=== PATIENT | female | born 1945 | race Caucasian/White ===

== ENCOUNTER 2022-11-25 07:01 | Outpatient (OUT) | payer MEDICARE, SELFPAY ==
[2022-11-25 07:23] LABS: Basophils Percent Auto 0.5 % (0.2-2.0); Eosinophils Absolute Auto 0.3 10^3/uL (0.0-0.7); Eosinophils Percent Auto 4.8 % (0.9-7.0); Hematocrit 36.6 % (36.0-48.0); Hemoglobin 12.2 g/dL (12.0-16.0); Immature Granulocytes Abs Auto 0.01 10^3/uL (0.00-0.03); Immature Granulocytes Pct Auto 0.2 % (0.0-0.5); Lymphocytes Absolute Auto 2.1 10^3/uL (1.2-3.8); Lymphocytes Percent Auto 37.3 % (20.5-60.0); Mean Corpuscular HGB Conc 33.3 g/dL (29.9-35.2); Mean Corpuscular Hemoglobin 29.2 pg (26.7-34.0); Mean Corpuscular Volume 87.6 fL (81.0-99.0); Mean Platelet Volume 8.2 fL (9.5-13.5); Monocytes Absolute Auto 0.6 10^3/uL (0.3-0.8); Monocytes Percent Auto 11.1 % (1.7-12.0); Neutrophils Absolute Auto 2.6 10^3/uL (1.4-6.5); Neutrophils Percent Auto 46.1 % (43.0-75.0); Platelet Count 422 10^3/uL (150-450); Red Blood Count 4.18 10^6/uL (4.20-5.40); Red Cell Distribution Width 12.7 % (11.0-15.0); White Blood Count 5.6 10^3/uL (4.0-11.0)
[2022-11-25 08:20] LABS: Alanine Aminotransferase 18 U/L (14-59); Albumin Globulin Ratio 0.9; Albumin Level 3.8 g/dL (3.4-5.0); Alkaline Phosphatase 63 U/L (46-116); Anion Gap 7.3; Aspartate Amino Transferase 10 U/L (15-37); BUN Creatinine Ratio 24.6; Bilirubin Total 0.4 mg/dL (0.2-1.0); Calcium 9.6 mg/dL (8.5-10.1); Carbon Dioxide 32.2 mmol/L (21.0-32.0); Chloride 95 mmol/L (98-107); Chol HDL Ratio 3.4; Cholesterol 290 mg/dL (<=200); Estimated GFR (African America >60 (>=60); Estimated GFR (Non-African Ame >60 (>=60); Glucose 104 mg/dL (74-106); HDL Cholesterol 85 mg/dL (40-60); Potassium 4.5 mmol/L (3.5-5.1); Sodium 130 mmol/L (136-145); Total Protein 7.8 g/dL (6.4-8.2); Triglycerides 87 mg/dL (<=150); VLDL CHOLESTEROL 17.4 mg/dL
[2022-11-25 08:37] LABS: Free T4 1.51 ng/dL (0.76-1.46)
== END 2022-11-25 07:02 | disposition home or self-care (01) ==
LOC: LAB 07:02
PROVIDERS: PCP Internal Medicine; Visit Provider Internal Medicine
DX: Z00.00 Encounter for general adult medical examination without abnormal findings (principal); E87.1 Hypo-osmolality and hyponatremia; E03.9 Hypothyroidism, unspecified
CPT/HCPCS: 36415; 80053; 80061; 84439; 84443; 85025

== ENCOUNTER 2023-02-23 08:23 | Outpatient (OUT) | payer MEDICARE, SELFPAY ==
[2023-02-23 09:12] LABS: Anion Gap 11.5; BUN Creatinine Ratio 26.3; Calcium 8.9 mg/dL (8.5-10.1); Carbon Dioxide 30.8 mmol/L (21.0-32.0); Chloride 95 mmol/L (98-107); Estimated GFR (African America >60 (>=60); Estimated GFR (Non-African Ame >60 (>=60); Glucose 95 mg/dL (74-106); Potassium 4.3 mmol/L (3.5-5.1); Sodium 133 mmol/L (136-145)
== END 2023-02-23 08:24 | disposition home or self-care (01) ==
LOC: LAB 08:23
PROVIDERS: PCP Internal Medicine; Visit Provider Internal Medicine
DX: E87.1 Hypo-osmolality and hyponatremia (principal)
CPT/HCPCS: 36415; 80048

== ENCOUNTER 2023-05-18 11:28 | Outpatient (OUT) | payer MEDICARE, SELFPAY ==
[2023-05-18 12:52] LABS: Anion Gap 9.7; BUN Creatinine Ratio 28.6; Calcium 9.2 mg/dL (8.5-10.1); Carbon Dioxide 31.4 mmol/L (21.0-32.0); Chloride 99 mmol/L (98-107); Estimated GFR (African America >60 (>=60); Estimated GFR (Non-African Ame >60 (>=60); Glucose 94 mg/dL (74-106); Potassium 4.1 mmol/L (3.5-5.1); Sodium 136 mmol/L (136-145)
== END 2023-05-18 11:29 | disposition home or self-care (01) ==
LOC: LAB 11:28
PROVIDERS: PCP Internal Medicine; Visit Provider Internal Medicine
DX: E87.1 Hypo-osmolality and hyponatremia (principal)
CPT/HCPCS: 36415; 80048

== ENCOUNTER 2023-08-17 07:49 | Outpatient (OUT) | payer MEDICARE, SELFPAY ==
--- OUTSIDE RECORDS SUMMARY | 2023-08-17 07:51 | XMS_ITS | CCD ---
Author Organization [facility] Care Team Providers Care Machine Gunner Name Role Phone MIRI ., DR OLENA Damon Admitting Unavailable MIRI ., DR OLENA Damon Attending Unavailable MIRI ., DR OLENA Damon Consulting Unavailable RESENDIZ, DR YI Primary Care Unavailable HAY ., DR RUIZ Consulting Unavailable IRMA, CHAYITO Consulting Unavailable FAWWAD, SHAIKH Valentino Consulting Unavailable SINGHANIA, MARCIE Consulting Unavailable HOFFERT, CHERI Consulting Unavailable LISSETTE, DR YI Admitting Unavailable RESENDIZ, DR YI Consulting Unavailable RESENDIZ, DR YI Attending Unavailable RESENDIZ, DR YI Primary Care Unavailable RESENDIZ, DR YI Attending Unavailable RESENDIZ, DR YI Consulting Unavailable RESENDIZ, DR YI Primary Care Unavailable RESENDIZ, DR YI Admitting Unavailable RESENDIZ, DR YI Attending Unavailable RESENDIZ, DR YI Consulting Unavailable RESENDIZ, DR YI Primary Care Unavailable RESENDIZ, DR YI Admitting Unavailable RESENDIZ, DR YI Admitting Unavailable RESENDIZ, DR YI Attending Unavailable RESENDIZ, DR YI Consulting Unavailable RESENDIZ, DR YI Primary Care Unavailable LISSETTE, DR YI Admitting Unavailable RESENDIZ, DR YI Attending Unavailable RESENDIZ, DR YI Consulting Unavailable RESENDIZ, DR YI Primary Care Unavailable RESENDIZ, DR YI Admitting Unavailable LISSETTE, DR YI Attending Unavailable RESENDIZ, DR YI Consulting Unavailable LISSETTE, DR YI Primary Care Unavailable Flaco Resendiz MD Unavailable [phone] Flaco Resendiz MD Primary Care Provider [phone] FLACO RESENDIZ Attending Unavailable FLACO RESENDIZ Attending Unavailable Allergies Allergy Classification Reported Allergen(s) Allergy Type Date of Onset Reaction(s) Facility (1 source) Gentamicin Drug Allergy 02-28-2021 Unknown [facility] Medications Current Medications Medication Drug Class(es) Dates Sig (Normalized) Sig (Original) [id number] 200 actuat albuterol 0.09 mg/actuat metered dose inhaler (2 sources) beta2-Adrenergic Agonist Start: 01-01-2023 take 2 puff(s) by inhalation every six hours for wheezing albuterol HFA 90 mcg/act inhaler Indications: Chronic obstructive pulmonary disease, unspecified COPD type (CMS/HCC) Inhale 2 puffs every 6 (six) hours if needed for wheezing or shortness of breath. 18 g 3 01/01/2023 Active Start: 03-24-2022 albuterol (2.5 MG/3ML) 0.083% nebulizer solution Take 2.5 mg by nebulization every 6 (six) hours if needed for wheezing or shortness of breath. 0 03/24/2022 Active ALPRAZolam 0.5 mg oral tablet (1 source) Benzodiazepine Start: 05-07-2023 take 1 tablet by mouth three times daily as needed for anxiety ALPRAZolam (Xanax) 0.5 MG tablet Indications: Generalized anxiety disorder (CMS/HCC) Take 1 tablet (0.5 mg) by mouth 3 (three) times a day as needed for anxiety 90 tablet 0 05/07/2023 Active amLODIPine 5 mg oral tablet (1 source) Dihydropyridine Calcium Channel Ramirez Start: 02-08-2022 take 1 tablet by mouth once daily amLODIPine (Norvasc) 5 MG tablet Take 5 mg by mouth 1 (one) time each day at the same time. 0 02/08/2022 Active aspirin 81 mg delayed release oral tablet (1 source) Platelet Aggregation Inhibitor, Nonsteroidal Anti-inflammatory Drug take 1 tablet by mouth in the morning aspirin 81 MG EC tablet Take 81 mg by mouth in the morning. 0 Active 30 actuat fluticasone furoate 0.1 mg/actuat / umeclidinium 0.0625 mg/actuat / vilanterol 0.025 mg/actuat dry powder inhaler (1 source) Anticholinergic, Corticosteroid, beta2-Adrenergic Agonist take 1 puff(s) by inhalation once daily Fluticasone-Umecl idin-Vilant (Trelegy Ellipta) 100-62.5-25 MCG/ACT aerosol powder Inhale 1 puff 1 (one) time each day at the same time. 0 Active ibuprofen 200 mg oral tablet (1 source) Nonsteroidal Anti-inflammatory Drug take 1 tablet by mouth every six hours as needed ibuprofen 200 MG tablet Take 200 mg by mouth every 6 (six) hours if needed. 0 Active levothyroxine sodium 0.088 mg oral tablet (1 source) l-Thyroxine take 1 tablet by mouth before mealtime levothyroxine (Synthroid, Levoxyl) 88 MCG tablet Take 88 mcg by mouth in the morning. Take before meals. 0 Active losartan potassium 50 mg oral tablet (1 source) Angiotensin 2 Receptor Ramirez Start: 04-05-2023 take 1 tablet by mouth twice daily losartan (Cozaar) 50 MG tablet Indications: Essential hypertension (CMS/HCC) TAKE ONE TABLET BY MOUTH TWICE A DAY 200 tablet 3 04/05/2023 Active meclizine hydrochloride 12.5 mg oral tablet (1 source) Antiemetic Start: 03-24-2022 take 1 tablet by mouth three times daily as needed meclizine (Antivert) 12.5 MG tablet Take 12.5 mg by mouth 3 (three) times a day as needed. 0 03/24/2022 Active Multiple Vitamin (multivitamin) capsule (1 source) take 1 capsule by mouth in the morning Multiple Vitamin (multivitamin) capsule Take 1 capsule by mouth in the morning. 0 Active OXYGEN-HELIUM IN (1 source) OXYGEN-HELIUM IN Inhale 1 (one) time each day at the same time. 0 Active polyethylene glycol 3350 04293 mg powder for oral solution (1 source) Osmotic Laxative polyethylene glycol, PEG, 3350 (MiraLax) 17 GM/SCOOP powder Take 17 g by mouth 1 (one) time. 0 Active sodium chloride 1000 mg oral tablet (1 source) Start: 03-20-2023 End: 04-23-2024 take 1 tablet by mouth in the morning sodium chloride 1 g tablet Indications: Hyponatremia Take 1 tablet (1 g) by mouth in the morning. 100 tablet 3 03/20/2023 04/23/2024 Active Problems Active Problems Problem Classification Problem Date Documented Da te Episodic/Chronic Adjustment disorders (1 source) Grief finding; Translations: [Adjustment disorder with depressed mood] Onset: 10-25-2022 10-25-2022 Chronic Anxiety disorders (2 sources) Generalized anxiety disorder; Translations: [Generalized anxiety disorder] Onset: 09-07-2021 10-25-2022 Chronic Chronic obstructive pulmonary disease and bronchiectasis (5 sources) Chronic obstructive pulmonary disease, unspecified; Translations: [Chronic obstructive pulmonary disease with (acute) exacerbation] Onset: 09-07-2021 10-25-2022 Chronic Complications of surgical procedures or medical care (1 source) Postablative hypothyroidism; Translations: [Postprocedural hypothyroidism] Onset: 10-25-2022 10-25-2022 Chronic Conditions associated with dizziness or vertigo (1 source) Active cochlear Meniere's disease; Translations: [Meniere's disease, unspecified ear] Onset: 10-25-2022 10-25-2022 Chronic Disorders of lipid metabolism (2 sources) Pure hypercholesterolemi a; Translations: [Pure hypercholesterolemi a, unspecified] Onset: 10-25-2022 10-25-2022 Chronic Essential hypertension (2 sources) Essential (primary) hypertension; Translations: [Essential hypertension] Onset: 09-07-2021 10-25-2022 Chronic Mood disorders (2 sources) Major depressive disorder, single episode, unspecified; Translations: [Atypical depressive disorder] Onset: 09-07-2021 10-25-2022 Chronic Nutritional deficiencies (1 source) Vitamin D deficiency; Translations: [Vitamin D deficiency, unspecified] Onset: 10-25-2022 10-25-2022 Chronic Osteoarthritis (1 source) Degenerative joint disease involving multiple joints; Translations: [Polyosteoarthritis , unspecified] Onset: 10-25-2022 10-25-2022 Chronic Osteoporosis (1 source) Disuse osteoporosis; Translations: [Other osteoporosis without current pathological fracture] Onset: 10-25-2022 10-25-2022 Chronic Pneumonia (except that caused by tuberculosis or sexually transmitted disease) (1 source) Pneumonia (except that caused by tuberculosis or sexually transmitted disease); Translations: [PNEUMONIA D/T CORONAVIRUS DIS 2019] Onset: 09-07-2021 Respiratory failure; insufficiency; arrest (adult) (2 sources) Acute and chronic respiratory failure with hypoxia; Translations: [Dependence on supplemental oxygen] Onset: 09-07-2021 Chronic Spondylosis; intervertebral disc disorders; other back problems (1 source) Lumbar spondylosis; Translations: [Spondylosis without myelopathy or radiculopathy, lumbar region] Onset: 10-25-2022 10-25-2022 Chronic Substance-related disorders (2 sources) Nicotine dependence; Translations: [Nicotine dependence, cigarettes, uncomplicated] Onset: 10-25-2022 10-25-2022 Chronic Thyroid disorders (2 sources) Hypothyroidism, unspecified; Translations: [Acquired hypothyroidism] Onset: 09-07-2021 10-25-2022 Chronic Viral infection (3 sources) COVID-19; Translations: [COVID-19] Onset: 08-31-2021 Past or Other Problems Problem Classification Problem Date Documented Date Episodic/Chronic Fluid and electrolyte disorders (6 sources) Hypo-osmolality and hyponatremia; Translations: [Hyponatremia] Onset: 09-07-2021 Episodic Other aftercare (1 source) Other custodial (current) drug therapy; Translations: [OTH CUSTODIAL CURRENT DRUG THERAPY] Onset: 09-07-2021 Episodic Other connective tissue disease (1 source) Muscle weakness (generalized); Translations: [MUSCLE WEAKNESS GENERALIZED] Onset: 09-07-2021 Episodic Other fractures (1 source) Compression fracture of vertebral column; Translations: [Collapsed vertebra, not elsewhere classified, site unspecified, initial encounter for fracture] Onset: 10-25-2022 10-25-2022 Episodic Other nervous system disorders (1 source) Abnormal gait; Translations: [Unspecified abnormalities of gait and mobility] Onset: 10-25-2022 10-25-2022 Episodic Respiratory failure; insufficiency; arrest (adult) (1 source) Hypoxemic respiratory failure; Translations: [Respiratory failure, unspecified with hypoxia] Onset: 10-25-2022 10-25-2022 Episodic Results Test Name Value Interpretation Reference Range Facility ALL BASIC METABOLIC PANELon 05-18-2023 Anion gap [Moles/Vol] 9.7 mmol/L [facility] Calcium [Mass/Vol] 9.2 mg/dL 8.5 - 10. 1 mg/dL [facility] Chloride [Moles/Vol] 99 mmol/L 98 - 107 mmol/L [facility] CO2 [Moles/Vol] 31.4 mmol/L 21.0 - 32.0 mmol/L [facility] Creatinine [Mass/Vol] 0.63 mg/dL 0.55 - 1.02 mg/dL [facility] GFR/1.73 sq M.predicted CKD-EPI (S/P/Bld) [Vol rate/Area] >60 60 - PINF [facility] Glucose [Mass/Vol] 94 mg/dL 74 - 106 mg/dL [facility] Potassium [Moles/Vol] 4.1 mmol/L 3.5 - 5.1 mmol/L [facility] Sodium [Moles/Vol] 136 mmol/L 136 - 145 mmol/L [facility] TBH EGFR-NON AF EQUATORIAL GUINEAN >60 60 - PINF [facility] Urea nitrogen [Mass/Vol] 18.0 mg/dL 7.0 - 18.0 mg/dL [facility] Urea nitrogen/Creatinine [Mass ratio] 28.6 mg/mg [facility] PROF CHEM 8 (BAS METB)on Anion gap [Moles/Vol] 6.9 mmol/L Normal [facility] Comment on above: Performed By: #### B MP #### [facility] [address] [address] [address] Darlene Lucero Calcium [Mass/Vol] 9.1 mg/dL Normal 8.5-10.1 [facility] Comment on above: Performed By: #### B MP #### [facility] [address] [address] [address] Darlene Lucero Chloride [Moles/Vol] 96 mmol/L Critically low 98-107 [facility] Comment on above: Performed By: #### B MP #### [facility] [address] [address] [address] Darlene Lucero CO2 [Moles/Vol] 33.6 mmol/L Critically high 21.0-32.0 [facility] Comment on above: Performed By: #### B MP #### [facility] [address] [address] [address] Darlene Lucero Creatinine [Mass/Vol] 0.69 mg/dL Normal 0.55-1.02 [facility] Comment on above: Performed By: #### B MP #### [facility] [address] [address] [address] Darlene Lucero EGFR-AF EQUATORIAL GUINEAN >60 Normal >=60 [facility] Comment on above: Performed By: #### B MP #### [facility] [address] [address] [address] Darlene Lucero EGFR-NON AF EQUATORIAL GUINEAN >60 Normal >=60 [facility] Comment on above: Performed By: #### B MP #### [facility] [address] [address] [address] Darlene Lucero Glucose [Mass/Vol] 92 mg/dL Normal 74-106 [facility] Comment on above: Performed By: #### B MP #### [facility] [address] [address] [address] Darlene Lucero Potassium [Moles/Vol] 4.5 mmol/L Normal 3.5-5.1 [facility] Comment on above: Performed By: #### B MP #### [facility] [address] [address] [address] Darlene Lucero Sodium [Moles/Vol] 132 mmol/L Critically low 136-145 [facility] Comment on above: Performed By: #### B MP #### [facility] [address] [address] [address] Darlene Lucero Urea nitrogen [Mass/Vol] 18.0 mg/dL Normal 7.0-18.0 [facility] Comment on above: Performed By: #### B MP #### [facility] [address] [address] [address] Darlene Lucero Urea nitrogen/Creatinine [Mass ratio] 26.1 mg/mg Normal [facility] Comment on above: Performed By: #### B MP #### [facility] [address] [address] [address] Darlene Lucero PROF CHEM 8 (BAS METB)on Anion gap [Moles/Vol] 7.1 mmol/L Normal [facility] Comment on above: Performed By: #### B MP #### [facility] [address] [address] [address] Darlene Lucero Calcium [Mass/Vol] 9.4 mg/dL Normal 8.5-10.1 [facility] Comment on above: Performed By: #### B MP #### [facility] [address] [address] [address] Darlene Lucero Chloride [Moles/Vol] 95 mmol/L Critically low 98-107 [facility] Comment on above: Performed By: #### B MP #### [facility] [address] [address] [address] Darlene Lucero CO2 [Moles/Vol] 34.3 mmol/L Critically high 21.0-32.0 [facility] Comment on above: Performed By: #### B MP #### [facility] [address] [address] [address] Darlene Lucero Creatinine [Mass/Vol] 0.52 mg/dL Critically low 0.55-1.02 [facility] Comment on above: Performed By: #### B MP #### [facility] [address] [address] [address] Darlene Lucero EGFR-AF EQUATORIAL GUINEAN >60 Normal >=60 [facility] Comment on above: Performed By: #### B MP #### [facility] [address] [address] [address] Darlene Lucero EGFR-NON AF EQUATORIAL GUINEAN >60 Normal >=60 [facility] Comment on above: Performed By: #### B MP #### [facility] [address] [address] [address] Darlene Lucero Glucose [Mass/Vol] 111 mg/dL Critically high 74-106 [facility] Comment on above: Performed By: #### B MP #### [facility] [address] [address] [address] Darlene Lucero Potassium [Moles/Vol] 4.4 mmol/L Normal 3.5-5.1 [facility] Comment on above: Performed By: #### B MP #### [facility] [address] [address] [address] Darlene Lucero Sodium [Moles/Vol] 132 mmol/L Critically low 136-145 [facility] Comment on above: Performed By: #### B MP #### [facility] [address] [address] [address] Darlene Lucero Urea nitrogen [Mass/Vol] 16.0 mg/dL Normal 7.0-18.0 [facility] Comment on above: Performed By: #### B MP #### [facility] [address] [place] [address] Dr. Darlene Lucero Urea nitrogen/Creatinine [Mass ratio] 30.8 mg/mg Normal [facility] Comment on above: Performed By: #### B MP #### [facility] [address] [place] [address] Dr. Darlene Lucero PROF CHEM 8 (BAS METB)on Anion gap [Moles/Vol] 8.6 mmol/L Normal [facility] Comment on above: Performed By: #### O SMOU #### [facility] [address] [place] [address] Dr. Darlene Lucero Calcium [Mass/Vol] 9.3 mg/dL Normal 8.5-10.1 [facility] Comment on above: Performed By: #### O SMOU #### [facility] [address] [place] [address] Dr. Darlene Lucero Chloride [Moles/Vol] 94 mmol/L Critically low 98-107 [facility] Comment on above: Performed By: #### O SMOU #### [facility] [address] [place] [address] Dr. Darlene Lucero CO2 [Moles/Vol] 33.0 mmol/L Critically high 21.0-32.0 [facility] Comment on above: Performed By: #### O SMOU #### [facility] [address] [place] [address] Dr. Darlene Lucero Creatinine [Mass/Vol] 0.64 mg/dL Normal 0.55-1.02 [facility] Comment on above: Performed By: #### O SMOU #### [facility] [address] [place] [address] Dr. Darlene Lucero EGFR-AF EQUATORIAL GUINEAN >60 Normal >=60 [facility] Comment on above: Performed By: #### O SMOU #### [facility] [address] [place] [address] Dr. Darlene Lucero EGFR-NON AF EQUATORIAL GUINEAN >60 Normal >=60 [facility] Comment on above: Performed By: #### O SMOU #### [facility] [address] [address] [address] Darlene Lucero Glucose [Mass/Vol] 134 mg/dL Critically high 74-106 [facility] Comment on above: Performed By: #### O SMOU #### [facility] [address] [address] [address] Darlene Lucero Potassium [Moles/Vol] 4.6 mmol/L Normal 3.5-5.1 [facility] Comment on above: Performed By: #### O SMOU #### [facility] [address] [place] [address] Dr. Darlene Lucero Sodium [Moles/Vol] 131 mmol/L Critically low 136-145 [facility] Comment on above: Performed By: #### O SMOU #### [facility] [address] [place] [address] Dr. Darlene Lucero Urea nitrogen [Mass/Vol] 10.0 mg/dL Normal 7.0-18.0 [facility] Comment on above: Performed By: #### O SMOU #### [facility] [address] [place] [address] Dr. Darlene Lucero Urea nitrogen/Creatinine [Mass ratio] 15.6 mg/mg Normal [facility] Comment on above: Performed By: #### O SMOU #### [facility] [address] [place] [address] Dr. Darlene Lucero PROF CHEM 8 (BAS METB)on Anion gap [Moles/Vol] 5.9 mmol/L Normal [facility] Comment on above: Performed By: #### B MP #### [facility] [address] [place] [address] Dr. Darlene Lucero Calcium [Mass/Vol] 9.0 mg/dL Normal 8.5-10.1 [facility] Comment on above: Performed By: #### B MP #### [facility] [address] [place] [address] Dr. Darlene Lucero Chloride [Moles/Vol] 96 mmol/L Critically low 98-107 [facility] Comment on above: Performed By: #### B MP #### [facility] [address] [address] [address] Darlene Lucero CO2 [Moles/Vol] 31.5 mmol/L Normal 21.0-32.0 [facility] Comment on above: Performed By: #### B MP #### [facility] [address] [address] [address] Dralene Lucero Creatinine [Mass/Vol] 0.57 mg/dL Normal 0.55-1.02 [facility] Comment on above: Performed By: #### B MP #### [facility] [address] [place] [address] Dr. Darlene Lucero EGFR-AF EQUATORIAL GUINEAN >60 Normal >=60 [facility] Comment on above: Performed By: #### B MP #### [facility] [address] [address] [address] Darlene Lucero EGFR-NON AF EQUATORIAL GUINEAN >60 Normal >=60 [facility] Comment on above: Performed By: #### B MP #### [facility] [address] [address] [address] Darlene Lucero Glucose [Mass/Vol] 94 mg/dL Normal 74-106 [facility] Comment on above: Performed By: #### B MP #### [facility] [address] [address] [address] Darlene Lucero Potassium [Moles/Vol] 4.4 mmol/L Normal 3.5-5.1 [facility] Comment on above: Performed By: #### B MP #### [facility] [address] [address] [address] Darlene Lucero Sodium [Moles/Vol] 129 mmol/L Critically low 136-145 [facility] Comment on above: Performed By: #### B MP #### [facility] [address] [address] [address] Darlene Lucero Urea nitrogen [Mass/Vol] 18.0 mg/dL Normal 7.0-18.0 [facility] Comment on above: Performed By: #### B MP #### [facility] [address] [place] [address] Dr. Darlene Lucero Urea nitrogen/Creatinine [Mass ratio] 31.6 mg/mg Normal [facility] Comment on above: Performed By: #### B MP #### [facility] [address] [place] [address] Dr. Darlene Lucero PROF 14(COMP METB)on 022 Albumin [Mass/Vol] 3.4 g/dL Normal 3.4-5.0 [facility] Comment on above: Performed By: #### B MP #### [facility] [address] [place] [address] Dr. Darlene Lucero Albumin/Globulin [Mass ratio] 0.9 {ratio} Normal [facility] Comment on above: Performed By: #### B MP #### [facility] [address] [place] [address] Dr. Darlene Lucero ALP [Catalytic activity/Vol] 63 U/L Normal 46-116 [facility] Comment on above: Performed By: #### B MP #### [facility] [address] [place] [address] Dr. Darlene Lucero ALT [Catalytic activity/Vol] 16 U/L Normal 14-59 [facility] Comment on above: Performed By: #### B MP #### [facility] [address] [place] [address] Dr. Darlene Lucero Anion gap [Moles/Vol] 11.5 mmol/L Normal [facility] Comment on above: Performed By: #### B MP #### [facility] [address] [place] [address] Dr. Darlene Lucero AST [Catalytic activity/Vol] 12 U/L Critically low 15-37 [facility] Comment on above: Performed By: #### B MP #### [facility] [address] [place] [address] Dr. Darlene Lucero Bilirubin [Mass/Vol] 0.3 mg/dL Normal 0.2-1.0 [facility] Comment on above: Performed By: #### B MP #### [facility] [address] [address] [address] Darlene Lucero Calcium [Mass/Vol] 8.9 mg/dL Normal 8.5-10.1 [facility] Comment on above: Performed By: #### B MP #### [facility] [address] [address] [address] Darlene Lucero Chloride [Moles/Vol] 96 mmol/L Critically low 98-107 [facility] Comment on above: Performed By: #### B MP #### [facility] [address] [address] [address] Darlene Lucero CO2 [Moles/Vol] 29.4 mmol/L Normal 21.0-32.0 [facility] Comment on above: Performed By: #### B MP #### [facility] [address] [address] [address] Darlene Lucero Creatinine [Mass/Vol] 0.70 mg/dL Normal 0.55-1.02 [facility] Comment on above: Performed By: #### B MP #### [facility] [address] [address] [address] Darlene Lucero EGFR-AF EQUATORIAL GUINEAN >60 Normal >=60 [facility] Comment on above: Performed By: #### B MP #### [facility] [address] [address] [address] Darlene Lucero EGFR-NON AF EQUATORIAL GUINEAN >60 Normal >=60 [facility] Comment on above: Performed By: #### B MP #### [facility] [address] [address] [address] Darlene Lucero Globulin (S) [Mass/Vol] 3.8 g/dL Normal [facility] Comment on above: Performed By: #### B MP #### [facility] [address] [address] [address] Darlene Lucero Glucose [Mass/Vol] 114 mg/dL Critically high 74-106 [facility] Comment on above: Performed By: #### B MP #### [facility] [address] [address] [address] Darlene Lucero Potassium [Moles/Vol] 3.9 mmol/L Normal 3.5-5.1 [facility] Comment on above: Performed By: #### B MP #### [facility] [address] [place] [address] Dr. Darlene Lucero Protein [Mass/Vol] 7.2 g/dL Normal 6.4-8.2 [facility] Comment on above: Performed By: #### B MP #### [facility] [address] [place] [address] Dr. Darlene Lucero Sodium [Moles/Vol] 133 mmol/L Critically low 136-145 [facility] Comment on above: Performed By: #### B MP #### [facility] [address] [place] [address] Dr. Darlene Lucero Urea nitrogen [Mass/Vol] 19.0 mg/dL Critically high 7.0-18.0 [facility] Comment on above: Performed By: #### B MP #### [facility] [address] [place] [address] Dr. Darlene Lucero Urea nitrogen/Creatinine [Mass ratio] 27.1 mg/mg Normal [facility] Comment on above: Performed By: #### B MP #### [facility] [address] [place] [address] Dr. Darlene Lucero PROF 14(COMP METB)on 022 Albumin [Mass/Vol] 3.2 g/dL Critically low 3.4-5.0 [facility] Comment on above: Performed By: #### B MP #### [facility] [address] [place] [address] Dr. Darlene Lucero Albumin/Globulin [Mass ratio] 0.9 {ratio} Normal [facility] Comment on above: Performed By: #### B MP #### [facility] [facility] [address] [place] [address] Dr. Darlene Lucero ALP [Catalytic activity/Vol] 60 U/L Normal 46-116 [facility] Comment on above: Performed By: #### B MP #### [facility] [address] [address] [address] Darlene Lucero ALT [Catalytic activity/Vol] 17 U/L Normal 14-59 [facility] Comment on above: Performed By: #### B MP #### [facility] [address] [place] [address] Dr. Darlene Lucero Anion gap [Moles/Vol] 8.0 mmol/L Normal [facility] Comment on above: Performed By: #### B MP #### [facility] [address] [address] [address] Darlene Lucero AST [Catalytic activity/Vol] 12 U/L Critically low 15-37 [facility] Comment on above: Performed By: #### B MP #### [facility] [address] [place] [address] Dr. Darlene Lucero Bilirubin [Mass/Vol] 0.4 mg/dL Normal 0.2-1.0 [facility] Comment on above: Performed By: #### B MP #### [facility] [address] [place] [address] Dr. Darlene Lucero Calcium [Mass/Vol] 9.4 mg/dL Normal 8.5-10.1 [facility] Comment on above: Performed By: #### B MP #### [facility] [address] [place] [address] Dr. Darlene Lucero Chloride [Moles/Vol] 96 mmol/L Critically low 98-107 [facility] Comment on above: Performed By: #### B MP #### [facility] [address] [place] [address] Dr. Darlene Lucero CO2 [Moles/Vol] 32.4 mmol/L Critically high 21.0-32.0 [facility] Comment on above: Performed By: #### B MP #### [facility] [address] [place] [address] Dr. Darlene Lucero Creatinine [Mass/Vol] 0.64 mg/dL Normal 0.55-1.02 [facility] Comment on above: Performed By: #### B MP #### [facility] [address] [place] [address] Dr. Darlene Lucero EGFR-AF EQUATORIAL GUINEAN >60 Normal >=60 [facility] Comment on above: Performed By: #### B MP #### [facility] [address] [address] [address] Darlene Lucero EGFR-NON AF EQUATORIAL GUINEAN >60 Normal >=60 [facility] Comment on above: Performed By: #### B MP #### [facility] [address] [address] [address] Darlene Lucero Globulin (S) [Mass/Vol] 3.7 g/dL Normal [facility] Comment on above: Performed By: #### B MP #### [facility] [address] [address] [address] Darlene Lucero Glucose [Mass/Vol] 63 mg/dL Critically low 74-106 [facility] Comment on above: Performed By: #### B MP #### [facility] [address] [address] [address] Darlene Lucero Potassium [Moles/Vol] 4.4 mmol/L Normal 3.5-5.1 [facility] Comment on above: Performed By: #### B MP #### [facility] [address] [address] [address] Darlene Lucero Protein [Mass/Vol] 6.9 g/dL Normal 6.4-8.2 [facility] Comment on above: Performed By: #### B MP #### [facility] [address] [address] [address] Darlene Lucero Sodium [Moles/Vol] 132 mmol/L Critically low 136-145 [facility] Comment on above: Performed By: #### B MP #### [facility] [address] [address] [address] Darlene Lucero Urea nitrogen [Mass/Vol] 16.0 mg/dL Normal 7.0-18.0 [facility] Comment on above: Performed By: #### B MP #### [facility] [address] [address] [address] Darlene Lucero Urea nitrogen/Creatinine [Mass ratio] 25.0 mg/mg Normal [facility] Comment on above: Performed By: #### B MP #### [facility] [address] [place] [address] Dr. Darlene Lucero OSMOLALITYon 09-07-2021 Osmolality [Osmolality] 268 mosm/kg Critically low 280-301 [facility] Comment on above: Performed By: #### U WILLEM #### [facility] [address] [place] [address] Dr. Darlene Lucero OSMOLALITY URINEon 2 Osmolality, Urine 565 mOsmol/kg Normal [facility] Comment on above: Result Comment: 24 h r : 300 - 900 Random: 50 - 1400 After 12hr fluid restriction: >850 Performed By: #### B MP #### [facility] [address] [place] [address] Dr. Darlene Lucero CBC AUTO DIFFon 09-05-2021 BASO # 0.0 103/ul Normal 0.0-0.1 [facility] Comment on above: Performed By: #### B MP #### [facility] [address] [place] [address] Dr. Darlene Lucero Basophils/100 WBC (Bld) 0.3 % Normal 0.2-2.0 [facility] Comment on above: Performed By: #### B MP #### [facility] [address] [place] [address] Dr. Darlene Lucero EO # 0.0 103/ul Normal 0.0-0.7 [facility] Comment on above: Performed By: #### B MP #### [facility] [address] [place] [address] Dr. Darlene Lucero Eosinophils/100 WBC (Bld) 0.1 % Critically low 0.9-7.0 [facility] Comment on above: Performed By: #### B MP #### [facility] [address] [place] [address] Dr. Darlene Lucero Erythrocyte distribution width (RBC) [Ratio] 12.9 % Normal 11.0-15.0 [facility] Comment on above: Performed By: #### B MP #### [facility] [address] [place], [place] [id number] Dr. Darlene Lucero Hematocrit (Bld) [Volume fraction] 32.5 % Critically low 36.0-48.0 [facility] Comment on above: Performed By: #### B MP #### [facility] [address] [place] [address] Dr. Darlene Lucero Hemoglobin (Bld) [Mass/Vol] 10.5 g/dL Critically low 12.0-16.0 [facility] Comment on above: Performed By: #### B MP #### [facility] [address] [place] [address] Dr. Darlene Lucero IG # 0.11 10e3/ul Critically high 0.00-0.03 [facility] Comment on above: Performed By: #### B MP #### [facility] [address] [place] [address] Dr. Darlene Lucero IG % 1.6 % Critically high 0.0-0.5 [facility] Comment on above: Performed By: #### B MP #### [facility] [address] [place] [address] Dr. Darlene Lucero LYMPH # 1.5 103/ul Normal 1.2-3.8 [facility] Comment on above: Performed By: #### B MP #### [facility] [address] [place] [address] Dr. Darlene Lucero Lymphocytes/100 WBC (Bld) 22.4 % Normal 20.5-60.0 [facility] Comment on above: Performed By: #### B MP #### [facility] [address] [place] [address] Dr. Darlene Lucero MANUAL DIFF REQ NO Normal [facility] Comment on above: Performed By: #### B MP #### [facility] [address] [place] [address] Dr. Darlene Lucero MCH (RBC) [Entitic mass] 29.5 pg Normal 26.7-34.0 [facility] Comment on above: Performed By: #### B MP #### [facility] [address] [place] [address] Dr. Darlene Lucero MCHC (RBC) [Mass/Vol] 32.3 g/dL Normal 29.9-35.2 [facility] Comment on above: Performed By: #### B MP #### [facility] [address] [address] [address] Darlene Lucero MCV (RBC) [Entitic vol] 91.3 fL Normal 81.0-99.0 [facility] Comment on above: Performed By: #### B MP #### [facility] [address] [address] [address] Darlene Lucero MONO # 0.8 103/ul Normal 0.3-0.8 [facility] Comment on above: Performed By: #### B MP #### [facility] [address] [place] [address] Dr. Darlene Lucero Monocytes/100 WBC (Bld) 11.6 % Normal 1.7-12.0 [facility] Comment on above: Performed By: #### B MP #### [facility] [address] [address] [address] Darlene Lucero NEUT # 4.4 103/ul Normal 1.4-6.5 [facility] Comment on above: Performed By: #### B MP #### [facility] [address] [place] [address] Dr. Darlene Lucero Neutrophils/100 WBC (Bld) 64.0 % Normal 43.0-75.0 [facility] Comment on above: Performed By: #### B MP #### [facility] [address] [address] [address] Darlene Lucero Platelet mean volume (Bld) [Entitic vol] 8.1 fL Critically low 9.5-13.5 [facility] Comment on above: Performed By: #### B MP #### [facility] [address] [place] [address] Dr. Darlene Lucero PLT 571 103/ul Critically high 150-450 [facility] Comment on above: Performed By: #### B MP #### [facility] [address] [place] [address] Dr. Darlene Lucero RBC 3.56 106/ul Critically low 4.20-5.40 [facility] Comment on above: Performed By: #### B MP #### [facility] [address] [place] [address] Dr. Darlene Lucero WBC 6.9 103/ul Normal 4.0-11.0 [facility] Comment on above: Performed By: #### B MP #### [facility] [address] [place] [address] Dr. Darlene Lucero Covid-19 PCR ([facility])on 08-15 SARS-CoV-2 (COVID-19) RNA TASHA+probe Ql (Unsp spec) Detected Critically abnormal NOT DETECTED [facility] Comment on above: Result Comment: This test is not yet approved or cleared by the [place] FDA. When there are no FDA-approved or cleared tests available, and other criteria are met, FDA can make tests available under an emergency access mechanism called an Emergency Use Authorization (EUA). The EUA for this test is supported by the Executive Vice President of Health and Human Service's (HHS's) declaration that circumstances exist to justify the emergency use of in vitro diagnostics for the detection and/or diagnosis of the virus that causes COVID-19. This EUA will remain in effect (meaning this test can be used) for the duration of the COVID-19 declaration justifying emergency of IVDs, unless it is terminated or revoked by FDA (after which the test may no longer be used). Performed By: #### B MP #### [facility] [address] [place] [address] Dr. Darlene Lucero PROF CHEM 8 (BAS METB)on Anion gap [Moles/Vol] 7.3 mmol/L Normal [facility] Comment on above: Performed By: #### B MP #### [facility] [address] [place], [place] [id number] Dr. Darlene Lucero Calcium [Mass/Vol] 8.5 mg/dL Normal 8.5-10.1 [facility] Comment on above: Performed By: #### B MP #### [facility] [address] [place] [address] Dr. Darlene Lucero Chloride [Moles/Vol] 101 mmol/L Normal 98-107 [facility] Comment on above: Performed By: #### B MP #### [facility] [address] [address] [address] Darlene Lucero CO2 [Moles/Vol] 31.6 mmol/L Normal 21.0-32.0 [facility] Comment on above: Performed By: #### B MP #### [facility] [address] [address] [address] Darlene Lucero Creatinine [Mass/Vol] 0.49 mg/dL Critically low 0.55-1.02 [facility] Comment on above: Performed By: #### B MP #### [facility] [address] [address] [address] Darlene Lucero EGFR-AF EQUATORIAL GUINEAN >60 Normal >=60 [facility] Comment on above: Performed By: #### B MP #### [facility] [address] [address] [address] Darlene Lucero EGFR-NON AF EQUATORIAL GUINEAN >60 Normal >=60 [facility] Comment on above: Performed By: #### B MP #### [facility] [address] [address] [address] Darlene Lucero Glucose [Mass/Vol] 88 mg/dL Normal 74-106 [facility] Comment on above: Performed By: #### B MP #### [facility] [address] [address] [address] Darlene Lucero Potassium [Moles/Vol] 3.9 mmol/L Normal 3.5-5.1 [facility] Comment on above: Performed By: #### B MP #### [facility] [address] [address] [address] Darlene Lucero Sodium [Moles/Vol] 136 mmol/L Normal 136-145 [facility] Comment on above: Performed By: #### B MP #### [facility] [address] [address] [address] Darlene Lucero Urea nitrogen [Mass/Vol] 15.0 mg/dL Normal 7.0-18.0 [facility] Comment on above: Performed By: #### B MP #### [facility] [address] [place] [address] Dr. Darlene Lucero Urea nitrogen/Creatinine [Mass ratio] 30.6 mg/mg Normal [facility] Comment on above: Performed By: #### B MP #### [facility] [address] [place] [address] Dr. Darlene Lucero CBC AUTO DIFFon 09-04-2021 BASO # 0.0 103/ul Normal 0.0-0.1 [facility] Comment on above: Performed By: #### O SMOU #### [facility] [address] [place] [address] Dr. Darlene Lucero Basophils/100 WBC (Bld) 0.2 % Normal 0.2-2.0 [facility] Comment on above: Performed By: #### O SMOU #### [facility] [address] [place] [address] Dr. Darlene Lucero EO # 0.0 103/ul Normal 0.0-0.7 [facility] Comment on above: Performed By: #### O SMOU #### [facility] [address] [place] [address] Dr. Darlene Lucero Eosinophils/100 WBC (Bld) 0.0 % Critically low 0.9-7.0 [facility] Comment on above: Performed By: #### O SMOU #### [facility] [address] [place] [address] Dr. Darlene Lucero Erythrocyte distribution width (RBC) [Ratio] 12.7 % Normal 11.0-15.0 [facility] Comment on above: Performed By: #### O SMOU #### [facility] [address] [place] [address] Dr. Darlene Lucero Hematocrit (Bld) [Volume fraction] 32.0 % Critically low 36.0-48.0 [facility] Comment on above: Performed By: #### O SMOU #### [facility] [address] [place] [address] Dr. Darlene Lucero Hemoglobin (Bld) [Mass/Vol] 10.4 g/dL Critically low 12.0-16.0 [facility] Comment on above: Performed By: #### O SMOU #### [facility] [address] [place] [address] Dr. Darlene Lucero IG # 0.07 10e3/ul Critically high 0.00-0.03 [facility] Comment on above: Performed By: #### O SMOU #### [facility] [address] [place] [address] Dr. Darlene Lucero IG % 1.1 % Critically high 0.0-0.5 [facility] Comment on above: Performed By: #### O SMOU #### [facility] [address] [place] [address] Dr. Darlene Lucero LYMPH # 1.4 103/ul Normal 1.2-3.8 [facility] Comment on above: Performed By: #### O SMOU #### [facility] [address] [place] [address] Dr. Darlene Lucero Lymphocytes/100 WBC (Bld) 21.9 % Normal 20.5-60.0 [facility] Comment on above: Performed By: #### O SMOU #### [facility] [address] [place] [address] Dr. Darlene Lucero MANUAL DIFF REQ NO Normal [facility] Comment on above: Performed By: #### O SMOU #### [facility] [address] [place] [address] Dr. Darlene Lucero MCH (RBC) [Entitic mass] 29.4 pg Normal 26.7-34.0 [facility] Comment on above: Performed By: #### O SMOU #### [facility] [address] [place] [address] Dr. Darlene Lucero MCHC (RBC) [Mass/Vol] 32.5 g/dL Normal 29.9-35.2 [facility] Comment on above: Performed By: #### O SMOU #### [facility] [address] [place] [address] Dr. Darlene Lucero MCV (RBC) [Entitic vol] 90.4 fL Normal 81.0-99.0 [facility] Comment on above: Performed By: #### O SMOU #### [facility] [address] [place] [address] Dr. Darlene Lucero MONO # 0.8 103/ul Normal 0.3-0.8 [facility] Comment on above: Performed By: #### O SMOU #### [facility] [address] [place] [address] Dr. Darlene Lucero Monocytes/100 WBC (Bld) 12.6 % Critically high 1.7-12.0 [facility] Comment on above: Performed By: #### O SMOU #### [facility] [address] [place] [address] Dr. Darlene Lucero NEUT # 4.2 103/ul Normal 1.4-6.5 [facility] Comment on above: Performed By: #### O SMOU #### [facility] [address] [place] [address] Dr. Darlene Lucero Neutrophils/100 WBC (Bld) 64.2 % Normal 43.0-75.0 [facility] Comment on above: Performed By: #### O SMOU #### [facility] [address] [place] [address] Dr. Darlene Lucero Platelet mean volume (Bld) [Entitic vol] 8.0 fL Critically low 9.5-13.5 [facility] Comment on above: Performed By: #### O SMOU #### [facility] [address] [place] [address] Dr. Darlene Lucero PLT 524 103/ul Critically high 150-450 [facility] Comment on above: Performed By: #### O SMOU #### [facility] [address] [place] [address] Dr. Darlene Lucero RBC 3.54 106/ul Critically low 4.20-5.40 [facility] Comment on above: Performed By: #### O SMOU #### [facility] [address] [place] [address] Dr. Darlene Lucero WBC 6.5 103/ul Normal 4.0-11.0 [facility] Comment on above: Performed By: #### O SMOU #### [facility] [address] [address] [address] Darlene Lucero POINT OF CARE GLUCOSEon 08-15 Glucose [Mass/Vol] 120 mg/dL Critically high 74-106 [facility] Comment on above: Performed By: #### U WILLEM #### [facility] [address] [address] [address] Darlene Lucero Glucose [Mass/Vol] 129 mg/dL Critically high 74-106 [facility] Comment on above: Performed By: #### P OCGLUC #### [facility] [address] [place] [address] Dr. Darlene Lucero Glucose [Mass/Vol] 111 mg/dL Critically high 74-106 [facility] Comment on above: Performed By: #### B MP #### [facility] [address] [place] [address] Dr. Darlene Lucero Glucose [Mass/Vol] 89 mg/dL Normal 74-106 [facility] Comment on above: Performed By: #### B MP #### [facility] [address] [address] [address] Darlene Lucero PROF CHEM 8 (BAS METB)on Anion gap [Moles/Vol] 8.0 mmol/L Normal [facility] Comment on above: Performed By: #### B MP #### [facility] [address] [place] [address] Dr. Darlene Lucero Calcium [Mass/Vol] 8.6 mg/dL Normal 8.5-10.1 [facility] Comment on above: Performed By: #### B MP #### [facility] [address] [place] [address] Dr. Darlene Lucreo Chloride [Moles/Vol] 97 mmol/L Critically low 98-107 [facility] Comment on above: Performed By: #### B MP #### [facility] [address] [place] [address] Dr. Darlene Lucero CO2 [Moles/Vol] 31.6 mmol/L Normal 21.0-32.0 [facility] Comment on above: Performed By: #### B MP #### [facility] [address] [address] [address] Darlene Lucero Creatinine [Mass/Vol] 0.63 mg/dL Normal 0.55-1.02 [facility] Comment on above: Performed By: #### B MP #### [facility] [address] [address] [address] Darlene Lucero EGFR-AF EQUATORIAL GUINEAN >60 Normal >=60 [facility] Comment on above: Performed By: #### B MP #### [facility] [address] [address] [address] Darlene Lucero EGFR-NON AF EQUATORIAL GUINEAN >60 Normal >=60 [facility] Comment on above: Performed By: #### B MP #### [facility] [address] [place] [address] Dr. Darlene Lucero Glucose [Mass/Vol] 96 mg/dL Normal 74-106 [facility] Comment on above: Performed By: #### B MP #### [facility] [address] [place] [address] Dr. Darlene Lucero Potassium [Moles/Vol] 3.6 mmol/L Normal 3.5-5.1 [facility] Comment on above: Performed By: #### B MP #### [facility] [address] [place] [address] Dr. Darlene Lucero Sodium [Moles/Vol] 133 mmol/L Critically low 136-145 [facility] Comment on above: Performed By: #### B MP #### [facility] [address] [place] [address] Dr. Darlene Lucero Urea nitrogen [Mass/Vol] 18.0 mg/dL Normal 7.0-18.0 [facility] Comment on above: Performed By: #### B MP #### [facility] [address] [address] [address] Darlene Lucero Urea nitrogen/Creatinine [Mass ratio] 28.6 mg/mg Normal [facility] Comment on above: Performed By: #### B MP #### [facility] [address] [address] [address] Darlene Lucero CBC AUTO DIFFon 09-03-2021 BASO # 0.0 103/ul Normal 0.0-0.1 [facility] Comment on above: Performed By: #### B MP #### [facility] [address] [address] [address] Darlene Lcuero Basophils/100 WBC (Bld) 0.0 % Critically low 0.2-2.0 [facility] Comment on above: Performed By: #### B MP #### [facility] [address] [address] [address] Darlene Lucero EO # 0.0 103/ul Normal 0.0-0.7 [facility] Comment on above: Performed By: #### B MP #### [facility] [address] [place] [address] Dr. Darlene Lucero Eosinophils/100 WBC (Bld) 0.0 % Critically low 0.9-7.0 [facility] Comment on above: Performed By: #### B MP #### [facility] [address] [address] [address] Darlene Lucero Erythrocyte distribution width (RBC) [Ratio] 12.3 % Normal 11.0-15.0 [facility] Comment on above: Performed By: #### B MP #### [facility] [address] [address] [address] Darlene Lucero Hematocrit (Bld) [Volume fraction] 32.1 % Critically low 36.0-48.0 [facility] Comment on above: Performed By: #### B MP #### [facility] [address] [address] [address] Darlene Lucero Hemoglobin (Bld) [Mass/Vol] 10.9 g/dL Critically low 12.0-16.0 [facility] Comment on above: Performed By: #### B MP #### [facility] [address] [address] [address] Darlene Lucero IG # 0.04 10e3/ul Critically high 0.00-0.03 [facility] Comment on above: Performed By: #### B MP #### [facility] [address] [address] [address] Darlene Lucero IG % 0.7 % Critically high 0.0-0.5 [facility] Comment on above: Performed By: #### B MP #### [facility] [address] [place] [address] Dr. Darlene Lucero LYMPH # 1.2 103/ul Normal 1.2-3.8 [facility] Comment on above: Performed By: #### B MP #### [facility] [address] [place] [address] Dr. Darlene Lucero Lymphocytes/100 WBC (Bld) 21.3 % Normal 20.5-60.0 [facility] Comment on above: Performed By: #### B MP #### [facility] [address] [place] [address] Dr. Darlene Lucero MANUAL DIFF REQ NO Normal [facility] Comment on above: Performed By: #### B MP #### [facility] [address] [place] [address] Dr. Darlene Lucero MCH (RBC) [Entitic mass] 29.9 pg Normal 26.7-34.0 [facility] Comment on above: Performed By: #### B MP #### [facility] [address] [place] [address] Dr. Darlene Lucero MCHC (RBC) [Mass/Vol] 34.0 g/dL Normal 29.9-35.2 [facility] Comment on above: Performed By: #### B MP #### [facility] [address] [place] [address] Dr. Darlene Lucero MCV (RBC) [Entitic vol] 87.9 fL Normal 81.0-99.0 [facility] Comment on above: Performed By: #### B MP #### [facility] [address] [place] [address] Dr. Dralene Lucero MONO # 1.0 103/ul Critically high 0.3-0.8 [facility] Comment on above: Performed By: #### B MP #### [facility] [address] [place] [address] Dr. Darlene Lucero Monocytes/100 WBC (Bld) 17.2 % Critically high 1.7-12.0 [facility] Comment on above: Performed By: #### B MP #### [facility] [address] [place] [address] Dr. Darlene Lucero NEUT # 3.5 103/ul Normal 1.4-6.5 [facility] Comment on above: Performed By: #### B MP #### [facility] [address] [place] [address] Dr. Darlene Lucero Neutrophils/100 WBC (Bld) 60.8 % Normal 43.0-75.0 [facility] Comment on above: Performed By: #### B MP #### [facility] [address] [place] [address] Dr. Darlene Lucero Platelet mean volume (Bld) [Entitic vol] 8.1 fL Critically low 9.5-13.5 [facility] Comment on above: Performed By: #### B MP #### [facility] [address] [place] [address] Dr. Darlene Lucero PLT 499 103/ul Critically high 150-450 [facility] Comment on above: Performed By: #### B MP #### [facility] [address] [place] [address] Dr. Darlene Lucero RBC 3.65 106/ul Critically low 4.20-5.40 [facility] Comment on above: Performed By: #### B MP #### [facility] [address] [place] [address] Dr. Darlene Lucero WBC 5.8 103/ul Normal 4.0-11.0 [facility] Comment on above: Performed By: #### B MP #### [facility] [address] [place] [address] Dr. Darlene Lucero Covid-19 PCR ([facility])on 08-15 SARS-CoV-2 (COVID-19) RNA TASHA+probe Ql (Unsp spec) Detected Critically abnormal NOT DETECTED [facility] Comment on above: Result Comment: This test is not yet approved or cleared by the [place] FDA. When there are no FDA-approved or cleared tests available, and other criteria are met, FDA can make tests available under an emergency access mechanism called an Emergency Use Authorization (EUA). The EUA for this test is supported by the Executive Vice President of Health and Human Service's declaration that circumstances exist to justify the emergency use of in vitro diagnostics for the detection and/or diagnosis of the virus that causes COVID-19. This EUA will remain in effect for the duration of the COVID-19 declaration justifying emergency of IVDs, unless it is terminated or revoked by the FDA (after which the test may no longer be used). Performed By: #### B MP #### [facility] [address] [place] [address] Dr. Darlene Lucero POINT OF CARE GLUCOSEon 08-15 Glucose [Mass/Vol] 131 mg/dL Critically high 74-106 [facility] Comment on above: Performed By: #### B MP #### [facility] [address] [place] [address] Dr. Darlene Lucero Glucose [Mass/Vol] 131 mg/dL Critically high 74-106 [facility] Comment on above: Performed By: #### B MP #### [facility] [address] [place] [address] Dr. Darlene Lucero PROF CHEM 8 (BAS METB)on Anion gap [Moles/Vol] 9.4 mmol/L Normal [facility] Comment on above: Performed By: #### B MP #### [facility] [address] [place] [address] Dr. Darlene Lucero Calcium [Mass/Vol] 8.6 mg/dL Normal 8.5-10.1 [facility] Comment on above: Performed By: #### B MP #### [facility] [address] [place] [address] Dr. Darlene Lucero Chloride [Moles/Vol] 97 mmol/L Critically low 98-107 [facility] Comment on above: Performed By: #### B MP #### [facility] [address] [address] [address] Darlene Lucero CO2 [Moles/Vol] 28.6 mmol/L Normal 21.0-32.0 [facility] Comment on above: Performed By: #### B MP #### [facility] [address] [address] [address] Darlene Lucero Creatinine [Mass/Vol] 0.73 mg/dL Normal 0.55-1.02 [facility] Comment on above: Performed By: #### B MP #### [facility] [address] [address] [address] Darlene Lucero EGFR-AF EQUATORIAL GUINEAN >60 Normal >=60 [facility] Comment on above: Performed By: #### B MP #### [facility] [address] [place] [address] Dr. Darlene Lucero EGFR-NON AF EQUATORIAL GUINEAN >60 Normal >=60 [facility] Comment on above: Performed By: #### B MP #### [facility] [address] [address] [address] Darlene Lucero Glucose [Mass/Vol] 172 mg/dL Critically high 74-106 [facility] Comment on above: Performed By: #### B MP #### [facility] [address] [address] [address] Darlene Lucero Potassium [Moles/Vol] 4.0 mmol/L Normal 3.5-5.1 [facility] Comment on above: Performed By: #### B MP #### [facility] [address] [address] [address] Darlene Lucero Sodium [Moles/Vol] 131 mmol/L Critically low 136-145 [facility] Comment on above: Performed By: #### B MP #### [facility] [address] [address] [address] Darlene Lucero Urea nitrogen [Mass/Vol] 19.0 mg/dL Critically high 7.0-18.0 [facility] Comment on above: Performed By: #### B MP #### [facility] [address] [address] [address] Darlene Lucero Urea nitrogen/Creatinine [Mass ratio] 26.0 mg/mg Normal [facility] Comment on above: Performed By: #### B MP #### [facility] [address] [address] [address] Darlene Lucero Anion gap [Moles/Vol] 10.3 mmol/L Normal [facility] Comment on above: Performed By: #### B MP #### [facility] [address] [address] [address] Darlene Lucero Calcium [Mass/Vol] 8.4 mg/dL Critically low 8.5-10.1 [facility] Comment on above: Performed By: #### B MP #### [facility] [address] [place] [address] Dr. Darlene Lucero Chloride [Moles/Vol] 90 mmol/L Critically low 98-107 [facility] Comment on above: Performed By: #### B MP #### [facility] [address] [address] [address] Darlene Lucero CO2 [Moles/Vol] 28.0 mmol/L Normal 21.0-32.0 [facility] Comment on above: Performed By: #### B MP #### [facility] [address] [place] [address] Dr. Darlene Lucero Creatinine [Mass/Vol] 0.69 mg/dL Normal 0.55-1.02 [facility] Comment on above: Performed By: #### B MP #### [facility] [address] [address] [address] Darlene Lucero EGFR-AF EQUATORIAL GUINEAN >60 Normal >=60 [facility] Comment on above: Performed By: #### B MP #### [facility] [address] [address] [address] Darlene Lucero EGFR-NON AF EQUATORIAL GUINEAN >60 Normal >=60 [facility] Comment on above: Performed By: #### B MP #### [facility] [address] [place] [address] Dr. Darlene Lucero Glucose [Mass/Vol] 95 mg/dL Normal 74-106 [facility] Comment on above: Performed By: #### B MP #### [facility] [address] [address] [address] Darlene Lucero Potassium [Moles/Vol] 3.3 mmol/L Critically low 3.5-5.1 [facility] Comment on above: Performed By: #### B MP #### [facility] [address] [address] [address] Darlene Lucero Sodium [Moles/Vol] 125 mmol/L Critically low 136-145 [facility] Comment on above: Performed By: #### B MP #### [facility] [address] [address] [address] Darlene Lucero Urea nitrogen [Mass/Vol] 18.0 mg/dL Normal 7.0-18.0 [facility] Comment on above: Performed By: #### B MP #### [facility] [address] [address] [address] Darlene Lucero Urea nitrogen/Creatinine [Mass ratio] 26.1 mg/mg Normal [facility] Comment on above: Performed By: #### B MP #### [facility] [address] [address] [address] Darlene Lucero Anion gap [Moles/Vol] 9.0 mmol/L Normal [facility] Comment on above: Performed By: #### O SMOU #### [facility] [address] [address] [address] Darlene Lucero Calcium [Mass/Vol] 8.3 mg/dL Critically low 8.5-10.1 [facility] Comment on above: Performed By: #### O SMOU #### [facility] [address] [address] [address] Darlene Lucero Chloride [Moles/Vol] 92 mmol/L Critically low 98-107 [facility] Comment on above: Performed By: #### O SMOU #### [facility] [address] [address] [address] Darlene Lucero CO2 [Moles/Vol] 28.8 mmol/L Normal 21.0-32.0 [facility] Comment on above: Performed By: #### O SMOU #### [facility] [address] [address] [address] Darlene Lucero Creatinine [Mass/Vol] 0.65 mg/dL Normal 0.55-1.02 [facility] Comment on above: Performed By: #### O SMOU #### [facility] [address] [address] [address] Darlene Lucero EGFR-AF EQUATORIAL GUINEAN >60 Normal >=60 [facility] Comment on above: Performed By: #### O SMOU #### [facility] [address] [address] [address] Darlene Lucero EGFR-NON AF EQUATORIAL GUINEAN >60 Normal >=60 [facility] Comment on above: Performed By: #### O SMOU #### [facility] [address] [place] [address] Dr. Darlene Lucero Glucose [Mass/Vol] 89 mg/dL Normal 74-106 [facility] Comment on above: Performed By: #### O SMOU #### [facility] [address] [place] [address] Dr. Darlene Lucero Potassium [Moles/Vol] 3.8 mmol/L Normal 3.5-5.1 [facility] Comment on above: Performed By: #### O SMOU #### [facility] [address] [place] [address] Dr. Darlene Lucero Sodium [Moles/Vol] 126 mmol/L Critically low 136-145 [facility] Comment on above: Performed By: #### O SMOU #### [facility] [address] [place] [address] Dr. Darlene Lucero Urea nitrogen [Mass/Vol] 19.0 mg/dL Critically high 7.0-18.0 [facility] Comment on above: Performed By: #### O SMOU #### [facility] [address] [place] [address] Dr. Darlene Lucero Urea nitrogen/Creatinine [Mass ratio] 29.2 mg/mg Normal [facility] Comment on above: Performed By: #### O SMOU #### [facility] [address] [address] [address] Darlene Lucero Anion gap [Moles/Vol] 9.0 mmol/L Normal [facility] Comment on above: Performed By: #### O SMOU #### [facility] [address] [place] [address] Dr. Darlene Lucero Calcium [Mass/Vol] 8.2 mg/dL Critically low 8.5-10.1 [facility] Comment on above: Performed By: #### O SMOU #### [facility] [address] [place] [address] Dr. Darlene Lucero Chloride [Moles/Vol] 92 mmol/L Critically low 98-107 [facility] Comment on above: Performed By: #### O SMOU #### [facility] [address] [place] [address] Dr. Darlene Lucero CO2 [Moles/Vol] 26.8 mmol/L Normal 21.0-32.0 [facility] Comment on above: Performed By: #### O SMOU #### [facility] [address] [place] [address] Dr. Darlene Lucero Creatinine [Mass/Vol] 0.68 mg/dL Normal 0.55-1.02 [facility] Comment on above: Performed By: #### O SMOU #### [facility] [address] [place] [address] Dr. Darlene Lucero EGFR-AF EQUATORIAL GUINEAN >60 Normal >=60 [facility] Comment on above: Performed By: #### O SMOU #### [facility] [address] [place] [address] Dr. Darlene Lucero EGFR-NON AF EQUATORIAL GUINEAN >60 Normal >=60 [facility] Comment on above: Performed By: #### O SMOU #### [facility] [address] [place] [address] Dr. Darlene Lucero Glucose [Mass/Vol] 94 mg/dL Normal 74-106 [facility] Comment on above: Performed By: #### O SMOU #### [facility] [address] [place] [address] Dr. Darlene Lucero Potassium [Moles/Vol] 3.8 mmol/L Normal 3.5-5.1 [facility] Comment on above: Performed By: #### O SMOU #### [facility] [address] [place] [address] Dr. Darlene Lucero Sodium [Moles/Vol] 124 mmol/L Critically low 136-145 [facility] Comment on above: Result Comment: repe ated Performed By: #### O SMOU #### [facility] [address] [place] [address] Dr. Darlene Lucero Urea nitrogen [Mass/Vol] 20.0 mg/dL Critically high 7.0-18.0 [facility] Comment on above: Performed By: #### O SMOU #### [facility] [address] [place] [address] Dr. Darlene Lucero Urea nitrogen/Creatinine [Mass ratio] 29.4 mg/mg Normal [facility] Comment on above: Performed By: #### O SMOU #### [facility] [address] [place] [address] Dr. Darlene Lucero CBC AUTO DIFFon 09-02-2021 BASO # 0.0 103/ul Normal 0.0-0.1 [facility] Comment on above: Performed By: #### B MP #### [facility] [address] [place] [address] Dr. Darlene Lucero Basophils/100 WBC (Bld) 0.1 % Critically low 0.2-2.0 [facility] Comment on above: Performed By: #### B MP #### [facility] [address] [place] [address] Dr. Darlene Lucero EO # 0.0 103/ul Normal 0.0-0.7 [facility] Comment on above: Performed By: #### B MP #### [facility] [address] [place] [address] Dr. Darlene Lucero Eosinophils/100 WBC (Bld) 0.0 % Critically low 0.9-7.0 [facility] Comment on above: Performed By: #### B MP #### [facility] [address] [address] [address] Darlene Lucero Erythrocyte distribution width (RBC) [Ratio] 12.0 % Normal 11.0-15.0 [facility] Comment on above: Performed By: #### B MP #### [facility] [address] [place] [address] Dr. Darlene Lucero Hematocrit (Bld) [Volume fraction] 35.1 % Critically low 36.0-48.0 [facility] Comment on above: Performed By: #### B MP #### [facility] [address] [place] [address] Dr. Darlene Lucero Hemoglobin (Bld) [Mass/Vol] 11.9 g/dL Critically low 12.0-16.0 [facility] Comment on above: Performed By: #### B MP #### [facility] [address] [place] [address] Dr. Darlene Lucero IG # 0.04 10e3/ul Critically high 0.00-0.03 [facility] Comment on above: Performed By: #### B MP #### [facility] [address] [place] [address] Dr. Darlene Lucero IG % 0.4 % Normal 0.0-0.5 [facility] Comment on above: Performed By: #### B MP #### [facility] [address] [place] [address] Dr. Darlene Lucero LYMPH # 1.0 103/ul Critically low 1.2-3.8 [facility] Comment on above: Performed By: #### B MP #### [facility] [address] [place] [address] Dr. Darlene Lucero Lymphocytes/100 WBC (Bld) 10.6 % Critically low 20.5-60.0 [facility] Comment on above: Performed By: #### B MP #### [facility] [address] [place] [address] Dr. Darlene Lucero MANUAL DIFF REQ NO Normal [facility] Comment on above: Performed By: #### B MP #### [facility] [address] [place] [address] Dr. Darlene Lucero MCH (RBC) [Entitic mass] 29.4 pg Normal 26.7-34.0 [facility] Comment on above: Performed By: #### B MP #### [facility] [address] [address] [address] Darlene Lucero MCHC (RBC) [Mass/Vol] 33.9 g/dL Normal 29.9-35.2 [facility] Comment on above: Performed By: #### B MP #### [facility] [address] [address] [address] Darlene Lucero MCV (RBC) [Entitic vol] 86.7 fL Normal 81.0-99.0 [facility] Comment on above: Performed By: #### B MP #### [facility] [address] [place] [address] Dr. Darlene Lucero MONO # 1.1 103/ul Critically high 0.3-0.8 [facility] Comment on above: Performed By: #### B MP #### [facility] [address] [place] [address] Dr. Darlene Lucero Monocytes/100 WBC (Bld) 12.1 % Critically high 1.7-12.0 [facility] Comment on above: Performed By: #### B MP #### [facility] [address] [place] [address] Dr. Darlene Lucero NEUT # 6.9 103/ul Critically high 1.4-6.5 [facility] Comment on above: Performed By: #### B MP #### [facility] [address] [place] [address] Dr. Darlene Lucero Neutrophils/100 WBC (Bld) 76.8 % Critically high 43.0-75.0 [facility] Comment on above: Performed By: #### B MP #### [facility] [address] [place] [address] Dr. Darlene Lucero Platelet mean volume (Bld) [Entitic vol] 8.1 fL Critically low 9.5-13.5 [facility] Comment on above: Performed By: #### B MP #### [facility] [address] [address] [address] Darlene Lucero PLT 498 103/ul Critically high 150-450 [facility] Comment on above: Performed By: #### B MP #### [facility] [address] [address] [address] Darlene Lucero RBC 4.05 106/ul Critically low 4.20-5.40 [facility] Comment on above: Performed By: #### B MP #### [facility] [address] [address] [address] Darlene Lucero WBC 9.0 103/ul Normal 4.0-11.0 [facility] Comment on above: Performed By: #### B MP #### [facility] [address] [address] [address] Darlene Lucero OSMOLALITY URINEon 2 Osmolality, Urine 522 mOsmol/kg Normal [facility] Comment on above: Result Comment: 24 h r : 300 - 900 Random: 50 - 1400 After 12hr fluid restriction: >850 Performed By: #### O SMOU #### [facility] [address] [address] [address] Darlene Lucero POINT OF CARE GLUCOSEon 08-15 Glucose [Mass/Vol] 146 mg/dL Critically high 74-106 [facility] Comment on above: Performed By: #### O SMOU #### [facility] [address] [place] [address] Dr. Darlene Lucero Glucose [Mass/Vol] 151 mg/dL Critically high 74-106 [facility] Comment on above: Performed By: #### B MP #### [facility] [address] [place] [address] Dr. Darlene Lucero Glucose [Mass/Vol] 123 mg/dL Critically high -106 [facility] Comment on above: Performed By: #### B MP #### [facility] [address] [place] [address] Dr. Darlene Lucero Glucose [Mass/Vol] 153 mg/dL Critically high 74-106 [facility] Comment on above: Performed By: #### B MP #### [facility] [address] [address] [address] Darlene Lucero PROF CHEM 8 (BAS METB)on Anion gap [Moles/Vol] 10.1 mmol/L Normal [facility] Comment on above: Performed By: #### B MP #### [facility] [address] [address] [address] Darlene Lucero Calcium [Mass/Vol] 8.4 mg/dL Critically low 8.5-10.1 [facility] Comment on above: Performed By: #### B MP #### [facility] [address] [address] [address] Darlene Lucero Chloride [Moles/Vol] 90 mmol/L Critically low 98-107 [facility] Comment on above: Performed By: #### B MP #### [facility] [address] [place] [address] Dr. Darlene Lucero CO2 [Moles/Vol] 27.4 mmol/L Normal 21.0-32.0 [facility] Comment on above: Performed By: #### B MP #### [facility] [address] [place] [address] Dr. Darlene Lucero Creatinine [Mass/Vol] 0.82 mg/dL Normal 0.55-1.02 [facility] Comment on above: Performed By: #### B MP #### [facility] [address] [place] [address] Dr. Darlene Lucero EGFR-AF EQUATORIAL GUINEAN >60 Normal >=60 [facility] Comment on above: Performed By: #### B MP #### [facility] [address] [place] [address] Dr. Darlene Lucero EGFR-NON AF EQUATORIAL GUINEAN >60 Normal >=60 [facility] Comment on above: Performed By: #### B MP #### [facility] [address] [place] [address] Dr. Darlene Lucero Glucose [Mass/Vol] 120 mg/dL Critically high 74-106 [facility] Comment on above: Performed By: #### B MP #### [facility] [address] [address] [address] Darlene Lucero Potassium [Moles/Vol] 3.5 mmol/L Normal 3.5-5.1 [facility] Comment on above: Performed By: #### B MP #### [facility] [address] [place] [address] Dr. Darlene Lucero Sodium [Moles/Vol] 124 mmol/L Critically low 136-145 [facility] Comment on above: Result Comment: repe ated Performed By: #### B MP #### [facility] [address] [place] [address] Dr. Darlene Lucero Urea nitrogen [Mass/Vol] 20.0 mg/dL Critically high 7.0-18.0 [facility] Comment on above: Performed By: #### B MP #### [facility] [address] [place] [address] Dr. Darlene Lucero Urea nitrogen/Creatinine [Mass ratio] 24.4 mg/mg Normal [facility] Comment on above: Performed By: #### B MP #### [facility] [address] [place] [address] Dr. Darlene Lucero Anion gap [Moles/Vol] 11.7 mmol/L Normal [facility] Comment on above: Performed By: #### O SMOU #### [facility] [address] [place] [address] Dr. Darlene Lucero Calcium [Mass/Vol] 8.5 mg/dL Normal 8.5-10.1 [facility] Comment on above: Performed By: #### O SMOU #### [facility] [address] [place] [address] Dr. Darlene Lucero Chloride [Moles/Vol] 89 mmol/L Critically low 98-107 [facility] Comment on above: Performed By: #### O SMOU #### [facility] [address] [place] [address] Dr. Darlene Lucero CO2 [Moles/Vol] 25.2 mmol/L Normal 21.0-32.0 [facility] Comment on above: Performed By: #### O SMOU #### [facility] [address] [place] [address] Dr. Darlene Lucero Creatinine [Mass/Vol] 0.76 mg/dL Normal 0.55-1.02 [facility] Comment on above: Performed By: #### O SMOU #### [facility] [address] [place] [address] Dr. Darlene Lucero EGFR-AF EQUATORIAL GUINEAN >60 Normal >=60 [facility] Comment on above: Performed By: #### O SMOU #### [facility] [address] [place] [address] Dr. Darlene Lucero EGFR-NON AF EQUATORIAL GUINEAN >60 Normal >=60 [facility] Comment on above: Performed By: #### O SMOU #### [facility] [address] [place] [address] Dr. Darlene Lucero Glucose [Mass/Vol] 140 mg/dL Critically high 74-106 [facility] Comment on above: Performed By: #### O SMOU #### [facility] [address] [place] [address] Dr. Darlene Lucero Potassium [Moles/Vol] 3.9 mmol/L Normal 3.5-5.1 [facility] Comment on above: Performed By: #### O SMOU #### [facility] [address] [place] [address] Dr. Darlene Lucero Sodium [Moles/Vol] 122 mmol/L Critically low 136-145 [facility] Comment on above: Performed By: #### O SMOU #### [facility] [address] [place] [address] Dr. Darlene Lucero Urea nitrogen [Mass/Vol] 16.0 mg/dL Normal 7.0-18.0 [facility] Comment on above: Performed By: #### O SMOU #### [facility] [address] [place] [address] Dr. Darlene Lucero Urea nitrogen/Creatinine [Mass ratio] 21.1 mg/mg Normal [facility] Comment on above: Performed By: #### O SMOU #### [facility] [address] [place] [address] Dr. Darlene Lucero Anion gap [Moles/Vol] 9.2 mmol/L Normal [facility] Comment on above: Performed By: #### O SMOU #### [facility] [address] [place] [address] Dr. Darlene Lucero Calcium [Mass/Vol] 8.3 mg/dL Critically low 8.5-10.1 [facility] Comment on above: Performed By: #### O SMOU #### [facility] [address] [place] [address] Dr. Darlene Lucero Chloride [Moles/Vol] 88 mmol/L Critically low 98-107 [facility] Comment on above: Performed By: #### O SMOU #### [facility] [address] [place] [address] Dr. Darlene Lucero CO2 [Moles/Vol] 27.8 mmol/L Normal 21.0-32.0 [facility] Comment on above: Performed By: #### O SMOU #### [facility] [address] [place] [address] Dr. Darlene Lucero Creatinine [Mass/Vol] 0.78 mg/dL Normal 0.55-1.02 [facility] Comment on above: Performed By: #### O SMOU #### [facility] [address] [place] [address] Dr. Darlene Lucero EGFR-AF EQUATORIAL GUINEAN >60 Normal >=60 [facility] Comment on above: Performed By: #### O SMOU #### [facility] [address] [place] [address] Dr. Darlene Lucero EGFR-NON AF EQUATORIAL GUINEAN >60 Normal >=60 [facility] Comment on above: Performed By: #### O SMOU #### [facility] [address] [place] [address] Dr. Darlene Lucero Glucose [Mass/Vol] 148 mg/dL Critically high 74-106 [facility] Comment on above: Performed By: #### O SMOU #### [facility] [address] [place] [address] Dr. Darlene Lucero Potassium [Moles/Vol] 4.0 mmol/L Normal 3.5-5.1 [facility] Comment on above: Performed By: #### O SMOU #### [facility] [address] [address] [address] Darlene Lucero Sodium [Moles/Vol] 122 mmol/L Critically low 136-145 [facility] Comment on above: Performed By: #### O SMOU #### [facility] [address] [address] [address] Darlene Lucero Urea nitrogen [Mass/Vol] 15.0 mg/dL Normal 7.0-18.0 [facility] Comment on above: Performed By: #### O SMOU #### [facility] [address] [address] [address] Darlene Lucero Urea nitrogen/Creatinine [Mass ratio] 19.2 mg/mg Normal [facility] Comment on above: Performed By: #### O SMOU #### [facility] [address] [address] [address] Darlene Lucero Anion gap [Moles/Vol] 9.1 mmol/L Normal [facility] Comment on above: Performed By: #### B MP #### [facility] [address] [address] [address] Darlene Lucero Calcium [Mass/Vol] 8.3 mg/dL Critically low 8.5-10.1 [facility] Comment on above: Performed By: #### B MP #### [facility] [address] [address] [address] Darlene Lucero Chloride [Moles/Vol] 86 mmol/L Critically low 98-107 [facility] Comment on above: Performed By: #### B MP #### [facility] [address] [address] [address] Darlene Lucero CO2 [Moles/Vol] 27.9 mmol/L Normal 21.0-32.0 [facility] Comment on above: Performed By: #### B MP #### [facility] [address] [place] [address] Dr. Darlene Lucero Creatinine [Mass/Vol] 0.78 mg/dL Normal 0.55-1.02 [facility] Comment on above: Performed By: #### B MP #### [facility] [address] [address] [address] Darlene Lucero EGFR-AF EQUATORIAL GUINEAN >60 Normal >=60 [facility] Comment on above: Performed By: #### B MP #### [facility] [address] [address] [address] Darlene Lucero EGFR-NON AF EQUATORIAL GUINEAN >60 Normal >=60 [facility] Comment on above: Performed By: #### B MP #### [facility] [address] [address] [address] Darlene Lucero Glucose [Mass/Vol] 106 mg/dL Normal 74-106 [facility] Comment on above: Performed By: #### B MP #### [facility] [address] [address] [address] Darlene Lucero Potassium [Moles/Vol] 4.0 mmol/L Normal 3.5-5.1 [facility] Comment on above: Performed By: #### B MP #### [facility] [address] [address] [address] Darlene Lucero Sodium [Moles/Vol] 119 mmol/L Critically low 136-145 [facility] Comment on above: Performed By: #### B MP #### [facility] [address] [address] [address] Darlene Lucero Urea nitrogen [Mass/Vol] 14.0 mg/dL Normal 7.0-18.0 [facility] Comment on above: Performed By: #### B MP #### [facility] [address] [address] [address] Darlene Lucero Urea nitrogen/Creatinine [Mass ratio] 17.9 mg/mg Normal [facility] Comment on above: Performed By: #### B MP #### [facility] [address] [address] [address] Darlene Lucero Anion gap [Moles/Vol] 11.7 mmol/L Normal [facility] Comment on above: Performed By: #### B MP #### [facility] [address] [address] [address] Darlene Lucero Calcium [Mass/Vol] 8.5 mg/dL Normal 8.5-10.1 [facility] Comment on above: Performed By: #### B MP #### [facility] [address] [address] [address] Darlene Lucero Chloride [Moles/Vol] 85 mmol/L Critically low 98-107 [facility] Comment on above: Performed By: #### B MP #### [facility] [address] [address] [address] Darlene Lucero CO2 [Moles/Vol] 25.9 mmol/L Normal 21.0-32.0 [facility] Comment on above: Performed By: #### B MP #### [facility] [address] [place] [address] Dr. Darlene Lucero Creatinine [Mass/Vol] 0.85 mg/dL Normal 0.55-1.02 [facility] Comment on above: Performed By: #### B MP #### [facility] [address] [place] [address] Dr. Darlene Lucero EGFR-AF EQUATORIAL GUINEAN >60 Normal >=60 [facility] Comment on above: Performed By: #### B MP #### [facility] [address] [address] [address] Darlene Lucero EGFR-NON AF EQUATORIAL GUINEAN >60 Normal >=60 [facility] Comment on above: Performed By: #### B MP #### [facility] [address] [address] [address] Darlene Lucero Glucose [Mass/Vol] 105 mg/dL Normal 74-106 [facility] Comment on above: Performed By: #### B MP #### [facility] [address] [address] [address] Darlene Lucero Potassium [Moles/Vol] 3.6 mmol/L Normal 3.5-5.1 [facility] Comment on above: Performed By: #### B MP #### [facility] [address] [address] [address] Darlene Lucero Sodium [Moles/Vol] 119 mmol/L Critically low 136-145 [facility] Comment on above: Result Comment: repe ated Performed By: #### B MP #### [facility] [address] [place] [address] Dr. Darlene Lucero Urea nitrogen [Mass/Vol] 13.0 mg/dL Normal 7.0-18.0 [facility] Comment on above: Performed By: #### B MP #### [facility] [address] [address] [address] Darlene Lucero Urea nitrogen/Creatinine [Mass ratio] 15.3 mg/mg Normal [facility] Comment on above: Performed By: #### B MP #### [facility] [address] [address] [address] Darlene Lucero Anion gap [Moles/Vol] 11.3 mmol/L Normal [facility] Comment on above: Performed By: #### B MP #### [facility] [address] [place] [address] Dr. Darlene Lucero Calcium [Mass/Vol] 8.2 mg/dL Critically low 8.5-10.1 [facility] Comment on above: Performed By: #### B MP #### [facility] [address] [place] [address] Dr. Darlene Lucero Chloride [Moles/Vol] 85 mmol/L Critically low 98-107 [facility] Comment on above: Performed By: #### B MP #### [facility] [address] [address] [address] Darlene Lucero CO2 [Moles/Vol] 27.2 mmol/L Normal 21.0-32.0 [facility] Comment on above: Performed By: #### B MP #### [facility] [address] [place] [address] Dr. Darlene Lucero Creatinine [Mass/Vol] 0.89 mg/dL Normal 0.55-1.02 [facility] Comment on above: Performed By: #### B MP #### [facility] [address] [address] [address] Darlene Lucero EGFR-AF EQUATORIAL GUINEAN >60 Normal >=60 [facility] Comment on above: Performed By: #### B MP #### [facility] [address] [address] [address] Darlene Lucero EGFR-NON AF EQUATORIAL GUINEAN >60 Normal >=60 [facility] Comment on above: Performed By: #### B MP #### [facility] [address] [address] [address] Darlene Lucero Glucose [Mass/Vol] 105 mg/dL Normal 74-106 [facility] Comment on above: Performed By: #### B MP #### [facility] [address] [address] [address] Darlene Lucero Potassium [Moles/Vol] 3.5 mmol/L Normal 3.5-5.1 [facility] Comment on above: Performed By: #### B MP #### [facility] [address] [address] [address] Darlene Lucero Sodium [Moles/Vol] 120 mmol/L Critically low 136-145 [facility] Comment on above: Result Comment: repe ated Performed By: #### B MP #### [facility] [address] [place] [address] Dr. Darlene Lucero Urea nitrogen [Mass/Vol] 12.0 mg/dL Normal 7.0-18.0 [facility] Comment on above: Performed By: #### B MP #### [facility] [address] [address] [address] Darlene Lucero Urea nitrogen/Creatinine [Mass ratio] 13.5 mg/mg Normal [facility] Comment on above: Performed By: #### B MP #### [facility] [address] [address] [address] Darlene Lucero CBC AUTO DIFFon 09-01-2021 BASO # 0.0 103/ul Normal 0.0-0.1 [facility] Comment on above: Performed By: #### U WILLEM #### [facility] [address] [address] [address] Darlene Lucero Basophils/100 WBC (Bld) 0.1 % Critically low 0.2-2.0 [facility] Comment on above: Performed By: #### U WILLEM #### [facility] [address] [address] [address] Darlene Lucero EO # 0.0 103/ul Normal 0.0-0.7 [facility] Comment on above: Performed By: #### U WILLEM #### [facility] [address] [address] [address] Darlene Lucero Eosinophils/100 WBC (Bld) 0.0 % Critically low 0.9-7.0 [facility] Comment on above: Performed By: #### U WILLEM #### [facility] [address] [address] [address] Darlene Lucero Erythrocyte distribution width (RBC) [Ratio] 11.9 % Normal 11.0-15.0 [facility] Comment on above: Performed By: #### U WILLEM #### [facility] [address] [place] [address] Dr. Darlene Lucero Hematocrit (Bld) [Volume fraction] 36.0 % Normal 36.0-48.0 [facility] Comment on above: Performed By: #### U WILLEM #### [facility] [address] [address] [address] Darlene Lucero Hemoglobin (Bld) [Mass/Vol] 12.2 g/dL Normal 12.0-16.0 [facility] Comment on above: Performed By: #### U WILLEM #### [facility] [address] [address] [address] Darlene Lucero IG # 0.07 10e3/ul Critically high 0.00-0.03 [facility] Comment on above: Performed By: #### U WILLEM #### [facility] [address] [address] [address] Darlene Lucero IG % 0.6 % Critically high 0.0-0.5 [facility] Comment on above: Performed By: #### U WILLEM #### [facility] [address] [address] [address] Darlene Lucero LYMPH # 1.1 103/ul Critically low 1.2-3.8 [facility] Comment on above: Performed By: #### U WILLEM #### [facility] [address] [address] [address] Darlene Lucero Lymphocytes/100 WBC (Bld) 9.2 % Critically low 20.5-60.0 [facility] Comment on above: Performed By: #### U WILLEM #### [facility] [address] [place] [address] Dr. Darlene Lucero MANUAL DIFF REQ NO Normal [facility] Comment on above: Performed By: #### U WILLEM #### [facility] [address] [place] [address] Dr. Darlene Lucero MCH (RBC) [Entitic mass] 29.5 pg Normal 26.7-34.0 [facility] Comment on above: Performed By: #### U WILLEM #### [facility] [address] [place] [address] Dr. Darlene Lucero MCHC (RBC) [Mass/Vol] 33.9 g/dL Normal 29.9-35.2 [facility] Comment on above: Performed By: #### U WILLEM #### [facility] [address] [place] [address] Dr. Darlene Lucero MCV (RBC) [Entitic vol] 87.0 fL Normal 81.0-99.0 [facility] Comment on above: Performed By: #### U WILLEM #### [facility] [address] [place] [address] Dr. Darlene Lucero MONO # 1.4 103/ul Critically high 0.3-0.8 [facility] Comment on above: Performed By: #### U WILLEM #### [facility] [address] [place] [address] Dr. Darlene Lucero Monocytes/100 WBC (Bld) 11.6 % Normal 1.7-12.0 [facility] Comment on above: Performed By: #### U WILLEM #### [facility] [address] [place] [address] Dr. Darlene Lucero NEUT # 9.1 103/ul Critically high 1.4-6.5 [facility] Comment on above: Performed By: #### U WILLEM #### [facility] [address] [address] [address] Darlene Lucero Neutrophils/100 WBC (Bld) 78.5 % Critically high 43.0-75.0 [facility] Comment on above: Performed By: #### U WILLEM #### [facility] [address] [address] [address] Darlene Lucero Platelet mean volume (Bld) [Entitic vol] 7.9 fL Critically low 9.5-13.5 [facility] Comment on above: Performed By: #### U WILLEM #### [facility] [address] [address] [address] Darlene Lucero PLT 447 103/ul Normal 150-450 [facility] Comment on above: Performed By: #### U WILLEM #### [facility] [address] [place] [address] Dr. Darlene Lucero RBC 4.14 106/ul Critically low 4.20-5.40 [facility] Comment on above: Performed By: #### U WILLEM #### [facility] [address] [address] [address] Darlene Lucero WBC 11.6 103/ul Critically high 4.0-11.0 [facility] Comment on above: Performed By: #### U WILLEM #### [facility] [address] [place] [address] Dr. Darlene Lucero Covid-19 PCR (CVDTB)on 08-14 SARS-CoV-2 (COVID-19) RNA TASHA+probe Ql (Unsp spec) Detected Critically abnormal NOT DETECTED [facility] Comment on above: Result Comment: This test is not yet approved or cleared by the [place] FDA. When there are no FDA-approved or cleared tests available, and other criteria are met, FDA can make tests available under an emergency access mechanism called an Emergency Use Authorization (EUA). The EUA for this test is supported by the Executive Vice President of Health and Human Service's (HHS's) declaration that circumstances exist to justify the emergency use of in vitro diagnostics for the detection and/or diagnosis of the virus that causes COVID-19. This EUA will remain in effect (meaning this test can be used) for the duration of the COVID-19 declaration justifying emergency of IVDs, unless it is terminated or revoked by FDA (after which the test may no longer be used). Performed By: #### U WILLEM #### [facility] [address] [address] [address] Darlene Lucero PROF CHEM 8 (BAS METB)on Anion gap [Moles/Vol] 13.1 mmol/L Normal [facility] Comment on above: Performed By: #### B MP #### [facility] [address] [place] [address] Dr. Darlene Lucero Calcium [Mass/Vol] 8.4 mg/dL Critically low 8.5-10.1 [facility] Comment on above: Performed By: #### B MP #### [facility] [address] [place] [address] Dr. Darlene Lucero Chloride [Moles/Vol] 88 mmol/L Critically low 98-107 [facility] Comment on above: Performed By: #### B MP #### [facility] [address] [place] [address] Dr. Darlene Lucero CO2 [Moles/Vol] 24.0 mmol/L Normal 21.0-32.0 [facility] Comment on above: Performed By: #### B MP #### [facility] [address] [place] [address] Dr. Darlene Lucero Creatinine [Mass/Vol] 0.60 mg/dL Normal 0.55-1.02 [facility] Comment on above: Performed By: #### B MP #### [facility] [address] [place] [address] Dr. Darlene Lucero EGFR-AF EQUATORIAL GUINEAN >60 Normal >=60 [facility] Comment on above: Performed By: #### B MP #### [facility] [address] [place] [address] Dr. Darlene Lucero EGFR-NON AF EQUATORIAL GUINEAN >60 Normal >=60 [facility] Comment on above: Performed By: #### B MP #### [facility] [address] [address] [address] Darlene Lucero Glucose [Mass/Vol] 131 mg/dL Critically high 74-106 [facility] Comment on above: Performed By: #### B MP #### [facility] [address] [address] [address] Darlene Lucero Potassium [Moles/Vol] 4.2 mmol/L Normal 3.5-5.1 [facility] Comment on above: Performed By: #### B MP #### [facility] [address] [place] [address] Dr. Darlene Lucero Sodium [Moles/Vol] 121 mmol/L Critically low 136-145 [facility] Comment on above: Result Comment: repe ated Performed By: #### B MP #### [facility] [address] [place] [address] Dr. Darlene Lucero Urea nitrogen [Mass/Vol] 11.0 mg/dL Normal 7.0-18.0 [facility] Comment on above: Performed By: #### B MP #### [facility] [address] [place] [address] Dr. Darlene Lucero Urea nitrogen/Creatinine [Mass ratio] 18.3 mg/mg Normal [facility] Comment on above: Performed By: #### B MP #### [facility] [address] [place] [address] Dr. Darlene Lucero Anion gap [Moles/Vol] 10.4 mmol/L Normal [facility] Comment on above: Performed By: #### U WILLEM #### [facility] [address] [place] [address] Dr. Darlene Lucero Calcium [Mass/Vol] 8.1 mg/dL Critically low 8.5-10.1 [facility] Comment on above: Performed By: #### U WILLEM #### [facility] [address] [place] [address] Dr. Darlene Lucero Chloride [Moles/Vol] 85 mmol/L Critically low 98-107 [facility] Comment on above: Performed By: #### U WILLEM #### [facility] [address] [place] [address] Dr. Darlene Lucero CO2 [Moles/Vol] 25.9 mmol/L Normal 21.0-32.0 [facility] Comment on above: Performed By: #### U WILLEM #### [facility] [address] [address] [address] Darlene Lucero Creatinine [Mass/Vol] 0.57 mg/dL Normal 0.55-1.02 [facility] Comment on above: Performed By: #### U WILLEM #### [facility] [address] [address] [address] Darlene Lucero EGFR-AF EQUATORIAL GUINEAN >60 Normal >=60 [facility] Comment on above: Performed By: #### U WILLEM #### [facility] [address] [place] [address] Dr. Darlene Lucero EGFR-NON AF EQUATORIAL GUINEAN >60 Normal >=60 [facility] Comment on above: Performed By: #### U WILLEM #### [facility] [address] [place] [address] Dr. Darlene Lucero Glucose [Mass/Vol] 139 mg/dL Critically high 74-106 [facility] Comment on above: Performed By: #### U WILLEM #### [facility] [address] [place] [address] Dr. Darlene Lucero Potassium [Moles/Vol] 4.3 mmol/L Normal 3.5-5.1 [facility] Comment on above: Result Comment: SPEC IMEN SLIGHTLY HEMOLYZED MAY AFFECT K+ Performed By: #### U WILLEM #### [facility] [address] [place] [address] Dr. Darlene Lucero Sodium [Moles/Vol] 117 mmol/L Critically low 136-145 [facility] Comment on above: Result Comment: TEST REPEATED CRITICAL VALUE VERIFIED Performed By: #### U WILLEM #### [facility] [address] [place] [address] Dr. Darlene Lucero Urea nitrogen [Mass/Vol] 9.0 mg/dL Normal 7.0-18.0 [facility] Comment on above: Performed By: #### U WILLEM #### [facility] [address] [place] [address] Dr. Darlene Lucero Urea nitrogen/Creatinine [Mass ratio] 15.8 mg/mg Normal [facility] Comment on above: Performed By: #### U WILLEM #### [facility] [address] [place] [address] Dr. Darlene Lucero Anion gap [Moles/Vol] 12.9 mmol/L Normal [facility] Comment on above: Performed By: #### O SMOU #### [facility] [address] [place] [address] Dr. Darlene Lucero Calcium [Mass/Vol] 8.3 mg/dL Critically low 8.5-10.1 [facility] Comment on above: Performed By: #### O SMOU #### [facility] [address] [place] [address] Dr. Darlene Lucero Chloride [Moles/Vol] 84 mmol/L Critically low 98-107 [facility] Comment on above: Result Comment: test repeated critical value verified Performed By: #### O SMOU #### [facility] [address] [place] [address] Dr. Darlene Lucero CO2 [Moles/Vol] 25.1 mmol/L Normal 21.0-32.0 [facility] Comment on above: Performed By: #### O SMOU #### [facility] [address] [place] [address] Dr. Darlene Lucero Creatinine [Mass/Vol] 0.56 mg/dL Normal 0.55-1.02 [facility] Comment on above: Performed By: #### O SMOU #### [facility] [address] [place] [address] Dr. Darlene Lucero EGFR-AF EQUATORIAL GUINEAN >60 Normal >=60 [facility] Comment on above: Performed By: #### O SMOU #### [facility] [address] [place] [address] Dr. Darlene Lucero EGFR-NON AF EQUATORIAL GUINEAN >60 Normal >=60 [facility] Comment on above: Performed By: #### O SMOU #### [facility] [address] [place] [address] Dr. Darlene Lucero Potassium [Moles/Vol] 3.9 mmol/L Normal 3.5-5.1 [facility] Comment on above: Performed By: #### O SMOU #### [facility] [address] [place] [address] Dr. Darlene Lucero Sodium [Moles/Vol] 116 mmol/L Critically low 136-145 [facility] Comment on above: Result Comment: test repeated critical value verified Performed By: #### O SMOU #### [facility] [address] [address] [address] Darlene Lucero Urea nitrogen [Mass/Vol] 10.0 mg/dL Normal 7.0-18.0 [facility] Comment on above: Performed By: #### O SMOU #### [facility] [address] [place] [address] Dr. Darlene Lucero Urea nitrogen/Creatinine [Mass ratio] 17.9 mg/mg Normal [facility] Comment on above: Performed By: #### O SMOU #### [facility] [address] [place] [address] Dr. Darlene Lucero Anion gap [Moles/Vol] 11.9 mmol/L Normal [facility] Comment on above: Performed By: #### U WILLEM #### [facility] [address] [place] [address] Dr. Darlene Lucero Calcium [Mass/Vol] 8.4 mg/dL Critically low 8.5-10.1 [facility] Comment on above: Performed By: #### U WILLEM #### [facility] [address] [place] [address] Dr. Darlene Lucero Chloride [Moles/Vol] 81 mmol/L Critically low 98-107 [facility] Comment on above: Result Comment: TEST REPEATED CRITICAL VALUE VERIFIED Performed By: #### U WILLEM #### [facility] [address] [place] [address] Dr. Darlene Lucero CO2 [Moles/Vol] 27.8 mmol/L Normal 21.0-32.0 [facility] Comment on above: Performed By: #### U WILLEM #### [facility] [address] [place] [address] Dr. Darlene Lucero Creatinine [Mass/Vol] 0.60 mg/dL Normal 0.55-1.02 [facility] Comment on above: Performed By: #### U WILLEM #### [facility] [address] [place] [address] Dr. Darlene Lucero EGFR-AF EQUATORIAL GUINEAN >60 Normal >=60 [facility] Comment on above: Performed By: #### U WILLEM #### [facility] [address] [address] [address] Darlene Lucero EGFR-NON AF EQUATORIAL GUINEAN >60 Normal >=60 [facility] Comment on above: Performed By: #### U WILLEM #### [facility] [address] [address] [address] Darlene Lucero Glucose [Mass/Vol] 131 mg/dL Critically high 74-106 T [facility] Comment on above: Performed By: #### U WILLEM #### [facility] [address] [address] [address] Darlene Lucero Potassium [Moles/Vol] 3.7 mmol/L Normal 3.5-5.1 [facility] Comment on above: Performed By: #### U WILLEM #### [facility] [address] [address] [address] Darlene Lucero Sodium [Moles/Vol] 117 mmol/L Critically low 136-145 [facility] Comment on above: Result Comment: TEST REPEATED CRITICAL VALUE VERIFIED Performed By: #### U WILLEM #### [facility] [address] [address] [address] Darlene Lucero Urea nitrogen [Mass/Vol] 9.0 mg/dL Normal 7.0-18.0 [facility] Comment on above: Performed By: #### U WILLEM #### [facility] [address] [place] [address] Dr. Darlene Lucero Urea nitrogen/Creatinine [Mass ratio] 15.0 mg/mg Normal [facility] Comment on above: Performed By: #### U WILLEM #### [facility] [address] [address] [address] Darlene Lucero Anion gap [Moles/Vol] 10.9 mmol/L Normal [facility] Comment on above: Performed By: #### B MP #### [facility] [address] [place] [address] Dr. Darlene Lucero Calcium [Mass/Vol] 8.3 mg/dL Critically low 8.5-10.1 [facility] Comment on above: Performed By: #### B MP #### [facility] [address] [place] [address] Dr. Darlene Lucero Chloride [Moles/Vol] 87 mmol/L Critically low 98-107 [facility] Comment on above: Performed By: #### B MP #### [facility] [address] [place] [address] Dr. Darlene Lucero CO2 [Moles/Vol] 25.7 mmol/L Normal 21.0-32.0 [facility] Comment on above: Performed By: #### B MP #### [facility] [address] [place] [address] Dr. Darlene Lucero Creatinine [Mass/Vol] 0.69 mg/dL Normal 0.55-1.02 [facility] Comment on above: Performed By: #### B MP #### [facility] [address] [place] [id number] Dr. Darlene Luceor EGFR-AF EQUATORIAL GUINEAN >60 Normal >=60 [facility] Comment on above: Performed By: #### B MP #### [facility] [address] [place] [address] Dr. Darlene Lucero EGFR-NON AF EQUATORIAL GUINEAN >60 Normal >=60 [facility] Comment on above: Performed By: #### B MP #### [facility] [address] [place] [address] Dr. Darlene Lucero Glucose [Mass/Vol] 139 mg/dL Critically high 74-106 [facility] Comment on above: Performed By: #### B MP #### [facility] [address] [place] [address] Dr. Darlene Lucero Potassium [Moles/Vol] 3.7 mmol/L Normal 3.5-5.1 [facility] Comment on above: Performed By: #### B MP #### [facility] [address] [address] [address] Darlene Lucero Sodium [Moles/Vol] 121 mmol/L Critically low 136-145 [facility] Comment on above: Result Comment: Test Repeated. Critical Value Verified Performed By: #### B MP #### [facility] [address] [address] [address] Darlene Lucero Urea nitrogen [Mass/Vol] 9.0 mg/dL Normal 7.0-18.0 [facility] Comment on above: Performed By: #### B MP #### [facility] [address] [address] [address] Darlene Lucero Urea nitrogen/Creatinine [Mass ratio] 13.0 mg/mg Normal [facility] Comment on above: Performed By: #### B MP #### [facility] [address] [address] [address] Darlene Lucero Anion gap [Moles/Vol] 12.7 mmol/L Normal [facility] Comment on above: Performed By: #### O SMOU #### [facility] [address] [address] [address] Darlene Lucero Calcium [Mass/Vol] 8.0 mg/dL Critically low 8.5-10.1 [facility] Comment on above: Performed By: #### O SMOU #### [facility] [address] [address] [address] Darlene Lucero Chloride [Moles/Vol] 87 mmol/L Critically low 98-107 [facility] Comment on above: Performed By: #### O SMOU #### [facility] [address] [address] [address] Darlene Lucero CO2 [Moles/Vol] 24.0 mmol/L Normal 21.0-32.0 [facility] Comment on above: Performed By: #### O SMOU #### [facility] [address] [address] [address] Darlene Lucero Creatinine [Mass/Vol] 0.52 mg/dL Critically low 0.55-1.02 [facility] Comment on above: Performed By: #### O SMOU #### [facility] [address] [address] [address] Darlene Lucero EGFR-AF EQUATORIAL GUINEAN >60 Normal >=60 [facility] Comment on above: Performed By: #### O SMOU #### [facility] [address] [address] [address] Darlene Lucero EGFR-NON AF EQUATORIAL GUINEAN >60 Normal >=60 [facility] Comment on above: Performed By: #### O SMOU #### [facility] [address] [address] [address] Darlene Lucero Glucose [Mass/Vol] 158 mg/dL Critically high 74-106 [facility] Comment on above: Performed By: #### O SMOU #### [facility] [address] [place] [address] Dr. Darlene Lucero Potassium [Moles/Vol] 3.7 mmol/L Normal 3.5-5.1 [facility] Comment on above: Performed By: #### O SMOU #### [facility] [address] [place] [address] Dr. Darlene Lucero Sodium [Moles/Vol] 120 mmol/L Critically low 136-145 [facility] Comment on above: Result Comment: Test Repeated. Critical Value Verified Performed By: #### O SMOU #### [facility] [address] [place] [address] Dr. Darlene Lucero Urea nitrogen [Mass/Vol] 9.0 mg/dL Normal 7.0-18.0 [facility] Comment on above: Performed By: #### O SMOU #### [facility] [address] [place] [address] Dr. Darlene Lucero Urea nitrogen/Creatinine [Mass ratio] 17.3 mg/mg Normal [facility] Comment on above: Performed By: #### O SMOU #### [facility] [address] [place] [address] Dr. Darlene Lucero BNPon 08-31-2021 Natriuretic peptide B (Bld) [Mass/Vol] 898.0 pg/mL Normal <=900.0 [facility] Comment on above: Performed By: #### B MP #### [facility] [address] [address] [address] Darlene Lucero CBC AUTO DIFFon 08-31-2021 BASO # 0.0 103/ul Normal 0.0-0.1 [facility] Comment on above: Performed By: #### B MP #### [facility] [address] [place] [address] Dr. Darlene Lucero Basophils/100 WBC (Bld) 0.0 % Critically low 0.2-2.0 [facility] Comment on above: Performed By: #### B MP #### [facility] [address] [place] [address] Dr. Darlene Lucero EO # 0.0 103/ul Normal 0.0-0.7 [facility] Comment on above: Performed By: #### B MP #### [facility] [address] [place] [address] Dr. Darlene Lucero Eosinophils/100 WBC (Bld) 0.0 % Critically low 0.9-7.0 [facility] Comment on above: Performed By: #### B MP #### [facility] [address] [place] [address] Dr. Darlene Lucero Erythrocyte distribution width (RBC) [Ratio] 12.0 % Normal 11.0-15.0 [facility] Comment on above: Performed By: #### B MP #### [facility] [address] [place] [address] Dr. Darlene Lucero Hematocrit (Bld) [Volume fraction] 35.7 % Critically low 36.0-48.0 [facility] Comment on above: Performed By: #### B MP #### [facility] [address] [place] [address] Dr. Darlene Lucero Hemoglobin (Bld) [Mass/Vol] 12.5 g/dL Normal 12.0-16.0 [facility] Comment on above: Performed By: #### B MP #### [facility] [address] [place] [address] Dr. Darlene Lucero IG # 0.03 10e3/ul Normal 0.00-0.03 [facility] Comment on above: Performed By: #### B MP #### [facility] [address] [place] [address] Dr. Darlene Lucero IG % 0.4 % Normal 0.0-0.5 [facility] Comment on above: Performed By: #### B MP #### [facility] [address] [place] [address] Dr. Darlene Lucero LYMPH # 1.5 103/ul Normal 1.2-3.8 [facility] Comment on above: Performed By: #### B MP #### [facility] [address] [place] [address] Dr. Darlene Lucero Lymphocytes/100 WBC (Bld) 22.3 % Normal 20.5-60.0 [facility] Comment on above: Performed By: #### B MP #### [facility] [address] [place] [address] Dr. Darlene Lucero MANUAL DIFF REQ NO Normal [facility] Comment on above: Performed By: #### B MP #### [facility] [address] [place] [address] Dr. Darlene Lucero MCH (RBC) [Entitic mass] 29.6 pg Normal 26.7-34.0 [facility] Comment on above: Performed By: #### B MP #### [facility] [address] [place] [address] Dr. Darlene Lucero MCHC (RBC) [Mass/Vol] 35.0 g/dL Normal 29.9-35.2 [facility] Comment on above: Performed By: #### B MP #### [facility] [address] [place] [address] Dr. Darlene Lucero MCV (RBC) [Entitic vol] 84.6 fL Normal 81.0-99.0 [facility] Comment on above: Performed By: #### B MP #### [facility] [address] [place] [address] Dr. Darlene Lucero MONO # 0.8 103/ul Normal 0.3-0.8 [facility] Comment on above: Performed By: #### B MP #### [facility] [address] [address] [address] Darlene Lucero Monocytes/100 WBC (Bld) 11.5 % Normal 1.7-12.0 [facility] Comment on above: Performed By: #### B MP #### [facility] [address] [address] [address] Darlene Lucero NEUT # 4.5 103/ul Normal 1.4-6.5 [facility] Comment on above: Performed By: #### B MP #### [facility] [address] [address] [address] Darlene Lucero Neutrophils/100 WBC (Bld) 65.8 % Normal 43.0-75.0 [facility] Comment on above: Performed By: #### B MP #### [facility] [address] [place] [address] Dr. Darlene Lucero Platelet mean volume (Bld) [Entitic vol] 7.9 fL Critically low 9.5-13.5 [facility] Comment on above: Performed By: #### B MP #### [facility] [address] [address] [address] Darlene Lucero PLT 457 103/ul Critically high 150-450 [facility] Comment on above: Performed By: #### B MP #### [facility] [address] [address] [address] Darlene Lucero RBC 4.22 106/ul Normal 4.20-5.40 [facility] Comment on above: Performed By: #### B MP #### [facility] [address] [address] [address] Darlene Lucero WBC 6.9 103/ul Normal 4.0-11.0 [facility] Comment on above: Performed By: #### B MP #### [facility] [address] [place] [address] Dr. Darlene Lucero CREATININE URINEon 2 URINE CREAT 91.14 mg/dL Normal 20.00-300.00 [facility] Comment on above: Performed By: #### C DAPHNE CALDERA #### [facility] [address] [place] [address] Dr. Darlene SEGUNDO URINE PROFILEon 2 Bilirubin Ql (U) Negative Normal NEGATIVE [facility] Comment on above: Performed By: #### U WILLEM #### [facility] [address] [place] [address] Dr. Darlene Lucero Clarity (U) CLEAR Normal CLEAR [facility] Comment on above: Performed By: #### U WILLEM #### [facility] [address] [place] [address] Dr. Darlene Lucero Color (U) LT. YELLOW Normal YELLOW [facility] Comment on above: Performed By: #### U WILLEM #### [facility] [address] [place] [address] Dr. Darlene BAKER A micrscopic examination will be performed if indicated. Normal [facility] Comment on above: Performed By: #### U WILLEM #### [facility] [address] [place] [address] Dr. Darlene Lucero Glucose Ql (U) Negative Normal NEGATIVE [facility] Comment on above: Performed By: #### U WILLEM #### [facility] [address] [place] [address] Dr. Darlene Lucero Hemoglobin Ql (U) TRACE-INTACT Abnormal NEGATIVE [facility] Comment on above: Performed By: #### U WILLEM #### [facility] [address] [place] [address] Dr. Darlene Lucero Ketones Ql (U) 15 mg/dl Abnormal NEGATIVE [facility] Comment on above: Performed By: #### U WILLEM #### [facility] [address] [place] [address] Dr. Darlene Lucero LEUKOCYTES Negative Normal NEGATIVE [facility] Comment on above: Performed By: #### U WILLEM #### [facility] [address] [place] [address] Dr. Darlene Lucero Nitrite Ql (U) Negative Normal NEGATIVE [facility] Comment on above: Performed By: #### U WILLEM #### [facility] [address] [place] [address] Dr. Darlene Lucero pH (U) 6.5 [pH] Normal 5-9 [facility] Comment on above: Performed By: #### U WILLEM #### [facility] [address] [place] [address] Dr. Darlene Lucero Protein (U) [Mass/Vol] 30 mg/dL Abnormal NEGATIVE/ TRACE [facility] Comment on above: Performed By: #### U WILLEM #### [facility] [address] [address] [address] Darlene Lucero SPEC GRAVITY 1.020 Normal 1.005-<=1.025 [facility] Comment on above: Performed By: #### U WILLEM #### [facility] [address] [place] [address] Dr. Darlene Lucero UR MICRO IND INDICATED Normal [facility] Comment on above: Performed By: #### U WILLEM #### [facility] [address] [place] [address] Dr. Darlene Lucero Urobilinogen Qn (U) 0.2 {Claudia'U}/dL Normal 0.2 - 1. 0 [facility] Comment on above: Performed By: #### U WILLEM #### [facility] [address] [place] [address] Dr. Darlene Lucero POINT OF CARE GLUCOSEon 08-14 Glucose [Mass/Vol] 147 mg/dL Critically high 74-106 T [facility] Comment on above: Performed By: #### B MP #### [facility] [address] [place] [address] Dr. Darlene Lucero PROF CHEM 8 (BAS METB)on Anion gap [Moles/Vol] 13.4 mmol/L Normal [facility] Comment on above: Performed By: #### U WILLEM #### [facility] [address] [place] [address] Dr. Darlene Lucero Calcium [Mass/Vol] 8.2 mg/dL Critically low 8.5-10.1 [facility] Comment on above: Performed By: #### U WILLEM #### [facility] [address] [address] [address] Darlene Lucero Chloride [Moles/Vol] 86 mmol/L Critically low 98-107 [facility] Comment on above: Performed By: #### U WILLEM #### [facility] [address] [address] [address] Darlene Lucero CO2 [Moles/Vol] 23.4 mmol/L Normal 21.0-32.0 [facility] Comment on above: Performed By: #### U WILLEM #### [facility] [address] [address] [address] Darlene Lucero Creatinine [Mass/Vol] 0.51 mg/dL Critically low 0.55-1.02 [facility] Comment on above: Performed By: #### U WILLEM #### [facility] [address] [address] [address] Darlene Lucero EGFR-AF EQUATORIAL GUINEAN >60 Normal >=60 [facility] Comment on above: Performed By: #### U WILLEM #### [facility] [address] [address] [address] Darlene Lucero EGFR-NON AF EQUATORIAL GUINEAN >60 Normal >=60 [facility] Comment on above: Performed By: #### U WILLEM #### [facility] [address] [address] [address] Darlene Lucero Glucose [Mass/Vol] 145 mg/dL Critically high 74-106 [facility] Comment on above: Performed By: #### U WILLEM #### [facility] [address] [address] [address] Darlene Lucero Potassium [Moles/Vol] 3.8 mmol/L Normal 3.5-5.1 [facility] Comment on above: Performed By: #### U WILLEM #### [facility] [address] [address] [address] Darlene Lucero Sodium [Moles/Vol] 119 mmol/L Critically low 136-145 [facility] Comment on above: Result Comment: Test Repeated. Critical Value Verified Performed By: #### U WILLEM #### [facility] [address] [place] [address] Dr. Darlene Lucero Urea nitrogen [Mass/Vol] 11.0 mg/dL Normal 7.0-18.0 [facility] Comment on above: Performed By: #### U WILLEM #### [facility] [address] [address] [address] Darlene Lucero Urea nitrogen/Creatinine [Mass ratio] 21.6 mg/mg Normal [facility] Comment on above: Performed By: #### U WILLEM #### [facility] [address] [address] [address] Darlene Lucero Anion gap [Moles/Vol] 11.9 mmol/L Normal [facility] Comment on above: Performed By: #### B MP #### [facility] [address] [address] [address] Darlene Lucero Calcium [Mass/Vol] 8.0 mg/dL Critically low 8.5-10.1 [facility] Comment on above: Performed By: #### B MP #### [facility] [address] [address] [address] Darlene Lucero Chloride [Moles/Vol] 83 mmol/L Critically low 98-107 [facility] Comment on above: Performed By: #### B MP #### [facility] [address] [address] [address] Darlene Lucero CO2 [Moles/Vol] 24.9 mmol/L Normal 21.0-32.0 [facility] Comment on above: Performed By: #### B MP #### [facility] [address] [address] [address] Darlene Lucero Creatinine [Mass/Vol] 0.61 mg/dL Normal 0.55-1.02 [facility] Comment on above: Performed By: #### B MP #### [facility] [address] [place] [address] Dr. Darlene Lucero EGFR-AF EQUATORIAL GUINEAN >60 Normal >=60 [facility] Comment on above: Performed By: #### B MP #### [facility] [address] [address] [address] Darlene Lucero EGFR-NON AF EQUATORIAL GUINEAN >60 Normal >=60 [facility] Comment on above: Performed By: #### B MP #### [facility] [address] [address] [address] Darlene Lucero Glucose [Mass/Vol] 212 mg/dL Critically high 74-106 [facility] Comment on above: Performed By: #### B MP #### [facility] [address] [address] [address] Darlene Lucero Potassium [Moles/Vol] 3.7 mmol/L Normal 3.5-5.1 [facility] Comment on above: Performed By: #### B MP #### [facility] [address] [address] [address] Darlene Lucero Sodium [Moles/Vol] 116 mmol/L Critically low 136-145 [facility] Comment on above: Performed By: #### B MP #### [facility] [address] [address] [address] Darlene Lucero Urea nitrogen [Mass/Vol] 12.0 mg/dL Normal 7.0-18.0 [facility] Comment on above: Performed By: #### B MP #### [facility] [address] [address] [address] Darlene Lucero Urea nitrogen/Creatinine [Mass ratio] 19.7 mg/mg Normal [facility] Comment on above: Performed By: #### B MP #### [facility] [address] [address] [address] Darlene Lucero Anion gap [Moles/Vol] 11.7 mmol/L Normal [facility] Comment on above: Performed By: #### B MP #### [facility] [address] [address] [address] Darlene Lucero Calcium [Mass/Vol] 8.0 mg/dL Critically low 8.5-10.1 [facility] Comment on above: Performed By: #### B MP #### [facility] [address] [address] [address] Darlene Lucero Chloride [Moles/Vol] 86 mmol/L Critically low 98-107 [facility] Comment on above: Performed By: #### B MP #### [facility] [address] [address] [address] Darlene Lucero CO2 [Moles/Vol] 27.6 mmol/L Normal 21.0-32.0 [facility] Comment on above: Performed By: #### B MP #### [facility] [address] [address] [address] Darlene Lucero Creatinine [Mass/Vol] 0.57 mg/dL Normal 0.55-1.02 [facility] Comment on above: Performed By: #### B MP #### [facility] [address] [address] [address] Darlene Lucero EGFR-AF EQUATORIAL GUINEAN >60 Normal >=60 [facility] Comment on above: Performed By: #### B MP #### [facility] [address] [address] [address] Darlene Lucero EGFR-NON AF EQUATORIAL GUINEAN >60 Normal >=60 [facility] Comment on above: Performed By: #### B MP #### [facility] [address] [address] [address] Darlene Lucero Glucose [Mass/Vol] 152 mg/dL Critically high 74-106 [facility] Comment on above: Performed By: #### B MP #### [facility] [address] [address] [address] Darlene Lucero Potassium [Moles/Vol] 4.3 mmol/L Normal 3.5-5.1 [facility] Comment on above: Performed By: #### B MP #### [facility] [address] [address] [address] Darlene Lucero Sodium [Moles/Vol] 120 mmol/L Critically low 136-145 [facility] Comment on above: Performed By: #### B MP #### [facility] [address] [address] [address] Darlene Lucero Urea nitrogen [Mass/Vol] 12.0 mg/dL Normal 7.0-18.0 [facility] Comment on above: Performed By: #### B MP #### [facility] [address] [address] [address] Darlene Lucero Urea nitrogen/Creatinine [Mass ratio] 21.1 mg/mg Normal [facility] Comment on above: Performed By: #### B MP #### [facility] [address] [address] [address] Darlene Lucero Anion gap [Moles/Vol] 10.2 mmol/L Normal [facility] Comment on above: Performed By: #### B MP #### [facility] [address] [address] [address] Darlene Lucero Calcium [Mass/Vol] 8.6 mg/dL Normal 8.5-10.1 [facility] Comment on above: Performed By: #### B MP #### [facility] [address] [address] [address] Darlene Lucero Chloride [Moles/Vol] 78 mmol/L Critically low 98-107 [facility] Comment on above: Performed By: #### B MP #### [facility] [address] [address] [address] Darlene Lucero CO2 [Moles/Vol] 29.6 mmol/L Normal 21.0-32.0 [facility] Comment on above: Performed By: #### B MP #### [facility] [address] [place] [address] Dr. Darlene Lucero Creatinine [Mass/Vol] 0.70 mg/dL Normal 0.55-1.02 [facility] Comment on above: Performed By: #### B MP #### [facility] [address] [address] [address] Darlene Lucero EGFR-AF EQUATORIAL GUINEAN >60 Normal >=60 [facility] Comment on above: Performed By: #### B MP #### [facility] [address] [place] [address] Dr. Darlene Lucero EGFR-NON AF EQUATORIAL GUINEAN >60 Normal >=60 [facility] Comment on above: Performed By: #### B MP #### [facility] [address] [place] [address] Dr. Darlene Lucero Glucose [Mass/Vol] 116 mg/dL Critically high 74-106 T [facility] Comment on above: Performed By: #### B MP #### [facility] [address] [address] [address] Darlene Lucero Potassium [Moles/Vol] 3.8 mmol/L Normal 3.5-5.1 [facility] Comment on above: Performed By: #### B MP #### [facility] [address] [address] [address] Darlene Lucero Sodium [Moles/Vol] 114 mmol/L Critically low 136-145 [facility] Comment on above: Performed By: #### B MP #### [facility] [address] [address] [address] Darlene Lucero Urea nitrogen [Mass/Vol] 17.0 mg/dL Normal 7.0-18.0 [facility] Comment on above: Performed By: #### B MP #### [facility] [address] [address] [address] Darlene Lucero Urea nitrogen/Creatinine [Mass ratio] 24.3 mg/mg Normal [facility] Comment on above: Performed By: #### B MP #### [facility] [address] [address] [address] Darlene Lucero SODIUM RANDOM URINEon 2021 Sodium (U) [Moles/Vol] 61 mmol/L Normal 30-90 [facility] Comment on above: Performed By: #### U WILLEM #### [facility] [address] [address] [address] Darlene Lucero TROPONIN, HIGH SENSITIVITYon 08-31-2021 HSTROP 14.6 pg/mL Normal 4.0-51.3 [facility] Comment on above: Result Comment: CUT- OFF POINTS HAVE BEEN ESTABLISHED BASED ON THE FOURTH UNIVERSAL DEFINITIONS OF MYOCARDIAL INFARCTION. THE UPPER REFERENCE LIMIT (URL) OF TROPONIN, DEFINED THE 99TH PERCENTILE OF cTnI DISTRIBUTION IN A REFERENCE POPULATION, HAS BEEN CONFIRMED THE DECISION THRESHOLD FOR ME DIAGNOSIS. Performed By: #### B MP #### [facility] [address] [address] [address] Darlene Lucero TSHon 08-31-2021 TSH 1.053 uIU/mL Normal 0.358-3.740 [facility] Comment on above: Performed By: #### B MP #### [facility] [address] [place] [address] Dr. Darlene Lucero TSH RANGE SEE BELOW Normal [facility] Comment on above: Result Comment: <0.3 4 UIU/ml HYPERTHYROID 0.34-5.60 UIU/ml EUTHYROID >5.60 UIU/ml HYPOTHYROID Performed By: #### B MP #### [facility] [address] [place] [address] Dr. Darlene Lucero URIC ACID SERUMon 08-31-2021 Urate [Mass/Vol] 1.4 mg/dL Critically low 2.6-6.0 [facility] Comment on above: Performed By: #### U WILLEM #### [facility] [address] [place] [address] Dr. Darlene Lucero URINE MICROSCOPIC ONLYon BACTERIA NONE SEEN Normal NONE SEEN [facility] Comment on above: Performed By: #### O SMOU #### [facility] [address] [place] [address] Dr. Darlene Lucero Bacteria identified Cx Nom (U) NOT INDICATED Normal [facility] Comment on above: Performed By: #### O SMOU #### [facility] [address] [place] [address] Dr. Darlene Lucero CAST NONE SEEN Normal NONE SEEN [facility] Comment on above: Performed By: #### O SMOU #### [facility] [address] [place] [address] Dr. Darlene Lucero Crystals LM Nom (Urine sed) NONE SEEN Normal NONE SEEN [facility] Comment on above: Performed By: #### O SMOU #### [facility] [address] [place] [address] Dr. Darlene Lucero Epithelial cells LM Ql (Urine sed) FEW Abnormal NONE SEEN /RARE [facility] Comment on above: Performed By: #### O SMOU #### [facility] [address] [place] [address] Dr. Darlene Lucero MUCOUS TRACE Abnormal NONE SEEN [facility] Comment on above: Performed By: #### O SMOU #### [facility] [address] [address] [address] Darlene Lucero RBC 0-2 Normal 0-2 [facility] Comment on above: Performed By: #### O SMOU #### [facility] [address] [place] [address] Dr. Darlene Lucero WBC NONE SEEN Normal NONE SEEN [facility] Comment on above: Performed By: #### O SMOU #### [facility] [address] [place] [address] Dr. Darlene Lucero URINE T PROTEIN CREAT RATIOo 08-31-2021 Protein (U) [Mass/Vol] 67.7 mg/dL Critically high <=12.0 [facility] Comment on above: Performed By: #### B MP #### [facility] [address] [place] [address] Dr. Darlene Lucero UR PROT CREAT RAT 0.75 Normal [facility] Comment on above: Performed By: #### B MP #### [facility] [address] [place] [address] Dr. Darlene Lucero URINE CREAT 89.84 mg/dL Normal 20.00-300.00 [facility] Comment on above: Performed By: #### B MP #### [facility] [address] [place] [address] Dr. Darlene Lucero XR CHEST 1 Von 08-31-2021 XR CHEST 1 V EXAM: Portable chest REASON FOR EXAM: Shortness of breath and generally does not feel well. Covid 19 positive. TECHNIQUE: A portable frontal view of the chest was obtained. COMPARISON: 10/19/2017. FINDINGS: The lungs lungs show stable hyperinflation. There is interstitial edema bilaterally, right greater than left. Chronic changes in both lungs are stable. There is no definite focal consolidation. The heart and mediastinum are normal. There is no mass or pathologic adenopathy. Osseous structures are normal. IMPRESSION: No definite infectious process, although the chronic changes in both lungs could mask a subtle overlying acute process. There is an overall appearance suggesting changes of congestive heart failure. Consider further evaluation with CT of the chest.. Electronically authenticated by: CHAYITO SOLIS Date: 2021-08-31 09:07 Normal [facility] Encounters Encounter Date Encounter Type Care Provider Facility Start: 06-01-2023 End: 06-01-2023 ambulatory FLACO RESENDIZ Not Available Start: 05-18-2023 Clinisync Result Encounter Flaco Resendiz MD Work Phone: [facility] Unsolicited Start: 05-18-2023 Clinisync Result Encounter Flaco Resendiz MD Work Phone: [facility] Unsolicited Start: 03-02-2023 End: 03-02-2023 ambulatory FLACO RESENDIZ Not Available Start: 08-05-2022 End: 08-06-[address] FLACO RESENDIZ Facility:[facility] Start: 05-20-2022 End: 05-21-[address] FLACO RESENDIZ Facility:[facility] Start: 03-25-2022 End: 03-26-[address] FLACO RESENDIZ Facility:[facility] Start: 03-04-2022 End: 03-05-[address] FLACO RESENDIZ Facility:[facility] Start: 11-01-2021 End: 11-01-[address] FLACO RESENDIZ Facility:[facility] Start: 09-20-2021 End: 09-20-[address] FLACO RESENDIZ Facility:[facility] Start: 08-31-2021 End: 09-05-2021 Evaluation and management of inpatient DR OLENA CHERY . Facility: Procedures Date Procedure Procedure Detail Performing Clinician Start: 05-18-2023 ALL BASIC METABOLIC PANEL Flaco Resendiz MD Work Phone: Plan of Treatment Date Care Activity Detail Author Start: 06-01-2023 End: 06-01-2023 Patient encounter procedure 06/01/2023 10:00 AM EST Office Visit [facility] [address] [facility] [address] [place] [id number] Flaco Resendiz MD [address] [facility] [address] [place] [address] [facility] Immunizations Immunization Date Immunization Notes Care Provider Fa cility 01-13-2022 Influenza, High-dose Seasonal, Quadrivalent, Preservative Free Flaco Resendiz MD Work Phone: [facility] 01-29-2021 Influenza, High-dose Seasonal, Quadrivalent, Preservative Free Flaco Resendiz MD Work Phone: [facility] 02-28-2020 influenza, high dose seasonal, preservative-free Flaco Resendiz MD Work Phone: [facility] 02-28-2020 zoster vaccine recombinant D cailin Resendiz MD Work Phone: [facility] 01-12-2019 influenza, high dose seasonal, preservative-free Flaco Resendiz MD Work Phone: [facility] 12-07-2017 Influenza, High-dose Seasonal, Quadrivalent, Preservative Free Flaco Resendiz MD Work Phone: [facility] 12-18-2016 influenza, high dose seasonal, preservative-free Flaco Resendiz MD Work Phone: [facility] 03-22-2016 pneumococcal conjuga te vaccine, 13 valent Flaco Resendiz MD Work Phone: [facility] 03-15-2016 influenza, injectabl e, quadrivalent, preservative free Flaco Resendiz MD Work Phone: [facility] 02-15-2015 influenza, injectabl e, quadrivalent, preservative free Flaco Resendiz MD Work Phone: [facility] 04-30-2012 pneumococcal polysaccharide vaccine, 23 valent Flaco Resendiz MD Work Phone: [facility] 01-14-2010 seasonal influenza, intradermal, preservative free Flaco Resendiz MD Work Phone: [facility] Payers Date Payer Category Payer Medicare MEDICARE MEDICAR E RAILROAD [id number] 1999-Present [employer] MEDICARE [address] [address] [place] [address] Medicare [id number] 1959 Medicare [id number] 1945 Unknown [id number] 1946 Unknown [id number] 1946 Unknown [id number] 1946 Unknown [id number] 1946 Unknown [id number] 1946 Unknown [id number] 1946 Unknown [id number] 1946 Unknown [id number] 1945 Unknown [id number] 9 Social History Date Type Detail Facility Start: 09-27-2022 Tobacco smoking status ALIS Ex-smoke r [facility] End: 09-25-2018 History of tobacco use Current smoker [facility] End: 09-25-2018 History of tobacco use Cigarette Smoker [facility] Start: 09-27-2022 End: 01-01-2023 Cigarettes smoked current (pack per day) - Reported 0.5 [facility] Start: 09-27-2022 Tobacco use and exposure Smoke less tobacco non-user [facility] Start: 03-02-2023 Alcohol intake Lifetime non-d richar (finding) [facility] Start: 01-01-2023 End: 03-02-2023 Humiliation, Afraid, Rape, and Kick questionnaire [HARK] [facility] Within the last year , have you been afraid of your partner or ex-partner? No [facility] Are you now , , , , never or living with a partner? [facility] How often to you hav e a drink containing alcohol? Never [facility] How many standard dr inks containing alcohol do you have on a typical day? Patient does not drink [facility] Do you feel stress - tense, restless, nervous, or anxious, or unable to sleep at night because your mind is troubled all the time - these days [OSQ] Not at all [facility] (I/We) worried wheth er (my/our) food would run out before (I/we) got money to buy more. Never true [facility] Start: 1945 Sex Assigned At Not on file [facility] Summary Purpose Family History No Family History Records FoundNo Family History Records Found Advance Directives No Advanced Directives Records FoundNo Advanced Directives Records Found Additional Source Comments INFORMATION SOURCE (unrecogn ized section and content) DATE CREATED AUTHOR 08/12/2022 [facility] DATE CREATED AUTHOR AUTHOR'S ORGANIZ ATION 06/03/2023 [facility] Care Teams (unrecognized sec tion and content) Machine Gunner Relationship Specialty Start Date End Date Flaco Resendiz MD [address] [facility] [address] [place] [address] PCP - ACO Reach 09/07/22 Flaco Resendiz MD [address] [facility] [address] [place] [address] PCP - General Internal Medicine 09/27/22 FOR RECORDS PERTAINING TO PATIENTS WHO ARE OR HAVE BEEN ENROLLED IN A CHEMICAL DEPENDENCY/SUBSTANCEABUSE PROGRAM, SOME INFORMATION MAY BE OMITTED. This clinical summary was aggregated from multiple sources. Caution should be exercised in using it in the provision of clinical care. This summary normalizes information from multiple sources, and as a consequence, information in this document may materially change the coding, format and clinical context of patient data. In addition, data may be omitted in some cases. CLINICAL DECISIONS SHOULD BE BASED ON THE PRIMARY CLINICAL RECORDS. [employer] provides no warranty or guarantee of the accuracy or completeness of information in this document.
[2023-08-17 08:13] LABS: Anion Gap 8.5; BUN Creatinine Ratio 23.3; Calcium 9.6 mg/dL (8.5-10.1); Carbon Dioxide 33.1 mmol/L (21.0-32.0); Chloride 95 mmol/L (98-107); Estimated GFR (African America >60 (>=60); Estimated GFR (Non-African Ame >60 (>=60); Glucose 94 mg/dL (74-106); Potassium 4.6 mmol/L (3.5-5.1); Sodium 132 mmol/L (136-145)
== END 2023-08-17 07:50 | disposition home or self-care (01) ==
LOC: LAB 07:49
PROVIDERS: PCP Internal Medicine; Visit Provider Internal Medicine
DX: E87.1 Hypo-osmolality and hyponatremia (principal)
CPT/HCPCS: 36415; 80048

== ENCOUNTER 2023-11-30 07:22 | Outpatient (OUT) | payer MEDICARE, SELFPAY ==
--- OUTSIDE RECORDS SUMMARY | 2023-11-30 07:27 | XMS_ITS | CCD ---
Author Organization [facility] Care Team Providers Care Stores Naval Name Role Phone MIRI ., DR OLENA Damon Admitting Unavailable CHERY ., DR OLENA Damon Attending Unavailable CHERY ., DR OLENA Damon Consulting Unavailable RESENDIZ, DR YI Primary Care Unavailable HAY ., DR RUIZ Consulting Unavailable IRMA, CHAYITO Consulting Unavailable FAWWAD, SHAIKH Valentino Consulting Unavailable SINGHANIA, MARCIE Consulting Unavailable HOFFERT, CHERI Consulting Unavailable LISSETTE, DR YI Admitting Unavailable LISSETTE, DR IY Consulting Unavailable RESENDIZ, DR YI Attending Unavailable RESENDIZ, DR YI Primary Care Unavailable RESENDIZ, DR YI Attending Unavailable RESENDIZ, DR YI Consulting Unavailable LISSETTE, DR YI Primary Care Unavailable RESENDIZ, DR YI Admitting Unavailable RESENDIZ, DR YI Attending Unavailable RESENDIZ, DR YI Consulting Unavailable RESENDIZ, DR YI Primary Care Unavailable RESENDIZ, DR YI Admitting Unavailable RESENDIZ, DR YI Admitting Unavailable RESENDIZ, DR YI Attending Unavailable RESENDIZ, DR YI Consulting Unavailable RESENDIZ, DR YI Primary Care Unavailable LISSETTE, DR YI Admitting Unavailable LISSETTE, DR YI Attending Unavailable RESENDIZ, DR YI Consulting Unavailable RESENDIZ, DR YI Primary Care Unavailable RESENDIZ, DR YI Admitting Unavailable RESENDIZ, DR YI Attending Unavailable LISSETTE, DR YI Consulting Unavailable LISSETTE, DR YI Primary Care Unavailable Flaco Resendiz MD Unavailable [phone] Flaco Resendiz MD Primary Care Provider FLACO RESENDIZ Attending Unavailable FLACO RESENDIZ Attending Unavailable FLACO RESENDIZ Attending Unavailable Allergies Allergy Classification Reported Allergen(s) Allergy Type Date of Onset Reaction(s) Facility (1 source) Gentamicin Drug Allergy 02-28-2021 Unknown [facility] Medications Current Medications Medication Drug Class(es) Dates Sig (Normalized) Sig (Original) [id number] 200 actuat albuterol 0.09 mg/actuat metered dose [...] same time. 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 1 mg/dL [facility] Chloride [Moles/Vol] 99 mmol/L 98 - 107 mmol/L [facility] CO2 [Moles/Vol] 31.4 mmol/L 21.0 - 32.0 mmol/L [facility] Creatinine [Mass/Vol] 0.63 mg/dL 0.55 - 1.02 mg/dL [facility] GFR/1.73 sq M.predicted CKD-EPI (S/P/Bld) [Vol rate/Area] >60 60 - PINF [facility] Glucose [Mass/Vol] 94 mg/dL 74 - 106 mg/dL [facility] Potassium [Moles/Vol] 4.1 mmol/L 3.5 - 5.1 mmol/L [facility] Sodium [Moles/Vol] 136 mmol/L 136 - 145 mmol/L [facility] TBH EGFR-NON AF MALIAN >60 60 - PINF [facility] Urea nitrogen [Mass/Vol] 18.0 mg/dL 7.0 - 18.0 mg/dL [facility] Urea nitrogen/Creatinine [Mass ratio] 28.6 mg/mg [facility] [place] [employer] [employer] [facility] PROF CHEM 8 (BAS METB)on Anion gap [Moles/Vol] 6.9 mmol/L Normal [facility] Comment on above: Performed By: #### B MP #### [facility] [address] [address] [address] Darlene Lucero Calcium [Mass/Vol] 9.1 mg/dL Normal 8.5-10.1 [facility] Comment on above: Performed By: #### B MP #### [facility] [address] [address] [address] Darlene Lucero Chloride [Moles/Vol] 96 mmol/L Critically low 98-107 [facility] Comment on above: Performed By: #### B MP #### [facility] [address] [address] [address] Darlene Lucero CO2 [Moles/Vol] 33.6 mmol/L Critically high 21.0-32.0 [facility] Comment on above: Performed By: #### B MP #### [facility] [address] [address] [address] Darlene Lucero Creatinine [Mass/Vol] 0.69 mg/dL Normal 0.55-1.02 [facility] Comment on above: Performed By: #### B MP #### [facility] [address] [address] [address] Darlene Lucero EGFR-AF MALIAN >60 Normal >=60 [facility] Comment on above: Performed By: #### B MP #### [facility] [address] [address] [address] Darlene Lucero EGFR-NON AF MALIAN >60 Normal >=60 [facility] Comment on above: Performed By: #### B MP #### [facility] [address] [address] [address] Darlene Lucero Glucose [Mass/Vol] 92 mg/dL Normal 74-106 [facility] Comment on above: Performed By: #### B MP #### [facility] [address] [address] [address] Darlene Lucero Potassium [Moles/Vol] 4.5 mmol/L Normal 3.5-5.1 [facility] Comment on above: Performed By: #### B MP #### [facility] [address] [address] [address] Darlene Lucero Sodium [Moles/Vol] 132 mmol/L Critically low 136-145 Th [facility] Comment on above: Performed By: #### B MP #### [facility] [address] [address] [address] Darlene Lucero Urea nitrogen [Mass/Vol] 18.0 mg/dL Normal 7.0-18.0 [facility] Comment on above: Performed By: #### B MP #### [facility] [address] [address] [address] Darlene Lucero Urea nitrogen/Creatinine [Mass ratio] 26.1 mg/mg Normal [facility] Comment on above: Performed By: #### B MP #### [facility] [address] [address] [address] Darlene Lucero PROF CHEM 8 (BAS METB)on Anion gap [Moles/Vol] 7.1 mmol/L Normal [facility] Comment on above: Performed By: #### B MP #### [facility] [address] [address] [address] Darlene Lucero Calcium [Mass/Vol] 9.4 mg/dL Normal 8.5-10.1 [facility] Comment on above: Performed By: #### B MP #### [facility] [address] [address] [address] Darlene Lucero Chloride [Moles/Vol] 95 mmol/L Critically low 98-107 [facility] Comment on above: Performed By: #### B MP #### [facility] [address] [address] [address] Darlene Lucero CO2 [Moles/Vol] 34.3 mmol/L Critically high 21.0-32.0 [facility] Comment on above: Performed By: #### B MP #### [facility] [address] [address] [address] Darlene Lucero Creatinine [Mass/Vol] 0.52 mg/dL Critically low 0.55-1.02 [facility] Comment on above: Performed By: #### B MP #### [facility] [address] [address] [address] Darlene Lucero EGFR-AF MALIAN >60 Normal >=60 [facility] Comment on above: Performed By: #### B MP #### [facility] [address] [address] [address] Darlene Lucero EGFR-NON AF MALIAN >60 Normal >=60 [facility] Comment on above: Performed By: #### B MP #### [facility] [address] [place] [address] Dr. Darlene Lucero Glucose [Mass/Vol] 111 mg/dL Critically high 74-106 [facility] Comment on above: Performed By: #### B MP #### [facility] [address] [address] [address] Darlene Lucero Potassium [Moles/Vol] 4.4 mmol/L Normal 3.5-5.1 [facility] Comment on above: Performed By: #### B MP #### [facility] [address] [address] [address] Darlene Lucero Sodium [Moles/Vol] 132 mmol/L Critically low 136-145 Th [facility] Comment on above: Performed By: #### B MP #### [facility] [address] [address] [address] Darlene Lucero Urea nitrogen [Mass/Vol] 16.0 mg/dL Normal 7.0-18.0 [facility] Comment on above: Performed By: #### B MP #### [facility] [address] [place] [address] Dr. Darlene Luceor Urea nitrogen/Creatinine [Mass ratio] 30.8 mg/mg Normal [facility] Comment on above: Performed By: #### B MP #### [facility] [address] [place] [address] Dr. Darlene Lucero PROF CHEM 8 (BAS METB)on Anion gap [Moles/Vol] 8.6 mmol/L Normal [facility] Comment on above: Performed By: #### O SMOU #### [facility] [address] [place] [address] Dr. Darlene Lucero Calcium [Mass/Vol] 9.3 mg/dL Normal 8.5-10.1 [facility] Comment on above: Performed By: #### O SMOU #### [facility] [address] [place] [address] Dr. Darlene Lucero Chloride [Moles/Vol] 94 mmol/L Critically low 98-107 [facility] Comment on above: Performed By: #### O SMOU #### [facility] [address] [place] [address] Dr. Darlene Lucero CO2 [Moles/Vol] 33.0 mmol/L Critically high 21.0-32.0 [facility] Comment on above: Performed By: #### O SMOU #### [facility] [address] [place] [address] Dr. Darlene Lucero Creatinine [Mass/Vol] 0.64 mg/dL Normal 0.55-1.02 [facility] Comment on above: Performed By: #### O SMOU #### [facility] [address] [place] [address] Dr. Darlene Lucero EGFR-AF MALIAN >60 Normal >=60 [facility] Comment on above: Performed By: #### O SMOU #### [facility] [address] [place] [address] Dr. Darlene Lucero EGFR-NON AF MALIAN >60 Normal >=60 [facility] Comment on above: Performed By: #### O SMOU #### [facility] [address] [address] [address] Darlene Lucero Glucose [Mass/Vol] 134 mg/dL Critically high 74-106 T [facility] Comment on above: Performed By: #### O SMOU #### [facility] [address] [address] [address] Darlene Lucero Potassium [Moles/Vol] 4.6 mmol/L Normal 3.5-5.1 [facility] Comment on above: Performed By: #### O SMOU #### [facility] [address] [place] [address] Dr. Darlene Lucero Sodium [Moles/Vol] 131 mmol/L Critically low 136-145 Th [facility] Comment on above: Performed By: #### O SMOU #### [facility] [address] [place] [address] Dr. Darlene Lucero Urea nitrogen [Mass/Vol] 10.0 mg/dL Normal 7.0-18.0 [facility] Comment on above: Performed By: #### O SMOU #### [facility] [address] [place] [address] Dr. Darlene Lucero Urea nitrogen/Creatinine [Mass ratio] 15.6 mg/mg Normal [facility] Comment on above: Performed By: #### O SMOU #### [facility] [address] [place] [address] Dr. Darlene Lucero PROF CHEM 8 (BAS METB)on Anion gap [Moles/Vol] 5.9 mmol/L Normal [facility] Comment on above: Performed By: #### B MP #### [facility] [address] [place] [address] Dr. Darlene Lucero Calcium [Mass/Vol] 9.0 mg/dL Normal 8.5-10.1 [facility] Comment on above: Performed By: #### B MP #### [facility] [address] [place] [address] Dr. Darlene Lucero Chloride [Moles/Vol] 96 mmol/L Critically low 98-107 [facility] Comment on above: Performed By: #### B MP #### [facility] [address] [address] [address] Darlene Lucero CO2 [Moles/Vol] 31.5 mmol/L Normal 21.0-32.0 [facility] Comment on above: Performed By: #### B MP #### [facility] [address] [address] [address] Darlene Lucero Creatinine [Mass/Vol] 0.57 mg/dL Normal 0.55-1.02 [facility] Comment on above: Performed By: #### B MP #### [facility] [address] [place] [address] Dr. Darlene Lucero EGFR-AF MALIAN >60 Normal >=60 [facility] Comment on above: Performed By: #### B MP #### [facility] [address] [place] [address] Dr. Darlene Lucero EGFR-NON AF MALIAN >60 Normal >=60 [facility] Comment on above: Performed By: #### B MP #### [facility] [address] [place] [address] Dr. Darlene Lucero Glucose [Mass/Vol] 94 mg/dL Normal 74-106 [facility] Comment on above: Performed By: #### B MP #### [facility] [address] [place] [address] Dr. Darlene Lucero Potassium [Moles/Vol] 4.4 mmol/L Normal 3.5-5.1 [facility] Comment on above: Performed By: #### B MP #### [facility] [address] [address] [address] Darlene Lucero Sodium [Moles/Vol] 129 mmol/L Critically low 136-145 Th [facility] Comment on above: Performed By: #### B MP #### [facility] [address] [address] [address] Darlene Lucero Urea nitrogen [Mass/Vol] 18.0 mg/dL Normal 7.0-18.0 [facility] Comment on above: Performed By: #### B MP #### [facility] [address] [place] [address] Dr. Darlene Lucero Urea nitrogen/Creatinine [Mass ratio] 31.6 mg/mg Normal [facility] Comment on above: Performed By: #### B MP #### [facility] [address] [place] [address] Dr. Darlene Lcuero PROF 14(COMP METB)on 022 Albumin [Mass/Vol] 3.4 g/dL Normal 3.4-5.0 [facility] Comment on above: Performed By: #### B MP #### [facility] [address] [place] [address] Dr. Darlene Lucero Albumin/Globulin [Mass ratio] 0.9 {ratio} Normal [facility] Comment on above: Performed By: #### B MP #### [facility] [address] [place] [address] Dr. Darlene Lucero ALP [Catalytic activity/Vol] 63 U/L Normal 46-116 [facility] Comment on above: Performed By: #### B MP #### [facility] [address] [place] [address] Dr. Darlene Lucero ALT [Catalytic activity/Vol] 16 U/L Normal 14-59 [facility] Comment on above: Performed By: #### B MP #### [facility] [address] [place] [address] Dr. Darlene Lucero Anion gap [Moles/Vol] 11.5 mmol/L Normal [facility] Comment on above: Performed By: #### B MP #### [facility] [address] [place] [address] Dr. Darlene Lucero AST [Catalytic activity/Vol] 12 U/L Critically low 15-37 [facility] Comment on above: Performed By: #### B MP #### [facility] [address] [place] [address] Dr. Darlene Lucero Bilirubin [Mass/Vol] 0.3 mg/dL Normal 0.2-1.0 [facility] Comment on above: Performed By: #### B MP #### [facility] [address] [address] [address] Darlene Lucero Calcium [Mass/Vol] 8.9 mg/dL Normal 8.5-10.1 [facility] Comment on above: Performed By: #### B MP #### [facility] [address] [address] [address] Darlene Lucero Chloride [Moles/Vol] 96 mmol/L Critically low 98-107 [facility] Comment on above: Performed By: #### B MP #### [facility] [address] [address] [address] Darlene Lucero CO2 [Moles/Vol] 29.4 mmol/L Normal 21.0-32.0 [facility] Comment on above: Performed By: #### B MP #### [facility] [address] [address] [address] Darlene Lucero Creatinine [Mass/Vol] 0.70 mg/dL Normal 0.55-1.02 [facility] Comment on above: Performed By: #### B MP #### [facility] [address] [address] [address] Darlene Lucero EGFR-AF MALIAN >60 Normal >=60 [facility] Comment on above: Performed By: #### B MP #### [facility] [address] [address] [address] Darlene Lucero EGFR-NON AF MALIAN >60 Normal >=60 [facility] Comment on above: Performed By: #### B MP #### [facility] [address] [address] [address] Darlene Lucero Globulin (S) [Mass/Vol] 3.8 g/dL Normal [facility] Comment on above: Performed By: #### B MP #### [facility] [address] [address] [address] Darlene Lucero Glucose [Mass/Vol] 114 mg/dL Critically high 74-106 [facility] Comment on above: Performed By: #### B MP #### [facility] [address] [address] [address] Darlene Lucero Potassium [Moles/Vol] 3.9 mmol/L Normal 3.5-5.1 [facility] Comment on above: Performed By: #### B MP #### [facility] [address] [place] [address] Dr. Darlene Lucero Protein [Mass/Vol] 7.2 g/dL Normal 6.4-8.2 [facility] Comment on above: Performed By: #### B MP #### [facility] [address] [place] [address] Dr. Darlene Lucero Sodium [Moles/Vol] 133 mmol/L Critically low 136-145 [facility] Comment on above: Performed By: #### B MP #### [facility] [address] [place] [address] Dr. Darlene Lucero Urea nitrogen [Mass/Vol] 19.0 mg/dL Critically high 7.0-18.0 [facility] Comment on above: Performed By: #### B MP #### [facility] [address] [place] [address] Dr. Darlene Lucero Urea nitrogen/Creatinine [Mass ratio] 27.1 mg/mg Normal [facility] Comment on above: Performed By: #### B MP #### [facility] [address] [place] [address] Dr. Darlene Lucero PROF 14(COMP METB)on 022 Albumin [Mass/Vol] 3.2 g/dL Critically low 3.4-5.0 [facility] Comment on above: Performed By: #### B MP #### [facility] [address] [place] [address] Dr. Darlene Lucero Albumin/Globulin [Mass ratio] 0.9 {ratio} Normal [facility] Comment on above: Performed By: #### B MP #### [facility] [address] [place] [address] Dr. Darlene Lucero ALP [Catalytic activity/Vol] 60 U/L Normal 46-116 [facility] Comment on above: Performed By: #### B MP #### [facility] [address] [address] [address] Darlene Lucero ALT [Catalytic activity/Vol] 17 U/L Normal 14-59 [facility] Comment on above: Performed By: #### B MP #### [facility] [address] [place] [address] Dr. Darlene Lucero Anion gap [Moles/Vol] 8.0 mmol/L Normal [facility] Comment on above: Performed By: #### B MP #### [facility] [address] [address] [address] Darlene Lucero AST [Catalytic activity/Vol] 12 U/L Critically low 15-37 [facility] Comment on above: Performed By: #### B MP #### [facility] [address] [place] [address] Dr. Darlene Lucero Bilirubin [Mass/Vol] 0.4 mg/dL Normal 0.2-1.0 [facility] Comment on above: Performed By: #### B MP #### [facility] [address] [place] [address] Dr. Darlene Lucero Calcium [Mass/Vol] 9.4 mg/dL Normal 8.5-10.1 [facility] Comment on above: Performed By: #### B MP #### [facility] [address] [place] [address] Dr. Darlene Lucero Chloride [Moles/Vol] 96 mmol/L Critically low 98-107 [facility] Comment on above: Performed By: #### B MP #### [facility] [address] [place] [address] Dr. Darlene Lucero CO2 [Moles/Vol] 32.4 mmol/L Critically high 21.0-32.0 [facility] Comment on above: Performed By: #### B MP #### [facility] [address] [place] [address] Dr. Darlene Lucero Creatinine [Mass/Vol] 0.64 mg/dL Normal 0.55-1.02 [facility] Comment on above: Performed By: #### B MP #### [facility] [address] [place] [address] Dr. Darlene Lucero EGFR-AF MALIAN >60 Normal >=60 [facility] Comment on above: Performed By: #### B MP #### [facility] [address] [address] [address] Darlene Lucero EGFR-NON AF MALIAN >60 Normal >=60 [facility] Comment on above: Performed By: #### B MP #### [facility] [address] [address] [address] Darlene Lucero Globulin (S) [Mass/Vol] 3.7 g/dL Normal [facility] Comment on above: Performed By: #### B MP #### [facility] [address] [address] [address] Darlene Lucero Glucose [Mass/Vol] 63 mg/dL Critically low 74-106 Th [facility] Comment on above: Performed By: #### B MP #### [facility] [address] [address] [address] Darlene Lucero Potassium [Moles/Vol] 4.4 mmol/L Normal 3.5-5.1 [facility] Comment on above: Performed By: #### B MP #### [facility] [address] [address] [address] Darlene Lucero Protein [Mass/Vol] 6.9 g/dL Normal 6.4-8.2 [facility] Comment on above: Performed By: #### B MP #### [facility] [address] [address] [address] Darlene Lucero Sodium [Moles/Vol] 132 mmol/L Critically low 136-145 Th [facility] Comment on above: Performed By: #### B MP #### [facility] [address] [address] [address] Darlene Lucero Urea nitrogen [Mass/Vol] 16.0 mg/dL Normal 7.0-18.0 [facility] Comment on above: Performed By: #### B MP #### [facility] [address] [address] [address] Darlene Lucero Urea nitrogen/Creatinine [Mass ratio] 25.0 mg/mg Normal [facility] Comment on above: Performed By: #### B MP #### [facility] [address] [place] [address] Dr. Darlene Lucero OSMOLALITYon 09-07-2021 Osmolality [Osmolality] 268 mosm/kg Critically low 280-301 [facility] Comment on above: Performed By: #### U WILLEM #### [facility] [address] [place] [address] Dr. Darlene Lucero OSMOLALITY URINEon 2 Osmolality, Urine 565 mOsmol/kg Normal [facility] Comment on above: Result Comment: 24 h r : 300 - 900 Random: 50 - 1400 After 12hr fluid restriction: >850 Performed By: #### B MP #### [facility] [address] [place] [address] Dr. Darlene Lucero CBC AUTO DIFFon 09-05-2021 BASO # 0.0 103/ul Normal 0.0-0.1 [facility] Comment on above: Performed By: #### B MP #### [facility] [address] [place] [address] Dr. Darlene Lucero Basophils/100 WBC (Bld) 0.3 % Normal 0.2-2.0 [facility] Comment on above: Performed By: #### B MP #### [facility] [address] [place] [address] Dr. Darlene Lucero EO # 0.0 103/ul Normal 0.0-0.7 [facility] Comment on above: Performed By: #### B MP #### [facility] [address] [place] [address] Dr. Darlene Lucero Eosinophils/100 WBC (Bld) 0.1 % Critically low 0.9-7.0 [facility] Comment on above: Performed By: #### B MP #### [facility] [address] [place] [address] Dr. Darlene Lucero Erythrocyte distribution width (RBC) [Ratio] 12.9 % Normal 11.0-15.0 [facility] Comment on above: Performed By: #### B MP #### [facility] [address] [place] [address] Dr. Darlene Lucero Hematocrit (Bld) [Volume fraction] 32.5 % Critically low 36.0-48.0 [facility] Comment on above: Performed By: #### B MP #### [facility] [address] [place] [address] Dr. Darlene Lucero Hemoglobin (Bld) [Mass/Vol] 10.5 g/dL Critically low 12.0-16.0 [facility] Comment on above: Performed By: #### B MP #### [facility] [address] [place] [address] Dr. Darlene Lucero IG # 0.11 10e3/ul Critically high 0.00-0.03 [facility] Comment on above: Performed By: #### B MP #### [facility] [address] [place] [address] Dr. Darlene Lucero IG % 1.6 % Critically high 0.0-0.5 [facility] Comment on above: Performed By: #### B MP #### [facility] [address] [place] [address] Dr. Darlene Lucero LYMPH # 1.5 103/ul Normal 1.2-3.8 [facility] Comment on above: Performed By: #### B MP #### [facility] [address] [place] [address] Dr. Darlene Lucero Lymphocytes/100 WBC (Bld) 22.4 % Normal 20.5-60.0 [facility] Comment on above: Performed By: #### B MP #### [facility] [address] [place] [address] Dr. Darlene Lucero MANUAL DIFF REQ NO Normal [facility] Comment on above: Performed By: #### B MP #### [facility] [address] [place] [address] Dr. Darlene Lucero MCH (RBC) [Entitic mass] 29.5 pg Normal 26.7-34.0 [facility] Comment on above: Performed By: #### B MP #### [facility] [address] [place] [address] Dr. Darlene Lucero MCHC (RBC) [Mass/Vol] 32.3 g/dL Normal 29.9-35.2 [facility] Comment on above: Performed By: #### B MP #### [facility] [address] [address] [address] Darlene Lucero MCV (RBC) [Entitic vol] 91.3 fL Normal 81.0-99.0 [facility] Comment on above: Performed By: #### B MP #### [facility] [address] [address] [address] Darlene Lucero MONO # 0.8 103/ul Normal 0.3-0.8 [facility] Comment on above: Performed By: #### B MP #### [facility] [address] [address] [address] Darlene Lucero Monocytes/100 WBC (Bld) 11.6 % Normal 1.7-12.0 [facility] Comment on above: Performed By: #### B MP #### [facility] [address] [address] [address] Darlene Lucero NEUT # 4.4 103/ul Normal 1.4-6.5 [facility] Comment on above: Performed By: #### B MP #### [facility] [address] [place] [address] Dr. Darlene Lucero Neutrophils/100 WBC (Bld) 64.0 % Normal 43.0-75.0 [facility] Comment on above: Performed By: #### B MP #### [facility] [address] [address] [address] Darlene Lucero Platelet mean volume (Bld) [Entitic vol] 8.1 fL Critically low 9.5-13.5 [facility] Comment on above: Performed By: #### B MP #### [facility] [address] [address] [address] Darlene Lucero PLT 571 103/ul Critically high 150-450 [facility] Comment on above: Performed By: #### B MP #### [facility] [address] [address] [address] Darlene Lucero RBC 3.56 106/ul Critically low 4.20-5.40 [facility] Comment on above: Performed By: #### B MP #### [facility] [address] [place] [address] Dr. Darlene Lucero WBC 6.9 103/ul Normal 4.0-11.0 [facility] Comment on above: Performed By: #### B MP #### [facility] [address] [place] [address] Dr. Darlene Lucero [facility]15 SARS-CoV-2 (COVID-19) RNA TASHA+probe Ql (Unsp spec) Detected Critically abnormal NOT DETECTED [facility] Comment on above: Result Comment: This test is not yet approved or cleared by the [place] FDA. When there are no FDA-approved or cleared tests available, and other criteria are met, FDA can make tests available under an emergency access mechanism called an Emergency Use Authorization (EUA). The EUA for this test is supported by the [place] of Health and Human Service's (HHS's) declaration [...] used). Performed By: #### B MP #### [facility] [address] [place] [address] Dr. Darlene Lucero PROF CHEM 8 (BAS METB)on Anion gap [Moles/Vol] 7.3 mmol/L Normal [facility] Comment on above: Performed By: #### B MP #### [facility] [address] [place], [place] [id number] Dr. Darlene Lucero Calcium [Mass/Vol] 8.5 mg/dL Normal 8.5-10.1 [facility] Comment on above: Performed By: #### B MP #### [facility] [address] [place] [address] Dr. Darlene Lucero Chloride [Moles/Vol] 101 mmol/L Normal 98-107 [facility] Comment on above: Performed By: #### B MP #### [facility] [address] [address] [address] Darlene Lucero CO2 [Moles/Vol] 31.6 mmol/L Normal 21.0-32.0 [facility] Comment on above: Performed By: #### B MP #### [facility] [address] [address] [address] Darlene Lucero Creatinine [Mass/Vol] 0.49 mg/dL Critically low 0.55-1.02 [facility] Comment on above: Performed By: #### B MP #### [facility] [address] [address] [address] Darlene Lucero EGFR-AF MALIAN >60 Normal >=60 [facility] Comment on above: Performed By: #### B MP #### [facility] [address] [address] [address] Darlene Lucero EGFR-NON AF MALIAN >60 Normal >=60 [facility] Comment on above: Performed By: #### B MP #### [facility] [address] [address] [address] Darlene Lucero Glucose [Mass/Vol] 88 mg/dL Normal 74-106 [facility] [place] Comment on above: Performed By: #### B MP #### [facility] [address] [address] [address] Darlene Lucero Potassium [Moles/Vol] 3.9 mmol/L Normal 3.5-5.1 [facility] Comment on above: Performed By: #### B MP #### [facility] [address] [address] [address] Darlene Lucero Sodium [Moles/Vol] 136 mmol/L Normal 136-145 [facility] [place] Comment on above: Performed By: #### B MP #### [facility] [address] [address] [address] Darlene Lucero Urea nitrogen [Mass/Vol] 15.0 mg/dL Normal 7.0-18.0 [facility] Comment on above: Performed By: #### B MP #### [facility] [address] [place] [address] Dr. Darlene Lucero Urea nitrogen/Creatinine [Mass ratio] 30.6 mg/mg Normal [facility] Comment on above: Performed By: #### B MP #### [facility] [address] [place] [address] Dr. Darlene Lucero CBC AUTO DIFFon 09-04-2021 BASO # 0.0 103/ul Normal 0.0-0.1 [facility] Comment on above: Performed By: #### O SMOU #### [facility] [address] [place] [address] Dr. Darlene Lucero Basophils/100 WBC (Bld) 0.2 % Normal 0.2-2.0 [facility] Comment on above: Performed By: #### O SMOU #### [facility] [address] [place] [address] Dr. Darlene Lucero EO # 0.0 103/ul Normal 0.0-0.7 [facility] Comment on above: Performed By: #### O SMOU #### [facility] [address] [place] [address] Dr. Darlene Lucero Eosinophils/100 WBC (Bld) 0.0 % Critically low 0.9-7.0 [facility] Comment on above: Performed By: #### O SMOU #### [facility] [address] [place] [address] Dr. Darlene Lucero Erythrocyte distribution width (RBC) [Ratio] 12.7 % Normal 11.0-15.0 [facility] Comment on above: Performed By: #### O SMOU #### [facility] [address] [place] [address] Dr. Darlene Lucero Hematocrit (Bld) [Volume fraction] 32.0 % Critically low 36.0-48.0 [facility] Comment on above: Performed By: #### O SMOU #### [facility] [address] [place] [address] Dr. Darlene Lucero Hemoglobin (Bld) [Mass/Vol] 10.4 g/dL Critically low 12.0-16.0 [facility] Comment on above: Performed By: #### O SMOU #### [facility] [address] [place] [address] Dr. Darlene Lucero IG # 0.07 10e3/ul Critically high 0.00-0.03 [facility] Comment on above: Performed By: #### O SMOU #### [facility] [address] [place] [address] Dr. Darlene Lucero IG % 1.1 % Critically high 0.0-0.5 [facility] Comment on above: Performed By: #### O SMOU #### [facility] [address] [place] [address] Dr. Darlene Lucero LYMPH # 1.4 103/ul Normal 1.2-3.8 [facility] Comment on above: Performed By: #### O SMOU #### [facility] [address] [place] [address] Dr. Darlene Lucero Lymphocytes/100 WBC (Bld) 21.9 % Normal 20.5-60.0 [facility] Comment on above: Performed By: #### O SMOU #### [facility] [address] [place] [address] Dr. Darlene Lucero MANUAL DIFF REQ NO Normal [facility] Comment on above: Performed By: #### O SMOU #### [facility] [address] [place] [address] Dr. Darlene Lucero MCH (RBC) [Entitic mass] 29.4 pg Normal 26.7-34.0 [facility] Comment on above: Performed By: #### O SMOU #### [facility] [address] [place] [address] Dr. Darlene Lucero MCHC (RBC) [Mass/Vol] 32.5 g/dL Normal 29.9-35.2 [facility] Comment on above: Performed By: #### O SMOU #### [facility] [address] [place] [address] Dr. Darlene Lucero MCV (RBC) [Entitic vol] 90.4 fL Normal 81.0-99.0 [facility] Comment on above: Performed By: #### O SMOU #### [facility] [address] [place] [address] Dr. Darlene Lucero MONO # 0.8 103/ul Normal 0.3-0.8 [facility] Comment on above: Performed By: #### O SMOU #### [facility] [address] [place] [address] Dr. Darlene Lucero Monocytes/100 WBC (Bld) 12.6 % Critically high 1.7-12.0 [facility] Comment on above: Performed By: #### O SMOU #### [facility] [address] [place] [address] Dr. Darlene Lucero NEUT # 4.2 103/ul Normal 1.4-6.5 [facility] Comment on above: Performed By: #### O SMOU #### [facility] [address] [place] [address] Dr. Darlene Lucero Neutrophils/100 WBC (Bld) 64.2 % Normal 43.0-75.0 [facility] Comment on above: Performed By: #### O SMOU #### [facility] [address] [place] [address] Dr. Darlene Lucero Platelet mean volume (Bld) [Entitic vol] 8.0 fL Critically low 9.5-13.5 [facility] Comment on above: Performed By: #### O SMOU #### [facility] [address] [place] [address] Dr. Darlene Lucero PLT 524 103/ul Critically high 150-450 [facility] Comment on above: Performed By: #### O SMOU #### [facility] [address] [place] [address] Dr. Darlene Lucero RBC 3.54 106/ul Critically low 4.20-5.40 [facility] Comment on above: Performed By: #### O SMOU #### [facility] [address] [place] [address] Dr. Darlene Lucero WBC 6.5 103/ul Normal 4.0-11.0 [facility] Comment on above: Performed By: #### O SMOU #### [facility] [address] [address] [address] Darlene Lucero POINT OF CARE GLUCOSEon 08-15 Glucose [Mass/Vol] 120 mg/dL Critically high 74-106 [facility] Comment on above: Performed By: #### U WILLEM #### [facility] [address] [address] [address] Darlene Lucero Glucose [Mass/Vol] 129 mg/dL Critically high 74-106 [facility] Comment on above: Performed By: #### P OCGLUC #### [facility] [address] [place] [address] Dr. Darlene Lucero Glucose [Mass/Vol] 111 mg/dL Critically high 74-106 [facility] Comment on above: Performed By: #### B MP #### [facility] [address] [address] [address] Darlene Lucero Glucose [Mass/Vol] 89 mg/dL Normal 74-106 [facility] Comment on above: Performed By: #### B MP #### [facility] [address] [address] [address] Darlene Lucero PROF CHEM 8 (BAS METB)on Anion gap [Moles/Vol] 8.0 mmol/L Normal [facility] Comment on above: Performed By: #### B MP #### [facility] [address] [place] [address] Dr. Darlene Lucero Calcium [Mass/Vol] 8.6 mg/dL Normal 8.5-10.1 [facility] Comment on above: Performed By: #### B MP #### [facility] [address] [place] [address] Dr. Darlene Lucero Chloride [Moles/Vol] 97 mmol/L Critically low 98-107 [facility] Comment on above: Performed By: #### B MP #### [facility] [address] [place] [address] Dr. Darlene Lucero CO2 [Moles/Vol] 31.6 mmol/L Normal 21.0-32.0 [facility] Comment on above: Performed By: #### B MP #### [facility] [address] [place] [address] Dr. Darlene Lucero Creatinine [Mass/Vol] 0.63 mg/dL Normal 0.55-1.02 [facility] Comment on above: Performed By: #### B MP #### [facility] [address] [address] [address] Darlene Lucero EGFR-AF MALIAN >60 Normal >=60 [facility] Comment on above: Performed By: #### B MP #### [facility] [address] [place] [address] Dr. Darlene Lucero EGFR-NON AF MALIAN >60 Normal >=60 [facility] Comment on above: Performed By: #### B MP #### [facility] [address] [place] [address] Dr. Darlene Lucero Glucose [Mass/Vol] 96 mg/dL Normal 74-106 [facility] Comment on above: Performed By: #### B MP #### [facility] [address] [place] [address] Dr. Darlene Lucero Potassium [Moles/Vol] 3.6 mmol/L Normal 3.5-5.1 [facility] Comment on above: Performed By: #### B MP #### [facility] [address] [place] [address] Dr. Darlene Lucero Sodium [Moles/Vol] 133 mmol/L Critically low 136-145 [facility] Comment on above: Performed By: #### B MP #### [facility] [address] [place] [address] Dr. Darlene Lucero Urea nitrogen [Mass/Vol] 18.0 mg/dL Normal 7.0-18.0 [facility] Comment on above: Performed By: #### B MP #### [facility] [address] [place] [address] Dr. Darlene Lucero Urea nitrogen/Creatinine [Mass ratio] 28.6 mg/mg Normal [facility] Comment on above: Performed By: #### B MP #### [facility] [address] [address] [address] Darlene Lucero CBC AUTO DIFFon 09-03-2021 BASO # 0.0 103/ul Normal 0.0-0.1 [facility] Comment on above: Performed By: #### B MP #### [facility] [address] [address] [address] Darlene Lucero Basophils/100 WBC (Bld) 0.0 % Critically low 0.2-2.0 [facility] Comment on above: Performed By: #### B MP #### [facility] [address] [address] [address] Darlnee Lucero EO # 0.0 103/ul Normal 0.0-0.7 [facility] Comment on above: Performed By: #### B MP #### [facility] [address] [place] [address] Dr. Darlene Lucero Eosinophils/100 WBC (Bld) 0.0 % Critically low 0.9-7.0 [facility] Comment on above: Performed By: #### B MP #### [facility] [address] [address] [address] Darlene Lucero Erythrocyte distribution width (RBC) [Ratio] 12.3 % Normal 11.0-15.0 [facility] Comment on above: Performed By: #### B MP #### [facility] [address] [address] [address] Darlene Lucero Hematocrit (Bld) [Volume fraction] 32.1 % Critically low 36.0-48.0 [facility] Comment on above: Performed By: #### B MP #### [facility] [address] [address] [address] Darlene Lucero Hemoglobin (Bld) [Mass/Vol] 10.9 g/dL Critically low 12.0-16.0 [facility] Comment on above: Performed By: #### B MP #### [facility] [address] [address] [address] Darlene Lucero IG # 0.04 10e3/ul Critically high 0.00-0.03 [facility] Comment on above: Performed By: #### B MP #### [facility] [address] [address] [address] Darlene Lucero IG % 0.7 % Critically high 0.0-0.5 [facility] Comment on above: Performed By: #### B MP #### [facility] [address] [place] [address] Dr. Darlene Lucero LYMPH # 1.2 103/ul Normal 1.2-3.8 [facility] Comment on above: Performed By: #### B MP #### [facility] [address] [place] [address] Dr. Darlene Lucero Lymphocytes/100 WBC (Bld) 21.3 % Normal 20.5-60.0 [facility] Comment on above: Performed By: #### B MP #### [facility] [address] [place] [address] Dr. Darlene Lucero MANUAL DIFF REQ NO Normal [facility] Comment on above: Performed By: #### B MP #### [facility] [address] [place] [address] Dr. Darlene Lucero MCH (RBC) [Entitic mass] 29.9 pg Normal 26.7-34.0 [facility] Comment on above: Performed By: #### B MP #### [facility] [address] [place] [address] Dr. Darlene Lucero MCHC (RBC) [Mass/Vol] 34.0 g/dL Normal 29.9-35.2 [facility] Comment on above: Performed By: #### B MP #### [facility] [address] [place] [address] Dr. Darlene Lucero MCV (RBC) [Entitic vol] 87.9 fL Normal 81.0-99.0 [facility] Comment on above: Performed By: #### B MP #### [facility] [address] [place] [address] Dr. Darlene Lucero MONO # 1.0 103/ul Critically high 0.3-0.8 [facility] Comment on above: Performed By: #### B MP #### [facility] [address] [place] [address] Dr. Darlene Lucero Monocytes/100 WBC (Bld) 17.2 % Critically high 1.7-12.0 [facility] Comment on above: Performed By: #### B MP #### [facility] [address] [place] [address] Dr. Darlene Lucero NEUT # 3.5 103/ul Normal 1.4-6.5 [facility] Comment on above: Performed By: #### B MP #### [facility] [address] [address] [address] Darlene Lucero Neutrophils/100 WBC (Bld) 60.8 % Normal 43.0-75.0 [facility] Comment on above: Performed By: #### B MP #### [facility] [address] [place] [address] Dr. Darlene Lucero Platelet mean volume (Bld) [Entitic vol] 8.1 fL Critically low 9.5-13.5 [facility] Comment on above: Performed By: #### B MP #### [facility] [address] [place] [address] Dr. Darlene Lucero PLT 499 103/ul Critically high 150-450 [facility] Comment on above: Performed By: #### B MP #### [facility] [address] [place] [address] Dr. Darlene Lucero RBC 3.65 106/ul Critically low 4.20-5.40 [facility] Comment on above: Performed By: #### B MP #### [facility] [address] [place] [address] Dr. Darlene Lucero WBC 5.8 103/ul Normal 4.0-11.0 [facility] Comment on above: Performed By: #### B MP #### [facility] [address] [place] [address] Dr. Darlene Lucero Covid-19 PCR ([facility])on 08-15 SARS-CoV-2 (COVID-19) RNA TASHA+probe Ql (Unsp spec) Detected Critically abnormal NOT DETECTED [facility] Comment on above: Result Comment: This test is not yet approved or cleared by the [place] FDA. When there are no FDA-approved or cleared tests available, and other criteria are met, FDA can make tests available under an emergency access mechanism called an Emergency Use Authorization (EUA). The EUA for this test is supported by the [place] of Health and Human Service's declaration that [...] used). Performed By: #### B MP #### [facility] [address] [place] [address] Dr. Darlene Lucero POINT OF CARE GLUCOSEon 08-15 Glucose [Mass/Vol] 131 mg/dL Critically high 74-106 [facility] Comment on above: Performed By: #### B MP #### [facility] [address] [place] [address] Dr. Darlene Lucero Glucose [Mass/Vol] 131 mg/dL Critically high 74-106 [facility] Comment on above: Performed By: #### B MP #### [facility] [address] [place] [address] Dr. Darlene Lucero PROF CHEM 8 (BAS METB)on Anion gap [Moles/Vol] 9.4 mmol/L Normal [facility] Comment on above: Performed By: #### B MP #### [facility] [address] [place] [address] Dr. Darlene Lucero Calcium [Mass/Vol] 8.6 mg/dL Normal 8.5-10.1 [facility] [place] Comment on above: Performed By: #### B MP #### [facility] [address] [place] [address] Dr. Darlene Lucero Chloride [Moles/Vol] 97 mmol/L Critically low 98-107 [facility] Comment on above: Performed By: #### B MP #### [facility] [address] [address] [address] Darlene Lucero CO2 [Moles/Vol] 28.6 mmol/L Normal 21.0-32.0 [facility] Comment on above: Performed By: #### B MP #### [facility] [address] [address] [address] Darlnee Lucero Creatinine [Mass/Vol] 0.73 mg/dL Normal 0.55-1.02 [facility] Comment on above: Performed By: #### B MP #### [facility] [address] [address] [address] Darlene Lucero EGFR-AF MALIAN >60 Normal >=60 [facility] Comment on above: Performed By: #### B MP #### [facility] [address] [place] [address] Dr. Darlene Lucero EGFR-NON AF MALIAN >60 Normal >=60 [facility] Comment on above: Performed By: #### B MP #### [facility] [address] [address] [address] Darlene Lucero Glucose [Mass/Vol] 172 mg/dL Critically high 74-106 [facility] Comment on above: Performed By: #### B MP #### [facility] [address] [address] [address] Darlene Lucero Potassium [Moles/Vol] 4.0 mmol/L Normal 3.5-5.1 [facility] Comment on above: Performed By: #### B MP #### [facility] [address] [address] [address] Darlene Lucero Sodium [Moles/Vol] 131 mmol/L Critically low 136-145 [facility] Comment on above: Performed By: #### B MP #### [facility] [address] [place] [address] Dr. Darlene Lucero Urea nitrogen [Mass/Vol] 19.0 mg/dL Critically high 7.0-18.0 [facility] Comment on above: Performed By: #### B MP #### [facility] [address] [address] [address] Darlene Lucero Urea nitrogen/Creatinine [Mass ratio] 26.0 mg/mg Normal [facility] Comment on above: Performed By: #### B MP #### [facility] [address] [place] [address] Dr. Darlene Lucero Anion gap [Moles/Vol] 10.3 mmol/L Normal [facility] Comment on above: Performed By: #### B MP #### [facility] [address] [address] [address] Darlene Lucero Calcium [Mass/Vol] 8.4 mg/dL Critically low 8.5-10.1 [facility] Comment on above: Performed By: #### B MP #### [facility] [facility] [address] [address] [address] Darlene Lucero Chloride [Moles/Vol] 90 mmol/L Critically low 98-107 [facility] Comment on above: Performed By: #### B MP #### [facility] [address] [address] [address] Darlene Lucero CO2 [Moles/Vol] 28.0 mmol/L Normal 21.0-32.0 [facility] Comment on above: Performed By: #### B MP #### [facility] [address] [place] [address] Dr. Darlene Lucero Creatinine [Mass/Vol] 0.69 mg/dL Normal 0.55-1.02 [facility] Comment on above: Performed By: #### B MP #### [facility] [address] [address] [address] Darlene Lucero EGFR-AF MALIAN >60 Normal >=60 [facility] Comment on above: Performed By: #### B MP #### [facility] [address] [address] [address] Darlene Lucero EGFR-NON AF MALIAN >60 Normal >=60 [facility] Comment on above: Performed By: #### B MP #### [facility] [address] [place] [address] Dr. Darlene Lucero Glucose [Mass/Vol] 95 mg/dL Normal 74-106 [facility] Comment on above: Performed By: #### B MP #### [facility] [address] [address] [address] Darlene Lucero Potassium [Moles/Vol] 3.3 mmol/L Critically low 3.5-5.1 [facility] Comment on above: Performed By: #### B MP #### [facility] [address] [address] [address] Darlene Lucero Sodium [Moles/Vol] 125 mmol/L Critically low 136-145 [facility] Comment on above: Performed By: #### B MP #### [facility] [address] [address] [address] Darlene Lucero Urea nitrogen [Mass/Vol] 18.0 mg/dL Normal 7.0-18.0 [facility] Comment on above: Performed By: #### B MP #### [facility] [address] [address] [address] Darlene Lucero Urea nitrogen/Creatinine [Mass ratio] 26.1 mg/mg Normal [facility] Comment on above: Performed By: #### B MP #### [facility] [address] [address] [address] Darlene Lucero Anion gap [Moles/Vol] 9.0 mmol/L Normal [facility] Comment on above: Performed By: #### O SMOU #### [facility] [address] [address] [address] Darlene Lucero Calcium [Mass/Vol] 8.3 mg/dL Critically low 8.5-10.1 [facility] Comment on above: Performed By: #### O SMOU #### [facility] [address] [address] [address] Darlene Lucero Chloride [Moles/Vol] 92 mmol/L Critically low 98-107 [facility] Comment on above: Performed By: #### O SMOU #### [facility] [address] [address] [address] Darlene Lucero CO2 [Moles/Vol] 28.8 mmol/L Normal 21.0-32.0 [facility] Comment on above: Performed By: #### O SMOU #### [facility] [address] [address] [address] Darlene Lucero Creatinine [Mass/Vol] 0.65 mg/dL Normal 0.55-1.02 [facility] Comment on above: Performed By: #### O SMOU #### [facility] [address] [address] [address] Darlene Lucero EGFR-AF MALIAN >60 Normal >=60 [facility] Comment on above: Performed By: #### O SMOU #### [facility] [address] [address] [address] Darlene Lucero EGFR-NON AF MALIAN >60 Normal >=60 [facility] Comment on above: Performed By: #### O SMOU #### [facility] [address] [place] [address] Dr. Darlene Lucero Glucose [Mass/Vol] 89 mg/dL Normal 74-106 [facility] Comment on above: Performed By: #### O SMOU #### [facility] [address] [place] [address] Dr. Darlene Lucero Potassium [Moles/Vol] 3.8 mmol/L Normal 3.5-5.1 [facility] Comment on above: Performed By: #### O SMOU #### [facility] [address] [place] [address] Dr. Darlene Lucero Sodium [Moles/Vol] 126 mmol/L Critically low 136-145 [facility] Comment on above: Performed By: #### O SMOU #### [facility] [address] [place] [address] Dr. Darlene Lucero Urea nitrogen [Mass/Vol] 19.0 mg/dL Critically high 7.0-18.0 [facility] Comment on above: Performed By: #### O SMOU #### [facility] [address] [place] [address] Dr. Darlene Lucero Urea nitrogen/Creatinine [Mass ratio] 29.2 mg/mg Normal [facility] Comment on above: Performed By: #### O SMOU #### [facility] [address] [address] [address] Darlene Lucero Anion gap [Moles/Vol] 9.0 mmol/L Normal [facility] Comment on above: Performed By: #### O SMOU #### [facility] [address] [place] [address] Dr. Darlene Lucero Calcium [Mass/Vol] 8.2 mg/dL Critically low 8.5-10.1 [facility] Comment on above: Performed By: #### O SMOU #### [facility] [address] [place] [address] Dr. Darlene Lucero Chloride [Moles/Vol] 92 mmol/L Critically low 98-107 [facility] Comment on above: Performed By: #### O SMOU #### [facility] [address] [place] [address] Dr. Darlene Lucero CO2 [Moles/Vol] 26.8 mmol/L Normal 21.0-32.0 [facility] Comment on above: Performed By: #### O SMOU #### [facility] [address] [place] [address] Dr. Darlene Lucero Creatinine [Mass/Vol] 0.68 mg/dL Normal 0.55-1.02 [facility] Comment on above: Performed By: #### O SMOU #### [facility] [address] [place] [address] Dr. Darlene Lucero EGFR-AF MALIAN >60 Normal >=60 [facility] Comment on above: Performed By: #### O SMOU #### [facility] [address] [place] [address] Dr. Darlene Lucero EGFR-NON AF MALIAN >60 Normal >=60 [facility] Comment on above: Performed By: #### O SMOU #### [facility] [address] [place] [address] Dr. Darlene Lucero Glucose [Mass/Vol] 94 mg/dL Normal 74-106 [facility] Comment on above: Performed By: #### O SMOU #### [facility] [address] [place] [address] Dr. Darlene Lucero Potassium [Moles/Vol] 3.8 mmol/L Normal 3.5-5.1 [facility] Comment on above: Performed By: #### O SMOU #### [facility] [address] [place] [address] Dr. Darlene Lucero Sodium [Moles/Vol] 124 mmol/L Critically low 136-145 Th e [facility] Comment on above: Result Comment: repe ated Performed By: #### O SMOU #### [facility] [address] [place] [address] Dr. Darlene Lucero Urea nitrogen [Mass/Vol] 20.0 mg/dL Critically high 7.0-18.0 [facility] Comment on above: Performed By: #### O SMOU #### [facility] [address] [place] [address] Dr. Darlene Lucero Urea nitrogen/Creatinine [Mass ratio] 29.4 mg/mg Normal [facility] Comment on above: Performed By: #### O SMOU #### [facility] [address] [place] [address] Dr. Darlene Lucero CBC AUTO DIFFon 09-02-2021 BASO # 0.0 103/ul Normal 0.0-0.1 [facility] Comment on above: Performed By: #### B MP #### [facility] [address] [place] [address] Dr. Darlene Lucero Basophils/100 WBC (Bld) 0.1 % Critically low 0.2-2.0 [facility] Comment on above: Performed By: #### B MP #### [facility] [address] [place] [address] Dr. Darlene Lucero EO # 0.0 103/ul Normal 0.0-0.7 [facility] Comment on above: Performed By: #### B MP #### [facility] [address] [place] [address] Dr. Darlene Lucero Eosinophils/100 WBC (Bld) 0.0 % Critically low 0.9-7.0 [facility] Comment on above: Performed By: #### B MP #### [facility] [address] [place], [place] [id number] Dr. Darlene Lucero Erythrocyte distribution width (RBC) [Ratio] 12.0 % Normal 11.0-15.0 [facility] Comment on above: Performed By: #### B MP #### [facility] [address] [place] [address] Dr. Darlene Lucero Hematocrit (Bld) [Volume fraction] 35.1 % Critically low 36.0-48.0 [facility] Comment on above: Performed By: #### B MP #### [facility] [address] [place] [address] Dr. Darlene Lucero Hemoglobin (Bld) [Mass/Vol] 11.9 g/dL Critically low 12.0-16.0 [facility] Comment on above: Performed By: #### B MP #### [facility] [address] [place] [address] Dr. Darlene Lucero IG # 0.04 10e3/ul Critically high 0.00-0.03 [facility] Comment on above: Performed By: #### B MP #### [facility] [address] [place] [address] Dr. Darlene Lucero IG % 0.4 % Normal 0.0-0.5 [facility] Comment on above: Performed By: #### B MP #### [facility] [address] [place] [address] Dr. Darlene Lucero LYMPH # 1.0 103/ul Critically low 1.2-3.8 [facility] Comment on above: Performed By: #### B MP #### [facility] [address] [place] [address] Dr. Darlene Lucero Lymphocytes/100 WBC (Bld) 10.6 % Critically low 20.5-60.0 [facility] Comment on above: Performed By: #### B MP #### [facility] [address] [place] [address] Dr. Darlene Lucero MANUAL DIFF REQ NO Normal [facility] Comment on above: Performed By: #### B MP #### [facility] [address] [place] [address] Dr. Darlene Lucero MCH (RBC) [Entitic mass] 29.4 pg Normal 26.7-34.0 [facility] Comment on above: Performed By: #### B MP #### [facility] [address] [place] [address] Dr. Darlene Lucero MCHC (RBC) [Mass/Vol] 33.9 g/dL Normal 29.9-35.2 [facility] Comment on above: Performed By: #### B MP #### [facility] [address] [address] [address] Darlene Lucero MCV (RBC) [Entitic vol] 86.7 fL Normal 81.0-99.0 [facility] Comment on above: Performed By: #### B MP #### [facility] [address] [place] [address] Dr. Darlene Lucero MONO # 1.1 103/ul Critically high 0.3-0.8 [facility] Comment on above: Performed By: #### B MP #### [facility] [address] [place] [address] Dr. Darlene Lucero Monocytes/100 WBC (Bld) 12.1 % Critically high 1.7-12.0 [facility] Comment on above: Performed By: #### B MP #### [facility] [address] [place] [address] Dr. Darlene Lucero NEUT # 6.9 103/ul Critically high 1.4-6.5 [facility] Comment on above: Performed By: #### B MP #### [facility] [address] [place] [address] Dr. Darlene Lucero Neutrophils/100 WBC (Bld) 76.8 % Critically high 43.0-75.0 [facility] Comment on above: Performed By: #### B MP #### [facility] [address] [place] [address] Dr. Darlene Lucero Platelet mean volume (Bld) [Entitic vol] 8.1 fL Critically low 9.5-13.5 [facility] Comment on above: Performed By: #### B MP #### [facility] [address] [address] [address] Darlene Lucero PLT 498 103/ul Critically high 150-450 [facility] Comment on above: Performed By: #### B MP #### [facility] [address] [address] [address] Darlene Lucero RBC 4.05 106/ul Critically low 4.20-5.40 [facility] Comment on above: Performed By: #### B MP #### [facility] [address] [address] [address] Darlene Lucero WBC 9.0 103/ul Normal 4.0-11.0 [facility] Comment on above: Performed By: #### B MP #### [facility] [address] [place] [address] Dr. Darlene Lucero OSMOLALITY URINEon 2 Osmolality, Urine 522 mOsmol/kg Normal [facility] Comment on above: Result Comment: 24 h r : 300 - 900 Random: 50 - 1400 After 12hr fluid restriction: >850 Performed By: #### O SMOU #### [facility] [address] [address] [address] Darlene Lucero POINT OF CARE GLUCOSEon 08-15 Glucose [Mass/Vol] 146 mg/dL Critically high 74-106 [facility] Comment on above: Performed By: #### O SMOU #### [facility] [address] [place] [address] Dr. Darlene Lucero Glucose [Mass/Vol] 151 mg/dL Critically high 74-106 [facility] Comment on above: Performed By: #### B MP #### [facility] [address] [place] [address] Dr. Darlene Lucero Glucose [Mass/Vol] 123 mg/dL Critically high -106 [facility] Comment on above: Performed By: #### B MP #### [facility] [address] [place] [address] Dr. Darlene Lucero Glucose [Mass/Vol] 153 mg/dL Critically high 74-106 [facility] Comment on above: Performed By: #### B MP #### [facility] [address] [address] [address] Darlene Lucero PROF CHEM 8 (BAS METB)on Anion gap [Moles/Vol] 10.1 mmol/L Normal [facility] Comment on above: Performed By: #### B MP #### [facility] [address] [address] [address] Darlene Lucero Calcium [Mass/Vol] 8.4 mg/dL Critically low 8.5-10.1 [facility] Comment on above: Performed By: #### B MP #### [facility] [address] [address] [address] Darlene Lucero Chloride [Moles/Vol] 90 mmol/L Critically low 98-107 [facility] Comment on above: Performed By: #### B MP #### [facility] [address] [place] [address] Dr. Darlene Lucero CO2 [Moles/Vol] 27.4 mmol/L Normal 21.0-32.0 [facility] Comment on above: Performed By: #### B MP #### [facility] [address] [place] [address] Dr. Darlene Lucero Creatinine [Mass/Vol] 0.82 mg/dL Normal 0.55-1.02 [facility] Comment on above: Performed By: #### B MP #### [facility] [address] [place] [address] Dr. Darlene Lucero EGFR-AF MALIAN >60 Normal >=60 [facility] Comment on above: Performed By: #### B MP #### [facility] [address] [place] [address] Dr. Darlene Lucero EGFR-NON AF MALIAN >60 Normal >=60 [facility] Comment on above: Performed By: #### B MP #### [facility] [address] [place] [address] Dr. Darlene Lucero Glucose [Mass/Vol] 120 mg/dL Critically high 74-106 [facility] Comment on above: Performed By: #### B MP #### [facility] [address] [address] [address] Darlene Lucero Potassium [Moles/Vol] 3.5 mmol/L Normal 3.5-5.1 [facility] Comment on above: Performed By: #### B MP #### [facility] [address] [place] [address] Dr. Darlene Lucero Sodium [Moles/Vol] 124 mmol/L Critically low 136-145 [facility] Comment on above: Result Comment: repe ated Performed By: #### B MP #### [facility] [address] [place] [address] Dr. Darlene Lucero Urea nitrogen [Mass/Vol] 20.0 mg/dL Critically high 7.0-18.0 [facility] Comment on above: Performed By: #### B MP #### [facility] [address] [place] [address] Dr. Darlene Lucero Urea nitrogen/Creatinine [Mass ratio] 24.4 mg/mg Normal [facility] Comment on above: Performed By: #### B MP #### [facility] [address] [place] [address] Dr. Darlene Lucero Anion gap [Moles/Vol] 11.7 mmol/L Normal [facility] Comment on above: Performed By: #### O SMOU #### [facility] [address] [place] [address] Dr. Darlene Lucero Calcium [Mass/Vol] 8.5 mg/dL Normal 8.5-10.1 [facility] Comment on above: Performed By: #### O SMOU #### [facility] [address] [place] [address] Dr. Darlene Lucero Chloride [Moles/Vol] 89 mmol/L Critically low 98-107 [facility] Comment on above: Performed By: #### O SMOU #### [facility] [address] [address] [address] Darlene Lucero CO2 [Moles/Vol] 25.2 mmol/L Normal 21.0-32.0 [facility] Comment on above: Performed By: #### O SMOU #### [facility] [address] [place] [address] Dr. Darlene Lucero Creatinine [Mass/Vol] 0.76 mg/dL Normal 0.55-1.02 [facility] Comment on above: Performed By: #### O SMOU #### [facility] [address] [place] [address] Dr. Darlene Lucero EGFR-AF MALIAN >60 Normal >=60 [facility] Comment on above: Performed By: #### O SMOU #### [facility] [address] [place] [address] Dr. Darlene Lucero EGFR-NON AF MALIAN >60 Normal >=60 [facility] Comment on above: Performed By: #### O SMOU #### [facility] [address] [place] [address] Dr. Darlene Lucero Glucose [Mass/Vol] 140 mg/dL Critically high 74-106 [facility] Comment on above: Performed By: #### O SMOU #### [facility] [address] [place] [address] Dr. Darlene Lucero Potassium [Moles/Vol] 3.9 mmol/L Normal 3.5-5.1 [facility] Comment on above: Performed By: #### O SMOU #### [facility] [address] [place] [address] Dr. Darlene Lucero Sodium [Moles/Vol] 122 mmol/L Critically low 136-145 [facility] Comment on above: Performed By: #### O SMOU #### [facility] [address] [place] [address] Dr. Darlene Lucero Urea nitrogen [Mass/Vol] 16.0 mg/dL Normal 7.0-18.0 [facility] Comment on above: Performed By: #### O SMOU #### [facility] [address] [place] [address] Dr. Darlene Lucero Urea nitrogen/Creatinine [Mass ratio] 21.1 mg/mg Normal [facility] Comment on above: Performed By: #### O SMOU #### [facility] [address] [place] [address] Dr. Darlene Lucero Anion gap [Moles/Vol] 9.2 mmol/L Normal [facility] Comment on above: Performed By: #### O SMOU #### [facility] [address] [place] [address] Dr. Darlene Lucero Calcium [Mass/Vol] 8.3 mg/dL Critically low 8.5-10.1 [facility] Comment on above: Performed By: #### O SMOU #### [facility] [address] [place] [address] Dr. Darlene Lucero Chloride [Moles/Vol] 88 mmol/L Critically low 98-107 [facility] Comment on above: Performed By: #### O SMOU #### [facility] [address] [place] [address] Dr. Darlene Lucero CO2 [Moles/Vol] 27.8 mmol/L Normal 21.0-32.0 [facility] Comment on above: Performed By: #### O SMOU #### [facility] [address] [place] [address] Dr. Darlene Lucero Creatinine [Mass/Vol] 0.78 mg/dL Normal 0.55-1.02 [facility] Comment on above: Performed By: #### O SMOU #### [facility] [address] [place] [address] Dr. Darlene Lucero EGFR-AF MALIAN >60 Normal >=60 [facility] Comment on above: Performed By: #### O SMOU #### [facility] [address] [place] [address] Dr. Darlene Lucero EGFR-NON AF MALIAN >60 Normal >=60 [facility] Comment on above: Performed By: #### O SMOU #### [facility] [address] [place] [address] Dr. Darlene Lucero Glucose [Mass/Vol] 148 mg/dL Critically high 74-106 [facility] Comment on above: Performed By: #### O SMOU #### [facility] [address] [place] [address] Dr. Darlene Lucero Potassium [Moles/Vol] 4.0 mmol/L Normal 3.5-5.1 [facility] Comment on above: Performed By: #### O SMOU #### [facility] [address] [address] [address] Darlene Lucero Sodium [Moles/Vol] 122 mmol/L Critically low 136-145 [facility] Comment on above: Performed By: #### O SMOU #### [facility] [address] [address] [address] Darlene Lucero Urea nitrogen [Mass/Vol] 15.0 mg/dL Normal 7.0-18.0 [facility] Comment on above: Performed By: #### O SMOU #### [facility] [address] [address] [address] Darlene Lucero Urea nitrogen/Creatinine [Mass ratio] 19.2 mg/mg Normal [facility] Comment on above: Performed By: #### O SMOU #### [facility] [address] [address] [address] Darlene Lucero Anion gap [Moles/Vol] 9.1 mmol/L Normal [facility] Comment on above: Performed By: #### B MP #### [facility] [address] [address] [address] Darlene Lucero Calcium [Mass/Vol] 8.3 mg/dL Critically low 8.5-10.1 [facility] Comment on above: Performed By: #### B MP #### [facility] [address] [address] [address] Darlene Lucero Chloride [Moles/Vol] 86 mmol/L Critically low 98-107 [facility] Comment on above: Performed By: #### B MP #### [facility] [address] [address] [address] Darlene Lucero CO2 [Moles/Vol] 27.9 mmol/L Normal 21.0-32.0 [facility] Comment on above: Performed By: #### B MP #### [facility] [address] [address] [address] Darlene Lucero Creatinine [Mass/Vol] 0.78 mg/dL Normal 0.55-1.02 [facility] Comment on above: Performed By: #### B MP #### [facility] [address] [address] [address] Darlene Lucero EGFR-AF MALIAN >60 Normal >=60 [facility] Comment on above: Performed By: #### B MP #### [facility] [address] [address] [address] Darlene Lucero EGFR-NON AF MALIAN >60 Normal >=60 [facility] Comment on above: Performed By: #### B MP #### [facility] [address] [address] [address] Darlene Lucero Glucose [Mass/Vol] 106 mg/dL Normal 74-106 [facility] Comment on above: Performed By: #### B MP #### [facility] [address] [address] [address] Darlene Lucero Potassium [Moles/Vol] 4.0 mmol/L Normal 3.5-5.1 [facility] Comment on above: Performed By: #### B MP #### [facility] [address] [address] [address] Darlene Lucero Sodium [Moles/Vol] 119 mmol/L Critically low 136-145 [facility] Comment on above: Performed By: #### B MP #### [facility] [address] [address] [address] Darlene Lucero Urea nitrogen [Mass/Vol] 14.0 mg/dL Normal 7.0-18.0 [facility] Comment on above: Performed By: #### B MP #### [facility] [address] [address] [address] Darlene Lucero Urea nitrogen/Creatinine [Mass ratio] 17.9 mg/mg Normal [facility] Comment on above: Performed By: #### B MP #### [facility] [address] [address] [address] Darlene Lucero Anion gap [Moles/Vol] 11.7 mmol/L Normal [facility] Comment on above: Performed By: #### B MP #### [facility] Laboratory [address] [address] [address] Darlene Lucero Calcium [Mass/Vol] 8.5 mg/dL Normal 8.5-10.1 The [place] Comment on above: Performed By: #### B MP #### [facility] [address] [address] [address] Darlene Lucero Chloride [Moles/Vol] 85 mmol/L Critically low 98-107 [facility] Comment on above: Performed By: #### B MP #### [facility] [address] [address] [address] Darlene Lucero CO2 [Moles/Vol] 25.9 mmol/L Normal 21.0-32.0 [facility] Comment on above: Performed By: #### B MP #### [facility] [address] [place] [address] Dr. Darlene Lucero Creatinine [Mass/Vol] 0.85 mg/dL Normal 0.55-1.02 [facility] Comment on above: Performed By: #### B MP #### [facility] [address] [place] [address] Dr. Darlene Lucero EGFR-AF MALIAN >60 Normal >=60 [facility] Comment on above: Performed By: #### B MP #### [facility] [address] [address] [address] Darlene Lucero EGFR-NON AF MALIAN >60 Normal >=60 [facility] Comment on above: Performed By: #### B MP #### [facility] [address] [address] [address] Darlene Lucero Glucose [Mass/Vol] 105 mg/dL Normal 74-106 [facility] [place] Comment on above: Performed By: #### B MP #### [facility] [address] [address] [address] Darlene Lucero Potassium [Moles/Vol] 3.6 mmol/L Normal 3.5-5.1 [facility] Comment on above: Performed By: #### B MP #### [facility] [address] [address] [address] Darlene Lucero Sodium [Moles/Vol] 119 mmol/L Critically low 136-145 Th e [facility] Comment on above: Result Comment: repe ated Performed By: #### B MP #### [facility] [address] [place] [address] Dr. Darlene Lucero Urea nitrogen [Mass/Vol] 13.0 mg/dL Normal 7.0-18.0 [facility] Comment on above: Performed By: #### B MP #### [facility] [address] [address] [address] Darlene Lucero Urea nitrogen/Creatinine [Mass ratio] 15.3 mg/mg Normal [facility] Comment on above: Performed By: #### B MP #### [facility] [address] [address] [address] Darlene Lucero Anion gap [Moles/Vol] 11.3 mmol/L Normal [facility] Comment on above: Performed By: #### B MP #### [facility] [address] [place] [address] Dr. Darlene Lucero Calcium [Mass/Vol] 8.2 mg/dL Critically low 8.5-10.1 Th [facility] Comment on above: Performed By: #### B MP #### [facility] [address] [place] [address] Dr. Darlene Lucero Chloride [Moles/Vol] 85 mmol/L Critically low 98-107 [facility] Comment on above: Performed By: #### B MP #### [facility] [address] [address] [address] Darlene Lucero CO2 [Moles/Vol] 27.2 mmol/L Normal 21.0-32.0 [facility] Comment on above: Performed By: #### B MP #### [facility] [address] [address] [address] Darlene Lucero Creatinine [Mass/Vol] 0.89 mg/dL Normal 0.55-1.02 [facility] Comment on above: Performed By: #### B MP #### [facility] [address] [address] [address] Darlene Lucero EGFR-AF MALIAN >60 Normal >=60 [facility] Comment on above: Performed By: #### B MP #### [facility] [address] [address] [address] Darlene Lucero EGFR-NON AF MALIAN >60 Normal >=60 [facility] Comment on above: Performed By: #### B MP #### [facility] [address] [address] [address] Darlene Lucero Glucose [Mass/Vol] 105 mg/dL Normal 74-106 [facility] Comment on above: Performed By: #### B MP #### [facility] [address] [address] [address] Darlene Lucero Potassium [Moles/Vol] 3.5 mmol/L Normal 3.5-5.1 [facility] Comment on above: Performed By: #### B MP #### [facility] [address] [place] [address] Dr. Darlene Lucero Sodium [Moles/Vol] 120 mmol/L Critically low 136-145 Th [facility] Comment on above: Result Comment: repe ated Performed By: #### B MP #### [facility] [address] [place] [address] Dr. Darlene Lucero Urea nitrogen [Mass/Vol] 12.0 mg/dL Normal 7.0-18.0 [facility] Comment on above: Performed By: #### B MP #### [facility] [address] [place] [address] Dr. Darlene Lucero Urea nitrogen/Creatinine [Mass ratio] 13.5 mg/mg Normal [facility] Comment on above: Performed By: #### B MP #### [facility] [address] [address] [address] Darlene Lucero CBC AUTO DIFFon 09-01-2021 BASO # 0.0 103/ul Normal 0.0-0.1 [facility] Comment on above: Performed By: #### U WILLEM #### [facility] [address] [address] [address] Darlene Lucero Basophils/100 WBC (Bld) 0.1 % Critically low 0.2-2.0 [facility] Comment on above: Performed By: #### U WILLEM #### [facility] [address] [address] [address] Darlene Lucero EO # 0.0 103/ul Normal 0.0-0.7 [facility] Comment on above: Performed By: #### U WILLEM #### [facility] [address] [address] [address] Darlene Lucero Eosinophils/100 WBC (Bld) 0.0 % Critically low 0.9-7.0 [facility] Comment on above: Performed By: #### U WILLEM #### [facility] [address] [address] [address] Darlene Lucero Erythrocyte distribution width (RBC) [Ratio] 11.9 % Normal 11.0-15.0 [facility] Comment on above: Performed By: #### U WILLEM #### [facility] [address] [place] [address] Dr. Darlene Lucero Hematocrit (Bld) [Volume fraction] 36.0 % Normal 36.0-48.0 [facility] Comment on above: Performed By: #### U WILLEM #### [facility] [address] [place] [address] Dr. Darlene Lucero Hemoglobin (Bld) [Mass/Vol] 12.2 g/dL Normal 12.0-16.0 [facility] Comment on above: Performed By: #### U WILLEM #### [facility] [address] [address] [address] Darlene Lucero IG # 0.07 10e3/ul Critically high 0.00-0.03 [facility] Comment on above: Performed By: #### U WILLEM #### [facility] [address] [address] [address] Darlene Lucero IG % 0.6 % Critically high 0.0-0.5 [facility] Comment on above: Performed By: #### U WILLEM #### [facility] [address] [address] [address] Darlene Lucero LYMPH # 1.1 103/ul Critically low 1.2-3.8 The [facility] Comment on above: Performed By: #### U WILLEM #### [facility] [address] [address] [address] Darlene Lucero Lymphocytes/100 WBC (Bld) 9.2 % Critically low 20.5-60.0 [facility] Comment on above: Performed By: #### U WILLEM #### [facility] [address] [place] [address] Dr. Darlene Lucero MANUAL DIFF REQ NO Normal [facility] Comment on above: Performed By: #### U WILLEM #### [facility] [address] [place] [address] Dr. Darlene Lucero MCH (RBC) [Entitic mass] 29.5 pg Normal 26.7-34.0 [facility] Comment on above: Performed By: #### U WILLEM #### [facility] [address] [place] [address] Dr. Darlene Lucero MCHC (RBC) [Mass/Vol] 33.9 g/dL Normal 29.9-35.2 [facility] Comment on above: Performed By: #### U WILLEM #### [facility] [address] [place] [address] Dr. Darlene Lucero MCV (RBC) [Entitic vol] 87.0 fL Normal 81.0-99.0 [facility] Comment on above: Performed By: #### U WILLEM #### [facility] [address] [place] [address] Dr. Darlene Lucero MONO # 1.4 103/ul Critically high 0.3-0.8 [facility] Comment on above: Performed By: #### U WILLEM #### [facility] [address] [place] [address] Dr. Darlene Lucero Monocytes/100 WBC (Bld) 11.6 % Normal 1.7-12.0 [facility] Comment on above: Performed By: #### U WILLEM #### [facility] [address] [place] [address] Dr. Darlene Lucero NEUT # 9.1 103/ul Critically high 1.4-6.5 [facility] Comment on above: Performed By: #### U WILLEM #### [facility] [address] [address] [address] Darlene Lucero Neutrophils/100 WBC (Bld) 78.5 % Critically high 43.0-75.0 [facility] Comment on above: Performed By: #### U WILLEM #### [facility] [address] [address] [address] Darlene Lucero Platelet mean volume (Bld) [Entitic vol] 7.9 fL Critically low 9.5-13.5 [facility] Comment on above: Performed By: #### U WILLEM #### [facility] [address] [address] [address] Darlene Lucero PLT 447 103/ul Normal 150-450 [facility] Comment on above: Performed By: #### U WILLEM #### [facility] [address] [place] [address] Dr. Darlene Lucero RBC 4.14 106/ul Critically low 4.20-5.40 [facility] Comment on above: Performed By: #### U WILLEM #### [facility] [address] [address] [address] Darlene Lucero WBC 11.6 103/ul Critically high 4.0-11.0 [facility] Comment on above: Performed By: #### U WILLEM #### [facility] [address] [address] [address] Darlene Luc[facility]14 SARS-CoV-2 (COVID-19) RNA TASHA+probe Ql (Unsp spec) Detected Critically abnormal NOT DETECTED [facility] Comment on above: Result Comment: This test is not yet approved or cleared by the [place] FDA. When there are no FDA-approved or cleared tests available, and other criteria are met, FDA can make tests available under an emergency access mechanism called an Emergency Use Authorization (EUA). The EUA for this test is supported by the Asic Verification Engineer of Health and Human Service's (HHS's) declaration [...] used). Performed By: #### U WILLEM #### [facility] [address] [address] [address] Darlene Lucero PROF CHEM 8 (BAS METB)on Anion gap [Moles/Vol] 13.1 mmol/L Normal [facility] Comment on above: Performed By: #### B MP #### [facility] [address] [address] [address] Darlene Lucero Calcium [Mass/Vol] 8.4 mg/dL Critically low 8.5-10.1 [facility] Comment on above: Performed By: #### B MP #### [facility] [address] [place] [address] Dr. Darlene Lucero Chloride [Moles/Vol] 88 mmol/L Critically low 98-107 [facility] Comment on above: Performed By: #### B MP #### [facility] [address] [place] [address] Dr. Darlene Lucero CO2 [Moles/Vol] 24.0 mmol/L Normal 21.0-32.0 [facility] Comment on above: Performed By: #### B MP #### [facility] [address] [place] [address] Dr. Darlene Lucero Creatinine [Mass/Vol] 0.60 mg/dL Normal 0.55-1.02 [facility] Comment on above: Performed By: #### B MP #### [facility] [address] [place] [address] Dr. Darlene Lucero EGFR-AF MALIAN >60 Normal >=60 [facility] Comment on above: Performed By: #### B MP #### [facility] [address] [place] [address] Dr. Darlene Lucero EGFR-NON AF MALIAN >60 Normal >=60 [facility] Comment on above: Performed By: #### B MP #### [facility] [address] [address] [address] Darlene Lucero Glucose [Mass/Vol] 131 mg/dL Critically high 74-106 T [facility] Comment on above: Performed By: #### B MP #### [facility] [address] [address] [address] Darlene Lucero Potassium [Moles/Vol] 4.2 mmol/L Normal 3.5-5.1 [facility] Comment on above: Performed By: #### B MP #### [facility] [address] [address] [address] Darlene Lucero Sodium [Moles/Vol] 121 mmol/L Critically low 136-145 Th [facility] Comment on above: Result Comment: repe ated Performed By: #### B MP #### [facility] [address] [place] [address] Dr. Darlene Lucero Urea nitrogen [Mass/Vol] 11.0 mg/dL Normal 7.0-18.0 [facility] Comment on above: Performed By: #### B MP #### [facility] [address] [place] [address] Dr. Darlene Lucero Urea nitrogen/Creatinine [Mass ratio] 18.3 mg/mg Normal [facility] Comment on above: Performed By: #### B MP #### [facility] [address] [place] [address] Dr. Darlene Lucero Anion gap [Moles/Vol] 10.4 mmol/L Normal [facility] Comment on above: Performed By: #### U WILLEM #### [facility] [address] [place] [address] Dr. Darlene Lucero Calcium [Mass/Vol] 8.1 mg/dL Critically low 8.5-10.1 [facility] Comment on above: Performed By: #### U WILLEM #### [facility] [address] [place] [address] Dr. Darlene Lucero Chloride [Moles/Vol] 85 mmol/L Critically low 98-107 [facility] Comment on above: Performed By: #### U WILLEM #### [facility] [address] [place] [address] Dr. Darlene Lucero CO2 [Moles/Vol] 25.9 mmol/L Normal 21.0-32.0 [facility] Comment on above: Performed By: #### U WILLEM #### [facility] [address] [place] [address] Dr. Darlene Lucero Creatinine [Mass/Vol] 0.57 mg/dL Normal 0.55-1.02 [facility] Comment on above: Performed By: #### U WILLEM #### [facility] [address] [address] [address] Darlene Lucero EGFR-AF MALIAN >60 Normal >=60 [facility] Comment on above: Performed By: #### U WILLEM #### [facility] [address] [place] [address] Dr. Darlene Lucero EGFR-NON AF MALIAN >60 Normal >=60 [facility] Comment on above: Performed By: #### U WILLEM #### [facility] [address] [place] [address] Dr. Darlene Lucero Glucose [Mass/Vol] 139 mg/dL Critically high 74-106 T [facility] Comment on above: Performed By: #### U WILLEM #### [facility] [address] [place] [address] Dr. Darlene Lucero Potassium [Moles/Vol] 4.3 mmol/L Normal 3.5-5.1 [facility] Comment on above: Result Comment: SPEC IMEN SLIGHTLY HEMOLYZED MAY AFFECT K+ Performed By: #### U WILLEM #### [facility] [address] [place] [address] Dr. Darlene Lucero Sodium [Moles/Vol] 117 mmol/L Critically low 136-145 Th [facility] Comment on above: Result Comment: TEST REPEATED CRITICAL VALUE VERIFIED Performed By: #### U WILLEM #### [facility] [address] [place] [address] Dr. Darlene Lucero Urea nitrogen [Mass/Vol] 9.0 mg/dL Normal 7.0-18.0 [facility] Comment on above: Performed By: #### U WILLEM #### [facility] [address] [place] [address] Dr. Darlene Lucero Urea nitrogen/Creatinine [Mass ratio] 15.8 mg/mg Normal [facility] Comment on above: Performed By: #### U WILLEM #### [facility] [address] [place] [address] Dr. Darlene Lucero Anion gap [Moles/Vol] 12.9 mmol/L Normal [facility] Comment on above: Performed By: #### O SMOU #### [facility] [address] [place] [address] Dr. Darlene Lucero Calcium [Mass/Vol] 8.3 mg/dL Critically low 8.5-10.1 Th [facility] Comment on above: Performed By: #### O SMOU #### [facility] [address] [place] [address] Dr. Darlene Lucero Chloride [Moles/Vol] 84 mmol/L Critically low 98-107 [facility] Comment on above: Result Comment: test repeated critical value verified Performed By: #### O SMOU #### [facility] [address] [place] [address] Dr. Darlene Lucero CO2 [Moles/Vol] 25.1 mmol/L Normal 21.0-32.0 [facility] Comment on above: Performed By: #### O SMOU #### [facility] [address] [place] [address] Dr. Darlene Lucero Creatinine [Mass/Vol] 0.56 mg/dL Normal 0.55-1.02 [facility] Comment on above: Performed By: #### O SMOU #### [facility] [address] [place] [address] Dr. Darlene Lucero EGFR-AF MALIAN >60 Normal >=60 [facility] Comment on above: Performed By: #### O SMOU #### [facility] [address] [place] [address] Dr. Darlene Lucero EGFR-NON AF MALIAN >60 Normal >=60 [facility] Comment on above: Performed By: #### O SMOU #### [facility] [address] [place] [address] Dr. Darlene Lucero Potassium [Moles/Vol] 3.9 mmol/L Normal 3.5-5.1 [facility] Comment on above: Performed By: #### O SMOU #### [facility] [address] [place] [address] Dr. Darlene Lucero Sodium [Moles/Vol] 116 mmol/L Critically low 136-145 Th [facility] Comment on above: Result Comment: test repeated critical value verified Performed By: #### O SMOU #### [facility] [address] [place] [address] Dr. Darlene Lucero Urea nitrogen [Mass/Vol] 10.0 mg/dL Normal 7.0-18.0 [facility] Comment on above: Performed By: #### O SMOU #### [facility] [address] [place] [address] Dr. Darlene Lucero Urea nitrogen/Creatinine [Mass ratio] 17.9 mg/mg Normal [facility] Comment on above: Performed By: #### O SMOU #### [facility] [address] [place] [address] Dr. Darlene Lucero Anion gap [Moles/Vol] 11.9 mmol/L Normal [facility] Comment on above: Performed By: #### U WILLEM #### [facility] [address] [place] [address] Dr. Darlene Lucero Calcium [Mass/Vol] 8.4 mg/dL Critically low 8.5-10.1 [facility] Comment on above: Performed By: #### U WILLEM #### [facility] [address] [place] [address] Dr. Darlene Lucero Chloride [Moles/Vol] 81 mmol/L Critically low 98-107 [facility] Comment on above: Result Comment: TEST REPEATED CRITICAL VALUE VERIFIED Performed By: #### U WILLEM #### [facility] [address] [place] [address] Dr. Darlene Lucero CO2 [Moles/Vol] 27.8 mmol/L Normal 21.0-32.0 [facility] Comment on above: Performed By: #### U WILLEM #### [facility] [address] [place] [address] Dr. Darlene Lucero Creatinine [Mass/Vol] 0.60 mg/dL Normal 0.55-1.02 [facility] Comment on above: Performed By: #### U WILLEM #### [facility] [address] [place] [address] Dr. Darlene Lucero EGFR-AF MALIAN >60 Normal >=60 [facility] Comment on above: Performed By: #### U WILLEM #### [facility] [address] [address] [address] Darlene Lucero EGFR-NON AF MALIAN >60 Normal >=60 [facility] Comment on above: Performed By: #### U WILLEM #### [facility] [address] [place] [address] Dr. Darlene Lucero Glucose [Mass/Vol] 131 mg/dL Critically high 74-106 T [facility] Comment on above: Performed By: #### U WILLEM #### [facility] [address] [place] [address] Dr. Darlene Lucero Potassium [Moles/Vol] 3.7 mmol/L Normal 3.5-5.1 [facility] Comment on above: Performed By: #### U WILLEM #### [facility] [address] [place] [address] Dr. Darlene Lucero Sodium [Moles/Vol] 117 mmol/L Critically low 136-145 Th [facility] Comment on above: Result Comment: TEST REPEATED CRITICAL VALUE VERIFIED Performed By: #### U WILLEM #### [facility] [address] [place] [address] Dr. Darlene Lucero Urea nitrogen [Mass/Vol] 9.0 mg/dL Normal 7.0-18.0 [facility] Comment on above: Performed By: #### U WILLEM #### [facility] [address] [place] [address] Dr. Darlene Lucero Urea nitrogen/Creatinine [Mass ratio] 15.0 mg/mg Normal [facility] Comment on above: Performed By: #### U WILLEM #### [facility] [address] [place] [address] Dr. Darlene Lucero Anion gap [Moles/Vol] 10.9 mmol/L Normal [facility] Comment on above: Performed By: #### B MP #### [facility] [address] [address] [address] Darlene Lucero Calcium [Mass/Vol] 8.3 mg/dL Critically low 8.5-10.1 Th [facility] Comment on above: Performed By: #### B MP #### [facility] [address] [address] [address] Darlene Lucero Chloride [Moles/Vol] 87 mmol/L Critically low 98-107 [facility] Comment on above: Performed By: #### B MP #### [facility] [address] [place] [address] Dr. Darlene Lucero CO2 [Moles/Vol] 25.7 mmol/L Normal 21.0-32.0 [facility] Comment on above: Performed By: #### B MP #### [facility] [address] [place] [address] Dr. Darlene Lucero Creatinine [Mass/Vol] 0.69 mg/dL Normal 0.55-1.02 [facility] Comment on above: Performed By: #### B MP #### [facility] [address] [place] [address] Dr. Darlene Lucero EGFR-AF MALIAN >60 Normal >=60 [facility] Comment on above: Performed By: #### B MP #### [facility] [address] [place] [address] Dr. Darlene Lucero EGFR-NON AF MALIAN >60 Normal >=60 [facility] Comment on above: Performed By: #### B MP #### [facility] [address] [place] [address] Dr. Darlene Lucero Glucose [Mass/Vol] 139 mg/dL Critically high 74-106 [facility] Comment on above: Performed By: #### B MP #### [facility] [address] [place] [address] Dr. Darlene Lucero Potassium [Moles/Vol] 3.7 mmol/L Normal 3.5-5.1 [facility] Comment on above: Performed By: #### B MP #### [facility] [address] [address] [address] Darlene Lucero Sodium [Moles/Vol] 121 mmol/L Critically low 136-145 Th [facility] Comment on above: Result Comment: Test Repeated. Critical Value Verified Performed By: #### B MP #### [facility] [address] [address] [address] Darlene Lucero Urea nitrogen [Mass/Vol] 9.0 mg/dL Normal 7.0-18.0 [facility] Comment on above: Performed By: #### B MP #### [facility] [address] [address] [address] Darlene Lucero Urea nitrogen/Creatinine [Mass ratio] 13.0 mg/mg Normal [facility] Comment on above: Performed By: #### B MP #### [facility] [address] [place] [address] Dr. Darlene Lucero Anion gap [Moles/Vol] 12.7 mmol/L Normal [facility] Comment on above: Performed By: #### O SMOU #### [facility] [address] [address] [address] Darlene Lucero Calcium [Mass/Vol] 8.0 mg/dL Critically low 8.5-10.1 Th [facility] Comment on above: Performed By: #### O SMOU #### [facility] [address] [address] [address] Darlene Lucero Chloride [Moles/Vol] 87 mmol/L Critically low 98-107 [facility] Comment on above: Performed By: #### O SMOU #### [facility] [address] [address] [address] Darlene Lucero CO2 [Moles/Vol] 24.0 mmol/L Normal 21.0-32.0 [facility] Comment on above: Performed By: #### O SMOU #### [facility] [address] [address] [address] Darlene Lucero Creatinine [Mass/Vol] 0.52 mg/dL Critically low 0.55-1.02 [facility] Comment on above: Performed By: #### O SMOU #### [facility] [address] [address] [address] Darlene Lucero EGFR-AF MALIAN >60 Normal >=60 [facility] Comment on above: Performed By: #### O SMOU #### [facility] [address] [address] [address] Darlene Lucero EGFR-NON AF MALIAN >60 Normal >=60 [facility] Comment on above: Performed By: #### O SMOU #### [facility] [address] [address] [address] Darlene Lucero Glucose [Mass/Vol] 158 mg/dL Critically high 74-106 T [facility] Comment on above: Performed By: #### O SMOU #### [facility] [address] [place] [address] Dr. Darlene Lucero Potassium [Moles/Vol] 3.7 mmol/L Normal 3.5-5.1 [facility] Comment on above: Performed By: #### O SMOU #### [facility] [address] [place] [address] Dr. Darlene Lucero Sodium [Moles/Vol] 120 mmol/L Critically low 136-145 Th [facility] Comment on above: Result Comment: Test Repeated. Critical Value Verified Performed By: #### O SMOU #### [facility] [address] [place] [address] Dr. Darlene Lucero Urea nitrogen [Mass/Vol] 9.0 mg/dL Normal 7.0-18.0 [facility] Comment on above: Performed By: #### O SMOU #### [facility] [address] [place] [address] Dr. Darlene Lucero Urea nitrogen/Creatinine [Mass ratio] 17.3 mg/mg Normal [facility] Comment on above: Performed By: #### O SMOU #### [facility] [address] [place] [address] Dr. Darlene Lucero BNPon 08-31-2021 Natriuretic peptide B (Bld) [Mass/Vol] 898.0 pg/mL Normal <=900.0 [facility] Comment on above: Performed By: #### B MP #### [facility] [address] [address] [address] Darlene Lucero CBC AUTO DIFFon 08-31-2021 BASO # 0.0 103/ul Normal 0.0-0.1 [facility] Comment on above: Performed By: #### B MP #### [facility] [address] [place] [address] Dr. Darlene Lucero Basophils/100 WBC (Bld) 0.0 % Critically low 0.2-2.0 [facility] Comment on above: Performed By: #### B MP #### [facility] [address] [place] [address] Dr. Darlene Lucero EO # 0.0 103/ul Normal 0.0-0.7 [facility] Comment on above: Performed By: #### B MP #### [facility] [address] [place] [address] Dr. Darlene Lucero Eosinophils/100 WBC (Bld) 0.0 % Critically low 0.9-7.0 [facility] Comment on above: Performed By: #### B MP #### [facility] [address] [place] [address] Dr. Darlene Lucero Erythrocyte distribution width (RBC) [Ratio] 12.0 % Normal 11.0-15.0 [facility] Comment on above: Performed By: #### B MP #### [facility] [address] [place] [address] Dr. Darlene Lucero Hematocrit (Bld) [Volume fraction] 35.7 % Critically low 36.0-48.0 [facility] Comment on above: Performed By: #### B MP #### [facility] [address] [place] [address] Dr. Darlene Lucero Hemoglobin (Bld) [Mass/Vol] 12.5 g/dL Normal 12.0-16.0 [facility] Comment on above: Performed By: #### B MP #### [facility] [address] [place] [address] Dr. Darlene Lucero IG # 0.03 10e3/ul Normal 0.00-0.03 [facility] Comment on above: Performed By: #### B MP #### [facility] [address] [place] [address] Dr. Darlene Lucero IG % 0.4 % Normal 0.0-0.5 [facility] Comment on above: Performed By: #### B MP #### [facility] [address] [place] [address] Dr. Darlene Lucero LYMPH # 1.5 103/ul Normal 1.2-3.8 [facility] Comment on above: Performed By: #### B MP #### [facility] [address] [place] [address] Dr. Darlene Lucero Lymphocytes/100 WBC (Bld) 22.3 % Normal 20.5-60.0 [facility] Comment on above: Performed By: #### B MP #### [facility] [address] [place] [address] Dr. Darlene Lucero MANUAL DIFF REQ NO Normal [facility] Comment on above: Performed By: #### B MP #### [facility] [address] [place] [address] Dr. Darlene Lucero MCH (RBC) [Entitic mass] 29.6 pg Normal 26.7-34.0 [facility] Comment on above: Performed By: #### B MP #### [facility] [address] [place] [address] Dr. Darlene Lucero MCHC (RBC) [Mass/Vol] 35.0 g/dL Normal 29.9-35.2 [facility] Comment on above: Performed By: #### B MP #### [facility] [address] [place] [address] Dr. Darlene Lucero MCV (RBC) [Entitic vol] 84.6 fL Normal 81.0-99.0 [facility] Comment on above: Performed By: #### B MP #### [facility] [address] [place] [address] Dr. Darlene Lucero MONO # 0.8 103/ul Normal 0.3-0.8 [facility] Comment on above: Performed By: #### B MP #### [facility] [address] [address] [address] Darlene Lucero Monocytes/100 WBC (Bld) 11.5 % Normal 1.7-12.0 [facility] Comment on above: Performed By: #### B MP #### [facility] [address] [address] [address] Darlene Lucero NEUT # 4.5 103/ul Normal 1.4-6.5 [facility] Comment on above: Performed By: #### B MP #### [facility] [address] [address] [address] Darlene Lucero Neutrophils/100 WBC (Bld) 65.8 % Normal 43.0-75.0 [facility] Comment on above: Performed By: #### B MP #### [facility] [address] [place] [address] Dr. Darlene Lucero Platelet mean volume (Bld) [Entitic vol] 7.9 fL Critically low 9.5-13.5 [facility] Comment on above: Performed By: #### B MP #### [facility] [address] [address] [address] Darlene Lucero PLT 457 103/ul Critically high 150-450 [facility] Comment on above: Performed By: #### B MP #### [facility] [address] [place] [address] Dr. Darlene Lucero RBC 4.22 106/ul Normal 4.20-5.40 [facility] Comment on above: Performed By: #### B MP #### [facility] [address] [address] [address] Darlene Lucero WBC 6.9 103/ul Normal 4.0-11.0 [facility] Comment on above: Performed By: #### B MP #### [facility] [address] [place] [address] Dr. Darlene Lucero CREATININE URINEon 2 URINE CREAT 91.14 mg/dL Normal 20.00-300.00 [facility] Comment on above: Performed By: #### C REAU, DAPHNE #### [facility] [address] [place] [address] Dr. Darlene SEGUNDO URINE PROFILEon 2 Bilirubin Ql (U) Negative Normal NEGATIVE [facility] Comment on above: Performed By: #### U WILLEM #### [facility] [address] [place] [address] Dr. Darlene Lucero Clarity (U) CLEAR Normal CLEAR [facility] Comment on above: Performed By: #### U WILLEM #### [facility] [address] [place] [address] Dr. Darlene Lucero Color (U) LT. YELLOW Normal YELLOW [facility] Comment on above: Performed By: #### U WILLEM #### [facility] [address] [place] [address] Dr. Darlene BAKER A micrscopic examination will be performed if indicated. Normal [facility] Comment on above: Performed By: #### U WILLEM #### [facility] [address] [place] [address] Dr. Darlene Lucero Glucose Ql (U) Negative Normal NEGATIVE [facility] Comment on above: Performed By: #### U WILLEM #### [facility] [address] [place] [address] Dr. Darlene Lucero Hemoglobin Ql (U) TRACE-INTACT Abnormal NEGATIVE [facility] Comment on above: Performed By: #### U WILLEM #### [facility] [address] [place] [address] Dr. Darlene Lucero Ketones Ql (U) 15 mg/dl Abnormal NEGATIVE [facility] Comment on above: Performed By: #### U WILLEM #### [facility] [address] [place] [address] Dr. Darlene Lucero LEUKOCYTES Negative Normal NEGATIVE [facility] Comment on above: Performed By: #### U WILLEM #### [facility] [address] [place] [address] Dr. Darlene Lucero Nitrite Ql (U) Negative Normal NEGATIVE [facility] Comment on above: Performed By: #### U WILLEM #### [facility] [address] [place] [address] Dr. Darlene Lucero pH (U) 6.5 [pH] Normal 5-9 [facility] Comment on above: Performed By: #### U WILLEM #### [facility] [address] [place] [address] Dr. Darlene Lucero Protein (U) [Mass/Vol] 30 mg/dL Abnormal NEGATIVE/ TRACE [facility] Comment on above: Performed By: #### U WILLEM #### [facility] [address] [address] [address] Darlene Lucero SPEC GRAVITY 1.020 Normal 1.005-<=1.025 [facility] Comment on above: Performed By: #### U WILLEM #### [facility] [address] [place] [address] Dr. Darlene Lucero UR MICRO IND INDICATED Normal [facility] Comment on above: Performed By: #### U WILLEM #### [facility] [address] [place] [address] Dr. Darlene Lucero Urobilinogen Qn (U) 0.2 {Claudia'U}/dL Normal 0.2 - 1. 0 [facility] Comment on above: Performed By: #### U WILLEM #### [facility] [address] [place] [address] Dr. Darlene Lucero POINT OF CARE GLUCOSEon 08-14 Glucose [Mass/Vol] 147 mg/dL Critically high 74-106 T [facility] Comment on above: Performed By: #### B MP #### [facility] [address] [place] [address] Dr. Darlene Lucero PROF CHEM 8 (BAS METB)on Anion gap [Moles/Vol] 13.4 mmol/L Normal [facility] Comment on above: Performed By: #### U WILLEM #### [facility] [address] [place] [address] Dr. Darlene Lucero Calcium [Mass/Vol] 8.2 mg/dL Critically low 8.5-10.1 Th [facility] Comment on above: Performed By: #### U WILLEM #### [facility] [address] [address] [address] Darlene Lucero Chloride [Moles/Vol] 86 mmol/L Critically low 98-107 [facility] Comment on above: Performed By: #### U WILLEM #### [facility] [address] [address] [address] Darlene Lucero CO2 [Moles/Vol] 23.4 mmol/L Normal 21.0-32.0 [facility] Comment on above: Performed By: #### U WILLEM #### [facility] [address] [address] [address] Darlene Lucero Creatinine [Mass/Vol] 0.51 mg/dL Critically low 0.55-1.02 [facility] Comment on above: Performed By: #### U WILLEM #### [facility] [address] [address] [address] Darlene Lucero EGFR-AF MALIAN >60 Normal >=60 [facility] Comment on above: Performed By: #### U WILLEM #### [facility] [address] [address] [address] Darlene Lucero EGFR-NON AF MALIAN >60 Normal >=60 [facility] Comment on above: Performed By: #### U WILLEM #### [facility] [address] [address] [address] Darlene Lucero Glucose [Mass/Vol] 145 mg/dL Critically high 74-106 T [facility] Comment on above: Performed By: #### U WILLEM #### [facility] [address] [address] [address] Darlene Lucero Potassium [Moles/Vol] 3.8 mmol/L Normal 3.5-5.1 [facility] Comment on above: Performed By: #### U WILLEM #### [facility] [address] [address] [address] Darlene Lucero Sodium [Moles/Vol] 119 mmol/L Critically low 136-145 Th [facility] Comment on above: Result Comment: Test Repeated. Critical Value Verified Performed By: #### U WILLEM #### [facility] [address] [place] [address] Dr. Darlene Lucero Urea nitrogen [Mass/Vol] 11.0 mg/dL Normal 7.0-18.0 [facility] Comment on above: Performed By: #### U WILLEM #### [facility] [address] [address] [address] Darlene Lucero Urea nitrogen/Creatinine [Mass ratio] 21.6 mg/mg Normal [facility] Comment on above: Performed By: #### U WILLEM #### [facility] [address] [address] [address] Darlene Lucero Anion gap [Moles/Vol] 11.9 mmol/L Normal [facility] Comment on above: Performed By: #### B MP #### [facility] [address] [place] [address] Dr. Darlene Lucero Calcium [Mass/Vol] 8.0 mg/dL Critically low 8.5-10.1 Th [facility] Comment on above: Performed By: #### B MP #### [facility] [address] [address] [address] Darlene Lucero Chloride [Moles/Vol] 83 mmol/L Critically low 98-107 [facility] Comment on above: Performed By: #### B MP #### [facility] [address] [place] [address] Dr. Darlene Lucero CO2 [Moles/Vol] 24.9 mmol/L Normal 21.0-32.0 [facility] Comment on above: Performed By: #### B MP #### [facility] [address] [address] [address] Darlene Lucero Creatinine [Mass/Vol] 0.61 mg/dL Normal 0.55-1.02 [facility] Comment on above: Performed By: #### B MP #### [facility] [address] [place] [address] Dr. Darlene Lucero EGFR-AF MALIAN >60 Normal >=60 [facility] Comment on above: Performed By: #### B MP #### [facility] [address] [address] [address] Darlene Lucero EGFR-NON AF MALIAN >60 Normal >=60 [facility] Comment on above: Performed By: #### B MP #### [facility] [address] [address] [address] Darlene Lucero Glucose [Mass/Vol] 212 mg/dL Critically high 74-106 T [facility] Comment on above: Performed By: #### B MP #### [facility] [address] [address] [address] Darlene Lucero Potassium [Moles/Vol] 3.7 mmol/L Normal 3.5-5.1 [facility] Comment on above: Performed By: #### B MP #### [facility] [address] [address] [address] Darlene Lucero Sodium [Moles/Vol] 116 mmol/L Critically low 136-145 Th [facility] Comment on above: Performed By: #### B MP #### [facility] [address] [address] [address] Darlene Lucero Urea nitrogen [Mass/Vol] 12.0 mg/dL Normal 7.0-18.0 [facility] Comment on above: Performed By: #### B MP #### [facility] [address] [address] [address] Darlene Lucero Urea nitrogen/Creatinine [Mass ratio] 19.7 mg/mg Normal [facility] Comment on above: Performed By: #### B MP #### [facility] [address] [address] [address] Darlene Lucero Anion gap [Moles/Vol] 11.7 mmol/L Normal [facility] Comment on above: Performed By: #### B MP #### [facility] [address] [address] [address] Darlene Lucero Calcium [Mass/Vol] 8.0 mg/dL Critically low 8.5-10.1 Th [facility] Comment on above: Performed By: #### B MP #### [facility] [address] [address] [address] Darlene Lucero Chloride [Moles/Vol] 86 mmol/L Critically low 98-107 [facility] Comment on above: Performed By: #### B MP #### [facility] [address] [address] [address] Darlene Lucero CO2 [Moles/Vol] 27.6 mmol/L Normal 21.0-32.0 [facility] Comment on above: Performed By: #### B MP #### [facility] [address] [address] [address] Darlene Lucero Creatinine [Mass/Vol] 0.57 mg/dL Normal 0.55-1.02 [facility] Comment on above: Performed By: #### B MP #### [facility] [address] [address] [address] Darlene Lucero EGFR-AF MALIAN >60 Normal >=60 [facility] Comment on above: Performed By: #### B MP #### [facility] [address] [place] [address] Dr. Darlene Lucero EGFR-NON AF MALIAN >60 Normal >=60 [facility] Comment on above: Performed By: #### B MP #### [facility] [address] [address] [address] Darlene Lucero Glucose [Mass/Vol] 152 mg/dL Critically high 74-106 T [facility] Comment on above: Performed By: #### B MP #### [facility] [address] [place] [address] Dr. Darlene Lucero Potassium [Moles/Vol] 4.3 mmol/L Normal 3.5-5.1 [facility] Comment on above: Performed By: #### B MP #### [facility] [address] [address] [address] Darlene Lucero Sodium [Moles/Vol] 120 mmol/L Critically low 136-145 Th [facility] Comment on above: Performed By: #### B MP #### [facility] [address] [address] [address] Darlene Lucero Urea nitrogen [Mass/Vol] 12.0 mg/dL Normal 7.0-18.0 [facility] Comment on above: Performed By: #### B MP #### [facility] [address] [address] [address] Darlene Lucero Urea nitrogen/Creatinine [Mass ratio] 21.1 mg/mg Normal [facility] Comment on above: Performed By: #### B MP #### [facility] [address] [address] [address] Darlene Lucero Anion gap [Moles/Vol] 10.2 mmol/L Normal [facility] Comment on above: Performed By: #### B MP #### [facility] [address] [address] [address] Darlene Lucero Calcium [Mass/Vol] 8.6 mg/dL Normal 8.5-10.1 [facility] Comment on above: Performed By: #### B MP #### [facility] [address] [address] [address] Darlene Lucero Chloride [Moles/Vol] 78 mmol/L Critically low 98-107 [facility] Comment on above: Performed By: #### B MP #### [facility] [address] [address] [address] Darlene Lucero CO2 [Moles/Vol] 29.6 mmol/L Normal 21.0-32.0 [facility] Comment on above: Performed By: #### B MP #### [facility] [address] [place] [address] Dr. Darlene Lucero Creatinine [Mass/Vol] 0.70 mg/dL Normal 0.55-1.02 [facility] Comment on above: Performed By: #### B MP #### [facility] [address] [address] [address] Darlene Lucero EGFR-AF MALIAN >60 Normal >=60 [facility] Comment on above: Performed By: #### B MP #### [facility] [address] [address] [address] Darlene Lucero EGFR-NON AF MALIAN >60 Normal >=60 [facility] Comment on above: Performed By: #### B MP #### [facility] [address] [address] [address] Darlene Lucero Glucose [Mass/Vol] 116 mg/dL Critically high 74-106 T [facility] Comment on above: Performed By: #### B MP #### [facility] [address] [address] [address] Darlene Lucero Potassium [Moles/Vol] 3.8 mmol/L Normal 3.5-5.1 [facility] Comment on above: Performed By: #### B MP #### [facility] [address] [address] [address] Darlene Lucero Sodium [Moles/Vol] 114 mmol/L Critically low 136-145 Th [facility] Comment on above: Performed By: #### B MP #### [facility] [address] [address] [address] Darlene Lucero Urea nitrogen [Mass/Vol] 17.0 mg/dL Normal 7.0-18.0 [facility] Comment on above: Performed By: #### B MP #### [facility] [address] [address] [address] Darlene Lucero Urea nitrogen/Creatinine [Mass ratio] 24.3 mg/mg Normal [facility] Comment on above: Performed By: #### B MP #### [facility] [address] [address] [address] Darlene Lucero SODIUM RANDOM URINEon 2021 Sodium (U) [Moles/Vol] 61 mmol/L Normal 30-90 [facility] Comment on above: Performed By: #### U WILLEM #### [facility] [address] [address] [address] Darlene Lucero TROPONIN, HIGH SENSITIVITYon 08-31-2021 HSTROP 14.6 pg/mL Normal 4.0-51.3 [facility] Comment on above: Result Comment: CUT- OFF POINTS HAVE BEEN ESTABLISHED BASED ON THE FOURTH UNIVERSAL DEFINITIONS OF MYOCARDIAL INFARCTION. THE UPPER REFERENCE LIMIT (URL) OF TROPONIN, DEFINED THE 99TH PERCENTILE OF cTnI DISTRIBUTION IN A REFERENCE POPULATION, HAS BEEN CONFIRMED THE DECISION THRESHOLD FOR IN DIAGNOSIS. Performed By: #### B MP #### [facility] [address] [address] [address] Darlene Lucero TSHon 05-18-2022 TSH 1.053 uIU/mL Normal 0.358-3.740 [facility] Comment on above: Performed By: #### B MP #### [facility] [address] [place] [address] Dr. Darlene Lucero TSH RANGE SEE BELOW Normal [facility] Comment on above: Result Comment: <0.3 4 UIU/ml HYPERTHYROID 0.34-5.60 UIU/ml EUTHYROID >5.60 UIU/ml HYPOTHYROID Performed By: #### B MP #### [facility] [address] [place] [address] Dr. Darlene Lucero URIC ACID SERUMon 08-31-2021 Urate [Mass/Vol] 1.4 mg/dL Critically low 2.6-6.0 [facility] Comment on above: Performed By: #### U WILLEM #### [facility] [address] [place] [address] Dr. Darlene Lucero URINE MICROSCOPIC ONLYon BACTERIA NONE SEEN Normal NONE SEEN [facility] Comment on above: Performed By: #### O SMOU #### [facility] [address] [place] [address] Dr. Darlene Lucero Bacteria identified Cx Nom (U) NOT INDICATED Normal [facility] Comment on above: Performed By: #### O SMOU #### [facility] [address] [place] [address] Dr. Darlene Lucero CAST NONE SEEN Normal NONE SEEN [facility] Comment on above: Performed By: #### O SMOU #### [facility] [address] [place] [address] Dr. Darlene Lucero Crystals LM Nom (Urine sed) NONE SEEN Normal NONE SEEN [facility] Comment on above: Performed By: #### O SMOU #### [facility] [address] [place] [address] Dr. Darlene Lucero Epithelial cells LM Ql (Urine sed) FEW Abnormal NONE SEEN /RARE [facility] Comment on above: Performed By: #### O SMOU #### [facility] [address] [place] [address] Dr. Darlene Lucero MUCOUS TRACE Abnormal NONE SEEN [facility] Comment on above: Performed By: #### O SMOU #### [facility] [address] [address] [address] Darlene Lucero RBC 0-2 Normal 0-2 [facility] Comment on above: Performed By: #### O SMOU #### [facility] [address] [place], [place] [address] Dr. Darlene Lucero WBC NONE SEEN Normal NONE SEEN [facility] Comment on above: Performed By: #### O SMOU #### [facility] [address] [place] [address] Dr. Darlene Lucero URINE T PROTEIN CREAT RATIOo 08-31-2021 Protein (U) [Mass/Vol] 67.7 mg/dL Critically high <=12.0 [facility] Comment on above: Performed By: #### B MP #### [facility] [address] [place] [address] Dr. Darlene Lucero UR PROT CREAT RAT 0.75 Normal [facility] Comment on above: Performed By: #### B MP #### [facility] [address] [place] [address] Dr. Darlene Lucero URINE CREAT 89.84 mg/dL Normal 20.00-300.00 [facility] Comment on above: Performed By: #### B MP #### [facility] [address] [place] [address] Dr. Darlene Lucero XR CHEST 1 Von [...] by: CHAYITO SOLIS Date: 2021-08-31 09:07 Normal [facility] Encounters Encounter Date Encounter Type Care Provider Facility Start: 08-24-2023 End: 08-24-2023 ambulatory FLACO RESENDIZ Not Available Start: 06-01-2023 End: 06-01-2023 ambulatory FLACO RESENDIZ [...] Office Visit [facility] [address] [place] [address] [place] [id number] Flaco Resendiz MD [address] [facility] [address] [place] [address] [facility] Immunizations Immunization Date Immunization Notes Care Provider Fa cility 01-13-2022 Influenza, High-dose Seasonal, Quadrivalent, Preservative Free Flaco Resendiz MD Work Phone: [facility] 01-29-2021 Influenza, High-dose Seasonal, Quadrivalent, Preservative Free Flaco Resendiz MD Work Phone: [facility] 02-28-2020 influenza, high dose seasonal, preservative-free Flaco Resendiz MD Work Phone: [facility] 02-28-2020 zoster vaccine recombinant D cailin Resendiz MD Work Phone: [facility] 01-12-2019 influenza, high dose seasonal, preservative-free Flaco Resendiz MD Work Phone: [facility] 12-07-2017 Influenza, High-dose Seasonal, Quadrivalent, Preservative Free Flaco Resendiz MD Work Phone: [facility] 12-18-2016 influenza, high dose seasonal, preservative-free Flaco Resendiz MD Work Phone: [facility] 03-22-2016 pneumococcal conjuga te vaccine, 13 valevelyn Resendiz MD Work Phone: [facility] 03-15-2016 influenza, injectabl e, quadrivalent, preservative free Flaco Resendiz MD Work Phone: [facility] 02-15-2015 influenza, injectabl e, quadrivalent, preservative free Flaco Resendiz MD Work Phone: [facility] 04-30-2012 pneumococcal polysaccharide vaccine, 23 meaghan Resendiz MD Work Phone: [facility] 01-14-2010 seasonal influenza, intradermal, preservative free Flaco Resendiz MD Work Phone: [facility] Payers Date Payer Category Payer Medicare MEDICARE MEDICAR E RAILROAD [id number] 1999-Present [employer] MEDICARE [address] [address] [place] [address] Medicare [id number] 1959 Medicare [id number] 1945 Unknown [id number] 1946 Unknown [id number] 1946 Unknown [id number] 1946 Unknown [id number] 1946 Unknown [id number] 1946 Unknown [id number] 1946 Unknown [id number] 1946 Unknown [id number] [id number] 9 1946 Unknown [id number] 9 1946 Unknown [id number] 9 Social History Date Type Detail Facility Start: 09-27-2022 Tobacco smoking status [facility] Ex-smoke r [facility] End: 09-25-2018 History of tobacco use Current smoker [facility] End: 09-25-2018 History of tobacco use Cigarette Smoker [facility] Start: 09-27-2022 End: 01-01-2023 Cigarettes smoked current (pack per day) - Reported 0.5 [facility] Start: 09-27-2022 Tobacco use and exposure Smoke less tobacco non-user [facility] Start: 03-02-2023 Alcohol intake Lifetime non-d richar (finding) [facility] Start: 01-01-2023 End: 03-02-2023 Humiliation, Afraid, Rape, and Kick questionnaire [HARK] [facility] Within the last year , have you been afraid of your partner or ex-partner? No [facility] Are you now , , , [...] and content) DATE CREATED AUTHOR 08/12/2022 [facility] DATE CREATED AUTHOR AUTHOR'S ORGANIZ ATION 08/26/2023 [facility] [employer] Care Teams (unrecognized sec tion and content) [employer] Start Date End Date Flaco Resendiz MD [address] [address] PCP - ACO Reach 09/07/22 Flaco Resendiz MD [address] [facility] [address] [place] [address] PCP - General Internal Medicine 09/27/22 FOR [...] BE BASED ON THE PRIMARY CLINICAL RECORDS. [facility] [employer] [facility] provides no warranty or guarantee of the accuracy or completeness of information in this document.
[2023-11-30 07:37] LABS: Basophils Percent Auto 0.4 % (0.2-2.0); Eosinophils Absolute Auto 0.2 10^3/uL (0.0-0.7); Eosinophils Percent Auto 3.2 % (0.9-7.0); Hematocrit 35.8 % (36.0-48.0); Hemoglobin 11.4 g/dL (12.0-16.0); Immature Granulocytes Abs Auto 0.01 10^3/uL (0.00-0.03); Immature Granulocytes Pct Auto 0.2 % (0.0-0.5); Lymphocytes Absolute Auto 1.7 10^3/uL (1.2-3.8); Lymphocytes Percent Auto 34.3 % (20.5-60.0); Mean Corpuscular HGB Conc 31.8 g/dL (29.9-35.2); Mean Corpuscular Hemoglobin 28.9 pg (26.7-34.0); Mean Corpuscular Volume 90.9 fL (81.0-99.0); Mean Platelet Volume 8.7 fL (9.5-13.5); Monocytes Absolute Auto 0.5 10^3/uL (0.3-0.8); Monocytes Percent Auto 10.8 % (1.7-12.0); Neutrophils Absolute Auto 2.5 10^3/uL (1.4-6.5); Neutrophils Percent Auto 51.1 % (43.0-75.0); Platelet Count 382 10^3/uL (150-450); Red Blood Count 3.94 10^6/uL (4.20-5.40); Red Cell Distribution Width 12.6 % (11.0-15.0); White Blood Count 4.9 10^3/uL (4.0-11.0)
[2023-11-30 08:38] LABS: Alanine Aminotransferase 19 U/L (14-59); Albumin Level 3.5 g/dL (3.4-5.0); Alkaline Phosphatase 63 U/L (46-116); Aspartate Amino Transferase 12 U/L (15-37); BUN Creatinine Ratio 29.7; Bilirubin Total 0.4 mg/dL (0.2-1.0); Calcium 9.1 mg/dL (8.5-10.1); Chloride 97 mmol/L (98-107); Chol HDL Ratio 3.2; Cholesterol 279 mg/dL (<=200); Estimated GFR (African America >60 (>=60); Estimated GFR (Non-African Ame >60 (>=60); Globulin 3.5 g/dL; Glucose 93 mg/dL (74-106); HDL Cholesterol 86 mg/dL (40-60); Potassium 4.6 mmol/L (3.5-5.1); Sodium 134 mmol/L (136-145); Triglycerides 101 mg/dL (<=150); VLDL CHOLESTEROL 20.2 mg/dL
[2023-11-30 08:43] LABS: Anion Gap 11.6
[2023-11-30 08:50] LABS: Free T4 1.29 ng/dL (0.76-1.46)
== END 2023-11-30 07:23 | disposition home or self-care (01) ==
LOC: LAB 07:23
PROVIDERS: PCP Internal Medicine; Visit Provider Internal Medicine
DX: E87.1 Hypo-osmolality and hyponatremia (principal); I10 Essential (primary) hypertension; E78.00 Pure hypercholesterolemia, unspecified; E89.0 Postprocedural hypothyroidism
CPT/HCPCS: 36415; 80053; 80061; 84439; 84443; 85025

== ENCOUNTER 2024-03-21 07:31 | Outpatient (OUT) | payer MEDICARE, SELFPAY ==
--- OUTSIDE RECORDS SUMMARY | 2024-03-21 07:34 | XMS_ITS | CCD ---
Author Organization [facility] Inform ion Partnership [facility] Care Team Providers Care Wood Room Supervisor Name Role Phone CHERY ., DR OLENA Damon Admitting Unavailable CHERY ., DR OLENA Damon Attending Unavailable CHERY ., DR OLENA Damon Consulting Unavailable RESENDIZ, DR YI Primary Care Unavailable HAY ., DR RUIZ Consulting Unavailable IRMA, CHAYITO Consulting Unavailable FAWWAD, SHAIKH Valentino Consulting Unavailable SINGHANIA, MARCIE Consulting Unavailable HOFFERT, CHERI Consulting Unavailable LISSETTE, DR YI Admitting Unavailable LISSETTE, DR YI Consulting Unavailable LISSETTE, DR YI Attending Unavailable RESENDIZ, DR YI Primary Care Unavailable RESENDIZ, DR YI Attending Unavailable RESENDIZ, DR YI Consulting Unavailable LISSETTE, DR YI Primary Care Unavailable LISSETTE, DR YI Admitting Unavailable RESENDIZ, DR YI Attending Unavailable RESENDIZ, DR YI Consulting Unavailable RESENDIZ, DR YI Primary Care Unavailable RESENDIZ, DR YI Admitting Unavailable RESENDIZ, DR YI Admitting Unavailable RESENDIZ, DR YI Attending Unavailable RESENDIZ, DR YI Consulting Unavailable LISSETTE, DR YI Primary Care Unavailable LISSETTE, DR YI Admitting Unavailable LISSETTE, DR YI Attending Unavailable LISSETTE, DR YI Consulting Unavailable LISSETTE, DR YI Primary Care Unavailable RESENDIZ, DR YI Admitting Unavailable RESENDIZ, DR YI Attending Unavailable RESENDIZ, DR YI Consulting Unavailable LISSETTE, DR YI Primary Care Unavailable Flaco Resendiz MD Unavailable Flaco Resendiz MD Primary Care Provider FLACO RESENDIZ Attending Unavailable FLACO RESENDIZ Attending Unavailable FLACO RESENDIZ Attending Unavailable FLACO RESENDIZ Attending Unavailable Allergies Allergy Classification Reported Allergen(s) Allergy Type Date of Onset Reaction(s) Facility (1 source) Gentamicin Drug Allergy 02-28-2021 Unknown [facility] Medications Current Medications Medication Drug Class(es) Dates Sig (Normalized) Sig (Original) [id number] actuat albuterol 0.09 mg/actuat metered dose [...] same time. 0 Active polyethylene glycol 3350 75487 mg powder for oral solution (1 source) [...] 09-07-2021 Episodic Other aftercare (1 source) Other [facility] (current) drug therapy; Translations: [OTH ASSISTED CURRENT DRUG THERAPY] Onset: 09-07-2021 Episodic Other [...] PANELon 05-18-2023 Anion gap [Moles/Vol] 9.7 mmol/L [facility] Calcium [Mass/Vol] 9.2 mg/dL 8.5 - 10. 1 mg/dL [facility] Chloride [Moles/Vol] 99 mmol/L 98 - 107 mmol/L [facility] CO2 [Moles/Vol] 31.4 mmol/L 21.0 - 32.0 mmol/L [facility] Creatinine [Mass/Vol] 0.63 mg/dL 0.55 - 1.02 mg/dL [facility] GFR/1.73 sq M.predicted CKD-EPI (S/P/Bld) [Vol rate/Area] >60 60 - PINF [facility] Glucose [Mass/Vol] 94 mg/dL 74 - 106 mg/dL [facility] Potassium [Moles/Vol] 4.1 mmol/L 3.5 - 5.1 mmol/L [facility] Sodium [Moles/Vol] 136 mmol/L 136 - 145 mmol/L [facility] TBH EGFR-NON AF SWEDISH >60 60 - PINF [facility] Urea nitrogen [Mass/Vol] 18.0 mg/dL 7.0 - 18.0 mg/dL [facility] Urea nitrogen/Creatinine [Mass ratio] 28.6 mg/mg [facility] PROF CHEM 8 (BAS METB)on Anion gap [Moles/Vol] 6.9 mmol/L Normal [facility] Comment on above: Performed By: #### B MP #### [facility] [address] [address] [address] Darlene Lucero Calcium [Mass/Vol] 9.1 mg/dL Normal 8.5-10.1 [facility] Comment on above: Performed By: #### B MP #### [facility] [address] [address] [address] Darlene Lucero Chloride [Moles/Vol] 96 mmol/L Critically low 98-107 [facility] Comment on above: Performed By: #### B MP #### [facility] [address] [address] [address] Darlene Lucero CO2 [Moles/Vol] 33.6 mmol/L Critically high 21.0-32.0 [facility] Comment on above: Performed By: #### B MP #### [facility] [address] [address] [address] Darlene Lucero Creatinine [Mass/Vol] 0.69 mg/dL Normal 0.55-1.02 [facility] Comment on above: Performed By: #### B MP #### [facility] [address] [address] [address] Darlene Lucero EGFR-AF SWEDISH >60 Normal >=60 [facility] Comment on above: Performed By: #### B MP #### [facility] [address] [address] [address] Darlene Lucero EGFR-NON AF SWEDISH >60 Normal >=60 [facility] Comment on above: Performed By: #### B MP #### [facility] [address] [address] [address] Darlene Lucero Glucose [Mass/Vol] 92 mg/dL Normal 74-106 [facility] Comment on above: Performed By: #### B MP #### [facility] [address] [address] [address] Darlene Lucero Potassium [Moles/Vol] 4.5 mmol/L Normal 3.5-5.1 [facility] Comment on above: Performed By: #### B MP #### [facility] [address] [address] [address] Darlene Lucero Sodium [Moles/Vol] 132 mmol/L Critically low 136-145 [facility] Comment on above: Performed By: #### B MP #### [facility] [address] [address] [address] Darlene Lucero Urea nitrogen [Mass/Vol] 18.0 mg/dL Normal 7.0-18.0 [facility] Comment on above: Performed By: #### B MP #### [facility] [address] [place] [address] Dr. Darlene Lucero Urea nitrogen/Creatinine [Mass ratio] 26.1 mg/mg Normal [facility] Comment on above: Performed By: #### B MP #### [facility] [address] [address] [address] Darlene Lucero PROF CHEM 8 (BAS METB)on Anion gap [Moles/Vol] 7.1 mmol/L Normal [facility] Comment on above: Performed By: #### B MP #### [facility] [address] [address] [address] Darlene Lucero Calcium [Mass/Vol] 9.4 mg/dL Normal 8.5-10.1 [facility] Comment on above: Performed By: #### B MP #### [facility] [address] [address] [address] Darlene Lucero Chloride [Moles/Vol] 95 mmol/L Critically low 98-107 [facility] Comment on above: Performed By: #### B MP #### [facility] [address] [address] [address] Darlene Lucero CO2 [Moles/Vol] 34.3 mmol/L Critically high 21.0-32.0 [facility] Comment on above: Performed By: #### B MP #### [facility] [address] [address] [address] Darlene Lucero Creatinine [Mass/Vol] 0.52 mg/dL Critically low 0.55-1.02 [facility] Comment on above: Performed By: #### B MP #### [facility] [address] [place] [address] Dr. Darlene Lucero EGFR-AF SWEDISH >60 Normal >=60 [facility] Comment on above: Performed By: #### B MP #### [facility] [address] [place] [address] Dr. Darlene Lucero EGFR-NON AF SWEDISH >60 Normal >=60 [facility] Comment on above: Performed By: #### B MP #### [facility] [address] [place] [address] Dr. Darlene Lucero Glucose [Mass/Vol] 111 mg/dL Critically high 74-106 [facility] Comment on above: Performed By: #### B MP #### [facility] [address] [address] [address] Darlene Lucero Potassium [Moles/Vol] 4.4 mmol/L Normal 3.5-5.1 [facility] Comment on above: Performed By: #### B MP #### [facility] [address] [place] [address] Dr. Darlene Lucero Sodium [Moles/Vol] 132 mmol/L Critically low 136-145 Th [facility] Comment on above: Performed By: #### B MP #### [facility] [address] [place] [address] Dr. Darlene Lucero Urea nitrogen [Mass/Vol] 16.0 mg/dL Normal 7.0-18.0 [facility] Comment on above: Performed By: #### B MP #### [facility] [address] [place] [address] Dr. Darlene Lucero Urea nitrogen/Creatinine [Mass ratio] 30.8 mg/mg Normal [facility] Comment on above: Performed By: #### B MP #### [facility] [address] [place] [address] Dr. Darlene Lucero PROF CHEM 8 (BAS METB)on Anion gap [Moles/Vol] 8.6 mmol/L Normal [facility] Comment on above: Performed By: #### O SMOU #### [facility] [address] [place] [address] Dr. Darlene Lucero Calcium [Mass/Vol] 9.3 mg/dL Normal 8.5-10.1 [facility] Comment on above: Performed By: #### O SMOU #### [facility] [address] [place] [address] Dr. Darlene Lucero Chloride [Moles/Vol] 94 mmol/L Critically low 98-107 [facility] Comment on above: Performed By: #### O SMOU #### [facility] [address] [place] [address] Dr. Darlene Lucero CO2 [Moles/Vol] 33.0 mmol/L Critically high 21.0-32.0 [facility] Comment on above: Performed By: #### O SMOU #### [facility] [address] [place] [address] Dr. Darlene Lucero Creatinine [Mass/Vol] 0.64 mg/dL Normal 0.55-1.02 [facility] Comment on above: Performed By: #### O SMOU #### [facility] [address] [place] [address] Dr. Darlene Lucero EGFR-AF SWEDISH >60 Normal >=60 [facility] Comment on above: Performed By: #### O SMOU #### [facility] [address] [place] [address] Dr. Darlene Lucero EGFR-NON AF SWEDISH >60 Normal >=60 [facility] Comment on above: Performed By: #### O SMOU #### [facility] [address] [address] [address] Darlene Lucero Glucose [Mass/Vol] 134 mg/dL Critically high 74-[address] [facility] Comment on above: Performed By: #### O SMOU #### [facility] [address] [address] [address] Darlene Lucero Potassium [Moles/Vol] 4.6 mmol/L Normal 3.5-5.1 [facility] Comment on above: Performed By: #### O SMOU #### [facility] [address] [place] [address] Dr. Darlene Lucero Sodium [Moles/Vol] 131 mmol/L Critically low 136-145 Th [facility] Comment on above: Performed By: #### O SMOU #### [facility] [address] [address] [address] Darlene Lucero Urea nitrogen [Mass/Vol] 10.0 mg/dL Normal 7.0-18.0 [facility] Comment on above: Performed By: #### O SMOU #### [facility] [address] [place] [address] Dr. Darlene Lucero Urea nitrogen/Creatinine [Mass ratio] 15.6 mg/mg Normal [facility] Comment on above: Performed By: #### O SMOU #### [facility] [address] [address] [address] Darlene Lucero PROF CHEM 8 (BAS METB)on Anion gap [Moles/Vol] 5.9 mmol/L Normal [facility] Comment on above: Performed By: #### B MP #### [facility] [address] [place] [address] Dr. Darlene Lucero Calcium [Mass/Vol] 9.0 mg/dL Normal 8.5-10.1 [facility] Comment on above: Performed By: #### B MP #### [facility] [address] [place] [address] Dr. Darlene Lucero Chloride [Moles/Vol] 96 mmol/L Critically low 98-107 [facility] Comment on above: Performed By: #### B MP #### [facility] [address] [address] [address] Darlene Lucero CO2 [Moles/Vol] 31.5 mmol/L Normal 21.0-32.0 [facility] Comment on above: Performed By: #### B MP #### [facility] [address] [address] [address] Darlene Lucero Creatinine [Mass/Vol] 0.57 mg/dL Normal 0.55-1.02 [facility] Comment on above: Performed By: #### B MP #### [facility] [address] [place] [address] Dr. Darlene Lucero EGFR-AF SWEDISH >60 Normal >=60 [facility] Comment on above: Performed By: #### B MP #### [facility] [address] [address] [address] Darlene Lucero EGFR-NON AF SWEDISH >60 Normal >=60 [facility] Comment on above: Performed By: #### B MP #### [facility] [address] [address] [address] Darlene Lucero Glucose [Mass/Vol] 94 mg/dL Normal 74-106 [facility] Comment on above: Performed By: #### B MP #### [facility] [address] [address] [address] Darlene Lucero Potassium [Moles/Vol] 4.4 mmol/L Normal 3.5-5.1 [facility] Comment on above: Performed By: #### B MP #### [facility] [address] [address] [address] Darlene Lucero Sodium [Moles/Vol] 129 mmol/L Critically low 136-145 Th [facility] Comment on above: Performed By: #### B MP #### [facility] [address] [address] [address] Darlene Lucero Urea nitrogen [Mass/Vol] 18.0 mg/dL Normal 7.0-18.0 [facility] Comment on above: Performed By: #### B MP #### [facility] [address] [place] [address] Dr. Darlene Lucero Urea nitrogen/Creatinine [Mass ratio] 31.6 mg/mg Normal [facility] Comment on above: Performed By: #### B MP #### [facility] [address] [place] [address] Dr. Darlene Lucero PROF 14(COMP METB)on 022 Albumin [Mass/Vol] 3.4 g/dL Normal 3.4-5.0 [facility] Comment on above: Performed By: #### B MP #### [facility] [address] [place] [address] Dr. Darlene Lucero Albumin/Globulin [Mass ratio] 0.9 {ratio} Normal [facility] Comment on above: Performed By: #### B MP #### [facility] [address] [place] [address] Dr. Darlene Lucero ALP [Catalytic activity/Vol] 63 U/L Normal 46-116 [facility] Comment on above: Performed By: #### B MP #### [facility] [address] [place] [address] Dr. Darlene Lucero ALT [Catalytic activity/Vol] 16 U/L Normal 14-59 [facility] Comment on above: Performed By: #### B MP #### [facility] [address] [place] [address] Dr. Darlene Lucero Anion gap [Moles/Vol] 11.5 mmol/L Normal [facility] Comment on above: Performed By: #### B MP #### [facility] [address] [place] [address] Dr. Darlene Lucero AST [Catalytic activity/Vol] 12 U/L Critically low 15-37 [facility] Comment on above: Performed By: #### B MP #### [facility] [address] [place] [address] Dr. Darlene Lucero Bilirubin [Mass/Vol] 0.3 mg/dL Normal 0.2-1.0 [facility] Comment on above: Performed By: #### B MP #### [facility] [address] [address] [address] Darlene Lucero Calcium [Mass/Vol] 8.9 mg/dL Normal 8.5-10.1 [facility] Comment on above: Performed By: #### B MP #### [facility] [address] [address] [address] Darlene Lucero Chloride [Moles/Vol] 96 mmol/L Critically low 98-107 [facility] Comment on above: Performed By: #### B MP #### [facility] [address] [address] [address] Darlene Lucero CO2 [Moles/Vol] 29.4 mmol/L Normal 21.0-32.0 [facility] Comment on above: Performed By: #### B MP #### [facility] [address] [address] [address] Darlene Lucero Creatinine [Mass/Vol] 0.70 mg/dL Normal 0.55-1.02 [facility] Comment on above: Performed By: #### B MP #### [facility] [address] [address] [address] Darlene Lucero EGFR-AF SWEDISH >60 Normal >=60 [facility] Comment on above: Performed By: #### B MP #### [facility] [address] [address] [address] Darlene Lucero EGFR-NON AF SWEDISH >60 Normal >=60 [facility] Comment on above: Performed By: #### B MP #### [facility] [address] [address] [address] Darlene Lucero Globulin (S) [Mass/Vol] 3.8 g/dL Normal [facility] Comment on above: Performed By: #### B MP #### [facility] [address] [address] [address] Darlene Lucero Glucose [Mass/Vol] 114 mg/dL Critically high 74-106 [facility] Comment on above: Performed By: #### B MP #### [facility] [address] [address] [address] Darlene Lucero Potassium [Moles/Vol] 3.9 mmol/L Normal 3.5-5.1 [facility] Comment on above: Performed By: #### B MP #### [facility] [address] [address] [address] Darlene Lucero Protein [Mass/Vol] 7.2 g/dL Normal 6.4-8.2 [facility] Comment on above: Performed By: #### B MP #### [facility] [address] [address] [address] Darlene Lucero Sodium [Moles/Vol] 133 mmol/L Critically low 136-145 [facility] Comment on above: Performed By: #### B MP #### [facility] [address] [place] [address] Dr. Darlene Lucero Urea nitrogen [Mass/Vol] 19.0 mg/dL Critically high 7.0-18.0 [facility] Comment on above: Performed By: #### B MP #### [facility] [address] [address] [address] Darlene Lucero Urea nitrogen/Creatinine [Mass ratio] 27.1 mg/mg Normal [facility] Comment on above: Performed By: #### B MP #### [facility] [address] [place] [address] Dr. Darlene Lucero PROF 14(COMP METB)on 022 Albumin [Mass/Vol] 3.2 g/dL Critically low 3.4-5.0 [facility] Comment on above: Performed By: #### B MP #### [facility] [address] [place] [address] Dr. Darlene Lucero Albumin/Globulin [Mass ratio] 0.9 {ratio} Normal [facility] Comment on above: Performed By: #### B MP #### [facility] [address] [address] [address] Darlene Lucero ALP [Catalytic activity/Vol] 60 U/L Normal 46-116 [facility] Comment on above: Performed By: #### B MP #### [facility] [address] [address] [address] Darlene Lucero ALT [Catalytic activity/Vol] 17 U/L Normal 14-59 [facility] Comment on above: Performed By: #### B MP #### [facility] [address] [place] [address] Dr. Darlene Lucero Anion gap [Moles/Vol] 8.0 mmol/L Normal [facility] Comment on above: Performed By: #### B MP #### [facility] [address] [address] [address] Darlene Lucero AST [Catalytic activity/Vol] 12 U/L Critically low 15-37 [facility] Comment on above: Performed By: #### B MP #### [facility] [address] [place] [address] Dr. Darlene Lucero Bilirubin [Mass/Vol] 0.4 mg/dL Normal 0.2-1.0 [facility] Comment on above: Performed By: #### B MP #### [facility] [address] [place] [address] Dr. Darlene Lucero Calcium [Mass/Vol] 9.4 mg/dL Normal 8.5-10.1 [facility] Comment on above: Performed By: #### B MP #### [facility] [address] [place] [address] Dr. Darlene Lucero Chloride [Moles/Vol] 96 mmol/L Critically low 98-107 [facility] Comment on above: Performed By: #### B MP #### [facility] [address] [address] [address] Darlene Lucero CO2 [Moles/Vol] 32.4 mmol/L Critically high 21.0-32.0 [facility] Comment on above: Performed By: #### B MP #### [facility] [address] [place] [address] Dr. Darlene Lucero Creatinine [Mass/Vol] 0.64 mg/dL Normal 0.55-1.02 [facility] Comment on above: Performed By: #### B MP #### [facility] [address] [place] [address] Dr. Darlene Lucero EGFR-AF SWEDISH >60 Normal >=60 [facility] Comment on above: Performed By: #### B MP #### [facility] [address] [address] [address] Darlene Lucero EGFR-NON AF SWEDISH >60 Normal >=60 [facility] Comment on above: Performed By: #### B MP #### [facility] [address] [address] [address] Darlene Lucero Globulin (S) [Mass/Vol] 3.7 g/dL Normal [facility] Comment on above: Performed By: #### B MP #### [facility] [address] [address] [address] Darlene Lucero Glucose [Mass/Vol] 63 mg/dL Critically low 74-106 [facility] [facility] Comment on above: Performed By: #### B MP #### [facility] [address] [address] [address] Darlene Lucero Potassium [Moles/Vol] 4.4 mmol/L Normal 3.5-5.1 [facility] Comment on above: Performed By: #### B MP #### [facility] [address] [address] [address] Darlene Lucero Protein [Mass/Vol] 6.9 g/dL Normal 6.4-8.2 [facility] Comment on above: Performed By: #### B MP #### [facility] [address] [address] [address] Darlene Lucero Sodium [Moles/Vol] 132 mmol/L Critically low 136-145 Th [facility] Comment on above: Performed By: #### B MP #### [facility] [address] [address] [address] Darlene Lucero Urea nitrogen [Mass/Vol] 16.0 mg/dL Normal 7.0-18.0 [facility] Comment on above: Performed By: #### B MP #### [facility] [address] [address] [address] Darlene Lucero Urea nitrogen/Creatinine [Mass ratio] 25.0 mg/mg Normal [facility] Comment on above: Performed By: #### B MP #### [facility] [address] [place] [address] Dr. Darlene Lucero OSMOLALITYon 09-07-2021 Osmolality [Osmolality] 268 mosm/kg Critically low 280-301 [facility] Comment on above: Performed By: #### U WILLEM #### [facility] [address] [place] [address] Dr. Darlene Lucero OSMOLALITY URINEon 2 Osmolality, Urine 565 mOsmol/kg Normal [facility] Comment on above: Result Comment: 24 h r : 300 - 900 Random: 50 - 1400 After 12hr fluid restriction: >850 Performed By: #### B MP #### [facility] [address] [place] [address] Dr. Darlene Lucero CBC AUTO DIFFon 09-05-2021 BASO # 0.0 103/ul Normal 0.0-0.1 [facility] Comment on above: Performed By: #### B MP #### [facility] [address] [place] [address] Dr. Darlene Lucero Basophils/100 WBC (Bld) 0.3 % Normal 0.2-2.0 [facility] Comment on above: Performed By: #### B MP #### [facility] [address] [place] [address] Dr. Darlene Lucero EO # 0.0 103/ul Normal 0.0-0.7 [facility] Comment on above: Performed By: #### B MP #### [facility] [address] [place] [address] Dr. Darlene Lucero Eosinophils/100 WBC (Bld) 0.1 % Critically low 0.9-7.0 [facility] Comment on above: Performed By: #### B MP #### [facility] [address] [place] [address] Dr. Darlene Lucero Erythrocyte distribution width (RBC) [Ratio] 12.9 % Normal 11.0-15.0 [facility] Comment on above: Performed By: #### B MP #### [facility] [address] [place] [address] Dr. Darlene Lucero Hematocrit (Bld) [Volume fraction] 32.5 % Critically low 36.0-48.0 [facility] Comment on above: Performed By: #### B MP #### [facility] [address] [place] [address] Dr. Darlene Lucero Hemoglobin (Bld) [Mass/Vol] 10.5 g/dL Critically low 12.0-16.0 [facility] Comment on above: Performed By: #### B MP #### [facility] [address] [place] [address] Dr. Darlene Lucero IG # 0.11 10e3/ul Critically high 0.00-0.03 [facility] Comment on above: Performed By: #### B MP #### [facility] [address] [place] [address] Dr. Darlene Lucero IG % 1.6 % Critically high 0.0-0.[address] [facility] Comment on above: Performed By: #### B MP #### [facility] [address] [place] [address] Dr. Darlene Lucero LYMPH # 1.5 103/ul Normal 1.2-3.8 [facility] Comment on above: Performed By: #### B MP #### [facility] [address] [place] [address] Dr. Darlene Lucero Lymphocytes/100 WBC (Bld) 22.4 % Normal 20.5-60.0 [facility] Comment on above: Performed By: #### B MP #### [facility] [address] [place] [address] Dr. Darlene Lucero MANUAL DIFF REQ NO Normal [facility] Comment on above: Performed By: #### B MP #### [facility] [address] [place] [address] Dr. Darlene Lucero MCH (RBC) [Entitic mass] 29.5 pg Normal 26.7-34.0 [facility] Comment on above: Performed By: #### B MP #### [facility] [address] [place] [address] Dr. Darlene Lucero MCHC (RBC) [Mass/Vol] 32.3 g/dL Normal 29.9-35.2 [facility] Comment on above: Performed By: #### B MP #### [facility] [address] [address] [address] Darlene Lucero MCV (RBC) [Entitic vol] 91.3 fL Normal 81.0-99.0 [facility] Comment on above: Performed By: #### B MP #### [facility] [address] [address] [address] Darlene Lucero MONO # 0.8 103/ul Normal 0.3-0.8 [facility] Comment on above: Performed By: #### B MP #### [facility] [address] [address] [address] Darlene Lucero Monocytes/100 WBC (Bld) 11.6 % Normal 1.7-12.0 [facility] Comment on above: Performed By: #### B MP #### [facility] [address] [address] [address] Darlene Lucero NEUT # 4.4 103/ul Normal 1.4-6.5 [facility] Comment on above: Performed By: #### B MP #### [facility] [address] [address] [address] Darlene Lucero Neutrophils/100 WBC (Bld) 64.0 % Normal 43.0-75.0 [facility] Comment on above: Performed By: #### B MP #### [facility] [address] [address] [address] Darlene Lucero Platelet mean volume (Bld) [Entitic vol] 8.1 fL Critically low 9.5-13.5 [facility] Comment on above: Performed By: #### B MP #### [facility] [address] [address] [address] Darlene Lucero PLT 571 103/ul Critically high 150-[address] [facility] Comment on above: Performed By: #### B MP #### [facility] [address] [address] [address] Darlene Lucero RBC 3.56 106/ul Critically low 4.20-5.[address] [facility] Comment on above: Performed By: #### B MP #### [facility] [address] [place] [address] Dr. Darlene Lucero WBC 6.9 103/ul Normal 4.0-11.0 [facility] Comment on above: Performed By: #### B MP #### [facility] [address] [place] [address] Dr. Darlene Lucero Covid-19 PCR (CVDTB)on 08-15 SARS-CoV-2 (COVID-19) RNA TASHA+probe Ql (Unsp spec) Detected Critically abnormal NOT DETECTED [facility] Comment on above: Result Comment: This test is not yet approved or cleared by the [place] FDA. When there are no FDA-approved or cleared tests available, and other criteria are met, FDA can make tests available under an emergency access mechanism called an Emergency Use Authorization (EUA). The EUA for this test is supported by the [place] of Health and Human Service's (HHS's) declaration [...] used). Performed By: #### B MP #### [facility] [address] [place] [address] Dr. Darlene Lucero PROF CHEM 8 (BAS METB)on Anion gap [Moles/Vol] 7.3 mmol/L Normal [facility] Comment on above: Performed By: #### B MP #### [facility] [address] [place] [address] Dr. Darlene Lucero Calcium [Mass/Vol] 8.5 mg/dL Normal 8.5-10.1 [facility] Comment on above: Performed By: #### B MP #### [facility] [address] [place] [address] Dr. Darlene Lucero Chloride [Moles/Vol] 101 mmol/L Normal 98-107 [facility] Comment on above: Performed By: #### B MP #### [facility] [address] [address] [address] Darlene Lucero CO2 [Moles/Vol] 31.6 mmol/L Normal 21.0-32.0 [facility] Comment on above: Performed By: #### B MP #### [facility] [address] [address] [address] Darlene Lucero Creatinine [Mass/Vol] 0.49 mg/dL Critically low 0.55-1.02 [facility] Comment on above: Performed By: #### B MP #### [facility] [address] [address] [address] Darlene Lucero EGFR-AF SWEDISH >60 Normal >=60 [facility] Comment on above: Performed By: #### B MP #### [facility] [address] [address] [address] Darlene Lucero EGFR-NON AF SWEDISH >60 Normal >=60 [facility] Comment on above: Performed By: #### B MP #### [facility] [address] [address] [address] Darlene Lucero Glucose [Mass/Vol] 88 mg/dL Normal 74-106 [facility] Comment on above: Performed By: #### B MP #### [facility] [address] [address] [address] Darlene Lucero Potassium [Moles/Vol] 3.9 mmol/L Normal 3.5-5.1 [facility] Comment on above: Performed By: #### B MP #### [facility] [address] [address] [address] Darlene Lucero Sodium [Moles/Vol] 136 mmol/L Normal 136-145 [facility] Comment on above: Performed By: #### B MP #### [facility] [address] [address] [address] Darlene Lucero Urea nitrogen [Mass/Vol] 15.0 mg/dL Normal 7.0-18.0 [facility] Comment on above: Performed By: #### B MP #### [facility] [address] [place] [address] Dr. Darlene Lucero Urea nitrogen/Creatinine [Mass ratio] 30.6 mg/mg Normal [facility] Comment on above: Performed By: #### B MP #### [facility] [address] [place] [address] Dr. Darlene Lucero CBC AUTO DIFFon 09-04-2021 BASO # 0.0 103/ul Normal 0.0-0.1 [facility] Comment on above: Performed By: #### O SMOU #### [facility] [address] [place] [address] Dr. Darlene Lucero Basophils/100 WBC (Bld) 0.2 % Normal 0.2-2.0 [facility] Comment on above: Performed By: #### O SMOU #### [facility] [address] [place] [address] Dr. Darlene Lucero EO # 0.0 103/ul Normal 0.0-0.7 [facility] Comment on above: Performed By: #### O SMOU #### [facility] [address] [place] [address] Dr. Darlene Lucero Eosinophils/100 WBC (Bld) 0.0 % Critically low 0.9-7.0 [facility] Comment on above: Performed By: #### O SMOU #### [facility] [address] [place] [address] Dr. Darlene Lucero Erythrocyte distribution width (RBC) [Ratio] 12.7 % Normal 11.0-15.0 [facility] Comment on above: Performed By: #### O SMOU #### [facility] [address] [place] [address] Dr. Darlene Lucero Hematocrit (Bld) [Volume fraction] 32.0 % Critically low 36.0-48.0 [facility] Comment on above: Performed By: #### O SMOU #### [facility] [address] [place] [address] Dr. Darlene Lucero Hemoglobin (Bld) [Mass/Vol] 10.4 g/dL Critically low 12.0-16.0 [facility] Comment on above: Performed By: #### O SMOU #### [facility] [address] [place] [address] Dr. Darlene Lucero IG # 0.07 10e3/ul Critically high 0.00-0.03 [facility] Comment on above: Performed By: #### O SMOU #### [facility] [address] [place] [address] Dr. Darlene Lucero IG % 1.1 % Critically high 0.0-0.5 [facility] Comment on above: Performed By: #### O SMOU #### [facility] [address] [place] [address] Dr. Darlene Lucero LYMPH # 1.4 103/ul Normal 1.2-3.8 [facility] Comment on above: Performed By: #### O SMOU #### [facility] [address] [place] [address] Dr. Darlene Lucero Lymphocytes/100 WBC (Bld) 21.9 % Normal 20.5-60.0 [facility] Comment on above: Performed By: #### O SMOU #### [facility] [address] [place] [address] Dr. Darlene Lucero MANUAL DIFF REQ NO Normal [facility] Comment on above: Performed By: #### O SMOU #### [facility] [address] [place] [address] Dr. Darlene Lucero MCH (RBC) [Entitic mass] 29.4 pg Normal 26.7-34.0 [facility] Comment on above: Performed By: #### O SMOU #### [facility] [address] [place] [address] Dr. Darlene Lucero MCHC (RBC) [Mass/Vol] 32.5 g/dL Normal 29.9-35.2 [facility] Comment on above: Performed By: #### O SMOU #### [facility] [address] [place] [address] Dr. Darlene Lucero MCV (RBC) [Entitic vol] 90.4 fL Normal 81.0-99.0 [facility] Comment on above: Performed By: #### O SMOU #### [facility] [address] [place] [address] Dr. Darlene Lucero MONO # 0.8 103/ul Normal 0.3-0.8 [facility] Comment on above: Performed By: #### O SMOU #### [facility] [address] [place] [address] Dr. Darlene Lucero Monocytes/100 WBC (Bld) 12.6 % Critically high 1.7-12.0 [facility] Comment on above: Performed By: #### O SMOU #### [facility] [address] [place] [address] Dr. Darlene Lucero NEUT # 4.2 103/ul Normal 1.4-6.5 [facility] Comment on above: Performed By: #### O SMOU #### [facility] [address] [place] [address] Dr. Darlene Lucero Neutrophils/100 WBC (Bld) 64.2 % Normal 43.0-75.0 [facility] Comment on above: Performed By: #### O SMOU #### [facility] [address] [place] [address] Dr. Darlene Lucero Platelet mean volume (Bld) [Entitic vol] 8.0 fL Critically low 9.5-13.5 [facility] Comment on above: Performed By: #### O SMOU #### [facility] [address] [place] [address] Dr. Darlene Lucero PLT 524 103/ul Critically high 150-[address] [facility] Comment on above: Performed By: #### O SMOU #### [facility] [address] [place] [address] Dr. Darlene Lucero RBC 3.54 106/ul Critically low 4.20-5.[address] [facility] Comment on above: Performed By: #### O SMOU #### [facility] [address] [place] [address] Dr. Darlene Lucero WBC 6.5 103/ul Normal 4.0-11.0 [facility] Comment on above: Performed By: #### O SMOU #### [facility] [address] [address] [address] Darlene Lucero POINT OF CARE GLUCOSEon 08-15 Glucose [Mass/Vol] 120 mg/dL Critically high 74-106 [facility] Comment on above: Performed By: #### U WILLEM #### [facility] [address] [address] [address] Darlene Lucero Glucose [Mass/Vol] 129 mg/dL Critically high 74-106 [facility] Comment on above: Performed By: #### P OCGLUC #### [facility] [address] [address] [address] Darlene Lucero Glucose [Mass/Vol] 111 mg/dL Critically high 74-106 [facility] Comment on above: Performed By: #### B MP #### [facility] [address] [place] [address] Dr. Darlene Lucero Glucose [Mass/Vol] 89 mg/dL Normal 74-106 [facility] Comment on above: Performed By: #### B MP #### [facility] [address] [address] [address] Darlene Lucero PROF CHEM 8 (BAS METB)on Anion gap [Moles/Vol] 8.0 mmol/L Normal [facility] Comment on above: Performed By: #### B MP #### [facility] [address] [address] [address] Darlene Lucero Calcium [Mass/Vol] 8.6 mg/dL Normal 8.5-10.1 [facility] Comment on above: Performed By: #### B MP #### [facility] [address] [place] [address] Dr. Darlene Lucero Chloride [Moles/Vol] 97 mmol/L Critically low 98-107 [facility] Comment on above: Performed By: #### B MP #### [facility] [address] [address] [address] Darlene Lucero CO2 [Moles/Vol] 31.6 mmol/L Normal 21.0-32.0 [facility] Comment on above: Performed By: #### B MP #### [facility] [address] [place] [address] Dr. Darlene Lucero Creatinine [Mass/Vol] 0.63 mg/dL Normal 0.55-1.02 [facility] Comment on above: Performed By: #### B MP #### [facility] [address] [place] [address] Dr. Darlene Lucero EGFR-AF SWEDISH >60 Normal >=60 [facility] Comment on above: Performed By: #### B MP #### [facility] [address] [address] [address] Darlene Lucero EGFR-NON AF SWEDISH >60 Normal >=60 [facility] Comment on above: Performed By: #### B MP #### [facility] [address] [place] [address] Dr. Darlene Lucero Glucose [Mass/Vol] 96 mg/dL Normal 74-106 [facility] Comment on above: Performed By: #### B MP #### [facility] [address] [place] [address] Dr. Darlene Lucero Potassium [Moles/Vol] 3.6 mmol/L Normal 3.5-5.1 [facility] Comment on above: Performed By: #### B MP #### [facility] [address] [place] [address] Dr. Darlene Lucero Sodium [Moles/Vol] 133 mmol/L Critically low 136-145 Th [facility] Comment on above: Performed By: #### B MP #### [facility] [address] [place] [address] Dr. Darlene Lucero Urea nitrogen [Mass/Vol] 18.0 mg/dL Normal 7.0-18.0 [facility] Comment on above: Performed By: #### B MP #### [facility] [address] [place] [address] Dr. Darlene Lucero Urea nitrogen/Creatinine [Mass ratio] 28.6 mg/mg Normal [facility] Comment on above: Performed By: #### B MP #### [facility] [address] [address] [address] Darlene Lucero CBC AUTO DIFFon 09-03-2021 BASO # 0.0 103/ul Normal 0.0-0.1 [facility] Comment on above: Performed By: #### B MP #### [facility] [address] [address] [address] Darlene Lucero Basophils/100 WBC (Bld) 0.0 % Critically low 0.2-2.0 [facility] Comment on above: Performed By: #### B MP #### [facility] [address] [address] [address] Darlene Lucero EO # 0.0 103/ul Normal 0.0-0.7 [facility] Comment on above: Performed By: #### B MP #### [facility] [address] [place] [address] Dr. Darlene Lucero Eosinophils/100 WBC (Bld) 0.0 % Critically low 0.9-7.0 [facility] Comment on above: Performed By: #### B MP #### [facility] [address] [address] [address] Darlene Lucero Erythrocyte distribution width (RBC) [Ratio] 12.3 % Normal 11.0-15.0 [facility] Comment on above: Performed By: #### B MP #### [facility] [address] [address] [address] Darlene Lucero Hematocrit (Bld) [Volume fraction] 32.1 % Critically low 36.0-48.0 [facility] Comment on above: Performed By: #### B MP #### [facility] [address] [address] [address] Darlene Lucero Hemoglobin (Bld) [Mass/Vol] 10.9 g/dL Critically low 12.0-16.0 [facility] Comment on above: Performed By: #### B MP #### [facility] [address] [address] [address] Darlene Lucero IG # 0.04 10e3/ul Critically high 0.00-0.03 [facility] Comment on above: Performed By: #### B MP #### [facility] [address] [place] [address] Dr. Darlene Lucero IG % 0.7 % Critically high 0.0-0.5 [facility] Comment on above: Performed By: #### B MP #### [facility] [address] [place] [address] Dr. Darlene Lucero LYMPH # 1.2 103/ul Normal 1.2-3.8 [facility] Comment on above: Performed By: #### B MP #### [facility] [address] [place] [address] Dr. Darlene Lucero Lymphocytes/100 WBC (Bld) 21.3 % Normal 20.5-60.0 [facility] Comment on above: Performed By: #### B MP #### [facility] [address] [place] [address] Dr. Darlene Lucero MANUAL DIFF REQ NO Normal [facility] Comment on above: Performed By: #### B MP #### [facility] [address] [place] [address] Dr. Darlene Lucero MCH (RBC) [Entitic mass] 29.9 pg Normal 26.7-34.0 [facility] Comment on above: Performed By: #### B MP #### [facility] [address] [place] [address] Dr. Darlene Lucero MCHC (RBC) [Mass/Vol] 34.0 g/dL Normal 29.9-35.2 The [facility] Comment on above: Performed By: #### B MP #### [facility] [address] [place] [address] Dr. Darlene Lucero MCV (RBC) [Entitic vol] 87.9 fL Normal 81.0-99.0 The [facility] Comment on above: Performed By: #### B MP #### [facility] [address] [place] [address] Dr. Darlene Lucero MONO # 1.0 103/ul Critically high 0.3-0.8 [facility] Comment on above: Performed By: #### B MP #### [facility] [address] [address] [address] Darlene Lucero Monocytes/100 WBC (Bld) 17.2 % Critically high 1.7-12.0 [facility] Comment on above: Performed By: #### B MP #### [facility] [address] [address] [address] Darlene Lucero NEUT # 3.5 103/ul Normal 1.4-6.5 The [facility] Comment on above: Performed By: #### B MP #### [facility] [address] [address] [address] Darlene Lucero Neutrophils/100 WBC (Bld) 60.8 % Normal 43.0-75.0 [facility] Comment on above: Performed By: #### B MP #### [facility] [address] [place] [address] Dr. Darlene Lucero Platelet mean volume (Bld) [Entitic vol] 8.1 fL Critically low 9.5-13.5 [facility] Comment on above: Performed By: #### B MP #### [facility] [address] [place] [address] Dr. Darlene Lucero PLT 499 103/ul Critically high 150-[address] [facility] Comment on above: Performed By: #### B MP #### [facility] [address] [place] [address] Dr. Darlene Lucero RBC 3.65 106/ul Critically low 4.20-5.[address] [facility] Comment on above: Performed By: #### B MP #### [facility] [address] [place] [address] Dr. Darlene Lucero WBC 5.8 103/ul Normal 4.0-11.0 The [facility] Comment on above: Performed By: #### B MP #### [facility] [address] [place] [address] Dr. Darlene Lucero Covid-19 PCR ([facility])on 08-15 SARS-CoV-2 (COVID-19) RNA TASHA+probe Ql (Unsp spec) Detected Critically abnormal NOT DETECTED The [facility] Comment on above: Result Comment: This test is not yet approved or cleared by the [place] FDA. When there are no FDA-approved or cleared tests available, and other criteria are met, FDA can make tests available under an emergency access mechanism called an Emergency Use Authorization (EUA). The EUA for this test is supported by the [place] of Health and Human Service's declaration that [...] used). Performed By: #### B MP #### [facility] [address] [place] [address] Dr. Darlene Lucero POINT OF CARE GLUCOSEon 08-15 Glucose [Mass/Vol] 131 mg/dL Critically high 74-106 [facility] Comment on above: Performed By: #### B MP #### [facility] [address] [place] [address] Dr. Darlene Lucero Glucose [Mass/Vol] 131 mg/dL Critically high 74-106 [facility] Comment on above: Performed By: #### B MP #### [facility] [address] [place] [address] Dr. Darlene Lucero PROF CHEM 8 (BAS METB)on Anion gap [Moles/Vol] 9.4 mmol/L Normal [facility] Comment on above: Performed By: #### B MP #### [facility] [address] [place] [address] Dr. Darlene Lucero Calcium [Mass/Vol] 8.6 mg/dL Normal 8.5-10.1 [facility] Comment on above: Performed By: #### B MP #### [facility] [address] [place] [address] Dr. Darlene Lucero Chloride [Moles/Vol] 97 mmol/L Critically low 98-107 [facility] Comment on above: Performed By: #### B MP #### [facility] [address] [address] [address] Darlene Lucero CO2 [Moles/Vol] 28.6 mmol/L Normal 21.0-32.0 [facility] Comment on above: Performed By: #### B MP #### [facility] [address] [address] [address] Darlene Lucero Creatinine [Mass/Vol] 0.73 mg/dL Normal 0.55-1.02 [facility] Comment on above: Performed By: #### B MP #### [facility] [address] [address] [address] Darlene Lucero EGFR-AF SWEDISH >60 Normal >=60 [facility] Comment on above: Performed By: #### B MP #### [facility] [address] [place] [address] Dr. Darlene Lucero EGFR-NON AF SWEDISH >60 Normal >=60 [facility] Comment on above: Performed By: #### B MP #### [facility] [address] [address] [address] Darlene Lucero Glucose [Mass/Vol] 172 mg/dL Critically high 74-[address] [facility] Comment on above: Performed By: #### B MP #### [facility] [address] [address] [address] Darlene Lucero Potassium [Moles/Vol] 4.0 mmol/L Normal 3.5-5.1 [facility] Comment on above: Performed By: #### B MP #### [facility] [address] [address] [address] Darlene Lucero Sodium [Moles/Vol] 131 mmol/L Critically low 136-145 Th [facility] Comment on above: Performed By: #### B MP #### [facility] [address] [place] [address] Dr. Darlene Lucero Urea nitrogen [Mass/Vol] 19.0 mg/dL Critically high 7.0-18.0 [facility] Comment on above: Performed By: #### B MP #### [facility] [address] [place] [address] Dr. Darlene Lucero Urea nitrogen/Creatinine [Mass ratio] 26.0 mg/mg Normal [facility] Comment on above: Performed By: #### B MP #### [facility] [address] [address] [address] Darlene Lucero Anion gap [Moles/Vol] 10.3 mmol/L Normal [facility] Comment on above: Performed By: #### B MP #### [facility] [address] [address] [address] Darlene Lucero Calcium [Mass/Vol] 8.4 mg/dL Critically low 8.5-10.1 Th [facility] Comment on above: Performed By: #### B MP #### [facility] [address] [address] [address] Darlene Lucero Chloride [Moles/Vol] 90 mmol/L Critically low 98-107 [facility] Comment on above: Performed By: #### B MP #### [facility] [address] [address] [address] Darlene Lucero CO2 [Moles/Vol] 28.0 mmol/L Normal 21.0-32.0 [facility] Comment on above: Performed By: #### B MP #### [facility] [address] [place] [address] Dr. Darlene Lucero Creatinine [Mass/Vol] 0.69 mg/dL Normal 0.55-1.02 [facility] Comment on above: Performed By: #### B MP #### [facility] [address] [address] [address] Darlene Lucero EGFR-AF SWEDISH >60 Normal >=60 [facility] Comment on above: Performed By: #### B MP #### [facility] [address] [address] [address] Darlene Lucero EGFR-NON AF SWEDISH >60 Normal >=60 [facility] Comment on above: Performed By: #### B MP #### [facility] [address] [place] [address] Dr. Darlene Lucero Glucose [Mass/Vol] 95 mg/dL Normal 74-106 [facility] Comment on above: Performed By: #### B MP #### [facility] [address] [address] [address] Darlene Lucero Potassium [Moles/Vol] 3.3 mmol/L Critically low 3.5-5.1 [facility] Comment on above: Performed By: #### B MP #### [facility] [address] [address] [address] Darlene Lucero Sodium [Moles/Vol] 125 mmol/L Critically low 136-145 Th [facility] Comment on above: Performed By: #### B MP #### [facility] [address] [address] [address] Darlene Lucero Urea nitrogen [Mass/Vol] 18.0 mg/dL Normal 7.0-18.0 [facility] Comment on above: Performed By: #### B MP #### [facility] [address] [address] [address] Darlene Lucero Urea nitrogen/Creatinine [Mass ratio] 26.1 mg/mg Normal [facility] Comment on above: Performed By: #### B MP #### [facility] [address] [address] [address] Darlene Lucero Anion gap [Moles/Vol] 9.0 mmol/L Normal [facility] Comment on above: Performed By: #### O SMOU #### [facility] [address] [address] [address] Darlene Lucero Calcium [Mass/Vol] 8.3 mg/dL Critically low 8.5-10.1 [facility] Comment on above: Performed By: #### O SMOU #### [facility] [address] [address] [address] Darlene Lucero Chloride [Moles/Vol] 92 mmol/L Critically low 98-107 [facility] Comment on above: Performed By: #### O SMOU #### [facility] [address] [address] [address] Darlene Lucero CO2 [Moles/Vol] 28.8 mmol/L Normal 21.0-32.0 [facility] Comment on above: Performed By: #### O SMOU #### [facility] [address] [address] [address] Darlene Lucero Creatinine [Mass/Vol] 0.65 mg/dL Normal 0.55-1.02 [facility] Comment on above: Performed By: #### O SMOU #### [facility] [address] [address] [address] Darlene Lucero EGFR-AF SWEDISH >60 Normal >=60 [facility] Comment on above: Performed By: #### O SMOU #### [facility] [address] [place] [address] Dr. Darlene Lucero EGFR-NON AF SWEDISH >60 Normal >=60 [facility] Comment on above: Performed By: #### O SMOU #### [facility] [address] [place] [address] Dr. Darlene Lucero Glucose [Mass/Vol] 89 mg/dL Normal 74-106 [facility] Comment on above: Performed By: #### O SMOU #### [facility] [address] [place] [address] Dr. Darlene Lucero Potassium [Moles/Vol] 3.8 mmol/L Normal 3.5-5.1 [facility] Comment on above: Performed By: #### O SMOU #### [facility] [address] [place] [address] Dr. Darlene Lucero Sodium [Moles/Vol] 126 mmol/L Critically low 136-145 Th [facility] Comment on above: Performed By: #### O SMOU #### [facility] [address] [place] [address] Dr. Darlene Lucero Urea nitrogen [Mass/Vol] 19.0 mg/dL Critically high 7.0-18.0 [facility] Comment on above: Performed By: #### O SMOU #### [facility] [address] [place] [address] Dr. Darlene Lucero Urea nitrogen/Creatinine [Mass ratio] 29.2 mg/mg Normal [facility] Comment on above: Performed By: #### O SMOU #### [facility] [address] [address] [address] Darlene Lucero Anion gap [Moles/Vol] 9.0 mmol/L Normal [facility] Comment on above: Performed By: #### O SMOU #### [facility] [address] [place] [address] Dr. Darlene Lucero Calcium [Mass/Vol] 8.2 mg/dL Critically low 8.5-10.1 Th [facility] Comment on above: Performed By: #### O SMOU #### [facility] [address] [place] [address] Dr. Darlene Lucero Chloride [Moles/Vol] 92 mmol/L Critically low 98-107 [facility] Comment on above: Performed By: #### O SMOU #### [facility] [address] [place] [address] Dr. Darlene Lucero CO2 [Moles/Vol] 26.8 mmol/L Normal 21.0-32.0 [facility] Comment on above: Performed By: #### O SMOU #### [facility] [address] [place] [address] Dr. Darlene Lucero Creatinine [Mass/Vol] 0.68 mg/dL Normal 0.55-1.02 [facility] Comment on above: Performed By: #### O SMOU #### [facility] [address] [place] [address] Dr. Darlene Lucero EGFR-AF SWEDISH >60 Normal >=60 [facility] Comment on above: Performed By: #### O SMOU #### [facility] [address] [place] [address] Dr. Darlene Lucero EGFR-NON AF SWEDISH >60 Normal >=60 [facility] Comment on above: Performed By: #### O SMOU #### [facility] [address] [place] [address] Dr. Darlene Lucero Glucose [Mass/Vol] 94 mg/dL Normal 74-106 [facility] Comment on above: Performed By: #### O SMOU #### [facility] [address] [place] [address] Dr. Darlene Lucero Potassium [Moles/Vol] 3.8 mmol/L Normal 3.5-5.1 [facility] Comment on above: Performed By: #### O SMOU #### [facility] [address] [place] [address] Dr. Darlene Lucero Sodium [Moles/Vol] 124 mmol/L Critically low 136-145 Th e [facility] Comment on above: Result Comment: repe ated Performed By: #### O SMOU #### [facility] [address] [place] [address] Dr. Darlene Lucero Urea nitrogen [Mass/Vol] 20.0 mg/dL Critically high 7.0-18.0 [facility] Comment on above: Performed By: #### O SMOU #### [facility] [address] [place] [address] Dr. Darlene Lucero Urea nitrogen/Creatinine [Mass ratio] 29.4 mg/mg Normal [facility] Comment on above: Performed By: #### O SMOU #### [facility] [address] [place] [address] Dr. Darlene Lucero CBC AUTO DIFFon 09-02-2021 BASO # 0.0 103/ul Normal 0.0-0.1 [facility] Comment on above: Performed By: #### B MP #### [facility] [address] [place] [address] Dr. Darlene Lucero Basophils/100 WBC (Bld) 0.1 % Critically low 0.2-2.0 [facility] Comment on above: Performed By: #### B MP #### [facility] [address] [place] [address] Dr. Darlene Lucero EO # 0.0 103/ul Normal 0.0-0.7 [facility] Comment on above: Performed By: #### B MP #### [facility] [address] [place] [address] Dr. Darlene Lucero Eosinophils/100 WBC (Bld) 0.0 % Critically low 0.9-7.0 [facility] Comment on above: Performed By: #### B MP #### [facility] [address] [place] [address] Dr. Darlene Lucero Erythrocyte distribution width (RBC) [Ratio] 12.0 % Normal 11.0-15.0 [facility] Comment on above: Performed By: #### B MP #### [facility] [address] [place] [address] Dr. Darlene Lucero Hematocrit (Bld) [Volume fraction] 35.1 % Critically low 36.0-48.0 [facility] Comment on above: Performed By: #### B MP #### [facility] [address] [place] [address] Dr. Darlene Lucero Hemoglobin (Bld) [Mass/Vol] 11.9 g/dL Critically low 12.0-16.0 [facility] Comment on above: Performed By: #### B MP #### [facility] [address] [place] [address] Dr. Darlene Lucero IG # 0.04 10e3/ul Critically high 0.00-0.03 [facility] Comment on above: Performed By: #### B MP #### [facility] [address] [place] [address] Dr. Darlene Lucero IG % 0.4 % Normal 0.0-0.5 [facility] Comment on above: Performed By: #### B MP #### [facility] [address] [place] [address] Dr. Darlene Lucero LYMPH # 1.0 103/ul Critically low 1.2-3.8 [facility] Comment on above: Performed By: #### B MP #### [facility] [address] [place] [address] Dr. Darlene Lucero Lymphocytes/100 WBC (Bld) 10.6 % Critically low 20.5-60.0 [facility] Comment on above: Performed By: #### B MP #### [facility] [address] [place] [address] Dr. Darlene Lucero MANUAL DIFF REQ NO Normal [facility] Comment on above: Performed By: #### B MP #### [facility] [address] [place] [address] Dr. Darlene Lucero MCH (RBC) [Entitic mass] 29.4 pg Normal 26.7-34.0 [facility] Comment on above: Performed By: #### B MP #### [facility] [address] [place] [address] Dr. Darlene Lucero MCHC (RBC) [Mass/Vol] 33.9 g/dL Normal 29.9-35.2 [facility] Comment on above: Performed By: #### B MP #### [facility] [address] [address] [address] Darlene Lucero MCV (RBC) [Entitic vol] 86.7 fL Normal 81.0-99.0 [facility] Comment on above: Performed By: #### B MP #### [facility] [address] [place] [address] Dr. Darlene Lucero MONO # 1.1 103/ul Critically high 0.3-0.[address] [facility] Comment on above: Performed By: #### B MP #### [facility] [address] [place] [address] Dr. Darlene Lucero Monocytes/100 WBC (Bld) 12.1 % Critically high 1.7-12.0 [facility] Comment on above: Performed By: #### B MP #### [facility] [address] [place] [address] Dr. Darlene Lucero NEUT # 6.9 103/ul Critically high 1.4-6.[address] [facility] Comment on above: Performed By: #### B MP #### [facility] [address] [place] [address] Dr. Darlene Lucero Neutrophils/100 WBC (Bld) 76.8 % Critically high 43.0-75.0 [facility] Comment on above: Performed By: #### B MP #### [facility] [address] [place] [address] Dr. Darlene Lucero Platelet mean volume (Bld) [Entitic vol] 8.1 fL Critically low 9.5-13.5 The [facility] Comment on above: Performed By: #### B MP #### [facility] [address] [address] [address] Darlene Lucero PLT 498 103/ul Critically high 150-450 [facility] Comment on above: Performed By: #### B MP #### [facility] [address] [address] [address] Darlene Lucero RBC 4.05 106/ul Critically low 4.20-5.40 [facility] Comment on above: Performed By: #### B MP #### [facility] [address] [address] [address] Darlene Lucero WBC 9.0 103/ul Normal 4.0-11.0 [facility] Comment on above: Performed By: #### B MP #### [facility] [address] [address] [address] Darlene Lucero OSMOLALITY URINEon 2 Osmolality, Urine 522 mOsmol/kg Normal [facility] Comment on above: Result Comment: 24 h r : 300 - 900 Random: 50 - 1400 After 12hr fluid restriction: >850 Performed By: #### O SMOU #### [facility] [address] [address] [address] Darlene Lucero POINT OF CARE GLUCOSEon 08-15 Glucose [Mass/Vol] 146 mg/dL Critically high 74-106 [facility] Comment on above: Performed By: #### O SMOU #### [facility] [address] [place] [address] Dr. Darlene Lucero Glucose [Mass/Vol] 151 mg/dL Critically high 74-106 [facility] Comment on above: Performed By: #### B MP #### [facility] [address] [place] [address] [address] Darlene Lucero Glucose [Mass/Vol] 123 mg/dL Critically high -106 [facility] Comment on above: Performed By: #### B MP #### [facility] [address] [address] [address] Darlene Lucero Glucose [Mass/Vol] 153 mg/dL Critically high 74-106 [facility] Comment on above: Performed By: #### B MP #### [facility] [address] [address] [address] Darlene Lucero PROF CHEM 8 (BAS METB)on Anion gap [Moles/Vol] 10.1 mmol/L Normal [facility] Comment on above: Performed By: #### B MP #### [facility] [address] [place] [address] Dr. Darlene Lucero Calcium [Mass/Vol] 8.4 mg/dL Critically low 8.5-10.1 Th [facility] Comment on above: Performed By: #### B MP #### [facility] [address] [place] [address] Dr. Darlene Lucero Chloride [Moles/Vol] 90 mmol/L Critically low 98-107 [facility] Comment on above: Performed By: #### B MP #### [facility] [address] [place] [address] Dr. Darlene Lucero CO2 [Moles/Vol] 27.4 mmol/L Normal 21.0-32.0 [facility] Comment on above: Performed By: #### B MP #### [facility] [address] [place] [address] Dr. Darlene Lucero Creatinine [Mass/Vol] 0.82 mg/dL Normal 0.55-1.02 [facility] Comment on above: Performed By: #### B MP #### [facility] [address] [place] [address] Dr. Darlene Lucero EGFR-AF SWEDISH >60 Normal >=60 [facility] Comment on above: Performed By: #### B MP #### [facility] [address] [place] [address] Dr. Darlene Lucero EGFR-NON AF SWEDISH >60 Normal >=60 [facility] Comment on above: Performed By: #### B MP #### [facility] [address] [place] [address] Dr. Darlene Lucero Glucose [Mass/Vol] 120 mg/dL Critically high 74-106 [facility] Comment on above: Performed By: #### B MP #### [facility] [address] [place] [address] Dr. Darlene Lucero Potassium [Moles/Vol] 3.5 mmol/L Normal 3.5-5.1 [facility] Comment on above: Performed By: #### B MP #### [facility] [address] [address] [address] Darlene Lucero Sodium [Moles/Vol] 124 mmol/L Critically low 136-145 Th [facility] Comment on above: Result Comment: repe ated Performed By: #### B MP #### [facility] [address] [place] [address] [address] Darlene Lucero Urea nitrogen [Mass/Vol] 20.0 mg/dL Critically high 7.0-18.0 [facility] Comment on above: Performed By: #### B MP #### [facility] [address] [place] [address] Dr. Darlene Lucero Urea nitrogen/Creatinine [Mass ratio] 24.4 mg/mg Normal [facility] Comment on above: Performed By: #### B MP #### [facility] [address] [address] [address] Darlene Lucero Anion gap [Moles/Vol] 11.7 mmol/L Normal [facility] Comment on above: Performed By: #### O SMOU #### [facility] [address] [place] [address] Dr. Darlene Lucero Calcium [Mass/Vol] 8.5 mg/dL Normal 8.5-10.1 [facility] Comment on above: Performed By: #### O SMOU #### [facility] [address] [place] [address] [address] Darlene Lucero Chloride [Moles/Vol] 89 mmol/L Critically low 98-107 [facility] Comment on above: Performed By: #### O SMOU #### [facility] [address] [place] [address] [address] Darlene Lucero CO2 [Moles/Vol] 25.2 mmol/L Normal 21.0-32.0 [facility] Comment on above: Performed By: #### O SMOU #### [facility] [address] [place] [address] Dr. Darlene Lucero Creatinine [Mass/Vol] 0.76 mg/dL Normal 0.55-1.02 [facility] Comment on above: Performed By: #### O SMOU #### [facility] [address] [place] [address] Dr. Darlene Lucero EGFR-AF SWEDISH >60 Normal >=60 [facility] Comment on above: Performed By: #### O SMOU #### [facility] [address] [place] [address] Dr. Darlene Lucero EGFR-NON AF SWEDISH >60 Normal >=60 [facility] Comment on above: Performed By: #### O SMOU #### [facility] [address] [place] [address] Dr. Darlene Lucero Glucose [Mass/Vol] 140 mg/dL Critically high 74-[address] [facility] Comment on above: Performed By: #### O SMOU #### [facility] [address] [place] [address] Dr. Darlene Lucero Potassium [Moles/Vol] 3.9 mmol/L Normal 3.5-5.1 [facility] Comment on above: Performed By: #### O SMOU #### [facility] [address] [place] [address] Dr. Darlene Lucero Sodium [Moles/Vol] 122 mmol/L Critically low 136-145 Th [facility] Comment on above: Performed By: #### O SMOU #### [facility] [address] [place] [address] Dr. Darlene Lucero Urea nitrogen [Mass/Vol] 16.0 mg/dL Normal 7.0-18.0 [facility] Comment on above: Performed By: #### O SMOU #### [facility] [address] [place] [address] Dr. Darlene Lucero Urea nitrogen/Creatinine [Mass ratio] 21.1 mg/mg Normal [facility] Comment on above: Performed By: #### O SMOU #### [facility] [address] [place] [address] Dr. Darlene Lucero Anion gap [Moles/Vol] 9.2 mmol/L Normal [facility] Comment on above: Performed By: #### O SMOU #### [facility] [address] [place] [address] Dr. Darlene Lucero Calcium [Mass/Vol] 8.3 mg/dL Critically low 8.5-10.1 Th e [facility] Comment on above: Performed By: #### O SMOU #### [facility] [address] [place] [address] Dr. Darlene Lucero Chloride [Moles/Vol] 88 mmol/L Critically low 98-107 [facility] Comment on above: Performed By: #### O SMOU #### [facility] [address] [place] [address] Dr. Darlene Lucero CO2 [Moles/Vol] 27.8 mmol/L Normal 21.0-32.0 [facility] Comment on above: Performed By: #### O SMOU #### [facility] [address] [place] [address] Dr. Darlene Lucero Creatinine [Mass/Vol] 0.78 mg/dL Normal 0.55-1.02 [facility] Comment on above: Performed By: #### O SMOU #### [facility] [address] [place] [address] Dr. Darlene Lucero EGFR-AF SWEDISH >60 Normal >=60 [facility] Comment on above: Performed By: #### O SMOU #### [facility] [address] [place] [address] Dr. Darlene Lucero EGFR-NON AF SWEDISH >60 Normal >=60 [facility] Comment on above: Performed By: #### O SMOU #### [facility] [address] [place] [address] Dr. Darlene Lucero Glucose [Mass/Vol] 148 mg/dL Critically high 74-106 [facility] Comment on above: Performed By: #### O SMOU #### [facility] [address] [place] [address] Dr. Darlene Lucero Potassium [Moles/Vol] 4.0 mmol/L Normal 3.5-5.1 [facility] Comment on above: Performed By: #### O SMOU #### [facility] [address] [address] [address] Darlene Lucero Sodium [Moles/Vol] 122 mmol/L Critically low 136-145 Th [facility] Comment on above: Performed By: #### O SMOU #### [facility] [address] [place] [address] [address] Darlene Lucero Urea nitrogen [Mass/Vol] 15.0 mg/dL Normal 7.0-18.0 [facility] Comment on above: Performed By: #### O SMOU #### [facility] [address] [place] [address] [address] Darlene Lucero Urea nitrogen/Creatinine [Mass ratio] 19.2 mg/mg Normal [facility] Comment on above: Performed By: #### O SMOU #### [facility] [address] [place] [address] [address] Darlene Lucero Anion gap [Moles/Vol] 9.1 mmol/L Normal [facility] Comment on above: Performed By: #### B MP #### [facility] [address] [address] [address] Darlene Lucero Calcium [Mass/Vol] 8.3 mg/dL Critically low 8.5-10.1 Th [facility] Comment on above: Performed By: #### B MP #### [facility] [address] [address] [address] Darlene Lucero Chloride [Moles/Vol] 86 mmol/L Critically low 98-107 [facility] Comment on above: Performed By: #### B MP #### [facility] [address] [place] [address] [address] Darlene Lucero CO2 [Moles/Vol] 27.9 mmol/L Normal 21.0-32.0 [facility] Comment on above: Performed By: #### B MP #### [facility] [address] [address] [address] Darlene Lucero Creatinine [Mass/Vol] 0.78 mg/dL Normal 0.55-1.02 [facility] Comment on above: Performed By: #### B MP #### [facility] [address] [place] [address] [address] Darlene Lucero EGFR-AF SWEDISH >60 Normal >=60 [facility] Comment on above: Performed By: #### B MP #### [facility] [address] [place] [address] [address] Darlene Lucero EGFR-NON AF SWEDISH >60 Normal >=60 [facility] Comment on above: Performed By: #### B MP #### [facility] [address] [place] [address] [address] Darlene Lucero Glucose [Mass/Vol] 106 mg/dL Normal 74-106 [facility] Comment on above: Performed By: #### B MP #### [facility] [address] [place] [address] [address] Darlene Lucero Potassium [Moles/Vol] 4.0 mmol/L Normal 3.5-5.1 [facility] Comment on above: Performed By: #### B MP #### [facility] [address] [place] [address] [address] Darlene Lucero Sodium [Moles/Vol] 119 mmol/L Critically low 136-145 Th [facility] Comment on above: Performed By: #### B MP #### [facility] [address] [place] [address] [address] Darlene Lucero Urea nitrogen [Mass/Vol] 14.0 mg/dL Normal 7.0-18.0 [facility] Comment on above: Performed By: #### B MP #### [facility] [address] [place] [address] [address] Darlene Lucero Urea nitrogen/Creatinine [Mass ratio] 17.9 mg/mg Normal [facility] Comment on above: Performed By: #### B MP #### [facility] [address] [place] [address] [address] Darlene Lucero Anion gap [Moles/Vol] 11.7 mmol/L Normal [facility] Comment on above: Performed By: #### B MP #### [facility] [address] [place] [address] [address] Darlene Lucero Calcium [Mass/Vol] 8.5 mg/dL Normal 8.5-10.1 [facility] Comment on above: Performed By: #### B MP #### [facility] [address] [address] [address] Darlene Lucero Chloride [Moles/Vol] 85 mmol/L Critically low 98-107 [facility] Comment on above: Performed By: #### B MP #### [facility] [address] [place] [address] [address] Darlene Lucero CO2 [Moles/Vol] 25.9 mmol/L Normal 21.0-32.0 [facility] Comment on above: Performed By: #### B MP #### [facility] [address] [place] [address] Dr. Darlene Lucero Creatinine [Mass/Vol] 0.85 mg/dL Normal 0.55-1.02 [facility] Comment on above: Performed By: #### B MP #### [facility] [address] [place] [address] Dr. Darlene Lucero EGFR-AF SWEDISH >60 Normal >=60 [facility] Comment on above: Performed By: #### B MP #### [facility] [address] [place] [address] Dr. Darlene Lucero EGFR-NON AF SWEDISH >60 Normal >=60 [facility] Comment on above: Performed By: #### B MP #### [facility] [address] [place] [address] Dr. Darlene Lucero Glucose [Mass/Vol] 105 mg/dL Normal 74-106 [facility] Comment on above: Performed By: #### B MP #### [facility] [address] [address] [address] Darlene Lucero Potassium [Moles/Vol] 3.6 mmol/L Normal 3.5-5.1 [facility] Comment on above: Performed By: #### B MP #### [facility] [address] [place] [address] Dr. Darlene Lucero Sodium [Moles/Vol] 119 mmol/L Critically low 136-145 Th [facility] Comment on above: Result Comment: repe ated Performed By: #### B MP #### [facility] [address] [address] [address] Darlene Lucero Urea nitrogen [Mass/Vol] 13.0 mg/dL Normal 7.0-18.0 [facility] Comment on above: Performed By: #### B MP #### [facility] [address] [address] [address] Darlene Lucero Urea nitrogen/Creatinine [Mass ratio] 15.3 mg/mg Normal [facility] Comment on above: Performed By: #### B MP #### [facility] [address] [address] [address] Darlene Lucero Anion gap [Moles/Vol] 11.3 mmol/L Normal [facility] Comment on above: Performed By: #### B MP #### [facility] [address] [place] [address] [address] Darlene Lucero Calcium [Mass/Vol] 8.2 mg/dL Critically low 8.5-10.1 Th [facility] Comment on above: Performed By: #### B MP #### [facility] [address] [address] [address] Darlene Lucero Chloride [Moles/Vol] 85 mmol/L Critically low 98-107 [facility] Comment on above: Performed By: #### B MP #### [facility] [address] [address] [address] Darlene Lucero CO2 [Moles/Vol] 27.2 mmol/L Normal 21.0-32.0 [facility] Comment on above: Performed By: #### B MP #### [facility] [address] [address] [address] Darlene Lucero Creatinine [Mass/Vol] 0.89 mg/dL Normal 0.55-1.02 [facility] Comment on above: Performed By: #### B MP #### [facility] [address] [address] [address] Darlene Lucero EGFR-AF SWEDISH >60 Normal >=60 [facility] Comment on above: Performed By: #### B MP #### [facility] [address] [address] [address] Darlene Lucero EGFR-NON AF SWEDISH >60 Normal >=60 [facility] Comment on above: Performed By: #### B MP #### [facility] [address] [address] [address] Darlene Lucero Glucose [Mass/Vol] 105 mg/dL Normal 74-106 [facility] Comment on above: Performed By: #### B MP #### [facility] [address] [address] [address] Darlene Lucero Potassium [Moles/Vol] 3.5 mmol/L Normal 3.5-5.1 [facility] Comment on above: Performed By: #### B MP #### [facility] [address] [place] [address] Dr. Darlene Lucero Sodium [Moles/Vol] 120 mmol/L Critically low 136-145 Th [facility] Comment on above: Result Comment: repe ated Performed By: #### B MP #### [facility] [address] [place] [address] Dr. Darlene Lucero Urea nitrogen [Mass/Vol] 12.0 mg/dL Normal 7.0-18.0 [facility] Comment on above: Performed By: #### B MP #### [facility] [address] [place] [address] Dr. Darlene Lucero Urea nitrogen/Creatinine [Mass ratio] 13.5 mg/mg Normal [facility] Comment on above: Performed By: #### B MP #### [facility] [address] [place] [address] Dr. Darlene Lucero CBC AUTO DIFFon 09-01-2021 BASO # 0.0 103/ul Normal 0.0-0.1 [facility] Comment on above: Performed By: #### U WILLEM #### [facility] [address] [place] [address] Dr. Darlene Lucero Basophils/100 WBC (Bld) 0.1 % Critically low 0.2-2.0 [facility] Comment on above: Performed By: #### U WILLEM #### [facility] [address] [address] [address] Darlene Lucero EO # 0.0 103/ul Normal 0.0-0.7 [facility] Comment on above: Performed By: #### U WILLEM #### [facility] [address] [address] [address] Darlene Lucero Eosinophils/100 WBC (Bld) 0.0 % Critically low 0.9-7.0 [facility] Comment on above: Performed By: #### U WILLEM #### [facility] [address] [place] [address] Dr. Darlene Lucero Erythrocyte distribution width (RBC) [Ratio] 11.9 % Normal 11.0-15.0 [facility] Comment on above: Performed By: #### U WILLEM #### [facility] [address] [place] [address] Dr. Darlene Lucero Hematocrit (Bld) [Volume fraction] 36.0 % Normal 36.0-48.0 [facility] Comment on above: Performed By: #### U WILLEM #### [facility] [address] [place] [address] Dr. Darlene Lucero Hemoglobin (Bld) [Mass/Vol] 12.2 g/dL Normal 12.0-16.0 [facility] Comment on above: Performed By: #### U WILLEM #### [facility] [address] [place] [address] Dr. Darlene Lucero IG # 0.07 10e3/ul Critically high 0.00-0.03 [facility] Comment on above: Performed By: #### U WILLEM #### [facility] [address] [place] [address] Dr. Darlene Lucero IG % 0.6 % Critically high 0.0-0.5 [facility] Comment on above: Performed By: #### U WILELM #### [facility] [address] [place] [address] Dr. Darlene Lucero LYMPH # 1.1 103/ul Critically low 1.2-3.8 [facility] Comment on above: Performed By: #### U WILLEM #### [facility] [address] [place] [address] Dr. Darlene Lucero Lymphocytes/100 WBC (Bld) 9.2 % Critically low 20.5-60.0 [facility] Comment on above: Performed By: #### U WILLEM #### [facility] [address] [place] [address] Dr. Darlene Lucero MANUAL DIFF REQ NO Normal [facility] Comment on above: Performed By: #### U WILLEM #### [facility] [address] [place] [address] Dr. Darlene Lucero MCH (RBC) [Entitic mass] 29.5 pg Normal 26.7-34.0 [facility] Comment on above: Performed By: #### U WILLEM #### [facility] [address] [place] [address] Dr. Darlene Lucero MCHC (RBC) [Mass/Vol] 33.9 g/dL Normal 29.9-35.2 [facility] Comment on above: Performed By: #### U WILLEM #### [facility] [address] [place] [address] Dr. Darlene Lucero MCV (RBC) [Entitic vol] 87.0 fL Normal 81.0-99.0 [facility] Comment on above: Performed By: #### U WILLEM #### [facility] [address] [place] [address] Dr. Darlene Lucero MONO # 1.4 103/ul Critically high 0.3-0.[address] [facility] Comment on above: Performed By: #### U WILLEM #### [facility] [address] [place] [address] Dr. Darlene Lucero Monocytes/100 WBC (Bld) 11.6 % Normal 1.7-12.0 [facility] Comment on above: Performed By: #### U WILLEM #### [facility] [address] [place] [address] Dr. Darlene Lucero NEUT # 9.1 103/ul Critically high 1.4-6.[address] [facility] Comment on above: Performed By: #### U WILLEM #### [facility] [address] [address] [address] Darlene Lucero Neutrophils/100 WBC (Bld) 78.5 % Critically high 43.0-75.0 [facility] Comment on above: Performed By: #### U WILLEM #### [facility] [address] [address] [address] Darlene Lucero Platelet mean volume (Bld) [Entitic vol] 7.9 fL Critically low 9.5-13.5 [facility] Comment on above: Performed By: #### U WILLEM #### [facility] [facility] [place] [address] [address] [address] Darlene Lucero PLT 447 103/ul Normal 150-450 [facility] Comment on above: Performed By: #### U WILLEM #### [facility] [address] [address] [address] Darlene Lucero RBC 4.14 106/ul Critically low 4.20-5.[address] [facility] Comment on above: Performed By: #### U WILLEM #### [facility] [address] [address] [address] Darlene Lucero WBC 11.6 103/ul Critically high 4.0-11.0 [facility] Comment on above: Performed By: #### U WILLEM #### [facility] [address] [address] [address] Darlene Lucero [facility]14 SARS-CoV-2 (COVID-19) RNA TASHA+probe Ql (Unsp spec) Detected Critically abnormal NOT DETECTED [facility] Comment on above: Result Comment: This test is not yet approved or cleared by the [place] FDA. When there are no FDA-approved or cleared tests available, and other criteria are met, FDA can make tests available under an emergency access mechanism called an Emergency Use Authorization (EUA). The EUA for this test is supported by the Juvenile Court Liaison of Health and Human Service's (HHS's) declaration [...] used). Performed By: #### U WILLEM #### [facility] [address] [place] [address] Dr. Darlene Lucero PROF CHEM 8 (BAS METB)on Anion gap [Moles/Vol] 13.1 mmol/L Normal [facility] Comment on above: Performed By: #### B MP #### [facility] [address] [address] [address] Darlene Lucero Calcium [Mass/Vol] 8.4 mg/dL Critically low 8.5-10.1 [facility] Comment on above: Performed By: #### B MP #### [facility] [address] [place] [address] Dr. Darlene Lucero Chloride [Moles/Vol] 88 mmol/L Critically low 98-107 [facility] Comment on above: Performed By: #### B MP #### [facility] [address] [place] [address] Dr. Darlene Lucero CO2 [Moles/Vol] 24.0 mmol/L Normal 21.0-32.0 [facility] Comment on above: Performed By: #### B MP #### [facility] [address] [place] [address] Dr. Darlene Lucero Creatinine [Mass/Vol] 0.60 mg/dL Normal 0.55-1.02 [facility] Comment on above: Performed By: #### B MP #### [facility] [address] [place] [address] Dr. Darlene Lucero EGFR-AF SWEDISH >60 Normal >=60 [facility] Comment on above: Performed By: #### B MP #### [facility] [address] [place] [address] Dr. Darlene Lucero EGFR-NON AF SWEDISH >60 Normal >=60 [facility] Comment on above: Performed By: #### B MP #### [facility] [address] [place] [address] Dr. Darlene Lucero Glucose [Mass/Vol] 131 mg/dL Critically high 74-[address] [facility] Comment on above: Performed By: #### B MP #### [facility] [address] [address] [address] Darlene Lucero Potassium [Moles/Vol] 4.2 mmol/L Normal 3.5-5.1 [facility] Comment on above: Performed By: #### B MP #### [facility] [address] [address] [address] Darlene Lucero Sodium [Moles/Vol] 121 mmol/L Critically low 136-145 Th [facility] Comment on above: Result Comment: repe ated Performed By: #### B MP #### [facility] [address] [place] [address] Dr. Darlene Lucero Urea nitrogen [Mass/Vol] 11.0 mg/dL Normal 7.0-18.0 [facility] Comment on above: Performed By: #### B MP #### [facility] [address] [place] [address] Dr. Darlene Lucero Urea nitrogen/Creatinine [Mass ratio] 18.3 mg/mg Normal [facility] Comment on above: Performed By: #### B MP #### [facility] [address] [place] [address] Dr. Darlene Lucero Anion gap [Moles/Vol] 10.4 mmol/L Normal [facility] Comment on above: Performed By: #### U WILLEM #### [facility] [address] [address] [address] Darlene Lucero Calcium [Mass/Vol] 8.1 mg/dL Critically low 8.5-10.1 Th [facility] Comment on above: Performed By: #### U WILLEM #### [facility] [address] [place] [address] Dr. Darlene Lucero Chloride [Moles/Vol] 85 mmol/L Critically low 98-107 [facility] Comment on above: Performed By: #### U WILLEM #### [facility] [address] [place] [address] Dr. Darlene Lucero CO2 [Moles/Vol] 25.9 mmol/L Normal 21.0-32.0 [facility] Comment on above: Performed By: #### U WILLEM #### [facility] [address] [place] [address] Dr. Darlene Lucero Creatinine [Mass/Vol] 0.57 mg/dL Normal 0.55-1.02 [facility] Comment on above: Performed By: #### U WILLEM #### [facility] [address] [address] [address] Darlene Lucero EGFR-AF SWEDISH >60 Normal >=60 [facility] Comment on above: Performed By: #### U WILLEM #### [facility] [address] [place] [address] Dr. Darlene Lucero EGFR-NON AF SWEDISH >60 Normal >=60 [facility] Comment on above: Performed By: #### U WILLEM #### [facility] [address] [place] [address] Dr. Darlene Lucero Glucose [Mass/Vol] 139 mg/dL Critically high 74-[address] [facility] Comment on above: Performed By: #### U WILLEM #### [facility] [address] [place] [address] Dr. Darlene Lucero Potassium [Moles/Vol] 4.3 mmol/L Normal 3.5-5.1 [facility] Comment on above: Result Comment: SPEC IMEN SLIGHTLY HEMOLYZED MAY AFFECT K+ Performed By: #### U WILLEM #### [facility] [address] [place] [address] Dr. Darlene Lucero Sodium [Moles/Vol] 117 mmol/L Critically low 136-145 Th [facility] Comment on above: Result Comment: TEST REPEATED CRITICAL VALUE VERIFIED Performed By: #### U WILLEM #### [facility] [address] [place] [address] Dr. Darlene Lucero Urea nitrogen [Mass/Vol] 9.0 mg/dL Normal 7.0-18.0 [facility] Comment on above: Performed By: #### U WILLEM #### [facility] [address] [place] [address] Dr. Darlene Lucero Urea nitrogen/Creatinine [Mass ratio] 15.8 mg/mg Normal [facility] Comment on above: Performed By: #### U WILLEM #### [facility] [address] [place] [address] Dr. Darlene Lucero Anion gap [Moles/Vol] 12.9 mmol/L Normal [facility] Comment on above: Performed By: #### O SMOU #### [facility] [address] [place] [address] Dr. Darlene Lucero Calcium [Mass/Vol] 8.3 mg/dL Critically low 8.5-10.1 Th [facility] Comment on above: Performed By: #### O SMOU #### [facility] [address] [place] [address] Dr. Darlene Lucero Chloride [Moles/Vol] 84 mmol/L Critically low 98-107 [facility] Comment on above: Result Comment: test repeated critical value verified Performed By: #### O SMOU #### [facility] [address] [place] [address] Dr. Darlene Lucero CO2 [Moles/Vol] 25.1 mmol/L Normal 21.0-32.0 [facility] Comment on above: Performed By: #### O SMOU #### [facility] [address] [place] [address] Dr. Darlene Lucero Creatinine [Mass/Vol] 0.56 mg/dL Normal 0.55-1.02 [facility] Comment on above: Performed By: #### O SMOU #### [facility] [address] [place] [address] Dr. Darlene Lucero EGFR-AF SWEDISH >60 Normal >=60 [facility] Comment on above: Performed By: #### O SMOU #### [facility] [address] [place] [address] Dr. Darlene Lucero EGFR-NON AF SWEDISH >60 Normal >=60 [facility] Comment on above: Performed By: #### O SMOU #### [facility] [address] [place] [address] Dr. Darlene Lucero Potassium [Moles/Vol] 3.9 mmol/L Normal 3.5-5.1 [facility] Comment on above: Performed By: #### O SMOU #### [facility] [address] [place] [address] Dr. Darlene Lucero Sodium [Moles/Vol] 116 mmol/L Critically low 136-145 Th [facility] Comment on above: Result Comment: test repeated critical value verified Performed By: #### O SMOU #### [facility] [address] [place] [address] Dr. Darlene Lucero Urea nitrogen [Mass/Vol] 10.0 mg/dL Normal 7.0-18.0 [facility] Comment on above: Performed By: #### O SMOU #### [facility] [address] [place] [address] Dr. Darlene Lucero Urea nitrogen/Creatinine [Mass ratio] 17.9 mg/mg Normal [facility] Comment on above: Performed By: #### O SMOU #### [facility] [address] [place] [address] Dr. Darlene Lucero Anion gap [Moles/Vol] 11.9 mmol/L Normal [facility] Comment on above: Performed By: #### U WILLEM #### [facility] [address] [place] [address] Dr. Darlene Lucero Calcium [Mass/Vol] 8.4 mg/dL Critically low 8.5-10.1 [facility] Comment on above: Performed By: #### U WILLEM #### [facility] [address] [place] [address] Dr. Darlene Lucero Chloride [Moles/Vol] 81 mmol/L Critically low 98-107 [facility] Comment on above: Result Comment: TEST REPEATED CRITICAL VALUE VERIFIED Performed By: #### U WILLEM #### [facility] [address] [place] [address] Dr. Darlene Lucero CO2 [Moles/Vol] 27.8 mmol/L Normal 21.0-32.0 [facility] Comment on above: Performed By: #### U WILLEM #### [facility] [address] [place] [address] Dr. Darlene Lucero Creatinine [Mass/Vol] 0.60 mg/dL Normal 0.55-1.02 [facility] Comment on above: Performed By: #### U WILLEM #### [facility] [address] [place] [address] Dr. Darlene Lucero EGFR-AF SWEDISH >60 Normal >=60 [facility] Comment on above: Performed By: #### U WILLEM #### [facility] [address] [place] [address] Dr. Darlene Lucero EGFR-NON AF SWEDISH >60 Normal >=60 [facility] Comment on above: Performed By: #### U WILLEM #### [facility] [address] [place] [address] Dr. Darlene Lucero Glucose [Mass/Vol] 131 mg/dL Critically high 74-[address] [facility] Comment on above: Performed By: #### U WILLEM #### [facility] [address] [place] [address] Dr. Darlene Lucero Potassium [Moles/Vol] 3.7 mmol/L Normal 3.5-5.1 [facility] Comment on above: Performed By: #### U WILLEM #### [facility] [address] [place] [address] Dr. Darlene Lucero Sodium [Moles/Vol] 117 mmol/L Critically low 136-145 Th [facility] Comment on above: Result Comment: TEST REPEATED CRITICAL VALUE VERIFIED Performed By: #### U WILLEM #### [facility] [address] [place] [address] Dr. Darlene Lucero Urea nitrogen [Mass/Vol] 9.0 mg/dL Normal 7.0-18.0 [facility] Comment on above: Performed By: #### U WILLEM #### [facility] [address] [place] [address] Dr. Darlene Lucero Urea nitrogen/Creatinine [Mass ratio] 15.0 mg/mg Normal [facility] Comment on above: Performed By: #### U WILLEM #### [facility] [address] [place] [address] Dr. Darlene Lucero Anion gap [Moles/Vol] 10.9 mmol/L Normal [facility] Comment on above: Performed By: #### B MP #### [facility] [address] [address] [address] Darlene Lucero Calcium [Mass/Vol] 8.3 mg/dL Critically low 8.5-10.1 Th [facility] Comment on above: Performed By: #### B MP #### [facility] [address] [address] [address] Darlene Lucero Chloride [Moles/Vol] 87 mmol/L Critically low 98-107 [facility] Comment on above: Performed By: #### B MP #### [facility] [address] [place] [address] Dr. Darlene Lucero CO2 [Moles/Vol] 25.7 mmol/L Normal 21.0-32.0 [facility] Comment on above: Performed By: #### B MP #### [facility] [address] [place] [address] Dr. Darlene Lucero Creatinine [Mass/Vol] 0.69 mg/dL Normal 0.55-1.02 [facility] Comment on above: Performed By: #### B MP #### [facility] [address] [place] [address] Dr. Darlene Lucero EGFR-AF SWEDISH >60 Normal >=60 [facility] Comment on above: Performed By: #### B MP #### [facility] [address] [place] [address] Dr. Darlene Lucero EGFR-NON AF SWEDISH >60 Normal >=60 [facility] Comment on above: Performed By: #### B MP #### [facility] [address] [place] [address] Dr. Darlene Lucero Glucose [Mass/Vol] 139 mg/dL Critically high 74-106 [facility] Comment on above: Performed By: #### B MP #### [facility] [address] [place] [address] Dr. Darlene Lucero Potassium [Moles/Vol] 3.7 mmol/L Normal 3.5-5.1 [facility] Comment on above: Performed By: #### B MP #### [facility] [address] [address] [address] Darlene Lucero Sodium [Moles/Vol] 121 mmol/L Critically low 136-145 Th [facility] Comment on above: Result Comment: Test Repeated. Critical Value Verified Performed By: #### B MP #### [facility] [address] [address] [address] Darlene Lucero Urea nitrogen [Mass/Vol] 9.0 mg/dL Normal 7.0-18.0 [facility] Comment on above: Performed By: #### B MP #### [facility] [address] [address] [address] Darlene Lucero Urea nitrogen/Creatinine [Mass ratio] 13.0 mg/mg Normal [facility] Comment on above: Performed By: #### B MP #### [facility] [address] [place] [address] Dr. Darlene Lucero Anion gap [Moles/Vol] 12.7 mmol/L Normal [facility] Comment on above: Performed By: #### O SMOU #### [facility] [address] [address] [address] Darlene Lucero Calcium [Mass/Vol] 8.0 mg/dL Critically low 8.5-10.1 Th [facility] Comment on above: Performed By: #### O SMOU #### [facility] [address] [address] [address] Darlene Lucero Chloride [Moles/Vol] 87 mmol/L Critically low 98-107 [facility] Comment on above: Performed By: #### O SMOU #### [facility] [address] [address] [address] Darlene Lucero CO2 [Moles/Vol] 24.0 mmol/L Normal 21.0-32.0 [facility] Comment on above: Performed By: #### O SMOU #### [facility] [address] [place] [address] Dr. Darlene Lucero Creatinine [Mass/Vol] 0.52 mg/dL Critically low 0.55-1.02 [facility] Comment on above: Performed By: #### O SMOU #### [facility] [address] [address] [address] Darlene Lucero EGFR-AF SWEDISH >60 Normal >=60 [facility] Comment on above: Performed By: #### O SMOU #### [facility] [address] [address] [address] Darlene Lucero EGFR-NON AF SWEDISH >60 Normal >=60 [facility] Comment on above: Performed By: #### O SMOU #### [facility] [address] [address] [address] Darlene Lucero Glucose [Mass/Vol] 158 mg/dL Critically high 74-[address] [facility] Comment on above: Performed By: #### O SMOU #### [facility] [address] [place] [address] Dr. Darlene Lucero Potassium [Moles/Vol] 3.7 mmol/L Normal 3.5-5.1 [facility] Comment on above: Performed By: #### O SMOU #### [facility] [address] [place] [address] Dr. Darlene Lucero Sodium [Moles/Vol] 120 mmol/L Critically low 136-145 Th [facility] Comment on above: Result Comment: Test Repeated. Critical Value Verified Performed By: #### O SMOU #### [facility] [address] [place] [address] Dr. Darlene Lucero Urea nitrogen [Mass/Vol] 9.0 mg/dL Normal 7.0-18.0 [facility] Comment on above: Performed By: #### O SMOU #### [facility] [address] [place] [address] Dr. Darlene Lucero Urea nitrogen/Creatinine [Mass ratio] 17.3 mg/mg Normal [facility] Comment on above: Performed By: #### O SMOU #### [facility] [address] [place] [address] Dr. Darlene Lucero BNPon 08-31-2021 Natriuretic peptide B (Bld) [Mass/Vol] 898.0 pg/mL Normal <=900.0 [facility] Comment on above: Performed By: #### B MP #### [facility] [address] [address] [address] Darlene Lucero CBC AUTO DIFFon 08-31-2021 BASO # 0.0 103/ul Normal 0.0-0.1 [facility] Comment on above: Performed By: #### B MP #### [facility] [address] [address] [address] Darlene Lucero Basophils/100 WBC (Bld) 0.0 % Critically low 0.2-2.0 [facility] Comment on above: Performed By: #### B MP #### [facility] [address] [address] [address] Darlene Lucero EO # 0.0 103/ul Normal 0.0-0.7 [facility] Comment on above: Performed By: #### B MP #### [facility] [address] [place] [address] Dr. Darlene Lucero Eosinophils/100 WBC (Bld) 0.0 % Critically low 0.9-7.0 [facility] Comment on above: Performed By: #### B MP #### [facility] [address] [place] [address] Dr. Darlene Lucero Erythrocyte distribution width (RBC) [Ratio] 12.0 % Normal 11.0-15.0 [facility] Comment on above: Performed By: #### B MP #### [facility] [address] [place] [address] Dr. Darlene Lucero Hematocrit (Bld) [Volume fraction] 35.7 % Critically low 36.0-48.0 [facility] Comment on above: Performed By: #### B MP #### [facility] [address] [place] [address] Dr. Darlene Lucero Hemoglobin (Bld) [Mass/Vol] 12.5 g/dL Normal 12.0-16.0 [facility] Comment on above: Performed By: #### B MP #### [facility] [address] [place] [address] Dr. Darlene Lucero IG # 0.03 10e3/ul Normal 0.00-0.03 [facility] Comment on above: Performed By: #### B MP #### [facility] [address] [place] [address] Dr. Darlene Lucero IG % 0.4 % Normal 0.0-0.5 [facility] Comment on above: Performed By: #### B MP #### [facility] [address] [place] [address] Dr. Darlene Lucero LYMPH # 1.5 103/ul Normal 1.2-3.8 [facility] Comment on above: Performed By: #### B MP #### [facility] [address] [place] [address] Dr. Darlene Lucero Lymphocytes/100 WBC (Bld) 22.3 % Normal 20.5-60.0 [facility] Comment on above: Performed By: #### B MP #### [facility] [address] [place] [address] Dr. Darlene Lucero MANUAL DIFF REQ NO Normal [facility] Comment on above: Performed By: #### B MP #### [facility] [address] [place] [address] Dr. Darlene Lucero MCH (RBC) [Entitic mass] 29.6 pg Normal 26.7-34.0 [facility] Comment on above: Performed By: #### B MP #### [facility] [address] [place] [address] Dr. Darlene Lucero MCHC (RBC) [Mass/Vol] 35.0 g/dL Normal 29.9-35.2 [facility] Comment on above: Performed By: #### B MP #### [facility] [facility] [address] [place] [address] Dr. Darlene Lucero MCV (RBC) [Entitic vol] 84.6 fL Normal 81.0-99.0 [facility] Comment on above: Performed By: #### B MP #### [facility] [address] [place] [address] Dr. Darlene Lucero MONO # 0.8 103/ul Normal 0.3-0.8 [facility] Comment on above: Performed By: #### B MP #### [facility] [address] [address] [address] Darlene Lucero Monocytes/100 WBC (Bld) 11.5 % Normal 1.7-12.0 [facility] Comment on above: Performed By: #### B MP #### [facility] [address] [address] [address] Darlene Lucero NEUT # 4.5 103/ul Normal 1.4-6.5 [facility] Comment on above: Performed By: #### B MP #### [facility] [address] [address] [address] Darlene Lucero Neutrophils/100 WBC (Bld) 65.8 % Normal 43.0-75.0 [facility] Comment on above: Performed By: #### B MP #### [facility] [address] [place] [address] Dr. Darlene Lucero Platelet mean volume (Bld) [Entitic vol] 7.9 fL Critically low 9.5-13.5 [facility] Comment on above: Performed By: #### B MP #### [facility] [address] [address] [address] Darlene Lucero PLT 457 103/ul Critically high 150-450 [facility] Comment on above: Performed By: #### B MP #### [facility] [address] [place] [address] Dr. Darlene Lucero RBC 4.22 106/ul Normal 4.20-5.40 [facility] Comment on above: Performed By: #### B MP #### [facility] [address] [place] [address] Dr. Darlene Lcuero WBC 6.9 103/ul Normal 4.0-11.0 [facility] Comment on above: Performed By: #### B MP #### [facility] [address] [place] [address] Dr. Darlene Lucero CREATININE URINEon 2 URINE CREAT 91.14 mg/dL Normal 20.00-300.00 [facility] Comment on above: Performed By: #### C DAPHNE CALDERA #### [facility] [address] [place] [address] Dr. Darlene SEGUNDO URINE PROFILEon 2 Bilirubin Ql (U) Negative Normal NEGATIVE [facility] Comment on above: Performed By: #### U WILLEM #### [facility] [address] [place] [address] Dr. Darlene Lucero Clarity (U) CLEAR Normal CLEAR [facility] Comment on above: Performed By: #### U WILLEM #### [facility] [address] [place] [address] Dr. Darlene Lucero Color (U) LT. YELLOW Normal YELLOW [facility] Comment on above: Performed By: #### U WILLEM #### [facility] [address] [place] [address] Dr. Darlene BAKER A micrscopic examination will be performed if indicated. Normal [facility] Comment on above: Performed By: #### U WILLEM #### [facility] [address] [address] [address] Darlene Lucero Glucose Ql (U) Negative Normal NEGATIVE [facility] Comment on above: Performed By: #### U WILLEM #### [facility] [address] [place] [address] Dr. Darlene Lucero Hemoglobin Ql (U) TRACE-INTACT Abnormal NEGATIVE [facility] Comment on above: Performed By: #### U WILLEM #### [facility] [address] [address] [address] Darlene Lucero Ketones Ql (U) 15 mg/dl Abnormal NEGATIVE [facility] Comment on above: Performed By: #### U WILLEM #### [facility] [address] [address] [address] Darlene Lucero LEUKOCYTES Negative Normal NEGATIVE [facility] Comment on above: Performed By: #### U WILLEM #### [facility] [address] [place] [address] Dr. Darlene Lucero Nitrite Ql (U) Negative Normal NEGATIVE [facility] Comment on above: Performed By: #### U WILLEM #### [facility] [address] [place] [address] Dr. Darlene Lucero pH (U) 6.5 [pH] Normal 5-9 [facility] Comment on above: Performed By: #### U WILLEM #### [facility] [address] [place] [address] Dr. Darlene Lucero Protein (U) [Mass/Vol] 30 mg/dL Abnormal NEGATIVE/ TRACE [facility] Comment on above: Performed By: #### U WILLEM #### [facility] [address] [place] [address] Dr. Darlene Lucero SPEC GRAVITY 1.020 Normal 1.005-<=1.025 [facility] Comment on above: Performed By: #### U WILLEM #### [facility] [address] [place] [address] Dr. Darlene Lucero UR MICRO IND INDICATED Normal [facility] Comment on above: Performed By: #### U WILLEM #### [facility] [address] [place] [address] Dr. Darlene Lucero Urobilinogen Qn (U) 0.2 {Claudia'U}/dL Normal 0.2 - 1. 0 [facility] Comment on above: Performed By: #### U WILLEM #### [facility] [address] [place] [address] Dr. Darlene Lucero POINT OF CARE GLUCOSEon 08-14 Glucose [Mass/Vol] 147 mg/dL Critically high 74-[address] [facility] Comment on above: Performed By: #### B MP #### [facility] [address] [place] [address] Dr. Darlene Lucero PROF CHEM 8 (BAS METB)on Anion gap [Moles/Vol] 13.4 mmol/L Normal [facility] Comment on above: Performed By: #### U WILLEM #### [facility] [address] [place] [address] Dr. Darlene Lucero Calcium [Mass/Vol] 8.2 mg/dL Critically low 8.5-10.1 [facility] Comment on above: Performed By: #### U WILLEM #### [facility] [address] [address] [address] Darlene Lucero Chloride [Moles/Vol] 86 mmol/L Critically low 98-107 [facility] Comment on above: Performed By: #### U WILLEM #### [facility] [address] [address] [address] Darlene Lucero CO2 [Moles/Vol] 23.4 mmol/L Normal 21.0-32.0 [facility] Comment on above: Performed By: #### U WILLEM #### [facility] [address] [address] [address] Darlene Lucero Creatinine [Mass/Vol] 0.51 mg/dL Critically low 0.55-1.02 [facility] Comment on above: Performed By: #### U WILLEM #### [facility] [address] [address] [address] Darlene Lucero EGFR-AF SWEDISH >60 Normal >=60 [facility] Comment on above: Performed By: #### U WILLEM #### [facility] [address] [place] [address] Dr. Darlene Lucero EGFR-NON AF SWEDISH >60 Normal >=60 [facility] Comment on above: Performed By: #### U WILLEM #### [facility] [address] [address] [address] Darlene Lucero Glucose [Mass/Vol] 145 mg/dL Critically high 74-[address] [facility] Comment on above: Performed By: #### U WILLEM #### [facility] [address] [address] [address] Darlene Lucero Potassium [Moles/Vol] 3.8 mmol/L Normal 3.5-5.1 [facility] Comment on above: Performed By: #### U WILLEM #### [facility] [address] [address] [address] Darlene Lucero Sodium [Moles/Vol] 119 mmol/L Critically low 136-145 Th [facility] Comment on above: Result Comment: Test Repeated. Critical Value Verified Performed By: #### U WILLEM #### [facility] [address] [address] [address] Darlene Lucero Urea nitrogen [Mass/Vol] 11.0 mg/dL Normal 7.0-18.0 [facility] Comment on above: Performed By: #### U WILLEM #### [facility] [address] [address] [address] Darlene Lucero Urea nitrogen/Creatinine [Mass ratio] 21.6 mg/mg Normal [facility] Comment on above: Performed By: #### U WILLEM #### [facility] [address] [address] [address] Darlene Lucero Anion gap [Moles/Vol] 11.9 mmol/L Normal [facility] Comment on above: Performed By: #### B MP #### [facility] [address] [place] [address] Dr. Darlene Lucero Calcium [Mass/Vol] 8.0 mg/dL Critically low 8.5-10.1 Th [facility] Comment on above: Performed By: #### B MP #### [facility] [address] [place] [address] Dr. Darlene Lucero Chloride [Moles/Vol] 83 mmol/L Critically low 98-107 [facility] Comment on above: Performed By: #### B MP #### [facility] [address] [place] [address] Dr. Darlene Lucero CO2 [Moles/Vol] 24.9 mmol/L Normal 21.0-32.0 [facility] Comment on above: Performed By: #### B MP #### [facility] [address] [address] [address] Darlene Lucero Creatinine [Mass/Vol] 0.61 mg/dL Normal 0.55-1.02 [facility] Comment on above: Performed By: #### B MP #### [facility] [address] [place] [address] Dr. Darlene Lucero EGFR-AF SWEDISH >60 Normal >=60 [facility] Comment on above: Performed By: #### B MP #### [facility] [address] [address] [address] Darlene Lucero EGFR-NON AF SWEDISH >60 Normal >=60 [facility] Comment on above: Performed By: #### B MP #### [facility] [address] [address] [address] Dralene Lucero Glucose [Mass/Vol] 212 mg/dL Critically high 74-[address] [facility] Comment on above: Performed By: #### B MP #### [facility] [address] [address] [address] Darlene Lucero Potassium [Moles/Vol] 3.7 mmol/L Normal 3.5-5.1 [facility] Comment on above: Performed By: #### B MP #### [facility] [address] [address] [address] Darlene Lucero Sodium [Moles/Vol] 116 mmol/L Critically low 136-145 Th [facility] Comment on above: Performed By: #### B MP #### [facility] [address] [address] [address] Darlene Lucero Urea nitrogen [Mass/Vol] 12.0 mg/dL Normal 7.0-18.0 [facility] Comment on above: Performed By: #### B MP #### [facility] [address] [address] [address] Darlene Lucero Urea nitrogen/Creatinine [Mass ratio] 19.7 mg/mg Normal [facility] Comment on above: Performed By: #### B MP #### [facility] [address] [address] [address] Darlene Lucero Anion gap [Moles/Vol] 11.7 mmol/L Normal [facility] Comment on above: Performed By: #### B MP #### [facility] [address] [address] [address] Darlene Lucero Calcium [Mass/Vol] 8.0 mg/dL Critically low 8.5-10.1 Th [facility] Comment on above: Performed By: #### B MP #### [facility] [address] [address] [address] Darlene Lucero Chloride [Moles/Vol] 86 mmol/L Critically low 98-107 [facility] Comment on above: Performed By: #### B MP #### [facility] [address] [address] [address] Darlene Lucero CO2 [Moles/Vol] 27.6 mmol/L Normal 21.0-32.0 [facility] Comment on above: Performed By: #### B MP #### [facility] [address] [address] [address] Darlene Lucero Creatinine [Mass/Vol] 0.57 mg/dL Normal 0.55-1.02 [facility] Comment on above: Performed By: #### B MP #### [facility] [address] [address] [address] Darlene Lucero EGFR-AF SWEDISH >60 Normal >=60 [facility] Comment on above: Performed By: #### B MP #### [facility] [address] [place] [address] Dr. Darlene Lucero EGFR-NON AF SWEDISH >60 Normal >=60 [facility] Comment on above: Performed By: #### B MP #### [facility] [address] [place] [address] Dr. Darlene Lucero Glucose [Mass/Vol] 152 mg/dL Critically high 74-[address] [facility] Comment on above: Performed By: #### B MP #### [facility] [address] [place] [address] Dr. Darlene Lucero Potassium [Moles/Vol] 4.3 mmol/L Normal 3.5-5.1 [facility] Comment on above: Performed By: #### B MP #### [facility] [address] [place] [address] Dr. Darlene Lucero Sodium [Moles/Vol] 120 mmol/L Critically low 136-145 Th [facility] Comment on above: Performed By: #### B MP #### [facility] [address] [place] [address] Dr. Darlene Lucero Urea nitrogen [Mass/Vol] 12.0 mg/dL Normal 7.0-18.0 [facility] Comment on above: Performed By: #### B MP #### [facility] [address] [place] [address] Dr. Darlene Lucero Urea nitrogen/Creatinine [Mass ratio] 21.1 mg/mg Normal [facility] Comment on above: Performed By: #### B MP #### [facility] [address] [address] [address] Darlene Lucero Anion gap [Moles/Vol] 10.2 mmol/L Normal [facility] Comment on above: Performed By: #### B MP #### [facility] [address] [address] [address] Darlene Lucero Calcium [Mass/Vol] 8.6 mg/dL Normal 8.5-10.1 [facility] Comment on above: Performed By: #### B MP #### [facility] [address] [address] [address] Darlene Lucero Chloride [Moles/Vol] 78 mmol/L Critically low 98-107 [facility] Comment on above: Performed By: #### B MP #### [facility] [address] [address] [address] Darlene Lucero CO2 [Moles/Vol] 29.6 mmol/L Normal 21.0-32.0 [facility] Comment on above: Performed By: #### B MP #### [facility] [address] [address] [address] Darlene Lucero Creatinine [Mass/Vol] 0.70 mg/dL Normal 0.55-1.02 [facility] Comment on above: Performed By: #### B MP #### [facility] [address] [address] [address] Darlene Lucero EGFR-AF SWEDISH >60 Normal >=60 [facility] Comment on above: Performed By: #### B MP #### [facility] [address] [address] [address] Darlene Lucero EGFR-NON AF SWEDISH >60 Normal >=60 [facility] Comment on above: Performed By: #### B MP #### [facility] [address] [address] [address] Darlene Lucero Glucose [Mass/Vol] 116 mg/dL Critically high 74-106 [facility] Comment on above: Performed By: #### B MP #### [facility] [address] [address] [address] Darlene Lucero Potassium [Moles/Vol] 3.8 mmol/L Normal 3.5-5.1 [facility] Comment on above: Performed By: #### B MP #### [facility] [address] [address] [address] Darlene Lucero Sodium [Moles/Vol] 114 mmol/L Critically low 136-145 Th [facility] Comment on above: Performed By: #### B MP #### [facility] [address] [address] [address] Darlene Lucero Urea nitrogen [Mass/Vol] 17.0 mg/dL Normal 7.0-18.0 [facility] Comment on above: Performed By: #### B MP #### [facility] [address] [address] [address] Darlene Lucero Urea nitrogen/Creatinine [Mass ratio] 24.3 mg/mg Normal [facility] Comment on above: Performed By: #### B MP #### [facility] [address] [address] [address] Darlene Lucero SODIUM RANDOM URINEon 2021 Sodium (U) [Moles/Vol] 61 mmol/L Normal 30-90 [facility] Comment on above: Performed By: #### U WILLEM #### [facility] [address] [address] [address] Darlene Lucero TROPONIN, HIGH SENSITIVITYon 08-31-2021 HSTROP 14.6 pg/mL Normal 4.0-51.3 [facility] Comment on above: Result Comment: CUT- OFF POINTS HAVE BEEN ESTABLISHED BASED ON THE FOURTH UNIVERSAL DEFINITIONS OF MYOCARDIAL INFARCTION. THE UPPER REFERENCE LIMIT (URL) OF TROPONIN, DEFINED THE 99TH PERCENTILE OF cTnI DISTRIBUTION IN A REFERENCE POPULATION, HAS BEEN CONFIRMED THE DECISION THRESHOLD FOR [place] DIAGNOSIS. Performed By: #### B MP #### [facility] [address] [address] [address] Darlene Lucero TSHon 08-31-2021 TSH 1.053 uIU/mL Normal 0.358-3.740 [facility] Comment on above: Performed By: #### B MP #### [facility] [address] [place] [address] Dr. Darlene Lucero TSH RANGE SEE BELOW Normal [facility] Comment on above: Result Comment: <0.3 4 UIU/ml HYPERTHYROID 0.34-5.60 UIU/ml EUTHYROID >5.60 UIU/ml HYPOTHYROID Performed By: #### B MP #### [facility] [address] [place] [address] Dr. Darlene Lucero URIC ACID SERUMon 08-31-2021 Urate [Mass/Vol] 1.4 mg/dL Critically low 2.6-6.0 [facility] Comment on above: Performed By: #### U WILLEM #### [facility] [address] [place] [address] Dr. Darlene Lucero URINE MICROSCOPIC ONLYon BACTERIA NONE SEEN Normal NONE SEEN [facility] Comment on above: Performed By: #### O SMOU #### [facility] [address] [place] [address] Dr. Darlene Lucero Bacteria identified Cx Nom (U) NOT INDICATED Normal [facility] Comment on above: Performed By: #### O SMOU #### [facility] [address] [place] [address] Dr. Darlene Lucero CAST NONE SEEN Normal NONE SEEN [facility] Comment on above: Performed By: #### O SMOU #### [facility] [address] [place] [address] Dr. Darlene Lucero Crystals LM Nom (Urine sed) NONE SEEN Normal NONE SEEN [facility] Comment on above: Performed By: #### O SMOU #### [facility] [address] [place] [address] Dr. Darlene Lucero Epithelial cells LM Ql (Urine sed) FEW Abnormal NONE SEEN /RARE [facility] Comment on above: Performed By: #### O SMOU #### [facility] [address] [place] [address] Dr. Darlene Lucero MUCOUS TRACE Abnormal NONE SEEN [facility] Comment on above: Performed By: #### O SMOU #### [facility] [address] [address] [address] Darlene Lucero RBC 0-2 Normal 0-2 [facility] Comment on above: Performed By: #### O SMOU #### [facility] [address] [place] [address] Dr. Darlene Lucero WBC NONE SEEN Normal NONE SEEN [facility] Comment on above: Performed By: #### O SMOU #### [facility] [address] [place] [address] Dr. Darlene Lucero URINE T PROTEIN CREAT RATIOo 08-31-2021 Protein (U) [Mass/Vol] 67.7 mg/dL Critically high <=12.0 [facility] Comment on above: Performed By: #### B MP #### [facility] [address] [place] [address] Dr. Darlene Lucero UR PROT CREAT RAT 0.75 Normal [facility] Comment on above: Performed By: #### B MP #### [facility] [address] [place] [address] Dr. Darlene Lucero URINE CREAT 89.84 mg/dL Normal 20.00-300.00 [facility] Comment on above: Performed By: #### B MP #### [facility] [address] [place] [address] Dr. Darlene Lucero XR CHEST 1 Von [...] by: CHAYITO SOLIS Date: 2021-08-31 09:07 Normal [facility] Encounters Encounter Date Encounter Type Care Provider Facility Start: 01-04-2024 End: 01-04-2024 ambulatory FLACO RESENDIZ Not Available Start: 08-24-2023 End: 08-24-2023 ambulatory FLACO RESENDIZ [...] Facility:[facility] Start: 05-20-2022 End: 05-21-[address] FLCAO RESENDIZ Facility:[facility] Start: 03-25-2022 End: 03-26-2022 ambulatory [...] Visit [facility] [address] [facility] [address] [place] [id number] Flaco Resendiz MD [address] [facility] [address] [place] [address] [facility] Immunizations Immunization Date Immunization Notes Care Provider Fa cili 01-13-2022 Influenza, High-dose Seasonal, Quadrivalent, Preservative Free Flaco Resendiz MD Work Phone: [facility] 01-29-2021 Influenza, High-dose Seasonal, Quadrivalent, Preservative Free Flaco Rseendiz MD Work Phone: [facility] 02-28-2020 influenza, high dose seasonal, preservative-free Flaco Resendiz MD Work Phone: [facility] 02-28-2020 zoster vaccine recombinant D cailin Resendiz MD Work Phone: [facility] 01-12-2019 influenza, high dose seasonal, preservative-free Flaco Resendiz MD Work Phone: [facility] 12-07-2017 Influenza, High-dose Seasonal, Quadrivalent, Preservative Free Flaco Resendiz MD Work Phone: [facility] 12-18-2016 influenza, high dose seasonal, preservative-free Flaco Resendiz MD Work Phone: [facility] 03-22-2016 pneumococcal conjuga te vaccine, 13 valevelyn Resendiz MD Work Phone: [facility] 03-15-2016 influenza, injectabl e, quadrivalent, preservative free Flaco Resendiz MD Work Phone: [facility] 02-15-2015 influenza, injectabl e, quadrivalent, preservative free Flaco Resendiz MD Work Phone: [facility] 04-30-2012 pneumococcal polysaccharide vaccine, 23 valent Flaco Resendiz MD Work Phone: [facility] 01-14-2010 seasonal influenza, intradermal, preservative free Flaco Resendiz MD Work Phone: [facility] Payers Date Payer Category Payer Medicare MEDICARE MEDICAR E RAILROAD [id number] 1999-Present [employer] MEDICARE [address] [address] [place] [address] Medicare [id number] 1959 Medicare [id number] 1946 Unknown [id number] 1946 Unknown [id number] 2.16.840.1.542106.3.579.2.593 1946 Unknown [id number] 2.16.840.1.933170.3.579.2.593 1946 Unknown [id number] 2.16.840.1.619230.3.579.2.593 1946 Unknown [id number] 2.16.840.1.931019.3.579.2.593 1946 Unknown [id number] 2.16.840.1.442326.3.579.2.593 1946 Unknown [id number] 2.16.840.1.293253.3.579.2.593 1946 Unknown [id number] 2.16.840.1.023797.3.579.2.125 9 1946 Unknown [id number] 2.16.840.1.157310.3.579.2.125 9 1946 Unknown [id number] 2.16.840.1.436453.3.579.2.125 9 1946 Unknown [id number] 2.16.840.1.405312.3.579.2.125 9 Social History Date Type Detail Facility Start: 09-27-2022 Tobacco smoking status HIIS Ex-smoke r [facility] Healthcare End: 09-25-2018 History of tobacco use Current smoker 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 [facility] [facility]. provides no warranty or guarantee of the accuracy or completeness of information in this document.
[2024-03-21 07:47] LABS: Basophils Percent Auto 0.6 % (0.2-2.0); Eosinophils Absolute Auto 0.1 10^3/uL (0.0-0.7); Eosinophils Percent Auto 2.5 % (0.9-7.0); Hematocrit 37.3 % (36.0-48.0); Hemoglobin 12.1 g/dL (12.0-16.0); Immature Granulocytes Abs Auto 0.01 10^3/uL (0.00-0.03); Immature Granulocytes Pct Auto 0.2 % (0.0-0.5); Lymphocytes Absolute Auto 1.9 10^3/uL (1.2-3.8); Lymphocytes Percent Auto 36.3 % (20.5-60.0); Mean Corpuscular HGB Conc 32.4 g/dL (29.9-35.2); Mean Corpuscular Hemoglobin 29.7 pg (26.7-34.0); Mean Corpuscular Volume 91.6 fL (81.0-99.0); Mean Platelet Volume 8.7 fL (9.5-13.5); Monocytes Absolute Auto 0.6 10^3/uL (0.3-0.8); Monocytes Percent Auto 11.1 % (1.7-12.0); Neutrophils Absolute Auto 2.6 10^3/uL (1.4-6.5); Neutrophils Percent Auto 49.3 % (43.0-75.0); Platelet Count 399 10^3/uL (150-450); Red Blood Count 4.07 10^6/uL (4.20-5.40); Red Cell Distribution Width 12.8 % (11.0-15.0); White Blood Count 5.2 10^3/uL (4.0-11.0)
[2024-03-21 09:29] LABS: Alanine Aminotransferase 19 U/L (14-59); Albumin Globulin Ratio 0.9; Albumin Level 3.5 g/dL (3.4-5.0); Alkaline Phosphatase 59 U/L (46-116); Anion Gap 7.2; Aspartate Amino Transferase 15 U/L (15-37); BUN Creatinine Ratio 25.4; Bilirubin Total 0.4 mg/dL (0.2-1.0); Calcium 9.1 mg/dL (8.5-10.1); Carbon Dioxide 33.3 mmol/L (21.0-32.0); Chloride 99 mmol/L (98-107); Estimated GFR (African America >60 (>=60 mL/min/1.73m^2); Estimated GFR (Non-African Ame >60 (>=60 mL/min/1.73m^2); Globulin 3.8 g/dL; Glucose 92 mg/dL (74-106); Potassium 4.5 mmol/L (3.5-5.1); Sodium 135 mmol/L (136-145); Total Protein 7.3 g/dL (6.4-8.2)
== END 2024-03-21 07:32 | disposition home or self-care (01) ==
LOC: LAB 07:31
PROVIDERS: PCP Internal Medicine; Visit Provider Internal Medicine
DX: E87.1 Hypo-osmolality and hyponatremia (principal); J43.1 Panlobular emphysema; I10 Essential (primary) hypertension; E03.9 Hypothyroidism, unspecified
CPT/HCPCS: 36415; 80053; 85025

== ENCOUNTER 2024-07-09 08:02 | Outpatient (OUT) | payer MEDICARE, SELFPAY ==
--- OUTSIDE RECORDS SUMMARY | 2024-07-09 08:21 | XMS_ITS | CCD ---
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 Name Role Phone CHERY ., DR OLENA [...] Primary Care Unavailable Flaco Resendiz MD Unavailable [phone] Flaco Resendiz MD Primary Care Provider FLACO RESENDIZ Attending Unavailable FLACO RESENDIZ Attending Unavailable FLACO RESENDIZ Attending Unavailable FLACO RESENDIZ Attending Unavailable Allergies Allergy Classification Reported Allergen(s) Allergy Type Date of Onset Reaction(s) Facility (6 sources) Gentamicin Drug Allergy 02-28-2021 Unknown [facility] Medications Current Medications Medication Drug Class(es) Dates Sig (Normalized) Sig (Original) albuterol 0.83 mg/ml inhalation solution (12 sources) beta2-Adrenergic Agonist Start: 12-21-2023 End: 03-20-2024 albuterol (2.5 MG/3ML) 0.083% nebulizer solution Indications: Panlobular emphysema (CMS/HCC) , COPD with acute exacerbation (CMS/HCC) Take 3 mL (2.5 mg) by nebulization every 6 (six) hours if needed for wheezing or shortness of breath 75 mL 3 12/21/2023 Active Start: 10-08-2023 End: 01-06-2024 take 2 puff(s) by inhalation every six hours for wheezing albuterol HFA 90 mcg/act inhaler Indications: Chronic obstructive pulmonary disease, unspecified COPD type (CMS/HCC) Inhale 2 puffs every 6 (six) hours if needed for wheezing or shortness of breath 18 g 3 10/08/2023 Active Start: 01-01-2023 take 2 puff(s) by in halation every six hours for wheezing albuterol HFA [...] 03/24/2022 Active ALPRAZolam 0.5 mg oral tablet (8 sources) Benzodiazepine Start: 04-11-2024 take 1 tablet by mouth three times daily as needed for anxiety ALPRAZolam (Xanax) 0.5 MG tablet Indications: Generalized anxiety disorder (CMS/HCC) Take 1 tablet (0.5 mg) by mouth 3 (three) times a day as needed for anxiety 90 tablet 3 04/11/2024 Active Start: 04-11-2024 take 1 tablet by ravin th three times daily as needed for anxiety ALPRAZolam (Xanax) 0.5 MG tablet Indications: Generalized anxiety disorder (CMS/HCC) Take 1 tablet (0.5 mg) by mouth 3 (three) times a day as needed for anxiety 90 tablet 3 04/11/2024 Active Start: 08-27-2023 End: 04-11-2024 take 1 tablet by mouth three times daily as needed for anxiety ALPRAZolam (Xanax) 0.5 MG tablet Indications: Generalized anxiety disorder (CMS/HCC) Take 1 tablet (0.5 mg) by mouth 3 (three) times a day as needed for anxiety Do not start before August 27, 2023. 90 tablet 3 08/27/2023 04/11/2024 Discontinued (Reorder) Start: 05-07-2023 take 1 tablet by ravin th three times daily as needed for anxiety ALPRAZolam (Xanax) 0.5 MG tablet Indications: Generalized anxiety disorder (CMS/HCC) Take 1 tablet (0.5 mg) by mouth 3 (three) times a day as needed for anxiety 90 tablet 0 05/07/2023 Active amLODIPine 5 mg oral tablet (6 sources) Dihydropyridine Calcium Channel Ramirez Start: 10-22-2023 take 1 tablet by mouth once daily amLODIPine (Norvasc) 5 MG tablet Indications: Essential hypertension (CMS/HCC) TAKE ONE TABLET BY MOUTH DAILY 90 tablet 4 10/22/2023 Active Start: 02-08-2022 take 1 tablet by ravin th once daily amLODIPine (Norvasc) 5 MG tablet Take 5 mg by mouth 1 (one) time each day at the same time. 0 02/08/2022 Active aspirin 81 mg delayed release oral tablet (6 sources) Platelet Aggregation Inhibitor, Nonsteroidal Anti-inflammatory Drug take 1 tablet by mouth in the morning aspirin 81 MG EC tablet Take 81 mg by mouth in the morning. Active 30 actuat fluticasone furoate 0.1 mg/actuat / umeclidinium 0.0625 mg/actuat / vilanterol 0.025 mg/actuat dry powder inhaler (6 sources) Anticholinergic, Corticosteroid, beta2-Adrenergic Agonist Start: take 1 puff(s) by inhalation once daily Fluticasone-Umecl idin-Vilant (Trelegy Ellipta) 100-62.5-25 MCG/ACT aerosol powder Indications: Panlobular emphysema (CMS/HCC) Inhale 1 puff 1 (one) time each day at the same time 3 each 3 08/01/2023 Active take 1 puff(s) by in halation once daily Kqfbyuvovbu-Bxdnhnblx-Iwykli (Trelegy El lipta) 100-62.5-25 MCG/ACT aerosol powder Inhale 1 puff 1 (one) time each day at the same time. 0 Active ibuprofen 200 mg oral tablet (6 sources) Nonsteroidal Anti-inflammatory Drug take 1 tablet by mouth every six hours as needed ibuprofen 200 MG tablet Take 200 mg by mouth every 6 (six) hours if needed. Active levothyroxine sodium 0.088 mg oral tablet (6 sources) l-Thyroxine Start: 2023 End: 2024 take 1 tablet by mouth once daily levothyroxine (Synthroid, Levoxyl) 88 MCG tablet Indications: Pure hypercholesterolemia (CMS/HCC) , Postablative hypothyroidism (CMS/HCC) Take 1 tablet (88 mcg) by mouth Daily 90 tablet 3 10/22/2023 10/21/2024 Active take 1 tablet by mouth before me altime levothyroxine (Synthroid, Levoxyl) 88 MCG tablet Take 88 mcg by mouth in the morning. Take before meals. 0 Active losartan potassium 50 mg oral tablet (6 sources) Angiotensin 2 Receptor Ramirez Start: 04-05-2023 take [...] 0 03/24/2022 Active Multiple Vitamin (multivitamin) capsule (6 sources) take 1 capsule by mouth in the morning Multiple Vitamin (multivitamin) capsule Take 1 capsule by mouth in the morning. Active take 1 capsule by mouth in the m orning Multiple Vitamin (multivitamin) capsule Take 1 capsule by mouth in the morning. 0 Active OXYGEN-HELIUM IN (6 sources) OXYGEN-HELIUM IN Inhale 1 (one) time each day at the same time. Active OXYGEN-HELIUM IN Inhale 1 (one) time each day at the same time. 0 Active polyethylene glycol 3350 00342 mg powder for oral solution (6 sources) Osmotic Laxative polyethylene gl ycol, PEG, 3350 (MiraLax) 17 GM/SCOOP powder Take 17 g by mouth 1 (one) time. Active sodium chloride 1000 mg oral tablet (6 sources) Start: 03-20-2023 End: 07-24-2024 take 1 tablet by mouth once daily sodium chloride 1 g tablet Indications: Hyponatremia Take 1 tablet (1 g) by mouth Daily 100 tablet 3 06/20/2023 07/24/2024 Active Problems Active Problems Problem Classification Problem Date Documented Da te Episodic/Chronic Adjustment disorders (6 sources) Grief finding; Translations: [Adjustment disorder with depressed mood] Onset: 10-25-2022 10-25-2022 Chronic Anxiety disorders (9 sources) Generalized anxiety disorder; Translations: [Generalized anxiety disorder] Onset: 09-07-2021 10-25-2022 Chronic Chronic obstructive pulmonary disease and bronchiectasis (19 sources) Chronic obstructive pulmonary disease, unspecified; Translations: [Chronic obstructive pulmonary disease with (acute) exacerbation] Onset: 09-07-2021 Resolved: 06-01-2023 10-25-2022 Chronic Complications of surgical procedures or medical care (8 sources) Postablative hypothyroidism; Translations: [Postprocedural hypothyroidism] Onset: 10-25-2022 10-25-2022 Chronic Conditions associated with dizziness or vertigo (6 sources) Active cochlear Meniere's disease; Translations: [Meniere's disease, unspecified ear] Onset: 10-25-2022 10-25-2022 Chronic Disorders of lipid metabolism (16 sources) Pure hypercholesterolemi a; Translations: [Pure hypercholesterolemi a, unspecified] Onset: 10-25-2022 10-25-2022 Chronic Essential hypertension (9 sources) Essential (primary) hypertension; Translations: [Essential hypertension] Onset: 09-07-2021 10-25-2022 Chronic Fluid and electrolyte disorders (15 sources) Hypo-osmolality and hyponatremia; Translations: [Hyponatremia] Onset: 09-07-2021 Episodic Miscellaneous mental health disorders (5 sources) Chronic insomnia; Translations: [Psychophysiologic insomnia] Onset: 02-16-2024 02-16-2024 Chronic Mood disorders (7 sources) Major depressive disorder, single episode, unspecified; Translations: [Atypical depressive disorder] Onset: 09-07-2021 10-25-2022 Chronic Nutritional deficiencies (6 sources) Vitamin D deficiency; Translations: [Vitamin D deficiency, unspecified] Onset: 10-25-2022 10-25-2022 Chronic Osteoarthritis (6 sources) Degenerative joint disease involving multiple joints; Translations: [Polyosteoarthritis , unspecified] Onset: 10-25-2022 10-25-2022 Chronic Osteoporosis (6 sources) Disuse osteoporosis; Translations: [Other osteoporosis without current [...] Spondylosis; intervertebral disc disorders; other back problems (6 sources) Lumbar spondylosis; Translations: [Spondylosis without myelopathy or radiculopathy, lumbar region] Onset: 10-25-2022 10-25-2022 Chronic Substance-related disorders (12 sources) Nicotine dependence; Translations: [Nicotine dependence, cigarettes, uncomplicated] Onset: 10-25-2022 10-25-2022 Chronic Viral infection (3 sources) COVID-19; Translations: [COVID-19] Onset: 08-31-2021 Past or Other Problems Problem Classification Problem Date Documented Date Episodic/Chronic Other aftercare (1 source) Other longterm (current) drug therapy; Translations: [OTH ADMITTING OFFICER CURRENT DRUG THERAPY] Onset: 09-07-2021 Episodic Other connective tissue disease (1 source) Muscle weakness (generalized); Translations: [MUSCLE WEAKNESS GENERALIZED] Onset: 09-07-2021 Episodic Other fractures (6 sources) Compression fracture of vertebral column; Translations: [Collapsed vertebra, not elsewhere classified, site unspecified, initial encounter for fracture] Onset: 10-25-2022 10-25-2022 Episodic Other nervous system disorders (6 sources) Abnormal gait; Translations: [Unspecified abnormalities of gait and mobility] Onset: 10-25-2022 10-25-2022 Episodic Respiratory failure; insufficiency; arrest (adult) (6 sources) Hypoxemic respiratory failure; Translations: [Respiratory failure, unspecified with hypoxia] Onset: 10-25-2022 10-25-2022 Episodic Thyroid disorders (9 sources) Hypothyroidism, unspecified; Translations: [Acquired hypothyroidism] Onset: 09-07-2021 Resolved: 06-01-2023 10-25-2022 Chronic Results Test Name Value Interpretation Reference Range Facility ALL CBC WITH AUTO DIFFon BASOPHILS ABSOLUTE AUTO 0 [facility] Basophils/100 WBC (Bld) 0.6 % 0.2 - 2.0 % [facility] Eosinophils/100 WBC (Bld) 2.5 % 0.9 - 7.0 % [facility] Erythrocyte distribution width (RBC) [Ratio] 12.8 % 11.0 - 15.0 % [facility] Hematocrit (Bld) [Volume fraction] 37.3 % 36.0 - 48.0 % [facility] Hemoglobin (Bld) [Mass/Vol] 12.1 g/dL 12.0 - 16.0 g/dL [facility] IMMATURE GRANULOCYTES ABS AUTO 0.01 [facility] Immature granulocytes/100 WBC (Bld) 0.2 % 0.0 - 0.5 % [facility] Interpretation and review of laboratory results Abnormal [facility] LYMPHOCYTES ABSOLUTE AUTO 1.9 [facility] Lymphocytes/100 WBC (Bld) 36.3 % 20.5 - 60.0 % [facility] MCH (RBC) [Entitic mass] 29.7 pg 26.7 - 34.0 pg [facility] MCHC (RBC) [Mass/Vol] 32.4 g/dL 29.9 - 35.2 g/dL [facility] MCV (RBC) [Entitic vol] 91.6 fL 81.0 - 99.0 fL [facility] MONOCYTES ABSOLUTE AUTO 0.6 [facility] Monocytes/100 WBC (Bld) 11.1 % 1.7 - 12.0 % [facility] NEUTROPHILS ABSOLUTE AUTO 2.6 [facility] Neutrophils/100 WBC (Bld) 49.3 % 43.0 - 75.0 % [facility] Platelet mean volume (Bld) [Entitic vol] 8.7 fL Low 9.5 - 13.5 fL [facility] EO # 0.1 [facility] PLT 399 [facility] RBC 4.07 Low [facility] WBC 5.2 [facility] BASIC METABOLIC PANELon 05-18-2023 Anion gap [Moles/Vol] 9.7 mmol/L [facility] Calcium [Mass/Vol] 9.2 mg/dL 8.5 - 10. 1 mg/dL [facility] Chloride [Moles/Vol] 99 mmol/L 98 - 107 mmol/L [facility] CO2 [Moles/Vol] 31.4 mmol/L 21.0 - 32.0 mmol/L [facility] Creatinine [Mass/Vol] 0.63 mg/dL 0.55 - 1.02 mg/dL [facility] GFR/1.73 sq M.predicted CKD-EPI (S/P/Bld) [Vol rate/Area] >60 60 - PINF [facility] Glucose [Mass/Vol] 94 mg/dL 74 - 106 mg/dL [facility] Potassium [Moles/Vol] 4.1 mmol/L 3.5 - 5.1 mmol/L [facility] Sodium [Moles/Vol] 136 mmol/L 136 - 145 mmol/L [facility] TB EGFR-NON AF ALBANIAN >60 60 - PINF [facility] Urea nitrogen [Mass/Vol] 18.0 mg/dL 7.0 - 18.0 mg/dL [facility] Urea nitrogen/Creatinine [Mass ratio] 28.6 mg/mg [facility] PROF CHEM 8 (BAS METB)on Anion gap [Moles/Vol] 6.9 mmol/L Normal [facility] Comment on above: Performed By: #### B MP #### [facility] [address], [place] [address] Dr. Darlene Lucero Calcium [Mass/Vol] 9.1 mg/dL Normal 8.5-10.[address] [facility] Comment on above: Performed By: #### B MP #### [facility] [address], [place] [address] Dr. Darlene Lucero Chloride [Moles/Vol] 96 mmol/L Critically low 98-107 [facility] Comment on above: Performed By: #### B MP #### [facility] [address] [place] [address] [address] Darlene Lucero CO2 [Moles/Vol] 33.6 mmol/L Critically high 21.0-32.0 [facility] Comment on above: Performed By: #### B MP #### [facility] [address] [address] [address] Darlene Lucero Creatinine [Mass/Vol] 0.69 mg/dL Normal 0.55-1.02 [facility] Comment on above: Performed By: #### B MP #### [facility] [address] [address] [address] Darlene Lucero EGFR-AF ALBANIAN >60 Normal >=60 [facility] Comment on above: Performed By: #### B MP #### [facility] [address] [address] [address] Darlene Lucero EGFR-NON AF ALBANIAN >60 Normal >=60 [facility] Comment on above: Performed By: #### B MP #### [facility] [address] [address] [address] Darlene Lucero Glucose [Mass/Vol] 92 mg/dL Normal 74-[address] [facility] Comment on above: Performed By: #### B MP #### [facility] [address] [address] [address] Darlene Lucero Potassium [Moles/Vol] 4.5 mmol/L Normal 3.5-5.1 [facility] Comment on above: Performed By: #### B MP #### [facility] [address] [address] [address] Darlene Lucero Sodium [Moles/Vol] 132 mmol/L Critically low 136-145 [facility] Comment on above: Performed By: #### B MP #### [facility] [address] [address] [address] Darlene Lucero Urea nitrogen [Mass/Vol] 18.0 mg/dL Normal 7.0-18.0 [facility] Comment on above: Performed By: #### B MP #### [facility] [address] [address] [address] Darlene Lucero Urea nitrogen/Creatinine [Mass ratio] 26.1 mg/mg Normal [facility] Comment on above: Performed By: #### B MP #### [facility] [address] [address] [address] Darlene Lucero PROF CHEM 8 (BAS METB)on Anion gap [Moles/Vol] 7.1 mmol/L Normal [facility] Comment on above: Performed By: #### B MP #### [facility] [address] [address] [address] Darlene Lucero Calcium [Mass/Vol] 9.4 mg/dL Normal 8.5-10.[address] [facility] Comment on above: Performed By: #### B MP #### [facility] [address] [place] [address] Dr. Darlene Lucero Chloride [Moles/Vol] 95 mmol/L Critically low 98-107 [facility] Comment on above: Performed By: #### B MP #### [facility] [address] [address] [address] Darlene Lucero CO2 [Moles/Vol] 34.3 mmol/L Critically high 21.0-32.0 [facility] Comment on above: Performed By: #### B MP #### [facility] [address] [place] [address] Dr. Darlene Lucero Creatinine [Mass/Vol] 0.52 mg/dL Critically low 0.55-1.02 [facility] Comment on above: Performed By: #### B MP #### [facility] [address] [address] [address] Darlene Lucero EGFR-AF ALBANIAN >60 Normal >=60 [facility] Comment on above: Performed By: #### B MP #### [facility] [address] [address] [address] Darlene Lucero EGFR-NON AF ALBANIAN >60 Normal >=60 [facility] Comment on above: Performed By: #### B MP #### [facility] [address] [address] [address] Darlene Lucero Glucose [Mass/Vol] 111 mg/dL Critically high 74-106 [facility] Comment on above: Performed By: #### B MP #### [facility] [address] [address] [address] Darlene Lucero Potassium [Moles/Vol] 4.4 mmol/L Normal 3.5-5.1 [facility] Comment on above: Performed By: #### B MP #### [facility] [address] [address] [address] Darlene Lucero Sodium [Moles/Vol] 132 mmol/L Critically low 136-145 [facility] Comment on above: Performed By: #### B MP #### [facility] [address] [place] [address] Dr. Darlene Lucero Urea nitrogen [Mass/Vol] 16.0 mg/dL Normal 7.0-18.0 [facility] Comment on above: Performed By: #### B MP #### [facility] [address] [place] [address] Dr. Darlene Lucero Urea nitrogen/Creatinine [Mass ratio] 30.8 mg/mg Normal [facility] Comment on above: Performed By: #### B MP #### [facility] [address] [place] [address] Dr. Darlene Lucero PROF CHEM 8 (BAS METB)on Anion gap [Moles/Vol] 8.6 mmol/L Normal [facility] Comment on above: Performed By: #### O SMOU #### [facility] [address] [place] [address] Dr. Darlene Lucero Calcium [Mass/Vol] 9.3 mg/dL Normal 8.5-10.[address] [facility] Comment on above: Performed By: #### O SMOU #### [facility] [address] [place] [address] Dr. Darlene Lucero Chloride [Moles/Vol] 94 mmol/L Critically low 98-107 [facility] Comment on above: Performed By: #### O SMOU #### [facility] [address] [place] [address] Dr. Darlene Lucero CO2 [Moles/Vol] 33.0 mmol/L Critically high 21.0-32.0 [facility] Comment on above: Performed By: #### O SMOU #### [facility] [address] [place] [address] Dr. Darlene Lucero Creatinine [Mass/Vol] 0.64 mg/dL Normal 0.55-1.02 [facility] Comment on above: Performed By: #### O SMOU #### [facility] [address] [place] [address] Dr. Darlene Lucero EGFR-AF ALBANIAN >60 Normal >=60 [facility] Comment on above: Performed By: #### O SMOU #### [facility] [address] [place] [address] Dr. Darlene Lucero EGFR-NON AF ALBANIAN >60 Normal >=60 [facility] Comment on above: Performed By: #### O SMOU #### [facility] [address] [place] [address] Dr. Darlene Lucero Glucose [Mass/Vol] 134 mg/dL Critically high 74-106 [facility] Comment on above: Performed By: #### O SMOU #### [facility] [address] [place] [address] Dr. Darlene Lucero Potassium [Moles/Vol] 4.6 mmol/L Normal 3.5-5.1 [facility] Comment on above: Performed By: #### O SMOU #### [facility] [address] [place] [address] Dr. Darlene Lucero Sodium [Moles/Vol] 131 mmol/L Critically low 136-145 [facility] Comment on above: Performed By: #### O SMOU #### [facility] [address] [place] [address] Dr. Darlene Lucero Urea nitrogen [Mass/Vol] 10.0 mg/dL Normal 7.0-18.0 [facility] Comment on above: Performed By: #### O SMOU #### [facility] [address] [place] [address] Dr. Darlene Lucero Urea nitrogen/Creatinine [Mass ratio] 15.6 mg/mg Normal [facility] Comment on above: Performed By: #### O SMOU #### [facility] [address] [place] [address] Dr. Darlene Lucero PROF CHEM 8 (BAS METB)on Anion gap [Moles/Vol] 5.9 mmol/L Normal [facility] Comment on above: Performed By: #### B MP #### [facility] [address] [place] [address] Dr. Darlene Lucero Calcium [Mass/Vol] 9.0 mg/dL Normal 8.5-10.[address] [facility] Comment on above: Performed By: #### B MP #### [facility] [address] [place] [address] Dr. Darlene Lucero Chloride [Moles/Vol] 96 mmol/L Critically low 98-107 [facility] Comment on above: Performed By: #### B MP #### [facility] [address] [place] [address] Dr. Darlene Lucero CO2 [Moles/Vol] 31.5 mmol/L Normal 21.0-32.0 [facility] Comment on above: Performed By: #### B MP #### [facility] [address] [place] [address] Dr. Darlene Lucero Creatinine [Mass/Vol] 0.57 mg/dL Normal 0.55-1.02 [facility] Comment on above: Performed By: #### B MP #### [facility] [address] [place] [address] Dr. Darlene Lucero EGFR-AF ALBANIAN >60 Normal >=60 [facility] Comment on above: Performed By: #### B MP #### [facility] [address] [place] [address] Dr. Darlene Lucero EGFR-NON AF ALBANIAN >60 Normal >=60 [facility] Comment on above: Performed By: #### B MP #### [facility] [address] [place] [address] Dr. Darlene Lucero Glucose [Mass/Vol] 94 mg/dL Normal 74-106 [facility] Comment on above: Performed By: #### B MP #### [facility] [address] [place] [address] Dr. Darlene Lucero Potassium [Moles/Vol] 4.4 mmol/L Normal 3.5-5.1 [facility] Comment on above: Performed By: #### B MP #### [facility] [address] [place] [address] Dr. Darlene Lucero Sodium [Moles/Vol] 129 mmol/L Critically low 136-145 [facility] Comment on above: Performed By: #### B MP #### [facility] [address] [place] [address] Dr. Darlene Lucero Urea nitrogen [Mass/Vol] 18.0 mg/dL Normal 7.0-18.0 [facility] Comment on above: Performed By: #### B MP #### [facility] [address] [place] [address] Dr. Darlene Lucero Urea nitrogen/Creatinine [Mass ratio] 31.6 mg/mg Normal [facility] Comment on above: Performed By: #### B MP #### [facility] [address] [place] [address] Dr. Darlene Lucero PROF 14(COMP METB)on 022 Albumin [Mass/Vol] 3.4 g/dL Normal 3.4-5.[address] [facility] Comment on above: Performed By: #### B MP #### [facility] [address] [place] [address] Dr. Darlene Lucero Albumin/Globulin [Mass ratio] 0.9 {ratio} Normal [facility] Comment on above: Performed By: #### B MP #### [facility] [address] [place] [address] Dr. Darlene Lucero ALP [Catalytic activity/Vol] 63 U/L Normal 46-116 [facility] Comment on above: Performed By: #### B MP #### [facility] [address] [place] [address] Dr. Darlene Lucero ALT [Catalytic activity/Vol] 16 U/L Normal 14-59 [facility] Comment on above: Performed By: #### B MP #### [facility] [address] [address] [address] Darlene Lucero Anion gap [Moles/Vol] 11.5 mmol/L Normal [facility] Comment on above: Performed By: #### B MP #### [facility] [address] [address] [address] Darlene Lucero AST [Catalytic activity/Vol] 12 U/L Critically low 15-37 [facility] Comment on above: Performed By: #### B MP #### [facility] [address] [address] [address] Darlene Lucero Bilirubin [Mass/Vol] 0.3 mg/dL Normal 0.2-1.0 [facility] Comment on above: Performed By: #### B MP #### [facility] [address] [address] [address] Darlene Lucero Calcium [Mass/Vol] 8.9 mg/dL Normal 8.5-10.[address] [facility] Comment on above: Performed By: #### B MP #### [facility] [address] [address] [address] Darlene Lucero Chloride [Moles/Vol] 96 mmol/L Critically low 98-107 [facility] Comment on above: Performed By: #### B MP #### [facility] [address] [address] [address] Darlene Lucero CO2 [Moles/Vol] 29.4 mmol/L Normal 21.0-32.0 [facility] Comment on above: Performed By: #### B MP #### [facility] [address] [address] [address] Darlene Lucero Creatinine [Mass/Vol] 0.70 mg/dL Normal 0.55-1.02 [facility] Comment on above: Performed By: #### B MP #### [facility] [address] [address] [address] Darlene Lucero EGFR-AF ALBANIAN >60 Normal >=60 [facility] Comment on above: Performed By: #### B MP #### [facility] [address] [address] [address] Darlene Lucero EGFR-NON AF ALBANIAN >60 Normal >=60 [facility] Comment on above: Performed By: #### B MP #### [facility] [address] [address] [address] Darlene Lucero Globulin (S) [Mass/Vol] 3.8 g/dL Normal [facility] Comment on above: Performed By: #### B MP #### [facility] [address] [address] [address] Darlene Lucero Glucose [Mass/Vol] 114 mg/dL Critically high 74-106 [facility] Comment on above: Performed By: #### B MP #### [facility] [address] [address] [address] Darlene Lucero Potassium [Moles/Vol] 3.9 mmol/L Normal 3.5-5.1 [facility] Comment on above: Performed By: #### B MP #### [facility] [address] [address] [address] Darlene Lucero Protein [Mass/Vol] 7.2 g/dL Normal 6.4-8.[address] [facility] Comment on above: Performed By: #### B MP #### [facility] [address] [address] [address] Darlene Lucero Sodium [Moles/Vol] 133 mmol/L Critically low 136-145 [facility] Comment on above: Performed By: #### B MP #### [facility] [address] [address] [address] Darlene Lucero Urea nitrogen [Mass/Vol] 19.0 mg/dL Critically high 7.0-18.0 [facility] Comment on above: Performed By: #### B MP #### [facility] [address] [address] [address] Darlene Lucero Urea nitrogen/Creatinine [Mass ratio] 27.1 mg/mg Normal [facility] Comment on above: Performed By: #### B MP #### [facility] [address] [address] [address] Darlene Lucero PROF 14(COMP METB)on 022 Albumin [Mass/Vol] 3.2 g/dL Critically low 3.4-5.0 [facility] Comment on above: Performed By: #### B MP #### [facility] [address] [place] [address] Dr. Darlene Lucero Albumin/Globulin [Mass ratio] 0.9 {ratio} Normal [facility] Comment on above: Performed By: #### B MP #### [facility] [address] [place] [address] Dr. Darlene Lucero ALP [Catalytic activity/Vol] 60 U/L Normal 46-116 [facility] Comment on above: Performed By: #### B MP #### [facility] [address] [place] [address] Dr. Darlene Lucero ALT [Catalytic activity/Vol] 17 U/L Normal 14-59 [facility] Comment on above: Performed By: #### B MP #### [facility] [address] [place] [address] Dr. Darleen Lucero Anion gap [Moles/Vol] 8.0 mmol/L Normal [facility] Comment on above: Performed By: #### B MP #### [facility] [address] [place] [address] Dr. Darlene Lucero AST [Catalytic activity/Vol] 12 U/L Critically low 15-37 [facility] Comment on above: Performed By: #### B MP #### [facility] [address] [place] [address] Dr. Darlene Lucero Bilirubin [Mass/Vol] 0.4 mg/dL Normal 0.2-1.0 [facility] Comment on above: Performed By: #### B MP #### [facility] [address] [place] [address] Dr. Darlene Lucero Calcium [Mass/Vol] 9.4 mg/dL Normal 8.5-10.[address] [facility] Comment on above: Performed By: #### B MP #### [facility] [address] [address] [address] Darlene Lucero Chloride [Moles/Vol] 96 mmol/L Critically low 98-107 [facility] Comment on above: Performed By: #### B MP #### [facility] [address] [place] [address] Dr. Darlene Lucero CO2 [Moles/Vol] 32.4 mmol/L Critically high 21.0-32.0 [facility] Comment on above: Performed By: #### B MP #### [facility] [address] [place] [address] Dr. Darlene Lucero Creatinine [Mass/Vol] 0.64 mg/dL Normal 0.55-1.02 [facility] Comment on above: Performed By: #### B MP #### [facility] [address] [place] [address] Dr. Darlene Lucero EGFR-AF ALBANIAN >60 Normal >=60 [facility] Comment on above: Performed By: #### B MP #### [facility] [address] [place] [address] Dr. Darlene Lucero EGFR-NON AF ALBANIAN >60 Normal >=60 [facility] Comment on above: Performed By: #### B MP #### [facility] [address] [place] [address] Dr. Darlene Lucero Globulin (S) [Mass/Vol] 3.7 g/dL Normal [facility] Comment on above: Performed By: #### B MP #### [facility] [address] [place] [address] Dr. Darlene Lucero Glucose [Mass/Vol] 63 mg/dL Critically low 74-106 [facility] Comment on above: Performed By: #### B MP #### [facility] [address] [place] [address] Dr. Darlene Lucero Potassium [Moles/Vol] 4.4 mmol/L Normal 3.5-5.1 [facility] Comment on above: Performed By: #### B MP #### [facility] [address] [place] [address] Dr. Darlene Lucero Protein [Mass/Vol] 6.9 g/dL Normal 6.4-8.[address] [facility] Comment on above: Performed By: #### B MP #### [facility] [address] [place] [address] Dr. Darlene Lucero Sodium [Moles/Vol] 132 mmol/L Critically low 136-145 [facility] Comment on above: Performed By: #### B MP #### [facility] [address] [address] [address] Darlene Lucero Urea nitrogen [Mass/Vol] 16.0 mg/dL Normal 7.0-18.0 [facility] Comment on above: Performed By: #### B MP #### [facility] [address] [place] [address] Dr. Darlene Lucero Urea nitrogen/Creatinine [Mass ratio] 25.0 mg/mg Normal [facility] Comment on above: Performed By: #### B MP #### [facility] [address] [place] [address] Dr. Darlene Lucero OSMOLALITYon 09-07-2021 Osmolality [Osmolality] 268 mosm/kg Critically low 280-301 [facility] Comment on above: Performed By: #### U WILLEM #### [facility] [address] [place] [address] Dr. Darlene Lucero OSMOLALITY URINEon Osmolality, Urine 565 mOsmol/kg Normal [facility] Comment on above: Result Comment: 24 h r : 300 - 900 Random: 50 - 1400 After 12hr fluid restriction: >850 Performed By: #### B MP #### [facility] [address] [place] [address] Dr. Darlene Lucero CBC AUTO DIFFon 09-05-2021 BASO # 0.0 103/ul Normal 0.0-0.1 [facility] Comment on above: Performed By: #### B MP #### [facility] [address] [place] [address] Dr. Darlene Lucero Basophils/100 WBC (Bld) 0.3 % Normal 0.2-2.0 [facility] Comment on above: Performed By: #### B MP #### [facility] [address] [address] [address] Darlene Lucero EO # 0.0 103/ul Normal 0.0-0.7 [facility] Comment on above: Performed By: #### B MP #### [facility] [address] [place] [address] Dr. Darlene Lucero Eosinophils/100 WBC (Bld) 0.1 % Critically low 0.9-7.0 [facility] Comment on above: Performed By: #### B MP #### [facility] [address] [place] [address] Dr. Darlene Lucero Erythrocyte distribution width (RBC) [Ratio] 12.9 % Normal 11.0-15.0 [facility] Comment on above: Performed By: #### B MP #### [facility] [address] [place] [address] Dr. Darlene Lucero Hematocrit (Bld) [Volume fraction] 32.5 % Critically low 36.0-48.0 [facility] Comment on above: Performed By: #### B MP #### [facility] [address] [place] [address] Dr. Darlene Lucero Hemoglobin (Bld) [Mass/Vol] 10.5 g/dL Critically low 12.0-16.0 [facility] Comment on above: Performed By: #### B MP #### [facility] [address] [place] [address] Dr. Darlene Lucero IG # 0.11 10e3/ul Critically high 0.00-0.03 [facility] Comment on above: Performed By: #### B MP #### [facility] [address] [place] [address] Dr. Darlene Lucero IG % 1.6 % Critically high 0.0-0.5 [facility] Comment on above: Performed By: #### B MP #### [facility] [address] [place] [address] Dr. Darlene Lucero LYMPH # 1.5 103/ul Normal 1.2-3.8 [facility] Comment on above: Performed By: #### B MP #### [facility] [address] [place] [address] Dr. Darlene Lucero Lymphocytes/100 WBC (Bld) 22.4 % Normal 20.5-60.0 [facility] Comment on above: Performed By: #### B MP #### [facility] [address] [place] [address] Dr. Darlene Lucero MANUAL DIFF REQ NO Normal [facility] Comment on above: Performed By: #### B MP #### [facility] [address] [place] [address] Dr. Darlene Lucero MCH (RBC) [Entitic mass] 29.5 pg Normal 26.7-34.0 [facility] Comment on above: Performed By: #### B MP #### [facility] [address] [place] [address] Dr. Darlene Lucero MCHC (RBC) [Mass/Vol] 32.3 g/dL Normal 29.9-35.2 [facility] Comment on above: Performed By: #### B MP #### [facility] [address] [place] [address] Dr. Darlene Lucero MCV (RBC) [Entitic vol] 91.3 fL Normal 81.0-99.0 [facility] Comment on above: Performed By: #### B MP #### [facility] [address] [place] [address] Dr. Darlene Lucero MONO # 0.8 103/ul Normal 0.3-0.8 [facility] Comment on above: Performed By: #### B MP #### [facility] [address] [place] [address] Dr. Darlene Lucero Monocytes/100 WBC (Bld) 11.6 % Normal 1.7-12.0 [facility] Comment on above: Performed By: #### B MP #### [facility] [address] [place] [address] Dr. Darlene Lucero NEUT # 4.4 103/ul Normal 1.4-6.5 [facility] Comment on above: Performed By: #### B MP #### [facility] [address] [place] [address] Dr. Darlene Lucero Neutrophils/100 WBC (Bld) 64.0 % Normal 43.0-75.0 [facility] Comment on above: Performed By: #### B MP #### [facility] [address] [address] [address] Darlene Lucero Platelet mean volume (Bld) [Entitic vol] 8.1 fL Critically low 9.5-13.5 [facility] Comment on above: Performed By: #### B MP #### [facility] [address] [address] [address] Darlene Lucero PLT 571 103/ul Critically high 150-450 [facility] Comment on above: Performed By: #### B MP #### [facility] [address] [address] [address] Darlene Lucero RBC 3.56 106/ul Critically low 4.20-5.40 [facility] Comment on above: Performed By: #### B MP #### [facility] [address] [address] [address] Darlene Lucero WBC 6.9 103/ul Normal 4.0-11.0 [facility] Comment on above: Performed By: #### B MP #### [facility] [address] [address] [address] Darlene Lucero [facility] SARS-CoV-2 (COVID-19) RNA TASHA+probe Ql (Unsp spec) Detected Critically abnormal NOT DETECTED [facility] Comment on above: Result Comment: This test is not yet approved or cleared by the [place] FDA. When there are no FDA-approved or cleared tests available, and other criteria are met, FDA can make tests available under an emergency access mechanism called an Emergency Use Authorization (EUA). The EUA for this test is supported by the [place] of Health and Human Service's (HHS's) declaration [...] used). Performed By: #### B MP #### [facility] [address] [address] [address] Darlene Lucero PROF CHEM 8 (BAS METB)on Anion gap [Moles/Vol] 7.3 mmol/L Normal [facility] Comment on above: Performed By: #### B MP #### [facility] [address] [address] [address] Darlene Lucero Calcium [Mass/Vol] 8.5 mg/dL Normal 8.5-10.1 [facility] Comment on above: Performed By: #### B MP #### [facility] [address] [place] [address] Dr. Darlene Lucero Chloride [Moles/Vol] 101 mmol/L Normal 98-107 [facility] Comment on above: Performed By: #### B MP #### [facility] [address] [place] [address] Dr. Darlene Lucero CO2 [Moles/Vol] 31.6 mmol/L Normal 21.0-32.0 [facility] Comment on above: Performed By: #### B MP #### [facility] [address] [place] [address] Dr. Darlene Lucero Creatinine [Mass/Vol] 0.49 mg/dL Critically low 0.55-1.02 [facility] Comment on above: Performed By: #### B MP #### [facility] [address] [place] [address] Dr. Darlene Lucero EGFR-AF ALBANIAN >60 Normal >=60 [facility] Comment on above: Performed By: #### B MP #### [facility] [address] [place] [address] Dr. Darlene Lucero EGFR-NON AF ALBANIAN >60 Normal >=60 [facility] Comment on above: Performed By: #### B MP #### [facility] [address] [place] [address] Dr. Darlene Lucero Glucose [Mass/Vol] 88 mg/dL Normal 74-[address] [facility] Comment on above: Performed By: #### B MP #### [facility] [address] [place] [address] Dr. Darlene Lucero Potassium [Moles/Vol] 3.9 mmol/L Normal 3.5-5.1 [facility] Comment on above: Performed By: #### B MP #### [facility] [address] [place] [address] Dr. Darlene Lucero Sodium [Moles/Vol] 136 mmol/L Normal 136-[address] [facility] Comment on above: Performed By: #### B MP #### [facility] [address] [place] [address] Dr. Darlene Lucero Urea nitrogen [Mass/Vol] 15.0 mg/dL Normal 7.0-18.0 [facility] Comment on above: Performed By: #### B MP #### [facility] [address] [place] [address] Dr. Darlene Lucero Urea nitrogen/Creatinine [Mass ratio] 30.6 mg/mg Normal [facility] Comment on above: Performed By: #### B MP #### [facility] [address] [place] [address] Dr. Darlene Lucero CBC AUTO DIFFon 09-04-2021 BASO # 0.0 103/ul Normal 0.0-0.1 [facility] Comment on above: Performed By: #### O SMOU #### [facility] [address] [place] [address] Dr. Darlene Lucero Basophils/100 WBC (Bld) 0.2 % Normal 0.2-2.0 [facility] Comment on above: Performed By: #### O SMOU #### [facility] [address] [place] [address] Dr. Darlene Lucero EO # 0.0 103/ul Normal 0.0-0.7 [facility] Comment on above: Performed By: #### O SMOU #### [facility] [address] [place] [address] Dr. Darlene Lucero Eosinophils/100 WBC (Bld) 0.0 % Critically low 0.9-7.0 [facility] Comment on above: Performed By: #### O SMOU #### [facility] [address] [place] [address] Dr. Darlene Lucero Erythrocyte distribution width (RBC) [Ratio] 12.7 % Normal 11.0-15.0 [facility] Comment on above: Performed By: #### O SMOU #### [facility] [address] [place] [address] Dr. Darlene Lucero Hematocrit (Bld) [Volume fraction] 32.0 % Critically low 36.0-48.0 [facility] Comment on above: Performed By: #### O SMOU #### [facility] [address] [place] [address] Dr. Darlene Lucero Hemoglobin (Bld) [Mass/Vol] 10.4 g/dL Critically low 12.0-16.0 [facility] Comment on above: Performed By: #### O SMOU #### [facility] [address] [place] [address] Dr. Darlene Lucero IG # 0.07 10e3/ul Critically high 0.00-0.03 [facility] Comment on above: Performed By: #### O SMOU #### [facility] [address] [place] [address] Dr. Darlene Lucero IG % 1.1 % Critically high 0.0-0.5 [facility] Comment on above: Performed By: #### O SMOU #### [facility] [address] [place] [address] Dr. Darlene Lucero LYMPH # 1.4 103/ul Normal 1.2-3.8 [facility] Comment on above: Performed By: #### O SMOU #### [facility] [address] [place] [address] Dr. Darlene Lucero Lymphocytes/100 WBC (Bld) 21.9 % Normal 20.5-60.0 [facility] Comment on above: Performed By: #### O SMOU #### [facility] [address] [place] [address] Dr. Darlene Lucero MANUAL DIFF REQ NO Normal [facility] Comment on above: Performed By: #### O SMOU #### [facility] [address] [place] [address] Dr. Darlene Lucero MCH (RBC) [Entitic mass] 29.4 pg Normal 26.7-34.0 [facility] Comment on above: Performed By: #### O SMOU #### [facility] [address] [place] [address] Dr. Darlene Lucero MCHC (RBC) [Mass/Vol] 32.5 g/dL Normal 29.9-35.2 [facility] Comment on above: Performed By: #### O SMOU #### [facility] [address] [place] [address] Dr. Darlene Lucero MCV (RBC) [Entitic vol] 90.4 fL Normal 81.0-99.0 [facility] Comment on above: Performed By: #### O SMOU #### [facility] [address] [place] [address] Dr. Darlene Lucero MONO # 0.8 103/ul Normal 0.3-0.8 [facility] Comment on above: Performed By: #### O SMOU #### [facility] [address] [place] [address] Dr. Darlene Lucero Monocytes/100 WBC (Bld) 12.6 % Critically high 1.7-12.0 [facility] Comment on above: Performed By: #### O SMOU #### [facility] [address] [place] [address] Dr. Darlene Lucero NEUT # 4.2 103/ul Normal 1.4-6.5 [facility] Comment on above: Performed By: #### O SMOU #### [facility] [address] [place] [address] Dr. Darlene Lucero Neutrophils/100 WBC (Bld) 64.2 % Normal 43.0-75.0 [facility] Comment on above: Performed By: #### O SMOU #### [facility] [address] [place] [address] Dr. Darlene Lucero Platelet mean volume (Bld) [Entitic vol] 8.0 fL Critically low 9.5-13.5 [facility] Comment on above: Performed By: #### O SMOU #### [facility] [address] [place] [address] Dr. Darlene Lucero PLT 524 103/ul Critically high 150-450 [facility] Comment on above: Performed By: #### O SMOU #### [facility] [address] [place] [address] Dr. Darlene Lucero RBC 3.54 106/ul Critically low 4.20-5.40 [facility] Comment on above: Performed By: #### O SMOU #### [facility] [address] [place] [address] Dr. Darlene Lucero WBC 6.5 103/ul Normal 4.0-11.0 [facility] Comment on above: Performed By: #### O SMOU #### [facility] [address] [place] [address] Dr. Darlene Lucero POINT OF CARE GLUCOSEon 08-15 Glucose [Mass/Vol] 120 mg/dL Critically high 74-106 [facility] Comment on above: Performed By: #### U WILLEM #### [facility] [address] [place] [address] Dr. Darlene Lucero Glucose [Mass/Vol] 129 mg/dL Critically high 74-106 [facility] Comment on above: Performed By: #### P OCGLUC #### [facility] [address] [place] [address] Dr. Darlene Lucero Glucose [Mass/Vol] 111 mg/dL Critically high 74-106 [facility] Comment on above: Performed By: #### B MP #### [facility] [address] [place] [address] Dr. Darlene Lucero Glucose [Mass/Vol] 89 mg/dL Normal 74-[address] [facility] Comment on above: Performed By: #### B MP #### [facility] [address] [place] [address] Dr. Darlene Lucero PROF CHEM 8 (BAS METB)on Anion gap [Moles/Vol] 8.0 mmol/L Normal [facility] Comment on above: Performed By: #### B MP #### [facility] [address] [address] [address] Darlene Lucero Calcium [Mass/Vol] 8.6 mg/dL Normal 8.5-10.1 [facility] Comment on above: Performed By: #### B MP #### [facility] [address] [address] [address] Darlene Lucero Chloride [Moles/Vol] 97 mmol/L Critically low 98-107 [facility] Comment on above: Performed By: #### B MP #### [facility] [address] [address] [address] Darlene Lucero CO2 [Moles/Vol] 31.6 mmol/L Normal 21.0-32.0 [facility] Comment on above: Performed By: #### B MP #### [facility] [address] [address] [address] Darlene Lucero Creatinine [Mass/Vol] 0.63 mg/dL Normal 0.55-1.02 [facility] Comment on above: Performed By: #### B MP #### [facility] [address] [address] [address] Darlene Lucero EGFR-AF ALBANIAN >60 Normal >=60 [facility] Comment on above: Performed By: #### B MP #### [facility] [address] [address] [address] Darlene Lucero EGFR-NON AF ALBANIAN >60 Normal >=60 [facility] Comment on above: Performed By: #### B MP #### [facility] [address] [address] [address] Darlene Lucero Glucose [Mass/Vol] 96 mg/dL Normal 74-106 [facility] Comment on above: Performed By: #### B MP #### [facility] [address] [place] [address] Dr. Darlene Lucero Potassium [Moles/Vol] 3.6 mmol/L Normal 3.5-5.1 [facility] Comment on above: Performed By: #### B MP #### [facility] [address] [address] [address] Darlene Lucero Sodium [Moles/Vol] 133 mmol/L Critically low 136-145 [facility] Comment on above: Performed By: #### B MP #### [facility] [address] [address] [address] Darlene Lucero Urea nitrogen [Mass/Vol] 18.0 mg/dL Normal 7.0-18.0 [facility] Comment on above: Performed By: #### B MP #### [facility] Laboratory [address] [address] [address] Darlene Lucero Urea nitrogen/Creatinine [Mass ratio] 28.6 mg/mg Normal [facility] Comment on above: Performed By: #### B MP #### [facility] [address] [place] [address] Dr. Darlene Lucero CBC AUTO DIFFon 09-03-2021 BASO # 0.0 103/ul Normal 0.0-0.1 [facility] Comment on above: Performed By: #### B MP #### [facility] [address] [address] [address] Darlene Lucero Basophils/100 WBC (Bld) 0.0 % Critically low 0.2-2.0 [facility] Comment on above: Performed By: #### B MP #### [facility] [address] [address] [address] Darlene Lucero EO # 0.0 103/ul Normal 0.0-0.7 [facility] Comment on above: Performed By: #### B MP #### [facility] [address] [address] [address] Darlene Lucero Eosinophils/100 WBC (Bld) 0.0 % Critically low 0.9-7.0 [facility] Comment on above: Performed By: #### B MP #### [facility] [address] [place] [address] Dr. Darlene Lucero Erythrocyte distribution width (RBC) [Ratio] 12.3 % Normal 11.0-15.0 [facility] Comment on above: Performed By: #### B MP #### [facility] [address] [address] [address] Darlene Lucero Hematocrit (Bld) [Volume fraction] 32.1 % Critically low 36.0-48.0 [facility] Comment on above: Performed By: #### B MP #### [facility] [address] [place] [address] Dr. Darlene Lucero Hemoglobin (Bld) [Mass/Vol] 10.9 g/dL Critically low 12.0-16.0 [facility] Comment on above: Performed By: #### B MP #### [facility] [address] [place] [address] Dr. Darlene Lucero IG # 0.04 10e3/ul Critically high 0.00-0.03 [facility] Comment on above: Performed By: #### B MP #### [facility] [address] [place] [address] Dr. Darlene Lucero IG % 0.7 % Critically high 0.0-0.5 [facility] Comment on above: Performed By: #### B MP #### [facility] [address] [place] [address] Dr. Darlene Lucero LYMPH # 1.2 103/ul Normal 1.2-3.8 [facility] Comment on above: Performed By: #### B MP #### [facility] [address] [place] [address] Dr. Darlene Lucero Lymphocytes/100 WBC (Bld) 21.3 % Normal 20.5-60.0 [facility] Comment on above: Performed By: #### B MP #### [facility] [address] [place] [address] Dr. Darlene Lucero MANUAL DIFF REQ NO Normal [facility] Comment on above: Performed By: #### B MP #### [facility] [address] [place] [address] Dr. Darlene Lucero MCH (RBC) [Entitic mass] 29.9 pg Normal 26.7-34.0 [facility] Comment on above: Performed By: #### B MP #### [facility] [address] [address] [address] Darlene Lucero MCHC (RBC) [Mass/Vol] 34.0 g/dL Normal 29.9-35.2 [facility] Comment on above: Performed By: #### B MP #### [facility] [address] [address] [address] Darlene Lucero MCV (RBC) [Entitic vol] 87.9 fL Normal 81.0-99.0 [facility] Comment on above: Performed By: #### B MP #### [facility] [address] [address] [address] Darlene Lucero MONO # 1.0 103/ul Critically high 0.3-0.8 [facility] Comment on above: Performed By: #### B MP #### [facility] [address] [place] [address] Dr. Darlene Lucero Monocytes/100 WBC (Bld) 17.2 % Critically high 1.7-12.0 [facility] Comment on above: Performed By: #### B MP #### [facility] [address] [address] [address] Darlene Lucero NEUT # 3.5 103/ul Normal 1.4-6.5 [facility] Comment on above: Performed By: #### B MP #### [facility] [address] [address] [address] Darlene Lucero Neutrophils/100 WBC (Bld) 60.8 % Normal 43.0-75.0 [facility] Comment on above: Performed By: #### B MP #### [facility] [address] [address] [address] Darlene Lucero Platelet mean volume (Bld) [Entitic vol] 8.1 fL Critically low 9.5-13.5 [facility] Comment on above: Performed By: #### B MP #### [facility] [address] [address] [address] Darlene Lucero PLT 499 103/ul Critically high 150-450 [facility] Comment on above: Performed By: #### B MP #### [facility] [address] [address] [address] Darlene Lucero RBC 3.65 106/ul Critically low 4.20-5.40 [facility] Comment on above: Performed By: #### B MP #### [facility] [address] [address] [address] Darlene Lucero WBC 5.8 103/ul Normal 4.0-11.0 [facility] Comment on above: Performed By: #### B MP #### [facility] [address] [address] [address] Darlene Lucero Covid-19 PCR (CVDTB)on 08-15 SARS-CoV-2 (COVID-19) RNA TASHA+probe Ql (Unsp spec) Detected Critically abnormal NOT DETECTED [facility] Comment on above: Result Comment: This test is not yet approved or cleared by the [place] FDA. When there are no FDA-approved or cleared tests available, and other criteria are met, FDA can make tests available under an emergency access mechanism called an Emergency Use Authorization (EUA). The EUA for this test is supported by the [employer] of Health and Human Service's declaration that [...] used). Performed By: #### B MP #### [facility] [address] [place] [address] Dr. Darlene Lucero POINT OF CARE GLUCOSEon 08-15 Glucose [Mass/Vol] 131 mg/dL Critically high 74-106 [facility] Comment on above: Performed By: #### B MP #### [facility] [address] [place] [address] Dr. Darlene Lucero Glucose [Mass/Vol] 131 mg/dL Critically high 74-106 [facility] Comment on above: Performed By: #### B MP #### [facility] [address] [address] [address] Darlene Lucero PROF CHEM 8 (BAS METB)on Anion gap [Moles/Vol] 9.4 mmol/L Normal [facility] Comment on above: Performed By: #### B MP #### [facility] [address] [address] [address] Darlene Lucero Calcium [Mass/Vol] 8.6 mg/dL Normal 8.5-10.[address] [facility] Comment on above: Performed By: #### B MP #### [facility] [address] [address] [address] Darlene Lucero Chloride [Moles/Vol] 97 mmol/L Critically low 98-107 [facility] Comment on above: Performed By: #### B MP #### [facility] [address] [place] [address] Dr. Darlene Lucero CO2 [Moles/Vol] 28.6 mmol/L Normal 21.0-32.0 [facility] Comment on above: Performed By: #### B MP #### [facility] [address] [place] [address] Dr. Darlene Lucero Creatinine [Mass/Vol] 0.73 mg/dL Normal 0.55-1.02 [facility] Comment on above: Performed By: #### B MP #### [facility] [address] [place] [address] Dr. Darlene Lucero EGFR-AF ALBANIAN >60 Normal >=60 [facility] Comment on above: Performed By: #### B MP #### [facility] [address] [place] [address] Dr. Darlene Lucero EGFR-NON AF ALBANIAN >60 Normal >=60 [facility] Comment on above: Performed By: #### B MP #### [facility] [address] [place] [address] Dr. Darlene Lucero Glucose [Mass/Vol] 172 mg/dL Critically high 74-106 [facility] Comment on above: Performed By: #### B MP #### [facility] [address] [place] [address] Dr. Darlene Lucero Potassium [Moles/Vol] 4.0 mmol/L Normal 3.5-5.1 [facility] Comment on above: Performed By: #### B MP #### [facility] [address] [address] [address] Darlene Lucero Sodium [Moles/Vol] 131 mmol/L Critically low 136-145 [facility] Comment on above: Performed By: #### B MP #### [facility] [address] [address] [address] Darlene Lucero Urea nitrogen [Mass/Vol] 19.0 mg/dL Critically high 7.0-18.0 [facility] Comment on above: Performed By: #### B MP #### [facility] [address] [place] [address] Dr. Darlene Lucero Urea nitrogen/Creatinine [Mass ratio] 26.0 mg/mg Normal [facility] Comment on above: Performed By: #### B MP #### [facility] [address] [place] [address] Dr. Darlene Lucero Anion gap [Moles/Vol] 10.3 mmol/L Normal [facility] Comment on above: Performed By: #### B MP #### [facility] [address] [place] [address] Dr. Darlene Lucero Calcium [Mass/Vol] 8.4 mg/dL Critically low 8.5-10.1 [facility] Comment on above: Performed By: #### B MP #### [facility] [address] [address] [address] Darlene Lucero Chloride [Moles/Vol] 90 mmol/L Critically low 98-107 [facility] Comment on above: Performed By: #### B MP #### [facility] [address] [place] [address] Dr. Darlene Lucero CO2 [Moles/Vol] 28.0 mmol/L Normal 21.0-32.0 [facility] Comment on above: Performed By: #### B MP #### [facility] [address] [place] [address] Dr. Darlene Lucero Creatinine [Mass/Vol] 0.69 mg/dL Normal 0.55-1.02 [facility] Comment on above: Performed By: #### B MP #### [facility] [address] [address] [address] Darlene Lucero EGFR-AF ALBANIAN >60 Normal >=60 [facility] Comment on above: Performed By: #### B MP #### [facility] [address] [address] [address] Darlene Lucero EGFR-NON AF ALBANIAN >60 Normal >=60 [facility] Comment on above: Performed By: #### B MP #### [facility] [address] [address] [address] Darlene Lucero Glucose [Mass/Vol] 95 mg/dL Normal 74-[address] [facility] Comment on above: Performed By: #### B MP #### [facility] [address] [address] [address] Darlene Lucero Potassium [Moles/Vol] 3.3 mmol/L Critically low 3.5-5.1 [facility] Comment on above: Performed By: #### B MP #### [facility] [address] [address] [address] Darlene Lucero Sodium [Moles/Vol] 125 mmol/L Critically low 136-145 [facility] Comment on above: Performed By: #### B MP #### [facility] [address] [address] [address] Darlene Lucero Urea nitrogen [Mass/Vol] 18.0 mg/dL Normal 7.0-18.0 [facility] Comment on above: Performed By: #### B MP #### [facility] [address] [address] [address] Darlene Lucero Urea nitrogen/Creatinine [Mass ratio] 26.1 mg/mg Normal [facility] Comment on above: Performed By: #### B MP #### [facility] [address] [address] [address] Darlene Lucero Anion gap [Moles/Vol] 9.0 mmol/L Normal [facility] Comment on above: Performed By: #### O SMOU #### [facility] [address] [address] [address] Darlene Lucero Calcium [Mass/Vol] 8.3 mg/dL Critically low 8.5-10.1 [facility] Comment on above: Performed By: #### O SMOU #### [facility] [address] [place] [address] Dr. Darlene Lucero Chloride [Moles/Vol] 92 mmol/L Critically low 98-107 [facility] Comment on above: Performed By: #### O SMOU #### [facility] [address] [place] [address] Dr. Darlene Lucero CO2 [Moles/Vol] 28.8 mmol/L Normal 21.0-32.0 [facility] Comment on above: Performed By: #### O SMOU #### [facility] [address] [place] [address] Dr. Darlene Lucero Creatinine [Mass/Vol] 0.65 mg/dL Normal 0.55-1.02 [facility] Comment on above: Performed By: #### O SMOU #### [facility] [address] [place] [address] Dr. Darlene Lucero EGFR-AF ALBANIAN >60 Normal >=60 [facility] Comment on above: Performed By: #### O SMOU #### [facility] [address] [place] [address] Dr. Darlene Lucero EGFR-NON AF ALBANIAN >60 Normal >=60 [facility] Comment on above: Performed By: #### O SMOU #### [facility] [address] [place] [address] Dr. Darlene Lucero Glucose [Mass/Vol] 89 mg/dL Normal 74-[address] [facility] Comment on above: Performed By: #### O SMOU #### [facility] [address] [place] [address] Dr. Darlene Lucero Potassium [Moles/Vol] 3.8 mmol/L Normal 3.5-5.1 [facility] Comment on above: Performed By: #### O SMOU #### [facility] [address] [address] [address] Darlene Lucero Sodium [Moles/Vol] 126 mmol/L Critically low 136-145 [facility] Comment on above: Performed By: #### O SMOU #### [facility] [address] [address] [address] Darlene Lucero Urea nitrogen [Mass/Vol] 19.0 mg/dL Critically high 7.0-18.0 [facility] Comment on above: Performed By: #### O SMOU #### [facility] [address] [address] [address] Darlene Lucero Urea nitrogen/Creatinine [Mass ratio] 29.2 mg/mg Normal [facility] Comment on above: Performed By: #### O SMOU #### [facility] [address] [address] [address] Darlene Lucero Anion gap [Moles/Vol] 9.0 mmol/L Normal [facility] Comment on above: Performed By: #### O SMOU #### [facility] [address] [address] [address] Darlene Lucero Calcium [Mass/Vol] 8.2 mg/dL Critically low 8.5-10.1 [facility] Comment on above: Performed By: #### O SMOU #### [facility] [address] [address] [address] Darlene Lucero Chloride [Moles/Vol] 92 mmol/L Critically low 98-107 [facility] Comment on above: Performed By: #### O SMOU #### [facility] [address] [address] [address] Darlene Lucero CO2 [Moles/Vol] 26.8 mmol/L Normal 21.0-32.0 [facility] Comment on above: Performed By: #### O SMOU #### [facility] [address] [address] [address] Darlene Lucero Creatinine [Mass/Vol] 0.68 mg/dL Normal 0.55-1.02 [facility] Comment on above: Performed By: #### O SMOU #### [facility] [address] [place] [address] Dr. Darlene Lucero EGFR-AF ALBANIAN >60 Normal >=60 [facility] Comment on above: Performed By: #### O SMOU #### [facility] [address] [place] [address] Dr. Darlene Lucero EGFR-NON AF [place]IAN >60 Normal >=60 [facility] Comment on above: Performed By: #### O SMOU #### [facility] [address] [place] [address] Dr. Darlene Lucero Glucose [Mass/Vol] 94 mg/dL Normal 74-[address] [facility] Comment on above: Performed By: #### O SMOU #### [facility] [address] [place] [address] Dr. Darlene Lucero Potassium [Moles/Vol] 3.8 mmol/L Normal 3.5-5.1 [facility] Comment on above: Performed By: #### O SMOU #### [facility] [address] [place] [address] Dr. Darlene Lucero Sodium [Moles/Vol] 124 mmol/L Critically low 136-145 [facility] Comment on above: Result Comment: repe ated Performed By: #### O SMOU #### [facility] [address] [place] [address] Dr. Darlene Lucero Urea nitrogen [Mass/Vol] 20.0 mg/dL Critically high 7.0-18.0 [facility] Comment on above: Performed By: #### O SMOU #### [facility] [address] [place] [address] Dr. Darlene Lucero Urea nitrogen/Creatinine [Mass ratio] 29.4 mg/mg Normal [facility] Comment on above: Performed By: #### O SMOU #### [facility] [address] [place] [address] Dr. Darlene Lucero CBC AUTO DIFFon 09-02-2021 BASO # 0.0 103/ul Normal 0.0-0.1 [facility] Comment on above: Performed By: #### B MP #### [facility] [address] [address] [address] Darlene Lucero Basophils/100 WBC (Bld) 0.1 % Critically low 0.2-2.0 [facility] Comment on above: Performed By: #### B MP #### [facility] [address] [address] [address] Darlene Lucero EO # 0.0 103/ul Normal 0.0-0.7 [facility] Comment on above: Performed By: #### B MP #### [facility] [address] [address] [address] Darlene Lucero Eosinophils/100 WBC (Bld) 0.0 % Critically low 0.9-7.0 [facility] Comment on above: Performed By: #### B MP #### [facility] [address] [address] [address] Darlene Lucero Erythrocyte distribution width (RBC) [Ratio] 12.0 % Normal 11.0-15.0 [facility] Comment on above: Performed By: #### B MP #### [facility] [address] [address] [address] Darlene Lucero Hematocrit (Bld) [Volume fraction] 35.1 % Critically low 36.0-48.0 [facility] Comment on above: Performed By: #### B MP #### [facility] [address] [address] [address] Darlene Lucero Hemoglobin (Bld) [Mass/Vol] 11.9 g/dL Critically low 12.0-16.0 [facility] Comment on above: Performed By: #### B MP #### [facility] [address] [address] [address] Darlene Lucero IG # 0.04 10e3/ul Critically high 0.00-0.03 [facility] Comment on above: Performed By: #### B MP #### [facility] [address] [address] [address] Darlene Lucero IG % 0.4 % Normal 0.0-0.5 [facility] Comment on above: Performed By: #### B MP #### [facility] [address] [address] [address] Darlene Lucero LYMPH # 1.0 103/ul Critically low 1.2-3.8 [facility] Comment on above: Performed By: #### B MP #### [facility] [address] [address] [address] Darlene Lucero Lymphocytes/100 WBC (Bld) 10.6 % Critically low 20.5-60.0 [facility] Comment on above: Performed By: #### B MP #### [facility] [address] [address] [address] Darlene Lucero MANUAL DIFF REQ NO Normal [facility] Comment on above: Performed By: #### B MP #### [facility] [address] [place] [address] Dr. Darlene Lucero MCH (RBC) [Entitic mass] 29.4 pg Normal 26.7-34.0 [facility] Comment on above: Performed By: #### B MP #### [facility] [address] [place] [address] Dr. Darlene Lucero MCHC (RBC) [Mass/Vol] 33.9 g/dL Normal 29.9-35.2 [facility] Comment on above: Performed By: #### B MP #### [facility] [address] [place] [address] Dr. Darlene Lucero MCV (RBC) [Entitic vol] 86.7 fL Normal 81.0-99.0 [facility] Comment on above: Performed By: #### B MP #### [facility] [address] [place] [address] Dr. Darlene Lucero MONO # 1.1 103/ul Critically high 0.3-0.8 [facility] Comment on above: Performed By: #### B MP #### [facility] [address] [address] [address] Darlene Lucero Monocytes/100 WBC (Bld) 12.1 % Critically high 1.7-12.0 [facility] Comment on above: Performed By: #### B MP #### [facility] [address] [address] [address] Darlene Lucero NEUT # 6.9 103/ul Critically high 1.4-6.5 [facility] Comment on above: Performed By: #### B MP #### [facility] [address] [address] [address] Darlene Lucero Neutrophils/100 WBC (Bld) 76.8 % Critically high 43.0-75.0 [facility] Comment on above: Performed By: #### B MP #### [facility] [address] [place] [address] Dr. Darlene Lucero Platelet mean volume (Bld) [Entitic vol] 8.1 fL Critically low 9.5-13.5 [facility] Comment on above: Performed By: #### B MP #### [facility] [address] [address] [address] Darlene Lucero PLT 498 103/ul Critically high 150-450 [facility] Comment on above: Performed By: #### B MP #### [facility] [address] [place] [address] Dr. Darlene Lucero RBC 4.05 106/ul Critically low 4.20-5.40 [facility] Comment on above: Performed By: #### B MP #### [facility] [address] [place] [address] Dr. Darlene Lucero WBC 9.0 103/ul Normal 4.0-11.0 [facility] Comment on above: Performed By: #### B MP #### [facility] [address] [address] [address] Darlene Lucero OSMOLALITY URINEon 2 Osmolality, Urine 522 mOsmol/kg Normal [facility] Comment on above: Result Comment: 24 h r : 300 - 900 Random: 50 - 1400 After 12hr fluid restriction: >850 Performed By: #### O SMOU #### [facility] [address] [place] [address] Dr. Darlene Lucero POINT OF CARE GLUCOSEon 05-2 0 Glucose [Mass/Vol] 146 mg/dL Critically high 74-106 [facility] Comment on above: Performed By: #### O SMOU #### [facility] [address] [address] [address] Darlene Lucero Glucose [Mass/Vol] 151 mg/dL Critically high 74-106 [facility] Comment on above: Performed By: #### B MP #### [facility] [address] [address] [address] Darlene Lucero Glucose [Mass/Vol] 123 mg/dL Critically high 74-106 [facility] Comment on above: Performed By: #### B MP #### [facility] [address] [address] [address] Darlene Lucero Glucose [Mass/Vol] 153 mg/dL Critically high 74-106 [facility] Comment on above: Performed By: #### B MP #### [facility] [address] [place] [address] Dr. Darlene Lucero PROF CHEM 8 (BAS METB)on Anion gap [Moles/Vol] 10.1 mmol/L Normal [facility] Comment on above: Performed By: #### B MP #### [facility] [address] [address] [address] Darlene Lucero Calcium [Mass/Vol] 8.4 mg/dL Critically low 8.5-10.1 [facility] Comment on above: Performed By: #### B MP #### [facility] [address] [address] [address] Darlene Lucero Chloride [Moles/Vol] 90 mmol/L Critically low 98-107 [facility] Comment on above: Performed By: #### B MP #### [facility] [address] [address] [address] Darlene Lucero CO2 [Moles/Vol] 27.4 mmol/L Normal 21.0-32.0 [facility] Comment on above: Performed By: #### B MP #### [facility] [address] [address] [address] Darlene Lucero Creatinine [Mass/Vol] 0.82 mg/dL Normal 0.55-1.02 [facility] Comment on above: Performed By: #### B MP #### [facility] [address] [address] [address] Darlene Lucero EGFR-AF ALBANIAN >60 Normal >=60 [facility] Comment on above: Performed By: #### B MP #### [facility] [address] [address] [address] Darlene Lucero EGFR-NON AF ALBANIAN >60 Normal >=60 [facility] Comment on above: Performed By: #### B MP #### [facility] [address] [address] [address] Darlene Lucero Glucose [Mass/Vol] 120 mg/dL Critically high 74-106 [facility] Comment on above: Performed By: #### B MP #### [facility] [address] [address] [address] Darlene Lucero Potassium [Moles/Vol] 3.5 mmol/L Normal 3.5-5.1 [facility] Comment on above: Performed By: #### B MP #### [facility] [address] [address] [address] Darlene Lucero Sodium [Moles/Vol] 124 mmol/L Critically low 136-145 [facility] Comment on above: Result Comment: repe ated Performed By: #### B MP #### [facility] [address] [address] [address] Darlene Lucero Urea nitrogen [Mass/Vol] 20.0 mg/dL Critically high 7.0-18.0 [facility] Comment on above: Performed By: #### B MP #### [facility] [address] [address] [address] Darlene Lucero Urea nitrogen/Creatinine [Mass ratio] 24.4 mg/mg Normal [facility] Comment on above: Performed By: #### B MP #### [facility] [address] [address] [address] Darlene Lucero Anion gap [Moles/Vol] 11.7 mmol/L Normal [facility] Comment on above: Performed By: #### O SMOU #### [facility] [address] [address] [address] Darlene Lucero Calcium [Mass/Vol] 8.5 mg/dL Normal 8.5-10.[address] [facility] Comment on above: Performed By: #### O SMOU #### [facility] [address] [address] [address] Darlene Lucero Chloride [Moles/Vol] 89 mmol/L Critically low 98-107 [facility] Comment on above: Performed By: #### O SMOU #### [facility] [address] [address] [address] Darlene Lucero CO2 [Moles/Vol] 25.2 mmol/L Normal 21.0-32.0 [facility] Comment on above: Performed By: #### O SMOU #### [facility] [address] [place] [address] Dr. Darlene Lucero Creatinine [Mass/Vol] 0.76 mg/dL Normal 0.55-1.02 [facility] Comment on above: Performed By: #### O SMOU #### [facility] [address] [address] [address] Darlene Lucero EGFR-AF ALBANIAN >60 Normal >=60 [facility] Comment on above: Performed By: #### O SMOU #### [facility] [address] [place] [address] Dr. Darlene Lucero EGFR-NON AF ALBANIAN >60 Normal >=60 [facility] Comment on above: Performed By: #### O SMOU #### [facility] [address] [address] [address] Darlene Lucero Glucose [Mass/Vol] 140 mg/dL Critically high 74-106 [facility] Comment on above: Performed By: #### O SMOU #### [facility] [address] [address] [address] Darlene Lucero Potassium [Moles/Vol] 3.9 mmol/L Normal 3.5-5.1 [facility] Comment on above: Performed By: #### O SMOU #### [facility] [address] [address] [address] Darlene Lucero Sodium [Moles/Vol] 122 mmol/L Critically low 136-145 [facility] Comment on above: Performed By: #### O SMOU #### [facility] [address] [address] [address] Darlene uLcero Urea nitrogen [Mass/Vol] 16.0 mg/dL Normal 7.0-18.0 [facility] Comment on above: Performed By: #### O SMOU #### [facility] [address] [address] [address] Darlene Lucero Urea nitrogen/Creatinine [Mass ratio] 21.1 mg/mg Normal [facility] Comment on above: Performed By: #### O SMOU #### [facility] [address] [place] [address] Dr. Darlene Lucero Anion gap [Moles/Vol] 9.2 mmol/L Normal [facility] Comment on above: Performed By: #### O SMOU #### [facility] [address] [place] [address] Dr. Darlene Lucero Calcium [Mass/Vol] 8.3 mg/dL Critically low 8.5-10.1 [facility] Comment on above: Performed By: #### O SMOU #### [facility] [address] [place] [address] Dr. Darlene Lucero Chloride [Moles/Vol] 88 mmol/L Critically low 98-107 [facility] Comment on above: Performed By: #### O SMOU #### [facility] [address] [place] [address] Dr. Darlene Lucero CO2 [Moles/Vol] 27.8 mmol/L Normal 21.0-32.0 [facility] Comment on above: Performed By: #### O SMOU #### [facility] [address] [place] [address] Dr. Darlene Lucero Creatinine [Mass/Vol] 0.78 mg/dL Normal 0.55-1.02 [facility] Comment on above: Performed By: #### O SMOU #### [facility] [address] [place] [address] Dr. Darlene Lucero EGFR-AF ALBANIAN >60 Normal >=60 [facility] Comment on above: Performed By: #### O SMOU #### [facility] [address] [place] [address] Dr. Darlene Lucero EGFR-NON AF ALBANIAN >60 Normal >=60 [facility] Comment on above: Performed By: #### O SMOU #### [facility] [address] [place] [address] Dr. Darlene Lucero Glucose [Mass/Vol] 148 mg/dL Critically high 74-106 [facility] Comment on above: Performed By: #### O SMOU #### [facility] [address] [place] [address] Dr. Darlene Lucero Potassium [Moles/Vol] 4.0 mmol/L Normal 3.5-5.1 [facility] Comment on above: Performed By: #### O SMOU #### [facility] [address] [place] [address] Dr. Darlene Lucero Sodium [Moles/Vol] 122 mmol/L Critically low 136-145 [facility] Comment on above: Performed By: #### O SMOU #### [facility] [address] [place] [address] Dr. Darlene Lucero Urea nitrogen [Mass/Vol] 15.0 mg/dL Normal 7.0-18.0 [facility] Comment on above: Performed By: #### O SMOU #### [facility] [address] [place] [address] Dr. Darlene Lucero Urea nitrogen/Creatinine [Mass ratio] 19.2 mg/mg Normal [facility] Comment on above: Performed By: #### O SMOU #### [facility] [address] [place] [address] Dr. Darlene Lucero Anion gap [Moles/Vol] 9.1 mmol/L Normal [facility] Comment on above: Performed By: #### B MP #### [facility] [address] [place] [address] Dr. Darlene Lucero Calcium [Mass/Vol] 8.3 mg/dL Critically low 8.5-10.1 [facility] Comment on above: Performed By: #### B MP #### [facility] [address] [address] [address] Darlene Lucero Chloride [Moles/Vol] 86 mmol/L Critically low 98-107 [facility] Comment on above: Performed By: #### B MP #### [facility] [address] [address] [address] Darlene Lucero CO2 [Moles/Vol] 27.9 mmol/L Normal 21.0-32.0 [facility] Comment on above: Performed By: #### B MP #### [facility] [address] [address] [address] Darlene Lucero Creatinine [Mass/Vol] 0.78 mg/dL Normal 0.55-1.02 [facility] Comment on above: Performed By: #### B MP #### [facility] [address] [address] [address] Darlene Lucero EGFR-AF ALBANIAN >60 Normal >=60 [facility] Comment on above: Performed By: #### B MP #### [facility] [address] [address] [address] Darlene Lucero EGFR-NON AF ALBANIAN >60 Normal >=60 [facility] Comment on above: Performed By: #### B MP #### [facility] [address] [address] [address] Darlene Lucero Glucose [Mass/Vol] 106 mg/dL Normal 74-[address] [facility] Comment on above: Performed By: #### B MP #### [facility] [address] [address] [address] Darlene Lucero Potassium [Moles/Vol] 4.0 mmol/L Normal 3.5-5.1 [facility] Comment on above: Performed By: #### B MP #### [facility] [address] [address] [address] Darlene Lucero Sodium [Moles/Vol] 119 mmol/L Critically low 136-145 [facility] Comment on above: Performed By: #### B MP #### [facility] [address] [address] [address] Darlene Lucero Urea nitrogen [Mass/Vol] 14.0 mg/dL Normal 7.0-18.0 [facility] Comment on above: Performed By: #### B MP #### [facility] [address] [address] [address] Darlene Lucero Urea nitrogen/Creatinine [Mass ratio] 17.9 mg/mg Normal [facility] Comment on above: Performed By: #### B MP #### [facility] [address] [address] [address] Darlene Lucero Anion gap [Moles/Vol] 11.7 mmol/L Normal [facility] Comment on above: Performed By: #### B MP #### [facility] [address] [address] [address] Darlene Lucero Calcium [Mass/Vol] 8.5 mg/dL Normal 8.5-10.1 [facility] Comment on above: Performed By: #### B MP #### [facility] [address] [address] [address] Darlene Lucero Chloride [Moles/Vol] 85 mmol/L Critically low 98-107 [facility] Comment on above: Performed By: #### B MP #### [facility] [address] [address] [address] Darlene Lucero CO2 [Moles/Vol] 25.9 mmol/L Normal 21.0-32.0 [facility] Comment on above: Performed By: #### B MP #### [facility] [address] [address] [address] Darlene Lucero Creatinine [Mass/Vol] 0.85 mg/dL Normal 0.55-1.02 [facility] Comment on above: Performed By: #### B MP #### [facility] [address] [address] [address] Darlene Lucero EGFR-AF ALBANIAN >60 Normal >=60 [facility] Comment on above: Performed By: #### B MP #### [facility] [address] [address] [address] Darlene Lucero EGFR-NON AF ALBANIAN >60 Normal >=60 [facility] Comment on above: Performed By: #### B MP #### [facility] [address] [address] [address] Darlene Lucero Glucose [Mass/Vol] 105 mg/dL Normal 74-[address] [facility] Comment on above: Performed By: #### B MP #### [facility] [address] [address] [address] Darlene Lcuero Potassium [Moles/Vol] 3.6 mmol/L Normal 3.5-5.1 [facility] Comment on above: Performed By: #### B MP #### [facility] [address] [address] [address] Darlene Lucero Sodium [Moles/Vol] 119 mmol/L Critically low 136-145 [facility] Comment on above: Result Comment: repe ated Performed By: #### B MP #### [facility] [address] [place] [address] Dr. Darlene Lucero Urea nitrogen [Mass/Vol] 13.0 mg/dL Normal 7.0-18.0 [facility] Comment on above: Performed By: #### B MP #### [facility] [address] [place] [address] Dr. Darlene Lucero Urea nitrogen/Creatinine [Mass ratio] 15.3 mg/mg Normal [facility] Comment on above: Performed By: #### B MP #### [facility] [address] [address] [address] Darlene Lucero Anion gap [Moles/Vol] 11.3 mmol/L Normal [facility] Comment on above: Performed By: #### B MP #### [facility] [address] [address] [address] Darlene Lucero Calcium [Mass/Vol] 8.2 mg/dL Critically low 8.5-10.1 [facility] Comment on above: Performed By: #### B MP #### [facility] [address] [address] [address] Darleen Lucero Chloride [Moles/Vol] 85 mmol/L Critically low 98-107 [facility] Comment on above: Performed By: #### B MP #### [facility] [address] [address] [address] Darlene Lucero CO2 [Moles/Vol] 27.2 mmol/L Normal 21.0-32.0 [facility] Comment on above: Performed By: #### B MP #### [facility] [address] [address] [address] Darlene Lucero Creatinine [Mass/Vol] 0.89 mg/dL Normal 0.55-1.02 [facility] Comment on above: Performed By: #### B MP #### [facility] [address] [address] [address] Darlene Lucero EGFR-AF ALBANIAN >60 Normal >=60 [facility] Comment on above: Performed By: #### B MP #### [facility] [address] [address] [address] Darlene Lucero EGFR-NON AF ALBANIAN >60 Normal >=60 [facility] Comment on above: Performed By: #### B MP #### [facility] [address] [address] [address] Darlene Lucero Glucose [Mass/Vol] 105 mg/dL Normal 74-[address] [facility] Comment on above: Performed By: #### B MP #### [facility] [address] [place] [address] Dr. Darlene Lucero Potassium [Moles/Vol] 3.5 mmol/L Normal 3.5-5.1 [facility] Comment on above: Performed By: #### B MP #### [facility] [address] [address] [address] Darlene Lucero Sodium [Moles/Vol] 120 mmol/L Critically low 136-145 [facility] Comment on above: Result Comment: repe ated Performed By: #### B MP #### [facility] [address] [address] [address] Darlene Lucero Urea nitrogen [Mass/Vol] 12.0 mg/dL Normal 7.0-18.0 [facility] Comment on above: Performed By: #### B MP #### [facility] [address] [address] [address] Darlene Lucero Urea nitrogen/Creatinine [Mass ratio] 13.5 mg/mg Normal [facility] Comment on above: Performed By: #### B MP #### [facility] [address] [address] [address] Darlene Lucero CBC AUTO DIFFon 09-01-2021 BASO # 0.0 103/ul Normal 0.0-0.1 [facility] Comment on above: Performed By: #### U WILLEM #### [facility] [address] [place] [address] Dr. Darlene Lucero Basophils/100 WBC (Bld) 0.1 % Critically low 0.2-2.0 [facility] Comment on above: Performed By: #### U WILLEM #### [facility] [address] [place] [address] Dr. Darlene Lucero EO # 0.0 103/ul Normal 0.0-0.7 [facility] Comment on above: Performed By: #### U WILLEM #### [facility] [address] [place] [address] Dr. Darlene Lucero Eosinophils/100 WBC (Bld) 0.0 % Critically low 0.9-7.0 [facility] Comment on above: Performed By: #### U WILLEM #### [facility] [address] [place] [address] Dr. Darlene Lucero Erythrocyte distribution width (RBC) [Ratio] 11.9 % Normal 11.0-15.0 [facility] Comment on above: Performed By: #### U WILLEM #### [facility] [address] [place] [address] Dr. Darlene Lucero Hematocrit (Bld) [Volume fraction] 36.0 % Normal 36.0-48.0 [facility] Comment on above: Performed By: #### U WILLEM #### [facility] [address] [place] [address] Dr. Darlene Lucero Hemoglobin (Bld) [Mass/Vol] 12.2 g/dL Normal 12.0-16.0 [facility] Comment on above: Performed By: #### U WILLEM #### [facility] [address] [address] [address] Darlene Lucero IG # 0.07 10e3/ul Critically high 0.00-0.03 [facility] Comment on above: Performed By: #### U WILLEM #### [facility] [address] [address] [address] Darlene Lucero IG % 0.6 % Critically high 0.0-0.5 [facility] Comment on above: Performed By: #### U WILLEM #### [facility] [address] [address] [address] Darlene Lucero LYMPH # 1.1 103/ul Critically low 1.2-3.8 [facility] Comment on above: Performed By: #### U WILLEM #### [facility] [address] [place] [address] Dr. Darlene Lucero Lymphocytes/100 WBC (Bld) 9.2 % Critically low 20.5-60.0 [facility] Comment on above: Performed By: #### U WILLEM #### [facility] [address] [address] [address] Darlene Lucero MANUAL DIFF REQ NO Normal [facility] Comment on above: Performed By: #### U WILLEM #### [facility] [address] [address] [address] Darlene Lucero MCH (RBC) [Entitic mass] 29.5 pg Normal 26.7-34.0 [facility] Comment on above: Performed By: #### U WILLEM #### [facility] [address] [address] [address] Darlene Lucero MCHC (RBC) [Mass/Vol] 33.9 g/dL Normal 29.9-35.2 [facility] Comment on above: Performed By: #### U WILLEM #### [facility] [address] [address] [address] Darlene Lucero MCV (RBC) [Entitic vol] 87.0 fL Normal 81.0-99.0 [facility] Comment on above: Performed By: #### U WILLEM #### [facility] [address] [address] [address] Darlene Lucero MONO # 1.4 103/ul Critically high 0.3-0.8 [facility] Comment on above: Performed By: #### U WILLEM #### [facility] [address] [address] [address] Darlene Lucero Monocytes/100 WBC (Bld) 11.6 % Normal 1.7-12.0 [facility] Comment on above: Performed By: #### U WILLEM #### [facility] [address] [address] [address] Darlene Lucero NEUT # 9.1 103/ul Critically high 1.4-6.5 [facility] Comment on above: Performed By: #### U WILLEM #### [facility] [address] [address] [address] Darlene Lucero Neutrophils/100 WBC (Bld) 78.5 % Critically high 43.0-75.0 [facility] Comment on above: Performed By: #### U WILLEM #### [facility] [address] [address] [address] Darlene Lucero Platelet mean volume (Bld) [Entitic vol] 7.9 fL Critically low 9.5-13.5 [facility] Comment on above: Performed By: #### U WILLEM #### [facility] [address] [address] [address] Darlene Lucero PLT 447 103/ul Normal 150-450 [facility] Comment on above: Performed By: #### U WILLEM #### [facility] [address] [address] [address] Darlene Lucero RBC 4.14 106/ul Critically low 4.20-5.40 [facility] Comment on above: Performed By: #### U WILLEM #### [facility] [address] [address] [address] Darlene Lucero WBC 11.6 103/ul Critically high 4.0-11.0 [facility] Comment on above: Performed By: #### U WILLEM #### [facility] [address] [place] [address] Dr. Darlene Lucero Covid-19 PCR (CVDTB)on 08-14 SARS-CoV-2 (COVID-19) RNA TASHA+probe Ql (Unsp spec) Detected Critically abnormal NOT DETECTED [facility] Comment on above: Result Comment: This test is not yet approved or cleared by the [place] FDA. When there are no FDA-approved or cleared tests available, and other criteria are met, FDA can make tests available under an emergency access mechanism called an Emergency Use Authorization (EUA). The EUA for this test is supported by the [place] of Health and Human Service's (HHS's) declaration [...] used). Performed By: #### U WILLEM #### [facility] [address] [place] [address] Dr. Darlene Lucero PROF CHEM 8 (BAS METB)on Anion gap [Moles/Vol] 13.1 mmol/L Normal [facility] Comment on above: Performed By: #### B MP #### [facility] [address] [place] [address] Dr. Darlene Lucero Calcium [Mass/Vol] 8.4 mg/dL Critically low 8.5-10.1 [facility] Comment on above: Performed By: #### B MP #### [facility] [address] [place] [address] Dr. Darlene Lucero Chloride [Moles/Vol] 88 mmol/L Critically low 98-107 [facility] Comment on above: Performed By: #### B MP #### [facility] [address] [place] [address] Dr. Darlene Lucero CO2 [Moles/Vol] 24.0 mmol/L Normal 21.0-32.0 [facility] Comment on above: Performed By: #### B MP #### [facility] [address] [address] [address] Dralene Lucero Creatinine [Mass/Vol] 0.60 mg/dL Normal 0.55-1.02 [facility] Comment on above: Performed By: #### B MP #### [facility] [address] [address] [address] Darlene Lucero EGFR-AF ALBANIAN >60 Normal >=60 [facility] Comment on above: Performed By: #### B MP #### [facility] [address] [address] [address] Darlene Lucero EGFR-NON AF ALBANIAN >60 Normal >=60 [facility] Comment on above: Performed By: #### B MP #### [facility] [address] [address] [address] Darlene Lucero Glucose [Mass/Vol] 131 mg/dL Critically high 74-106 [facility] Comment on above: Performed By: #### B MP #### [facility] [address] [address] [address] Darlene Lucero Potassium [Moles/Vol] 4.2 mmol/L Normal 3.5-5.1 [facility] Comment on above: Performed By: #### B MP #### [facility] [address] [address] [address] Darlene Lucero Sodium [Moles/Vol] 121 mmol/L Critically low 136-145 [facility] Comment on above: Result Comment: repe ated Performed By: #### B MP #### [facility] [address] [address] [address] Darlene Lucero Urea nitrogen [Mass/Vol] 11.0 mg/dL Normal 7.0-18.0 [facility] Comment on above: Performed By: #### B MP #### [facility] [address] [address] [address] Darlene Lucero Urea nitrogen/Creatinine [Mass ratio] 18.3 mg/mg Normal [facility] Comment on above: Performed By: #### B MP #### [facility] [address] [address] [address] Darlene Lucero Anion gap [Moles/Vol] 10.4 mmol/L Normal [facility] Comment on above: Performed By: #### U WILLEM #### [facility] [address] [address] [address] Darlene Lucero Calcium [Mass/Vol] 8.1 mg/dL Critically low 8.5-10.1 [facility] Comment on above: Performed By: #### U WILLEM #### [facility] [address] [place] [address] Dr. Darlene Luecro Chloride [Moles/Vol] 85 mmol/L Critically low 98-107 [facility] Comment on above: Performed By: #### U WILLEM #### [facility] [address] [place] [address] Dr. Darlene Lcuero CO2 [Moles/Vol] 25.9 mmol/L Normal 21.0-32.0 [facility] Comment on above: Performed By: #### U WILLEM #### [facility] [address] [place] [address] Dr. Darlene Lucero Creatinine [Mass/Vol] 0.57 mg/dL Normal 0.55-1.02 [facility] Comment on above: Performed By: #### U WILLEM #### [facility] [address] [place] [address] Dr. Darlene Lucero EGFR-AF ALBANIAN >60 Normal >=60 [facility] Comment on above: Performed By: #### U WILLEM #### [facility] [address] [address] [address] Darlene Lucero EGFR-NON AF ALB[place]IAN >60 Normal >=60 [facility] Comment on above: Performed By: #### U WILLEM #### [facility] [address] [address] [address] Darlene Lucero Glucose [Mass/Vol] 139 mg/dL Critically high 74-106 [facility] Comment on above: Performed By: #### U WILLEM #### [facility] [address] [address] [address] Darlene Lucero Potassium [Moles/Vol] 4.3 mmol/L Normal 3.5-5.1 [facility] Comment on above: Result Comment: SPEC IMEN SLIGHTLY HEMOLYZED MAY AFFECT K+ Performed By: #### U WILLEM #### [facility] [address] [address] [address] Darlene Lucero Sodium [Moles/Vol] 117 mmol/L Critically low 136-145 [facility] Comment on above: Result Comment: TEST REPEATED CRITICAL VALUE VERIFIED Performed By: #### U WILLEM #### [facility] [address] [address] [address] Darlene Lucero Urea nitrogen [Mass/Vol] 9.0 mg/dL Normal 7.0-18.0 [facility] Comment on above: Performed By: #### U WILLEM #### [facility] [address] [place] [address] Dr. Darlene Lucero Urea nitrogen/Creatinine [Mass ratio] 15.8 mg/mg Normal [facility] Comment on above: Performed By: #### U WILLEM #### [facility] [address] [place] [address] Dr. Darlene Lucero Anion gap [Moles/Vol] 12.9 mmol/L Normal [facility] [facility] Comment on above: Performed By: #### O SMOU #### [facility] [address] [place] [address] Dr. Darlene Lucero Calcium [Mass/Vol] 8.3 mg/dL Critically low 8.5-10.1 [facility] Comment on above: Performed By: #### O SMOU #### [facility] [address] [place] [address] Dr. Darlene Lucero Chloride [Moles/Vol] 84 mmol/L Critically low 98-107 [facility] Comment on above: Result Comment: test repeated critical value verified Performed By: #### O SMOU #### [facility] [address] [place] [address] Dr. Darlene Lucero CO2 [Moles/Vol] 25.1 mmol/L Normal 21.0-32.0 [facility] Comment on above: Performed By: #### O SMOU #### [facility] [address] [address] [address] Darlene Lucero Creatinine [Mass/Vol] 0.56 mg/dL Normal 0.55-1.02 [facility] Comment on above: Performed By: #### O SMOU #### [facility] [address] [address] [address] Darlene Lucero EGFR-AF ALBANIAN >60 Normal >=60 [facility] Comment on above: Performed By: #### O SMOU #### [facility] [address] [address] [address] Darlene Lucero EGFR-NON AF ALBANIAN >60 Normal >=60 [facility] Comment on above: Performed By: #### O SMOU #### [facility] [address] [place] [address] Dr. Darlene Lucero Potassium [Moles/Vol] 3.9 mmol/L Normal 3.5-5.1 [facility] Comment on above: Performed By: #### O SMOU #### [facility] [address] [place] [address] Dr. Darlene Lucero Sodium [Moles/Vol] 116 mmol/L Critically low 136-145 [facility] Comment on above: Result Comment: test repeated critical value verified Performed By: #### O SMOU #### [facility] [address] [place] [address] Dr. Darlene Lucero Urea nitrogen [Mass/Vol] 10.0 mg/dL Normal 7.0-18.0 [facility] Comment on above: Performed By: #### O SMOU #### [facility] [address] [place] [address] Dr. Darlene Lucero Urea nitrogen/Creatinine [Mass ratio] 17.9 mg/mg Normal [facility] Comment on above: Performed By: #### O SMOU #### [facility] [address] [place] [address] Dr. Darlene Lucero Anion gap [Moles/Vol] 11.9 mmol/L Normal [facility] Comment on above: Performed By: #### U WILLEM #### [facility] [address] [place] [address] Dr. Darlene Lucero Calcium [Mass/Vol] 8.4 mg/dL Critically low 8.5-10.1 [facility] Comment on above: Performed By: #### U WILLEM #### [facility] [address] [place] [address] Dr. Darlene Lucero Chloride [Moles/Vol] 81 mmol/L Critically low 98-107 [facility] Comment on above: Result Comment: TEST REPEATED CRITICAL VALUE VERIFIED Performed By: #### U WILLEM #### [facility] [address] [place] [address] Dr. Darlene Lucero CO2 [Moles/Vol] 27.8 mmol/L Normal 21.0-32.0 [facility] Comment on above: Performed By: #### U WILLEM #### [facility] [address] [place] [address] Dr. Darlene Lucero Creatinine [Mass/Vol] 0.60 mg/dL Normal 0.55-1.02 [facility] Comment on above: Performed By: #### U WILLEM #### [facility] [address] [place] [address] Dr. Darlene Lucero EGFR-AF ALBANIAN >60 Normal >=60 [facility] Comment on above: Performed By: #### U WILLEM #### [facility] [address] [place] [address] Dr. Darlene Lucero EGFR-NON AF ALBANIAN >60 Normal >=60 [facility] Comment on above: Performed By: #### U WILLEM #### [facility] [address] [address] [address] Darlene Lucero Glucose [Mass/Vol] 131 mg/dL Critically high 74-106 [facility] Comment on above: Performed By: #### U WILLEM #### [facility] [address] [place] [address] Dr. Darlene Lucero Potassium [Moles/Vol] 3.7 mmol/L Normal 3.5-5.1 [facility] Comment on above: Performed By: #### U WILLEM #### [facility] [address] [place] [address] Dr. Darlene Lucero Sodium [Moles/Vol] 117 mmol/L Critically low 136-145 [facility] Comment on above: Result Comment: TEST REPEATED CRITICAL VALUE VERIFIED Performed By: #### U WILLEM #### [facility] [address] [address] [address] Darlene Lucero Urea nitrogen [Mass/Vol] 9.0 mg/dL Normal 7.0-18.0 [facility] Comment on above: Performed By: #### U WILLEM #### [facility] [address] [address] [address] Darlene Lucero Urea nitrogen/Creatinine [Mass ratio] 15.0 mg/mg Normal [facility] Comment on above: Performed By: #### U WILLEM #### [facility] [address] [address] [address] Darlene Lucero Anion gap [Moles/Vol] 10.9 mmol/L Normal [facility] Comment on above: Performed By: #### B MP #### [facility] [address] [address] [address] Darlene Lucero Calcium [Mass/Vol] 8.3 mg/dL Critically low 8.5-10.1 [facility] Comment on above: Performed By: #### B MP #### [facility] [address] [address] [address] Darlene Lucero Chloride [Moles/Vol] 87 mmol/L Critically low 98-107 [facility] Comment on above: Performed By: #### B MP #### [facility] [address] [address] [address] Darlene Lucero CO2 [Moles/Vol] 25.7 mmol/L Normal 21.0-32.0 [facility] Comment on above: Performed By: #### B MP #### [facility] [address] [address] [address] Darlene Lucero Creatinine [Mass/Vol] 0.69 mg/dL Normal 0.55-1.02 [facility] Comment on above: Performed By: #### B MP #### [facility] [address] [address] [address] Darlene Lucero EGFR-AF ALBANIAN >60 Normal >=60 [facility] Comment on above: Performed By: #### B MP #### [facility] [address] [address] [address] Darlene Lucero EGFR-NON AF ALB[place]IAN >60 Normal >=60 [facility] Comment on above: Performed By: #### B MP #### [facility] [address] [address] [address] Darlene Lucero Glucose [Mass/Vol] 139 mg/dL Critically high 74-106 [facility] Comment on above: Performed By: #### B MP #### [facility] [address] [address] [address] Darlene Lucero Potassium [Moles/Vol] 3.7 mmol/L Normal 3.5-5.1 [facility] Comment on above: Performed By: #### B MP #### [facility] [address] [address] [address] Darlene Lucero Sodium [Moles/Vol] 121 mmol/L Critically low 136-145 [facility] Comment on above: Result Comment: Test Repeated. Critical Value Verified Performed By: #### B MP #### [facility] [address] [address] [address] Darlene Lucero Urea nitrogen [Mass/Vol] 9.0 mg/dL Normal 7.0-18.0 [facility] Comment on above: Performed By: #### B MP #### [facility] [address] [address] [address] Darlene Lucero Urea nitrogen/Creatinine [Mass ratio] 13.0 mg/mg Normal [facility] Comment on above: Performed By: #### B MP #### [facility] [address] [address] [address] Darlene Lucero Anion gap [Moles/Vol] 12.7 mmol/L Normal [facility] Comment on above: Performed By: #### O SMOU #### [facility] [address] [address] [address] Darlene Lucero Calcium [Mass/Vol] 8.0 mg/dL Critically low 8.5-10.1 [facility] Comment on above: Performed By: #### O SMOU #### [facility] [address] [address] [address] Darlene Lucero Chloride [Moles/Vol] 87 mmol/L Critically low 98-107 [facility] Comment on above: Performed By: #### O SMOU #### [facility] [address] [address] [address] Darlene Lucero CO2 [Moles/Vol] 24.0 mmol/L Normal 21.0-32.0 [facility] Comment on above: Performed By: #### O SMOU #### [facility] [address] [address] [address] Darlene Lucero Creatinine [Mass/Vol] 0.52 mg/dL Critically low 0.55-1.02 [facility] Comment on above: Performed By: #### O SMOU #### [facility] [address] [place] [address] Dr. Darlene Lucero EGFR-AF ALBANIAN >60 Normal >=60 [facility] Comment on above: Performed By: #### O SMOU #### [facility] [address] [place] [address] Dr. Darlene Lucero EGFR-NON AF [place]IAN >60 Normal >=60 [facility] Comment on above: Performed By: #### O SMOU #### [facility] [address] [address] [address] Darlene Lucero Glucose [Mass/Vol] 158 mg/dL Critically high 74-106 [facility] Comment on above: Performed By: #### O SMOU #### [facility] [address] [place] [address] Dr. Darlene Lucero Potassium [Moles/Vol] 3.7 mmol/L Normal 3.5-5.1 [facility] Comment on above: Performed By: #### O SMOU #### [facility] [address] [address] [address] Darlene Lucero Sodium [Moles/Vol] 120 mmol/L Critically low 136-145 [facility] Comment on above: Result Comment: Test Repeated. Critical Value Verified Performed By: #### O SMOU #### [facility] [address] [place] [address] Dr. Darlene Lucero Urea nitrogen [Mass/Vol] 9.0 mg/dL Normal 7.0-18.0 [facility] Comment on above: Performed By: #### O SMOU #### [facility] [address] [place] [address] Dr. Darlene Lucero Urea nitrogen/Creatinine [Mass ratio] 17.3 mg/mg Normal [facility] Comment on above: Performed By: #### O SMOU #### [facility] [address] [place] [address] Dr. Darlene Lucero BNPon 08-31-2021 Natriuretic peptide B (Bld) [Mass/Vol] 898.0 pg/mL Normal <=900.0 [facility] Comment on above: Performed By: #### B MP #### [facility] [address] [place] [address] Dr. Darlene Lucero CBC AUTO DIFFon 08-31-2021 BASO # 0.0 103/ul Normal 0.0-0.1 [facility] Comment on above: Performed By: #### B MP #### [facility] [address] [place] [address] Dr. Darlene Lucero Basophils/100 WBC (Bld) 0.0 % Critically low 0.2-2.0 [facility] Comment on above: Performed By: #### B MP #### [facility] [address] [place] [address] Dr. Darlene Lucero EO # 0.0 103/ul Normal 0.0-0.7 [facility] Comment on above: Performed By: #### B MP #### [facility] [address] [place] [address] Dr. Darlene Lucero Eosinophils/100 WBC (Bld) 0.0 % Critically low 0.9-7.0 [facility] Comment on above: Performed By: #### B MP #### [facility] [address] [place] [address] Dr. Darlene Lucero Erythrocyte distribution width (RBC) [Ratio] 12.0 % Normal 11.0-15.0 [facility] Comment on above: Performed By: #### B MP #### [facility] [address] [place] [address] Dr. Darlene Lucero Hematocrit (Bld) [Volume fraction] 35.7 % Critically low 36.0-48.0 [facility] Comment on above: Performed By: #### B MP #### [facility] [address] [place] [address] Dr. Darlene Lucero Hemoglobin (Bld) [Mass/Vol] 12.5 g/dL Normal 12.0-16.0 [facility] Comment on above: Performed By: #### B MP #### [facility] [address] [place] [address] Dr. Darlene Lucero IG # 0.03 10e3/ul Normal 0.00-0.03 [facility] Comment on above: Performed By: #### B MP #### [facility] [address] [place] [address] Dr. Darlene Lucero IG % 0.4 % Normal 0.0-0.5 [facility] Comment on above: Performed By: #### B MP #### [facility] [address] [place] [address] Dr. Darlene Lucero LYMPH # 1.5 103/ul Normal 1.2-3.8 [facility] Comment on above: Performed By: #### B MP #### [facility] [address] [place] [address] Dr. Darlene Lucero Lymphocytes/100 WBC (Bld) 22.3 % Normal 20.5-60.0 [facility] Comment on above: Performed By: #### B MP #### [facility] [address] [place] [address] Dr. Darlene Lucero MANUAL DIFF REQ NO Normal [facility] Comment on above: Performed By: #### B MP #### [facility] [address] [place] [address] Dr. Darlene Lucero MCH (RBC) [Entitic mass] 29.6 pg Normal 26.7-34.0 [facility] Comment on above: Performed By: #### B MP #### [facility] [address] [address] [address] Darlene Lucero MCHC (RBC) [Mass/Vol] 35.0 g/dL Normal 29.9-35.2 [facility] Comment on above: Performed By: #### B MP #### [facility] [address] [address] [address] Darlene Lucero MCV (RBC) [Entitic vol] 84.6 fL Normal 81.0-99.0 [facility] Comment on above: Performed By: #### B MP #### [facility] [address] [address] [address] Darlene Lucero MONO # 0.8 103/ul Normal 0.3-0.8 [facility] Comment on above: Performed By: #### B MP #### [facility] [address] [address] [address] Darlene Lucero Monocytes/100 WBC (Bld) 11.5 % Normal 1.7-12.0 [facility] Comment on above: Performed By: #### B MP #### [facility] [address] [address] [address] Darlene Lucero NEUT # 4.5 103/ul Normal 1.4-6.5 [facility] Comment on above: Performed By: #### B MP #### [facility] [address] [address] [address] Darlene Lucero Neutrophils/100 WBC (Bld) 65.8 % Normal 43.0-75.0 [facility] Comment on above: Performed By: #### B MP #### [facility] [address] [address] [address] Darlene Lucero Platelet mean volume (Bld) [Entitic vol] 7.9 fL Critically low 9.5-13.5 [facility] Comment on above: Performed By: #### B MP #### [facility] [address] [address] [address] Darlene Lucero PLT 457 103/ul Critically high 150-450 [facility] Comment on above: Performed By: #### B MP #### [facility] [address] [place] [address] Dr. Darlene Lucero RBC 4.22 106/ul Normal 4.20-5.40 [facility] Comment on above: Performed By: #### B MP #### [facility] [address] [place] [address] Dr. Darlene Lucero WBC 6.9 103/ul Normal 4.0-11.0 [facility] Comment on above: Performed By: #### B MP #### [facility] [address] [place] [address] Dr. Darlene Lucero CREATININE URINEon 2 URINE CREAT 91.14 mg/dL Normal 20.00-300.00 [facility] Comment on above: Performed By: #### C ANT CALDERAU #### [facility] [address] [place] [address] Dr. Darlene Lucero ER URINE PROFILEon 2 Bilirubin Ql (U) Negative Normal NEGATIVE [facility] Comment on above: Performed By: #### U WILLEM #### [facility] [address] [place] [address] Dr. Darlene Lucero Clarity (U) CLEAR Normal CLEAR [facility] Comment on above: Performed By: #### U WILLEM #### [facility] [address] [place] [address] Dr. Darlene Lucero Color (U) LT. YELLOW Normal YELLOW [facility] Comment on above: Performed By: #### U WILLEM #### [facility] [address] [place] [address] Dr. Darlene BAKER A micrscopic examination will be performed if indicated. Normal [facility] Comment on above: Performed By: #### U WILLEM #### [facility] [address] [place] [address] Dr. Darlene Lucero Glucose Ql (U) Negative Normal NEGATIVE [facility] Comment on above: Performed By: #### U WILLEM #### [facility] [address] [place] [address] Dr. Darlene Lucero Hemoglobin Ql (U) TRACE-INTACT Abnormal NEGATIVE [facility] Comment on above: Performed By: #### U WILLEM #### [facility] [address] [place] [address] Dr. Darlene Lucero Ketones Ql (U) 15 mg/dl Abnormal NEGATIVE [facility] Comment on above: Performed By: #### U WILLEM #### [facility] [address] [place] [address] Dr. Darlene Lucero LEUKOCYTES Negative Normal NEGATIVE [facility] Comment on above: Performed By: #### U WILLEM #### [facility] [address] [place] [address] Dr. Darlene Lucero Nitrite Ql (U) Negative Normal NEGATIVE [facility] Comment on above: Performed By: #### U WILLEM #### [facility] [address] [place] [address] Dr. Darlene Lucero pH (U) 6.5 [pH] Normal 5-9 [facility] Comment on above: Performed By: #### U WILLEM #### [facility] [address] [place] [address] Dr. Darlene Lucero Protein (U) [Mass/Vol] 30 mg/dL Abnormal NEGATIVE/ TRACE [facility] Comment on above: Performed By: #### U WILLEM #### [facility] [address] [place] [address] Dr. Darlene Lucero SPEC GRAVITY 1.020 Normal 1.005-<=1.025 [facility] Comment on above: Performed By: #### U WILLEM #### [facility] [address] [place] [address] Dr. Darlene Lucero UR MICRO IND INDICATED Normal [facility] Comment on above: Performed By: #### U WILLEM #### [facility] [address] [place] [address] Dr. Darlene Lucero Urobilinogen Qn (U) 0.2 {Claudia'U}/dL Normal 0.2 - 1. 0 [facility] Comment on above: Performed By: #### U WILLEM #### [facility] [address] [place] [address] Dr. Darlene Lucero POINT OF CARE GLUCOSEon 08-14 Glucose [Mass/Vol] 147 mg/dL Critically high 74-106 [facility] Comment on above: Performed By: #### B MP #### [facility] [address] [address] [address] Darlene Lucero PROF CHEM 8 (BAS METB)on Anion gap [Moles/Vol] 13.4 mmol/L Normal [facility] Comment on above: Performed By: #### U WILLEM #### [facility] [address] [address] [address] Darlene Lucero Calcium [Mass/Vol] 8.2 mg/dL Critically low 8.5-10.1 [facility] Comment on above: Performed By: #### U WILLEM #### [facility] [address] [place] [address] Dr. Darlene Lucero Chloride [Moles/Vol] 86 mmol/L Critically low 98-107 [facility] Comment on above: Performed By: #### U WILLEM #### [facility] [address] [place] [address] Dr. Darlene Lucero CO2 [Moles/Vol] 23.4 mmol/L Normal 21.0-32.0 [facility] Comment on above: Performed By: #### U WILLEM #### [facility] [address] [place] [address] Dr. Darlene Lucero Creatinine [Mass/Vol] 0.51 mg/dL Critically low 0.55-1.02 [facility] Comment on above: Performed By: #### U WILLEM #### [facility] [address] [address] [address] Darlene Lucero EGFR-AF ALBANIAN >60 Normal >=60 [facility] Comment on above: Performed By: #### U WILLEM #### [facility] [address] [place] [address] Dr. Darlene Lucero EGFR-NON AF [place]IAN >60 Normal >=60 [facility] Comment on above: Performed By: #### U WILLEM #### [facility] [address] [place] [address] Dr. Darlene Lucero Glucose [Mass/Vol] 145 mg/dL Critically high 74-106 [facility] Comment on above: Performed By: #### U WILLEM #### [facility] [address] [address] [address] Darlene Lucero Potassium [Moles/Vol] 3.8 mmol/L Normal 3.5-5.1 [facility] Comment on above: Performed By: #### U WILLEM #### [facility] [address] [place] [address] Dr. Darlene Lucero Sodium [Moles/Vol] 119 mmol/L Critically low 136-145 [facility] Comment on above: Result Comment: Test Repeated. Critical Value Verified Performed By: #### U WILLEM #### [facility] [address] [place] [address] Dr. Darlene Lucero Urea nitrogen [Mass/Vol] 11.0 mg/dL Normal 7.0-18.0 [facility] Comment on above: Performed By: #### U WILLEM #### [facility] [address] [place] [address] Dr. Darlene Lucero Urea nitrogen/Creatinine [Mass ratio] 21.6 mg/mg Normal [facility] Comment on above: Performed By: #### U WILLEM #### [facility] [address] [place] [address] Dr. Darlene Lucero Anion gap [Moles/Vol] 11.9 mmol/L Normal [facility] Comment on above: Performed By: #### B MP #### [facility] [address] [place] [address] Dr. Darlene Lucero Calcium [Mass/Vol] 8.0 mg/dL Critically low 8.5-10.1 [facility] Comment on above: Performed By: #### B MP #### [facility] [address] [place] [address] Dr. Darlene Lucero Chloride [Moles/Vol] 83 mmol/L Critically low 98-107 [facility] Comment on above: Performed By: #### B MP #### [facility] [address] [place] [address] Dr. Darlene Lucero CO2 [Moles/Vol] 24.9 mmol/L Normal 21.0-32.0 [facility] Comment on above: Performed By: #### B MP #### [facility] [address] [address] [address] Darlene Lucero Creatinine [Mass/Vol] 0.61 mg/dL Normal 0.55-1.02 [facility] Comment on above: Performed By: #### B MP #### [facility] [address] [address] [address] Darlene Lucero EGFR-AF ALBANIAN >60 Normal >=60 [facility] Comment on above: Performed By: #### B MP #### [facility] [address] [place] [address] Dr. Darlene Lucero EGFR-NON AF [place]IAN >60 Normal >=60 [facility] Comment on above: Performed By: #### B MP #### [facility] [address] [place] [address] Dr. Darlene Lucero Glucose [Mass/Vol] 212 mg/dL Critically high 74-106 [facility] Comment on above: Performed By: #### B MP #### [facility] [address] [place] [address] Dr. Darlene Lucero Potassium [Moles/Vol] 3.7 mmol/L Normal 3.5-5.1 [facility] Comment on above: Performed By: #### B MP #### [facility] [address] [place] [address] Dr. Darlene Lucero Sodium [Moles/Vol] 116 mmol/L Critically low 136-145 [facility] Comment on above: Performed By: #### B MP #### [facility] [address] [place] [address] Dr. Darlene Lucero Urea nitrogen [Mass/Vol] 12.0 mg/dL Normal 7.0-18.0 [facility] Comment on above: Performed By: #### B MP #### [facility] [address] [place] [address] Dr. Darlene Lucero Urea nitrogen/Creatinine [Mass ratio] 19.7 mg/mg Normal [facility] Comment on above: Performed By: #### B MP #### [facility] [address] [address] [address] Darlene Lucero Anion gap [Moles/Vol] 11.7 mmol/L Normal [facility] Comment on above: Performed By: #### B MP #### [facility] [address] [address] [address] Darlene Lucero Calcium [Mass/Vol] 8.0 mg/dL Critically low 8.5-10.1 [facility] Comment on above: Performed By: #### B MP #### [facility] [address] [address] [address] Darlene Lucero Chloride [Moles/Vol] 86 mmol/L Critically low 98-107 [facility] Comment on above: Performed By: #### B MP #### [facility] [address] [address] [address] Darlene Lucero CO2 [Moles/Vol] 27.6 mmol/L Normal 21.0-32.0 [facility] Comment on above: Performed By: #### B MP #### [facility] [address] [address] [address] Darlene Lucero Creatinine [Mass/Vol] 0.57 mg/dL Normal 0.55-1.02 [facility] Comment on above: Performed By: #### B MP #### [facility] [address] [address] [address] Darlene Lucero EGFR-AF ALBANIAN >60 Normal >=60 [facility] Comment on above: Performed By: #### B MP #### [facility] [address] [address] [address] Darlene Lucero EGFR-NON AF ALBANIAN >60 Normal >=60 [facility] Comment on above: Performed By: #### B MP #### [facility] [address] [address] [address] Darlene Lucero Glucose [Mass/Vol] 152 mg/dL Critically high 74-106 [facility] Comment on above: Performed By: #### B MP #### [facility] [address] [address] [address] Darlene Lucero Potassium [Moles/Vol] 4.3 mmol/L Normal 3.5-5.1 [facility] Comment on above: Performed By: #### B MP #### [facility] [address] [address] [address] Darlene Lucero Sodium [Moles/Vol] 120 mmol/L Critically low 136-145 [facility] Comment on above: Performed By: #### B MP #### [facility] [address] [address] [address] Darlene Lucero Urea nitrogen [Mass/Vol] 12.0 mg/dL Normal 7.0-18.0 [facility] Comment on above: Performed By: #### B MP #### [facility] [address] [address] [address] Darlene Lucero Urea nitrogen/Creatinine [Mass ratio] 21.1 mg/mg Normal [facility] Comment on above: Performed By: #### B MP #### [facility] [address] [address] [address] Darlene Lucero Anion gap [Moles/Vol] 10.2 mmol/L Normal [facility] Comment on above: Performed By: #### B MP #### [facility] [address] [address] [address] Darlene Lucero Calcium [Mass/Vol] 8.6 mg/dL Normal 8.5-10.[address] [facility] Comment on above: Performed By: #### B MP #### [facility] [address] [address] [address] Darlene Lucero Chloride [Moles/Vol] 78 mmol/L Critically low 98-107 [facility] Comment on above: Performed By: #### B MP #### [facility] [address] [address] [address] Darlene Lucero CO2 [Moles/Vol] 29.6 mmol/L Normal 21.0-32.0 [facility] Comment on above: Performed By: #### B MP #### [facility] [address] [address] [address] Darlene Lucero Creatinine [Mass/Vol] 0.70 mg/dL Normal 0.55-1.02 [facility] Comment on above: Performed By: #### B MP #### [facility] [address] [place] [address] Dr. Darlene Lucero EGFR-AF ALBANIAN >60 Normal >=60 [facility] Comment on above: Performed By: #### B MP #### [facility] [address] [address] [address] Darlene Lucero EGFR-NON AF ALBANIAN >60 Normal >=60 [facility] Comment on above: Performed By: #### B MP #### [facility] [address] [place] [address] Dr. Darlene Lucero Glucose [Mass/Vol] 116 mg/dL Critically high 74-106 [facility] Comment on above: Performed By: #### B MP #### [facility] [address] [place] [address] Dr. Darlene Lucero Potassium [Moles/Vol] 3.8 mmol/L Normal 3.5-5.1 [facility] Comment on above: Performed By: #### B MP #### [facility] [address] [place] [address] Dr. Darlene Lucero Sodium [Moles/Vol] 114 mmol/L Critically low 136-145 [facility] Comment on above: Performed By: #### B MP #### [facility] [address] [place] [address] Dr. Darlene Lucero Urea nitrogen [Mass/Vol] 17.0 mg/dL Normal 7.0-18.0 [facility] Comment on above: Performed By: #### B MP #### [facility] [address] [place] [address] Dr. Darlene Lucero Urea nitrogen/Creatinine [Mass ratio] 24.3 mg/mg Normal [facility] Comment on above: Performed By: #### B MP #### [facility] [address] [place] [address] Dr. Darlene Lucero SODIUM RANDOM URINEon 2021 Sodium (U) [Moles/Vol] 61 mmol/L Normal 30-90 [facility] Comment on above: Performed By: #### U WILLEM #### [facility] [address] [place] [address] Dr. Darlene Lucero TROPONIN, HIGH SENSITIVITYon 08-31-2021 HSTROP 14.6 pg/mL Normal 4.0-51.3 [facility] Comment on above: Result Comment: CUT- OFF POINTS HAVE BEEN ESTABLISHED BASED ON THE FOURTH UNIVERSAL DEFINITIONS OF MYOCARDIAL INFARCTION. THE UPPER REFERENCE LIMIT (URL) OF TROPONIN, DEFINED THE 99TH PERCENTILE OF cTnI DISTRIBUTION IN A REFERENCE POPULATION, HAS BEEN CONFIRMED THE DECISION THRESHOLD FOR NE DIAGNOSIS. Performed By: #### B MP #### [facility] [address] [place] [address] Dr. Darlene Lucero TSHon 08-31-2021 TSH 1.053 uIU/mL Normal 0.358-3.740 [facility] Comment on above: Performed By: #### B MP #### [facility] [address] [place] [address] Dr. Darlene Lucero TSH RANGE SEE BELOW Normal [facility] Comment on above: Result Comment: <0.3 4 UIU/ml HYPERTHYROID 0.34-5.60 UIU/ml EUTHYROID >5.60 UIU/ml HYPOTHYROID Performed By: #### B MP #### [facility] [address] [place] [address] Dr. Darlene Lucero URIC ACID SERUMon 08-31-2021 Urate [Mass/Vol] 1.4 mg/dL Critically low 2.6-6.0 [facility] Comment on above: Performed By: #### U WILLEM #### [facility] [address] [place] [address] Dr. Darlene Lucero URINE MICROSCOPIC ONLYon BACTERIA NONE SEEN Normal NONE SEEN [facility] Comment on above: Performed By: #### O SMOU #### [facility] [address] [place] [address] Dr. Darlene Lucero Bacteria identified Cx Nom (U) NOT INDICATED Normal [facility] Comment on above: Performed By: #### O SMOU #### [facility] [address] [place] [address] Dr. Darlene Lucero CAST NONE SEEN Normal NONE SEEN [facility] Comment on above: Performed By: #### O SMOU #### [facility] [address] [place] [address] Dr. Darlene Lucero Crystals LM Nom (Urine sed) NONE SEEN Normal NONE SEEN [facility] Comment on above: Performed By: #### O SMOU #### [facility] [address] [place] [address] Dr. Darlene Lucero Epithelial cells LM Ql (Urine sed) FEW Abnormal NONE SEEN /RARE [facility] Comment on above: Performed By: #### O SMOU #### [facility] [address] [place] [address] Dr. Darlene Lucero MUCOUS TRACE Abnormal NONE SEEN [facility] Comment on above: Performed By: #### O SMOU #### [facility] [address] [place] [address] Dr. Darlene Lucero RBC 0-2 Normal 0-2 [facility] Comment on above: Performed By: #### O SMOU #### [facility] [address] [place] [address] Dr. Darlene Lucero WBC NONE SEEN Normal NONE SEEN [facility] Comment on above: Performed By: #### O SMOU #### [facility] [address] [place] [address] Dr. Darlene Lucero URINE T PROTEIN CREAT RATIOo n 08-31-2021 Protein (U) [Mass/Vol] 67.7 mg/dL Critically high <=12.0 [facility] Comment on above: Performed By: #### B MP #### [facility] [address] [place] [address] Dr. Darlene Lucero UR PROT CREAT RAT 0.75 Normal [facility] Comment on above: Performed By: #### B MP #### [facility] [address] [place] [address] Dr. Darlene Lucero URINE CREAT 89.84 mg/dL Normal 20.00-300.00 [facility] Comment on above: Performed By: #### B #### [facility] [address] [address] [address] Darlene Lucero XR CHEST 1 Von [...] by: CHAYITO SOLIS Date: 2021-08-31 09:07 Normal [facility] Vital Signs Date Time Vital Sign Value Performing Clinician Faci lity 04-11-2024 10:48-0500 Body height 157.5 cm Flaco Resendiz MD Work Phone: [facility] 04-11-2024 10:48-0500 Body mass index (BMI) [Ratio] 26.12 kg/m2 Flaco Resendiz MD Work Phone: [facility] 04-11-2024 10:48-0500 Body weight 64.77 kg Flaco Resendiz MD Work Phone: [facility] 04-11-2024 10:48-0500 Diastolic blood pressure 73 mm[Hg] Flaco Resendiz MD Work Phone: [facility] 04-11-2024 10:48-0500 Heart rate 72 /min Flaco Resendiz MD Work Phone: [facility] 04-11-2024 10:48-0500 SaO2% (BldA) [Mass fraction] 98 % Flaco Resendiz MD Work Phone: [facility] 04-11-2024 10:48-0500 Systolic blood pressure 138 mm[Hg] Flaco Resendiz MD Work Phone: [facility] 01-04-2024 09:25-0400 Body height 157.5 cm Flaco Resendiz MD Work Phone: [facility] 01-04-2024 09:25-0400 Body mass index (BMI) [Ratio] 25.97 kg/m2 Flaco Resendiz MD Work Phone: [facility] 01-04-2024 09:25-0400 Body weight 64.41 kg Flaco Resendiz MD Work Phone: [facility] 01-04-2024 09:25-0400 Diastolic blood pressure 76 mm[Hg] Flaco Resendiz MD Work Phone: [facility] 01-04-2024 09:25-0400 Systolic blood pressure 135 mm[Hg] Flaco Resendiz MD Work Phone: [facility] Healthcare Encounters Encounter Date Encounter Type Care Provider Facility Start: 04-11-2024 End: 04-11-2024 Office outpatient visit 25 minutes Flaco Resendiz MD Work Phone: [facility] Comment on above: Panlobular emphysema (CMS/HCC) (Primary Dx); Hyponatremia; Pure hypercholesterolemia (CMS/HCC); Postablative hypothyroidism (CMS/HCC); Generalized anxiety disorder (CMS/HCC) Start: 04-11-2024 End: 04-11-2024 ambulatory FLACO RESENDIZ Not Available Start: 03-21-2024 End: 03-21-2024 Clinisync Result Encounter Flaco Resendiz MD Work Phone: [facility] External Department Unsolicited Start: 03-21-2024 End: 03-21-2024 Clinisync Result Encounter Flaco Resendiz MD Work Phone: [facility] External Department Unsolicited Start: 01-04-2024 End: 01-04-2024 ambulatory FLACO RESENDIZ Not Available Start: 01-04-2024 End: 01-04-2024 Office outpatient visit 25 minutes Flaco Resendiz MD Work Phone: [facility] Comment on above: Hyponatremia (Primar y Dx); Panlobular emphysema (CMS/HCC); Essential hypertension (CMS/HCC); Acquired hypothyroidism (CMS/HCC); Pure hypercholesterolemia (CMS/HCC) Start: 08-24-2023 End: 08-24-2023 ambulatory FLACO RESENDIZ Not Available Start: 06-01-2023 End: 06-01-2023 ambulatory FLACO RESENDIZ Not Available Start: 05-18-2023 Clinisync Result Encounter José Miguel Resendiz MD Work Phone: [facility] Unsolicited Start: 05-18-2023 Clinisync Result Encounter José Miguel Resendiz MD Work Phone: [facility] Unsolicited Start: 08-05-2022 End: 08-06-[address] FLACO [...] Date Procedure Procedure Detail Performing Clinician Start: 03-21-2024 ALL CBC WITH AUTO DIFF Flaco Resendiz MD Work Phone: Start: 05-18-2023 ALL BASIC METABOLIC PANEL Flaco Resendiz MD Work Phone: Plan of Treatment Date Care Activity Detail Author Start: 07-18-2024 End: 07-18-2024 Telemedicine consultation with patient 07/18/2024 8:30 AM EDT Telemedicine [facility] [address] [facility] [address] [place] [address] Flaco Resendiz MD [address] [facility] [address] [place] [address] [facility] Start: 07-10-2024 End: 04-11-2025 CBC W Auto Differential panel - Blood CBC and differential Lab Routine Hyponatremia Pure hypercholesterolemia (CMS/HCC) Expected: 07/10/2024 (Approximate), Expires: 04/11/2025 [facility] Comment on above: Expected: 07/10/2024 (Approximate), Expi res: 04/11/2025 Start: 07-10-2024 End: 04-11-2025 Comprehensive metabolic 2000 panel - Serum or Plasma Comprehensive metabolic panel Lab Routine Hyponatremia Expected: 07/10/2024 (Approximate), Expires: 04/11/2025 [facility] Work Phone: Comment on above: Expected: 07/10/2024 (Approximate), Expi res: 04/11/2025 Start: 07-10-2024 End: 04-11-2025 Lipid 1996 panel - Serum or Plasma Lipid panel Lab Routine Pure hypercholesterolemia (CMS/HCC) Expected: 07/10/2024 (Approximate), Expires: 04/11/2025 [facility] Comment on above: Expected: 07/10/2024 (Approximate), Expi res: 04/11/2025 Start: 07-10-2024 End: 04-11-2025 TSH W/REFLEX TO FT4 TSH W/REFLEX TO FT4 Lab Routine Postablative hypothyroidism (CMS/HCC) Expected: 07/10/2024 (Approximate), Expires: 04/11/2025 [facility] Comment on above: Expected: 07/10/2024 (Approximate), Expi res: 04/11/2025 Start: 03-28-2024 End: 03-28-2024 Telemedicine consultation with patient 03/28/2024 9:00 AM EST Telemedicine [facility] [address] [facility] [address] [place] [address] Flaco Resendiz MD [address] [facility] [address] [place] [id number] [facility] Start: 03-16-2024 End: 01-03-2025 CBC W Auto Differential panel - Blood CBC and differential Lab Routine Panlobular emphysema (CMS/HCC) Essential hypertension (CMS/HCC) Acquired hypothyroidism (CMS/HCC) Expected: 03/16/2024 (Approximate), Expires: 01/03/2025 [facility] Work Phone: Comment on above: Expected: 03/16/2024 (Approximate), Expi res: 01/03/2025 Start: 03-16-2024 End: 01-03-2025 Comprehensive metabolic 2000 panel - Serum or Plasma Comprehensive metabolic panel Lab Routine Hyponatremia Essential hypertension (CMS/HCC) Expected: 03/16/2024 (Approximate), Expires: 01/03/2025 [facility] Comment on above: Expected: 03/16/2024 (Approximate), Expi res: 01/03/2025 Start: 12-16-2023 Influenza vaccination Influenza Vaccine (#1) [facility] Start: 06-01-2023 End: 06-01-2023 Patient encounter procedure 06/01/2023 10:00 AM EST Office Visit [facility] [address] [facility] [address] [place] [id number] Flaco Resendiz MD [address] [facility] [address] [place] [address] [facility] Immunizations Immunization Date Immunization Notes Care Provider Fa cility 05-18-2023 zoster vaccine recombinant Luz Resendiz MD Work Phone: [facility] 02-02-2023 Influenza, Seasonal, Quadrivalent, Adjuvanted Flaco Resendiz MD Work Phone: [facility] 02-02-2023 zoster vaccine recombinant Luz Resendiz MD Work Phone: [facility] 02-02-2023 influenza virus vacc ine, unspecified formulation Flaco Resendiz MD Work Phone: [facility] 01-13-2022 Influenza, High-dose Seasonal, Quadrivalent, Preservative Free Flaco Resendiz MD Work Phone: [facility] 01-29-2021 Influenza, High-dose Seasonal, Quadrivalent, Preservative Free Flaco Resendiz MD Work Phone: [facility] 02-28-2020 influenza, high dose seasonal, preservative-free Flaco Resendiz MD Work Phone: [facility] 02-28-2020 zoster vaccine recombinant D cailin Resendiz MD Work Phone: [facility] 01-12-2019 influenza, high dose seasonal, preservative-free Flaco Resendiz MD Work Phone: [facility] 12-07-2017 Influenza, High-dose Seasonal, Quadrivalent, Preservative Free Flaco Resendiz MD Work Phone: [facility] 12-18-2016 influenza, high dose seasonal, preservative-free Flaco Resendiz MD Work Phone: [facility] 03-22-2016 pneumococcal conjuga te vaccine, 13 valent Flaco Resendiz MD Work Phone: [facility] 03-15-2016 influenza, injectabl e, quadrivalent, preservative free Flaco Resendiz MD Work Phone: [facility] 02-15-2015 influenza, injectabl e, quadrivalent, preservative free Flaco Resendiz MD Work Phone: [facility] 04-30-2012 pneumococcal polysaccharide vaccine, 23 valent Flaco Resendiz MD Work Phone: [facility] 01-14-2010 seasonal influenza, intradermal, preservative free Flaco Resendiz MD Work Phone: [facility] Payers Date Payer Category Payer Medicare [id number] 1958 Medicare [id number] 1945 Unknown [id number] 2.16.84 [id number] 1945 Unknown [id number] 2.16.84 [id number] 1945 Unknown [id number] 2.16.84 [id number] 1946 Unknown [id number] 2.16.84 [id number] 1946 Unknown [id number] 2.16.84 [id number] 1946 Unknown [id number] 2.16.84 [id number] 1946 Unknown [id number] 2.16.84 [id number] 1946 Unknown [id number] 2.16.84 [id number] 1946 Unknown [id number] 2.16.84 [id number] 1946 Unknown [id number] 2.16.84 [id number] 1946 Unknown [id number] 2.16.84 [id number] Social History Date Type Detail Facility Start: 09-27-2022 Tobacco smoking status [facility] Ex-smoke r [facility] End: 09-25-2018 History of tobacco use Current smoker [facility] End: 09-25-2018 History of tobacco use Cigarette Smoker [facility] Start: 09-27-2022 End: 03-17-2024 Cigarettes smoked current (pack per day) - Reported 0.5 [facility] Start: 09-27-2022 Tobacco use and exposure Smoke less tobacco non-user [facility] Start: 03-02-2023 End: 04-11-2024 Alcohol intake Lifetime non-drinker (finding) [facility] Start: 01-01-2023 End: 03-17-2024 Humiliation, Afraid, Rape, and Kick questionnaire [HARK] [...] At Not on file [facility] History of Present illness Narrative 04-11-2024 Flaco Resendiz MD - 04/11/2024 11:00 AM EST Note Date & Type Note Facility 04-11-2024 History of Presen t illness Narrative Images from the original note were not included. HPI Results Additional comments: Lab results Med Refill Additional comments: Xanax-- [facility] Last edited by Sumaya Lo LPN on 04/11/2024 10:48 AM. Subjective Patient ID: Fiona Reece is a 78 y.o. female who presents for Results (Lab results), COPD, and Med Refill (Xanax-- [facility]). Hypertension Patient is here for follow-up of elevated blood pressure.Blood pressure is well controlled at home. Cardiac symptoms: none. Patient denies chest pain, claudication, irregular heart beat, lower extremity edema, near-syncope, orthopnea, palpitations, paroxysmal nocturnal dyspnea, and syncope. Cardiovascular risk factors: advanced age (older than 55 for men, 65 for women), hypertension, and sedentary lifestyle. COPD Patient complains : no current symptoms. Patient currently is on oxygen per nasal cannula.. Respiratory history: COPD. Med Refill Hypertension Current Outpatient Medications on File Prior to Visit Medication Sig Dispense Refill amLODIPine (Norvasc) 5 MG tablet TAKE ONE TABLET BY MOUTH DAILY 90 tablet 4 aspirin 81 MG EC tablet Take 81 mg by mouth in the morning. ibuprofen 200 MG tablet Take 200 mg by mouth every 6 (six) hours if needed. levothyroxine (Synthroid, Levoxyl) 88 MCG tablet Take 1 tablet (88 mcg) by mouth Daily 90 tablet 3 losartan (Cozaar) 50 MG tablet TAKE ONE TABLET BY MOUTH TWICE A DAY 200 tablet 3 Multiple Vitamin (multivitamin) capsule Take 1 capsule by mouth in the morning. OXYGEN-HELIUM IN Inhale 1 (one) time each day at the same time. polyethylene glycol, PEG, 3350 (MiraLax) 17 GM/SCOOP powder Take 17 g by mouth 1 (one) time. sodium chloride 1 g tablet Take 1 tablet (1 g) by mouth Daily 100 tablet 3 [DISCONTINUED] ALPRAZolam (Xanax) 0.5 MG tablet Take 1 tablet (0.5 mg) by mouth 3 (three) times a day as needed for anxiety Do not start before August 27, 2023. 90 tablet 3 albuterol (2.5 MG/3ML) 0.083% nebulizer solution Take 3 mL (2.5 mg) by nebulization every 6 (six) hours if needed for wheezing or shortness of breath 75 mL 3 albuterol HFA 90 mcg/act inhaler Inhale 2 puffs every 6 (six) hours if needed for wheezing or shortness of breath 18 g 3 Jqgryljunao-Qzydmsjns-Mvzhwx (Trelegy Ellipta) 100-62.5-25 MCG/ACT aerosol powder Inhale 1 puff 1 (one) time each day at the same time 3 each 3 No current facility-administered medications on file prior to visit. I have reviewed and reconciled the history and medication list with the patient today. Allergies Allergen Reactions Gentamicin Unknown Social History Tobacco Use Smoking status: Former Current packs/day: 0.00 Types: Cigarettes Quit date: 09/25/2018 Years since quittin.5 Smokeless tobacco: Never Substance Use Topics Alcohol use: Never No family history on file. Past Medical History: Diagnosis Date Anxiety Atypical depressive disease (CMS/HCC) Chronic airflow obstruction (CMS/HCC) COPD (chronic obstructive pulmonary disease) (CMS/HCC) Depression (CMS/HCC) Hypercholesterolemia (CMS/HCC) Meniere's disease, cochlear Osteoporosis (CMS/HCC) Thyroid disease (CMS/HCC) Vitamin D deficiency Past Surgical History: Procedure Laterality Date BREAST BIOPSY 1969 SECTION, LOW TRANSVERSE 1988 COMP PFT 2007 COPD THYROIDECTOMY 1998 Visit Vitals BP 138/73 Pulse 72 Ht 5' 2 Wt 142 lb 12.8 oz SpO2 98% BMI 26.12 kg/m Smoking Status Former BSA 1.68 m Review of Systems Objective Physical Exam Constitutional: Appearance: Normal appearance. Pulmonary: Effort: Prolonged expiration present. Neurological: Mental Status: She is alert. Psychiatric: Mood and Affect: Mood normal. Behavior: Behavior normal. Thought Content: Thought content normal. Judgment: Judgment normal. Clinisync Result Encounter on 03/21/2024 Component Date Value Ref Range Status [facility] WBC 03/21/2024 5.2 4.0 - 11.0 10 3/uL Final [facility] RBC 03/21/2024 4.07 (L) 4.20 - 5.40 10 6/uL Final [facility] HGB 03/21/2024 12.1 12.0 - 16.0 g/dL Final [facility] HCT 03/21/2024 37.3 36.0 - 48.0 % Final [facility] MCV 03/21/2024 91.6 81.0 - 99.0 fL Final [facility] MCH 03/21/2024 29.7 26.7 - 34.0 pg Final [facility] MCHC 03/21/2024 32.4 29.9 - 35.2 g/dL Final [facility] RDW 03/21/2024 12.8 11.0 - 15.0 % Final [facility] PLT 03/21/2024 399 150 - 450 10 3/uL Final [facility] MPV 03/21/2024 8.7 (L) 9.5 - 13.5 fL Final NEUTROPHILS PERCENT AUTO 03/21/2024 49.3 43.0 - 75.0 % Final LYMPHOCYTES PERCENT AUTO 03/21/2024 36.3 20.5 - 60.0 % Final MONOCYTES PERCENT AUTO 03/21/2024 11.1 1.7 - 12.0 % Final [facility] EO % 03/21/2024 2.5 0.9 - 7.0 % Final BASOPHILS PERCENT AUTO 03/21/2024 0.6 0.2 - 2.0 % Final IMMATURE GRANULOCYTES PCT AUTO 03/21/2024 0.2 0.0 - 0.5 % Final NEUTROPHILS ABSOLUTE AUTO 03/21/2024 2.6 1.4 - 6.5 10 3/uL Final LYMPHOCYTES ABSOLUTE AUTO 03/21/2024 1.9 1.2 - 3.8 10 3/uL Final MONOCYTES ABSOLUTE AUTO 03/21/2024 0.6 0.3 - 0.8 10 3/uL Final [facility] EO # 03/21/2024 0.1 0.0 - 0.7 10 3/uL Final BASOPHILS ABSOLUTE AUTO 03/21/2024 0.0 0.0 - 0.1 10 3/uL Final IMMATURE GRANULOCYTES ABS AUTO 03/21/2024 0.01 0.00 - 0.03 10 3/uL Final SODIUM 03/21/2024 135 (L) 136 - 145 mmol/L Final POTASSIUM 03/21/2024 4.5 3.5 - 5.1 mmol/L Final CHLORIDE 03/21/2024 99 98 - 107 mmol/L Final CARBON DIOXIDE 03/21/2024 33.3 (H) 21.0 - 32.0 mmol/L Final ANION GAP 03/21/2024 7.2 Final GLUCOSE 03/21/2024 92 74 - 106 mg/dL Final BLOOD UREA NITROGEN 03/21/2024 16.0 7.0 - 18.0 mg/dL Final CREATININE 03/21/2024 0.63 0.55 - 1.02 mg/dL Final [facility] EGFR-AF ALBANIAN 03/21/2024 >60 >=60 mL/min/1.73m 2 Final [facility] EGFR-NON AF ALBANIAN 03/21/2024 >60 >=60 mL/min/1.73m 2 Final BUN CREATININE RATIO 03/21/2024 25.4 Final CALCIUM 03/21/2024 9.1 8.5 - 10.1 mg/dL Final BILIRUBIN TOTAL 03/21/2024 0.4 0.2 - 1.0 mg/dL Final ASPARTATE AMINO TRANSFERASE 03/21/2024 15 15 - 37 U/L Final ALANINE AMINOTRANSFERASE 03/21/2024 19 14 - 59 U/L Final ALKALINE PHOSPHATASE 03/21/2024 59 46 - 116 U/L Final TOTAL PROTEIN 03/21/2024 7.3 6.4 - 8.2 g/dL Final ALBUMIN LEVEL 03/21/2024 3.5 3.4 - 5.0 g/dL Final GLOBULIN 03/21/2024 3.8 g/dL Final ALBUMIN GLOBULIN RATIO 03/21/2024 0.9 Final Assessment/Plan Diagnoses and all orders for this visit: Panlobular emphysema (CMS/HCC) - Today's visit was a Telemedicine visit. Patient understands this limits the extent of exam possible and voiced consent for treatment through Telemedicine. This visit was conducted with audio and visual connection. Hyponatremia - Comprehensive metabolic panel; Future - CBC and differential; Future Pure hypercholesterolemia (CMS/HCC) - CBC and differential; Future - Lipid panel; Future Postablative hypothyroidism (CMS/HCC) - TSH W/REFLEX TO FT4; Future Generalized anxiety disorder (CMS/HCC) - ALPRAZolam (Xanax) 0.5 MG tablet; Take 1 tablet (0.5 mg) by mouth 3 (three) times a day as needed for anxiety Follow up in about 3 months (around 07/10/2024) for Televisit, Test/Lab Review. documented in this encounter [facility] History of Present illness Narrative 01-04-2024 Flaco Resendiz MD - 01/04/2024 10:00 AM EDT Note Date & Type Note Facility 01-04-2024 History of Presen t illness Narrative HPI Results Additional comments: Lab Last edited by Sumaya Lo LPN on 01/04/2024 9:25 AM. Subjective Patient ID: Fiona Reece is a 78 y.o. female who presents for COPD, Hypertension, and Results (Lab ). Hypertension Patient is here for follow-up of elevated blood pressure.Blood pressure is well controlled at home. Cardiac symptoms: none. Patient denies chest pain, claudication, irregular heart beat, lower extremity edema, near-syncope, orthopnea, palpitations, paroxysmal nocturnal dyspnea, and syncope. Cardiovascular risk factors: advanced age (older than 55 for men, 65 for women), hypertension, and sedentary lifestyle. COPD Patient complains : no current symptoms. Patient currently is on oxygen per nasal cannula.. Respiratory history: COPD. Hypertension Med Refill Current Outpatient Medications on File Prior to Visit Medication Sig Dispense Refill albuterol (2.5 MG/3ML) 0.083% nebulizer solution Take 3 mL (2.5 mg) by nebulization every 6 (six) hours if needed for wheezing or shortness of breath 75 mL 3 albuterol HFA 90 mcg/act inhaler Inhale 2 puffs every 6 (six) hours if needed for wheezing or shortness of breath 18 g 3 ALPRAZolam (Xanax) 0.5 MG tablet Take 1 tablet (0.5 mg) by mouth 3 (three) times a day as needed for anxiety Do not start before August 27, 2023. 90 tablet 3 amLODIPine (Norvasc) 5 MG tablet TAKE ONE TABLET BY MOUTH DAILY 90 tablet 4 aspirin 81 MG EC tablet Take 81 mg by mouth in the morning. ibuprofen 200 MG tablet Take 200 mg by mouth every 6 (six) hours if needed. levothyroxine (Synthroid, Levoxyl) 88 MCG tablet Take 1 tablet (88 mcg) by mouth Daily 90 tablet 3 losartan (Cozaar) 50 MG tablet TAKE ONE TABLET BY MOUTH TWICE A DAY 200 tablet 3 Multiple Vitamin (multivitamin) capsule Take 1 capsule by mouth in the morning. OXYGEN-HELIUM IN Inhale 1 (one) time each day at the same time. polyethylene glycol, PEG, 3350 (MiraLax) 17 GM/SCOOP powder Take 17 g by mouth 1 (one) time. sodium chloride 1 g tablet Take 1 tablet (1 g) by mouth Daily 100 tablet 3 Icbsllnzzvl-Pubvelxva-Yhwwyk (Trelegy Ellipta) 100-62.5-25 MCG/ACT aerosol powder Inhale 1 puff 1 (one) time each day at the same time 3 each 3 No current facility-administered medications on file prior to visit. I have reviewed and reconciled the history and medication list with the patient today. Allergies Allergen Reactions Gentamicin Unknown Social History Tobacco Use Smoking status: Former Current packs/day: 0.00 Types: Cigarettes Quit date: 09/25/2018 Years since quittin.2 Smokeless tobacco: Never Substance Use Topics Alcohol use: Never No family history on file. Past Medical History: Diagnosis Date Anxiety Atypical depressive disease (CMS/HCC) Chronic airflow obstruction (CMS/HCC) COPD (chronic obstructive pulmonary disease) (CMS/HCC) Depression (CMS/HCC) Hypercholesterolemia (CMS/HCC) Meniere's disease, cochlear Osteoporosis (CMS/HCC) Thyroid disease (CMS/HCC) Vitamin D deficiency Past Surgical History: Procedure Laterality Date BREAST BIOPSY 1969 SECTION, LOW TRANSVERSE 1988 COMP PFT 2007 COPD THYROIDECTOMY 1997 Visit Vitals BP 135/76 Ht 5' 2 Wt 142 lb BMI 25.97 kg/m Smoking Status Former BSA 1.68 m Review of Systems Objective Physical Exam Constitutional: Appearance: Normal appearance. Pulmonary: Effort: Prolonged expiration present. Neurological: Mental Status: She is alert. Psychiatric: Mood and Affect: Mood normal. Behavior: Behavior normal. Thought Content: Thought content normal. Judgment: Judgment normal. Clinisync Result Encounter on 11/30/2023 Component Date Value Ref Range Status [facility] WBC 11/30/2023 4.9 4.0 - 11.0 10 3/uL Final [facility] RBC 11/30/2023 3.94 (L) 4.20 - 5.40 10 6/uL Final [facility] HGB 11/30/2023 11.4 (L) 12.0 - 16.0 g/dL Final [facility] HCT 11/30/2023 35.8 (L) 36.0 - 48.0 % Final [facility] MCV 11/30/2023 90.9 81.0 - 99.0 fL Final [facility] MCH 11/30/2023 28.9 26.7 - 34.0 pg Final [facility] MCHC 11/30/2023 31.8 29.9 - 35.2 g/dL Final [facility] RDW 11/30/2023 12.6 11.0 - 15.0 % Final [facility] PLT 11/30/2023 382 150 - 450 10 3/uL Final [facility] MPV 11/30/2023 8.7 (L) 9.5 - 13.5 fL Final NEUTROPHILS PERCENT AUTO 11/30/2023 51.1 43.0 - 75.0 % Final LYMPHOCYTES PERCENT AUTO 11/30/2023 34.3 20.5 - 60.0 % Final MONOCYTES PERCENT AUTO 11/30/2023 10.8 1.7 - 12.0 % Final [facility] EO % 11/30/2023 3.2 0.9 - 7.0 % Final BASOPHILS PERCENT AUTO 11/30/2023 0.4 0.2 - 2.0 % Final IMMATURE GRANULOCYTES PCT AUTO 11/30/2023 0.2 0.0 - 0.5 % Final NEUTROPHILS ABSOLUTE AUTO 11/30/2023 2.5 1.4 - 6.5 10 3/uL Final LYMPHOCYTES ABSOLUTE AUTO 11/30/2023 1.7 1.2 - 3.8 10 3/uL Final MONOCYTES ABSOLUTE AUTO 11/30/2023 0.5 0.3 - 0.8 10 3/uL Final [facility] EO # 11/30/2023 0.2 0.0 - 0.7 10 3/uL Final BASOPHILS ABSOLUTE AUTO 11/30/2023 0.0 0.0 - 0.1 10 3/uL Final IMMATURE GRANULOCYTES ABS AUTO 11/30/2023 0.01 0.00 - 0.03 10 3/uL Final SODIUM 11/30/2023 134 (L) 136 - 145 mmol/L Final POTASSIUM 11/30/2023 4.6 3.5 - 5.1 mmol/L Final CHLORIDE 11/30/2023 97 (L) 98 - 107 mmol/L Final CARBON DIOXIDE 11/30/2023 30.0 21.0 - 32.0 mmol/L Final ANION GAP 11/30/2023 11.6 Final GLUCOSE 11/30/2023 93 74 - 106 mg/dL Final BLOOD UREA NITROGEN 11/30/2023 19.0 (H) 7.0 - 18.0 mg/dL Final CREATININE 11/30/2023 0.64 0.55 - 1.02 mg/dL Final [facility] EGFR-AF ALBANIAN 11/30/2023 >60 >=60 Final [facility] EGFR-NON AF ALBANIAN 11/30/2023 >60 >=60 Final BUN CREATININE RATIO 11/30/2023 29.7 Final CALCIUM 11/30/2023 9.1 8.5 - 10.1 mg/dL Final BILIRUBIN TOTAL 11/30/2023 0.4 0.2 - 1.0 mg/dL Final ASPARTATE AMINO TRANSFERASE 11/30/2023 12 (L) 15 - 37 U/L Final ALANINE AMINOTRANSFERASE 11/30/2023 19 14 - 59 U/L Final ALKALINE PHOSPHATASE 11/30/2023 63 46 - 116 U/L Final TOTAL PROTEIN 11/30/2023 7.0 6.4 - 8.2 g/dL Final ALBUMIN LEVEL 11/30/2023 3.5 3.4 - 5.0 g/dL Final GLOBULIN 11/30/2023 3.5 g/dL Final ALBUMIN GLOBULIN RATIO 11/30/2023 1.0 Final TRIGLYCERIDES 11/30/2023 101 <=150 mg/dL Final CHOLESTEROL 11/30/2023 279 (H) <=200 mg/dL Final HDL CHOLESTEROL 11/30/2023 86 (H) 40 - 60 mg/dL Final Comment: > or =60 mg/dl - LOW CARDIOVASCULAR RISK <40 mg/dl - HIGH CARDIOVASCULAR RISK LDL CHOLESTEROL CALCULATED 11/30/2023 173.0 mg/dL Final Comment: <100 mg/dl OPTIMAL 100-129 mg/dl NEAR OR ABOVE OPTIMAL 130-159 mg/dl BORDERLINE HIGH 160-189 mg/dl HIGH >190 mg/dl VERY HIGH VLDL CHOLESTEROL 11/30/2023 20.2 mg/dL Final CHOL HDL RATIO 11/30/2023 3.2 Final Comment: 3.3 - 4.4 LOW RISK 4.4 - 7.1 AVERAGE RISK 7.1 - 11.0 MODERATE RISK >11.0 HIGH RISK THYROID STIMULATING HORMONE 11/30/2023 1.300 0.358 - 3.740 uIU/mL Final FREE T4 11/30/2023 1.29 0.76 - 1.46 ng/dL Final Assessment/Plan Diagnoses and all orders for this visit: Hyponatremia - Comprehensive metabolic panel; Future - Labs reviewed, improving. Panlobular emphysema (CMS/HCC) - CBC and differential; Future Essential hypertension (CMS/HCC) - CBC and differential; Future - Comprehensive metabolic panel; Future Acquired hypothyroidism (CMS/HCC) - CBC and differential; Future - Recent lab work for this condition was reviewed and discussed with the patient. Labs are at or near goal, no changes to medication are planned. Pure hypercholesterolemia (CMS/HCC) - No meds advised at this time. - Today's visit was a Telemedicine visit. Patient understands this limits the extent of exam possible and voiced consent for treatment through Telemedicine. This visit was conducted with audio and visual connection. Follow up in about 3 months (around 04/04/2024) for Televisit, Test/Lab Review. documented in this encounter [facility] Evaluation note Note Date & Type Note Facility Evaluation note Diagnosis Hyponatremia- Primary Hyposmolality and/or hyponatremia Panlobular emphysema (CMS/HCC) Other emphysema Essential hypertension (CMS/HCC) Unspecified essential hypertension Acquired hypothyroidism (CMS/HCC) Unspecified hypothyroidism Pure hypercholesterolemia (CMS/HCC) Pure hypercholesterolemia documented in this encounter [facility] Evaluation note Note Date & Type Note Facility Evaluation note Diagnosis Panlobular emphysema (CMS/HCC)- Primary Other emphysema Hyponatremia Hyposmolality and/or hyponatremia Pure hypercholesterolemia (CMS/HCC) Pure hypercholesterolemia Postablative hypothyroidism (CMS/HCC) Other postablative hypothyroidism Generalized anxiety disorder (CMS/HCC) Generalized anxiety disorder documented in this encounter [facility] Summary Purpose Family History No Family History Records FoundNo Family History Records Found Advance Directives No Advanced Directives Records FoundNo Advanced Directives Records Found Additional Source Comments INFORMATION SOURCE (unrecogn ized section and content) DATE CREATED AUTHOR 08/12/2022 [facility] DATE CREATED AUTHOR AUTHOR'S JOSE ATDWAYNE 04/12/2024 [facility] Care Teams (unrecognized sec tion and content) 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 Relationship Specialty Start Date End Date Flaco Resendiz MD [address] [place] [address] PCP - ACO Reach 09/07/22 Flaco Resendiz MD [address] [place] [address] PCP - General Internal Medicine 09/27/22 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 Relationship Specialty Start Date End Date Flaco Resendiz MD [address] [place] [address] PCP - ACO Reach 09/07/22 Flaco Resendiz MD [address] [place] [address] PCP - General Internal Medicine 09/27/22 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 Relationship Specialty Start Date End Date Flaco Resendiz MD [address] [place] [address] PCP - ACO Reach 09/07/22 Flaco Resendiz MD [address] [place] [address] PCP - General Internal Medicine 09/27/22 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 Relationship Specialty Start Date End Date Flaco Resendiz MD [address] [place] [address] PCP - ACO Reach 09/07/22 Flaco Resendiz MD [address] [facility] [address] [place] [address] PCP - General Internal Medicine 09/27/22 Reason for Visit (unrecogniz ed section and content) Reason Comments COPD Hypertension Results Lab Reason Comments Results Lab results COPD Med Refill Xanax-- [facility] [place] FOR RECORDS PERTAINING TO PATIENTS WHO ARE [...] BE BASED ON THE PRIMARY CLINICAL RECORDS. [email or web address] provides no warranty or guarantee of the accuracy or completeness of information in this document.
[2024-07-09 08:24] LABS: Basophils Percent Auto 0.5 % (0.2-2.0); Eosinophils Absolute Auto 0.1 10^3/uL (0.0-0.7); Eosinophils Percent Auto 1.8 % (0.9-7.0); Hematocrit 36.6 % (36.0-48.0); Hemoglobin 12.1 g/dL (12.0-16.0); Immature Granulocytes Abs Auto 0.01 10^3/uL (0.00-0.03); Immature Granulocytes Pct Auto 0.2 % (0.0-0.5); Lymphocytes Absolute Auto 1.9 10^3/uL (1.2-3.8); Lymphocytes Percent Auto 30.3 % (20.5-60.0); Mean Corpuscular HGB Conc 33.1 g/dL (29.9-35.2); Mean Corpuscular Hemoglobin 30.1 pg (26.7-34.0); Mean Platelet Volume 8.7 fL (9.5-13.5); Monocytes Absolute Auto 0.7 10^3/uL (0.3-0.8); Monocytes Percent Auto 11.2 % (1.7-12.0); Neutrophils Absolute Auto 3.4 10^3/uL (1.4-6.5); Platelet Count 423 10^3/uL (150-450); Red Blood Count 4.02 10^6/uL (4.20-5.40); Red Cell Distribution Width 12.5 % (11.0-15.0); White Blood Count 6.1 10^3/uL (4.0-11.0)
[2024-07-09 09:34] LABS: Alanine Aminotransferase 14 U/L (14-59); Albumin Globulin Ratio 0.9; Albumin Level 3.5 g/dL (3.4-5.0); Alkaline Phosphatase 63 U/L (46-116); Anion Gap 9.1; Aspartate Amino Transferase 11 U/L (15-37); BUN Creatinine Ratio 22.2; Bilirubin Total 0.5 mg/dL (0.2-1.0); Calcium 9.1 mg/dL (8.5-10.1); Carbon Dioxide 31.4 mmol/L (21.0-32.0); Chloride 98 mmol/L (98-107); Chol HDL Ratio 3.1; Cholesterol 263 mg/dL (<=200); Estimated GFR (African America >60 (>=60 mL/min/1.73m^2); Estimated GFR (Non-African Ame >60 (>=60 mL/min/1.73m^2); Globulin 3.8 g/dL; Glucose 97 mg/dL (74-106); HDL Cholesterol 85 mg/dL (40-60); Potassium 4.5 mmol/L (3.5-5.1); Sodium 134 mmol/L (136-145); TSH W/ REFLEX FT4 1.579 uIU/mL (0.358-3.740); Total Protein 7.3 g/dL (6.4-8.2); Triglycerides 103 mg/dL (<=150); VLDL CHOLESTEROL 20.6 mg/dL
== END 2024-07-09 08:03 | disposition home or self-care (01) ==
LOC: LAB 08:02
PROVIDERS: PCP Internal Medicine; Visit Provider Internal Medicine
DX: E87.1 Hypo-osmolality and hyponatremia (principal); E78.00 Pure hypercholesterolemia, unspecified; E89.0 Postprocedural hypothyroidism
CPT/HCPCS: 36415; 80053; 80061; 84443; 85025

== ENCOUNTER 2024-10-10 07:58 | Outpatient (OUT) | payer MEDICARE, SELFPAY ==
--- OUTSIDE RECORDS SUMMARY | 2024-10-10 08:02 | XMS_ITS | CCD ---
Author Organization [facility] Care Team Providers Care Industrial Training Specialist Name Role Phone MIRI ., DR OLENA [...] Consulting Unavailable LISSETTE, DR YI Attending Unavailable LISSETTE, DR YI Primary Care Unavailable [...] Attending Unavailable LISSETTE, DR YI Consulting Unavailable LSISETTE, DR YI Primary Care Unavailable LISSETTE, DR YI Admitting Unavailable LISSETTE, DR YI Attending Unavailable RESENDIZ, DR YI Consulting Unavailable LISSETTE, DR YI Primary Care Unavailable Flaco Resendiz MD Unavailable Flaco Resendiz MD Primary Care Provider [phone] Zoraida Tabares LPN Unavailable Unavailable FLACO RESENDIZ Attending Unavailable FLACO RESENDIZ Attending Unavailable FLACO RESENDIZ Attending Unavailable FLACO RESENDIZ Attending Unavailable Allergies Allergy Classification Reported Allergen(s) Allergy Type Date of Onset Reaction(s) Facility (8 sources) Gentamicin Drug Allergy 02-28-2021 Unknown [facility] Medications Current Medications Medication Drug Class(es) Dates Sig (Normalized) Sig (Original) albuterol 0.83 mg/ml inhalation solution (16 sources) beta2-Adrenergic Agonist Start: 12-21-2023 End: 03-20-2024 [...] 03/24/2022 Active ALPRAZolam 0.5 mg oral tablet (10 sources) Benzodiazepine Start: 04-11-2024 take 1 tablet [...] 05/07/2023 Active amLODIPine 5 mg oral tablet (8 sources) Dihydropyridine Calcium Channel Ramirez Start: 10-22-2023 [...] / vilanterol 0.025 mg/actuat dry powder inhaler (8 sources) Anticholinergic, Corticosteroid, beta2-Adrenergic Agonist Start: 024 take 1 puff(s) by inhalation once daily Fluticasone-Umecl idin-Vilant (Trelegy Ellipta) 100-62.5-25 MCG/ACT aerosol powder Indications: Panlobular emphysema (CMS/HCC) Inhale 1 puff 1 (one) time each day at the same time 3 each 3 08/01/2023 Active take 1 puff(s) by in halation once daily Rhjkxfdugjl-Xvflqyosq-Qjctas (Trelegy El lipta) 100-62.5-25 MCG/ACT aerosol powder Inhale 1 puff 1 (one) time each day at the same time. 0 Active ibuprofen 200 mg oral tablet (8 sources) Nonsteroidal Anti-inflammatory Drug take 1 tablet by mouth every six hours as needed ibuprofen 200 MG tablet Take 200 mg by mouth every 6 (six) hours if needed. Active levothyroxine sodium 0.088 mg oral tablet (8 sources) l-Thyroxine Start: 2023 End: 2024 take [...] Active losartan potassium 50 mg oral tablet (8 sources) Angiotensin 2 Receptor Ramirez Start: 04-18-2024 take 1 tablet by mouth twice daily losartan (Cozaar) 50 MG tablet Indications: Essential hypertension (CMS/HCC) TAKE ONE TABLET BY MOUTH TWICE A DAY 180 tablet 3 04/18/2024 Active Start: 04-05-2023 take 1 tablet by ravin th twice daily losartan (Cozaar) 50 MG tablet [...] 0 03/24/2022 Active Multiple Vitamin (multivitamin) capsule (8 sources) take 1 capsule by mouth in the morning Multiple Vitamin (multivitamin) capsule Take 1 capsule by mouth in the morning. Active take 1 capsule by mouth in the m orning Multiple Vitamin (multivitamin) capsule Take 1 capsule by mouth in the morning. 0 Active OXYGEN-HELIUM IN (8 sources) OXYGEN-HELIUM IN Inhale 1 (one) time each day at the same time. Active OXYGEN-HELIUM IN Inhale 1 (one) time each day at the same time. 0 Active polyethylene glycol 3350 78153 mg powder for oral solution (8 sources) Osmotic Laxative polyethylene gl ycol, PEG, 3350 (MiraLax) 17 GM/SCOOP powder Take 17 g by mouth 1 (one) time. Active sodium chloride 1000 mg oral tablet (8 sources) Start: 03-20-2023 End: 05-23-2025 take 1 tablet by mouth once daily sodium chloride 1 g tablet Indications: Hyponatremia Take 1 tablet (1 g) by mouth Daily 100 tablet 3 04/18/2024 05/23/2025 Active Problems Active Problems Problem Classification Problem Date Documented Da te Episodic/Chronic Adjustment disorders (8 sources) Grief finding; Translations: [Adjustment disorder with depressed mood] Onset: 10-25-2022 10-25-2022 Chronic Anxiety disorders (11 sources) Generalized anxiety disorder; Translations: [Generalized anxiety disorder] Onset: 09-07-2021 10-25-2022 Chronic Chronic obstructive pulmonary disease and bronchiectasis (20 sources) Chronic obstructive pulmonary disease, unspecified; Translations: [Chronic obstructive pulmonary disease with (acute) exacerbation] Onset: 09-07-2021 Resolved: 06-01-2023 10-25-2022 Chronic Complications of surgical procedures or medical care (12 sources) Postablative hypothyroidism; Translations: [Postprocedural hypothyroidism] Onset: 10-25-2022 10-25-2022 Chronic Conditions associated with dizziness or vertigo (8 sources) Active cochlear Meniere's disease; Translations: [Meniere's disease, unspecified ear] Onset: 10-25-2022 10-25-2022 Chronic Disorders of lipid metabolism (20 sources) Pure hypercholesterolemi a; Translations: [Pure hypercholesterolemi a, unspecified] Onset: 10-25-2022 10-25-2022 Chronic Essential hypertension (13 sources) Essential (primary) hypertension; Translations: [Essential hypertension] Onset: 09-07-2021 10-25-2022 Chronic Fluid and electrolyte disorders (19 sources) Hypo-osmolality and hyponatremia; Translations: [Hyponatremia] Onset: 09-07-2021 Episodic Miscellaneous mental health disorders (7 sources) Chronic insomnia; Translations: [Psychophysiologic insomnia] Onset: 06-01-2023 06-01-2023 Chronic Mood disorders (9 sources) Major depressive disorder, single episode, unspecified; Translations: [Atypical depressive disorder] Onset: 09-07-2021 10-25-2022 Chronic Nutritional deficiencies (8 sources) Vitamin D deficiency; Translations: [Vitamin D deficiency, unspecified] Onset: 10-25-2022 10-25-2022 Chronic Osteoarthritis (8 sources) Degenerative joint disease involving multiple joints; Translations: [Polyosteoarthritis , unspecified] Onset: 10-25-2022 10-25-2022 Chronic Osteoporosis (8 sources) Disuse osteoporosis; Translations: [Other osteoporosis without [...] Spondylosis; intervertebral disc disorders; other back problems (8 sources) Lumbar spondylosis; Translations: [Spondylosis without myelopathy or radiculopathy, lumbar region] Onset: 10-25-2022 10-25-2022 Chronic Substance-related disorders (16 sources) Nicotine dependence; Translations: [Nicotine dependence, cigarettes, uncomplicated] Onset: 10-25-2022 10-25-2022 Chronic Thyroid disorders (13 sources) Hypothyroidism, unspecified; Translations: [Acquired hypothyroidism] Onset: 09-07-2021 Resolved: 06-01-2023 10-25-2022 Chronic Viral infection (3 sources) COVID-19; Translations: [COVID-19] Onset: 08-31-2021 Past or Other Problems Problem Classification Problem Date Documented Date Episodic/Chronic Other aftercare (1 source) Other terminal gauger (current) drug therapy; Translations: [OTH CARE HOME CURRENT DRUG THERAPY] Onset: 09-07-2021 Episodic Other connective tissue disease (1 source) Muscle weakness (generalized); Translations: [MUSCLE WEAKNESS GENERALIZED] Onset: 09-07-2021 Episodic Other fractures (8 sources) Compression fracture of vertebral column; Translations: [Collapsed vertebra, not elsewhere classified, site unspecified, initial encounter for fracture] Onset: 10-25-2022 10-25-2022 Episodic Other nervous system disorders (8 sources) Abnormal gait; Translations: [Unspecified abnormalities of gait and mobility] Onset: 10-25-2022 10-25-2022 Episodic Respiratory failure; insufficiency; arrest (adult) (8 sources) Hypoxemic respiratory failure; Translations: [Respiratory failure, unspecified with hypoxia] Onset: 10-25-2022 10-25-2022 Episodic Results Test Name Value Interpretation Reference Range Facility ALL CBC WITH AUTO DIFFon BASOPHILS ABSOLUTE AUTO 0 [facility] Basophils/100 WBC (Bld) 0.6 % 0.2 - 2.0 % [facility] Eosinophils/100 WBC (Bld) 2.5 % 0.9 - 7.0 % [facility] Erythrocyte distribution width (RBC) [Ratio] 12.8 % 11.0 - 15.0 % [facility] Hematocrit (Bld) [Volume fraction] 37.3 % 36.0 - 48.0 % [facility] Hem[facility] (Bld) [Mass/Vol] 12.1 g/dL 12.0 - 16.0 g/dL [facility] IMMATURE GRANULOCYTES ABS AUTO 0.01 [facility] Immature granulocytes/100 WBC (Bld) 0.2 % 0.0 - 0.5 % [facility] Interpretation and review of laboratory results Abnormal [facility] LYMPHOCYTES ABSOLUTE AUTO 1.9 [facility] Lymphocytes/100 WBC (Bld) 36.3 % 20.5 - 60.0 % [facility] MCH (RBC) [Entitic mass] 29.7 pg 26.7 - 34.0 pg [facility] MCHC (RBC) [Mass/Vol] 32.4 g/dL 29.9 - 35.2 g/dL [facility] MCV (RBC) [Entitic vol] 91.6 fL 81.0 - 99.0 fL [facility] MONOCYTES ABSOLUTE AUTO 0.6 [facility] Monocytes/100 WBC (Bld) 11.1 % 1.7 - 12.0 % [facility] NEUTROPHILS ABSOLUTE AUTO 2.6 [facility] Neutrophils/100 WBC (Bld) 49.3 % 43.0 - 75.0 % [facility] Platelet mean volume (Bld) [Entitic vol] 8.7 fL Low 9.5 - 13.5 fL [facility] TBH EO # 0.1 [facility]H PLT [facility] TB RBC 4.07 Low [facility] TB WBC 5.2 [facility] ALL BASIC METABOLIC PANELon 05-18-2023 Anion gap [Moles/Vol] 9.7 mmol/L [facility] Calcium [Mass/Vol] 9.2 mg/dL 8.5 - 10. 1 mg/dL [facility] Chloride [Moles/Vol] 99 mmol/L 98 - 107 mmol/L [facility] CO2 [Moles/Vol] 31.4 mmol/L 21.0 - 32.0 mmol/L [facility] Creatinine [Mass/Vol] 0.63 mg/dL 0.55 - 1.02 mg/dL [facility] GFR/1.73 sq M.predicted CKD-EPI (S/P/Bld) [Vol rate/Area] >60 60 - PINF [facility] Glucose [Mass/Vol] 94 mg/dL 74 - 106 mg/dL [facility] Potassium [Moles/Vol] 4.1 mmol/L 3.5 - 5.1 mmol/L [facility] Sodium [Moles/Vol] 136 mmol/L 136 - 145 mmol/L [facility] TB EGFR-NON AF [place] >60 60 - PINF [facility] Urea nitrogen [Mass/Vol] 18.0 mg/dL 7.0 - 18.0 mg/dL [facility] Urea nitrogen/Creatinine [Mass ratio] 28.6 mg/mg [facility] PROF CHEM 8 (BAS METB)on Anion gap [Moles/Vol] 6.9 mmol/L Normal [facility] Comment on above: Performed By: #### B MP #### [facility] [address] [address] [address] Darlene Lucero Calcium [Mass/Vol] 9.1 mg/dL Normal 8.5-10.1 [facility] [place] Comment on above: Performed By: #### B MP #### [facility] [address] [address] [address] Darlene Lucero Chloride [Moles/Vol] 96 mmol/L Critically low 98-107 [facility] Comment on above: Performed By: #### B MP #### [facility] [address] [address] [address] Darlene Lucero CO2 [Moles/Vol] 33.6 mmol/L Critically high 21.0-32.0 [facility] Comment on above: Performed By: #### B MP #### [facility] [address] [address] [address] Darlene Lucero Creatinine [Mass/Vol] 0.69 mg/dL Normal 0.55-1.02 [facility] Comment on above: Performed By: #### B MP #### [facility] [address] [address] [address] Darlene Lucero EGFR-AF [place]ORE[place] >60 Normal >=60 [facility] Comment on above: Performed By: #### B MP #### [facility] [address] [place] [address] Dr. Darlene Lucero EGFR-NON AF [place] >60 Normal >=60 [facility] Comment on above: Performed By: #### B MP #### [facility] [address] [address] [address] Darlene Lucero Glucose [Mass/Vol] 92 mg/dL Normal 74-106 [facility] Comment on above: Performed By: #### B MP #### [facility] [address] [address] [address] Darlene Lucero Potassium [Moles/Vol] 4.5 mmol/L Normal 3.5-5.1 [facility] Comment on above: Performed By: #### B MP #### [facility] [address] [address] [address] Darlene Lucero Sodium [Moles/Vol] 132 mmol/L Critically low 136-145 Th [facility] Comment on above: Performed By: #### B MP #### [facility] [address] [place] [address] Dr. Darlene Lucero Urea nitrogen [Mass/Vol] 18.0 mg/dL Normal 7.0-18.0 [facility] Comment on above: Performed By: #### B MP #### [facility] [address] [place] [address] Dr. Darlene Lucero Urea nitrogen/Creatinine [Mass ratio] 26.1 mg/mg Normal [facility] Comment on above: Performed By: #### B MP #### [facility] [address] [place] [address] Dr. Darlene Lucero PROF CHEM 8 (BAS METB)on Anion gap [Moles/Vol] 7.1 mmol/L Normal [facility] Comment on above: Performed By: #### B MP #### [facility] [address] [address] [address] Darlene Lucero Calcium [Mass/Vol] 9.4 mg/dL Normal 8.5-10.1 [facility] Comment on above: Performed By: #### B MP #### [facility] [address] [place] [address] Dr. Darlene Lucero Chloride [Moles/Vol] 95 mmol/L Critically low 98-107 [facility] Comment on above: Performed By: #### B MP #### [facility] [address] [address] [address] Darlene Lucero CO2 [Moles/Vol] 34.3 mmol/L Critically high 21.0-32.0 [facility] Comment on above: Performed By: #### B MP #### [facility] [address] [place] [address] Dr. Darlene Lucero Creatinine [Mass/Vol] 0.52 mg/dL Critically low 0.55-1.02 [facility] Comment on above: Performed By: #### B MP #### [facility] [address] [place] [address] Dr. Darlene Lucero EGFR-AF [place] >60 Normal >=60 [facility] Comment on above: Performed By: #### B MP #### [facility] [address] [place] [address] Dr. Darlene Lucero EGFR-NON AF [place] >60 Normal >=60 [facility] Comment on above: Performed By: #### B MP #### [facility] [address] [place] [address] Dr. Darlene Lucero Glucose [Mass/Vol] 111 mg/dL Critically high 74-106 T [facility] Comment on above: Performed By: #### B MP #### [facility] [address] [address] [address] Darlene Lucero Potassium [Moles/Vol] 4.4 mmol/L Normal 3.5-5.1 [facility] Comment on above: Performed By: #### B MP #### [facility] [address] [address] [address] Darlene Lucero Sodium [Moles/Vol] 132 mmol/L Critically low 136-145 Th [facility] Comment on above: Performed By: #### B MP #### [facility] [address] [place] [address] Dr. Darlene Lucero Urea nitrogen [Mass/Vol] 16.0 mg/dL Normal 7.0-18.0 [facility] Comment on above: Performed By: #### B MP #### [facility] [address] [place] [address] Dr. Darlene Lucero Urea nitrogen/Creatinine [Mass ratio] 30.8 mg/mg Normal [facility] Comment on above: Performed By: #### B MP #### [facility] [address] [place] [address] Dr. Darlene Lucero PROF CHEM 8 (BAS METB)on Anion gap [Moles/Vol] 8.6 mmol/L Normal [facility] Comment on above: Performed By: #### O SMOU #### [facility] [address] [place] [address] Dr. Darlene Lucero Calcium [Mass/Vol] 9.3 mg/dL Normal 8.5-10.1 [facility] Comment on above: Performed By: #### O SMOU #### [facility] [address] [place] [address] Dr. Darlene Lucero Chloride [Moles/Vol] 94 mmol/L Critically low 98-107 [facility] Comment on above: Performed By: #### O SMOU #### [facility] [address] [place] [address] Dr. Darlene Lucero CO2 [Moles/Vol] 33.0 mmol/L Critically high 21.0-32.0 [facility] Comment on above: Performed By: #### O SMOU #### [facility] [address] [place] [address] Dr. Darlene Lucero Creatinine [Mass/Vol] 0.64 mg/dL Normal 0.55-1.02 [facility] Comment on above: Performed By: #### O SMOU #### [facility] [address] [address] [address] Darlene Lucero EGFR-AF [place] >60 Normal >=60 [facility] Comment on above: Performed By: #### O SMOU #### [facility] [address] [place] [address] Dr. Darlene Lucero EGFR-NON AF [place] >60 Normal >=60 [facility] Comment on above: Performed By: #### O SMOU #### [facility] [address] [place] [address] Dr. Darlene Lucero Glucose [Mass/Vol] 134 mg/dL Critically high 74-106 T [facility] Comment on above: Performed By: #### O SMOU #### [facility] [address] [place] [address] Dr. Darlene Lucero Potassium [Moles/Vol] 4.6 mmol/L Normal 3.5-5.1 [facility] Comment on above: Performed By: #### O SMOU #### [facility] [address] [place] [address] Dr. Darlene Lucero Sodium [Moles/Vol] 131 mmol/L Critically low 136-145 Th [facility] Comment on above: Performed By: #### O SMOU #### [facility] [address] [place] [address] Dr. Darlene Lucero Urea nitrogen [Mass/Vol] 10.0 mg/dL Normal 7.0-18.0 [facility] Comment on above: Performed By: #### O SMOU #### [facility] [address] [place] [address] Dr. Darlene Lucero Urea nitrogen/Creatinine [Mass ratio] 15.6 mg/mg Normal [facility] Comment on above: Performed By: #### O SMOU #### [facility] [address] [address] [address] Darlene Lucero PROF CHEM 8 (BAS METB)on Anion gap [Moles/Vol] 5.9 mmol/L Normal [facility] Comment on above: Performed By: #### B MP #### [facility] [address] [place] [address] Dr. Darlene Lucero Calcium [Mass/Vol] 9.0 mg/dL Normal 8.5-10.1 [facility] Comment on above: Performed By: #### B MP #### [facility] [address] [place] [address] Dr. Darlene Lucero Chloride [Moles/Vol] 96 mmol/L Critically low 98-107 [facility] Comment on above: Performed By: #### B MP #### [facility] [address] [place] [address] Dr. Darlene Lucero CO2 [Moles/Vol] 31.5 mmol/L Normal 21.0-32.0 [facility] Comment on above: Performed By: #### B MP #### [facility] [address] [place] [address] Dr. Darlene Lucero Creatinine [Mass/Vol] 0.57 mg/dL Normal 0.55-1.02 [facility] Comment on above: Performed By: #### B MP #### [facility] [address] [place] [address] Dr. Darlene Lucero EGFR-AF [place] >60 Normal >=[address] [facility] Comment on above: Performed By: #### B MP #### [facility] [address] [place] [address] Dr. Darlene Lucero EGFR-NON AF [place] >60 Normal >=60 [facility] Comment on above: Performed By: #### B MP #### [facility] [address] [place] [address] Dr. Darlene Lucero Glucose [Mass/Vol] 94 mg/dL Normal 74-106 [facility] Comment on above: Performed By: #### B MP #### [facility] [address] [address] [address] Darlene Lucero Potassium [Moles/Vol] 4.4 mmol/L Normal 3.5-5.1 [facility] Comment on above: Performed By: #### B MP #### [facility] [address] [address] [address] Darlene Lucero Sodium [Moles/Vol] 129 mmol/L Critically low 136-145 Th [facility] Comment on above: Performed By: #### B MP #### [facility] [address] [address] [address] Darlene Lucero Urea nitrogen [Mass/Vol] 18.0 mg/dL Normal 7.0-18.0 [facility] Comment on above: Performed By: #### B MP #### [facility] [address] [place] [address] Dr. Darlene Lucero Urea nitrogen/Creatinine [Mass ratio] 31.6 mg/mg Normal [facility] Comment on above: Performed By: #### B MP #### [facility] [address] [place] [address] Dr. Darlene Lucero PROF 14(COMP METB)on 022 Albumin [Mass/Vol] 3.4 g/dL Normal 3.4-5.0 [facility] Comment on above: Performed By: #### B MP #### [facility] [address] [address] [address] Darlene Lucero Albumin/Globulin [Mass ratio] 0.9 {ratio} Normal [facility] Comment on above: Performed By: #### B MP #### [facility] [address] [place] [address] Dr. Darlene Lucero ALP [Catalytic activity/Vol] 63 U/L Normal 46-116 [facility] Comment on above: Performed By: #### B MP #### [facility] [address] [address] [address] Darlene Lucero ALT [Catalytic activity/Vol] 16 U/L Normal 14-59 [facility] Comment on above: Performed By: #### B MP #### [facility] [address] [address] [address] Darlene Lucero Anion gap [Moles/Vol] 11.5 mmol/L Normal [facility] Comment on above: Performed By: #### B MP #### [facility] [address] [address] [address] Darlene Lucero AST [Catalytic activity/Vol] 12 U/L Critically low 15-37 [facility] Comment on above: Performed By: #### B MP #### [facility] [address] [address] [address] Darlene Lucero Bilirubin [Mass/Vol] 0.3 mg/dL Normal 0.2-1.0 [facility] Comment on above: Performed By: #### B MP #### [facility] [address] [address] [address] Darlnee Lucero Calcium [Mass/Vol] 8.9 mg/dL Normal 8.5-10.1 [facility] Comment on above: Performed By: #### B MP #### [facility] [address] [address] [address] Darlene Lucero Chloride [Moles/Vol] 96 mmol/L Critically low 98-107 [facility] Comment on above: Performed By: #### B MP #### [facility] [address] [address] [address] Darlene Lucero CO2 [Moles/Vol] 29.4 mmol/L Normal 21.0-32.[address] [facility] Comment on above: Performed By: #### B MP #### [facility] [address] [address] [address] Darlene Lucero Creatinine [Mass/Vol] 0.70 mg/dL Normal 0.55-1.02 [facility] Comment on above: Performed By: #### B MP #### [facility] [address] [place] [address] Dr. Darlene Lucero EGFR-AF [place] >60 Normal >=[address] [facility] Comment on above: Performed By: #### B MP #### [facility] [address] [address] [address] Darlene Lucero EGFR-NON AF [place] >60 Normal >=60 [facility] Comment on above: Performed By: #### B MP #### [facility] [address] [address] [address] Darlene Lucero Globulin (S) [Mass/Vol] 3.8 g/dL Normal [facility] Comment on above: Performed By: #### B MP #### [facility] [address] [address] [address] Darlene Lucero Glucose [Mass/Vol] 114 mg/dL Critically high 74-106 T [facility] Comment on above: Performed By: #### B MP #### [facility] [address] [address] [address] Darlene Lucero Potassium [Moles/Vol] 3.9 mmol/L Normal 3.5-5.1 [facility] Comment on above: Performed By: #### B MP #### [facility] [address] [address] [address] Darlene Lucero Protein [Mass/Vol] 7.2 g/dL Normal 6.4-8.2 [facility] Comment on above: Performed By: #### B MP #### [facility] [address] [place] [address] Dr. Darlene Lucero Sodium [Moles/Vol] 133 mmol/L Critically low 136-145 Th [facility] Comment on above: Performed By: #### B MP #### [facility] [address] [address] [address] Darlene Lucero Urea nitrogen [Mass/Vol] 19.0 mg/dL Critically high 7.0-18.0 [facility] Comment on above: Performed By: #### B MP #### [facility] [facility] [address] [place] [address] Dr. Darlene Lucero Urea nitrogen/Creatinine [Mass ratio] 27.1 mg/mg Normal [facility] Comment on above: Performed By: #### B MP #### [facility] [address] [place] [address] Dr. Darlene Lucero PROF 14(COMP METB)on 022 Albumin [Mass/Vol] 3.2 g/dL Critically low 3.4-5.0 Th e [facility] Comment on above: Performed By: #### B MP #### [facility] [address] [place] [address] Dr. Darlene Lucero Albumin/Globulin [Mass ratio] 0.9 {ratio} Normal [facility] Comment on above: Performed By: #### B MP #### [facility] [address] [address] [address] Darlene Lucero ALP [Catalytic activity/Vol] 60 U/L Normal 46-116 [facility] Comment on above: Performed By: #### B MP #### [facility] [address] [place] [address] Dr. Darlene Lucero ALT [Catalytic activity/Vol] 17 U/L Normal 14-59 [facility] Comment on above: Performed By: #### B MP #### [facility] [address] [place] [address] Dr. Darlene Lucero Anion gap [Moles/Vol] 8.0 mmol/L Normal [facility] Comment on above: Performed By: #### B MP #### [facility] [address] [place] [address] Dr. Darlene Lucero AST [Catalytic activity/Vol] 12 U/L Critically low 15-37 [facility] Comment on above: Performed By: #### B MP #### [facility] [address] [place] [address] Dr. Darlene Lucero Bilirubin [Mass/Vol] 0.4 mg/dL Normal 0.2-1.0 [facility] Comment on above: Performed By: #### B MP #### [facility] [address] [place] [address] Dr. Darlene Lucero Calcium [Mass/Vol] 9.4 mg/dL Normal 8.5-10.1 [facility] Comment on above: Performed By: #### B MP #### [facility] [address] [place] [address] Dr. Darlene Lucero Chloride [Moles/Vol] 96 mmol/L Critically low 98-107 [facility] Comment on above: Performed By: #### B MP #### [facility] [address] [address] [address] Darlene Lucero CO2 [Moles/Vol] 32.4 mmol/L Critically high 21.0-32.0 [facility] Comment on above: Performed By: #### B MP #### [facility] [address] [address] [address] Darlene Lucero Creatinine [Mass/Vol] 0.64 mg/dL Normal 0.55-1.02 [facility] Comment on above: Performed By: #### B MP #### [facility] [address] [address] [address] Darlene Lucero EGFR-AF [place]ORE[place] >60 Normal >=60 [facility] Comment on above: Performed By: #### B MP #### [facility] [address] [address] [address] Darlene Lucero EGFR-NON AF [place] >60 Normal >=60 [facility] Comment on above: Performed By: #### B MP #### [facility] [address] [address] [address] Darlene Lucero Globulin (S) [Mass/Vol] 3.7 g/dL Normal [facility] Comment on above: Performed By: #### B MP #### [facility] [address] [place] [address] Dr. Darlene Lucero Glucose [Mass/Vol] 63 mg/dL Critically low 74-106 [facility] Comment on above: Performed By: #### B MP #### [facility] [address] [address] [address] Darlene Lucero Potassium [Moles/Vol] 4.4 mmol/L Normal 3.5-5.1 [facility] Comment on above: Performed By: #### B MP #### [facility] [address] [address] [address] Darlene Lucero Protein [Mass/Vol] 6.9 g/dL Normal 6.4-8.2 [facility] Comment on above: Performed By: #### B MP #### [facility] [address] [address] [address] Darlene Lucero Sodium [Moles/Vol] 132 mmol/L Critically low 136-145 [facility] Comment on above: Performed By: #### B MP #### [facility] [address] [place] [address] Dr. Darlene Lucero Urea nitrogen [Mass/Vol] 16.0 mg/dL Normal 7.0-18.0 [facility] Comment on above: Performed By: #### B MP #### [facility] [address] [place] [address] Dr. Darlene Lucero Urea nitrogen/Creatinine [Mass ratio] 25.0 mg/mg Normal [facility] Comment on above: Performed By: #### B MP #### [facility] [address] [place] [address] Dr. Darlene Lucero OSMOLALITYon 09-07-2021 Osmolality [Osmolality] 268 mosm/kg Critically low 280-301 [facility] Comment on above: Performed By: #### U WILLEM #### [facility] [address] [place] [address] Dr. Darlene Lucero OSMOLALITY URINEon Osmolality, Urine 565 mOsmol/kg Normal [facility] Comment on above: Result Comment: 24 h r : 300 - 900 Random: 50 - 1400 After 12hr fluid restriction: >850 Performed By: #### B MP #### [facility] [address] [place] [address] Dr. Darlene Lucero CBC AUTO DIFFon 09-05-2021 BASO # 0.0 103/ul Normal 0.0-0.1 [facility] Comment on above: Performed By: #### B MP #### [facility] [address] [place] [address] Dr. Darlene Lucero Basophils/100 WBC (Bld) 0.3 % Normal 0.2-2.0 [facility] Comment on above: Performed By: #### B MP #### [facility] [address] [place] [address] Dr. Darlene Lucero EO # 0.0 103/ul Normal 0.0-0.7 [facility] Comment on above: Performed By: #### B MP #### [facility] [address] [place] [address] Dr. Darlene Lucero Eosinophils/100 WBC (Bld) 0.1 % Critically low 0.9-7.0 [facility] Comment on above: Performed By: #### B MP #### [facility] [address] [place] [address] Dr. Darlene Lucero Erythrocyte distribution width (RBC) [Ratio] 12.9 % Normal 11.0-15.0 [facility] Comment on above: Performed By: #### B MP #### [facility] [address] [place] [address] Dr. Darlene Lucero Hematocrit (Bld) [Volume fraction] 32.5 % Critically low 36.0-48.0 [facility] Comment on above: Performed By: #### B MP #### [facility] [address] [place] [address] Dr. Darlene Lucero Hemoglobin (Bld) [Mass/Vol] 10.5 g/dL Critically low 12.0-16.0 [facility] Comment on above: Performed By: #### B MP #### [facility] [address] [place] [address] Dr. Darlene Lucero IG # 0.11 10e3/ul Critically high 0.00-0.03 [facility] Comment on above: Performed By: #### B MP #### [facility] [address] [place] [address] Dr. Darlene Lucero IG % 1.6 % Critically high 0.0-0.5 [facility] Comment on above: Performed By: #### B MP #### [facility] [address] [place] [address] Dr. Darlene Lucero LYMPH # 1.5 103/ul Normal 1.2-3.8 [facility] Comment on above: Performed By: #### B MP #### [facility] [address] [place] [address] Dr. Darlene Lucero Lymphocytes/100 WBC (Bld) 22.4 % Normal 20.5-60.0 [facility] Comment on above: Performed By: #### B MP #### [facility] [address] [place] [address] Dr. Darlene Lucero MANUAL DIFF REQ NO Normal [facility] Comment on above: Performed By: #### B MP #### [facility] [address] [place] [address] Dr. Darlene Lucero MCH (RBC) [Entitic mass] 29.5 pg Normal 26.7-34.0 [facility] Comment on above: Performed By: #### B MP #### [facility] [address] [place] [address] Dr. Darlene Lucero MCHC (RBC) [Mass/Vol] 32.3 g/dL Normal 29.9-35.2 [facility] Comment on above: Performed By: #### B MP #### [facility] [address] [place] [address] Dr. Darlene Lucero MCV (RBC) [Entitic vol] 91.3 fL Normal 81.0-99.0 [facility] Comment on above: Performed By: #### B MP #### [facility] [address] [place] [address] Dr. Darlene Lucero MONO # 0.8 103/ul Normal 0.3-0.8 [facility] Comment on above: Performed By: #### B MP #### [facility] [address] [place] [address] Dr. Darlene Lucero Monocytes/100 WBC (Bld) 11.6 % Normal 1.7-12.0 [facility] Comment on above: Performed By: #### B MP #### [facility] [address] [place] [address] Dr. Darlene Lucero NEUT # 4.4 103/ul Normal 1.4-6.5 [facility] Comment on above: Performed By: #### B MP #### [facility] [address] [place] [address] Dr. Darlene Lucero Neutrophils/100 WBC (Bld) 64.0 % Normal 43.0-75.0 [facility] Comment on above: Performed By: #### B MP #### [facility] [address] [address] [address] Darlene Lucero Platelet mean volume (Bld) [Entitic vol] 8.1 fL Critically low 9.5-13.5 [facility] Comment on above: Performed By: #### B MP #### [facility] [address] [address] [address] Darlene Lucero PLT 571 103/ul Critically high 150-450 [facility] Comment on above: Performed By: #### B MP #### [facility] [address] [address] [address] Darlene Lucero RBC 3.56 106/ul Critically low 4.20-5.40 [facility] Comment on above: Performed By: #### B MP #### [facility] [address] [address] [address] Darlene Lucero WBC 6.9 103/ul Normal 4.0-11.0 [facility] Comment on above: Performed By: #### B MP #### [facility] [address] [address] [address] Darlene Lucero Covid-19 PCR ([facility])on 08-15 SARS-CoV-2 (COVID-19) RNA TASHA+probe Ql (Unsp spec) Detected Critically abnormal NOT DETECTED [facility] Comment on above: Result Comment: This test is not yet approved or cleared by the [place] FDA. When there are no FDA-approved or cleared tests available, and other criteria are met, FDA can make tests available under an emergency access mechanism called an Emergency Use Authorization (EUA). The EUA for this test is supported by the [place] of Health and Human Service's (HHS's) declaration [...] used). Performed By: #### B MP #### [facility] [address] [address] [address] Darlene Lucero PROF CHEM 8 (BAS METB)on Anion gap [Moles/Vol] 7.3 mmol/L Normal [facility] Comment on above: Performed By: #### B MP #### [facility] [address] [address] [address] Darlene Lucero Calcium [Mass/Vol] 8.5 mg/dL Normal 8.5-10.1 [facility] Comment on above: Performed By: #### B MP #### [facility] [address] [address] [address] Darlene Lucero Chloride [Moles/Vol] 101 mmol/L Normal 98-107 [facility] Comment on above: Performed By: #### B MP #### [facility] [address] [address] [address] Darlene Lucero CO2 [Moles/Vol] 31.6 mmol/L Normal 21.0-32.0 [facility] Comment on above: Performed By: #### B MP #### [facility] [address] [address] [address] Darlene Lucero Creatinine [Mass/Vol] 0.49 mg/dL Critically low 0.55-1.02 [facility] Comment on above: Performed By: #### B MP #### [facility] [address] [address] [address] Darlene Lucero EGFR-AF [place] >60 Normal >=[address] [facility] Comment on above: Performed By: #### B MP #### [facility] [address] [address] [address] Darlene Lucero EGFR-NON AF [place] >60 Normal >=60 [facility] Comment on above: Performed By: #### B MP #### [facility] [address] [address] [address] Darlene Lucero Glucose [Mass/Vol] 88 mg/dL Normal 74-106 [facility] Comment on above: Performed By: #### B MP #### [facility] [address] [address] [address] Darlene Lucero Potassium [Moles/Vol] 3.9 mmol/L Normal 3.5-5.1 [facility] Comment on above: Performed By: #### B MP #### [facility] [address] [address] [address] Darlene Lucero Sodium [Moles/Vol] 136 mmol/L Normal 136-145 [facility] Comment on above: Performed By: #### B MP #### [facility] [address] [place] [address] Dr. Darlene Lucero Urea nitrogen [Mass/Vol] 15.0 mg/dL Normal 7.0-18.0 [facility] Comment on above: Performed By: #### B MP #### [facility] [address] [place] [address] Dr. Darlene Lucero Urea nitrogen/Creatinine [Mass ratio] 30.6 mg/mg Normal [facility] Comment on above: Performed By: #### B MP #### [facility] [address] [place] [address] Dr. Darlene Lucero CBC AUTO DIFFon 09-04-2021 BASO # 0.0 103/ul Normal 0.0-0.1 [facility] Comment on above: Performed By: #### O SMOU #### [facility] [address] [place] [address] Dr. Darlene Lucero Basophils/100 WBC (Bld) 0.2 % Normal 0.2-2.0 [facility] Comment on above: Performed By: #### O SMOU #### [facility] [address] [place] [address] Dr. Darlene Lucero EO # 0.0 103/ul Normal 0.0-0.7 [facility] Comment on above: Performed By: #### O SMOU #### [facility] [address] [place] [address] Dr. Darlene Lucero Eosinophils/100 WBC (Bld) 0.0 % Critically low 0.9-7.0 [facility] Comment on above: Performed By: #### O SMOU #### [facility] [address] [place] [address] Dr. Darlene Lucero Erythrocyte distribution width (RBC) [Ratio] 12.7 % Normal 11.0-15.0 [facility] Comment on above: Performed By: #### O SMOU #### [facility] [address] [place] [address] Dr. Darlene Lucero Hematocrit (Bld) [Volume fraction] 32.0 % Critically low 36.0-48.0 [facility] Comment on above: Performed By: #### O SMOU #### [facility] [address] [place] [address] Dr. Darlene Lucero Hemoglobin (Bld) [Mass/Vol] 10.4 g/dL Critically low 12.0-16.0 [facility] Comment on above: Performed By: #### O SMOU #### [facility] [address] [place] [address] Dr. Darlene Lucero IG # 0.07 10e3/ul Critically high 0.00-0.03 [facility] Comment on above: Performed By: #### O SMOU #### [facility] [address] [place] [address] Dr. Darlene Lucero IG % 1.1 % Critically high 0.0-0.5 [facility] Comment on above: Performed By: #### O SMOU #### [facility] [address] [place] [address] Dr. Darlene Lucero LYMPH # 1.4 103/ul Normal 1.2-3.8 [facility] Comment on above: Performed By: #### O SMOU #### [facility] [address] [place] [address] Dr. Darlene Lucero Lymphocytes/100 WBC (Bld) 21.9 % Normal 20.5-60.0 [facility] Comment on above: Performed By: #### O SMOU #### [facility] [address] [place] [address] Dr. Darlene Lucero MANUAL DIFF REQ NO Normal [facility] Comment on above: Performed By: #### O SMOU #### [facility] [address] [place] [address] Dr. Darlene Luceor MCH (RBC) [Entitic mass] 29.4 pg Normal 26.7-34.0 [facility] Comment on above: Performed By: #### O SMOU #### [facility] [address] [place] [address] Dr. Darlene Lucero MCHC (RBC) [Mass/Vol] 32.5 g/dL Normal 29.9-35.2 [facility] Comment on above: Performed By: #### O SMOU #### [facility] [address] [place] [address] Dr. Darlene Lucero MCV (RBC) [Entitic vol] 90.4 fL Normal 81.0-99.0 [facility] Comment on above: Performed By: #### O SMOU #### [facility] [address] [place] [address] Dr. Darlene Lucero MONO # 0.8 103/ul Normal 0.3-0.8 [facility] Comment on above: Performed By: #### O SMOU #### [facility] [address] [place] [address] Dr. Darlene Lucero Monocytes/100 WBC (Bld) 12.6 % Critically high 1.7-12.0 [facility] Comment on above: Performed By: #### O SMOU #### [facility] [address] [place] [address] Dr. Darlene Lucero NEUT # 4.2 103/ul Normal 1.4-6.5 [facility] Comment on above: Performed By: #### O SMOU #### [facility] [address] [place] [address] Dr. Darlene Lucero Neutrophils/100 WBC (Bld) 64.2 % Normal 43.0-75.0 [facility] Comment on above: Performed By: #### O SMOU #### [facility] [address] [place] [address] Dr. Darlene Lucero Platelet mean volume (Bld) [Entitic vol] 8.0 fL Critically low 9.5-13.5 [facility] Comment on above: Performed By: #### O SMOU #### [facility] [address] [address] [address] Darlene Lucero PLT 524 103/ul Critically high 150-450 [facility] Comment on above: Performed By: #### O SMOU #### [facility] [address] [address] [address] Darlene Lucero RBC 3.54 106/ul Critically low 4.20-5.40 [facility] Comment on above: Performed By: #### O SMOU #### [facility] [address] [address] [address] Darlene Lucero WBC 6.5 103/ul Normal 4.0-11.0 [facility] Comment on above: Performed By: #### O SMOU #### [facility] [address] [address] [address] Darlene Lucero POINT OF CARE GLUCOSEon 08-15 Glucose [Mass/Vol] 120 mg/dL Critically high 74-106 [facility] Comment on above: Performed By: #### U WILLEM #### [facility] [address] [address] [address] Darlene Lucero Glucose [Mass/Vol] 129 mg/dL Critically high 74-106 [facility] Comment on above: Performed By: #### P OCGLUC #### [facility] [address] [address] [address] Darlene Lucero Glucose [Mass/Vol] 111 mg/dL Critically high 74-106 [facility] Comment on above: Performed By: #### B MP #### [facility] [address] [address] [address] Darlene Lucero Glucose [Mass/Vol] 89 mg/dL Normal 74-106 [facility] Comment on above: Performed By: #### B MP #### [facility] [address] [address] [address] Darlene Lucero PROF CHEM 8 (BAS METB)on Anion gap [Moles/Vol] 8.0 mmol/L Normal [facility] Comment on above: Performed By: #### B MP #### [facility] [address] [address] [address] Darlene Lucero Calcium [Mass/Vol] 8.6 mg/dL Normal 8.5-10.1 [facility] Comment on above: Performed By: #### B MP #### [facility] [address] [address] [address] Darlene Lucero Chloride [Moles/Vol] 97 mmol/L Critically low 98-107 [facility] Comment on above: Performed By: #### B MP #### [facility] [address] [address] [address] Darlene Lucero CO2 [Moles/Vol] 31.6 mmol/L Normal 21.0-32.[address] [facility] Comment on above: Performed By: #### B MP #### [facility] [address] [address] [address] Darlene Lucero Creatinine [Mass/Vol] 0.63 mg/dL Normal 0.55-1.02 [facility] Comment on above: Performed By: #### B MP #### [facility] [address] [address] [address] Darlene Lucero EGFR-AF [place] >60 Normal >=[address] [facility] Comment on above: Performed By: #### B MP #### [facility] [address] [address] [address] Darlene Lucero EGFR-NON AF [place] >60 Normal >=60 [facility] Comment on above: Performed By: #### B MP #### [facility] [address] [address] [address] Darlene Lucero Glucose [Mass/Vol] 96 mg/dL Normal 74-106 [facility] Comment on above: Performed By: #### B MP #### [facility] [address] [address] [address] Darlene Lucero Potassium [Moles/Vol] 3.6 mmol/L Normal 3.5-5.1 [facility] Comment on above: Performed By: #### B MP #### [facility] [address] [place] [address] Dr. Darlene Lucero Sodium [Moles/Vol] 133 mmol/L Critically low 136-145 [facility] Comment on above: Performed By: #### B MP #### [facility] [address] [place] [address] Dr. Darlene Lucero Urea nitrogen [Mass/Vol] 18.0 mg/dL Normal 7.0-18.0 [facility] Comment on above: Performed By: #### B MP #### [facility] [address] [place] [address] Dr. Darlene Lucero Urea nitrogen/Creatinine [Mass ratio] 28.6 mg/mg Normal [facility] Comment on above: Performed By: #### B MP #### [facility] [address] [place] [address] Dr. Darlene Lucero CBC AUTO DIFFon 09-03-2021 BASO # 0.0 103/ul Normal 0.0-0.1 [facility] Comment on above: Performed By: #### B MP #### [facility] [address] [place] [address] Dr. Darlene Lucero Basophils/100 WBC (Bld) 0.0 % Critically low 0.2-2.0 [facility] Comment on above: Performed By: #### B MP #### [facility] [address] [place] [address] Dr. Darlene Lucero EO # 0.0 103/ul Normal 0.0-0.7 [facility] Comment on above: Performed By: #### B MP #### [facility] [address] [place] [address] Dr. Darlene Lucero Eosinophils/100 WBC (Bld) 0.0 % Critically low 0.9-7.0 [facility] Comment on above: Performed By: #### B MP #### [facility] [address] [place] [address] Dr. Darlene Lucero Erythrocyte distribution width (RBC) [Ratio] 12.3 % Normal 11.0-15.0 [facility] Comment on above: Performed By: #### B MP #### [facility] [address] [address] [address] Darlene Lucero Hematocrit (Bld) [Volume fraction] 32.1 % Critically low 36.0-48.0 [facility] Comment on above: Performed By: #### B MP #### [facility] [address] [place] [address] Dr. Darlene Lucero Hemoglobin (Bld) [Mass/Vol] 10.9 g/dL Critically low 12.0-16.0 [facility] Comment on above: Performed By: #### B MP #### [facility] [address] [place] [address] Dr. Darlene Lucero IG # 0.04 10e3/ul Critically high 0.00-0.03 [facility] Comment on above: Performed By: #### B MP #### [facility] [address] [place] [address] Dr. Darlene Lucero IG % 0.7 % Critically high 0.0-0.5 [facility] Comment on above: Performed By: #### B MP #### [facility] [address] [place] [address] Dr. Darlene Luceor LYMPH # 1.2 103/ul Normal 1.2-3.8 [facility] Comment on above: Performed By: #### B MP #### [facility] [address] [place] [address] Dr. Darlene Lucero Lymphocytes/100 WBC (Bld) 21.3 % Normal 20.5-60.0 [facility] Comment on above: Performed By: #### B MP #### [facility] [facility] [address] [place] [address] Dr. Darlene Lucero MANUAL DIFF REQ NO Normal [facility] Comment on above: Performed By: #### B MP #### [facility] [address] [place] [address] Dr. Darlene Lucero MCH (RBC) [Entitic mass] 29.9 pg Normal 26.7-34.0 [facility] Comment on above: Performed By: #### B MP #### [facility] [address] [place] [address] Dr. Darlene Lucero MCHC (RBC) [Mass/Vol] 34.0 g/dL Normal 29.9-35.2 [facility] Comment on above: Performed By: #### B MP #### [facility] [address] [place] [address] Dr. Darlene Lucero MCV (RBC) [Entitic vol] 87.9 fL Normal 81.0-99.0 [facility] Comment on above: Performed By: #### B MP #### [facility] [address] [place] [address] Dr. Darlene Lucero MONO # 1.0 103/ul Critically high 0.3-0.8 [facility] Comment on above: Performed By: #### B MP #### [facility] [address] [place] [address] Dr. Darlene Lucero Monocytes/100 WBC (Bld) 17.2 % Critically high 1.7-12.0 [facility] Comment on above: Performed By: #### B MP #### [facility] [address] [place] [address] Dr. Darlene Lucero NEUT # 3.5 103/ul Normal 1.4-6.5 [facility] Comment on above: Performed By: #### B MP #### [facility] [address] [place] [address] Dr. Darlene Lucero Neutrophils/100 WBC (Bld) 60.8 % Normal 43.0-75.0 [facility] Comment on above: Performed By: #### B MP #### [facility] [address] [place] [address] Dr. Darlene Lucero Platelet mean volume (Bld) [Entitic vol] 8.1 fL Critically low 9.5-13.5 [facility] Comment on above: Performed By: #### B MP #### [facility] [address] [place] [address] Dr. Darlene Lucero PLT 499 103/ul Critically high 150-450 [facility] Comment on above: Performed By: #### B MP #### [facility] [address] [place] [address] Dr. Darlene Lucero RBC 3.65 106/ul Critically low 4.20-5.40 [facility] Comment on above: Performed By: #### B MP #### [facility] [address] [place] [address] Dr. Darlene Lucero WBC 5.8 103/ul Normal 4.0-11.0 [facility] Comment on above: Performed By: #### B MP #### [facility] [address] [place] [address] Dr. Darlene Lucero [facility]15 SARS-CoV-2 (COVID-19) RNA TASHA+probe Ql (Unsp spec) Detected Critically abnormal NOT DETECTED [facility] Comment on above: Result Comment: This test is not yet approved or cleared by the [place] FDA. When there are no FDA-approved or cleared tests available, and other criteria are met, FDA can make tests available under an emergency access mechanism called an Emergency Use Authorization (EUA). The EUA for this test is supported by the Gas Operation Manager of Health and Human Service's declaration that [...] used). Performed By: #### B MP #### [facility] [address] [place] [address] Dr. Darlene Lucero POINT OF CARE GLUCOSEon 08-15 Glucose [Mass/Vol] 131 mg/dL Critically high 74-106 [facility] Comment on above: Performed By: #### B MP #### [facility] [address] [place] [address] Dr. Darlene Lucero Glucose [Mass/Vol] 131 mg/dL Critically high 74-106 [facility] Comment on above: Performed By: #### B MP #### [facility] [address] [place] [address] Dr. Darlene Lucero PROF CHEM 8 (BAS METB)on Anion gap [Moles/Vol] 9.4 mmol/L Normal [facility] Comment on above: Performed By: #### B MP #### [facility] [address] [address] [address] Darlene Lucero Calcium [Mass/Vol] 8.6 mg/dL Normal 8.5-10.1 [facility] Comment on above: Performed By: #### B MP #### [facility] [address] [address] [address] Darlene Lucero Chloride [Moles/Vol] 97 mmol/L Critically low 98-107 [facility] Comment on above: Performed By: #### B MP #### [facility] [address] [address] [address] Darlene Lucero CO2 [Moles/Vol] 28.6 mmol/L Normal 21.0-32.0 [facility] Comment on above: Performed By: #### B MP #### [facility] [address] [address] [address] Darlene Lucero Creatinine [Mass/Vol] 0.73 mg/dL Normal 0.55-1.02 [facility] Comment on above: Performed By: #### B MP #### [facility] [address] [place] [address] Dr. Darlene Lucero EGFR-AF [place]ORE[place] >60 Normal >=[address] [facility] Comment on above: Performed By: #### B MP #### [facility] [address] [address] [address] Darlene Lucero EGFR-NON AF [place] >60 Normal >=60 [facility] Comment on above: Performed By: #### B MP #### [facility] [address] [address] [address] Darlene Lucero Glucose [Mass/Vol] 172 mg/dL Critically high 74-106 [facility] Comment on above: Performed By: #### B MP #### [facility] [address] [address] [address] Darlene Lucero Potassium [Moles/Vol] 4.0 mmol/L Normal 3.5-5.1 [facility] Comment on above: Performed By: #### B MP #### [facility] [address] [address] [address] Darlene Lucero Sodium [Moles/Vol] 131 mmol/L Critically low 136-145 [facility] Comment on above: Performed By: #### B MP #### [facility] [address] [address] [address] Darlene Lucero Urea nitrogen [Mass/Vol] 19.0 mg/dL Critically high 7.0-18.0 [facility] Comment on above: Performed By: #### B MP #### [facility] [address] [address] [address] Darlene Lucero Urea nitrogen/Creatinine [Mass ratio] 26.0 mg/mg Normal [facility] Comment on above: Performed By: #### B MP #### [facility] [address] [address] [address] Darlene Lucero Anion gap [Moles/Vol] 10.3 mmol/L Normal [facility] Comment on above: Performed By: #### B MP #### [facility] [address] [address] [address] Darlene Lucero Calcium [Mass/Vol] 8.4 mg/dL Critically low 8.5-10.1 [facility] Comment on above: Performed By: #### B MP #### [facility] [address] [address] [address] Darlene Lucero Chloride [Moles/Vol] 90 mmol/L Critically low 98-107 [facility] Comment on above: Performed By: #### B MP #### [facility] [address] [address] [address] Darlene Lucero CO2 [Moles/Vol] 28.0 mmol/L Normal 21.0-32.0 [facility] Comment on above: Performed By: #### B MP #### [facility] [address] [address] [address] Darlene Lucero Creatinine [Mass/Vol] 0.69 mg/dL Normal 0.55-1.02 [facility] Comment on above: Performed By: #### B MP #### [facility] [address] [address] [address] Darlene Lucero EGFR-AF [place] >60 Normal >=60 [facility] Comment on above: Performed By: #### B MP #### [facility] [address] [address] [address] Darlene Lucero EGFR-NON AF [place] >60 Normal >=60 [facility] Comment on above: Performed By: #### B MP #### [facility] [address] [address] [address] Darlene Luceor Glucose [Mass/Vol] 95 mg/dL Normal 74-106 [facility] Comment on above: Performed By: #### B MP #### [facility] [address] [address] [address] Darlene Lucero Potassium [Moles/Vol] 3.3 mmol/L Critically low 3.5-5.1 [facility] Comment on above: Performed By: #### B MP #### [facility] [address] [address] [address] Darlene Lucero Sodium [Moles/Vol] 125 mmol/L Critically low 136-145 [facility] Comment on above: Performed By: #### B MP #### [facility] [address] [address] [address] Darlene Lucero Urea nitrogen [Mass/Vol] 18.0 mg/dL Normal 7.0-18.0 [facility] Comment on above: Performed By: #### B MP #### [facility] [address] [address] [address] Darlene Lucero Urea nitrogen/Creatinine [Mass ratio] 26.1 mg/mg Normal [facility] Comment on above: Performed By: #### B MP #### [facility] [address] [address] [address] Darlene Lucero Anion gap [Moles/Vol] 9.0 mmol/L Normal [facility] Comment on above: Performed By: #### O SMOU #### [facility] [address] [address] [address] Darlene Lucero Calcium [Mass/Vol] 8.3 mg/dL Critically low 8.5-10.1 [facility] Comment on above: Performed By: #### O SMOU #### [facility] [address] [place] [address] Dr. Darlene Lucero Chloride [Moles/Vol] 92 mmol/L Critically low 98-107 [facility] Comment on above: Performed By: #### O SMOU #### [facility] [address] [address] [address] Darlene Lucero CO2 [Moles/Vol] 28.8 mmol/L Normal 21.0-32.0 [facility] Comment on above: Performed By: #### O SMOU #### [facility] [address] [place] [address] Dr. Darlene Lucero Creatinine [Mass/Vol] 0.65 mg/dL Normal 0.55-1.02 [facility] Comment on above: Performed By: #### O SMOU #### [facility] [address] [place] [address] Dr. Darlene Lucero EGFR-AF [place]ORE[place] >60 Normal >=60 [facility] Comment on above: Performed By: #### O SMOU #### [facility] [address] [place] [address] Dr. Darlene Lucero EGFR-NON AF [place] >60 Normal >=60 [facility] Comment on above: Performed By: #### O SMOU #### [facility] [address] [address] [address] Darlene Lucero Glucose [Mass/Vol] 89 mg/dL Normal 74-106 [facility] Comment on above: Performed By: #### O SMOU #### [facility] [address] [place] [address] Dr. Darlene Lucero Potassium [Moles/Vol] 3.8 mmol/L Normal 3.5-5.1 [facility] Comment on above: Performed By: #### O SMOU #### [facility] [address] [place] [address] Dr. Darlene Lucero Sodium [Moles/Vol] 126 mmol/L Critically low 136-145 [facility] Comment on above: Performed By: #### O SMOU #### [facility] [address] [address] [address] Darlene Lucero Urea nitrogen [Mass/Vol] 19.0 mg/dL Critically high 7.0-18.0 [facility] Comment on above: Performed By: #### O SMOU #### [facility] [address] [address] [address] Darlene Lucero Urea nitrogen/Creatinine [Mass ratio] 29.2 mg/mg Normal [facility] Comment on above: Performed By: #### O SMOU #### [facility] [address] [place] [address] Dr. Darlene Lucero Anion gap [Moles/Vol] 9.0 mmol/L Normal [facility] Comment on above: Performed By: #### O SMOU #### [facility] [address] [place] [address] Dr. Darlene Lucero Calcium [Mass/Vol] 8.2 mg/dL Critically low 8.5-10.1 [facility] Comment on above: Performed By: #### O SMOU #### [facility] [address] [place] [address] Dr. Darlene Lucero Chloride [Moles/Vol] 92 mmol/L Critically low 98-107 [facility] Comment on above: Performed By: #### O SMOU #### [facility] [address] [address] [address] Darlene Lucero CO2 [Moles/Vol] 26.8 mmol/L Normal 21.0-32.0 [facility] Comment on above: Performed By: #### O SMOU #### [facility] [address] [place] [address] Dr. Darlene Lucero Creatinine [Mass/Vol] 0.68 mg/dL Normal 0.55-1.02 [facility] Comment on above: Performed By: #### O SMOU #### [facility] [address] [place] [address] Dr. Darlene Lucero EGFR-AF [place] >60 Normal >=60 [facility] Comment on above: Performed By: #### O SMOU #### [facility] [address] [place] [address] Dr. Darlene Lucero EGFR-NON AF [place] >60 Normal >=60 [facility] Comment on above: Performed By: #### O SMOU #### [facility] [address] [place] [address] Dr. Darlene Lucero Glucose [Mass/Vol] 94 mg/dL Normal 74-106 [facility] Comment on above: Performed By: #### O SMOU #### [facility] [address] [place] [address] Dr. Darlene Lucero Potassium [Moles/Vol] 3.8 mmol/L Normal 3.5-5.1 [facility] Comment on above: Performed By: #### O SMOU #### [facility] [address] [place] [address] Dr. Darlene Lucero Sodium [Moles/Vol] 124 mmol/L Critically low 136-145 [facility] Comment on above: Result Comment: repe ated Performed By: #### O SMOU #### [facility] [address] [place] [address] Dr. Darlene Lucero Urea nitrogen [Mass/Vol] 20.0 mg/dL Critically high 7.0-18.0 [facility] Comment on above: Performed By: #### O SMOU #### [facility] [address] [place] [address] Dr. Darlene Lucero Urea nitrogen/Creatinine [Mass ratio] 29.4 mg/mg Normal [facility] Comment on above: Performed By: #### O SMOU #### [facility] [address] [place] [address] Dr. Darlene Lucero CBC AUTO DIFFon 09-02-2021 BASO # 0.0 103/ul Normal 0.0-0.1 [facility] Comment on above: Performed By: #### B MP #### [facility] [address] [place] [address] Dr. Darlene Lucero Basophils/100 WBC (Bld) 0.1 % Critically low 0.2-2.0 [facility] Comment on above: Performed By: #### B MP #### [facility] [address] [place] [address] Dr. Darlene Lucero EO # 0.0 103/ul Normal 0.0-0.7 [facility] Comment on above: Performed By: #### B MP #### [facility] [address] [place] [address] Dr. Darlene Lucero Eosinophils/100 WBC (Bld) 0.0 % Critically low 0.9-7.0 [facility] Comment on above: Performed By: #### B MP #### [facility] [address] [place] [address] Dr. Darlene Lucero Erythrocyte distribution width (RBC) [Ratio] 12.0 % Normal 11.0-15.0 [facility] Comment on above: Performed By: #### B MP #### [facility] [address] [place] [address] Dr. Darlene Lucero Hematocrit (Bld) [Volume fraction] 35.1 % Critically low 36.0-48.0 [facility] Comment on above: Performed By: #### B MP #### [facility] [address] [place] [address] Dr. Darlene Lucero Hemoglobin (Bld) [Mass/Vol] 11.9 g/dL Critically low 12.0-16.0 [facility] Comment on above: Performed By: #### B MP #### [facility] [address] [place] [address] Dr. Darlene Lucero IG # 0.04 10e3/ul Critically high 0.00-0.03 [facility] Comment on above: Performed By: #### B MP #### [facility] [address] [place] [address] Dr. Darlene Lucero IG % 0.4 % Normal 0.0-0.5 [facility] Comment on above: Performed By: #### B MP #### [facility] [address] [place] [address] Dr. Darlene Lucero LYMPH # 1.0 103/ul Critically low 1.2-3.8 [facility] Comment on above: Performed By: #### B MP #### [facility] [address] [place] [address] Dr. Darlene Lucero Lymphocytes/100 WBC (Bld) 10.6 % Critically low 20.5-60.0 [facility] Comment on above: Performed By: #### B MP #### [facility] [address] [place] [address] Dr. Darlene Lucero MANUAL DIFF REQ NO Normal [facility] Comment on above: Performed By: #### B MP #### [facility] [address] [place] [address] Dr. Darlene Lucero MCH (RBC) [Entitic mass] 29.4 pg Normal 26.7-34.0 [facility] Comment on above: Performed By: #### B MP #### [facility] [address] [place] [address] Dr. Darlene Lucero MCHC (RBC) [Mass/Vol] 33.9 g/dL Normal 29.9-35.2 [facility] Comment on above: Performed By: #### B MP #### [facility] [address] [place] [address] Dr. Darlene Lucero MCV (RBC) [Entitic vol] 86.7 fL Normal 81.0-99.0 [facility] Comment on above: Performed By: #### B MP #### [facility] [address] [place] [address] Dr. Darlene Lucero MONO # 1.1 103/ul Critically high 0.3-0.8 [facility] Comment on above: Performed By: #### B MP #### [facility] [address] [place] [address] Dr. Darlene Lucero Monocytes/100 WBC (Bld) 12.1 % Critically high 1.7-12.0 [facility] Comment on above: Performed By: #### B MP #### [facility] [address] [place] [address] Dr. Darlene Lucero NEUT # 6.9 103/ul Critically high 1.4-6.5 [facility] Comment on above: Performed By: #### B MP #### [facility] [address] [place] [address] Dr. Darlene Lucero Neutrophils/100 WBC (Bld) 76.8 % Critically high 43.0-75.0 [facility] Comment on above: Performed By: #### B MP #### [facility] [address] [place] [address] Dr. Darlene Lucero Platelet mean volume (Bld) [Entitic vol] 8.1 fL Critically low 9.5-13.5 [facility] Comment on above: Performed By: #### B MP #### [facility] [address] [place] [address] Dr. Darlene Lucero PLT 498 103/ul Critically high 150-450 [facility] Comment on above: Performed By: #### B MP #### [facility] [address] [place] [address] Dr. Darlene Lucero RBC 4.05 106/ul Critically low 4.20-5.40 [facility] Comment on above: Performed By: #### B MP #### [facility] [address] [place] [address] Dr. Darlene Lucero WBC 9.0 103/ul Normal 4.0-11.0 [facility] Comment on above: Performed By: #### B MP #### [facility] [address] [place] [address] Dr. Darlene Lucero OSMOLALITY URINEon 2 Osmolality, Urine 522 mOsmol/kg Normal [facility] Comment on above: Result Comment: 24 h r : 300 - 900 Random: 50 - 1400 After 12hr fluid restriction: >850 Performed By: #### O SMOU #### [facility] [address] [place] [address] Dr. Darlene Lucero POINT OF CARE GLUCOSEon 08-15 Glucose [Mass/Vol] 146 mg/dL Critically high 74-106 [facility] Comment on above: Performed By: #### O SMOU #### [facility] [address] [address] [address] Darlene Lucero Glucose [Mass/Vol] 151 mg/dL Critically high 74-106 [facility] Comment on above: Performed By: #### B MP #### [facility] [address] [address] [address] Darlene Lucero Glucose [Mass/Vol] 123 mg/dL Critically high 74-106 [facility] Comment on above: Performed By: #### B MP #### [facility] [address] [address] [address] Darlene Lucero Glucose [Mass/Vol] 153 mg/dL Critically high 74-106 [facility] Comment on above: Performed By: #### B MP #### [facility] [address] [place] [address] Dr. Darlene Lucero PROF CHEM 8 (BAS METB)on Anion gap [Moles/Vol] 10.1 mmol/L Normal [facility] Comment on above: Performed By: #### B MP #### [facility] [address] [place] [address] Dr. Darlene Lucero Calcium [Mass/Vol] 8.4 mg/dL Critically low 8.5-10.1 [facility] Comment on above: Performed By: #### B MP #### [facility] [address] [place] [address] Dr. Darlene Lucero Chloride [Moles/Vol] 90 mmol/L Critically low 98-107 [facility] Comment on above: Performed By: #### B MP #### [facility] [address] [place] [address] Dr. Darlene Lucero CO2 [Moles/Vol] 27.4 mmol/L Normal 21.0-32.0 [facility] Comment on above: Performed By: #### B MP #### [facility] [address] [place] [address] Dr. Darlene Lucero Creatinine [Mass/Vol] 0.82 mg/dL Normal 0.55-1.02 [facility] Comment on above: Performed By: #### B MP #### [facility] [address] [address] [address] Darlene Lucero EGFR-AF [place] >60 Normal >=60 [facility] Comment on above: Performed By: #### B MP #### [facility] [address] [address] [address] Darlene Lucero EGFR-NON AF [place] >60 Normal >=60 [facility] Comment on above: Performed By: #### B MP #### [facility] [address] [address] [address] Darlene Lucero Glucose [Mass/Vol] 120 mg/dL Critically high 74-106 [facility] Comment on above: Performed By: #### B MP #### [facility] [address] [place] [address] Dr. Darlene Lucero Potassium [Moles/Vol] 3.5 mmol/L Normal 3.5-5.1 [facility] Comment on above: Performed By: #### B MP #### [facility] [address] [address] [address] Darlene Lucero Sodium [Moles/Vol] 124 mmol/L Critically low 136-145 [facility] Comment on above: Result Comment: repe ated Performed By: #### B MP #### [facility] [address] [place] [address] Dr. Darlene Lucero Urea nitrogen [Mass/Vol] 20.0 mg/dL Critically high 7.0-18.0 [facility] Comment on above: Performed By: #### B MP #### [facility] [address] [address] [address] Darlene Lucero Urea nitrogen/Creatinine [Mass ratio] 24.4 mg/mg Normal [facility] Comment on above: Performed By: #### B MP #### [facility] [address] [place] [address] Dr. Darlene Lucero Anion gap [Moles/Vol] 11.7 mmol/L Normal [facility] Comment on above: Performed By: #### O SMOU #### [facility] [address] [address] [address] Darlene Lucero Calcium [Mass/Vol] 8.5 mg/dL Normal 8.5-10.1 [facility] Comment on above: Performed By: #### O SMOU #### [facility] [address] [address] [address] Darlene Lucero Chloride [Moles/Vol] 89 mmol/L Critically low 98-107 [facility] Comment on above: Performed By: #### O SMOU #### [facility] [address] [place] [address] Dr. Darlene Lucero CO2 [Moles/Vol] 25.2 mmol/L Normal 21.0-32.0 [facility] Comment on above: Performed By: #### O SMOU #### [facility] [address] [place] [address] Dr. Darlene Lucero Creatinine [Mass/Vol] 0.76 mg/dL Normal 0.55-1.02 [facility] Comment on above: Performed By: #### O SMOU #### [facility] [address] [place] [address] Dr. Darlene Lucero EGFR-AF [place] >60 Normal >=60 [facility] Comment on above: Performed By: #### O SMOU #### [facility] [address] [place] [address] Dr. Darlene Lucero EGFR-NON AF [place] >60 Normal >=60 [facility] Comment on above: Performed By: #### O SMOU #### [facility] [address] [place] [address] Dr. Darlene Lucero Glucose [Mass/Vol] 140 mg/dL Critically high 74-106 [facility] Comment on above: Performed By: #### O SMOU #### [facility] [address] [place] [address] Dr. Darlene Lucero Potassium [Moles/Vol] 3.9 mmol/L Normal 3.5-5.1 [facility] Comment on above: Performed By: #### O SMOU #### [facility] [address] [place] [address] Dr. Darlene Lucero Sodium [Moles/Vol] 122 mmol/L Critically low 136-145 [facility] Comment on above: Performed By: #### O SMOU #### [facility] [address] [address] [address] Darlene Lucero Urea nitrogen [Mass/Vol] 16.0 mg/dL Normal 7.0-18.0 [facility] Comment on above: Performed By: #### O SMOU #### [facility] [address] [address] [address] Darlene Lucero Urea nitrogen/Creatinine [Mass ratio] 21.1 mg/mg Normal [facility] Comment on above: Performed By: #### O SMOU #### [facility] [address] [address] [address] Darlene Lucero Anion gap [Moles/Vol] 9.2 mmol/L Normal [facility] Comment on above: Performed By: #### O SMOU #### [facility] [address] [address] [address] Darlene Lucero Calcium [Mass/Vol] 8.3 mg/dL Critically low 8.5-10.1 [facility] Comment on above: Performed By: #### O SMOU #### [facility] [address] [address] [address] Darlene Lucero Chloride [Moles/Vol] 88 mmol/L Critically low 98-107 [facility] Comment on above: Performed By: #### O SMOU #### [facility] [address] [address] [address] Darlene Lucero CO2 [Moles/Vol] 27.8 mmol/L Normal 21.0-32.0 [facility] Comment on above: Performed By: #### O SMOU #### [facility] [address] [address] [address] Darlene Lucero Creatinine [Mass/Vol] 0.78 mg/dL Normal 0.55-1.02 [facility] Comment on above: Performed By: #### O SMOU #### [facility] [address] [address] [address] Darlene Lucero EGFR-AF [place] >60 Normal >=60 [facility] Comment on above: Performed By: #### O SMOU #### [facility] [address] [place] [address] Dr. Darlene Lucero EGFR-NON AF [place] >60 Normal >=60 [facility] Comment on above: Performed By: #### O SMOU #### [facility] [address] [address] [address] Darlene Lucero Glucose [Mass/Vol] 148 mg/dL Critically high 74-106 T [facility] Comment on above: Performed By: #### O SMOU #### [facility] [address] [place] [address] Dr. Darlene Lucero Potassium [Moles/Vol] 4.0 mmol/L Normal 3.5-5.1 [facility] Comment on above: Performed By: #### O SMOU #### [facility] [address] [place] [address] Dr. Darlene Lucero Sodium [Moles/Vol] 122 mmol/L Critically low 136-145 [facility] Comment on above: Performed By: #### O SMOU #### [facility] [address] [place] [address] Dr. Darlene Lucero Urea nitrogen [Mass/Vol] 15.0 mg/dL Normal 7.0-18.0 [facility] Comment on above: Performed By: #### O SMOU #### [facility] [address] [place] [address] Dr. Darlene Lucero Urea nitrogen/Creatinine [Mass ratio] 19.2 mg/mg Normal [facility] Comment on above: Performed By: #### O SMOU #### [facility] [address] [place] [address] Dr. Darlene Lucero Anion gap [Moles/Vol] 9.1 mmol/L Normal [facility] Comment on above: Performed By: #### B MP #### [facility] [address] [place] [address] Dr. Darlene Lucero Calcium [Mass/Vol] 8.3 mg/dL Critically low 8.5-10.1 [facility] Comment on above: Performed By: #### B MP #### [facility] [address] [address] [address] Darlene Lucero Chloride [Moles/Vol] 86 mmol/L Critically low 98-107 [facility] Comment on above: Performed By: #### B MP #### [facility] [address] [address] [address] Darlene Lucero CO2 [Moles/Vol] 27.9 mmol/L Normal 21.0-32.0 [facility] Comment on above: Performed By: #### B MP #### [facility] [address] [address] [address] Darlene Lucero Creatinine [Mass/Vol] 0.78 mg/dL Normal 0.55-1.02 [facility] Comment on above: Performed By: #### B MP #### [facility] [address] [address] [address] Darlene Lucero EGFR-AF [place] >60 Normal >=60 [facility] Comment on above: Performed By: #### B MP #### [facility] [address] [address] [address] Darlene Lucero EGFR-NON AF [place] >60 Normal >=60 [facility] Comment on above: Performed By: #### B MP #### [facility] [address] [address] [address] Darlene Lucero Glucose [Mass/Vol] 106 mg/dL Normal 74-106 [facility] Comment on above: Performed By: #### B MP #### [facility] [address] [address] [address] Darlene Lucero Potassium [Moles/Vol] 4.0 mmol/L Normal 3.5-5.1 [facility] Comment on above: Performed By: #### B MP #### [facility] [address] [place] [address] Dr. Darlene Lucero Sodium [Moles/Vol] 119 mmol/L Critically low 136-145 [facility] Comment on above: Performed By: #### B MP #### [facility] [address] [place] [address] Dr. Darlene Lucero Urea nitrogen [Mass/Vol] 14.0 mg/dL Normal 7.0-18.0 [facility] Comment on above: Performed By: #### B MP #### [facility] [address] [place] [address] Dr. Darlene Lucero Urea nitrogen/Creatinine [Mass ratio] 17.9 mg/mg Normal [facility] Comment on above: Performed By: #### B MP #### [facility] [address] [address] [address] Darlene Lucero Anion gap [Moles/Vol] 11.7 mmol/L Normal [facility] Comment on above: Performed By: #### B MP #### [facility] [address] [place] [address] Dr. Darlene Lucero Calcium [Mass/Vol] 8.5 mg/dL Normal 8.5-10.1 [facility] Comment on above: Performed By: #### B MP #### [facility] [address] [place] [address] Dr. Darlene Lucero Chloride [Moles/Vol] 85 mmol/L Critically low 98-107 [facility] Comment on above: Performed By: #### B MP #### [facility] [address] [place] [address] Dr. Darlene Lucero CO2 [Moles/Vol] 25.9 mmol/L Normal 21.0-32.0 [facility] Comment on above: Performed By: #### B MP #### [facility] [address] [place] [address] Dr. Darlene Lucero Creatinine [Mass/Vol] 0.85 mg/dL Normal 0.55-1.02 [facility] Comment on above: Performed By: #### B MP #### [facility] [address] [place] [address] Dr. Darlene Lucero EGFR-AF [place] >60 Normal >=60 [facility] Comment on above: Performed By: #### B MP #### [facility] [address] [place] [address] Dr. Darlene Lucero EGFR-NON AF [place] >60 Normal >=60 [facility] Comment on above: Performed By: #### B MP #### [facility] [address] [address] [address] Darlene Lucero Glucose [Mass/Vol] 105 mg/dL Normal 74-106 [facility] Comment on above: Performed By: #### B MP #### [facility] [address] [address] [address] Darlene Lucero Potassium [Moles/Vol] 3.6 mmol/L Normal 3.5-5.1 [facility] Comment on above: Performed By: #### B MP #### [facility] [address] [address] [address] Darlene Lucero Sodium [Moles/Vol] 119 mmol/L Critically low 136-145 [facility] Comment on above: Result Comment: repe ated Performed By: #### B MP #### [facility] [address] [address] [address] Darlene Lucero Urea nitrogen [Mass/Vol] 13.0 mg/dL Normal 7.0-18.0 [facility] Comment on above: Performed By: #### B MP #### [facility] [address] [address] [address] Darlene Lucero Urea nitrogen/Creatinine [Mass ratio] 15.3 mg/mg Normal [facility] Comment on above: Performed By: #### B MP #### [facility] [address] [address] [address] Darlene Lucero Anion gap [Moles/Vol] 11.3 mmol/L [facility] Comment on above: Performed By: #### B MP #### [facility] [address] [address] [address] Darlene Lucero Calcium [Mass/Vol] 8.2 mg/dL Critically low 8.5-10.1 [facility] Comment on above: Performed By: #### B MP #### [facility] [address] [address] [address] Darlene Lucero Chloride [Moles/Vol] 85 mmol/L Critically low 98-107 [facility] Comment on above: Performed By: #### B MP #### [facility] [address] [address] [address] Darlene Lucero CO2 [Moles/Vol] 27.2 mmol/L Normal 21.0-32.0 [facility] Comment on above: Performed By: #### B MP #### [facility] [address] [address] [address] Darlene Lucero Creatinine [Mass/Vol] 0.89 mg/dL Normal 0.55-1.02 [facility] Comment on above: Performed By: #### B MP #### [facility] [address] [address] [address] Darlene Lucero EGFR-AF [place] >60 Normal >=60 [facility] Comment on above: Performed By: #### B MP #### [facility] [address] [address] [address] Darlene Lucero EGFR-NON AF [place] >60 Normal >=60 [facility] Comment on above: Performed By: #### B MP #### [facility] [address] [address] [address] Darlene Lucero Glucose [Mass/Vol] 105 mg/dL Normal 74-106 [facility] Comment on above: Performed By: #### B MP #### [facility] [address] [address] [address] Darlene Lucero Potassium [Moles/Vol] 3.5 mmol/L Normal 3.5-5.1 [facility] Comment on above: Performed By: #### B MP #### [facility] [address] [address] [address] Darlene Lucero Sodium [Moles/Vol] 120 mmol/L Critically low 136-145 [facility] Comment on above: Result Comment: repe ated Performed By: #### B MP #### [facility] [address] [address] [address] Darlene Lucero Urea nitrogen [Mass/Vol] 12.0 mg/dL Normal 7.0-18.0 [facility] Comment on above: Performed By: #### B MP #### [facility] [address] [address] [address] Darlene Lucero Urea nitrogen/Creatinine [Mass ratio] 13.5 mg/mg Normal [facility] Comment on above: Performed By: #### B MP #### [facility] [address] [place] [address] Dr. Darlene Lucero CBC AUTO DIFFon 09-01-2021 BASO # 0.0 103/ul Normal 0.0-0.1 [facility] Comment on above: Performed By: #### U WILLEM #### [facility] [address] [place] [address] Dr. Darlene Lucero Basophils/100 WBC (Bld) 0.1 % Critically low 0.2-2.0 [facility] Comment on above: Performed By: #### U WILLEM #### [facility] [address] [place] [address] Dr. Darlene Lucero EO # 0.0 103/ul Normal 0.0-0.7 [facility] Comment on above: Performed By: #### U WILLEM #### [facility] [address] [place] [address] Dr. Darlene Lucero Eosinophils/100 WBC (Bld) 0.0 % Critically low 0.9-7.0 [facility] Comment on above: Performed By: #### U WILLEM #### [facility] [address] [place] [address] Dr. Darlene Lucero Erythrocyte distribution width (RBC) [Ratio] 11.9 % Normal 11.0-15.0 [facility] Comment on above: Performed By: #### U WILLEM #### [facility] [address] [place] [address] Dr. Darlene Lucero Hematocrit (Bld) [Volume fraction] 36.0 % Normal 36.0-48.0 [facility] Comment on above: Performed By: #### U WILLEM #### [facility] [address] [place] [address] Dr. Darlene Lucero Hemoglobin (Bld) [Mass/Vol] 12.2 g/dL Normal 12.0-16.0 [facility] Comment on above: Performed By: #### U WILLEM #### [facility] [address] [address] [address] Darlene Lucero IG # 0.07 10e3/ul Critically high 0.00-0.03 [facility] Comment on above: Performed By: #### U WILLEM #### [facility] [address] [address] [address] Darlene Lucero IG % 0.6 % Critically high 0.0-0.5 [facility] Comment on above: Performed By: #### U WILLEM #### [facility] [address] [address] [address] Darlene Lucero LYMPH # 1.1 103/ul Critically low 1.2-3.8 [facility] Comment on above: Performed By: #### U WILLEM #### [facility] [address] [place] [address] Dr. Darlene Lucero Lymphocytes/100 WBC (Bld) 9.2 % Critically low 20.5-60.0 [facility] Comment on above: Performed By: #### U WILLEM #### [facility] [address] [address] [address] Darlene Lucero MANUAL DIFF REQ NO Normal [facility] Comment on above: Performed By: #### U WILLEM #### [facility] [address] [address] [address] Darlene Lucero MCH (RBC) [Entitic mass] 29.5 pg Normal 26.7-34.0 [facility] Comment on above: Performed By: #### U WILLEM #### [facility] [address] [address] [address] Darlene Lucero MCHC (RBC) [Mass/Vol] 33.9 g/dL Normal 29.9-35.2 [facility] Comment on above: Performed By: #### U WILLEM #### [facility] [address] [address] [address] Darlene Lucero MCV (RBC) [Entitic vol] 87.0 fL Normal 81.0-99.0 [facility] Comment on above: Performed By: #### U WILLEM #### [facility] [address] [address] [address] Darlene Lucero MONO # 1.4 103/ul Critically high 0.3-0.8 [facility] Comment on above: Performed By: #### U WILLEM #### [facility] [address] [address] [address] Darlene Lucero Monocytes/100 WBC (Bld) 11.6 % Normal 1.7-12.0 [facility] Comment on above: Performed By: #### U WILLEM #### [facility] [address] [address] [address] Darlene Lucero NEUT # 9.1 103/ul Critically high 1.4-6.5 [facility] Comment on above: Performed By: #### U WILLEM #### [facility] [address] [place] [address] Dr. Darlene Lucero Neutrophils/100 WBC (Bld) 78.5 % Critically high 43.0-75.0 [facility] Comment on above: Performed By: #### U WILLEM #### [facility] [address] [place] [address] Dr. Darlene Lucero Platelet mean volume (Bld) [Entitic vol] 7.9 fL Critically low 9.5-13.5 [facility] Comment on above: Performed By: #### U WILLEM #### [facility] [address] [place] [address] Dr. Darlene Lucero PLT 447 103/ul Normal 150-450 [facility] Comment on above: Performed By: #### U WILLEM #### [facility] [address] [address] [address] Darlene Lucero RBC 4.14 106/ul Critically low 4.20-5.40 [facility] Comment on above: Performed By: #### U WILLEM #### [facility] [address] [address] [address] Darlene Lucero WBC 11.6 103/ul Critically high 4.0-11.[address] [facility] Comment on above: Performed By: #### U WILLEM #### [facility] [address] [place] [address] Dr. Darlene Lucero Covid-19 PCR (CVDTB)on 08-14 SARS-CoV-2 (COVID-19) RNA TASHA+probe Ql (Unsp spec) Detected Critically abnormal NOT DETECTED [facility] Comment on above: Result Comment: This test is not yet approved or cleared by the [place] FDA. When there are no FDA-approved or cleared tests available, and other criteria are met, FDA can make tests available under an emergency access mechanism called an Emergency Use Authorization (EUA). The EUA for this test is supported by the Gas Operation Manager of Health and Human Service's (HHS's) declaration [...] used). Performed By: #### U WILLEM #### [facility] [address] [place] [address] Dr. Darlene Lucero PROF CHEM 8 (BAS METB)on Anion gap [Moles/Vol] 13.1 mmol/L Normal [facility] Comment on above: Performed By: #### B MP #### [facility] [address] [place] [address] Dr. Darlene Lucero Calcium [Mass/Vol] 8.4 mg/dL Critically low 8.5-10.1 [facility] Comment on above: Performed By: #### B MP #### [facility] [address] [place] [address] Dr. Darlene Lucero Chloride [Moles/Vol] 88 mmol/L Critically low 98-107 [facility] Comment on above: Performed By: #### B MP #### [facility] [address] [place] [address] Dr. Darlene Lucero CO2 [Moles/Vol] 24.0 mmol/L Normal 21.0-32.0 [facility] Comment on above: Performed By: #### B MP #### [facility] [address] [place], [place] [id number] Dr. Darlene Lucero Creatinine [Mass/Vol] 0.60 mg/dL Normal 0.55-1.02 [facility] Comment on above: Performed By: #### B MP #### [facility] [address] [place] [address] Dr. Darlene Lucero EGFR-AF [place] >60 Normal >=60 [facility] Comment on above: Performed By: #### B MP #### [facility] [address] [address] [address] Darlene Lucero EGFR-NON AF [place] >60 Normal >=60 [facility] Comment on above: Performed By: #### B MP #### [facility] [address] [place] [address] Dr. Darlene Lucero Glucose [Mass/Vol] 131 mg/dL Critically high 74-106 [facility] Comment on above: Performed By: #### B MP #### [facility] [address] [place] [address] Dr. Darlene Lucero Potassium [Moles/Vol] 4.2 mmol/L Normal 3.5-5.1 [facility] Comment on above: Performed By: #### B MP #### [facility] [address] [place] [address] Dr. Darlene Lucero Sodium [Moles/Vol] 121 mmol/L Critically low 136-145 [facility] Comment on above: Result Comment: repe ated Performed By: #### B MP #### [facility] [address] [place] [address] Dr. Darlene Lucero Urea nitrogen [Mass/Vol] 11.0 mg/dL Normal 7.0-18.0 [facility] Comment on above: Performed By: #### B MP #### [facility] [address] [place] [address] Dr. Darlene Lucero Urea nitrogen/Creatinine [Mass ratio] 18.3 mg/mg Normal [facility] Comment on above: Performed By: #### B MP #### [facility] [address] [place] [address] Dr. Darlene Lucero Anion gap [Moles/Vol] 10.4 mmol/L Normal [facility] Comment on above: Performed By: #### U WILLEM #### [facility] [address] [address] [address] Darlene Lucero Calcium [Mass/Vol] 8.1 mg/dL Critically low 8.5-10.1 [facility] Comment on above: Performed By: #### U WILLEM #### [facility] [address] [address] [address] Darlene Lucero Chloride [Moles/Vol] 85 mmol/L Critically low 98-107 [facility] Comment on above: Performed By: #### U WILLEM #### [facility] [address] [address] [address] Darlene Lucero CO2 [Moles/Vol] 25.9 mmol/L Normal 21.0-32.0 [facility] Comment on above: Performed By: #### U WILLEM #### [facility] [address] [place] [address] Dr. Darlene Lucero Creatinine [Mass/Vol] 0.57 mg/dL Normal 0.55-1.02 [facility] Comment on above: Performed By: #### U WILLEM #### [facility] [address] [place] [address] Dr. Darlene Lucero EGFR-AF [place] >60 Normal >=60 [facility] Comment on above: Performed By: #### U WILLEM #### [facility] [address] [place] [address] Dr. Darlene Lucero EGFR-NON AF [place] >60 Normal >=60 [facility] Comment on above: Performed By: #### U WILLEM #### [facility] [address] [place] [address] Dr. Darlene Lucero Glucose [Mass/Vol] 139 mg/dL Critically high 74-106 [facility] Comment on above: Performed By: #### U WILLEM #### [facility] [address] [place] [address] Dr. Darlene Lucero Potassium [Moles/Vol] 4.3 mmol/L Normal 3.5-5.1 [facility] Comment on above: Result Comment: SPEC IMEN SLIGHTLY HEMOLYZED MAY AFFECT K+ Performed By: #### U WILLEM #### [facility] [address] [address] [address] Darlene Lucero Sodium [Moles/Vol] 117 mmol/L Critically low 136-145 [facility] Comment on above: Result Comment: TEST REPEATED CRITICAL VALUE VERIFIED Performed By: #### U WILLEM #### [facility] [address] [address] [address] Darlene Lucero Urea nitrogen [Mass/Vol] 9.0 mg/dL Normal 7.0-18.0 [facility] Comment on above: Performed By: #### U WILLEM #### [facility] [address] [place] [address] Dr. Darlene Lucero Urea nitrogen/Creatinine [Mass ratio] 15.8 mg/mg Normal [facility] Comment on above: Performed By: #### U WILLEM #### [facility] [address] [place] [address] Dr. Darlene Lucero Anion gap [Moles/Vol] 12.9 mmol/L Normal [facility] Comment on above: Performed By: #### O SMOU #### [facility] [address] [place] [address] Dr. Darlene Lucero Calcium [Mass/Vol] 8.3 mg/dL Critically low 8.5-10.1 [facility] Comment on above: Performed By: #### O SMOU #### [facility] [address] [place] [address] Dr. Darlene Lucero Chloride [Moles/Vol] 84 mmol/L Critically low 98-107 [facility] Comment on above: Result Comment: test repeated critical value verified Performed By: #### O SMOU #### [facility] [address] [place] [address] Dr. Darlene Lucero CO2 [Moles/Vol] 25.1 mmol/L Normal 21.0-32.0 [facility] Comment on above: Performed By: #### O SMOU #### [facility] [address] [place] [address] Dr. Darlene Lucero Creatinine [Mass/Vol] 0.56 mg/dL Normal 0.55-1.02 [facility] Comment on above: Performed By: #### O SMOU #### [facility] [address] [place] [address] Dr. Darlene Lucero EGFR-AF [place] >60 Normal >=60 [facility] Comment on above: Performed By: #### O SMOU #### [facility] [address] [place] [address] Dr. Darlene Lucero EGFR-NON AF [place] >60 Normal >=60 [facility] Comment on above: Performed By: #### O SMOU #### [facility] [address] [place] [address] Dr. Darlene Lucero Potassium [Moles/Vol] 3.9 mmol/L Normal 3.5-5.1 [facility] Comment on above: Performed By: #### O SMOU #### [facility] [address] [place] [address] Dr. Darlene Lucero Sodium [Moles/Vol] 116 mmol/L Critically low 136-145 Th [facility] Comment on above: Result Comment: test repeated critical value verified Performed By: #### O SMOU #### [facility] [address] [place] [address] Dr. Darlene Lucero Urea nitrogen [Mass/Vol] 10.0 mg/dL Normal 7.0-18.0 [facility] Comment on above: Performed By: #### O SMOU #### [facility] [address] [place] [address] Dr. Darlene Lucero Urea nitrogen/Creatinine [Mass ratio] 17.9 mg/mg Normal [facility] Comment on above: Performed By: #### O SMOU #### [facility] [address] [place] [address] Dr. Darlene Lucero Anion gap [Moles/Vol] 11.9 mmol/L Normal [facility] Comment on above: Performed By: #### U WILLEM #### [facility] [address] [place] [address] Dr. Darlene Lucero Calcium [Mass/Vol] 8.4 mg/dL Critically low 8.5-10.1 [facility] Comment on above: Performed By: #### U WILLEM #### [facility] [address] [address] [address] Darlene Lucero Chloride [Moles/Vol] 81 mmol/L Critically low 98-107 [facility] Comment on above: Result Comment: TEST REPEATED CRITICAL VALUE VERIFIED Performed By: #### U WILLEM #### [facility] [address] [place] [address] Dr. Darlene Lucero CO2 [Moles/Vol] 27.8 mmol/L Normal 21.0-32.0 [facility] Comment on above: Performed By: #### U WILLEM #### [facility] [address] [place] [address] Dr. Darlene Lucero Creatinine [Mass/Vol] 0.60 mg/dL Normal 0.55-1.02 [facility] Comment on above: Performed By: #### U WILLEM #### [facility] [address] [place] [address] Dr. Darlene Lucero EGFR-AF [place] >60 Normal >=60 [facility] Comment on above: Performed By: #### U WILLEM #### [facility] [address] [place] [address] Dr. Darlene Lucero EGFR-NON AF [place] >60 Normal >=60 [facility] Comment on above: Performed By: #### U WILLEM #### [facility] [address] [place] [address] Dr. Darlene Lucero Glucose [Mass/Vol] 131 mg/dL Critically high 74-106 [facility] Comment on above: Performed By: #### U WILLEM #### [facility] [address] [place] [address] Dr. Darlene Lucero Potassium [Moles/Vol] 3.7 mmol/L Normal 3.5-5.1 [facility] Comment on above: Performed By: #### U WILLEM #### [facility] [address] [place] [address] Dr. Darlene Lucero Sodium [Moles/Vol] 117 mmol/L Critically low 136-145 [facility] Comment on above: Result Comment: TEST REPEATED CRITICAL VALUE VERIFIED Performed By: #### U WILLEM #### [facility] [address] [address] [address] Darlene Lucero Urea nitrogen [Mass/Vol] 9.0 mg/dL Normal 7.0-18.0 [facility] Comment on above: Performed By: #### U WILLEM #### [facility] [address] [address] [address] Darlene Lucero Urea nitrogen/Creatinine [Mass ratio] 15.0 mg/mg Normal [facility] Comment on above: Performed By: #### U WILLEM #### [facility] [address] [address] [address] Darlene Lucero Anion gap [Moles/Vol] 10.9 mmol/L Normal [facility] Comment on above: Performed By: #### B MP #### [facility] [address] [address] [address] Darlene Lucero Calcium [Mass/Vol] 8.3 mg/dL Critically low 8.5-10.1 [facility] Comment on above: Performed By: #### B MP #### [facility] [address] [address] [address] Darlene Lucero Chloride [Moles/Vol] 87 mmol/L Critically low 98-107 [facility] Comment on above: Performed By: #### B MP #### [facility] [address] [address] [address] Darlene Lucero CO2 [Moles/Vol] 25.7 mmol/L Normal 21.0-32.0 [facility] Comment on above: Performed By: #### B MP #### [facility] [address] [address] [address] Darlene Lucero Creatinine [Mass/Vol] 0.69 mg/dL Normal 0.55-1.02 [facility] Comment on above: Performed By: #### B MP #### [facility] [address] [address] [address] Darlene Lucero EGFR-AF [place] >60 Normal >=[address] [facility] Comment on above: Performed By: #### B MP #### [facility] [address] [address] [address] Darlene Lucero EGFR-NON AF [place] >60 Normal >=60 [facility] Comment on above: Performed By: #### B MP #### [facility] [address] [address] [address] Darlene Lucero Glucose [Mass/Vol] 139 mg/dL Critically high 74-106 T [facility] Comment on above: Performed By: #### B MP #### [facility] [address] [address] [address] Darlene Lucero Potassium [Moles/Vol] 3.7 mmol/L Normal 3.5-5.1 [facility] Comment on above: Performed By: #### B MP #### [facility] [address] [place] [address] Dr. Darlene Lucero Sodium [Moles/Vol] 121 mmol/L Critically low 136-145 [facility] Comment on above: Result Comment: Test Repeated. Critical Value Verified Performed By: #### B MP #### [facility] [address] [place] [address] Dr. Darlene Lucero Urea nitrogen [Mass/Vol] 9.0 mg/dL Normal 7.0-18.0 [facility] Comment on above: Performed By: #### B MP #### [facility] [address] [place] [address] Dr. Darlene Lucero Urea nitrogen/Creatinine [Mass ratio] 13.0 mg/mg Normal [facility] Comment on above: Performed By: #### B MP #### [facility] [address] [place] [address] Dr. Darlene Lucero Anion gap [Moles/Vol] 12.7 mmol/L Normal [facility] Comment on above: Performed By: #### O SMOU #### [facility] [address] [address] [address] Darlene Lucero Calcium [Mass/Vol] 8.0 mg/dL Critically low 8.5-10.1 [facility] Comment on above: Performed By: #### O SMOU #### [facility] [address] [place] [address] Dr. Darlene Lucero Chloride [Moles/Vol] 87 mmol/L Critically low 98-107 [facility] Comment on above: Performed By: #### O SMOU #### [facility] [address] [place] [address] Dr. Darlene Lucero CO2 [Moles/Vol] 24.0 mmol/L Normal 21.0-32.0 [facility] Comment on above: Performed By: #### O SMOU #### [facility] [address] [place] [address] Dr. Darlene Lucero Creatinine [Mass/Vol] 0.52 mg/dL Critically low 0.55-1.02 [facility] Comment on above: Performed By: #### O SMOU #### [facility] [address] [place] [address] Dr. Darlene Lucero EGFR-AF [place] >60 Normal >=60 [facility] Comment on above: Performed By: #### O SMOU #### [facility] [address] [place] [address] Dr. Darlene Lucero EGFR-NON AF [place] >60 Normal >=60 [facility] Comment on above: Performed By: #### O SMOU #### [facility] [address] [place] [address] Dr. Darlene Lucero Glucose [Mass/Vol] 158 mg/dL Critically high 74-106 [facility] Comment on above: Performed By: #### O SMOU #### [facility] [address] [address] [address] Darlene Lucero Potassium [Moles/Vol] 3.7 mmol/L Normal 3.5-5.1 [facility] Comment on above: Performed By: #### O SMOU #### [facility] [address] [place] [address] Dr. Darlene Lucero Sodium [Moles/Vol] 120 mmol/L Critically low 136-145 [facility] Comment on above: Result Comment: Test Repeated. Critical Value Verified Performed By: #### O SMOU #### [facility] [address] [place] [address] Dr. Darlene Lucero Urea nitrogen [Mass/Vol] 9.0 mg/dL Normal 7.0-18.0 [facility] Comment on above: Performed By: #### O SMOU #### [facility] [address] [place] [address] Dr. Darlene Lucero Urea nitrogen/Creatinine [Mass ratio] 17.3 mg/mg Normal [facility] Comment on above: Performed By: #### O SMOU #### [facility] [address] [place] [address] Dr. Darlene Lucero BNPon 08-31-2021 Natriuretic peptide B (Bld) [Mass/Vol] 898.0 pg/mL Normal <=900.0 [facility] Comment on above: Performed By: #### B MP #### [facility] [address] [place] [address] Dr. Darlene Lucero CBC AUTO DIFFon 08-31-2021 BASO # 0.0 103/ul Normal 0.0-0.1 [facility] Comment on above: Performed By: #### B MP #### [facility] [address] [place] [address] Dr. Darlene Lucero Basophils/100 WBC (Bld) 0.0 % Critically low 0.2-2.0 [facility] Comment on above: Performed By: #### B MP #### [facility] [address] [place] [address] Dr. Darlene Lucero EO # 0.0 103/ul Normal 0.0-0.7 [facility] Comment on above: Performed By: #### B MP #### [facility] [address] [place] [address] Dr. Darlene Lucero Eosinophils/100 WBC (Bld) 0.0 % Critically low 0.9-7.0 [facility] Comment on above: Performed By: #### B MP #### [facility] [address] [place] [address] Dr. Darlene Lucero Erythrocyte distribution width (RBC) [Ratio] 12.0 % Normal 11.0-15.0 [facility] Comment on above: Performed By: #### B MP #### [facility] [address] [place] [address] Dr. Darlene Lucero Hematocrit (Bld) [Volume fraction] 35.7 % Critically low 36.0-48.0 [facility] Comment on above: Performed By: #### B MP #### [facility] [address] [place] [address] Dr. Darlene Lucero Hemoglobin (Bld) [Mass/Vol] 12.5 g/dL Normal 12.0-16.0 [facility] Comment on above: Performed By: #### B MP #### [facility] [address] [place] [address] Dr. Darlene Lucero IG # 0.03 10e3/ul Normal 0.00-0.03 [facility] Comment on above: Performed By: #### B MP #### [facility] [address] [place] [address] Dr. Darlene Lucero IG % 0.4 % Normal 0.0-0.5 [facility] Comment on above: Performed By: #### B MP #### [facility] [address] [place] [address] Dr. Darlene Lucero LYMPH # 1.5 103/ul Normal 1.2-3.8 [facility] Comment on above: Performed By: #### B MP #### [facility] [address] [place] [address] Dr. Darlene Lucero Lymphocytes/100 WBC (Bld) 22.3 % Normal 20.5-60.0 [facility] Comment on above: Performed By: #### B MP #### [facility] [address] [place] [address] Dr. Darlene Lucero MANUAL DIFF REQ NO Normal [facility] Comment on above: Performed By: #### B MP #### [facility] [address] [place] [address] Dr. Darlene Lucero MCH (RBC) [Entitic mass] 29.6 pg Normal 26.7-34.0 [facility] Comment on above: Performed By: #### B MP #### [facility] [address] [address] [address] Darlene Lucero MCHC (RBC) [Mass/Vol] 35.0 g/dL Normal 29.9-35.2 [facility] Comment on above: Performed By: #### B MP #### [facility] [address] [address] [address] Darlene Lucero MCV (RBC) [Entitic vol] 84.6 fL Normal 81.0-99.0 [facility] Comment on above: Performed By: #### B MP #### [facility] [address] [address] [address] Darlene Lucero MONO # 0.8 103/ul Normal 0.3-0.8 [facility] Comment on above: Performed By: #### B MP #### [facility] [address] [place] [address] Dr. Darlene Lucero Monocytes/100 WBC (Bld) 11.5 % Normal 1.7-12.0 [facility] Comment on above: Performed By: #### B MP #### [facility] [address] [place] [address] Dr. Darlene Lucero NEUT # 4.5 103/ul Normal 1.4-6.5 [facility] Comment on above: Performed By: #### B MP #### [facility] [address] [place] [address] Dr. Darlene Lucero Neutrophils/100 WBC (Bld) 65.8 % Normal 43.0-75.0 [facility] Comment on above: Performed By: #### B MP #### [facility] [address] [place] [address] Dr. Darlene Lucero Platelet mean volume (Bld) [Entitic vol] 7.9 fL Critically low 9.5-13.5 [facility] Comment on above: Performed By: #### B MP #### [facility] [address] [place] [address] Dr. Darlene Lucero PLT 457 103/ul Critically high 150-450 [facility] Comment on above: Performed By: #### B MP #### [facility] [address] [place] [address] Dr. Darlnee Lucero RBC 4.22 106/ul Normal 4.20-5.40 [facility] Comment on above: Performed By: #### B MP #### [facility] [address] [place] [address] Dr. Darlene Lucero WBC 6.9 103/ul Normal 4.0-11.0 [facility] Comment on above: Performed By: #### B MP #### [facility] [address] [place] [address] Dr. Darlene Lucero CREATININE URINEon 2 URINE CREAT 91.14 mg/dL Normal 20.00-300.00 [facility] Comment on above: Performed By: #### C DAPHNE CALDERA #### [facility] [address] [place] [address] Dr. Darlene Lucero ER URINE PROFILEon 2 Bilirubin Ql (U) Negative Normal NEGATIVE [facility] Comment on above: Performed By: #### U WILLEM #### [facility] [address] [place] [address] Dr. Darlene Lucero Clarity (U) CLEAR Normal CLEAR [facility] Comment on above: Performed By: #### U WILLEM #### [facility] [address] [place] [address] Dr. Darlene Lucero Color (U) LT. YELLOW Normal YELLOW [facility] Comment on above: Performed By: #### U WILLEM #### [facility] [address] [place] [address] Dr. Darlene Lucero ERUJULIO CESAR A micrscopic examination will be performed if indicated. Normal [facility] Comment on above: Performed By: #### U WILLEM #### [facility] [address] [place] [address] Dr. Darlene Lucero Glucose Ql (U) Negative Normal NEGATIVE [facility] Comment on above: Performed By: #### U WILLEM #### [facility] [address] [place] [address] Dr. Darlene Lucero Hemoglobin Ql (U) TRACE-INTACT Abnormal NEGATIVE [facility] Comment on above: Performed By: #### U WILLEM #### [facility] [address] [place] [address] Dr. Darlene Lucero Ketones Ql (U) 15 mg/dl Abnormal NEGATIVE [facility] Comment on above: Performed By: #### U WILLEM #### [facility] [address] [place] [address] Dr. Darlene Lucero LEUKOCYTES Negative Normal NEGATIVE [facility] Comment on above: Performed By: #### U WILLEM #### [facility] [address] [place] [address] Dr. Darlene Lucero Nitrite Ql (U) Negative Normal NEGATIVE [facility] Comment on above: Performed By: #### U WILLEM #### [facility] [address] [place] [address] Dr. Darlene Lucero pH (U) 6.5 [pH] Normal 5-9 [facility] Comment on above: Performed By: #### U WILLEM #### [facility] [address] [place] [address] Dr. Darlene Lucero Protein (U) [Mass/Vol] 30 mg/dL Abnormal NEGATIVE/ TRACE [facility] Comment on above: Performed By: #### U WILLEM #### [facility] [address] [place] [address] Dr. Darlene Lucero SPEC GRAVITY 1.020 Normal 1.005-<=1.025 [facility] Comment on above: Performed By: #### U WILLEM #### [facility] [address] [place] [address] Dr. Darlene Lucero UR MICRO IND INDICATED Normal [facility] Comment on above: Performed By: #### U WILLEM #### [facility] [address] [place] [address] Dr. Darlene Lucero Urobilinogen Qn (U) 0.2 {Claudia'U}/dL Normal 0.2 - 1. 0 [facility] Comment on above: Performed By: #### U WILLEM #### [facility] [address] [place] [address] Dr. Darlene Lucero POINT OF CARE GLUCOSEon 05- Glucose [Mass/Vol] 147 mg/dL Critically high 74-106 [facility] Comment on above: Performed By: #### B MP #### [facility] [address] [address] [address] Darlene Lucero PROF CHEM 8 (BAS METB)on Anion gap [Moles/Vol] 13.4 mmol/L Normal [facility] Comment on above: Performed By: #### U WILLEM #### [facility] [address] [place] [address] Dr. Darlene Lucero Calcium [Mass/Vol] 8.2 mg/dL Critically low 8.5-10.1 [facility] Comment on above: Performed By: #### U WILLEM #### [facility] [address] [place] [address] Dr. Darlene Lucero Chloride [Moles/Vol] 86 mmol/L Critically low 98-107 [facility] Comment on above: Performed By: #### U WILLEM #### [facility] [address] [place] [address] Dr. Darlene Lucero CO2 [Moles/Vol] 23.4 mmol/L Normal 21.0-32.0 [facility] Comment on above: Performed By: #### U WILLEM #### [facility] [address] [place] [address] Dr. Darlene Lucero Creatinine [Mass/Vol] 0.51 mg/dL Critically low 0.55-1.02 [facility] Comment on above: Performed By: #### U WILLEM #### [facility] [address] [place] [address] Dr. Darlene Lucero EGFR-AF [place] >60 Normal >=60 [facility] Comment on above: Performed By: #### U WILLEM #### [facility] [address] [place] [address] Dr. Darlene Lucero EGFR-NON AF [place] >60 Normal >=60 [facility] Comment on above: Performed By: #### U WILLEM #### [facility] [address] [place] [address] Dr. Darlene Lucero Glucose [Mass/Vol] 145 mg/dL Critically high 74-106 [facility] Comment on above: Performed By: #### U WILLEM #### [facility] [address] [address] [address] Darlene Lucero Potassium [Moles/Vol] 3.8 mmol/L Normal 3.5-5.1 [facility] Comment on above: Performed By: #### U WILLEM #### [facility] [address] [address] [address] Darlene Lucero Sodium [Moles/Vol] 119 mmol/L Critically low 136-145 [facility] Comment on above: Result Comment: Test Repeated. Critical Value Verified Performed By: #### U WILLEM #### [facility] [address] [address] [address] Darlene Lucero Urea nitrogen [Mass/Vol] 11.0 mg/dL Normal 7.0-18.0 [facility] Comment on above: Performed By: #### U WILLEM #### [facility] [address] [address] [address] Darlene Lucero Urea nitrogen/Creatinine [Mass ratio] 21.6 mg/mg Normal [facility] Comment on above: Performed By: #### U WILLEM #### [facility] [address] [address] [address] Darlene Lucero Anion gap [Moles/Vol] 11.9 mmol/L Normal [facility] Comment on above: Performed By: #### B MP #### [facility] [address] [address] [address] Darlene Lucero Calcium [Mass/Vol] 8.0 mg/dL Critically low 8.5-10.1 [facility] Comment on above: Performed By: #### B MP #### [facility] [address] [address] [address] Darlene Lucero Chloride [Moles/Vol] 83 mmol/L Critically low 98-107 [facility] Comment on above: Performed By: #### B MP #### [facility] [address] [address] [address] Darlene Lucero CO2 [Moles/Vol] 24.9 mmol/L Normal 21.0-32.0 [facility] Comment on above: Performed By: #### B MP #### [facility] [address] [address] [address] Darlene Lucero Creatinine [Mass/Vol] 0.61 mg/dL Normal 0.55-1.02 [facility] Comment on above: Performed By: #### B MP #### [facility] [address] [address] [address] Darlene Lucero EGFR-AF [place] >60 Normal >=60 [facility] Comment on above: Performed By: #### B MP #### [facility] [address] [address] [address] Darlene Lucero EGFR-NON AF [place] >60 Normal >=60 [facility] Comment on above: Performed By: #### B MP #### [facility] [address] [address] [address] Darlene Lucero Glucose [Mass/Vol] 212 mg/dL Critically high 74-106 [facility] Comment on above: Performed By: #### B MP #### [facility] [address] [address] [address] Darlene Lucero Potassium [Moles/Vol] 3.7 mmol/L Normal 3.5-5.1 [facility] Comment on above: Performed By: #### B MP #### [facility] [address] [address] [address] Darlene Lucero Sodium [Moles/Vol] 116 mmol/L Critically low 136-145 [facility] Comment on above: Performed By: #### B MP #### [facility] [address] [address] [address] Darlene Lucero Urea nitrogen [Mass/Vol] 12.0 mg/dL Normal 7.0-18.0 [facility] Comment on above: Performed By: #### B MP #### [facility] [address] [address] [address] Darlene Lucero Urea nitrogen/Creatinine [Mass ratio] 19.7 mg/mg Normal [facility] Comment on above: Performed By: #### B MP #### [facility] [address] [address] [address] Darlene Lucero Anion gap [Moles/Vol] 11.7 mmol/L Normal [facility] Comment on above: Performed By: #### B MP #### [facility] [address] [place] [address] Dr. Darlene Lucero Calcium [Mass/Vol] 8.0 mg/dL Critically low 8.5-10.1 [facility] Comment on above: Performed By: #### B MP #### [facility] [address] [place] [address] Dr. Darlene Lucero Chloride [Moles/Vol] 86 mmol/L Critically low 98-107 [facility] Comment on above: Performed By: #### B MP #### [facility] [address] [place] [address] Dr. Darlene Lucero CO2 [Moles/Vol] 27.6 mmol/L Normal 21.0-32.0 [facility] Comment on above: Performed By: #### B MP #### [facility] [address] [place] [address] Dr. Darlene Lucero Creatinine [Mass/Vol] 0.57 mg/dL Normal 0.55-1.02 [facility] Comment on above: Performed By: #### B MP #### [facility] [address] [place] [address] Dr. Darlene Lucero EGFR-AF [place] >60 Normal >=60 [facility] Comment on above: Performed By: #### B MP #### [facility] [address] [address] [address] Darlene Lucero EGFR-NON AF [place] >60 Normal >=60 [facility] Comment on above: Performed By: #### B MP #### [facility] [address] [place] [address] Dr. Darlene Lucero Glucose [Mass/Vol] 152 mg/dL Critically high 74-106 [facility] Comment on above: Performed By: #### B MP #### [facility] [address] [address] [address] Darlene Lucero Potassium [Moles/Vol] 4.3 mmol/L Normal 3.5-5.1 [facility] Comment on above: Performed By: #### B MP #### [facility] [address] [address] [address] Darlene Lucero Sodium [Moles/Vol] 120 mmol/L Critically low 136-145 [facility] Comment on above: Performed By: #### B MP #### [facility] [address] [address] [address] Darlene Lucero Urea nitrogen [Mass/Vol] 12.0 mg/dL Normal 7.0-18.0 [facility] Comment on above: Performed By: #### B MP #### [facility] [address] [place] [address] Dr. Darlene Lucero Urea nitrogen/Creatinine [Mass ratio] 21.1 mg/mg Normal [facility] Comment on above: Performed By: #### B MP #### [facility] [address] [place] [address] Dr. Darlene Lucero Anion gap [Moles/Vol] 10.2 mmol/L Normal [facility] Comment on above: Performed By: #### B MP #### [facility] [address] [place] [address] Dr. Darlene Lucero Calcium [Mass/Vol] 8.6 mg/dL Normal 8.5-10.1 [facility] Comment on above: Performed By: #### B MP #### [facility] [address] [address] [address] Darlene Lucero Chloride [Moles/Vol] 78 mmol/L Critically low 98-107 [facility] Comment on above: Performed By: #### B MP #### [facility] [address] [address] [address] Darlene Lucero CO2 [Moles/Vol] 29.6 mmol/L Normal 21.0-32.0 [facility] Comment on above: Performed By: #### B MP #### [facility] [address] [address] [address] Darlene Lucero Creatinine [Mass/Vol] 0.70 mg/dL Normal 0.55-1.02 [facility] Comment on above: Performed By: #### B MP #### [facility] [address] [address] [address] Darlene Lucero EGFR-AF [place] >60 Normal >=60 [facility] Comment on above: Performed By: #### B MP #### [facility] [address] [address] [address] Darlene Lucero EGFR-NON AF [place] >60 Normal >=60 [facility] Comment on above: Performed By: #### B MP #### [facility] [address] [address] [address] Darlene Lucero Glucose [Mass/Vol] 116 mg/dL Critically high 74-106 [facility] Comment on above: Performed By: #### B MP #### [facility] [address] [place] [address] Dr. Darlene Lucero Potassium [Moles/Vol] 3.8 mmol/L Normal 3.5-5.1 [facility] Comment on above: Performed By: #### B MP #### [facility] [address] [place] [address] Dr. Darlene Lucero Sodium [Moles/Vol] 114 mmol/L Critically low 136-145 [facility] Comment on above: Performed By: #### B MP #### [facility] [address] [place] [address] Dr. Darlene Lucero Urea nitrogen [Mass/Vol] 17.0 mg/dL Normal 7.0-18.0 [facility] Comment on above: Performed By: #### B MP #### [facility] [address] [place] [address] Dr. Darlene Lucero Urea nitrogen/Creatinine [Mass ratio] 24.3 mg/mg Normal [facility] Comment on above: Performed By: #### B MP #### [facility] [address] [place] [address] Dr. Darlene Lucero SODIUM RANDOM URINEon 2021 Sodium (U) [Moles/Vol] 61 mmol/L Normal 30-90 [facility] Comment on above: Performed By: #### U WILLEM #### [facility] [address] [place] [address] Dr. Darlene Lucero TROPONIN, HIGH SENSITIVITYon 08-31-2021 HSTROP 14.6 pg/mL Normal 4.0-51.3 [facility] Comment on above: Result Comment: CUT- OFF POINTS HAVE BEEN ESTABLISHED BASED ON THE FOURTH UNIVERSAL DEFINITIONS OF MYOCARDIAL INFARCTION. THE UPPER REFERENCE LIMIT (URL) OF TROPONIN, DEFINED THE 99TH PERCENTILE OF cTnI DISTRIBUTION IN A REFERENCE POPULATION, HAS BEEN CONFIRMED THE DECISION THRESHOLD FOR MD DIAGNOSIS. Performed By: #### B MP #### [facility] [address] [place] [address] Dr. Darlene Lucero TSHon 08-31-2021 TSH 1.053 uIU/mL Normal 0.358-3.740 [facility] Comment on above: Performed By: #### B MP #### [facility] [address] [place] [address] Dr. Darlene Lucero TSH RANGE SEE BELOW Normal [facility] Comment on above: Result Comment: <0.3 4 UIU/ml HYPERTHYROID 0.34-5.60 UIU/ml EUTHYROID >5.60 UIU/ml HYPOTHYROID Performed By: #### B MP #### [facility] [address] [place] [address] Dr. Darlene Lucero URIC ACID SERUMon 08-31-2021 Urate [Mass/Vol] 1.4 mg/dL Critically low 2.6-6.0 [facility] Comment on above: Performed By: #### U WILLEM #### [facility] [address] [place] [address] Dr. Darlene Lucero URINE MICROSCOPIC ONLYon BACTERIA NONE SEEN Normal NONE SEEN [facility] Comment on above: Performed By: #### O SMOU #### [facility] [address] [place] [address] Dr. Darlene Lucero Bacteria identified Cx Nom (U) NOT INDICATED Normal [facility] Comment on above: Performed By: #### O SMOU #### [facility] [address] [place] [address] Dr. Darlene Lucero CAST NONE SEEN Normal NONE SEEN [facility] Comment on above: Performed By: #### O SMOU #### [facility] [address] [place] [address] Dr. Darlene Lucero Crystals LM Nom (Urine sed) NONE SEEN Normal NONE SEEN [facility] Comment on above: Performed By: #### O SMOU #### [facility] [address] [place] [address] Dr. Darlene Lucero Epithelial cells LM Ql (Urine sed) FEW Abnormal NONE SEEN /RARE [facility] Comment on above: Performed By: #### O SMOU #### [facility] [address] [place] [address] Dr. Darlene Lucero MUCOUS TRACE Abnormal NONE SEEN [facility] Comment on above: Performed By: #### O SMOU #### [facility] [address] [place] [address] Dr. Darlene Lucero RBC 0-2 Normal 0-2 [facility] Comment on above: Performed By: #### O SMOU #### [facility] [address] [place] [address] Dr. Darlene Lucero WBC NONE SEEN Normal NONE SEEN [facility] Comment on above: Performed By: #### O SMOU #### [facility] [address] [place] [address] Dr. Dralene Lucero URINE T PROTEIN CREAT RATIOo n 08-31-2021 Protein (U) [Mass/Vol] 67.7 mg/dL Critically high <=12.0 [facility] Comment on above: Performed By: #### B MP #### [facility] [address] [place] [address] Dr. Darlene Lucero UR PROT CREAT RAT 0.75 Normal [facility] Comment on above: Performed By: #### B MP #### [facility] [address] [place] [address] Dr. Darlene Lucero URINE CREAT 89.84 mg/dL Normal 20.00-300.00 [facility] Comment on above: Performed By: #### B MP #### [facility] [address] [place] [address] Dr. Darlene Lucero XR CHEST 1 Von [...] by: CHAYITO SOLIS Date: 2021-08-31 09:07 Normal [facility] Vital Signs Date Time Vital Sign Value Performing Clinician Faci lity 07-18-2024 08:22-0400 Body height 157.5 cm Flaco Resendiz MD Work Phone: [facility] 07-18-2024 08:22-0400 Body mass index (BMI) [Ratio] 26.05 kg/m2 Flaco Resendiz MD Work Phone: [facility] 07-18-2024 08:22-0400 Body weight 64.59 kg Flaco Resendiz MD Work Phone: [facility] 07-18-2024 08:22-0400 Diastolic blood pressure 77 mm[Hg] Flaco Resendiz MD Work Phone: [facility] 07-18-2024 08:22-0400 Heart rate 76 /min Flaco Resendiz MD Work Phone: [facility] 07-18-2024 08:22-0400 Systolic blood pressure 139 mm[Hg] Flaco Resendiz MD Work Phone: [facility] 04-11-2024 10:48-0500 Body height 157.5 cm Flaco Resendiz MD Work Phone: [facility] 04-11-2024 10:48-0500 Body mass index (BMI) [Ratio] 26.12 kg/m2 Flaco Resendiz MD Work Phone: [facility] 04-11-2024 10:48-0500 Body weight 64.77 kg Flaco Resendiz MD Work Phone: [facility] 04-11-2024 10:48-0500 Diastolic blood pressure 73 mm[Hg] Flaco Resendiz MD Work Phone: [facility] 04-11-2024 10:48-0500 Heart rate 72 /min Flaco Resendiz MD Work Phone: [facility] 04-11-2024 10:48-0500 SaO2% (BldA) [Mass fraction] 98 % Flaco Resendiz MD Work Phone: [facility] 04-11-2024 10:48-0500 Systolic blood pressure 138 mm[Hg] Flaco Resendiz MD Work Phone: [facility] 01-04-2024 09:25-0400 Body height 157.5 cm Flaco Resendiz MD Work Phone: [facility] 01-04-2024 09:25-0400 Body mass index (BMI) [Ratio] 25.97 kg/m2 Flaco Resendiz MD Work Phone: [facility] 01-04-2024 09:25-0400 Body weight 64.41 kg Flaco Resendiz MD Work Phone: [facility] 01-04-2024 09:25-0400 Diastolic blood pressure 76 mm[Hg] Flaco Resendiz MD Work Phone: [facility] 01-04-2024 09:25-0400 Systolic blood pressure 135 mm[Hg] Flaco Resendiz MD Work Phone: [facility] Healthcare Encounters Encounter Date Encounter Type Care Provider Facility Start: 07-18-2024 End: 07-18-2024 Office outpatient visit 25 minutes Flaco Resendiz MD Work Phone: [facility] Comment on above: Panlobular emphysema (CMS/HCC) (Primary Dx); Hyponatremia; Pure hypercholesterolemia (CMS/HCC); Postablative hypothyroidism (CMS/HCC); Acquired hypothyroidism (CMS/HCC); Essential hypertension (CMS/HCC) Start: 07-18-2024 End: 07-18-2024 ambulatory FLACO RESENDIZ Not Available Start: 04-11-2024 End: 04-11-2024 Office outpatient visit 25 minutes Flaco Resendiz MD Work Phone: [facility] Comment on above: Panlobular emphysema (CMS/HCC) (Primary Dx); Hyponatremia; Pure hypercholesterolemia (CMS/HCC); Postablative hypothyroidism (CMS/HCC); Generalized anxiety disorder (CMS/HCC) Start: 04-11-2024 End: 04-11-2024 ambulatory FLACO RESENDIZ Not Available Start: 03-21-2024 End: 03-21-2024 Clinisync Result Encounter Flaco Resendiz MD Work Phone: [facility] Unsolicited Start: 03-21-2024 End: 03-21-2024 Clinisync Result Encounter Flaco Resendiz MD Work Phone: [facility] Unsolic[facility] Start: 01-04-2024 End: 01-04-2024 ambulatory FLACO RESENDIZ Not Available Start: 01-04-2024 End: 01-04-2024 Office outpatient visit 25 minutes Flaco Resendiz MD Work Phone: [facility] Comment on above: Hyponatremia (Primar y Dx); Panlobular emphysema (CMS/HCC); Essential hypertension (CMS/HCC); Acquired hypothyroidism (CMS/HCC); Pure hypercholesterolemia (CMS/HCC) Start: 08-24-2023 End: 08-24-2023 ambulatory FLACO RESENDIZ Not Available Start: 05-18-2023 [...] management of inpatient DR OLENA CHERY . Facility:[facility] Procedures Date Procedure Procedure Detail Performing Clinician Start: 03-21-2024 ALL CBC WITH AUTO DIFF Flaco Resendiz MD Work Phone: Start: 05-18-2023 ALL BASIC METABOLIC PANEL Flaco Resendiz MD Work Phone: Plan of Treatment Date Care Activity Detail Author Start: 10-17-2024 End: 07-18-2025 Basic metabolic 1998 panel - Serum or Plasma Basic metabolic panel Lab Routine Hyponatremia Expected: 10/17/2024 (Approximate), Expires: 07/18/2025 [facility] Work Phone: Comment on above: Expected: 10/17/2024 (Approximate), Expi res: 07/18/2025 Start: 07-18-2024 End: 07-18-2024 Telemedicine consultation with patient 07/18/2024 8:30 AM EDT Telemedicine [facility] [address] [facility] [address] [place] [id number] Flaco Resendiz MD [address] [facility] [address] [place], [place] [id number] [facility] Start: 07-10-2024 End: 04-11-2025 CBC W Auto Differential panel - Blood CBC and differential Lab Routine Hyponatremia Pure hypercholesterolemia (CMS/HCC) Expected: 07/10/2024 (Approximate), Expires: 04/11/2025 [facility] Comment on above: Expected: 07/10/2024 (Approximate), Expi res: 04/11/2025 Start: 07-10-2024 End: 04-11-2025 Comprehensive metabolic 2000 panel - Serum or Plasma Comprehensive metabolic panel Lab Routine Hyponatremia Expected: 07/10/2024 (Approximate), Expires: 04/11/2025 [facility] Healthcare Work Phone: Comment on above: Expected: 07/10/2024 (Approximate), Expi res: 04/11/2025 Start: 07-10-2024 End: 04-11-2025 Lipid 1996 panel - Serum or Plasma Lipid panel Lab Routine Pure hypercholesterolemia (CMS/HCC) Expected: 07/10/2024 (Approximate), Expires: 04/11/2025 [facility] Healthcare Comment on above: Expected: 07/10/2024 (Approximate), Expi res: 04/11/2025 Start: 07-10-2024 End: 04-11-2025 TSH W/REFLEX TO FT4 TSH W/REFLEX TO FT4 Lab Routine Postablative hypothyroidism (CMS/HCC) Expected: 07/10/2024 (Approximate), Expires: 04/11/2025 [facility] Comment on above: Expected: 07/10/2024 (Approximate), Expi res: 04/11/2025 Start: 03-28-2024 End: 03-28-2024 Telemedicine consultation with patient 03/28/2024 9:00 AM EST Telemedicine [facility] [address] [facility] [address] [place] [id number] Flaco Resendiz MD [address] [facility] [address] [place] [address] [facility] Start: 03-16-2024 End: 01-03-2025 CBC W Auto Differential panel - Blood CBC and differential Lab Routine Panlobular emphysema (CMS/HCC) Essential hypertension (CMS/HCC) Acquired hypothyroidism (CMS/HCC) Expected: 03/16/2024 (Approximate), Expires: 01/03/2025 [facility] Work Phone: Comment on above: Expected: 03/16/2024 (Approximate), Expi res: 01/03/2025 Start: 03-16-2024 End: 01-03-2025 Comprehensive metabolic 2000 panel - Serum or Plasma Comprehensive metabolic panel Lab Routine Hyponatremia Essential hypertension (CMS/HCC) Expected: 03/16/2024 (Approximate), Expires: 01/03/2025 [facility] Comment on above: Expected: 03/16/2024 (Approximate), Expi res: 01/03/2025 Start: 12-16-2023 Influenza vaccination Influenza Vaccine (#1) [facility] Start: 06-01-2023 End: 06-01-2023 Patient encounter procedure 06/01/2023 10:00 AM EST Office Visit [facility] [address] [facility] [address] [place] [address] Flaco Resendiz MD [address] [facility] [address] [place] [address] [facility] Immunizations Immunization Date Immunization Notes Care Provider Fa cility 05-18-2023 zoster vaccine recombinant Luz Resendiz MD Work Phone: [facility] 02-02-2023 Influenza, Seasonal, Quadrivalent, Adjuvanted Flaco Resendiz MD Work Phone: [facility] 02-02-2023 zoster vaccine recombinant Luz Resendiz MD Work Phone: [facility] 02-02-2023 influenza virus vacc ine, unspecified formulation Flaco Resendiz MD Work Phone: [facility] 01-13-2022 Influenza, High-dose Seasonal, Quadrivalent, Preservative Free Flaco Resendiz MD Work Phone: [facility] 01-29-2021 Influenza, High-dose Seasonal, Quadrivalent, Preservative Free Flaco Resendiz MD Work Phone: [facility] 02-28-2020 influenza, high dose seasonal, preservative-free Flaco Resendiz MD Work Phone: [facility] 02-28-2020 zoster vaccine recombinant Luz Resendiz MD Work Phone: [facility] 01-12-2019 influenza, high dose seasonal, preservative-free Flaco Resendiz MD Work Phone: [facility] 12-07-2017 Influenza, High-dose Seasonal, Quadrivalent, Preservative Free Flaco Resendiz MD Work Phone: [facility] 12-18-2016 influenza, high dose seasonal, preservative-free Flaco Resendiz MD Work Phone: [facility] 03-22-2016 pneumococcal conjuga te vaccine, 13 valevelyn Resendiz MD Work Phone: [facility] 03-15-2016 influenza, injectabl e, quadrivalent, preservative free Flaco Resendiz MD Work Phone: [facility] 02-15-2015 influenza, injectabl e, quadrivalent, preservative free Flaco Resendiz MD Work Phone: [facility] 04-30-2012 pneumococcal polysaccharide vaccine, 23 valent Flaco Resendiz MD Work Phone: [facility] 01-14-2010 seasonal influenza, intradermal, preservative free Flaco Resendiz MD Work Phone: [facility] Payers Date Payer Category Payer Medicare [id number] 1958 Medicare [id number] 1945 Unknown [id number] 2.16.84 [id number] 1945 Unknown [id number] 2.16.84 [id number] 1945 Unknown [id number] 2.16.84 [id number] 1946 Unknown [id number] 2.16.84 [id number] 1946 Unknown [id number] 2.16.84 [id number] 1946 Unknown [id number] 2.16.84 [id number] 1946 Unknown [id number] 2.16.84 [id number] 1946 Unknown [id number] 2.16.84 [id number] 1946 Unknown [id number] 2.16.84 [id number] 1946 Unknown [id number] 2.16.84 [id number] 1946 Unknown [id number] 2.16.84 [id number] Social History Date Type Detail Facility Start: 09-27-2022 End: 07-18-2024 Tobacco smoking status GAIS [facility]-smoker [facility] End: 09-25-2018 History of tobacco use Current smoker [facility] End: 09-25-2018 History of tobacco use Cigarette Smoker [facility] Start: 09-27-2022 End: 03-17-2024 Cigarettes smoked current (pack per day) - Reported 0.5 [facility] Start: 09-27-2022 End: 07-18-2024 Tobacco use and exposure Smokeless tobacco non-user [facility] Start: 03-02-2023 End: 07-18-2024 Alcohol intake Lifetime non-drinker (finding) [facility] Start: 01-01-2023 End: 03-17-2024 Humiliation, Afraid, [...] [facility] History of Present illness Narrative 07-18-2024 Flaco Resendiz MD - 07/18/2024 8:30 AM EDT Note Date & Type Note Facility 07-18-2024 History of Presen t illness Narrative Images from the original note were not included. Subjective Patient ID: Fiona Reece is a 78 y.o. female who presents for COPD, Anxiety, and lab results. Today's visit is a televisit. Patient is seen via televisit. She is breathing well and has no complaints. No leg swelling, no chest pain, no increased dyspnea (from baseline). She had labs recently that we are going to discuss today. Anxiety Symptoms include shortness of breath. Patient reports no chest pain or palpitations. Current Outpatient Medications on File Prior to [...] as needed for anxiety 90 tablet 3 amLODIPine (Norvasc) 5 MG tablet TAKE ONE TABLET BY MOUTH DAILY 90 tablet 4 Mxvlvvyqpbj-Denacvmzm-Nifqxa (Trelegy Ellipta) 100-62.5-25 MCG/ACT aerosol powder Inhale 1 puff 1 (one) time each day at the same time 3 each 3 ibuprofen 200 MG tablet Take 200 mg by mouth every 6 (six) hours if needed. levothyroxine (Synthroid, Levoxyl) 88 MCG tablet Take 1 tablet (88 mcg) by mouth Daily 90 tablet 3 losartan (Cozaar) 50 MG tablet TAKE ONE TABLET BY MOUTH TWICE A DAY 180 tablet 3 Multiple Vitamin (multivitamin) capsule Take 1 capsule by mouth in the morning. OXYGEN-HELIUM IN Inhale 1 (one) time each day at the same time. polyethylene glycol, PEG, 3350 (MiraLax) 17 GM/SCOOP powder Take 17 g by mouth 1 (one) time. sodium chloride 1 g tablet Take 1 tablet (1 g) by mouth Daily 100 tablet 3 No current facility-administered medications on file prior to visit. I have reviewed and reconciled the history and medication list with the patient today. Allergies Allergen Reactions Gentamicin Unknown Social History Tobacco Use Smoking status: Former Current packs/day: 0.00 Types: Cigarettes Quit date: 09/25/2018 Years since quittin.8 Smokeless tobacco: Never Substance Use Topics Alcohol [...] 2007 COPD THYROIDECTOMY 1998 Visit Vitals BP 139/77 Pulse 76 Ht 5' 2 Wt 142 lb 6.4 oz BMI 26.05 kg/m Smoking Status Former BSA 1.68 m Review of Systems Constitutional: Negative for fatigue and fever. Respiratory: Positive for shortness of breath. Negative for cough, chest tightness and wheezing. Cardiovascular: Negative for chest pain, palpitations and leg swelling. Objective Physical Exam Constitutional: Appearance: Normal appearance. Pulmonary: Effort: Prolonged expiration present. Neurological: Mental Status: She is alert. Psychiatric: Mood and Affect: Mood normal. Behavior: Behavior normal. Thought Content: Thought content normal. Judgment: Judgment normal. Clinisync Result Encounter on 07/09/2024 Component Date Value Ref Range Status [facility] WBC 07/09/2024 6.1 4.0 - 11.0 10 3/uL Final [facility] RBC 07/09/2024 4.02 (L) 4.20 - 5.40 10 6/uL Final [facility] HGB 07/09/2024 12.1 12.0 - 16.0 g/dL Final [facility] HCT 07/09/2024 36.6 36.0 - 48.0 % Final [facility] MCV 07/09/2024 91.0 81.0 - 99.0 fL Final [facility] MCH 07/09/2024 30.1 26.7 - 34.0 pg Final [facility] MCHC 07/09/2024 33.1 29.9 - 35.2 g/dL Final [facility] RDW 07/09/2024 12.5 11.0 - 15.0 % Final [facility] PLT 07/09/2024 423 150 - 450 10 3/uL Final [facility] MPV 07/09/2024 8.7 (L) 9.5 - 13.5 fL Final NEUTROPHILS PERCENT AUTO 07/09/2024 56.0 43.0 - 75.0 % Final LYMPHOCYTES PERCENT AUTO 07/09/2024 30.3 20.5 - 60.0 % Final MONOCYTES PERCENT AUTO 07/09/2024 11.2 1.7 - 12.0 % Final [facility] EO % 07/09/2024 1.8 0.9 - 7.0 % Final BASOPHILS PERCENT AUTO 07/09/2024 0.5 0.2 - 2.0 % Final IMMATURE GRANULOCYTES PCT AUTO 07/09/2024 0.2 0.0 - 0.5 % Final NEUTROPHILS ABSOLUTE AUTO 07/09/2024 3.4 1.4 - 6.5 10 3/uL Final LYMPHOCYTES ABSOLUTE AUTO 07/09/2024 1.9 1.2 - 3.8 10 3/uL Final MONOCYTES ABSOLUTE AUTO 07/09/2024 0.7 0.3 - 0.8 10 3/uL Final [facility] EO # 07/09/2024 0.1 0.0 - 0.7 10 3/uL Final BASOPHILS ABSOLUTE AUTO 07/09/2024 0.0 0.0 - 0.1 10 3/uL Final IMMATURE GRANULOCYTES ABS AUTO 07/09/2024 0.01 0.00 - 0.03 10 3/uL Final SODIUM 07/09/2024 134 (L) 136 - 145 mmol/L Final POTASSIUM 07/09/2024 4.5 3.5 - 5.1 mmol/L Final CHLORIDE 07/09/2024 98 98 - 107 mmol/L Final CARBON DIOXIDE 07/09/2024 31.4 21.0 - 32.0 mmol/L Final ANION GAP 07/09/2024 9.1 Final GLUCOSE 07/09/2024 97 74 - 106 mg/dL Final BLOOD UREA NITROGEN 07/09/2024 16.0 7.0 - 18.0 mg/dL Final CREATININE 07/09/2024 0.72 0.55 - 1.02 mg/dL Final [facility] EGFR-AF [place] 07/09/2024 >60 >=60 mL/min/1.73m 2 Final [facility] EGFR-NON AF [place] 07/09/2024 >60 >=60 mL/min/1.73m 2 Final BUN CREATININE RATIO 07/09/2024 22.2 Final CALCIUM 07/09/2024 9.1 8.5 - 10.1 mg/dL Final BILIRUBIN TOTAL 07/09/2024 0.5 0.2 - 1.0 mg/dL Final ASPARTATE AMINO TRANSFERASE 07/09/2024 11 (L) 15 - 37 U/L Final ALANINE AMINOTRANSFERASE 07/09/2024 14 14 - 59 U/L Final ALKALINE PHOSPHATASE 07/09/2024 63 46 - 116 U/L Final TOTAL PROTEIN 07/09/2024 7.3 6.4 - 8.2 g/dL Final ALBUMIN LEVEL 07/09/2024 3.5 3.4 - 5.0 g/dL Final GLOBULIN 07/09/2024 3.8 g/dL Final ALBUMIN GLOBULIN RATIO 07/09/2024 0.9 Final TRIGLYCERIDES 07/09/2024 103 <=150 mg/dL Final CHOLESTEROL 07/09/2024 263 (H) <=200 mg/dL Final HDL CHOLESTEROL 07/09/2024 85 (H) 40 - 60 mg/dL Final Comment: > or =60 mg/dl - LOW CARDIOVASCULAR RISK <40 mg/dl - HIGH CARDIOVASCULAR RISK LDL CHOLESTEROL CALCULATED 07/09/2024 158.0 mg/dL Final Comment: <100 mg/dl OPTIMAL 100-129 mg/dl NEAR OR ABOVE OPTIMAL 130-159 mg/dl BORDERLINE HIGH 160-189 mg/dl HIGH >190 mg/dl VERY HIGH VLDL CHOLESTEROL 07/09/2024 20.6 mg/dL Final CHOL HDL RATIO 07/09/2024 3.1 Final Comment: 3.3 - 4.4 LOW RISK 4.4 - 7.1 AVERAGE RISK 7.1 - 11.0 MODERATE RISK >11.0 HIGH RISK TSH 07/09/2024 1.579 0.358 - 3.740 uIU/mL Final Assessment/Plan Diagnoses and all orders for this visit: Panlobular emphysema (CMS/HCC) - This is a chronic medical condition that is stable since last assessment. No changes in treatment are suggested at this time. Hyponatremia - Sodium at 134. This is actually good for her. Recheck in 3 months. Pure hypercholesterolemia (CMS/HCC) - Recent lab work for this condition was reviewed and discussed with the patient. Labs are at or near goal, no changes to medication are planned. Postablative hypothyroidism (CMS/HCC) - Recent lab work for this condition was reviewed and discussed with the patient. Labs are at or near goal, no changes to medication are planned. Acquired hypothyroidism (CMS/HCC) - See above. Essential hypertension (CMS/HCC) Follow up in about 3 months (around 10/17/2024) for Televisit. documented in this encounter [facility] History of Present illness Narrative 04-11-2024 [...] or shortness of breath 18 g 3 Tfpyhdfludd-Ptycsjtdv-Tnzkaj (Trelegy Ellipta) 100-62.5-25 MCG/ACT aerosol powder Inhale [...] 0.55 - 1.02 mg/dL Final TBH EGFR-AF [place] 03/21/2024 >60 >=60 mL/min/1.73m 2 Final TBH EGFR-NON AF [place] 03/21/2024 >60 >=60 mL/min/1.73m 2 Final BUN [...] g) by mouth Daily 100 tablet 3 Vkfpflcpwab-Xtgcdujuy-Pmfdwy (Trelegy Ellipta) 100-62.5-25 MCG/ACT aerosol powder Inhale [...] 2007 COPD THYROIDECTOMY 1998 Visit Vitals BP 135/76 Ht 5' 2 [...] 0.55 - 1.02 mg/dL Final TBH EGFR-AF [place] 11/30/2023 >60 >=60 Final TBH EGFR-NON AF [place] 11/30/2023 >60 >=60 Final BUN CREATININE RATIO [...] Televisit, Test/Lab Review. documented in this encounter [facility] Evaluation note Note Date & Type Note Facility Evaluation note Diagnosis Hyponatremia- Primary Hyposmolality and/or hyponatremia Panlobular emphysema (CMS/HCC) Other emphysema Essential hypertension (CMS/HCC) Unspecified essential hypertension Acquired hypothyroidism (CMS/HCC) Unspecified hypothyroidism Pure hypercholesterolemia (CMS/HCC) Pure hypercholesterolemia documented in this encounter [facility] Evaluation note Note Date & Type Note Facility Evaluation note Diagnosis Panlobular emphysema (CMS/HCC)- Primary Other emphysema Hyponatremia Hyposmolality and/or hyponatremia Pure hypercholesterolemia (CMS/HCC) Pure hypercholesterolemia Postablative hypothyroidism (CMS/HCC) Other postablative hypothyroidism Generalized anxiety disorder (CMS/HCC) Generalized anxiety disorder documented in this encounter [facility] Evaluation note Note Date & Type Note Facility Evaluation note Diagnosis Panlobular emphysema (CMS/HCC)- Primary Other emphysema Hyponatremia Hyposmolality and/or hyponatremia Pure hypercholesterolemia (CMS/HCC) Pure hypercholesterolemia Postablative hypothyroidism (CMS/HCC) Other postablative hypothyroidism Acquired hypothyroidism (CMS/HCC) Unspecified hypothyroidism Essential hypertension (CMS/HCC) Unspecified essential hypertension documented in this encounter [facility] Summary Purpose Family History No Family History Records FoundNo Family History Records Found Advance Directives No Advanced Directives Records FoundNo Advanced Directives Records Found Additional Source Comments INFORMATION SOURCE (unrecogn ized section and content) DATE CREATED AUTHOR 08/12/2022 [facility] DATE CREATED AUTHOR AUTHOR'S ORGANIZ ATION 07/20/2024 [facility] Care Teams (unrecognized sec tion and content) Industrial Training Specialist Relationship Specialty Start Date End Date Flaco Resendiz MD [address] [place] [address] PCP - ACO Reach 09/07/22 Flaco Resendiz MD [address] [place] [address] PCP - General Internal Medicine 09/27/22 Industrial Training Specialist Relationship Specialty Start Date End Date Flaco Resendiz MD [address] [place] [address] PCP - ACO Reach 09/07/22 Flaco Resendiz MD [address] [place] [address] PCP - General Internal Medicine 09/27/22 Industrial Training Specialist Relationship Specialty Start Date End Date Flaco Resendiz MD [address] [place] [address] PCP - ACO Reach 09/07/22 Flaco Resendiz MD [address] [place] [address] PCP - General Internal Medicine 09/27/22 Industrial Training Specialist Relationship Specialty Start Date End Date Flaco Resendiz MD [address] [place] [address] PCP - ACO Reach 09/07/22 Flaco Resendiz MD [address] [place] [address] PCP - General Internal Medicine 09/27/22 Industrial Training Specialist Relationship Specialty Start Date End Date Flaco Resendiz MD [address] [place] [address] PCP - ACO Reach 09/07/22 Flaco Resendiz MD [address] [place] [address] PCP - General Internal Medicine 09/27/22 Zoraida Tabares LPN 07/04/24 Reason for Visit (unrecogniz ed section and content) Reason Comments COPD Hypertension Results Lab Reason Comments Results Lab results COPD Med Refill Xanax-- med shop [facility] Reason Comments COPD Anxiety lab results FOR RECORDS PERTAINING TO PATIENTS WHO ARE [...] BE BASED ON THE PRIMARY CLINICAL RECORDS. [facility], [facility]. provides no warranty or guarantee of the accuracy or completeness of information in this document.
[2024-10-10 09:20] LABS: Anion Gap 8.6; BUN Creatinine Ratio 41.2; Calcium 9.4 mg/dL (8.5-10.1); Carbon Dioxide 33.4 mmol/L (21.0-32.0); Chloride 99 mmol/L (98-107); Estimated GFR (African America >60 (>=60 mL/min/1.73m^2); Estimated GFR (Non-African Ame >60 (>=60 mL/min/1.73m^2); Glucose 88 mg/dL (74-106); Sodium 136 mmol/L (136-145)
== END 2024-10-10 07:59 | disposition home or self-care (01) ==
LOC: LAB 07:58
PROVIDERS: PCP Internal Medicine; Visit Provider Internal Medicine
DX: E87.1 Hypo-osmolality and hyponatremia (principal)
CPT/HCPCS: 36415; 80048

== ENCOUNTER 2025-01-16 09:21 | Outpatient (OUT) | payer MEDICARE, SELFPAY ==
--- OUTSIDE RECORDS SUMMARY | 2025-01-16 09:25 | XMS_ITS | Encounter Summary ---
Author Organization [facility] Address [address] [place] [address] Care Team Providers Care Groutman Name Role Phone Flaco Resendiz MD Unavailable [phone] Flaco Resendiz MD Primary Care Provider [phone] Iris Luciano RN Unavailable [phone] Zoraida Tabares LPN Unavailable Encounter Details Date Type Department Care Team (Late st Contact Info) Description 02/13/2024 Abstract [facility] [place] [facility] 112 [facility] [address] [place] [id number] Flaco Resendiz MD 112 [facility] [address] [place] [address] Social History Tobacco Use Types Packs/Day Years Used Date Smoking Tobacco: Former Cigarettes Q uit: 09/25/2018 Smokeless Tobacco: Never Alcohol Use Standard Drinks/Week Comments Never 0 (1 standard drink = 0.6 oz pur e alcohol) B1300 Health Literacy Answer Date Recor ded How often do you need to hav e someone help you when you read instructions, pamphlets, or other written material from your doctor or pharmacy? Never 01/04/2024 Humiliation, Afraid, Rape, and Kick questionnair e Answer Date Recorded Within the last year, have y ou been afraid of your partner or ex-partner? No 01/01/2023 Within the last year, have y ou been humiliated or emotionally abused in other ways by your partner or ex-partner? No Within the last year, have y ou been kicked, hit, slapped, or otherwise physically hurt by your partner or ex-partner? No 01/01/2023 Within the last year, have y ou been raped or forced to have any kind of sexual activity by your partner or ex-partner? No 01/01/2023 Social Connection and Isolation Panel [NHANES] A nswer Date Recorded Frequency of Communication with Friends and Fami ly Not on file 01/04/2024 Frequency of Social Gatherings with Friends and Family Not on file 01/04/2024 Attends Caodaism Services Not on file 01/03 Active Member of Clubs or Organizations Not on f ile 01/04/2024 Attends Club or Organization Meetings Not on timbo e 01/04/2024 Are you , , di vorced, , never , or living with a partner? 01/04/2024 AUDIT-C Answer Date Recorded Q1: How often do you have a drink containing alcohol? Never 01/01/2023 Q2: How many drinks containi ng alcohol do you have on a typical day when you are drinking? Patient does not drink Q3: How often do you have si x or more drinks on one occasion? Never 01/01/2023 Overall Financial Resource Strain (CARDIA) Answe r Date Recorded How hard is it for you to pa y for the very basics like food, housing, medical care, and heating? Not hard at all 01/01/2023 [facility] Occupat ional Health - Occupational Stress Questionnaire Answer Date Recorded Do you feel stress - tense, restless, nervous, or anxious, or unable to sleep at night because your mind is troubled all the time - these days? Not at all 01/01/2023 Exercise Vital Sign Answer Date Recorde d On average, how many days pe r week do you engage in moderate to strenuous exercise (like a brisk walk)? 0 days 01/04/2024 On average, how many minutes do you engage in exercise at this level? 10 min 01/04/2024 Hunger Vital Sign Answer Date Recorded Within the past 12 months, y ou worried that your food would run out before you got the money to buy more. Never true 01/02/20 Within the past 12 months, t he food you bought just didn't last and you didn't have money to get more. Never true 01/01/2023 PRAPARE - Transportation Answer Date Re corded In the past 12 months, has l ack of transportation kept you from medical appointments or from getting medications? No 12/15 In the past 12 months, has l ack of transportation kept you from meetings, work, or from getting things needed for daily living? No 01/01/2023 Housing Stability Vital Sign Answer Alok e Recorded In the last 12 months, was t here a time when you were not able to pay the mortgage or rent on time? No 01/01/2023 In the last 12 months, how many places have you lived? 1 01/01/2023 In the last 12 months, was t here a time when you did not have a steady place to sleep or slept in a penitentiary (including now)? No 01/01/2023 Housing Stability Vital Sign Answer Alok e Recorded In the last 12 months, was t here a time when you were not able to pay the mortgage or rent on time? No 01/04/2024 Number of Times Moved in the Last Year Not on fi le 01/04/2024 At any time in the past 12 m [facility], were you homeless or living in a penitentiary (including now)? No 01/04/2024 Comments Unknown Sex and Gender Information Value Date Recorded Sex Assigned at Not on file Legal Sex Female 6:54 PM EDT Gender Identity Not on file Sexual Orientation Not on file documented as of this encounter Plan of Treatment Upcoming Encounters Date Type Department Care Team (Late st Contact Info) Description 01/23/2025 8:30 AM EDT Office Visit [facility] [place] [facility] [address] [facility] [address] [place] [address] Flaco Resendiz MD [address] [facility] [address] [place] [address] documented as of this encounter Visit Diagnoses Not on filedocumented in this encounter Care Teams Groutman Relationship Specialty Start Date End Date Flaco Resendiz MD [address] [facility] [address] [place] [address] PCP - ACO Reach 09/07/22 Flaco Resendiz MD [address] [facility] [address] [place] [address] PCP - General Internal Medicine 09/27/22 Iris Luciano, RN [address] [place] [address] Clinical Advocate Family Medicine 05/23/24 07/04/24 Zoraida Tabares LPN [address] [facility] [address] [place] [address] 07/04/24 documented as of this encounter
--- OUTSIDE RECORDS SUMMARY | 2025-01-16 09:25 | XMS_ITS | Encounter Summary ---
Author Organization [facility] Address [address] [place] [address] Care Team Providers Care Gravel Machine Operator Name Role Phone Flaco Resendiz MD Unavailable [phone] Flaco Resendiz MD Primary Care Provider [phone] Zoraida Tabares LPN Unavailable Encounter Details Date Type Department Care Team (Late st Contact Info) Description 07/16/2024 Abstract [facility] [place] [facility] 112 [facility] 110 [place] [phone] Flaco Resendiz MD 112 [facility] 110 [place], [place] [id number] Social History Tobacco Use Types Packs/Day Years [...] Isolation Panel [NHANES] A nswer Date Recorded In a typical week, how many times do you talk on the phone with family, friends, or neighbors? Three times a week 03/17/2024 How often do you get togethe r with friends or relatives? Once a week 03/17/2024 How often do you attend chur ch or cheondoism services? Never 03/17/2024 Do you belong to any clubs o r organizations such as sikhism groups, unions, fraternal or athletic groups, or school groups? No 03/17/2024 How often do you attend meet ings of the clubs or organizations you belong to? Never 03/17/2024 Are you , , di vorced, , never , or living with a partner? 03/17/2024 AUDIT-C Answer Date Recorded Q1: How often [...] and heating? Not hard at all 01/01/2023 PHQ-2 Answer Date Recorded Patient Health Questionnaire-2 Score 0 07/18/2024 [facility] of Occupat ional Health - Occupational Stress [...] money to buy more. Never true 01/02/20 23 Within the past 12 months, t he [...] place to sleep or slept in a jail (including now)? No 01/01/2023 Housing Stability Vital Sign Answer Alok e Recorded In the last 12 months, was t here a time when you were not able to pay the mortgage or rent on time? No 03/17/2024 In the past 12 months, how m any times have you moved where you were living? 0 03/17/2024 At any time in the past 12 m [facility], were you homeless or living in a jail (including now)? No 03/17/2024 Comments Unknown Sex and Gender Information Value Date Recorded Sex Assigned at Not on file Legal Sex Female 6:54 PM EDT Gender Identity Not on file Sexual Orientation Not on file documented as of this encounter Functional Status * Over the past 2 weeks, how often have you been bothered by any of the following problems? Question Answer Date of Assessment Author Little interest or pleasure in doing things Not at all 07/18/2024 8:01 AM EDT Iris Mckinney MA Feeling down, depressed, or hopeless Not at all 07/18/2024 8:01 AM EDT Iris Mckinney MA Patient Health Questionnaire -2 Score 0 07/18/2024 8:01 AM EDT Iris Mckinney MA documented as of this encounter Plan of Treatment Upcoming Encounters Date Type Department Care Team (Late st Contact Info) Description 01/23/2025 8:30 AM EDT Office Visit [facility] [place] [facility] [address] [place] [address] [place] [address] Flaco Resendiz MD [address] [place] [address] documented as of this encounter Visit Diagnoses Not on filedocumented in this encounter Care Teams Gravel Machine Operator Relationship Specialty Start Date End Date Flaco Resendiz MD [address] [place] [address] PCP - ACO Reach 09/07/22 Flaco Resendiz MD [address] [place] [address] PCP - General Internal Medicine 09/27/22 Zoraida Tabares LPN [address] [place] [address] 07/04/24 documented as of this encounter
--- OUTSIDE RECORDS SUMMARY | 2025-01-16 09:25 | XMS_ITS | Clinical Summary ---
Author Organization [facility] Address [address] [place] [address] Care Team Providers Care Loading Checker Name Role Phone Flaco Resendiz MD Unavailable [phone] Flaco Resendiz MD Primary Care Provider [phone] Zoraida Tabares LPN Unavailable Allergies Active Allergy Reactions Criticality Noted Date Comments Gentamicin Unknown 02/28/2021 Medications Multiple Vitamin (multivitamin) capsule Take 1 capsule by mouth in the morning. Active OXYGEN-HELIUM IN Inhale 1 (one) time each day at the same time. Active ibuprofen 200 MG tablet Take 200 mg by mouth every 6 (six) hours if needed. Active polyethylene glycol, PEG, 3350 (MiraLax) 17 GM/SCOOP powder Take 17 g by mouth 1 (one) time. Active sodium chloride 1 g tabletIndications :Hyponatremia Take 1 tablet (1 g) by mouth Daily 100 tablet 3 025 2025 Active losartan (Cozaar) 50 MG tabletIndications :Essential hypertension TAKE ONE TABLET BY MOUTH TWICE A DAY 180 tablet 3 025 Active Ventolin HFA 108 (90 Base) MCG/ACT inhalerIndication s:Chronic obstructive pulmonary disease, unspecified COPD type (HCC) INHALE 2 PUFFS EVERY 6 (SIX) HOURS IF NEEDED FOR WHEEZING OR SHORTNESS OF BREATH 18 g 3 025 Active levothyroxine (Synthroid, Levoxyl) 88 MCG tabletIndications :Pure hypercholesterole car,Postablative hypothyroidism TAKE ONE TABLET BY MOUTH DAILY 90 tablet 025 Active ALPRAZolam (Xanax) 0.5 MG tabletIndications :Generalized anxiety disorder Take 1 tablet (0.5 mg) by mouth 3 (three) times a day as needed for anxiety 90 tablet 3 025 Active meclizine (Antivert) 12.5 MG tabletIndications :Active cochlear Meniere's disease, unspecified laterality Take 1 tablet (12.5 mg) by mouth 3 (three) times a day as needed for dizziness 30 tablet 3 025 Active Fluticasone-Umecl idin-Vilant (Trelegy Ellipta) 100-62.5-25 MCG/ACT aerosol powderIndications :Panlobular emphysema (HCC) Inhale 1 puff 1 (one) time each day at the same time 3 each 3 025 2024 Active aspirin 81 MG EC tablet Take 81 mg by mouth Daily Active albuterol (2.5 MG/3ML) 0.083% nebulizer solutionIndicatio ns:Panlobular emphysema (HCC),COPD with acute exacerbation (HCC) INHALE 3 ML BY NEBULIZER EVERY 6 HOURS NEEDED FOR SHORTNESS OF BREATH OR WHEEZING 75 mL 3 025 Active amLODIPine (Norvasc) 5 MG tabletIndications :Essential hypertension Take 1 tablet (5 mg) by mouth Daily 90 tablet 025 2024 Active amLODIPine (Norvasc) 5 MG tabletIndications :Essential hypertension TAKE ONE TABLET BY MOUTH DAILY 90 tablet 4 024 2024 Discontinued(R eorder) albuterol (2.5 MG/3ML) 0.083% nebulizer solutionIndicatio ns:Panlobular emphysema (HCC),COPD with acute exacerbation (HCC) Take 3 mL (2.5 mg) by nebulization every 6 (six) hours if needed for wheezing or shortness of breath 75 mL 3 024 2024 Discontinued Active Problems Problem Noted Date Diagnosed Date Chronic insomnia 06/01/2023 Disuse osteoporosis 10/25/2022 Active Meniere's disease, 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 10/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 Generalized osteoarthrosis, involving multiple s ites 10/25/2022 Compression fracture of vertebra 10/25/2022 Generalized anxiety disorder 10/25/2022 Pure hypercholesterolemia 10/25/2022 Postablative hypothyroidism 10/25/2022 Vitamin D deficiency 10/25/2022 Essential hypertension 10/25/2022 Spondylosis of lumbar region without myelopathy or radiculopathy 10/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 Other hyperlipidemia 10/25/2022 Cigarette nicotine dependence without complicati on 10/25/2022 Grief reaction 10/25/2022 Hyponatremia 10/25/2022 Panlobular emphysema 10/25/2022 Respiratory failure with hypoxia 10/25/2022 Smoker 10/25/2022 Abnormal gait 10/25/2022 Resolved Problems Problem Noted Date Diagnosed Date Resolved Date Chronic obstructive pulmonary disease 10/25/2022 06/01/2023 Acquired hypothyroidism 10/25/202205/17 Encounters Date Type Department Care Team Description 01/08/2025 [facility] [address] [place] [address] Zoraida Tabares LPN 01/05/2025 Refill [facility] [address] [place] [address] [place] [address] Flaco Resendiz MD Panlobular emphysema (HCC); COPD with acute exacerbation (HCC) 11/26/2024 [facility] [address] [place] [address] Zoraida Tabares LPN 11/07/2024 8:30 AM EDT Telemedicine [facility] [address] [place] [address] [place] [address] Flaco Resendiz MD Panlobular emphysema (HCC) (Primary Dx); Acute non-recurrent sinusitis, unspecified location; Active cochlear Meniere's disease, unspecified laterality 11/07/2024 Travel from Last 3 Months Immunizations Immunization Administration Dates Next Due Influenza, High Dose Seasona l, Preservative Free 02/28/2020,01/12/2019,12/18/2016 Influenza, High-dose Seasona l, Quadrivalent, Preservative Free 01/13/2022,01/29/2021,12/07/2017 Influenza, Seasonal, Quadriv alent, Adjuvanted 02/02/2023 Influenza, injectable, quadr ivalent, preservative free 03/15/2016,02/15/2015 Influenza, seasonal, intrade rmal, preservative free 01/14/2010 Pneumococcal Conjugate PCV 13 03/22/2016 Pneumococcal Polysaccharide PPSV23 04/30/2012 Zoster, Recombinant 05/18/2023,02/02/2023,2019 Family History Relation Name Status Comments Daughter in 2020 Social History Tobacco Use Types Packs/Day Years Used Date Smoking Tobacco: Former Cigarettes Q uit: 09/25/2018 Smokeless Tobacco: Never Tobacco Cessation:Counseling Given: Yes Alcohol Use Standard Drinks/Week Comments Never 0 [...] often do you attend chur ch or church services? Never 03/17/2024 Do you belong to any clubs o r organizations such as advent groups, unions, fraternal or athletic groups, or [...] Date Recorded Patient Health Questionnaire-2 Score 0 11/07/2024 [facility] of Occupat ional Health - Occupational Stress [...] place to sleep or slept in a fci (including now)? No 01/01/2023 Housing Stability Vital [...] time in the past 12 m [facility], were you homeless or living in a fci (including now)? No 03/17/2024 Comments Unknown Sex and Gender Information Value Date Recorded Sex Assigned at Not on file Legal Sex Female 6:54 PM EDT Gender Identity Not on file Sexual Orientation Not on file Last Filed Vital Signs Vital Sign Reading Time Taken Comments Blood Pressure 135/72 11/07/2024 8:38 AM EDT Pulse 88 11/07/2024 8:38 AM EDT Temperature - - Respiratory Rate - - Oxygen Saturation 97% 11/07/2024 8:38 AM EDT Inhaled Oxygen Concentration - - Weight 65.8 kg (145 lb) 11/07/2024 8:38 AM EDT Height 157.5 cm (5' 2 ) 11/07/2024 8:38 AM EDT Body Mass Index 26.52 11/07/2024 8:38 AM EDT Plan of Treatment Upcoming Encounters Date Type Department Care Team (Late st Contact Info) Description 01/23/2025 8:30 AM EDT Office Visit [facility] [place] [facility] 112 [facility] 110 [place] [address] Flaco Resendiz MD 112 [facility] [address] [place] [address] Health Maintenance Due Date Last Done Comments Influenza Vaccine (#1) 2024 , 02/02/2023, 01/13/2022, Additional history exists Pneumococcal Vaccine: 65+ Years Completed 01/19/2024, 03/22/2016, 04/30/2012 [place] [address] Care Teams Loading Checker Relationship Specialty Start Date End Date Flaco Resendiz MD [address] [address] PCP - ACO Reach 09/07/22 Flaco Resendiz MD [address] [place] [address] [place] [address] PCP - General Internal Medicine 09/27/22 Zoraida Tabares LPN [address] [address] 07/04/24
--- OUTSIDE RECORDS SUMMARY | 2025-01-16 09:25 | XMS_ITS | Encounter Summary ---
Author Organization [facility] Healthcare Address [address] [place] [address] Care Team Providers Care Salesperson New Cars Name Role Phone Flaco Resendiz MD Unavailable [phone] Flaco Resendiz MD Primary Care Provider [phone] Zoraida Tabares LPN Unavailable Encounter Details Date Type Department Care Team (Late st Contact Info) Description 01/08/2025 Patient Outreach [facility] [address] [place] [phone] Zoraida Tabares LPN [address] [facility] 110 [place] [address] Social History Tobacco Use Types [...] often do you attend chur ch or mosque services? Never 03/17/2024 Do you belong to any clubs o r organizations such as rastafarian groups, unions, fraternal or athletic groups, or [...] Recorded Patient Health Questionnaire-2 Score 0 11/07/2024 [facility] [place] of Occupat ional Health - Occupational Stress [...] place to sleep or slept in a mcc (including now)? No 01/01/2023 Housing Stability Vital Sign Answer Alok e Recorded In the last 12 months, was t here a time when you were not able to pay the mortgage or rent on time? No 03/17/2024 In the past 12 months, how m any times have you moved where you were living? 0 03/17/2024 At any time in the past 12 m [facility], were you homeless or living in a mcc (including now)? No 03/17/2024 Comments Unknown Sex and Gender Information Value Date Recorded Sex Assigned at Not on file Legal Sex Female 6:54 PM EDT Gender Identity Not on file Sexual Orientation Not on file documented as of this encounter Progress Notes * Zoraida Tabares LPN - 01/08/2025 8:51 AM EDT Called pt back. Pt had some questions. Wants to know if she can take Sudafed with her medications she is on. She knows she knows she can take zyrtec but wanted to know if sudafed would be ok because it is on hand. Pt also needs refill on Amlodipine. Pt asks service writer to ask PCP if he wants her to get another lab to check her sodium before her Televisit on 01/23. Pt has no further needs or concerns at this time. * Zoraida Tabares LPN - 01/08/2025 8:51 AM EDT Called pt back to let her know that PCP said Sudafed is ok but no longer than 10 days and it is notfor everyday use. Pt voices understanding. I also let her know that I can see a lab order that was due in October for her BMP that she should complete before televisit. Pot states she will do so becauseshe wants to know how her sodium is doing. documented in this encounter Plan of Treatment Upcoming Encounters Date Type Department Care Team (Late st Contact Info) Description 01/23/2025 8:30 AM EDT Office Visit [facility] [place] [facility] [address] [facility] [address] [place] [address] Flaco Resendiz MD [address] [facility] [address] [place] [address] documented as of this encounter Visit Diagnoses Diagnosis Chronic obstructive pulmonary disease with (acute) exacerbation (HCC)- Primary Essential hypertension Unspecified essential hypertension documented in this encounter Care Teams Salesperson New Cars Relationship Specialty Start Date End Date Flaco Resendiz MD [address] [facility] [address] [place] [address] PCP - ACO Reach 09/07/22 Flaco Resendiz MD [address] [facility] [address] [place] [address] PCP - General Internal Medicine 09/27/22 Zoraida Tabares LPN 112 [facility] 110 [place] [address] 07/04/24 documented as of this encounter
--- OUTSIDE RECORDS SUMMARY | 2025-01-16 09:25 | XMS_ITS | Encounter Summary ---
Author Organization [facility] Address [address] [place] [address] Care Team Providers Care Fleet Technician Name Role Phone Flaco Resendiz MD Unavailable [phone] Flaco Resendiz MD Primary Care Provider Iris Luciano RN Unavailable [phone] Zoraida Tabares LPN Unavailable Encounter Details Date Type Department Care Team (Late st Contact Info) Description 12/01/2022 Abstract [facility] [place] [facility] 112 [facility] 110 [place] [phone] Flaco Resendiz MD 112 [facility] 110 [place] [address] Social History Tobacco Use Types Packs/Day Years Used Date Smoking Tobacco: Former Cigarettes Q uit: 09/25/2018 Smokeless Tobacco: Never Humiliation, Afraid, Rape, and Kick questionnair e Answer Date Recorded Within the last year, have y ou been afraid of your partner or ex-partner? No 12/01/2022 Within the last year, have y ou been humiliated or emotionally abused in other ways by your partner or ex-partner? No Within the last year, have y ou been kicked, hit, slapped, or otherwise physically hurt by your partner or ex-partner? No 12/01/2022 Within the last year, have y ou been raped or forced to have any kind of sexual activity by your partner or ex-partner? No 12/01/2022 Social Connection and Isolation Panel [NHANES] A nswer Date Recorded Frequency of Communication with Friends and Fami ly Not on file 12/01/2022 Frequency of Social Gatherings with Friends and Family Not on file 12/01/2022 Attends Judaism Services Not on file 12/01 Do you belong to any clubs o r organizations such as pentecostalism groups, unions, fraternal or athletic groups, or school groups? Patient declined 12/01/2022 How often do you attend meet ings of the clubs or organizations you belong to? Patient declined 12/01/2022 Are you , , di vorced, , never , or living with a partner? 12/01/2022 AUDIT-C Answer Date Recorded Q1: How often do you have a drink containing alcohol? 4 or more times a week 12/01/2022 Q2: How many drinks containi ng alcohol do you have on a typical day when you are drinking? 1 or 2 3 Q3: How often do you have si x or more drinks on one occasion? Never 12/01/2022 Overall Financial Resource Strain (CARDIA) Answe r Date Recorded How hard is it for you to pa y for the very basics like food, housing, medical care, and heating? Not hard at all 12/01/2022 Hunger Vital Sign Answer Date Recorded Within the past 12 months, y ou worried that your food would run out before you got the money to buy more. Never true 12/02/19 23 Within the past 12 months, t he food you bought just didn't last and you didn't have money to get more. Never true 12/01/2022 PRAPARE - Transportation Answer Date Re corded In the past 12 months, has l ack of transportation kept you from medical appointments or from getting medications? No 11/14 In the past 12 months, has l ack of transportation kept you from meetings, work, or from getting things needed for daily living? No 12/01/2022 Housing Stability Vital Sign Answer Alok e Recorded In the last 12 months, was t here a time when you were not able to pay the mortgage or rent on time? No 12/01/2022 In the last 12 months, how many places have you lived? 1 12/01/2022 In the last 12 months, was t here a time when you did not have a steady place to sleep or slept in a residential (including now)? No 12/01/2022 Comments Unknown Sex and Gender Information Value Date Recorded Sex Assigned at Not on file Legal Sex Female 6:54 PM EDT Gender Identity Not on file Sexual Orientation Not on file COVID-19 Exposure Response Date Recorded In the last 10 days, have yo u been in contact with someone who was confirmed or suspected to have Coronavirus/COVID-19? No / Unsure 12/01/2022 10:02 AM EDT documented as of this encounter Functional Status * Audit-C Score Answer Date of Assessment Author 4 12/01/2022 10:01 AM EDT Meenut, Generic * Q1: How often do you have a drink containing alcohol? Answer Date of Assessment Author 4 or more times a week 12/01/2022 10:01 AM EDT M nicohart, Generic * Q2: How many drinks containing alcohol do you have on a typical day when you are drinking? Answer Date of Assessment Author 1 or 2 12/01/2022 10:01 AM EDT Dariuszhart, Generic * Q3: How often do you have six or more drinks on one occasion? Answer Date of Assessment Author Never 12/01/2022 10:01 AM EDT Mycyossit, Generic documented as of this encounter Plan of Treatment Upcoming Encounters Date Type Department Care Team (Late st Contact Info) Description 01/23/2025 8:30 AM EDT Office Visit [facility] [place] [facility] [address] [facility] 110 [place] [address] Flaco Resendiz MD [address] [facility] 110 [place] [address] documented as of this encounter Visit Diagnoses Not on filedocumented in this encounter Care Teams Fleet Technician Relationship Specialty Start Date End Date Falco Resendiz MD [address] [facility] 110 [place] [address] PCP - ACO Reach 09/07/22 Flaco Resendiz MD [address] [facility] 110 [place], [place] [phone] PCP - General Internal Medicine 09/27/22 Iris Luciano, RN [address] [facility] [address] Clinical Advocate Family Medicine 05/23/24 07/04/24 Zoraida Tabares LPN [address] [facility] 110 [place] [address] 07/04/24 documented as of this encounter
--- OUTSIDE RECORDS SUMMARY | 2025-01-16 09:25 | XMS_ITS | Encounter Summary ---
Author Organization [facility] Address [address] [place] [address] Care Team Providers Care Account Consultant Name Role Phone Flaco Resendiz MD Unavailable [phone] Flaco Resendiz MD Primary Care Provider [phone] Iris Luciano RN Unavailable [phone] Zoraida Tabares LPN Unavailable Encounter Details Date Type Department Care Team (Late st Contact Info) Description 02/12/2024 Abstract [facility] [place] [facility] 112 [facility] 110 [place] [phone] Flaco Resendiz MD 112 [facility] 110 [place] [address] Social History Tobacco Use Types [...] and Family Not on file 01/04/2024 Attends Shinto Services Not on file 01/03 Active Member [...] and heating? Not hard at all 01/01/2023 [facility] [place] of Occupat ional Health - Occupational Stress [...] any time in the past 12 m [facility], were you homeless or living in a mcc (including now)? No 01/04/2024 Comments Unknown Sex [...] Visit [facility] [place] [facility] [address] [facility] [address] [place] [address] Flaco Resendiz MD [address] [facility] [address] [place] [address] documented as of this encounter Visit Diagnoses Not on filedocumented in this encounter Care Teams Account Consultant Relationship Specialty Start Date End Date Flaco Resendiz MD [address] [facility] 110 [place] [address] PCP - ACO Reach 09/07/22 Flaco Resendiz MD [address] [facility] 110 [place] [address] PCP - General Internal Medicine 09/27/22 Iris Luciano, RN [address] [place] [address] Clinical Advocate Family Medicine 05/23/24 07/04/24 Zoraida Tabares LPN [address] [facility] 110 [place] [address] 07/04/24 documented as of this encounter
--- OUTSIDE RECORDS SUMMARY | 2025-01-16 09:25 | XMS_ITS | Encounter Summary ---
Author Organization [facility] Address [address] [place] [address] Care Team Providers Care Land Surveyor Manager Name Role Phone Flaco Resendiz MD Unavailable [phone] Flaco Resendiz MD Primary Care Provider [phone] Iris Luciano RN Unavailable Zoraida Tabares LPN Unavailable Encounter Details Date Type Department Care Team (Late st Contact Info) Description 02/26/2023 Orders Only [facility] [place] [facility] [address] [facility] 110 [place] [phone] A, Unknown Practice [address] [place] [address] Social History Tobacco Use Types Packs/Day Years [...] or ex-partner? No 01/01/2023 Social Connection and Isolat ion Panel [NHANES] Answer Date Recorded In a typical week, how many times do you talk on the phone with family, friends, or neighbors? More than three times a week 01/01/2023 How often do you get togethe r with friends or relatives? Once a week 01/01/2023 How often do you attend chur or temple services? Never 01/01/2023 Do you belong to any clubs o r organizations such as mosque groups, unions, fraternal or athletic groups, or school groups? No 01/01/2023 How often do you attend meet ings of the clubs or organizations you belong to? Never 01/01/2023 Are you , , di vorced, , never , or living with a partner? 01/01/2023 AUDIT-C Answer Date Recorded Q1: How often [...] and heating? Not hard at all 01/01/2023 [facility] of Occupat ional Health - Occupational Stress [...] exercise (like a brisk walk)? 0 days 01/01/2023 On average, how many minutes do you engage in exercise at this level? 0 min 01/01/2023 Hunger Vital Sign Answer Date Recorded Within [...] place to sleep or slept in a retirement (including now)? No 01/01/2023 Comments Unknown Sex and Gender Information Value Date Recorded Sex Assigned at Not on file Legal Sex Female 6:54 PM EDT Gender Identity Not on file Sexual Orientation Not on file documented as of this encounter Plan of Treatment Upcoming Encounters Date Type Department Care Team (Late st Contact Info) Description 01/23/2025 8:30 AM EDT Office Visit [facility] [address] [facility] 110 [place] [address] Flaco Resendiz MD [address] [facility] 110 [place] [address] documented as of this encounter Procedures Procedure Name Priority Date/Time Associated Diagnosis Comments SCANNED LABS Routine 02/23/2023 7:54 AM EST documented in this encounter Results * SCANNED LABS (02/23/2023 7:54 AM EST) us Unknown Practice A LAB CHG PERFORMABLES Final Re sult documented in this encounter Visit Diagnoses Not on filedocumented in this encounter Care Teams Land Surveyor Manager Relationship Specialty Start Date End Date Flaco Resendiz MD [address] [facility] 110 [place] [address] PCP - ACO Reach 09/07/22 Flaco Resendiz MD [address] [facility] [address] [place] [address] PCP - General Internal Medicine 09/27/22 Iris Luciano, LEE [address] [place] [address] Clinical Advocate Family Medicine 05/23/24 07/04/24 Zoraida Tabares LPN [address] [facility] 110 [place] [address] 07/04/24 documented as of this encounter
--- OUTSIDE RECORDS SUMMARY | 2025-01-16 09:25 | XMS_ITS | Encounter Summary ---
Author Organization [facility] Address [address] [place] [address] Care Team Providers Care Milieu Therapist Name Role Phone Flaco Resendiz MD Unavailable [phone] Flaco Resendiz MD Primary Care Provider [phone] Iris Luciano RN Unavailable [phone] Zoraida Tabares LPN Unavailable Encounter Details Date Type Department Care Team (Late st Contact Info) Description 04/25/2023 Abstract [facility] [place] [facility] 112 [facility] 110 [place] [phone] Flaco Resendiz MD 112 [facility] 110 [place] [address] Social History Tobacco Use Types Packs/Day Years Used Date Smoking Tobacco: Former Cigarettes Q uit: 09/25/2018 Smokeless Tobacco: Never Alcohol Use Standard Drinks/Week Comments Never 0 (1 standard drink = 0.6 oz pur e alcohol) Humiliation, Afraid, Rape, and Kick questionnair e [...] How often do you attend chur or restorationism services? Never 01/01/2023 Do you belong to any clubs o r organizations such as scientologist groups, unions, fraternal or athletic groups, or [...] and heating? Not hard at all 01/01/2023 [facility] of Occupat ional Health - Occupational [...] in a jail (including now)? No 01/01/2023 Comments Unknown Sex [...] Visit [facility] [place] [facility] [address] [facility] [address] [place] [address] Flaco Resendiz MD [address] [facility] [address] [place] [address] documented as of this encounter Visit Diagnoses Not on filedocumented in this encounter Care Teams Milieu Therapist Relationship Specialty Start Date End Date Flaco Resendiz MD [address] [facility] [address] [place] [address] PCP - ACO Reach 09/07/22 Flaco Resendiz MD [address] [facility] 110 [place] [address] PCP - General Internal Medicine 09/27/22 Iris Luciano, RN [address] [place] [address] Clinical Advocate Family Medicine 05/23/24 07/04/24 Zoraida Tabares LPN 112 [facility] 110 [place] [address] 07/04/24 documented as of this encounter
--- OUTSIDE RECORDS SUMMARY | 2025-01-16 09:25 | XMS_ITS | Encounter Summary ---
Author Organization [facility] Address [address] [place] [address] Care Team Providers Care Bar Pointer Name Role Phone Flaco Resendiz MD Unavailable Flaco Resendiz MD Primary Care Provider [phone] Zoraida Tabares LPN Unavailable Reason for Visit * Reason Comments Med Refill Encounter Details Date Type Department Care Team (Late st Contact Info) Description 01/05/2025 Refill [facility] [place] [facility] [address] [facility] 110 [place] [address] Flaco Resendiz MD [address] [facility] 110 [place] [address] Panlobular emphysema (HCC); COPD with acute exacerbation (HCC) Social History Tobacco Use Types Packs/Day Years [...] often do you attend chur ch or caodaism services? Never 03/17/2024 Do you belong to any clubs o r organizations such as latter day groups, unions, fraternal or athletic groups, or [...] Recorded Patient Health Questionnaire-2 Score 0 11/07/2024 [facility] of Occupat ional Health - Occupational Stress [...] place to sleep or slept in a senior care (including now)? No 01/01/2023 Housing Stability Vital [...] in the past 12 m [facility], were you homeless or living in a senior care (including now)? No 03/17/2024 Comments Unknown Sex and Gender Information Value Date Recorded Sex Assigned at Not on file Legal Sex Female 6:54 PM EDT Gender Identity Not on file Sexual Orientation Not on file documented as of this encounter Plan of Treatment Upcoming Encounters Date Type Department Care Team (Late st Contact Info) Description 01/23/2025 8:30 AM EDT [facility] [address] [facility] 110 [place] [address] Flaco Resendiz MD [address] [facility] 110 [place] [address] documented as of this encounter Visit Diagnoses Diagnosis Panlobular emphysema (HCC) Other emphysema COPD with acute exacerbation (HCC) documented in this encounter Care Teams Bar Pointer Relationship Specialty Start Date End Date Flaco Resendiz MD [address] [facility] 110 [place] [address] PCP - ACO Reach 09/07/22 Flaco Resendiz MD [address] [facility] 110 [place] [address] PCP - General Internal Medicine 09/27/22 Zoraida Tabares LPN [address] [facility] 110 [place] [address] 07/04/24 documented as of this encounter
--- OUTSIDE RECORDS SUMMARY | 2025-01-16 09:25 | XMS_ITS | Encounter Summary ---
Author Organization [facility] Address [address] [place] [address] Care Team Providers Care Engine House Helper Name Role Phone Flaco Resendiz MD Unavailable [phone] Flaco Resendiz MD Primary Care Provider Iris Luciano RN Unavailable Zoraida Tabares LPN Unavailable Encounter Details Date Type Department Care Team (Late st Contact Info) Description 01/11/2023 Abstract [facility] [place] [facility] 112 [facility] 110 [place] [phone] Flaco Resendiz MD 112 [facility] 110 [place] [address] Social History Tobacco Use Types [...] 01/01/2023 How often do you attend chur ch or baptist services? Never 01/01/2023 Do you belong to any clubs o r organizations such as taoism groups, unions, fraternal or athletic groups, or [...] and heating? Not hard at all 01/01/2023 [facility] of Occupat ionny Health - Occupational Stress Questionnaire Answer Date [...] No 01/01/2023 Housing Stability Vital Sign Answer Laok e Recorded In the last 12 months, [...] to sleep or slept in a senior living (including now)? No 01/01/2023 Comments Unknown Sex [...] EDT Office Visit [facility] [address] [facility] [address] [place] [address] Flaco Resendiz MD [address] [facility] [address] [place] [address] documented as of this encounter Visit Diagnoses Not on filedocumented in this encounter Care Teams Engine House Helper Relationship Specialty Start Date End Date Flaco Resendiz MD [address] [facility] [address] [place] [address] PCP - ACO Reach 09/07/22 Flaco Resendiz MD [address] [facility] [address] [place] [address] PCP - General Internal Medicine 09/27/22 Iris Luciano, RN [address] [place] [address] Clinical Advocate Family Medicine 05/23/24 07/04/24 Zoraida Tabares LPN 112 [facility] 110 [place] [address] 07/04/24 documented as of this encounter
--- OUTSIDE RECORDS SUMMARY | 2025-01-16 09:25 | XMS_ITS | Encounter Summary ---
Author Organization [facility] Address [address] [place] [address] Care Team Providers Care Direct Chill Caster Name Role Phone Flaco Resendiz MD Unavailable [phone] Flaco Resendiz MD Primary Care Provider [phone] Iris Luciano RN Unavailable Zoraida Tabares LPN Unavailable Encounter Details Date Type Department Care Team (Late st Contact Info) Description 01/09/2023 Abstract [facility] [place] [facility] 112 [facility] 110 [place] [phone] Flaco Resendiz MD 112 [facility] 110 [place] [address] Social History Tobacco Use Types [...] often do you attend chur ch or jew services? Never 01/01/2023 Do you belong to [...] at all 01/01/2023 [facility] Occupat ionak Health - Occupational Stress Questionnaire Answer Date [...] slept in a residential (including now)? No 01/01/2023 Comments Unknown Sex [...] Office Visit [facility] [address] [facility] [address] [place] [address] Flaco Resendiz MD [address] [facility] [address] [place] [address] documented as of this encounter Visit Diagnoses Not on filedocumented in this encounter Care Teams Direct Chill Caster Relationship Specialty Start Date End Date Flaco Resendiz MD [address] [facility] [address] [place] [address] PCP - ACO Reach 09/07/22 Flaco Resendiz MD [address] [facility] [address] [place] [address] PCP - General Internal Medicine 09/27/22 Iris Luciano, RN [address] [place] [address] Clinical Advocate Family Medicine 05/23/24 07/04/24 Zoraida Tabares LPN 112 [facility] 110 [place] [address] 07/04/24 documented as of this encounter
--- OUTSIDE RECORDS SUMMARY | 2025-01-16 09:25 | XMS_ITS | Encounter Summary ---
Author Organization [facility] Address [address] [place] [address] Care Team Providers Care Pe Manager Name Role Phone Flaco Resendiz MD Unavailable Flaco Resendiz MD Primary Care Provider [phone] Iris Luciano RN Unavailable Zoraida Tabares LPN Unavailable Encounter Details Date Type Department Care Team (Late st Contact Info) Description 02/12/2024 Abstract [facility] [place] [facility] [address] [facility] [address] [place] [id number] Unallocated, Sil Provider, [address] [place], [place] [id number] Social History Tobacco Use Types Packs/Day Years [...] and Family Not on file 01/04/2024 Attends Orthodoxy Services Not on file 01/03 Active Member [...] and heating? Not hard at all 01/01/2023 [facility] [place] [facility] - Occupational Stress [...] place to sleep or slept in a [place] facility (including now)? No 01/01/2023 Housing Stability Vital Sign Answer Alok e Recorded In the last 12 months, was t here a time when you were not able to pay the mortgage or rent on time? No 01/04/2024 Number of Times Moved in the Last Year Not on fi le 01/04/2024 At any time in the past 12 m [facility], were you homeless or living in a [place] facility (including now)? No 01/04/2024 Comments Unknown Sex [...] Visit [facility] [place] [facility] [address] [facility] [address] [place] [address] Flaco Resendiz MD [address] [facility] [address] [place] [address] documented as of this encounter Visit Diagnoses Not on filedocumented in this encounter Care Teams Pe Manager Relationship Specialty Start Date End Date Flaco Resendiz MD [address] [facility] [address] [place] [address] PCP - ACO Reach 09/07/22 Flaco Resendiz MD [address] [facility] [address] [place] [address] PCP - General Internal Medicine 09/27/22 Iris Luciano, RN [address] [place] [address] Clinical Advocate Family Medicine 05/23/24 07/04/24 Zoraida Tabares LPN [address] [facility] [address] [place] [address] 07/04/24 documented as of this encounter
--- OUTSIDE RECORDS SUMMARY | 2025-01-16 09:25 | XMS_ITS | Encounter Summary ---
Author Organization [facility] Address [address] [place] [address] Care Team Providers Care Md Urologist Name Role Phone Flaco Resendiz MD Unavailable [phone] Flaco Resendiz MD Primary Care Provider Iris Luicano RN Unavailable Zoraida Tabares LPN Unavailable Encounter Details Date Type Department Care Team (Late st Contact Info) Description 05/21/2023 Orders Only [facility] [place] [facility] [address] [facility] [address] [place] [id number] A, Unknown Practice [address] [place] [address] Social History Tobacco Use Types [...] 01/01/2023 How often do you attend [employer] or rastafarian services? Never 01/01/2023 Do you belong to any clubs o r organizations such as synagogue groups, unions, fraternal or athletic groups, or [...] and heating? Not hard at all 01/01/2023 [facility] [...] place to sleep or slept in a detention (including now)? No 01/01/2023 Comments Unknown Sex and Gender Information Value Date Recorded Sex Assigned at Not on file Legal Sex Female 6:54 PM EDT Gender Identity Not on file Sexual Orientation Not on file documented as of this encounter Plan of Treatment Upcoming Encounters Date Type Department Care Team (Late st Contact Info) Description 01/23/2025 8:30 AM EDT Office Visit [facility] [place] [facility] [address] [facility] [address] [place] [address] Flaco Resendiz MD [address] [facility] [address] [place] [address] documented as of this encounter Procedures Procedure Name Priority Date/Time Associated Diagnosis Comments SCANNED LABS Routine 05/18/2023 10:46 AM EST documented in this encounter Results * SCANNED LABS (05/18/2023 10:46 AM EST) us Unknown Practice A LAB CHG PERFORMABLES Final Re sult documented in this encounter Visit Diagnoses Not on filedocumented in this encounter Care Teams Md Urologist Relationship Specialty Start Date End Date Flaco Resendiz MD [address] [facility] [address] [place] [address] PCP - ACO Reach 09/07/22 Flaco Resendiz MD [address] [facility] [address] [place] [address] PCP - General Internal Medicine 09/27/22 Iris Luciano, LEE [address] [facility] [place] [address] Clinical Advocate Family Medicine 05/23/24 07/04/24 Zoraida Tabares LPN [address] [facility] [address] [place] [address] 07/04/24 documented as of this encounter
--- OUTSIDE RECORDS SUMMARY | 2025-01-16 09:26 | XMS_ITS | CCD ---
Author Organization [facility] Care Team Providers Care Sheet Rock Installation Helper Name Role Phone MIRI ., DR OLENA [...] Unavailable LISSETTE, DR YI Primary Care Unavailable REESNDIZ, DR YI Attending Unavailable RESENDIZ, DR YI [...] Unavailable Flaco Resendiz MD Primary Care Provider Zoraida Tabares LPN Unavailable Unavailable Zoraida Tabares LPN Unavailable FLACO RESENDIZ Attending Unavailable FLACO RESENDIZ Attending Unavailable FLACO RESENDIZ Attending Unavailable FLACO RESENDIZ Attending Unavailable Allergies Allergy Classification Reported Allergen(s) Allergy Type Date of Onset Reaction(s) Facility (11 sources) Gentamicin Drug Allergy 02-28-2021 Unknown [facility] Medications Current Medications Medication Drug Class(es) Dates Sig (Normalized) Sig (Original) [id number] 200 actuat albuterol 0.09 mg/actuat metered dose inhaler (20 sources) beta2-Adrenergic Agonist Start: 08-14-2024 take 2 puff(s) by inhalation every six hours for wheezing Ventolin HFA 108 (90 Base) MCG/ACT inhaler Indications: Chronic obstructive pulmonary disease, unspecified COPD type (HCC) INHALE 2 PUFFS EVERY 6 (SIX) HOURS IF NEEDED FOR WHEEZING OR SHORTNESS OF BREATH 18 g 3 08/14/2024 Active Start: 12-21-2023 End: 03-20-2024 albuterol (2.5 MG/3ML) 0.083 % nebulizer solution Indications: Panlobular emphysema (HCC) , COPD with acute exacerbation (HCC) Take 3 mL [...] 03/24/2022 Active ALPRAZolam 0.5 mg oral tablet (13 sources) Benzodiazepine Start: 10-09-2024 take 1 tablet by mouth three times daily as needed for anxiety ALPRAZolam (Xanax) 0.5 MG tablet Indications: Generalized anxiety disorder Take 1 tablet (0.5 mg) by mouth 3 (three) times a day as needed for anxiety 90 tablet 3 10/09/2024 Active Start: 08-27-2023 End: 04-11-2024 take 1 tablet by mouth three times daily as needed for anxiety ALPRAZolam (Xanax) 0.5 MG tablet Indications: Generalized anxiety disorder (CMS/HCC) Take 1 tablet (0.5 mg) by mouth 3 (three) times a day as needed for anxiety 90 tablet 3 04/11/2024 Active Start: 05-07-2023 take 1 tablet by ravin th three times daily as needed for anxiety ALPRAZolam (Xanax) 0.5 MG tablet Indications: Generalized anxiety disorder (CMS/HCC) Take 1 tablet (0.5 mg) by mouth 3 (three) times a day as needed for anxiety 90 tablet 0 05/07/2023 Active amLODIPine 5 mg oral tablet (11 sources) Dihydropyridine Calcium Channel Ramirez Start: 10-22-2023 take 1 tablet by mouth once daily amLODIPine (Norvasc) 5 MG tablet Indications: Essential hypertension TAKE ONE TABLET BY MOUTH DAILY [...] mg by mouth in the morning. Active cefdinir 300 mg oral capsule (2 sources) Cephalosporin Antibacterial Start: End: take 1 capsule by mouth in the morning cefdinir (Omnicef) 300 MG capsule Indications: Acute non-recurrent sinusitis, unspecified location Take 1 capsule (300 mg) by mouth in the morning and 1 capsule (300 mg) before bedtime. Do all this for 7 days. 14 capsule 11/07/2024 11/14/2024 Active 30 actuat fluticasone furoate 0.1 mg/actuat / umeclidinium 0.0625 mg/actuat / vilanterol 0.025 mg/actuat dry powder inhaler (15 sources) Anticholinergic, Corticosteroid, beta2-Adrenergic Agonist Start: 025 End: take 1 puff(s) by inhalation once daily Fluticasone-Umecli din-Vilant (Trelegy Ellipta) 100-62.5-25 MCG/ACT aerosol powder Indications: Panlobular emphysema (HCC) Inhale 1 puff 1 (one) time each day at the same time 3 each 3 11/07/2024 02/05/2025 Active Start: 08-01-2023 take 1 puff(s) by inhalation once daily Euldjohkwjx-Hndtotmuk-Eevbds (Trelegy Ellipta) 100-62.5-25 MCG/ACT aerosol powder Indications: Panlobular emphysema (CMS/HCC) Inhale 1 puff 1 (one) time each day at the same time 3 each 3 08/01/2023 Active take 1 puff(s) by inhalation once daily Luwnrovhocd-Abphbcbcn-Vhlmci (Trelegy Ellipta) 100-62.5-25 MCG/ACT aerosol powder Inhale 1 puff 1 (one) time each day at the same time. 0 Active ibuprofen 200 mg oral tablet (11 sources) Nonsteroidal Anti-inflammatory Drug take 1 tablet by mouth every six hours as needed ibuprofen 200 MG tablet Take 200 mg by mouth every 6 (six) hours if needed. Active levothyroxine sodium 0.088 mg oral tablet (11 sources) l-Thyroxine Start: 2023 End: 2024 take 1 tablet by mouth once daily levothyroxine (Synthroid, Levoxyl) 88 MCG tablet Indications: Pure hypercholesterolemia , Postablative hypothyroidism TAKE ONE TABLET BY MOUTH DAILY 90 tablet 10/09/2024 Active take 1 tablet by mouth before me altime levothyroxine (Synthroid, Levoxyl) 88 MCG tablet Take 88 mcg by mouth in the morning. Take before meals. 0 Active losartan potassium 50 mg oral tablet (11 sources) Angiotensin 2 Receptor Ramirez Start: 04-18-2024 take 1 tablet by mouth twice daily losartan (Cozaar) 50 MG tablet Indications: Essential hypertension TAKE ONE TABLET BY MOUTH TWICE A DAY 180 tablet 3 04/18/2024 Active Start: 04-05-2023 take 1 tablet by ravin th twice daily losartan (Cozaar) 50 MG tablet Indications: Essential hypertension (CMS/HCC) TAKE ONE TABLET BY MOUTH TWICE A DAY 200 tablet 3 04/05/2023 Active meclizine hydrochloride 12.5 mg oral tablet (3 sources) Antiemetic Start: 11-07-2024 take 1 tablet by mouth three times daily as needed for dizziness meclizine (Antivert) 12.5 MG tablet Indications: Active cochlear Meniere's disease, unspecified laterality Take 1 tablet (12.5 mg) by mouth 3 (three) times a day as needed for dizziness 30 tablet 3 11/07/2024 Active Start: 11-07-2024 take 1 tablet by ravin th three times daily as needed for dizziness meclizine (Antivert) 12.5 MG tablet Indications: Active cochlear Meniere's disease, unspecified laterality Take 1 tablet (12.5 mg) by mouth 3 (three) times a day as needed for dizziness 30 tablet 3 11/07/2024 Active Start: 03-24-2022 take 1 tablet by ravin th three times daily as needed meclizine (Antivert) 12.5 MG tablet Take 12.5 mg by mouth 3 (three) times a day as needed. 0 03/24/2022 Active Multiple Vitamin (multivitamin) capsule (11 sources) take 1 capsule by mouth in the morning Multiple Vitamin (multivitamin) capsule Take 1 capsule by mouth in the morning. Active take 1 capsule by mouth in the m orning Multiple Vitamin (multivitamin) capsule Take 1 capsule by mouth in the morning. 0 Active OXYGEN-HELIUM IN (11 sources) OXYGEN-HELIUM IN Inhale 1 (one) time each day at the same time. Active OXYGEN-HELIUM IN Inhale 1 (one) time each day at the same time. 0 Active polyethylene glycol 3350 40858 mg powder for oral solution (11 sources) Osmotic Laxative polyethylene gl ycol, PEG, 3350 (MiraLax) 17 GM/SCOOP powder Take 17 g by mouth 1 (one) time. Active sodium chloride 1000 mg oral tablet (11 sources) Start: 03-20-2023 End: 05-23-2025 take 1 tablet by mouth once daily sodium chloride 1 g tablet Indications: Hyponatremia Take 1 tablet (1 g) by mouth Daily 100 tablet 3 04/18/2024 05/23/2025 Active Problems Active Problems Problem Classification Problem Date Documented Da te Episodic/Chronic Adjustment disorders (11 sources) Grief finding; Translations: [Adjustment disorder with depressed mood] Onset: 10-25-2022 10-25-2022 Chronic Anxiety disorders (14 sources) Generalized anxiety disorder; Translations: [Generalized anxiety disorder] Onset: 09-07-2021 10-25-2022 Chronic Chronic obstructive pulmonary disease and bronchiectasis (20 sources) Chronic obstructive pulmonary disease, unspecified; Translations: [Chronic obstructive pulmonary disease with (acute) exacerbation] Onset: 09-07-2021 Resolved: 06-01-2023 10-25-2022 Chronic Complications of surgical procedures or medical care (15 sources) Postablative hypothyroidism; Translations: [Postprocedural hypothyroidism] Onset: 10-25-2022 10-25-2022 Chronic Conditions associated with dizziness or vertigo (13 sources) Active cochlear Meniere's disease; Translations: [Meniere's disease, unspecified ear] Onset: 10-25-2022 10-25-2022 Chronic Disorders of lipid metabolism (20 sources) Pure hypercholesterolemi a; Translations: [Pure hypercholesterolemi a, unspecified] Onset: 10-25-2022 10-25-2022 Chronic Essential hypertension (16 sources) Essential (primary) hypertension; Translations: [Essential hypertension] Onset: 09-07-2021 10-25-2022 Chronic Miscellaneous mental health disorders (10 sources) Chronic insomnia; Translations: [Psychophysiologic insomnia] Onset: 06-01-2023 06-01-2023 Chronic Mood disorders (12 sources) Major depressive disorder, single episode, unspecified; Translations: [Atypical depressive disorder] Onset: 09-07-2021 10-25-2022 Chronic Nutritional deficiencies (11 sources) Vitamin D deficiency; Translations: [Vitamin D deficiency, unspecified] Onset: 10-25-2022 10-25-2022 Chronic Osteoarthritis (11 sources) Degenerative joint disease involving multiple joints; Translations: [Polyosteoarthritis , unspecified] Onset: 10-25-2022 10-25-2022 Chronic Osteoporosis (11 sources) Disuse osteoporosis; Translations: [Other osteoporosis without current pathological fracture] Onset: 10-25-2022 10-25-2022 Chronic Other upper respiratory infections (2 sources) Acute sinusitis; Translations: [Acute sinusitis, unspecified] 11-07-2024 Episodic Pneumonia (except that caused by tuberculosis or sexually transmitted disease) (1 source) Pneumonia (except that caused by tuberculosis or sexually transmitted disease); Translations: [PNEUMONIA D/T CORONAVIRUS DIS 2019] Onset: 09-07-2021 Respiratory failure; insufficiency; arrest (adult) (2 sources) Acute and chronic respiratory failure with hypoxia; Translations: [Dependence on supplemental oxygen] Onset: 09-07-2021 Chronic Spondylosis; intervertebral disc disorders; other back problems (11 sources) Lumbar spondylosis; Translations: [Spondylosis without myelopathy or radiculopathy, lumbar region] Onset: 10-25-2022 10-25-2022 Chronic Substance-related disorders (20 sources) Nicotine dependence; Translations: [Nicotine dependence, cigarettes, uncomplicated] Onset: 10-25-2022 10-25-2022 Chronic Viral infection (3 sources) COVID-19; Translations: [COVID-19] Onset: 08-31-2021 Past or Other Problems Problem Classification Problem Date Documented Date Episodic/Chronic Fluid and electrolyte disorders (20 sources) Hypo-osmolality and hyponatremia; Translations: [Hyponatremia] Onset: 09-07-2021 Episodic Other aftercare (1 source) Other shelter (current) drug therapy; Translations: [OTH SHELTER CURRENT DRUG THERAPY] Onset: 09-07-2021 Episodic Other connective tissue disease (1 source) Muscle weakness (generalized); Translations: [MUSCLE WEAKNESS GENERALIZED] Onset: 09-07-2021 Episodic Other fractures (11 sources) Compression fracture of vertebral column; Translations: [Collapsed vertebra, not elsewhere classified, site unspecified, initial encounter for fracture] Onset: 10-25-2022 10-25-2022 Episodic Other nervous system disorders (11 sources) Abnormal gait; Translations: [Unspecified abnormalities of gait and mobility] Onset: 10-25-2022 10-25-2022 Episodic Respiratory failure; insufficiency; arrest (adult) (11 sources) Hypoxemic respiratory failure; Translations: [Respiratory failure, unspecified with hypoxia] Onset: 10-25-2022 10-25-2022 Episodic Thyroid disorders (16 sources) Hypothyroidism, unspecified; Translations: [Acquired hypothyroidism] Onset: 09-07-2021 Resolved: 06-01-2023 10-25-2022 Chronic Results Test Name Value Interpretation Reference Range Facility ALL BASIC METABOLIC PANELon 10-10-2024 Anion gap [Moles/Vol] 8.6 mmol/L [facility] Calcium [Mass/Vol] 9.4 mg/dL 8.5 - 10. 1 mg/dL [facility] Chloride [Moles/Vol] 99 mmol/L 98 - 107 mmol/L [facility] CO2 [Moles/Vol] 33.4 mmol/L High 21.0 - 32.0 mmol/L [facility] Creatinine [Mass/Vol] 0.51 mg/dL Low 0.55 - 1.02 mg/dL [facility] GFR/1.73 sq M.predicted CKD-EPI (S/P/Bld) [Vol rate/Area] >60 >=60 mL/min/1.73m [address] [facility] Glucose [Mass/Vol] 88 mg/dL 74 - 106 mg/dL [facility] Interpretation and review of laboratory results Abnormal [facility] Potassium [Moles/Vol] 5 mmol/L 3.5 - 5.1 mmol/L [facility] Sodium [Moles/Vol] 136 mmol/L 136 - 145 mmol/L [facility]H EGFR-NON AF ZAMBIAN >60 >=60 mL/min/1.73m [address] [facility] Urea nitrogen [Mass/Vol] 21 mg/dL High 7.0 - 18.0 mg/dL [facility] Urea nitrogen/Creatinine [Mass ratio] 41.2 mg/mg [facility] e ALL CBC WITH AUTO DIFFon BASOPHILS ABSOLUTE AUTO [address] [facility] Basophils/100 WBC (Bld) 0.6 % 0.2 - 2.0 % [facility] Eosinophils/100 WBC (Bld) 2.5 % 0.9 - 7.0 % [facility] Erythrocyte distribution width (RBC) [Ratio] 12.8 % 11.0 - 15.0 % [facility] Hematocrit (Bld) [Volume fraction] 37.3 % 36.0 - 48.0 % [facility] e Hemoglobin (Bld) [Mass/Vol] 12.1 g/dL 12.0 - 16.0 g/dL [facility] IMMATURE GRANULOCYTES ABS AUTO 0.[address] [facility] Immature granulocytes/100 WBC (Bld) 0.2 % 0.0 - 0.5 % [facility] Interpretation and review of laboratory results [facility] LYMPHOC[facility]TES ABSOLUTE AUTO 1.[address] [facility] Lymphocytes/100 WBC (Bld) 36.3 % 20.5 - 60.0 % [facility] MCH (RBC) [Entitic mass] 29.7 pg 26.7 - 34.[address] [facility] MCHC (RBC) [Mass/Vol] 32.4 g/dL 29.9 - 35.2 g/dL [facility] MCV (RBC) [Entitic vol] 91.6 fL 81.0 - 99.[address] [facility] MONOCYTES ABSOLUTE AUTO 0.[address] [facility] Monocytes/100 WBC (Bld) 11.1 % 1.7 - 12.0 % [facility] NEUTROPHILS ABSOLUTE AUTO 2.[address] [facility] Neutrophils/100 WBC (Bld) 49.3 % 43.0 - 75.0 % [facility] Platelet mean volume (Bld) [Entitic vol] 8.7 fL Low 9.5 - 13.[address] [facility] EO # 0.1 [facility]T [facility] RBC 4.07 Low [facility] WBC 5.2 [facility] ALL BASIC METABOLIC PANELon 05-18-2023 Anion gap [Moles/Vol] 9.7 mmol/L [facility] Calcium [Mass/Vol] 9.2 mg/dL 8.5 - 10. 1 mg/dL [facility] Chloride [Moles/Vol] 99 mmol/L 98 - 107 mmol/L [facility] CO2 [Moles/Vol] 31.4 mmol/L 21.0 - 32.0 mmol/L [facility] Creatinine [Mass/Vol] 0.63 mg/dL 0.55 - 1.02 mg/dL [facility] GFR/1.73 sq M.predicted CKD-EPI (S/P/Bld) [Vol rate/Area] >60 60 - PINF [facility] Glucose [Mass/Vol] 94 mg/dL 74 - 106 mg/dL [facility] Potassium [Moles/Vol] 4.1 mmol/L 3.5 - 5.1 mmol/L [facility] Sodium [Moles/Vol] 136 mmol/L 136 - 145 mmol/L [facility] EGFR-NON AF ZAMBIAN >60 60 - PINF [facility] Urea nitrogen [Mass/Vol] 18.0 mg/dL 7.0 - 18.0 mg/dL [facility] Urea nitrogen/Creatinine [Mass ratio] 28.6 mg/mg [facility] PROF CHEM 8 (BAS METB)on Anion gap [Moles/Vol] 6.9 mmol/L Normal [facility] Comment on above: Performed By: #### B MP #### [facility] [address] [address] [address] Darlene Lucero Calcium [Mass/Vol] 9.1 mg/dL Normal 8.5-10.1 [facility] Comment on above: Performed By: #### B MP #### [facility] [address] [address] [address] Darlene Lucero Chloride [Moles/Vol] 96 mmol/L Critically low 98-107 [facility] Comment on above: Performed By: #### B MP #### [facility] [address] [address] [address] Darlene Lucero CO2 [Moles/Vol] 33.6 mmol/L Critically high 21.0-32.0 [facility] Comment on above: Performed By: #### B MP #### [facility] [address] [address] [address] Darlene Lucero Creatinine [Mass/Vol] 0.69 mg/dL Normal 0.55-1.02 [facility] Comment on above: Performed By: #### B MP #### [facility] [address] [address] [address] Darlene Lucero EGFR-AF ZAMBIAN >60 Normal >=60 [facility] Comment on above: Performed By: #### B MP #### [facility] [address] [address] [address] Darlene Lucero EGFR-NON AF ZAMBIAN >60 Normal >=60 [facility] Comment on above: Performed By: #### B MP #### [facility] [address] [address] [address] Darlene Lucero Glucose [Mass/Vol] 92 mg/dL Normal 74-106 [facility] Comment on above: Performed By: #### B MP #### [facility] [address] [address] [address] Darlene Lucero Potassium [Moles/Vol] 4.5 mmol/L Normal 3.5-5.1 [facility] Comment on above: Performed By: #### B MP #### [facility] [address] [address] [address] Darlene Lucero Sodium [Moles/Vol] 132 mmol/L Critically low 136-145 Th [facility] Comment on above: Performed By: #### B MP #### [facility] [address] [place] [address] Dr. Darlene Lucero Urea nitrogen [Mass/Vol] 18.0 mg/dL Normal 7.0-18.0 [facility] Comment on above: Performed By: #### B MP #### [facility] [address] [place] [address] Dr. Darlene Lucero Urea nitrogen/Creatinine [Mass ratio] 26.1 mg/mg Normal [facility] Comment on above: Performed By: #### B MP #### [facility] [address] [address] [address] Darlene Lucero PROF CHEM 8 (BAS METB)on Anion gap [Moles/Vol] 7.1 mmol/L Normal [facility] Comment on above: Performed By: #### B MP #### [facility] [address] [place] [address] Dr. Darlene Lucero Calcium [Mass/Vol] 9.4 mg/dL Normal 8.5-10.1 [facility] Comment on above: Performed By: #### B MP #### [facility] [address] [place] [address] Dr. Darlene Lucero Chloride [Moles/Vol] 95 mmol/L Critically low 98-107 [facility] Comment on above: Performed By: #### B MP #### [facility] [address] [address] [address] Darlene Lucero CO2 [Moles/Vol] 34.3 mmol/L Critically high 21.0-32.0 [facility] Comment on above: Performed By: #### B MP #### [facility] [address] [place] [address] Dr. Darlene Lucero Creatinine [Mass/Vol] 0.52 mg/dL Critically low 0.55-1.02 [facility] Comment on above: Performed By: #### B MP #### [facility] [address] [place] [address] Dr. Darlene Lucero EGFR-AF ZAMBIAN >60 Normal >=60 [facility] Comment on above: Performed By: #### B MP #### [facility] [address] [place] [address] Dr. Darlene Lucero EGFR-NON AF ZAMBIAN >60 Normal >=60 [facility] Comment on above: Performed By: #### B MP #### [facility] [address] [place] [address] Dr. Darlene Lucero Glucose [Mass/Vol] 111 mg/dL Critically high 74-106 [facility] Comment on above: Performed By: #### B MP #### [facility] [address] [place] [address] Dr. Darlene Lucero Potassium [Moles/Vol] 4.4 mmol/L Normal 3.5-5.1 [facility] Comment on above: Performed By: #### B MP #### [facility] [address] [place] [address] Dr. Darlene Lucero Sodium [Moles/Vol] 132 mmol/L Critically low 136-145 Th [facility] Comment on above: Performed By: #### B MP #### [facility] [address] [place] [address] Dr. Darlene Lucero Urea nitrogen [Mass/Vol] 16.0 mg/dL Normal 7.0-18.0 [facility] Comment on above: Performed By: #### B MP #### [facility] [address] [place] [address] Dr. Darlene Lucero Urea nitrogen/Creatinine [Mass ratio] 30.8 mg/mg Normal [facility] Comment on above: Performed By: #### B MP #### [facility] [address] [place] [address] Dr. Darlene Lucero PROF CHEM 8 (BAS METB)on Anion gap [Moles/Vol] 8.6 mmol/L Normal [facility] Comment on above: Performed By: #### O SMOU #### [facility] [address] [place] [address] Dr. Darlene Lucero Calcium [Mass/Vol] 9.3 mg/dL Normal 8.5-10.1 [facility] Comment on above: Performed By: #### O SMOU #### [facility] [address] [place] [address] Dr. Darlene Lucero Chloride [Moles/Vol] 94 mmol/L Critically low 98-107 [facility] Comment on above: Performed By: #### O SMOU #### [facility] [address] [place] [address] Dr. Darlene Lucero CO2 [Moles/Vol] 33.0 mmol/L Critically high 21.0-32.0 [facility] Comment on above: Performed By: #### O SMOU #### [facility] [address] [place] [address] Dr. Darlene Lucero Creatinine [Mass/Vol] 0.64 mg/dL Normal 0.55-1.02 [facility] Comment on above: Performed By: #### O SMOU #### [facility] [address] [place] [address] Dr. Darlene Lucero EGFR-AF ZAMBIAN >60 Normal >=60 [facility] Comment on above: Performed By: #### O SMOU #### [facility] [address] [place] [address] Dr. Darlene Lucero EGFR-NON AF ZAMBIAN >60 Normal >=60 [facility] Comment on above: Performed By: #### O SMOU #### [facility] [address] [place] [address] Dr. Darlene Lucero Glucose [Mass/Vol] 134 mg/dL Critically high 74-106 T [facility] Comment on above: Performed By: #### O SMOU #### [facility] [address] [place] [address] Dr. Darlene Lucero Potassium [Moles/Vol] 4.6 mmol/L Normal 3.5-5.1 [facility] Comment on above: Performed By: #### O SMOU #### [facility] [address] [place] [address] Dr. Darlene Lucero Sodium [Moles/Vol] 131 mmol/L Critically low 136-145 Th [facility] Comment on above: Performed By: #### O SMOU #### [facility] [address] [place] [address] Dr. Darlene Lucero Urea nitrogen [Mass/Vol] 10.0 mg/dL Normal 7.0-18.0 [facility] Comment on above: Performed By: #### O SMOU #### [facility] [address] [place] [address] Dr. Darlene Lucero Urea nitrogen/Creatinine [Mass ratio] 15.6 mg/mg Normal [facility] Comment on above: Performed By: #### O SMOU #### [facility] [address] [place] [address] Dr. Darlene Lucero PROF CHEM 8 (BAS METB)on Anion gap [Moles/Vol] 5.9 mmol/L Normal [facility] Comment on above: Performed By: #### B MP #### [facility] [address] [place] [address] Dr. Darlene Lucero Calcium [Mass/Vol] 9.0 mg/dL Normal 8.5-10.1 [facility] Comment on above: Performed By: #### B MP #### [facility] [address] [place] [address] Dr. Darlene Lucero Chloride [Moles/Vol] 96 mmol/L Critically low 98-107 [facility] Comment on above: Performed By: #### B MP #### [facility] [address] [place] [address] Dr. Darlene Lucero CO2 [Moles/Vol] 31.5 mmol/L Normal 21.0-32.0 [facility] Comment on above: Performed By: #### B MP #### [facility] [address] [address] [address] Darlene Lucero Creatinine [Mass/Vol] 0.57 mg/dL Normal 0.55-1.02 [facility] Comment on above: Performed By: #### B MP #### [facility] [address] [address] [address] Darlene Lucero EGFR-AF ZAMBIAN >60 Normal >=60 [facility] Comment on above: Performed By: #### B MP #### [facility] [address] [address] [address] Darlene Lucero EGFR-NON AF ZAMBIAN >60 Normal >=60 [facility] Comment on above: Performed By: #### B MP #### [facility] [address] [address] [address] Darlene Lucero Glucose [Mass/Vol] 94 mg/dL Normal 74-106 [facility] Comment on above: Performed By: #### B MP #### [facility] [address] [address] [address] Darlene Lucero Potassium [Moles/Vol] 4.4 mmol/L Normal 3.5-5.1 [facility] Comment on above: Performed By: #### B MP #### [facility] [address] [address] [address] Darlene Lucero Sodium [Moles/Vol] 129 mmol/L Critically low 136-145 [facility] Comment on above: Performed By: #### B MP #### [facility] [address] [address] [address] Darlene Lucero Urea nitrogen [Mass/Vol] 18.0 mg/dL Normal 7.0-18.0 [facility] Comment on above: Performed By: #### B MP #### [facility] [address] [place] [address] Dr. Darlene Lucero Urea nitrogen/Creatinine [Mass ratio] 31.6 mg/mg Normal [facility] Comment on above: Performed By: #### B MP #### [facility] [address] [address] [address] Darlene Lucero PROF 14(COMP METB)on 022 Albumin [Mass/Vol] 3.4 g/dL Normal 3.4-5.0 [facility] Comment on above: Performed By: #### B MP #### [facility] [address] [address] [address] Darlene Lucero Albumin/Globulin [Mass ratio] 0.9 {ratio} Normal [facility] Comment on above: Performed By: #### B MP #### [facility] [address] [place] [address] Dr. Darlene Lucero ALP [Catalytic activity/Vol] 63 U/L Normal 46-116 [facility] Comment on above: Performed By: #### B MP #### [facility] [address] [place] [address] Dr. Darlene Lucero ALT [Catalytic activity/Vol] 16 U/L Normal 14-59 [facility] Comment on above: Performed By: #### B MP #### [facility] [address] [address] [address] Darlene Lucero Anion gap [Moles/Vol] 11.5 mmol/L Normal [facility] Comment on above: Performed By: #### B MP #### [facility] [address] [place] [address] Dr. Darlene Lucero AST [Catalytic activity/Vol] 12 U/L Critically low 15-37 [facility] Comment on above: Performed By: #### B MP #### [facility] [address] [address] [address] Darlene Lucero Bilirubin [Mass/Vol] 0.3 mg/dL Normal 0.2-1.0 [facility] Comment on above: Performed By: #### B MP #### [facility] [address] [address] [address] Darlene Lucero Calcium [Mass/Vol] 8.9 mg/dL Normal 8.5-10.1 [facility] Comment on above: Performed By: #### B MP #### [facility] [address] [address] [address] Darlene Lucero Chloride [Moles/Vol] 96 mmol/L Critically low 98-107 [facility] Comment on above: Performed By: #### B MP #### [facility] [address] [address] [address] Darlene Lucero CO2 [Moles/Vol] 29.4 mmol/L Normal 21.0-32.0 [facility] Comment on above: Performed By: #### B MP #### [facility] [address] [address] [address] Darlene Lucero Creatinine [Mass/Vol] 0.70 mg/dL Normal 0.55-1.02 [facility] Comment on above: Performed By: #### B MP #### [facility] [address] [place] [address] Dr. Darlene Lucero EGFR-AF ZAMBIAN >60 Normal >=60 [facility] Comment on above: Performed By: #### B MP #### [facility] [address] [place] [address] Dr. Darlene Lucero EGFR-NON AF ZAMBIAN >60 Normal >=60 [facility] Comment on above: Performed By: #### B MP #### [facility] [address] [place] [address] Dr. Darlene Lucero Globulin (S) [Mass/Vol] 3.8 g/dL Normal [facility] Comment on above: Performed By: #### B MP #### [facility] [address] [place] [address] Dr. Darlene Lucero Glucose [Mass/Vol] 114 mg/dL Critically high 74-106 [facility] Comment on above: Performed By: #### B MP #### [facility] [address] [place] [address] Dr. Darlene Lucero Potassium [Moles/Vol] 3.9 mmol/L Normal 3.5-5.1 [facility] Comment on above: Performed By: #### B MP #### [facility] [address] [place] [address] Dr. Darlene Lucero Protein [Mass/Vol] 7.2 g/dL Normal 6.4-8.2 [facility] Comment on above: Performed By: #### B MP #### [facility] [address] [place] [address] Dr. Darlene Lucero Sodium [Moles/Vol] 133 mmol/L Critically low 136-145 Th [facility] Comment on above: Performed By: #### B MP #### [facility] [address] [place] [address] Dr. Darlene Lucero Urea nitrogen [Mass/Vol] 19.0 mg/dL Critically high 7.0-18.0 [facility] Comment on above: Performed By: #### B MP #### [facility] [address] [place] [address] Dr. Darlene Lucero Urea nitrogen/Creatinine [Mass ratio] 27.1 mg/mg Normal [facility] Comment on above: Performed By: #### B MP #### [facility] [address] [place] [address] Dr. Darlene Lucero PROF 14(COMP METB)on 022 Albumin [Mass/Vol] 3.2 g/dL Critically low 3.4-5.0 [place] Comment on above: Performed By: #### B MP #### [facility] [address] [place] [address] Dr. Darlene Lucero Albumin/Globulin [Mass ratio] 0.9 {ratio} Normal [facility] Comment on above: Performed By: #### B MP #### [facility] [address] [place] [address] Dr. Darlene Lucero ALP [Catalytic activity/Vol] 60 U/L Normal 46-116 [facility] Comment on above: Performed By: #### B MP #### [facility] [address] [place] [address] Dr. Darlene Lucero ALT [Catalytic activity/Vol] 17 U/L Normal 14-59 [facility] Comment on above: Performed By: #### B MP #### [facility] [address] [place] [address] Dr. Darlene Lucero Anion gap [Moles/Vol] 8.0 mmol/L Normal [facility] Comment on above: Performed By: #### B MP #### [facility] [address] [address] [address] Darlene Lucero AST [Catalytic activity/Vol] 12 U/L Critically low 15-37 [facility] Comment on above: Performed By: #### B MP #### [facility] [address] [address] [address] Darlene Lucero Bilirubin [Mass/Vol] 0.4 mg/dL Normal 0.2-1.0 [facility] Comment on above: Performed By: #### B MP #### [facility] [address] [address] [address] Darlene Lucero Calcium [Mass/Vol] 9.4 mg/dL Normal 8.5-10.1 [facility] Comment on above: Performed By: #### B MP #### [facility] [address] [address] [address] Darlene Lucero Chloride [Moles/Vol] 96 mmol/L Critically low 98-107 [facility] Comment on above: Performed By: #### B MP #### [facility] [address] [address] [address] Darlene Lucero CO2 [Moles/Vol] 32.4 mmol/L Critically high 21.0-32.0 [facility] Comment on above: Performed By: #### B MP #### [facility] [address] [address] [address] Darlene Lucero Creatinine [Mass/Vol] 0.64 mg/dL Normal 0.55-1.02 [facility] Comment on above: Performed By: #### B MP #### [facility] [address] [address] [address] Darlene Lucero EGFR-AF ZAMBIAN >60 Normal >=60 [facility] Comment on above: Performed By: #### B MP #### [facility] [address] [address] [address] Darlene Lucero EGFR-NON AF ZAMBIAN >60 Normal >=60 [facility] Comment on above: Performed By: #### B MP #### [facility] [address] [address] [address] Darlene Lucero Globulin (S) [Mass/Vol] 3.7 g/dL Normal [facility] Comment on above: Performed By: #### B MP #### [facility] [address] [address] [address] Darlene Lucero Glucose [Mass/Vol] 63 mg/dL Critically low 74-106 Th [facility] Comment on above: Performed By: #### B MP #### [facility] [address] [address] [address] Darlene Lucero Potassium [Moles/Vol] 4.4 mmol/L Normal 3.5-5.1 [facility] Comment on above: Performed By: #### B MP #### [facility] [address] [place] [address] Dr. Darlene Lucero Protein [Mass/Vol] 6.9 g/dL Normal 6.4-8.2 [facility] Comment on above: Performed By: #### B MP #### [facility] [address] [address] [address] Darlene Lucero Sodium [Moles/Vol] 132 mmol/L Critically low 136-145 [facility] Comment on above: Performed By: #### B MP #### [facility] [address] [address] [address] Darlene Lucero Urea nitrogen [Mass/Vol] 16.0 mg/dL Normal 7.0-18.0 [facility] Comment on above: Performed By: #### B MP #### [facility] [address] [address] [address] Darlene Lucero Urea nitrogen/Creatinine [Mass ratio] 25.0 mg/mg Normal [facility] Comment on above: Performed By: #### B MP #### [facility] [address] [address] [address] Darlene Lucero OSMOLALITYon 09-07-2021 Osmolality [Osmolality] 268 mosm/kg Critically low 280-301 [facility] Comment on above: Performed By: #### U WILLEM #### [facility] [address] [address] [address] Darlene Lucero OSMOLALITY URINEon Osmolality, Urine 565 mOsmol/kg Normal [facility] Comment on above: Result Comment: 24 h r : 300 - 900 Random: 50 - 1400 After 12hr fluid restriction: >850 Performed By: #### B MP #### [facility] [address] [address] [address] Darlene Lucero CBC AUTO DIFFon 09-05-2021 BASO # 0.0 103/ul Normal 0.0-0.1 [facility] Comment on above: Performed By: #### B MP #### [facility] [address] [place] [address] Dr. Darlene Lucero Basophils/100 WBC (Bld) 0.3 % Normal 0.2-2.0 [facility] Comment on above: Performed By: #### B MP #### [facility] [address] [place] [address] Dr. Darlene Lucero EO # 0.0 103/ul Normal 0.0-0.7 [facility] Comment on above: Performed By: #### B MP #### [facility] [address] [place] [address] Dr. Darlene Lucero Eosinophils/100 WBC (Bld) 0.1 % Critically low 0.9-7.0 [facility] Comment on above: Performed By: #### B MP #### [facility] [address] [place] [address] Dr. Darlene Lucero Erythrocyte distribution width (RBC) [Ratio] 12.9 % Normal 11.0-15.0 [facility] Comment on above: Performed By: #### B MP #### [facility] [address] [place] [address] Dr. Darlene Lucero Hematocrit (Bld) [Volume fraction] 32.5 % Critically low 36.0-48.0 [facility] Comment on above: Performed By: #### B MP #### [facility] [address] [place] [address] Dr. Darlene Lucero Hemoglobin (Bld) [Mass/Vol] 10.5 g/dL Critically low 12.0-16.0 [facility] Comment on above: Performed By: #### B MP #### [facility] [address] [place] [address] Dr. Darlene Lucero IG # 0.11 10e3/ul Critically high 0.00-0.03 [facility] Comment on above: Performed By: #### B MP #### [facility] [address] [place] [address] Dr. Darlene Lucero IG % 1.6 % Critically high 0.0-0.5 [facility] Comment on above: Performed By: #### B MP #### [facility] [address] [place] [address] Dr. Darlene Lucero LYMPH # 1.5 103/ul Normal 1.2-3.8 [facility] Comment on above: Performed By: #### B MP #### [facility] [address] [place] [address] Dr. Darlene Lucero Lymphocytes/100 WBC (Bld) 22.4 % Normal 20.5-60.0 [facility] Comment on above: Performed By: #### B MP #### [facility] [address] [place] [address] Dr. Darlene Lucero MANUAL DIFF REQ NO Normal [facility] Comment on above: Performed By: #### B MP #### [facility] [address] [place] [address] Dr. Darlene Lucero MCH (RBC) [Entitic mass] 29.5 pg Normal 26.7-34.0 [facility] Comment on above: Performed By: #### B MP #### [facility] [address] [place] [address] Dr. Darlene Lucero MCHC (RBC) [Mass/Vol] 32.3 g/dL Normal 29.9-35.2 [facility] Comment on above: Performed By: #### B MP #### [facility] [address] [place] [address] Dr. Darlene Lucero MCV (RBC) [Entitic vol] 91.3 fL Normal 81.0-99.0 [facility] Comment on above: Performed By: #### B MP #### [facility] [address] [place] [address] Dr. Darlene Lucero MONO # 0.8 103/ul Normal 0.3-0.8 [facility] Comment on above: Performed By: #### B MP #### [facility] [address] [place] [address] Dr. Darlene Lucero Monocytes/100 WBC (Bld) 11.6 % Normal 1.7-12.0 [facility] Comment on above: Performed By: #### B MP #### [facility] [address] [place] [address] Dr. Darlene Lucero NEUT # 4.4 103/ul Normal 1.4-6.5 [facility] Comment on above: Performed By: #### B MP #### [facility] [address] [place] [address] Dr. Darlene Lucero Neutrophils/100 WBC (Bld) 64.0 % Normal 43.0-75.0 [facility] Comment on above: Performed By: #### B MP #### [facility] [address] [place] [address] Dr. Darlene Lucero Platelet mean volume (Bld) [Entitic vol] 8.1 fL Critically low 9.5-13.5 [facility] Comment on above: Performed By: #### B MP #### [facility] [address] [place] [address] Dr. Darlene Lucero PLT 571 103/ul Critically high 150-450 [facility] Comment on above: Performed By: #### B MP #### [facility] [address] [place] [address] Dr. Darlene Lucero RBC 3.56 106/ul Critically low 4.20-5.40 [facility] Comment on above: Performed By: #### B MP #### [facility] [address] [place] [address] Dr. Darlene Lucero WBC 6.9 103/ul Normal 4.0-11.0 [facility] Comment on above: Performed By: #### B MP #### [facility] [address] [address] [address] Darlene Lucero Covid-19 PCR ([facility])on 08-15 SARS-CoV-2 (COVID-19) RNA TASHA+probe Ql (Unsp spec) Detected Critically abnormal NOT DETECTED [facility] Comment on above: Result Comment: This test is not yet approved or cleared by the [place] FDA. When there are no FDA-approved or cleared tests available, and other criteria are met, FDA can make tests available under an emergency access mechanism called an Emergency Use Authorization (EUA). The EUA for this test is supported by the [place] of Health and Human Service's (HHS's) declaration [...] used). Performed By: #### B MP #### [facility] [address] [place] [address] Dr. Darlene Lucero PROF CHEM 8 (BAS METB)on Anion gap [Moles/Vol] 7.3 mmol/L Normal [facility] Comment on above: Performed By: #### B MP #### [facility] [address] [place] [address] Dr. Darlene Lucero Calcium [Mass/Vol] 8.5 mg/dL Normal 8.5-10.1 [facility] Comment on above: Performed By: #### B MP #### [facility] [address] [address] [address] Darlene Lucero Chloride [Moles/Vol] 101 mmol/L Normal 98-107 [facility] Comment on above: Performed By: #### B MP #### [facility] [address] [place] [address] Dr. Darlene Lucero CO2 [Moles/Vol] 31.6 mmol/L Normal 21.0-32.0 [facility] Comment on above: Performed By: #### B MP #### [facility] [address] [place] [address] Dr. Darlene Lucero Creatinine [Mass/Vol] 0.49 mg/dL Critically low 0.55-1.02 [facility] Comment on above: Performed By: #### B MP #### [facility] [address] [place] [address] Dr. Darlene Lucero EGFR-AF ZAMBIAN >60 Normal >=60 [facility] Comment on above: Performed By: #### B MP #### [facility] [address] [address] [address] Darlene Lucero EGFR-NON AF ZAMBIAN >60 Normal >=60 [facility] Comment on above: Performed By: #### B MP #### [facility] [address] [place] [address] Dr. Darlene Lucero Glucose [Mass/Vol] 88 mg/dL Normal 74-106 [facility] Comment on above: Performed By: #### B MP #### [facility] [address] [place] [address] Dr. Darlene Lucero Potassium [Moles/Vol] 3.9 mmol/L Normal 3.5-5.1 [facility] Comment on above: Performed By: #### B MP #### [facility] [address] [place] [address] Dr. Darlene Lucero Sodium [Moles/Vol] 136 mmol/L Normal 136-145 [facility] Comment on above: Performed By: #### B MP #### [facility] [address] [place] [address] Dr. Darlene Lucero Urea nitrogen [Mass/Vol] 15.0 mg/dL Normal 7.0-18.0 [facility] Comment on above: Performed By: #### B MP #### [facility] [address] [place] [address] Dr. Darlene Lucero Urea nitrogen/Creatinine [Mass ratio] 30.6 mg/mg Normal [facility] Comment on above: Performed By: #### B MP #### [facility] [address] [address] [address] Darlene Lucero CBC AUTO DIFFon 09-04-2021 BASO # 0.0 103/ul Normal 0.0-0.1 [facility] Comment on above: Performed By: #### O SMOU #### [facility] [address] [place] [address] Dr. Darlene Lucero Basophils/100 WBC (Bld) 0.2 % Normal 0.2-2.0 [facility] Comment on above: Performed By: #### O SMOU #### [facility] [address] [place] [address] Dr. Darlene Lucero EO # 0.0 103/ul Normal 0.0-0.7 [facility] Comment on above: Performed By: #### O SMOU #### [facility] [address] [place] [address] Dr. Darlene Lucero Eosinophils/100 WBC (Bld) 0.0 % Critically low 0.9-7.0 [facility] Comment on above: Performed By: #### O SMOU #### [facility] [address] [place] [address] Dr. Darlene Lucero Erythrocyte distribution width (RBC) [Ratio] 12.7 % Normal 11.0-15.0 [facility] Comment on above: Performed By: #### O SMOU #### [facility] [address] [place] [address] Dr. Darlene Lucero Hematocrit (Bld) [Volume fraction] 32.0 % Critically low 36.0-48.0 [facility] Comment on above: Performed By: #### O SMOU #### [facility] [address] [place] [address] Dr. Darlene Lucero Hemoglobin (Bld) [Mass/Vol] 10.4 g/dL Critically low 12.0-16.0 [facility] Comment on above: Performed By: #### O SMOU #### [facility] [address] [place] [address] Dr. Darlene Lucero IG # 0.07 10e3/ul Critically high 0.00-0.03 [facility] Comment on above: Performed By: #### O SMOU #### [facility] [address] [place] [address] Dr. Darlene Lucero IG % 1.1 % Critically high 0.0-0.5 [facility] Comment on above: Performed By: #### O SMOU #### [facility] [address] [address] [address] Darlene Lucero LYMPH # 1.4 103/ul Normal 1.2-3.8 [facility] Comment on above: Performed By: #### O SMOU #### [facility] [address] [place] [address] Dr. Darlene Lucero Lymphocytes/100 WBC (Bld) 21.9 % Normal 20.5-60.0 [facility] Comment on above: Performed By: #### O SMOU #### [facility] [address] [place] [address] Dr. Darlene Lucero MANUAL DIFF REQ NO Normal [facility] Comment on above: Performed By: #### O SMOU #### [facility] [address] [place] [address] Dr. Darlene Lucero MCH (RBC) [Entitic mass] 29.4 pg Normal 26.7-34.0 [facility] Comment on above: Performed By: #### O SMOU #### [facility] [address] [place] [address] Dr. Darlene Lucero MCHC (RBC) [Mass/Vol] 32.5 g/dL Normal 29.9-35.2 [facility] Comment on above: Performed By: #### O SMOU #### [facility] [address] [place] [address] Dr. Darlene Lucero MCV (RBC) [Entitic vol] 90.4 fL Normal 81.0-99.0 [facility] Comment on above: Performed By: #### O SMOU #### [facility] [address] [place] [address] Dr. Darlene Lucero MONO # 0.8 103/ul Normal 0.3-0.8 [facility] Comment on above: Performed By: #### O SMOU #### [facility] [address] [address] [address] Darlene Lucero Monocytes/100 WBC (Bld) 12.6 % Critically high 1.7-12.0 [facility] Comment on above: Performed By: #### O SMOU #### [facility] [address] [address] [address] Darlene Lucero NEUT # 4.2 103/ul Normal 1.4-6.5 [facility] Comment on above: Performed By: #### O SMOU #### [facility] [address] [place] [address] Dr. Darlene Lucero Neutrophils/100 WBC (Bld) 64.2 % Normal 43.0-75.0 [facility] Comment on above: Performed By: #### O SMOU #### [facility] [address] [place] [address] Dr. Darlene Lucero Platelet mean volume (Bld) [Entitic vol] 8.0 fL Critically low 9.5-13.5 [facility] Comment on above: Performed By: #### O SMOU #### [facility] [address] [place] [address] Dr. Darlene Lucero PLT 524 103/ul Critically high 150-450 [facility] Comment on above: Performed By: #### O SMOU #### [facility] [address] [place] [address] Dr. Darlene Lucero RBC 3.54 106/ul Critically low 4.20-5.40 [facility] Comment on above: Performed By: #### O SMOU #### [facility] [address] [place] [address] Dr. Darlene Lucero WBC 6.5 103/ul Normal 4.0-11.0 [facility] Comment on above: Performed By: #### O SMOU #### [facility] [address] [place] [address] Dr. Darlene Lucero POINT OF CARE GLUCOSEon 05-2 Glucose [Mass/Vol] 120 mg/dL Critically high 74-106 [facility] Comment on above: Performed By: #### U WILLEM #### [facility] [address] [address] [address] Darlene Lucero Glucose [Mass/Vol] 129 mg/dL Critically high 74-106 [facility] Comment on above: Performed By: #### P OCGLUC #### [facility] [address] [address] [address] Darlene Lucero Glucose [Mass/Vol] 111 mg/dL Critically high 74-106 [facility] Comment on above: Performed By: #### B MP #### [facility] [address] [address] [address] Darlene Lucero Glucose [Mass/Vol] 89 mg/dL Normal 74-106 [facility] Comment on above: Performed By: #### B MP #### [facility] [address] [address] [address] Darlene Lucero PROF CHEM 8 (BAS METB)on Anion gap [Moles/Vol] 8.0 mmol/L Normal [facility] Comment on above: Performed By: #### B MP #### [facility] [address] [address] [address] Darlene Lucero Calcium [Mass/Vol] 8.6 mg/dL Normal 8.5-10.1 [facility] Comment on above: Performed By: #### B MP #### [facility] [address] [address] [address] Darlene Lucero Chloride [Moles/Vol] 97 mmol/L Critically low 98-107 [facility] Comment on above: Performed By: #### B MP #### [facility] [address] [address] [address] Darlene Lucero CO2 [Moles/Vol] 31.6 mmol/L Normal 21.0-32.0 [facility] Comment on above: Performed By: #### B MP #### [facility] [address] [address] [address] Darlene Lucero Creatinine [Mass/Vol] 0.63 mg/dL Normal 0.55-1.02 [facility] Comment on above: Performed By: #### B MP #### [facility] [address] [address] [address] Darlene Lucero EGFR-AF ZAMBIAN >60 Normal >=60 [facility] Comment on above: Performed By: #### B MP #### [facility] [address] [place] [address] Dr. Darlene Lucero EGFR-NON AF ZAMBIAN >60 Normal >=60 [facility] Comment on above: Performed By: #### B MP #### [facility] [address] [address] [address] Darlene Lucero Glucose [Mass/Vol] 96 mg/dL Normal 74-106 [facility] Comment on above: Performed By: #### B MP #### [facility] [address] [place] [address] Dr. Darlene Lucero Potassium [Moles/Vol] 3.6 mmol/L Normal 3.5-5.1 [facility] Comment on above: Performed By: #### B MP #### [facility] [address] [place] [address] Dr. Darlene Lucero Sodium [Moles/Vol] 133 mmol/L Critically low 136-145 [facility] Comment on above: Performed By: #### B MP #### [facility] [address] [place] [address] Dr. Darlene Lucero Urea nitrogen [Mass/Vol] 18.0 mg/dL Normal 7.0-18.0 [facility] Comment on above: Performed By: #### B MP #### [facility] [address] [place] [address] Dr. Darlene Lucero Urea nitrogen/Creatinine [Mass ratio] 28.6 mg/mg Normal [facility] Comment on above: Performed By: #### B MP #### [facility] [address] [place] [address] Dr. Darlene Lucero CBC AUTO DIFFon 09-03-2021 BASO # 0.0 103/ul Normal 0.0-0.1 [facility] Comment on above: Performed By: #### B MP #### [facility] [address] [address] [address] Darlene Lucero Basophils/100 WBC (Bld) 0.0 % Critically low 0.2-2.0 [facility] Comment on above: Performed By: #### B MP #### [facility] [address] [address] [address] Darlene Lucero EO # 0.0 103/ul Normal 0.0-0.7 [facility] Comment on above: Performed By: #### B MP #### [facility] [address] [address] [address] Darlene Lucero Eosinophils/100 WBC (Bld) 0.0 % Critically low 0.9-7.0 [facility] Comment on above: Performed By: #### B MP #### [facility] [address] [place] [address] Dr. Darlene Lucero Erythrocyte distribution width (RBC) [Ratio] 12.3 % Normal 11.0-15.0 [facility] Comment on above: Performed By: #### B MP #### [facility] [address] [place] [address] Dr. Darlene Lucero Hematocrit (Bld) [Volume fraction] 32.1 % Critically low 36.0-48.0 [facility] Comment on above: Performed By: #### B MP #### [facility] [address] [place] [address] Dr. Darlene Lucero Hemoglobin (Bld) [Mass/Vol] 10.9 g/dL Critically low 12.0-16.0 [facility] Comment on above: Performed By: #### B MP #### [facility] [address] [place] [address] Dr. Darlene Lucero IG # 0.04 10e3/ul Critically high 0.00-0.03 [facility] Comment on above: Performed By: #### B MP #### [facility] [address] [place] [address] Dr. Darlene Lucero IG % 0.7 % Critically high 0.0-0.5 [facility] Comment on above: Performed By: #### B MP #### [facility] [address] [address] [address] Darlene Lucero LYMPH # 1.2 103/ul Normal 1.2-3.8 [facility] Comment on above: Performed By: #### B MP #### [facility] [address] [address] [address] Darlene Lucero Lymphocytes/100 WBC (Bld) 21.3 % Normal 20.5-60.0 [facility] Comment on above: Performed By: #### B MP #### [facility] [address] [place] [address] Dr. Darlene Lucero MANUAL DIFF REQ NO Normal [facility] Comment on above: Performed By: #### B MP #### [facility] [address] [place] [address] Dr. Darlene Lucero MCH (RBC) [Entitic mass] 29.9 pg Normal 26.7-34.0 [facility] Comment on above: Performed By: #### B MP #### [facility] [address] [place] [address] Dr. Darlene Lucero MCHC (RBC) [Mass/Vol] 34.0 g/dL Normal 29.9-35.2 [facility] Comment on above: Performed By: #### B MP #### [facility] [address] [place] [address] Dr. Darlene Lucero MCV (RBC) [Entitic vol] 87.9 fL Normal 81.0-99.0 [facility] Comment on above: Performed By: #### B MP #### [facility] [address] [place] [address] Dr. Darlene Lucero MONO # 1.0 103/ul Critically high 0.3-0.8 [facility] Comment on above: Performed By: #### B MP #### [facility] [address] [place] [address] Dr. Darlene Lucero Monocytes/100 WBC (Bld) 17.2 % Critically high 1.7-12.0 [facility] Comment on above: Performed By: #### B MP #### [facility] [address] [address] [address] Darlene Lucero NEUT # 3.5 103/ul Normal 1.4-6.5 [facility] Comment on above: Performed By: #### B MP #### [facility] [address] [address] [address] Darlene Lucero Neutrophils/100 WBC (Bld) 60.8 % Normal 43.0-75.0 [facility] Comment on above: Performed By: #### B MP #### [facility] [address] [address] [address] Darlene Lucero Platelet mean volume (Bld) [Entitic vol] 8.1 fL Critically low 9.5-13.5 [facility] Comment on above: Performed By: #### B MP #### [facility] [address] [place] [address] Dr. Darlene Lucero PLT 499 103/ul Critically high 150-450 [facility] Comment on above: Performed By: #### B MP #### [facility] [address] [place] [address] Dr. Darlene Lucero RBC 3.65 106/ul Critically low 4.20-5.40 [facility] Comment on above: Performed By: #### B MP #### [facility] [address] [place] [address] Dr. Darlene Lucero WBC 5.8 103/ul Normal 4.0-11.0 [facility] Comment on above: Performed By: #### B MP #### [facility] [address] [place] [address] Dr. Darlene Lucero [facility]15 SARS-CoV-2 (COVID-19) RNA TASHA+probe Ql (Unsp spec) Detected Critically abnormal NOT DETECTED [facility] Comment on above: Result Comment: This test is not yet approved or cleared by the [place] FDA. When there are no FDA-approved or cleared tests available, and other criteria are met, FDA can make tests available under an emergency access mechanism called an Emergency Use Authorization (EUA). The EUA for this test is supported by the [place] of Health and Human Service's declaration that [...] used). Performed By: #### B MP #### [facility] [address] [place] [address] Dr. Darlene Lucero POINT OF CARE GLUCOSEon 08-15 Glucose [Mass/Vol] 131 mg/dL Critically high 74-106 [facility] Comment on above: Performed By: #### B MP #### [facility] [address] [place] [address] Dr. Darlene Lucero Glucose [Mass/Vol] 131 mg/dL Critically high 74-106 [facility] Comment on above: Performed By: #### B MP #### [facility] [address] [place] [address] Dr. Darlene Lucero PROF CHEM 8 (BAS METB)on Anion gap [Moles/Vol] 9.4 mmol/L Normal [facility] Comment on above: Performed By: #### B MP #### [facility] [address] [place] [address] Dr. Darlene Lucero Calcium [Mass/Vol] 8.6 mg/dL Normal 8.5-10.1 [facility] Comment on above: Performed By: #### B MP #### [facility] [address] [place] [address] Dr. Darlene Lucero Chloride [Moles/Vol] 97 mmol/L Critically low 98-107 [facility] Comment on above: Performed By: #### B MP #### [facility] [address] [place] [address] Dr. Darlene Lucero CO2 [Moles/Vol] 28.6 mmol/L Normal 21.0-32.0 [facility] Comment on above: Performed By: #### B MP #### [facility] [address] [place] [address] Dr. Darlene Lucero Creatinine [Mass/Vol] 0.73 mg/dL Normal 0.55-1.02 [facility] Comment on above: Performed By: #### B MP #### [facility] [address] [place] [address] Dr. Darlene Lucero EGFR-AF ZAMBIAN >60 Normal >=60 [facility] Comment on above: Performed By: #### B MP #### [facility] [address] [address] [address] Darlene Lucero EGFR-NON AF ZAMBIAN >60 Normal >=60 [facility] Comment on above: Performed By: #### B MP #### [facility] [address] [place] [address] Dr. Darlene Lucero Glucose [Mass/Vol] 172 mg/dL Critically high 74-106 [facility] Comment on above: Performed By: #### B MP #### [facility] [address] [place] [address] Dr. Darlene Lucero Potassium [Moles/Vol] 4.0 mmol/L Normal 3.5-5.1 [facility] Comment on above: Performed By: #### B MP #### [facility] [address] [place] [address] Dr. Darlene Lucero Sodium [Moles/Vol] 131 mmol/L Critically low 136-145 Th [facility] Comment on above: Performed By: #### B MP #### [facility] [address] [place] [address] Dr. Darlene Lucero Urea nitrogen [Mass/Vol] 19.0 mg/dL Critically high 7.0-18.0 [facility] Comment on above: Performed By: #### B MP #### [facility] [address] [place] [address] Dr. Darlene Lucero Urea nitrogen/Creatinine [Mass ratio] 26.0 mg/mg Normal [facility] Comment on above: Performed By: #### B MP #### [facility] [address] [place] [address] Dr. Darlene Lucero Anion gap [Moles/Vol] 10.3 mmol/L Normal [facility] Comment on above: Performed By: #### B MP #### [facility] [address] [address] [address] Darlene Lucero Calcium [Mass/Vol] 8.4 mg/dL Critically low 8.5-10.1 [facility] Comment on above: Performed By: #### B MP #### [facility] [address] [address] [address] Darlene Lucero Chloride [Moles/Vol] 90 mmol/L Critically low 98-107 [facility] Comment on above: Performed By: #### B MP #### [facility] [address] [address] [address] Darlene Lucero CO2 [Moles/Vol] 28.0 mmol/L Normal 21.0-32.0 [facility] Comment on above: Performed By: #### B MP #### [facility] [address] [place] [address] Dr. Darlene Lucero Creatinine [Mass/Vol] 0.69 mg/dL Normal 0.55-1.02 [facility] Comment on above: Performed By: #### B MP #### [facility] [address] [place] [address] Dr. Darlene Lucero EGFR-AF ZAMBIAN >60 Normal >=60 [facility] Comment on above: Performed By: #### B MP #### [facility] [address] [place] [address] Dr. Darlene Lucero EGFR-NON AF ZAMBIAN >60 Normal >=60 [facility] Comment on above: Performed By: #### B MP #### [facility] [address] [place] [address] Dr. Darlene Lucero Glucose [Mass/Vol] 95 mg/dL Normal 74-106 [facility] Comment on above: Performed By: #### B MP #### [facility] [address] [place] [address] Dr. Darlene Lucero Potassium [Moles/Vol] 3.3 mmol/L Critically low 3.5-5.1 [facility] Comment on above: Performed By: #### B MP #### [facility] [address] [address] [address] Darlene Lucero Sodium [Moles/Vol] 125 mmol/L Critically low 136-145 Th [facility] Comment on above: Performed By: #### B MP #### [facility] [address] [address] [address] Darlene Lucero Urea nitrogen [Mass/Vol] 18.0 mg/dL Normal 7.0-18.0 [facility] Comment on above: Performed By: #### B MP #### [facility] [address] [address] [address] Darlene Lucero Urea nitrogen/Creatinine [Mass ratio] 26.1 mg/mg Normal [facility] Comment on above: Performed By: #### B MP #### [facility] [address] [address] [address] Darlene Lucero Anion gap [Moles/Vol] 9.0 mmol/L Normal [facility] Comment on above: Performed By: #### O SMOU #### [facility] [address] [address] [address] Darlene Lucero Calcium [Mass/Vol] 8.3 mg/dL Critically low 8.5-10.1 [facility] Comment on above: Performed By: #### O SMOU #### [facility] [address] [address] [address] Darlene Lucero Chloride [Moles/Vol] 92 mmol/L Critically low 98-107 [facility] Comment on above: Performed By: #### O SMOU #### [facility] [address] [address] [address] Darlene Lucero CO2 [Moles/Vol] 28.8 mmol/L Normal 21.0-32.0 [facility] Comment on above: Performed By: #### O SMOU #### [facility] [address] [address] [address] Darlene Lucero Creatinine [Mass/Vol] 0.65 mg/dL Normal 0.55-1.02 [facility] Comment on above: Performed By: #### O SMOU #### [facility] [address] [address] [address] Darlene Lucero EGFR-AF ZAMBIAN >60 Normal >=60 [facility] Comment on above: Performed By: #### O SMOU #### [facility] [address] [place] [address] Dr. Darlene Lucero EGFR-NON AF ZAMBIAN >60 Normal >=60 [facility] Comment on above: Performed By: #### O SMOU #### [facility] [address] [address] [address] Darlene Lucero Glucose [Mass/Vol] 89 mg/dL Normal 74-106 [facility] Comment on above: Performed By: #### O SMOU #### [facility] [address] [place] [address] Dr. Darlene Lucero Potassium [Moles/Vol] 3.8 mmol/L Normal 3.5-5.1 [facility] Comment on above: Performed By: #### O SMOU #### [facility] [address] [place] [address] Dr. Darlene Lucero Sodium [Moles/Vol] 126 mmol/L Critically low 136-145 Th [facility] Comment on above: Performed By: #### O SMOU #### [facility] [address] [place] [address] Dr. Darlene Lucero Urea nitrogen [Mass/Vol] 19.0 mg/dL Critically high 7.0-18.0 [facility] Comment on above: Performed By: #### O SMOU #### [facility] [address] [place] [address] Dr. Darlene Lucero Urea nitrogen/Creatinine [Mass ratio] 29.2 mg/mg Normal [facility] Comment on above: Performed By: #### O SMOU #### [facility] [address] [place] [address] Dr. Darlene Lucero Anion gap [Moles/Vol] 9.0 mmol/L Normal [facility] Comment on above: Performed By: #### O SMOU #### [facility] [address] [place] [address] Dr. Darlene Lucero Calcium [Mass/Vol] 8.2 mg/dL Critically low 8.5-10.1 [facility] Comment on above: Performed By: #### O SMOU #### [facility] [address] [address] [address] Darlene Lucero Chloride [Moles/Vol] 92 mmol/L Critically low 98-107 [facility] Comment on above: Performed By: #### O SMOU #### [facility] [address] [address] [address] Darlene Lucero CO2 [Moles/Vol] 26.8 mmol/L Normal 21.0-32.0 [facility] Comment on above: Performed By: #### O SMOU #### [facility] [address] [place] [address] Dr. Darelne Lucero Creatinine [Mass/Vol] 0.68 mg/dL Normal 0.55-1.02 [facility] Comment on above: Performed By: #### O SMOU #### [facility] [address] [place] [address] Dr. Darlene Lucero EGFR-AF ZAMBIAN >60 Normal >=60 [facility] Comment on above: Performed By: #### O SMOU #### [facility] [address] [place] [address] Dr. Darlene Lucero EGFR-NON AF ZAMBIAN >60 Normal >=60 [facility] Comment on above: Performed By: #### O SMOU #### [facility] [address] [place] [address] Dr. Darlene Lucero Glucose [Mass/Vol] 94 mg/dL Normal 74-106 [facility] Comment on above: Performed By: #### O SMOU #### [facility] [address] [place] [address] Dr. Darlene Lucero Potassium [Moles/Vol] 3.8 mmol/L Normal 3.5-5.1 [facility] Comment on above: Performed By: #### O SMOU #### [facility] [address] [place] [address] Dr. Darlene Lucero Sodium [Moles/Vol] 124 mmol/L Critically low 136-145 [facility] Comment on above: Result Comment: repe ated Performed By: #### O SMOU #### [facility] [address] [place] [address] Dr. Darlene Lucero Urea nitrogen [Mass/Vol] 20.0 mg/dL Critically high 7.0-18.0 [facility] Comment on above: Performed By: #### O SMOU #### [facility] [address] [place] [address] Dr. Darlene Lucero Urea nitrogen/Creatinine [Mass ratio] 29.4 mg/mg Normal [facility] Comment on above: Performed By: #### O SMOU #### [facility] [address] [place] [address] Dr. Darlene Lucero CBC AUTO DIFFon 09-02-2021 BASO # 0.0 103/ul Normal 0.0-0.1 [facility] Comment on above: Performed By: #### B MP #### [facility] [address] [place] [address] Dr. Darlene Lucero Basophils/100 WBC (Bld) 0.1 % Critically low 0.2-2.0 [facility] Comment on above: Performed By: #### B MP #### [facility] [address] [place] [address] Dr. Darlene Lucero EO # 0.0 103/ul Normal 0.0-0.7 [facility] Comment on above: Performed By: #### B MP #### [facility] [address] [place] [address] Dr. Darlene Lucero Eosinophils/100 WBC (Bld) 0.0 % Critically low 0.9-7.0 [facility] Comment on above: Performed By: #### B MP #### [facility] [address] [place] [address] Dr. Darlene Lucero Erythrocyte distribution width (RBC) [Ratio] 12.0 % Normal 11.0-15.0 [facility] Comment on above: Performed By: #### B MP #### [facility] [address] [place] [address] Dr. Darlene Lucero Hematocrit (Bld) [Volume fraction] 35.1 % Critically low 36.0-48.0 [facility] Comment on above: Performed By: #### B MP #### [facility] [address] [place] [address] Dr. Darlene Lucero Hemoglobin (Bld) [Mass/Vol] 11.9 g/dL Critically low 12.0-16.0 [facility] Comment on above: Performed By: #### B MP #### [facility] [address] [place] [address] Dr. Darlene Lucero IG # 0.04 10e3/ul Critically high 0.00-0.03 [facility] Comment on above: Performed By: #### B MP #### [facility] [address] [place] [address] Dr. Darlene Lucero IG % 0.4 % Normal 0.0-0.5 [facility] Comment on above: Performed By: #### B MP #### [facility] [address] [place] [address] Dr. Darlene Lucero LYMPH # 1.0 103/ul Critically low 1.2-3.8 [facility] Comment on above: Performed By: #### B MP #### [facility] [address] [place] [address] Dr. Darlene Lucero Lymphocytes/100 WBC (Bld) 10.6 % Critically low 20.5-60.0 [facility] Comment on above: Performed By: #### B MP #### [facility] [address] [place] [address] Dr. Darlene Lucero MANUAL DIFF REQ NO Normal [facility] Comment on above: Performed By: #### B MP #### [facility] [address] [place] [address] Dr. Darlene Lucero MCH (RBC) [Entitic mass] 29.4 pg Normal 26.7-34.0 [facility] Comment on above: Performed By: #### B MP #### [facility] [address] [place] [address] Dr. Darlene Lucero MCHC (RBC) [Mass/Vol] 33.9 g/dL Normal 29.9-35.2 [facility] Comment on above: Performed By: #### B MP #### [facility] [address] [place] [address] Dr. Darlene Lucero MCV (RBC) [Entitic vol] 86.7 fL Normal 81.0-99.0 [facility] Comment on above: Performed By: #### B MP #### [facility] [address] [address] [address] Darlene Lucero MONO # 1.1 103/ul Critically high 0.3-0.8 [facility] Comment on above: Performed By: #### B MP #### [facility] [address] [place] [address] Dr. Darlene Lucero Monocytes/100 WBC (Bld) 12.1 % Critically high 1.7-12.0 [facility] Comment on above: Performed By: #### B MP #### [facility] [address] [place] [address] Dr. Darlene Lucero NEUT # 6.9 103/ul Critically high 1.4-6.5 [facility] [facility] Comment on above: Performed By: #### B MP #### [facility] [address] [place] [address] Dr. Darlene Lucero Neutrophils/100 WBC (Bld) 76.8 % Critically high 43.0-75.0 [facility] Comment on above: Performed By: #### B MP #### [facility] [address] [place] [address] Dr. Darlene Lucero Platelet mean volume (Bld) [Entitic vol] 8.1 fL Critically low 9.5-13.5 [facility] Comment on above: Performed By: #### B MP #### [facility] [address] [place] [address] Dr. Darlene Lucero PLT 498 103/ul Critically high 150-450 [facility] Comment on above: Performed By: #### B MP #### [facility] [address] [place] [address] Dr. Darlene Lucero RBC 4.05 106/ul Critically low 4.20-5.40 [facility] Comment on above: Performed By: #### B MP #### [facility] [address] [address] [address] Darlene Lucero WBC 9.0 103/ul Normal 4.0-11.0 [facility] Comment on above: Performed By: #### B MP #### [facility] [address] [address] [address] Darlene Lucero OSMOLALITY URINEon Osmolality, Urine 522 mOsmol/kg Normal [facility] Comment on above: Result Comment: 24 h r : 300 - 900 Random: 50 - 1400 After 12hr fluid restriction: >850 Performed By: #### O SMOU #### [facility] [address] [place] [address] Dr. Darlene Lucero POINT OF CARE GLUCOSEon 08-15 Glucose [Mass/Vol] 146 mg/dL Critically high 74-106 [facility] Comment on above: Performed By: #### O SMOU #### [facility] [address] [address] [address] Darlene Lucero Glucose [Mass/Vol] 151 mg/dL Critically high -106 [facility] Comment on above: Performed By: #### B MP #### [facility] [address] [place] [address] Dr. Darlene Lucero Glucose [Mass/Vol] 123 mg/dL Critically high -106 [facility] Comment on above: Performed By: #### B MP #### [facility] [address] [place] [address] Dr. Darlene Lucero Glucose [Mass/Vol] 153 mg/dL Critically high -106 [facility] Comment on above: Performed By: #### B MP #### [facility] [address] [place] [address] Dr. Darlene Lucero PROF CHEM 8 (BAS METB)on Anion gap [Moles/Vol] 10.1 mmol/L Normal [facility] Comment on above: Performed By: #### B MP #### [facility] [address] [address] [address] Darlene Lucero Calcium [Mass/Vol] 8.4 mg/dL Critically low 8.5-10.1 [facility] Comment on above: Performed By: #### B MP #### [facility] [address] [address] [address] Darlene Lucero Chloride [Moles/Vol] 90 mmol/L Critically low 98-107 [facility] Comment on above: Performed By: #### B MP #### [facility] [address] [address] [address] Darlene Lucero CO2 [Moles/Vol] 27.4 mmol/L Normal 21.0-32.0 [facility] Comment on above: Performed By: #### B MP #### [facility] [address] [address] [address] Darlene Lucero Creatinine [Mass/Vol] 0.82 mg/dL Normal 0.55-1.02 [facility] Comment on above: Performed By: #### B MP #### [facility] [address] [address] [address] Darlene Lucero EGFR-AF ZAMBIAN >60 Normal >=60 [facility] Comment on above: Performed By: #### B MP #### [facility] [address] [address] [address] Darlene Lucero EGFR-NON AF ZAMBIAN >60 Normal >=60 [facility] Comment on above: Performed By: #### B MP #### [facility] [address] [address] [address] Darlene Lucero Glucose [Mass/Vol] 120 mg/dL Critically high 74-106 [facility] Comment on above: Performed By: #### B MP #### [facility] [address] [address] [address] Darlene Lucero Potassium [Moles/Vol] 3.5 mmol/L Normal 3.5-5.1 [facility] Comment on above: Performed By: #### B MP #### [facility] [address] [address] [address] Darlene Lucero Sodium [Moles/Vol] 124 mmol/L Critically low 136-145 [facility] Comment on above: Result Comment: repe ated Performed By: #### B MP #### [facility] [address] [address] [address] Darlene Lucero Urea nitrogen [Mass/Vol] 20.0 mg/dL Critically high 7.0-18.0 [facility] Comment on above: Performed By: #### B MP #### [facility] [address] [address] [address] Darlene Lucero Urea nitrogen/Creatinine [Mass ratio] 24.4 mg/mg Normal [facility] Comment on above: Performed By: #### B MP #### [facility] [address] [place] [address] Dr. Darlene Lucero Anion gap [Moles/Vol] 11.7 mmol/L Normal [facility] Comment on above: Performed By: #### O SMOU #### [facility] [address] [address] [address] Darlene Lucero Calcium [Mass/Vol] 8.5 mg/dL Normal 8.5-10.1 [facility] Comment on above: Performed By: #### O SMOU #### [facility] [address] [place] [address] Dr. Darlene Lucero Chloride [Moles/Vol] 89 mmol/L Critically low 98-107 [facility] Comment on above: Performed By: #### O SMOU #### [facility] [address] [address] [address] Darlene Lucero CO2 [Moles/Vol] 25.2 mmol/L Normal 21.0-32.0 [facility] Comment on above: Performed By: #### O SMOU #### [facility] [address] [address] [address] Darlene Lucero Creatinine [Mass/Vol] 0.76 mg/dL Normal 0.55-1.02 [facility] Comment on above: Performed By: #### O SMOU #### [facility] [address] [place] [address] Dr. Darlene Lucero EGFR-AF ZAMBIAN >60 Normal >=60 [facility] Comment on above: Performed By: #### O SMOU #### [facility] [address] [place] [address] Dr. Darlene Lucero EGFR-NON AF ZAMBIAN >60 Normal >=60 [facility] Comment on above: Performed By: #### O SMOU #### [facility] [address] [place] [address] Dr. Darlene Lucero Glucose [Mass/Vol] 140 mg/dL Critically high 74-106 [facility] Comment on above: Performed By: #### O SMOU #### [facility] [address] [place] [address] Dr. Darlene Lucero Potassium [Moles/Vol] 3.9 mmol/L Normal 3.5-5.1 [facility] Comment on above: Performed By: #### O SMOU #### [facility] [address] [place] [address] Dr. Darlene Lucero Sodium [Moles/Vol] 122 mmol/L Critically low 136-145 [facility] Comment on above: Performed By: #### O SMOU #### [facility] [address] [place] [address] Dr. Darlene Lucero Urea nitrogen [Mass/Vol] 16.0 mg/dL Normal 7.0-18.0 [facility] Comment on above: Performed By: #### O SMOU #### [facility] [address] [place] [address] Dr. Darlene Lucero Urea nitrogen/Creatinine [Mass ratio] 21.1 mg/mg Normal [facility] Comment on above: Performed By: #### O SMOU #### [facility] [address] [place] [address] Dr. Darlene Lucero Anion gap [Moles/Vol] 9.2 mmol/L Normal [facility] Comment on above: Performed By: #### O SMOU #### [facility] [address] [place] [address] Dr. Darlene Lucero Calcium [Mass/Vol] 8.3 mg/dL Critically low 8.5-10.1 [place] Comment on above: Performed By: #### O SMOU #### [facility] [address] [address] [address] Darlene Lucero Chloride [Moles/Vol] 88 mmol/L Critically low 98-107 [facility] Comment on above: Performed By: #### O SMOU #### [facility] [address] [address] [address] Darlene Lucero CO2 [Moles/Vol] 27.8 mmol/L Normal 21.0-32.0 [facility] Comment on above: Performed By: #### O SMOU #### [facility] [address] [place] [address] Dr. Darlene Lucero Creatinine [Mass/Vol] 0.78 mg/dL Normal 0.55-1.02 [facility] Comment on above: Performed By: #### O SMOU #### [facility] [address] [place] [address] Dr. Darlene Lucero EGFR-AF ZAMBIAN >60 Normal >=60 [facility] Comment on above: Performed By: #### O SMOU #### [facility] [address] [place] [address] Dr. Darlene Lucero EGFR-NON AF ZAMBIAN >60 Normal >=60 [facility] Comment on above: Performed By: #### O SMOU #### [facility] [address] [place] [address] Dr. Darlene Lucero Glucose [Mass/Vol] 148 mg/dL Critically high 74-106 [facility] Comment on above: Performed By: #### O SMOU #### [facility] [address] [place] [address] Dr. Darlene Lucero Potassium [Moles/Vol] 4.0 mmol/L Normal 3.5-5.1 [facility] Comment on above: Performed By: #### O SMOU #### [facility] [address] [place] [address] Dr. Darlene Lucero Sodium [Moles/Vol] 122 mmol/L Critically low 136-145 [facility] Comment on above: Performed By: #### O SMOU #### [facility] [address] [address] [address] Darlene Lucero Urea nitrogen [Mass/Vol] 15.0 mg/dL Normal 7.0-18.0 [facility] Comment on above: Performed By: #### O SMOU #### [facility] [address] [address] [address] Darlene Lucero Urea nitrogen/Creatinine [Mass ratio] 19.2 mg/mg Normal [facility] Comment on above: Performed By: #### O SMOU #### [facility] [address] [address] [address] Darlene Lucero Anion gap [Moles/Vol] 9.1 mmol/L Normal [facility] Comment on above: Performed By: #### B MP #### [facility] [address] [place] [address] Dr. Darlene Lucero Calcium [Mass/Vol] 8.3 mg/dL Critically low 8.5-10.1 [facility] Comment on above: Performed By: #### B MP #### [facility] [address] [address] [address] Darlene Lucero Chloride [Moles/Vol] 86 mmol/L Critically low 98-107 [facility] Comment on above: Performed By: #### B MP #### [facility] [address] [place] [address] Dr. Darlene Lucero CO2 [Moles/Vol] 27.9 mmol/L Normal 21.0-32.0 [facility] Comment on above: Performed By: #### B MP #### [facility] [address] [address] [address] Darlene Lucero Creatinine [Mass/Vol] 0.78 mg/dL Normal 0.55-1.02 [facility] Comment on above: Performed By: #### B MP #### [facility] [address] [address] [address] Darlene Lucero EGFR-AF ZAMBIAN >60 Normal >=60 [facility] Comment on above: Performed By: #### B MP #### [facility] [address] [address] [address] Darlene Lucero EGFR-NON AF ZAMBIAN >60 Normal >=60 [facility] Comment on above: Performed By: #### B MP #### [facility] [address] [place] [address] Dr. Darlene Lucero Glucose [Mass/Vol] 106 mg/dL Normal 74-106 [facility] Comment on above: Performed By: #### B MP #### [facility] [address] [address] [address] Darlene Lucero Potassium [Moles/Vol] 4.0 mmol/L Normal 3.5-5.1 [facility] Comment on above: Performed By: #### B MP #### [facility] [address] [place] [address] Dr. Darlene Lucero Sodium [Moles/Vol] 119 mmol/L Critically low 136-145 [facility] Comment on above: Performed By: #### B MP #### [facility] [address] [place] [address] Dr. Darlene Lucero Urea nitrogen [Mass/Vol] 14.0 mg/dL Normal 7.0-18.0 [facility] Comment on above: Performed By: #### B MP #### [facility] [address] [place] [address] Dr. Darlene Lucero Urea nitrogen/Creatinine [Mass ratio] 17.9 mg/mg Normal [facility] Comment on above: Performed By: #### B MP #### [facility] [address] [address] [address] Darlene Lucero Anion gap [Moles/Vol] 11.7 mmol/L Normal [facility] Comment on above: Performed By: #### B MP #### [facility] [address] [place] [address] Dr. Darlene Lucero Calcium [Mass/Vol] 8.5 mg/dL Normal 8.5-10.1 [facility] Comment on above: Performed By: #### B MP #### [facility] [address] [place] [address] Dr. Darlene Lucero Chloride [Moles/Vol] 85 mmol/L Critically low 98-107 [facility] Comment on above: Performed By: #### B MP #### [facility] [address] [address] [address] Darlene Lucero CO2 [Moles/Vol] 25.9 mmol/L Normal 21.0-32.0 [facility] Comment on above: Performed By: #### B MP #### [facility] [address] [address] [address] Darlene Lucero Creatinine [Mass/Vol] 0.85 mg/dL Normal 0.55-1.02 [facility] Comment on above: Performed By: #### B MP #### [facility] [address] [address] [address] Darlene Lucero EGFR-AF ZAMBIAN >60 Normal >=60 [facility] Comment on above: Performed By: #### B MP #### [facility] [address] [address] [address] Darlene Lucero EGFR-NON AF ZAMBIAN >60 Normal >=60 [facility] Comment on above: Performed By: #### B MP #### [facility] [address] [address] [address] Darlene Lucero Glucose [Mass/Vol] 105 mg/dL Normal 74-106 [facility] Comment on above: Performed By: #### B MP #### [facility] [address] [address] [address] Darlene Lucero Potassium [Moles/Vol] 3.6 mmol/L Normal 3.5-5.1 [facility] Comment on above: Performed By: #### B MP #### [facility] [address] [address] [address] Darlene Lucero Sodium [Moles/Vol] 119 mmol/L Critically low 136-145 [facility] Comment on above: Result Comment: repe ated Performed By: #### B MP #### [facility] [address] [address] [address] Darlene Lucero Urea nitrogen [Mass/Vol] 13.0 mg/dL Normal 7.0-18.0 [facility] Comment on above: Performed By: #### B MP #### [facility] [address] [address] [address] Darlene Lucero Urea nitrogen/Creatinine [Mass ratio] 15.3 mg/mg Normal [facility] Comment on above: Performed By: #### B MP #### [facility] [address] [address] [address] Darlene Lucero Anion gap [Moles/Vol] 11.3 mmol/L Normal [facility] Comment on above: Performed By: #### B MP #### [facility] [address] [address] [address] Darlene Lucero Calcium [Mass/Vol] 8.2 mg/dL Critically low 8.5-10.1 [facility] Comment on above: Performed By: #### B MP #### [facility] [address] [address] [address] Darlene Lucero Chloride [Moles/Vol] 85 mmol/L Critically low 98-107 [facility] Comment on above: Performed By: #### B MP #### [facility] [address] [address] [address] Darlene Lucero CO2 [Moles/Vol] 27.2 mmol/L Normal 21.0-32.0 [facility] Comment on above: Performed By: #### B MP #### [facility] [address] [address] [address] Darlene Lucero Creatinine [Mass/Vol] 0.89 mg/dL Normal 0.55-1.02 [facility] Comment on above: Performed By: #### B MP #### [facility] [address] [address] [address] Darlene Lucero EGFR-AF ZAMBIAN >60 Normal >=60 [facility] Comment on above: Performed By: #### B MP #### [facility] [address] [address] [address] Darlene Lucero EGFR-NON AF ZAMBIAN >60 Normal >=60 [facility] Comment on above: Performed By: #### B MP #### [facility] [address] [address] [address] Darlene Lucero Glucose [Mass/Vol] 105 mg/dL Normal 74-106 [facility] Comment on above: Performed By: #### B MP #### [facility] [address] [place] [address] Dr. Darlene Lucero Potassium [Moles/Vol] 3.5 mmol/L Normal 3.5-5.1 [facility] Comment on above: Performed By: #### B MP #### [facility] [address] [place] [address] Dr. Darlene Lucero Sodium [Moles/Vol] 120 mmol/L Critically low 136-145 [facility] Comment on above: Result Comment: repe ated Performed By: #### B MP #### [facility] [address] [place] [address] Dr. Darlene Lucero Urea nitrogen [Mass/Vol] 12.0 mg/dL Normal 7.0-18.0 [facility] Comment on above: Performed By: #### B MP #### [facility] [address] [place] [address] Dr. Darlene Lucero Urea nitrogen/Creatinine [Mass ratio] 13.5 mg/mg Normal [facility] Comment on above: Performed By: #### B MP #### [facility] [address] [place] [address] Dr. Darlene Lucero CBC AUTO DIFFon 09-01-2021 BASO # 0.0 103/ul Normal 0.0-0.1 [facility] Comment on above: Performed By: #### U WILLEM #### [facility] [address] [place] [address] Dr. Darlene Lucero Basophils/100 WBC (Bld) 0.1 % Critically low 0.2-2.0 [facility] Comment on above: Performed By: #### U WILLEM #### [facility] [address] [place] [address] Dr. Darlene Lucero EO # 0.0 103/ul Normal 0.0-0.7 [facility] Comment on above: Performed By: #### U WILLEM #### [facility] [address] [address] [address] Darlene Lucero Eosinophils/100 WBC (Bld) 0.0 % Critically low 0.9-7.0 [facility] Comment on above: Performed By: #### U WILLEM #### [facility] [address] [address] [address] Darlene Lucero Erythrocyte distribution width (RBC) [Ratio] 11.9 % Normal 11.0-15.0 [facility] Comment on above: Performed By: #### U WILLEM #### [facility] [address] [address] [address] Darlene Lucero Hematocrit (Bld) [Volume fraction] 36.0 % Normal 36.0-48.0 [facility] Comment on above: Performed By: #### U WILLEM #### [facility] [address] [place] [address] Dr. Darlene Lucero Hemoglobin (Bld) [Mass/Vol] 12.2 g/dL Normal 12.0-16.0 [facility] Comment on above: Performed By: #### U WILLEM #### [facility] [address] [place] [address] Dr. Darlene Lucero IG # 0.07 10e3/ul Critically high 0.00-0.03 [facility] Comment on above: Performed By: #### U WILLEM #### [facility] [address] [place] [address] Dr. Darlene Lucero IG % 0.6 % Critically high 0.0-0.5 [facility] Comment on above: Performed By: #### U WILLEM #### [facility] [address] [address] [address] Darlene Lucero LYMPH # 1.1 103/ul Critically low 1.2-3.8 [facility] Comment on above: Performed By: #### U WILLEM #### [facility] [address] [place] [address] Dr. Darlene Lucero Lymphocytes/100 WBC (Bld) 9.2 % Critically low 20.5-60.0 [facility] Comment on above: Performed By: #### U WILLEM #### [facility] [address] [address] [address] Darlene Lucero MANUAL DIFF REQ NO Normal [facility] Comment on above: Performed By: #### U WILLEM #### [facility] [address] [place] [address] Dr. Darlene Lucero MCH (RBC) [Entitic mass] 29.5 pg Normal 26.7-34.0 [facility] Comment on above: Performed By: #### U WILLEM #### [facility] [address] [place] [address] Dr. Darlene Lucero MCHC (RBC) [Mass/Vol] 33.9 g/dL Normal 29.9-35.2 [facility] Comment on above: Performed By: #### U WILLEM #### [facility] [address] [place] [address] Dr. Darlene Lucero MCV (RBC) [Entitic vol] 87.0 fL Normal 81.0-99.0 [facility] Comment on above: Performed By: #### U WILLEM #### [facility] [address] [place] [address] Dr. Darlene Lucero MONO # 1.4 103/ul Critically high 0.3-0.8 [facility] Comment on above: Performed By: #### U WILLEM #### [facility] [address] [place] [address] Dr. Darlene Lucero Monocytes/100 WBC (Bld) 11.6 % Normal 1.7-12.0 [facility] Comment on above: Performed By: #### U WILLEM #### [facility] [address] [place] [address] Dr. Darlene Lucero NEUT # 9.1 103/ul Critically high 1.4-6.5 [facility] Comment on above: Performed By: #### U WILLEM #### [facility] [address] [place] [address] Dr. Darlene Lucero Neutrophils/100 WBC (Bld) 78.5 % Critically high 43.0-75.0 [facility] Comment on above: Performed By: #### U WILLEM #### [facility] [address] [address] [address] Darlene Lucero Platelet mean volume (Bld) [Entitic vol] 7.9 fL Critically low 9.5-13.5 [facility] Comment on above: Performed By: #### U WILLEM #### [facility] [address] [address] [address] Darlene Lucero PLT 447 103/ul Normal 150-450 [facility] Comment on above: Performed By: #### U WILLEM #### [facility] [address] [address] [address] Darlene Lucero RBC 4.14 106/ul Critically low 4.20-5.40 [facility] Comment on above: Performed By: #### U WILLEM #### [facility] [address] [place] [address] Dr. Darlene Lucero WBC 11.6 103/ul Critically high 4.0-11.0 [facility] Comment on above: Performed By: #### U WILLEM #### [facility] [address] [place] [address] Dr. Darlene Lucero Covid-19 PCR ([facility])on 08-14 SARS-CoV-2 (COVID-19) RNA TASHA+probe Ql (Unsp spec) Detected Critically abnormal NOT DETECTED [facility] Comment on above: Result Comment: This test is not yet approved or cleared by the [place] FDA. When there are no FDA-approved or cleared tests available, and other criteria are met, FDA can make tests available under an emergency access mechanism called an Emergency Use Authorization (EUA). The EUA for this test is supported by the [employer] of Health and Human Service's (HHS's) declaration [...] used). Performed By: #### U WILLEM #### [facility] [address] [place] [address] Dr. Darlene Lucero PROF CHEM 8 (BAS METB)on Anion gap [Moles/Vol] 13.1 mmol/L Normal [facility] Comment on above: Performed By: #### B MP #### [place] [facility] [address] [address] [address] Darlene Lucero Calcium [Mass/Vol] 8.4 mg/dL Critically low 8.5-10.1 Th [facility] Comment on above: Performed By: #### B MP #### [facility] [address] [address] [address] Darlene Lucero Chloride [Moles/Vol] 88 mmol/L Critically low 98-107 [facility] Comment on above: Performed By: #### B MP #### [facility] [address] [address] [address] Darlene Lucero CO2 [Moles/Vol] 24.0 mmol/L Normal 21.0-32.0 [facility] Comment on above: Performed By: #### B MP #### [facility] [address] [address] [address] Darlene Lucero Creatinine [Mass/Vol] 0.60 mg/dL Normal 0.55-1.02 [facility] Comment on above: Performed By: #### B MP #### [facility] [address] [place] [address] Dr. Darlene Lucero EGFR-AF ZAMBIAN >60 Normal >=60 [facility] Comment on above: Performed By: #### B MP #### [facility] [address] [address] [address] Darlene Lucero EGFR-NON AF ZAMBIAN >60 Normal >=60 [facility] Comment on above: Performed By: #### B MP #### [facility] [address] [address] [address] Darlene Lucero Glucose [Mass/Vol] 131 mg/dL Critically high 74-106 [facility] Comment on above: Performed By: #### B MP #### [facility] [address] [address] [address] Darlene Lucero Potassium [Moles/Vol] 4.2 mmol/L Normal 3.5-5.1 [facility] Comment on above: Performed By: #### B MP #### [facility] [address] [address] [address] Darlene Lucero Sodium [Moles/Vol] 121 mmol/L Critically low 136-145 Th [facility] Comment on above: Result Comment: repe ated Performed By: #### B MP #### [facility] [address] [address] [address] Darlene Lucero Urea nitrogen [Mass/Vol] 11.0 mg/dL Normal 7.0-18.0 [facility] Comment on above: Performed By: #### B MP #### [facility] [address] [place] [address] Dr. Darlene Lucero Urea nitrogen/Creatinine [Mass ratio] 18.3 mg/mg Normal [facility] Comment on above: Performed By: #### B MP #### [facility] [address] [place] [address] Dr. Darlene Lucero Anion gap [Moles/Vol] 10.4 mmol/L Normal [facility] Comment on above: Performed By: #### U WILLEM #### [facility] [address] [place] [address] Dr. Darlene Lucero Calcium [Mass/Vol] 8.1 mg/dL Critically low 8.5-10.1 Th [facility] Comment on above: Performed By: #### U WILLEM #### [facility] [address] [address] [address] Darlene Lucero Chloride [Moles/Vol] 85 mmol/L Critically low 98-107 [facility] Comment on above: Performed By: #### U WILLEM #### [facility] [address] [address] [address] Darlene Lucero CO2 [Moles/Vol] 25.9 mmol/L Normal 21.0-32.0 [facility] Comment on above: Performed By: #### U WILLEM #### [facility] [address] [place] [address] Dr. Darlene Lucero Creatinine [Mass/Vol] 0.57 mg/dL Normal 0.55-1.02 [facility] Comment on above: Performed By: #### U WILLEM #### [facility] [address] [place] [address] Dr. Darlene Lucero EGFR-AF ZAMBIAN >60 Normal >=60 [facility] Comment on above: Performed By: #### U WILLEM #### [facility] [address] [address] [address] Darlene Lucero EGFR-NON AF ZAMBIAN >60 Normal >=60 [facility] Comment on above: Performed By: #### U WILLEM #### [facility] [address] [address] [address] Darlene Lucero Glucose [Mass/Vol] 139 mg/dL Critically high 74-106 [facility] Comment on above: Performed By: #### U WILLEM #### [facility] [address] [place] [address] Dr. Darlene Lucero Potassium [Moles/Vol] 4.3 mmol/L Normal 3.5-5.1 [facility] Comment on above: Result Comment: SPEC IMEN SLIGHTLY HEMOLYZED MAY AFFECT K+ Performed By: #### U WILLEM #### [facility] [address] [place] [address] Dr. Darlene Lucero Sodium [Moles/Vol] 117 mmol/L Critically low 136-145 Th [facility] Comment on above: Result Comment: TEST REPEATED CRITICAL VALUE VERIFIED Performed By: #### U WILLEM #### [facility] [address] [place] [address] Dr. Darlene Lucero Urea nitrogen [Mass/Vol] 9.0 mg/dL Normal 7.0-18.0 [facility] Comment on above: Performed By: #### U WILLEM #### [facility] [address] [place] [address] Dr. Darlene Lucero Urea nitrogen/Creatinine [Mass ratio] 15.8 mg/mg Normal [facility] Comment on above: Performed By: #### U WILLEM #### [facility] [address] [place] [address] Dr. Darlene Lucero Anion gap [Moles/Vol] 12.9 mmol/L Normal [facility] Comment on above: Performed By: #### O SMOU #### [facility] [address] [place] [address] Dr. Darlene Lucero Calcium [Mass/Vol] 8.3 mg/dL Critically low 8.5-10.1 Th [facility] Comment on above: Performed By: #### O SMOU #### [facility] [address] [place] [address] Dr. Darlene Lucero Chloride [Moles/Vol] 84 mmol/L Critically low 98-107 [facility] Comment on above: Result Comment: test repeated critical value verified Performed By: #### O SMOU #### [facility] [address] [place] [address] Dr. Darlene Lucero CO2 [Moles/Vol] 25.1 mmol/L Normal 21.0-32.0 [facility] Comment on above: Performed By: #### O SMOU #### [facility] [address] [place] [address] Dr. Darlene Lucero Creatinine [Mass/Vol] 0.56 mg/dL Normal 0.55-1.02 [facility] Comment on above: Performed By: #### O SMOU #### [facility] [address] [place] [address] Dr. Darlene Lucero EGFR-AF ZAMBIAN >60 Normal >=60 [facility] Comment on above: Performed By: #### O SMOU #### [facility] [address] [place] [address] Dr. Darlene Lucero EGFR-NON AF ZAMBIAN >60 Normal >=60 [facility] Comment on above: Performed By: #### O SMOU #### [facility] [address] [place] [address] Dr. Darlene Lucero Potassium [Moles/Vol] 3.9 mmol/L Normal 3.5-5.1 [facility] Comment on above: Performed By: #### O SMOU #### [facility] [address] [place] [address] Dr. Darlene Lucero Sodium [Moles/Vol] 116 mmol/L Critically low 136-145 Th [facility] Comment on above: Result Comment: test repeated critical value verified Performed By: #### O SMOU #### [facility] [address] [place] [address] Dr. Darlene Lucero Urea nitrogen [Mass/Vol] 10.0 mg/dL Normal 7.0-18.0 [facility] Comment on above: Performed By: #### O SMOU #### [facility] [address] [address] [address] Darlene Lucero Urea nitrogen/Creatinine [Mass ratio] 17.9 mg/mg Normal [facility] Comment on above: Performed By: #### O SMOU #### [facility] [address] [place] [address] Dr. Darlene Lucero Anion gap [Moles/Vol] 11.9 mmol/L Normal [facility] Comment on above: Performed By: #### U WILLEM #### [facility] [address] [place] [address] Dr. Darlene Lucero Calcium [Mass/Vol] 8.4 mg/dL Critically low 8.5-10.1 Th [facility] Comment on above: Performed By: #### U WILLEM #### [facility] [address] [place] [address] Dr. Darlene Lucero Chloride [Moles/Vol] 81 mmol/L Critically low 98-107 [facility] Comment on above: Result Comment: TEST REPEATED CRITICAL VALUE VERIFIED Performed By: #### U WILLEM #### [facility] [address] [place] [address] Dr. Darlene Lucero CO2 [Moles/Vol] 27.8 mmol/L Normal 21.0-32.0 [facility] Comment on above: Performed By: #### U WILLEM #### [facility] [address] [place] [address] Dr. Darlene Lucero Creatinine [Mass/Vol] 0.60 mg/dL Normal 0.55-1.02 [facility] Comment on above: Performed By: #### U WILLEM #### [facility] [address] [place] [address] Dr. Darlene Lucero EGFR-AF ZAMBIAN >60 Normal >=60 [facility] Comment on above: Performed By: #### U WILLEM #### [facility] [address] [place] [address] Dr. Darlene Lucero EGFR-NON AF ZAMBIAN >60 Normal >=60 [facility] Comment on above: Performed By: #### U WILLEM #### [facility] [address] [address] [address] Darlene Lucero Glucose [Mass/Vol] 131 mg/dL Critically high 74-106 [facility] Comment on above: Performed By: #### U WILLEM #### [facility] [address] [address] [address] Darlene Lucero Potassium [Moles/Vol] 3.7 mmol/L Normal 3.5-5.1 [facility] Comment on above: Performed By: #### U WILLEM #### [facility] [address] [place] [address] Dr. Darlene Lucero Sodium [Moles/Vol] 117 mmol/L Critically low 136-145 Th [facility] Comment on above: Result Comment: TEST REPEATED CRITICAL VALUE VERIFIED Performed By: #### U WILLEM #### [facility] [address] [place] [address] Dr. Darlene Lucero Urea nitrogen [Mass/Vol] 9.0 mg/dL Normal 7.0-18.0 [facility] Comment on above: Performed By: #### U WILLEM #### [facility] [address] [place] [address] Dr. Darlene Lucero Urea nitrogen/Creatinine [Mass ratio] 15.0 mg/mg Normal [facility] Comment on above: Performed By: #### U WILLEM #### [facility] [address] [address] [address] Darlene Lucero Anion gap [Moles/Vol] 10.9 mmol/L [facility] Comment on above: Performed By: #### B MP #### [facility] [address] [place] [address] Dr. Darlene Lucero Calcium [Mass/Vol] 8.3 mg/dL Critically low 8.5-10.1 Th [facility] Comment on above: Performed By: #### B MP #### [facility] [address] [address] [address] Darlene Lucero Chloride [Moles/Vol] 87 mmol/L Critically low 98-107 [facility] Comment on above: Performed By: #### B MP #### [facility] [address] [address] [address] Darlene Lucero CO2 [Moles/Vol] 25.7 mmol/L Normal 21.0-32.0 [facility] Comment on above: Performed By: #### B MP #### [facility] [address] [address] [address] Darlene Lucero Creatinine [Mass/Vol] 0.69 mg/dL Normal 0.55-1.02 [facility] Comment on above: Performed By: #### B MP #### [facility] [address] [address] [address] Darlene Lucero EGFR-AF ZAMBIAN >60 Normal >=60 [facility] Comment on above: Performed By: #### B MP #### [facility] [address] [address] [address] Darlene Lucero EGFR-NON AF ZAMBIAN >60 Normal >=60 [facility] Comment on above: Performed By: #### B MP #### [facility] [address] [address] [address] Darlene Lucero Glucose [Mass/Vol] 139 mg/dL Critically high 74-106 [facility] Comment on above: Performed By: #### B MP #### [facility] [address] [address] [address] Darlene Lucero Potassium [Moles/Vol] 3.7 mmol/L Normal 3.5-5.1 [facility] Comment on above: Performed By: #### B MP #### [facility] [address] [address] [address] Darlene Lucero Sodium [Moles/Vol] 121 mmol/L Critically low 136-145 Th [facility] Comment on above: Result Comment: Test Repeated. Critical Value Verified Performed By: #### B MP #### [facility] [address] [address] [address] Darlene Lucero Urea nitrogen [Mass/Vol] 9.0 mg/dL Normal 7.0-18.0 [facility] Comment on above: Performed By: #### B MP #### [facility] [address] [address] [address] Darlene Lucero Urea nitrogen/Creatinine [Mass ratio] 13.0 mg/mg Normal [facility] Comment on above: Performed By: #### B MP #### [facility] [address] [address] [address] Darlene Lucero Anion gap [Moles/Vol] 12.7 mmol/L Normal [facility] Comment on above: Performed By: #### O SMOU #### [facility] [address] [address] [address] Darlene Lucero Calcium [Mass/Vol] 8.0 mg/dL Critically low 8.5-10.1 Th [facility] Comment on above: Performed By: #### O SMOU #### [facility] [address] [address] [address] Darlene Lucero Chloride [Moles/Vol] 87 mmol/L Critically low 98-107 [facility] Comment on above: Performed By: #### O SMOU #### [facility] [address] [address] [address] Darlene Lucero CO2 [Moles/Vol] 24.0 mmol/L Normal 21.0-32.0 [facility] Comment on above: Performed By: #### O SMOU #### [facility] [address] [address] [address] Darlene Lucero Creatinine [Mass/Vol] 0.52 mg/dL Critically low 0.55-1.02 [facility] Comment on above: Performed By: #### O SMOU #### [facility] [address] [address] [address] Darlene Lucero EGFR-AF ZAMBIAN >60 Normal >=60 [facility] Comment on above: Performed By: #### O SMOU #### [facility] [address] [place] [address] Dr. Darlene Lucero EGFR-NON AF ZAMBIAN >60 Normal >=60 [facility] Comment on above: Performed By: #### O SMOU #### [facility] [address] [place] [address] Dr. Darlene Lucero Glucose [Mass/Vol] 158 mg/dL Critically high 74-106 [facility] Comment on above: Performed By: #### O SMOU #### [facility] [address] [place] [address] Dr. Darlene Lucero Potassium [Moles/Vol] 3.7 mmol/L Normal 3.5-5.1 [facility] Comment on above: Performed By: #### O SMOU #### [facility] [address] [place] [address] Dr. Darlene Lucero Sodium [Moles/Vol] 120 mmol/L Critically low 136-145 Th [facility] Comment on above: Result Comment: Test Repeated. Critical Value Verified Performed By: #### O SMOU #### [facility] [address] [place] [address] Dr. Darlene Lucero Urea nitrogen [Mass/Vol] 9.0 mg/dL Normal 7.0-18.0 [facility] Comment on above: Performed By: #### O SMOU #### [facility] [address] [place] [address] Dr. Darlene Lucero Urea nitrogen/Creatinine [Mass ratio] 17.3 mg/mg Normal [facility] Comment on above: Performed By: #### O SMOU #### [facility] [address] [place] [address] Dr. Darlene Lucero BNPon 08-31-2021 Natriuretic peptide B (Bld) [Mass/Vol] 898.0 pg/mL Normal <=900.0 [facility] Comment on above: Performed By: #### B MP #### [facility] [address] [place] [address] Dr. Darlene Lucero CBC AUTO DIFFon 08-31-2021 BASO # 0.0 103/ul Normal 0.0-0.1 [facility] Comment on above: Performed By: #### B MP #### [facility] [address] [address] [address] Darlene Lucero Basophils/100 WBC (Bld) 0.0 % Critically low 0.2-2.0 [facility] Comment on above: Performed By: #### B MP #### [facility] [address] [address] [address] Darlene Lucero EO # 0.0 103/ul Normal 0.0-0.7 [facility] Comment on above: Performed By: #### B MP #### [facility] [address] [address] [address] Darlene Lucero Eosinophils/100 WBC (Bld) 0.0 % Critically low 0.9-7.0 [facility] Comment on above: Performed By: #### B MP #### [facility] [address] [place] [address] Dr. Darlene Lucero Erythrocyte distribution width (RBC) [Ratio] 12.0 % Normal 11.0-15.0 [facility] Comment on above: Performed By: #### B MP #### [facility] [address] [place] [address] Dr. Darlene Lucero Hematocrit (Bld) [Volume fraction] 35.7 % Critically low 36.0-48.0 [facility] Comment on above: Performed By: #### B MP #### [facility] [address] [place] [address] Dr. Dralene Lucero Hemoglobin (Bld) [Mass/Vol] 12.5 g/dL Normal 12.0-16.0 [facility] Comment on above: Performed By: #### B MP #### [facility] [address] [address] [address] Darlene Lucero IG # 0.03 10e3/ul Normal 0.00-0.03 [facility] Comment on above: Performed By: #### B MP #### [facility] [address] [address] [address] Darlene Lucero IG % 0.4 % Normal 0.0-0.5 [facility] Comment on above: Performed By: #### B MP #### [facility] [address] [place] [address] Dr. Darlene Lucero LYMPH # 1.5 103/ul Normal 1.2-3.8 [facility] Comment on above: Performed By: #### B MP #### [facility] [address] [place] [address] Dr. Darlene Lucero Lymphocytes/100 WBC (Bld) 22.3 % Normal 20.5-60.0 [facility] Comment on above: Performed By: #### B MP #### [facility] [address] [place] [address] Dr. Darlene Lucero MANUAL DIFF REQ NO Normal [facility] Comment on above: Performed By: #### B MP #### [facility] [address] [place] [address] Dr. Darlene Lucero MCH (RBC) [Entitic mass] 29.6 pg Normal 26.7-34.0 [facility] Comment on above: Performed By: #### B MP #### [facility] [address] [place] [address] Dr. Darlene Lucero MCHC (RBC) [Mass/Vol] 35.0 g/dL Normal 29.9-35.2 [facility] Comment on above: Performed By: #### B MP #### [facility] [address] [place] [address] Dr. Darlene Lucero MCV (RBC) [Entitic vol] 84.6 fL Normal 81.0-99.0 [facility] Comment on above: Performed By: #### B MP #### [facility] [address] [place] [address] Dr. Darlene Lucero MONO # 0.8 103/ul Normal 0.3-0.8 [facility] Comment on above: Performed By: #### B MP #### [facility] [address] [place] [address] Dr. Darlene Lucero Monocytes/100 WBC (Bld) 11.5 % Normal 1.7-12.0 [facility] Comment on above: Performed By: #### B MP #### [facility] [address] [address] [address] Darlene Lucero NEUT # 4.5 103/ul Normal 1.4-6.5 [facility] Comment on above: Performed By: #### B MP #### [facility] [address] [address] [address] Darlene Lucero Neutrophils/100 WBC (Bld) 65.8 % Normal 43.0-75.0 [facility] Comment on above: Performed By: #### B MP #### [facility] [address] [place] [address] Dr. Darlene Lucero Platelet mean volume (Bld) [Entitic vol] 7.9 fL Critically low 9.5-13.5 [facility] Comment on above: Performed By: #### B MP #### [facility] [address] [place] [address] Dr. Darlene Lucero PLT 457 103/ul Critically high 150-450 [facility] Comment on above: Performed By: #### B MP #### [facility] [address] [place] [address] Dr. Darlene Lucero RBC 4.22 106/ul Normal 4.20-5.40 [facility] Comment on above: Performed By: #### B MP #### [facility] [address] [place] [address] Dr. Darlene Lucero WBC 6.9 103/ul Normal 4.0-11.0 [facility] Comment on above: Performed By: #### B MP #### [facility] [address] [place] [address] Dr. Darlene Lucero CREATININE URINEon 2 URINE CREAT 91.14 mg/dL Normal 20.00-300.00 [facility] Comment on above: Performed By: #### C DAPHNE CALDERA #### [facility] [address] [place] [address] Dr. Darlene Lucero ER URINE PROFILEon 2 Bilirubin Ql (U) Negative Normal NEGATIVE [facility] Comment on above: Performed By: #### U WILLEM #### [facility] [address] [place] [address] Dr. Darlene Lucero Clarity (U) CLEAR Normal CLEAR [facility] Comment on above: Performed By: #### U WILLEM #### [facility] [address] [place] [address] Dr. Darlene Lucero Color (U) LT. YELLOW Normal YELLOW [facility] Comment on above: Performed By: #### U WILLEM #### [facility] [address] [place] [address] Dr. Darlene BAKER A micrscopic examination will be performed if indicated. Normal [facility] Comment on above: Performed By: #### U WILLEM #### [facility] [address] [place] [address] Dr. Darlene Lucero Glucose Ql (U) Negative Normal NEGATIVE [facility] Comment on above: Performed By: #### U WILLEM #### [facility] [address] [place] [address] Dr. Darlene Lucero Hemoglobin Ql (U) TRACE-INTACT Abnormal NEGATIVE [facility] Comment on above: Performed By: #### U WILLEM #### [facility] [address] [place] [address] Dr. Darlene Lucero Ketones Ql (U) 15 mg/dl Abnormal NEGATIVE [facility] Comment on above: Performed By: #### U WILLEM #### [facility] [address] [place] [address] Dr. Darlene Lucero LEUKOCYTES Negative Normal NEGATIVE [facility] Comment on above: Performed By: #### U WILLEM #### [facility] [address] [place] [address] Dr. Darlene Lucero Nitrite Ql (U) Negative Normal NEGATIVE [facility] Comment on above: Performed By: #### U WILLEM #### [facility] [address] [place] [address] Dr. Darlene Lucero pH (U) 6.5 [pH] Normal 5-9 [facility] Comment on above: Performed By: #### U WILLEM #### [facility] [address] [place] [address] Dr. Darlene Lucero Protein (U) [Mass/Vol] 30 mg/dL Abnormal NEGATIVE/ TRACE [facility] Comment on above: Performed By: #### U WILLEM #### [facility] [address] [place] [address] Dr. Darlene Lucero SPEC GRAVITY 1.020 Normal 1.005-<=1.025 [facility] Comment on above: Performed By: #### U WILLEM #### [facility] [address] [place] [address] Dr. Darlene Lucero UR MICRO IND INDICATED Normal [facility] Comment on above: Performed By: #### U WILLEM #### [facility] [address] [place] [address] Dr. Darlene Lucero Urobilinogen Qn (U) 0.2 {Claudia'U}/dL Normal 0.2 - 1. 0 [facility] Comment on above: Performed By: #### U WILLEM #### [facility] Laboratory [address] [place] [address] Dr. Darlene Lucero POINT OF CARE GLUCOSEon 08-14 Glucose [Mass/Vol] 147 mg/dL Critically high 74-106 [facility] Comment on above: Performed By: #### B MP #### [facility] [address] [place] [address] Dr. Darlene Lucero PROF CHEM 8 (BAS METB)on Anion gap [Moles/Vol] 13.4 mmol/L Normal [facility] Comment on above: Performed By: #### U WILLEM #### [facility] [address] [place] [address] Dr. Darlene Lucero Calcium [Mass/Vol] 8.2 mg/dL Critically low 8.5-10.1 Th [facility] Comment on above: Performed By: #### U WILLEM #### [facility] [address] [place] [address] Dr. Darlene Lucero Chloride [Moles/Vol] 86 mmol/L Critically low 98-107 [facility] Comment on above: Performed By: #### U WILLEM #### [facility] [address] [place] [address] Dr. Darlene Lucero CO2 [Moles/Vol] 23.4 mmol/L Normal 21.0-32.0 [facility] Comment on above: Performed By: #### U WILLEM #### [facility] [address] [place] [address] Dr. Darlene Lucero Creatinine [Mass/Vol] 0.51 mg/dL Critically low 0.55-1.02 [facility] Comment on above: Performed By: #### U WILLEM #### [facility] [address] [address] [address] Darlene Lucero EGFR-AF ZAMBIAN >60 Normal >=60 [facility] Comment on above: Performed By: #### U WILLEM #### [facility] [address] [place] [address] Dr. Darlene Lucero EGFR-NON AF ZAMBIAN >60 Normal >=60 [facility] Comment on above: Performed By: #### U WILLEM #### [facility] [address] [place] [address] Dr. Darlene Lucero Glucose [Mass/Vol] 145 mg/dL Critically high 74-106 T [facility] Comment on above: Performed By: #### U WILLEM #### [facility] [address] [place] [address] Dr. Darlene Lucero Potassium [Moles/Vol] 3.8 mmol/L Normal 3.5-5.1 [facility] Comment on above: Performed By: #### U WILLEM #### [facility] [address] [place] [address] Dr. Darlene Lucero Sodium [Moles/Vol] 119 mmol/L Critically low 136-145 Th [facility] Comment on above: Result Comment: Test Repeated. Critical Value Verified Performed By: #### U WILLEM #### [facility] [address] [place] [address] Dr. Darlene Lucero Urea nitrogen [Mass/Vol] 11.0 mg/dL Normal 7.0-18.0 [facility] Comment on above: Performed By: #### U WILLEM #### [facility] [address] [place] [address] Dr. Darlene Lucero Urea nitrogen/Creatinine [Mass ratio] 21.6 mg/mg Normal [facility] Comment on above: Performed By: #### U WILLEM #### [facility] [address] [place] [address] Dr. Darlene Lucero Anion gap [Moles/Vol] 11.9 mmol/L Normal [facility] Comment on above: Performed By: #### B MP #### [facility] [address] [place] [address] Dr. Darlene Lucero Calcium [Mass/Vol] 8.0 mg/dL Critically low 8.5-10.1 Th [facility] Comment on above: Performed By: #### B MP #### [facility] [address] [place] [address] Dr. Darlene Lucero Chloride [Moles/Vol] 83 mmol/L Critically low 98-107 [facility] Comment on above: Performed By: #### B MP #### [facility] [address] [place] [address] Dr. Darlene Lucero CO2 [Moles/Vol] 24.9 mmol/L Normal 21.0-32.0 [facility] Comment on above: Performed By: #### B MP #### [facility] [address] [place] [address] Dr. Darlene Lucero Creatinine [Mass/Vol] 0.61 mg/dL Normal 0.55-1.02 [facility] Comment on above: Performed By: #### B MP #### [facility] [address] [place] [address] Dr. Darlene Lucero EGFR-AF ZAMBIAN >60 Normal >=60 [facility] Comment on above: Performed By: #### B MP #### [facility] [address] [address] [address] Darlene Lucero EGFR-NON AF ZAMBIAN >60 Normal >=60 [facility] Comment on above: Performed By: #### B MP #### [facility] [address] [place] [address] Dr. Darlene Lucero Glucose [Mass/Vol] 212 mg/dL Critically high 74-106 [facility] Comment on above: Performed By: #### B MP #### [facility] [address] [address] [address] Darlene Lucero Potassium [Moles/Vol] 3.7 mmol/L Normal 3.5-5.1 [facility] Comment on above: Performed By: #### B MP #### [facility] [address] [address] [address] Darlene Lucero Sodium [Moles/Vol] 116 mmol/L Critically low 136-145 Th [facility] Comment on above: Performed By: #### B MP #### [facility] [address] [address] [address] Darlene Lucero Urea nitrogen [Mass/Vol] 12.0 mg/dL Normal 7.0-18.0 [facility] Comment on above: Performed By: #### B MP #### [facility] [address] [address] [address] Darlene Lucero Urea nitrogen/Creatinine [Mass ratio] 19.7 mg/mg Normal [facility] Comment on above: Performed By: #### B MP #### [facility] [address] [address] [address] Darlene Lucero Anion gap [Moles/Vol] 11.7 mmol/L Normal [facility] Comment on above: Performed By: #### B MP #### [facility] [address] [address] [address] Darlene Lucero Calcium [Mass/Vol] 8.0 mg/dL Critically low 8.5-10.1 [place] Comment on above: Performed By: #### B MP #### [facility] [address] [address] [address] Darlene Lucero Chloride [Moles/Vol] 86 mmol/L Critically low 98-107 [facility] Comment on above: Performed By: #### B MP #### [facility] [address] [address] [address] Darlene Lucero CO2 [Moles/Vol] 27.6 mmol/L Normal 21.0-32.0 [facility] Comment on above: Performed By: #### B MP #### [facility] [address] [address] [address] Darlene Lucero Creatinine [Mass/Vol] 0.57 mg/dL Normal 0.55-1.02 [facility] Comment on above: Performed By: #### B MP #### [facility] [address] [address] [address] Darlene Lucero EGFR-AF ZAMBIAN >60 Normal >=60 [facility] Comment on above: Performed By: #### B MP #### [facility] [address] [place] [address] Dr. Darlene Lucero EGFR-NON AF ZAMBIAN >60 Normal >=60 [facility] Comment on above: Performed By: #### B MP #### [facility] [address] [place] [address] Dr. Darlene Lucero Glucose [Mass/Vol] 152 mg/dL Critically high 74-106 T [facility] Comment on above: Performed By: #### B MP #### [facility] [address] [address] [address] Darlene Lucero Potassium [Moles/Vol] 4.3 mmol/L Normal 3.5-5.1 [facility] Comment on above: Performed By: #### B MP #### [facility] [address] [place] [address] Dr. Darlene Lucero Sodium [Moles/Vol] 120 mmol/L Critically low 136-145 Th [facility] Comment on above: Performed By: #### B MP #### [facility] [address] [address] [address] Darlene Lucero Urea nitrogen [Mass/Vol] 12.0 mg/dL Normal 7.0-18.0 [facility] Comment on above: Performed By: #### B MP #### [facility] [address] [place] [address] Dr. Darlene Lucero Urea nitrogen/Creatinine [Mass ratio] 21.1 mg/mg Normal [facility] Comment on above: Performed By: #### B MP #### [facility] [address] [place] [address] Dr. Darlene Lucero Anion gap [Moles/Vol] 10.2 mmol/L Normal [facility] Comment on above: Performed By: #### B MP #### [facility] [address] [place] [address] Dr. Darlene Lucero Calcium [Mass/Vol] 8.6 mg/dL Normal 8.5-10.1 [facility] Comment on above: Performed By: #### B MP #### [facility] [address] [address] [address] Darlene Lucero Chloride [Moles/Vol] 78 mmol/L Critically low 98-107 [facility] Comment on above: Performed By: #### B MP #### [facility] [address] [place] [address] Dr. Darlene Lucero CO2 [Moles/Vol] 29.6 mmol/L Normal 21.0-32.0 [facility] Comment on above: Performed By: #### B MP #### [facility] [address] [place] [address] Dr. Darlene Lucero Creatinine [Mass/Vol] 0.70 mg/dL Normal 0.55-1.02 [facility] Comment on above: Performed By: #### B MP #### [facility] [address] [place] [address] Dr. Darlene Lucero EGFR-AF ZAMBIAN >60 Normal >=60 [facility] Comment on above: Performed By: #### B MP #### [facility] [address] [place] [address] Dr. Darlene Lucero EGFR-NON AF ZAMBIAN >60 Normal >=60 [facility] Comment on above: Performed By: #### B MP #### [facility] [address] [address] [address] Darlene Lucero Glucose [Mass/Vol] 116 mg/dL Critically high 74-106 [facility] Comment on above: Performed By: #### B MP #### [facility] [address] [place] [address] Dr. Darlene Lucero Potassium [Moles/Vol] 3.8 mmol/L Normal 3.5-5.1 [facility] Comment on above: Performed By: #### B MP #### [facility] [address] [address] [address] Darlene Lucero Sodium [Moles/Vol] 114 mmol/L Critically low 136-145 Th [facility] Comment on above: Performed By: #### B MP #### [facility] [address] [id number] [address] Darlene Lucero Urea nitrogen [Mass/Vol] 17.0 mg/dL Normal 7.0-18.0 [facility] Comment on above: Performed By: #### B MP #### [facility] [address] [address] [address] Darlene Lucero Urea nitrogen/Creatinine [Mass ratio] 24.3 mg/mg Normal [facility] Comment on above: Performed By: #### B MP #### [facility] [address] [address] [address] Darlene Lucero SODIUM RANDOM URINEon 2021 Sodium (U) [Moles/Vol] 61 mmol/L Normal 30-90 [facility] Comment on above: Performed By: #### U WILLEM #### [facility] [address] [address] [address] Darlene Lucero TROPONIN, HIGH SENSITIVITYon 08-31-2021 HSTROP 14.6 pg/mL Normal 4.0-51.3 [facility] Comment on above: Result Comment: CUT- OFF POINTS HAVE BEEN ESTABLISHED BASED ON THE FOURTH UNIVERSAL DEFINITIONS OF MYOCARDIAL INFARCTION. THE UPPER REFERENCE LIMIT (URL) OF TROPONIN, DEFINED THE 99TH PERCENTILE OF cTnI DISTRIBUTION IN A REFERENCE POPULATION, HAS BEEN CONFIRMED THE DECISION THRESHOLD FOR [place] DIAGNOSIS. Performed By: #### B MP #### [facility] [address] [address] [address] Darlene Lucero TSHon 08-31-2021 TSH 1.053 uIU/mL Normal 0.358-3.740 [facility] Comment on above: Performed By: #### B MP #### [facility] [address] [address] [address] Darlene Lucero TSH RANGE SEE BELOW Normal [facility] Comment on above: Result Comment: <0.3 4 UIU/ml HYPERTHYROID 0.34-5.60 UIU/ml EUTHYROID >5.60 UIU/ml HYPOTHYROID Performed By: #### B MP #### [facility] [address] [place] [address] Dr. Darlene Lucero URIC ACID SERUMon 08-31-2021 Urate [Mass/Vol] 1.4 mg/dL Critically low 2.6-6.0 [facility] Comment on above: Performed By: #### U WILLEM #### [facility] [address] [place] [address] Dr. Darlene Lucero URINE MICROSCOPIC ONLYon BACTERIA NONE SEEN Normal NONE SEEN [facility] Comment on above: Performed By: #### O SMOU #### [facility] [address] [place] [address] Dr. Darlene Lucero Bacteria identified Cx Nom (U) NOT INDICATED Normal [facility] Comment on above: Performed By: #### O SMOU #### [facility] [address] [place] [address] Dr. Darlene Lucero CAST NONE SEEN Normal NONE SEEN [facility] Comment on above: Performed By: #### O SMOU #### [facility] [address] [place] [address] Dr. Darlene Lucero Crystals LM Nom (Urine sed) NONE SEEN Normal NONE SEEN [facility] Comment on above: Performed By: #### O SMOU #### [facility] [address] [place] [address] Dr. Darlene Lucero Epithelial cells LM Ql (Urine sed) FEW Abnormal NONE SEEN /RARE [facility] Comment on above: Performed By: #### O SMOU #### [facility] [address] [place] [address] Dr. Darlene Lucero MUCOUS TRACE Abnormal NONE SEEN [facility] Comment on above: Performed By: #### O SMOU #### [facility] [address] [place] [address] Dr. Darlene Lucero RBC 0-2 Normal 0-2 [facility] Comment on above: Performed By: #### O SMOU #### [facility] [address] [address] [address] Darlene Lucero WBC NONE SEEN Normal NONE SEEN [facility] Comment on above: Performed By: #### O SMOU #### [facility] [address] [address] [address] Darlene Lucero URINE T PROTEIN CREAT RATIOo n 08-31-2021 Protein (U) [Mass/Vol] 67.7 mg/dL Critically high <=12.0 [facility] Comment on above: Performed By: #### B MP #### [facility] [address] [address] [address] Darlene Lucero UR PROT CREAT RAT 0.75 Normal [facility] Comment on above: Performed By: #### B MP #### [facility] [address] [address] [address] Darlene Lucero URINE CREAT 89.84 mg/dL Normal 20.00-300.00 [facility] Comment on above: Performed By: #### B MP #### [facility] [address] [place] [address] Dr. Darlene Lucero XR CHEST 1 Von [...] CHAYITO SOLIS Date: 2021-08-31 09:07 Normal [facility] Vital Signs Date Time Vital Sign Value Performing Clinician Faci lity 11-07-2024 08:38-0400 Body height 157.5 cm Flaco Resendiz MD Work Phone: [facility] 11-07-2024 08:38-0400 Body mass index (BMI) [Ratio] 26.52 kg/m2 Flaco Resendiz MD Work Phone: [facility] 11-07-2024 08:38-0400 Body weight 65.77 kg Flaco Resendiz MD Work Phone: [facility] 11-07-2024 08:38-0400 Diastolic blood pressure 72 mm[Hg] Flaco Resendiz MD Work Phone: [facility] 11-07-2024 08:38-0400 Heart rate 88 /min Flaco Resendiz MD Work Phone: [facility] 11-07-2024 08:38-0400 SaO2% (BldA) [Mass fraction] 97 % Flaco Resendiz MD Work Phone: [facility] 11-07-2024 08:38-0400 Systolic blood pressure 135 mm[Hg] Flaco Resendiz MD Work Phone: [facility] 07-18-2024 08:22-0400 Body height 157.5 cm Flaco Resendiz MD Work Phone: [facility] 07-18-2024 08:22-0400 Body mass index (BMI) [Ratio] 26.05 kg/m2 Flaco Resendiz MD Work Phone: [facility] 07-18-2024 08:22-0400 Body weight 64.59 kg Flaco Resendiz MD Work Phone: [facility] 07-18-2024 08:22-0400 Diastolic blood pressure 77 mm[Hg] Flaco Resendiz MD Work Phone: [facility] 07-18-2024 08:22-0400 Heart rate 76 /min Flaco Resendiz MD Work Phone: [facility] 07-18-2024 08:22-0400 Systolic blood pressure 139 mm[Hg] Flaco Resendiz MD Work Phone: [facility] 04-11-2024 10:48-0500 Body height 157.5 cm Flaco Resendiz MD Work Phone: [facility] 04-11-2024 10:48-0500 Body mass index (BMI) [Ratio] 26.12 kg/m2 Flaco Resendiz MD Work Phone: [facility] 04-11-2024 10:48-0500 Body weight 64.77 kg Flaco Resendiz MD Work Phone: [facility] 04-11-2024 10:48-0500 Diastolic blood pressure 73 mm[Hg] Flaco Resendiz MD Work Phone: [facility] 04-11-2024 10:48-0500 Heart rate 72 /min Flaco Resendiz MD Work Phone: [facility] 04-11-2024 10:48-0500 SaO2% (BldA) [Mass fraction] 98 % Flaco Resendiz MD Work Phone: [facility] 04-11-2024 10:48-0500 Systolic blood pressure 138 mm[Hg] Flaco Resendiz MD Work Phone: [facility] 01-04-2024 09:25-0400 Body height 157.5 cm Flaco Resendiz MD Work Phone: [facility] 01-04-2024 09:25-0400 Body mass index (BMI) [Ratio] 25.97 kg/m2 Flaco Resendiz MD Work Phone: [facility] 01-04-2024 09:25-0400 Body weight 64.41 kg Flaco Resendiz MD Work Phone: [facility] 01-04-2024 09:25-0400 Diastolic blood pressure 76 mm[Hg] Flaco Resendiz MD Work Phone: [facility] 01-04-2024 09:25-0400 Systolic blood pressure 135 mm[Hg] Flaco Resendiz MD Work Phone: [facility] Healthcare Encounters Encounter Date Encounter Type Care Provider Facility Start: 11-07-2024 End: 11-07-2024 Office outpatient visit 25 minutes Flaco Resendiz MD Work Phone: [facility] Comment on above: Panlobular emphysema (HCC) (Primary Dx); Acute non-recurrent sinusitis, unspecified location; Active cochlear Meniere's disease, unspecified laterality Start: 11-07-2024 End: 11-07-2024 ambulatory FLACO RESENDIZ Not Available Start: 10-10-2024 End: 10-10-2024 Clinisync Result Encounter Flaco Resendiz MD Work Phone: [facility] Unsolicited Start: 10-10-2024 End: 10-10-2024 Clinisync Result Encounter Flaco Resendiz MD Work Phone: [facility] Unsolicited Start: 07-18-2024 End: 07-18-2024 Office outpatient visit [...] Acquired hypothyroidism (CMS/HCC); Pure hypercholesterolemia (CMS/HCC) Start: 05-18-2023 Clinisync Result Encounter José Miguel [...] Date Procedure Procedure Detail Performing Clinician Start: 10-10-2024 ALL BASIC METABOLIC PANEL Flaco Resendiz MD Work Phone: Start: 03-21-2024 ALL CBC WITH AUTO DIFF Flaco Resendiz MD Work Phone: Start: 05-18-2023 ALL BASIC METABOLIC PANEL Flaco Resendiz MD Work Phone: Plan of Treatment Date Care Activity Detail Author Start: 12-15-2024 Influenza vaccination Influenza Vaccine (#1) [facility] Start: 10-24-2024 End: 10-24-2024 Telemedicine consultation with patient 10/24/2024 8:30 AM EDT Telemedicine [facility] [address] [place] [id number] Flaco Resendiz MD [address] [place] [address] [facility] Start: 10-17-2024 End: 07-18-2025 Basic metabolic 1998 panel - Serum or Plasma Basic metabolic panel Lab Routine Hyponatremia Expected: 10/17/2024 (Approximate), Expires: 07/18/2025 [facility] Work Phone: Comment on above: Expected: 10/17/2024 (Approximate), Expi res: 07/18/2025 Start: 07-18-2024 End: 07-18-2024 Telemedicine consultation with patient 07/18/2024 8:30 AM EDT Telemedicine [facility] [address] [facility] [address] [place] [id number] Flaco Resendiz MD [address] [facility] [address] [place] [address] [facility] Start: 07-10-2024 End: 04-11-2025 CBC W Auto Differential panel - Blood CBC and differential Lab Routine Hyponatremia Pure hypercholesterolemia (CMS/HCC) Expected: 07/10/2024 (Approximate), Expires: 04/11/2025 [facility] Comment on above: Expected: 07/10/2024 (Approximate), Expi res: 04/11/2025 Start: 07-10-2024 End: 04-11-2025 Comprehensive metabolic 2000 panel - Serum or Plasma Comprehensive metabolic panel Lab Routine Hyponatremia Expected: 07/10/2024 (Approximate), Expires: 04/11/2025 [facility] Work Phone: Comment on above: Expected: 07/10/2024 (Approximate), Expi res: 04/11/2025 Start: 07-10-2024 End: 04-11-2025 Lipid 1996 panel - Serum or Plasma Lipid panel Lab Routine Pure hypercholesterolemia (CMS/HCC) Expected: 07/10/2024 (Approximate), Expires: 04/11/[address] [facility] Comment on above: Expected: 07/10/2024 (Approximate), Expi res: 04/11/2025 Start: 07-10-2024 End: 04-11-2025 TSH W/REFLEX TO FT4 TSH W/REFLEX TO FT4 Lab Routine Postablative hypothyroidism (CMS/HCC) Expected: 07/10/2024 (Approximate), Expires: 04/11/2025 [facility] Comment on above: Expected: 07/10/2024 (Approximate), Expi res: 04/11/2025 Start: 03-28-2024 End: 03-28-2024 Telemedicine consultation with patient 03/28/2024 9:00 AM EST Telemedicine [facility] [address] [facility] [address] [place] [phone] Flaco Resendiz MD [address] [facility] [address] [place], [place] [id number] [facility] Start: 03-16-2024 End: 01-03-2025 CBC W Auto Differential panel - Blood CBC and differential Lab Routine Panlobular emphysema (CMS/HCC) Essential hypertension (CMS/HCC) Acquired hypothyroidism (CMS/HCC) Expected: 03/16/2024 (Approximate), Expires: 01/03/2025 [facility] Work Phone: Comment on above: Expected: 03/16/2024 (Approximate), Expi res: 01/03/2025 Start: 03-16-2024 End: 01-03-2025 Comprehensive metabolic 2000 panel - Serum or Plasma Comprehensive metabolic panel Lab Routine Hyponatremia Essential hypertension (CMS/HCC) Expected: 03/16/2024 (Approximate), Expires: 01/03/2025 [facility] Healthcare Comment on above: Expected: 03/16/2024 (Approximate), Expi res: 01/03/2025 Start: 12-16-2023 Influenza vaccination Influenza Vaccine (#1) [facility] Start: 06-01-2023 End: 06-01-2023 Patient encounter procedure 06/01/2023 10:00 AM EST Office Visit [facility] [address] [facility] [address] [place] [id number] Flaco Resendiz MD [address] [facility] [address] [place] [address] [facility] Immunizations Immunization Date Immunization Notes Care Provider Fa [facility] 01-19-2024 influenza virus vacc ine, unspecified formulation Flaco Resendiz MD Work Phone: [facility] 05-18-2023 zoster vaccine recombinant Luz Resendiz MD Work Phone: [facility] 02-02-2023 Influenza, Seasonal, Quadrivalent, Adjuvanted Flaco Resendiz MD Work Phone: [facility] 02-02-2023 zoster vaccine recombinant Luz Resendiz MD Work Phone: [facility] 02-02-2023 influenza virus vacc ine, unspecified formulation Flaco Resendiz MD Work Phone: [facility] 01-13-2022 Influenza, High-dose Seasonal, Quadrivalent, Preservative Free Flaco Resendiz MD Work Phone: [facility] 01-29-2021 Influenza, High-dose Seasonal, Quadrivalent, Preservative Free Flaco Resendiz MD Work Phone: [facility] 02-28-2020 influenza, high dose seasonal, preservative-free Flaco Resendiz MD Work Phone: [facility] 02-28-2020 zoster vaccine recombinant Luz Resendiz MD Work Phone: [facility] 01-12-2019 influenza, high dose seasonal, preservative-free Flaco Resendiz MD Work Phone: [facility] 12-07-2017 Influenza, High-dose Seasonal, Quadrivalent, Preservative Free Flaco Resendiz MD Work Phone: [facility] 12-18-2016 influenza, high dose seasonal, preservative-free Flaco Resendiz MD Work Phone: [facility] 03-22-2016 pneumococcal conjuga te vaccine, 13 valent Flaco Resendiz MD Work Phone: [facility] 03-15-2016 influenza, injectabl e, quadrivalent, preservative free Flaco Resendiz MD Work Phone: [facility] 02-15-2015 influenza, injectabl e, quadrivalent, preservative free Flaco Resendiz MD Work Phone: [facility] 04-30-2012 pneumococcal polysaccharide vaccine, 23 valent Flaco Resendiz MD Work Phone: [facility] 01-14-2010 seasonal influenza, intradermal, preservative free Flaco Resendiz MD Work Phone: [facility] Payers Date Payer Category Payer Medicare [id number] 1958 Medicare [id number] 1945 Unknown [id number] 2.16.84 [id number] 1945 Unknown [id number] 2.16.84 [id number] 1946 Unknown [id number] 2.16.84 0.1.591301.3.579.2.593 1946 Unknown [id number] 2.16.84 0.1.106807.3.579.2.593 1946 Unknown [id number] 2.16.84 0.1.683700.3.579.2.593 1946 Unknown [id number] 2.16.84 0.1.025506.3.579.2.593 1946 Unknown [id number] 2.16.84 0.1.256526.3.579.2.593 1946 Unknown [id number] 2.16.8 40.1.072583.3.579.2.1259 1946 Unknown [id number] 2.16.84 [id number] 1946 Unknown [id number] 2.16.84 [id number] 1946 Unknown [id number] 2.16.84 [id number] Social History Date Type Detail Facility Start: 09-27-2022 End: 07-18-2024 Tobacco smoking status NHIS Ex-smoker [facility] End: 09-25-2018 History of tobacco use Current smoker [facility] End: 09-25-2018 History of tobacco use Cigarette Smoker [facility] Start: 09-27-2022 End: 03-17-2024 Cigarettes smoked current (pack per day) - Reported 0.5 [facility] Start: 09-27-2022 End: 07-18-2024 Tobacco use and exposure Smokeless tobacco non-user [facility] Start: 03-02-2023 End: 11-07-2024 Alcohol intake Lifetime non-drinker (finding) [facility] Start: 01-01-2023 End: 03-17-2024 Humiliation, Afraid, Rape, and Kick questionnaire [HARK] [facility] Within the last year , have [...] got money to buy more. Never true [facility] Start: 1945 Sex Assigned At Not on file [facility] Functional Status Date Assessment Result Facility 11-07-2024 Patient Health Quest ionnaire 2 item (PHQ-2) [Reported] [facility] History of Present illness Narrative 11-07-2024 Flaco Resendiz MD - 11/07/2024 8:30 AM EDT Note Date & Type Note Facility 11-07-2024 History of Presen t illness Narrative Images from the original note were not included. HPI Cough Additional comments: Patient has had recent increase in cough and dyspnea. She has baseline advanced COPD and is on chronic O2 2l by ID. She is responding to nebulized BD therapy. Needs refills as well Last edited by Flaco Resendiz MD on 11/07/2024 9:18 AM. Subjective Patient ID: Fiona Reece is a 79 y.o. female who presents for Cough (Patient has had recent increase in cough and dyspnea. She has baseline advanced COPD and is on chronic O2 2l by ID. She is responding to nebulized BD therapy. Needs refills as well). Fiona is on the phone for a 3 month follow up for her medication, and she is having issues with vertigo. Over the past 2 weeks, how often have you been bothered by any of the following problems? Little interest or pleasure in doing things: Not at all Feeling down, depressed, or hopeless: Not at all Patient Health Questionnaire-2 Score: 0 Current Outpatient Medications on File Prior to Visit Medication Sig Dispense Refill Ventolin HFA 108 (90 Base) MCG/ACT inhaler INHALE 2 PUFFS EVERY 6 (SIX) HOURS IF NEEDED FOR WHEEZING OR SHORTNESS OF BREATH 18 g 3 albuterol (2.5 MG/3ML) 0.083% nebulizer solution Take 3 mL (2.5 mg) by nebulization every 6 (six) hours if needed for wheezing or shortness of breath 75 mL 3 ALPRAZolam (Xanax) 0.5 MG tablet Take 1 tablet (0.5 mg) by mouth 3 (three) times a day as needed for anxiety 90 tablet 3 amLODIPine (Norvasc) 5 MG tablet TAKE ONE TABLET BY MOUTH DAILY 90 tablet 4 ibuprofen 200 MG tablet Take 200 mg by mouth every 6 (six) hours if needed. levothyroxine (Synthroid, Levoxyl) 88 MCG tablet TAKE ONE TABLET BY MOUTH DAILY 90 tablet 0 losartan (Cozaar) 50 MG tablet TAKE ONE [...] by mouth Daily 100 tablet 3 [DISCONTINUED] Yjpwqspnifk-Qhtpswcom-Yknzhd (Trelegy Ellipta) 100-62.5-25 MCG/ACT aerosol powder Inhale [...] Types: Cigarettes Quit date: 09/25/2018 Years since quittin.1 Smokeless tobacco: Never Vaping Use Vaping status: Never Used Substance Use Topics Alcohol use: Never Drug use: Defer No family history on file. 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 Respiratory: Positive for cough, shortness of breath and wheezing. Objective Physical Exam Constitutional: Comments: Frail appearing Pulmonary: Effort: Prolonged expiration present. Neurological: Mental Status: She is alert. Psychiatric: Mood and Affect: Mood normal. Behavior: Behavior normal. Thought Content: Thought content normal. Judgment: Judgment normal. Assessment/Plan Diagnoses and all orders for this visit: Panlobular emphysema (HCC) - Pqnvsydahsj-Gfjslsuvf-Oizumo (Trelegy Ellipta) 100-62.5-25 MCG/ACT aerosol powder ; Inhale 1 puff 1 (one) time each day at the same time Acute non-recurrent sinusitis, unspecified location - cefdinir (Omnicef) 300 MG capsule; Take 1 capsule (300 mg) by mouth in the morning and 1 capsule (300 mg) before bedtime. Do all this for 7 days. Active cochlear Meniere's disease, unspecified laterality - meclizine (Antivert) 12.5 MG tablet; Take 1 tablet (12.5 mg) by mouth 3 (three) times a day as needed for dizziness This office visit was spent in consultation regarding the patient's current medical problems, differential diagnoses, testing/imaging results, and treatment options. Greater than 25 minutes was spent in rbdc-ht-fbzk consultation and coordination of care. Follow up in about 3 months (around 02/07/2025) for Televisit. documented in this encounter [facility] History of Present illness Narrative 07-18-2024 [...] TABLET BY MOUTH DAILY 90 tablet 4 Vviegkyoevd-Ecutyiics-Raikgn (Trelegy Ellipta) 100-62.5-25 MCG/ACT aerosol powder Inhale [...] 0.55 - 1.02 mg/dL Final TB[facility] EGFR-AF ZAMBIAN 07/09/2024 >60 >=60 mL/min/1.73m 2 Final TBH EGFR-NON AF ZAMBIAN 07/09/2024 >60 >=60 mL/min/1.73m 2 Final BUN [...] or shortness of breath 18 g 3 Fwcdiuodtao-Uoeszamaw-Itcgvd (Trelegy Ellipta) 100-62.5-25 MCG/ACT aerosol powder Inhale [...] Surgical History: Procedure Laterality Date BREAST BIOPSY 1970 SECTION, LOW TRANSVERSE 1988 COMP PFT 2008 COPD THYROIDECTOMY 1998 Visit Vitals BP 138/73 [...] 0.55 - 1.02 mg/dL Final TBH EGFR-AF ZAMBIAN 03/21/2024 >60 >=60 mL/min/1.73m 2 Final TBH EGFR-NON AF ZAMBIAN 03/21/2024 >60 >=60 mL/min/1.73m 2 Final BUN [...] g) by mouth Daily 100 tablet 3 Ggekweiaqsb-Ujdsjahfo-Bhsfip (Trelegy Ellipta) 100-62.5-25 MCG/ACT aerosol powder Inhale [...] History: Diagnosis Date Anxiety 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 ([facility]) COPD (chronic obstructive pulmonary disease) (CMS/HCC) Depression (CMS/HCC) Hypercholesterolemia (CMS/HCC) Meniere's disease, cochlear Osteoporosis (CMS/HCC) Thyroid disease (CMS/HCC) Vitamin D deficiency Past Surgical History: Procedure Laterality Date BREAST BIOPSY 1970 SECTION, LOW TRANSVERSE 1988 COMP PFT 2008 COPD THYROIDECTOMY 1998 Visit Vitals BP 135/76 [...] 0.55 - 1.02 mg/dL Final TBH EGFR-AF ZAMBIAN 11/30/2023 >60 >=60 Final TBH EGFR-NON AF ZAMBIAN 11/30/2023 >60 >=60 Final BUN CREATININE RATIO [...] Televisit, Test/Lab Review. documented in this encounter [facility] Evaluation note Note Date & [...] hypertension documented in this encounter [facility] Evaluation note Note Date & Type Note Facility Evaluation note Diagnosis Panlobular emphysema (HCC)- Primary Other emphysema Acute non-recurrent sinusitis, unspecified location Active cochlear Meniere's disease, unspecified laterality documented in this encounter [facility] Summary Purpose Family History No Family History Records FoundNo Family History Records Found Advance Directives No Advanced Directives Records FoundNo Advanced Directives Records Found Additional Source Comments INFORMATION SOURCE (unrecogn ized section and content) DATE CREATED AUTHOR 08/12/2022 [facility] DATE CREATED AUTHOR AUTHOR'S ORGANIZ ATION 11/08/2024 [facility] [employer] Care Teams (unrecognized sec tion and content) [employer] Installation Helper Relationship Specialty Start Date End Date Flaco Resendiz MD [address] [place] [address] PCP - ACO Reach 09/07/22 Flaco Resendiz MD [address] [place] [address] PCP - General Internal Medicine 09/27/22 [employer] Relationship Specialty Start Date End Date Flaco Resendiz MD [address] [place] [address] PCP - ACO Reach 09/07/22 Flaco Resendiz MD [address] [place] [address] PCP - General Internal Medicine 09/27/22 [employer] Installation Helper Relationship Specialty Start Date End Date Flaco Resendiz MD [address] [place] [address] PCP - ACO Reach 09/07/22 Flaco Resendiz MD [address] [place] [address] PCP - General Internal Medicine 09/27/22 [employer] Installation Helper Relationship Specialty Start Date End Date Flaco Resendiz MD [address] [place] [address] PCP - ACO Reach 09/07/22 Flaco Resendiz MD [address] [place] [address] PCP - General Internal Medicine 09/27/22 [employer] Installation Helper Relationship Specialty Start Date End Date Flaco Resendiz MD [address] [place] [address] PCP - ACO Reach 09/07/22 Flaco Resendiz MD [address] [place] [address] PCP - General Internal Medicine 09/27/22 Zoraida Tabares LPN 07/04/24 [employer] Installation Hel[employer] Relationship Specialty Start Date End Date Flaco Resenidz MD [address] [place] [address] PCP - ACO Reach 09/07/22 Flaco Resendiz MD [address] [place] [address] PCP - General Internal Medicine 09/27/22 Zoraida Tabares LPN [address] [place] [address] 07/04/24 [employer] Installation Helper Relationship Specialty Start Date End Date Flaco Resendiz MD [address] [place] [address] PCP - ACO Reach 09/07/22 Flaco Resendiz MD [address] [place] [address] PCP - General Internal Medicine 09/27/22 Zoraida Tabares LPN [address] [place] [address] 07/04/24 Reason for Visit (unrecogniz ed section and content) Reason Comments COPD Hypertension Results Lab Reason Comments Results Lab results COPD Med Refill Xanax-- [facility] Reason Comments COPD Anxiety lab results Reason Comments Cough Patient has had rece nt increase in cough and dyspnea. She has baseline advanced COPD and is on chronic O2 2l by ID. She is responding to nebulized BD therapy. Needs refills as well FOR RECORDS PERTAINING TO PATIENTS WHO ARE [...] BE BASED ON THE PRIMARY CLINICAL RECORDS. [facility] provides no warranty or guarantee of the accuracy or completeness of information in this document.
[2025-01-16 10:18] LABS: Anion Gap 10.3; Blood Urea Nitrogen 18.0 mg/dL (7.0-18.0); Calcium 9.3 mg/dL (8.5-10.1); Carbon Dioxide 31.0 mmol/L (21.0-32.0); Chloride 97 mmol/L (98-107); Estimated GFR (African America >60 (>=60 mL/min/1.73m^2); Estimated GFR (Non-African Ame >60 (>=60 mL/min/1.73m^2); Glucose 81 mg/dL (74-106); Potassium 4.3 mmol/L (3.5-5.1); Sodium 134 mmol/L (136-145)
== END 2025-01-16 09:22 | disposition home or self-care (01) ==
LOC: LAB 09:21
PROVIDERS: PCP Internal Medicine; Visit Provider Internal Medicine
DX: E87.1 Hypo-osmolality and hyponatremia (principal)
CPT/HCPCS: 36415; 80048